=== PATIENT | male | born 1940 | race Caucasian/White ===

== ENCOUNTER → 2016-12-19 | Outpatient (CLI) | payer MEDICARE ==
--- NOTE | 2016-12-19 14:04 | REP ---
MRI LUMBAR SPINE WITHOUT CONTRAST: 12/19/2016 CLINICAL HISTORY: Low back pain radiating to both legs with weakness. TECHNIQUE: Sagittal T1, T2, and STIR images with axial T1- and T2-sequences provided. No comparison study. FINDINGS: Sagittal images show the vertebral body heights and marrow signal normal except for some minor discogenic endplate changes the superior aspect of L2. There is narrowing of the L5-S1 disc space without disc desiccation. The L4-5 levels and above all show loss of disc water signal. Disc height narrowed at all these levels except for L2-3. Conus terminates at L1-2. T10-11, T11-12, and T12-L1 disc levels show no bulge or herniation and no spinal or foraminal stenosis. At L1-2, there is a broad-based disc bulge without disc herniation. The ligamentum flavum hypertrophy is noted combining to cause some central canal stenosis with the AP canal diameter 8.3 mm. There is foraminal encroachment with loss of perineural fat on the right greater than left. At L2-3, minimal broad-based disc bulge without spinal stenosis. There is ligamentum flavum hypertrophy and minimal facet hypertrophy. Foramina are stenotic on the right more than left due to combined factors. At L3-L4, broad-based disc bulge with a central disc protrusion, ligamentum flavum, and facet hypertrophy attributing to central canal stenosis. The AP canal diameter is about 7 mm. Appears to be some lateral recess stenosis and foraminal encroachment bilaterally due to these combined factors with disc bulge extending into the foramina. At L4-L5, there is a broad-based disc bulge with disc protrusion centrally, right paracentral with a bulge extending into both foramina. There is some ligamentum flavum and facet hypertrophy noted with some lateral recess stenosis, right greater than left. Foramina are stenotic bilaterally due to the broad-based disc bulge and facet arthritis. At L5-S1, there is no evidence of a disc bulge or herniation and no central canal stenosis. The foramina show adequate perineural fat. The lower two levels demonstrate some epidural lipomatosis which is distorting the shape of the thecal sac. IMPRESSION: 1. Diffuse degenerative disc changes with loss of disc water signal and disc space narrowing, as described. No compression deformities. 2. Spondylosis with disc bulges and protrusions at multiple levels with spinal stenosis at L3-4, L2-3, and L1-2. There is also a broad-based bulge disc and protrusion at L4-5 with lateral recess stenosis on the right and multiple foraminal stenoses, as described above. Signed by Jose L Saldana MD 12/19/2016 02:33 P
== END ==
LOC: M RAD 10:03
PROVIDERS: ATTEND Family Medicine
DX: M47.896 Other spondylosis, lumbar region (principal); M51.36 Other intervertebral disc degeneration, lumbar region; M48.06 Spinal stenosis, lumbar region

== ENCOUNTER → 2016-12-29 | Outpatient (REF) | payer MEDICARE ==
[2016-12-29 16:50] LABS: ALBUMIN 4.1 GM/DL (3.2-5.2); CALCIUM LEVEL 9.1 MG/DL (8.8-10.2); CREATININE FOR GFR 1.31 MG/DL (0.70-1.30); GLOMERULAR FILTRATION RATE 56.6 (>42); PHOSPHORUS LEVEL 3.2 MG/DL (2.5-4.9); POTASSIUM SERUM 4.1 MEQ/L (3.5-5.1)
== END ==
LOC: M LABDRAWC 16:10
PROVIDERS: ATTEND Physician Assistant
DX: I50.32 Chronic diastolic (congestive) heart failure (principal)

== ENCOUNTER → 2017-02-27 | Outpatient (REF) | payer MEDICARE ==
[2017-02-27 12:04] LABS: ALBUMIN 3.8 GM/DL (3.2-5.2); ALBUMIN/GLOBULIN RATIO 1.27 (1.00-1.93); BILIRUBIN,TOTAL 0.6 MG/DL (0.2-1.0); CALCIUM LEVEL 9.1 MG/DL (8.8-10.2); CREATININE FOR GFR 1.6 MG/DL (0.70-1.30); MAGNESIUM LEVEL 1.6 MG/DL (1.8-2.4); POTASSIUM SERUM 4.3 MEQ/L (3.5-5.1); TOTAL PROTEIN 6.8 GM/DL (6.4-8.2)
== END ==
LOC: M LABDRAWC 11:23
PROVIDERS: ATTEND Physician Assistant
DX: I50.32 Chronic diastolic (congestive) heart failure (principal); E78.2 Mixed hyperlipidemia; E83.42 Hypomagnesemia

== ENCOUNTER → 2017-03-13 | Outpatient (REF) | payer MEDICARE ==
[2017-03-13 13:06] LABS: ALBUMIN 3.9 GM/DL (3.2-5.2); CALCIUM LEVEL 9.2 MG/DL (8.8-10.2); CREATININE FOR GFR 1.53 MG/DL (0.70-1.30); GLOMERULAR FILTRATION RATE 47.3 (>42); PHOSPHORUS LEVEL 3.5 MG/DL (2.5-4.9); POTASSIUM SERUM 4.1 MEQ/L (3.5-5.1)
== END ==
LOC: M LABDRAWC 12:13
PROVIDERS: ATTEND Physician Assistant
DX: I50.32 Chronic diastolic (congestive) heart failure (principal)

== ENCOUNTER → 2017-06-12 | Outpatient (REF) | payer MEDICARE | LOC: M SFHCCLAY 10:08 | PROVIDERS: ATTEND Family Medicine | DX: E11.9 Type 2 diabetes mellitus without complications (principal) ==

== ENCOUNTER → 2017-06-12 | Outpatient (REF) | payer MEDICARE ==
[2017-06-12 18:20] LABS: ALBUMIN 3.8 GM/DL (3.2-5.2); ALBUMIN/GLOBULIN RATIO 1.27 (1.00-1.93); BILIRUBIN,TOTAL 0.4 MG/DL (0.2-1.0); CALCIUM LEVEL 9.6 MG/DL (8.8-10.2); CREATININE FOR GFR 1.3 MG/DL (0.70-1.30); MAGNESIUM LEVEL 2.1 MG/DL (1.8-2.4); POTASSIUM SERUM 4.4 MEQ/L (3.5-5.1); TOTAL PROTEIN 6.8 GM/DL (6.4-8.2)
== END ==
LOC: M LABDRAWC 17:23
PROVIDERS: ATTEND Physician Assistant
DX: I25.10 Atherosclerotic heart disease of native coronary artery without angina pectoris (principal); I50.32 Chronic diastolic (congestive) heart failure; E78.2 Mixed hyperlipidemia; E11.9 Type 2 diabetes mellitus without complications

== ENCOUNTER → 2017-09-20 | Outpatient (REF) | payer MEDICARE ==
[2017-09-20 13:07] LABS: ALBUMIN 3.7 GM/DL (3.2-5.2); ANION GAP 7 MEQ/L (8-16); BLOOD UREA NITROGEN 18 MG/DL (7-18); CALCIUM LEVEL 9.1 MG/DL (8.8-10.2); CARBON DIOXIDE LEVEL 28 MEQ/L (21-32); CHLORIDE LEVEL 104 MEQ/L (98-107); CHOLESTEROL LEVEL 152 MG/DL (<200); CREATININE FOR GFR 1.07 MG/DL (0.70-1.30); GLOMERULAR FILTRATION RATE > 60.0 (>42); GLUCOSE, FASTING 157 MG/DL (83-110); MAGNESIUM LEVEL 1.8 MG/DL (1.8-2.4); PHOSPHORUS LEVEL 2.9 MG/DL (2.5-4.9); POTASSIUM SERUM 4.4 MEQ/L (3.5-5.1); SODIUM LEVEL 139 MEQ/L (136-145); TRIGLYCERIDES LEVEL 367 MG/DL (<150)
== END ==
LOC: M LAB REF 11:36
PROVIDERS: ATTEND Physician Assistant
DX: I50.32 Chronic diastolic (congestive) heart failure (principal); I25.10 Atherosclerotic heart disease of native coronary artery without angina pectoris; E83.42 Hypomagnesemia; E11.9 Type 2 diabetes mellitus without complications

== ENCOUNTER → 2017-09-20 | Outpatient (REF) | payer MEDICARE | LOC: M SFHCCLAY 09:55 | PROVIDERS: ATTEND Family Medicine | DX: E11.9 Type 2 diabetes mellitus without complications (principal) ==

== ENCOUNTER → 2017-10-23 | Outpatient (CLI) | payer MEDICARE ==
--- NOTE | 2017-10-24 07:22 | REP ---
Bilateral carotid duplex ultrasound: Bilateral carotid artery duplex ultrasound: Peak flow velocity analysis: RIGHT LEFT ICA Peak flow velocity cm/sec upper 73 110 ICA Diastolic flow velocity cm/sec 26 30 ICA/CCA Ratio 0.57 0.81 ECA Peak flow velocity cm/sec 185 141 CCA Peak flow velocity cm/sec 126 136 There is diffuse atheromatous plaque extending from the distal common carotid artery into the carotid bulb into the proximal internal carotid arteries and external carotid arteries bilaterally. The peak flow velocities in the right and left internal carotid arteries are now normal and have decreased from the prior study. The finding is compatible with less than 50% stenosis. The peak flow velocity in the right external carotid artery is mildly elevated from the prior study and compatible with 50 - 69% stenosis as previously. The peak flow velocity in the left external carotid artery has decreased from the prior study and is now compatible with 50 - 69% stenosis. The peak flow velocities in the right and left common carotid arteries are normal. Impression: The peak flow velocities in the right and left carotid arteries are now normal and the findings are compatible with less than 50% stenosis. There is persisting 50 - 69% stenosis in the right and left external carotid arteries, not significantly changed. There is antegrade flow in the vertebral arteries bilaterally. Signed by Silvio Pelaez MD 10/24/2017 07:14 A
== END ==
LOC: M RAD 17:34
PROVIDERS: ATTEND Family Medicine
DX: I65.23 Occlusion and stenosis of bilateral carotid arteries (principal); H53.40 Unspecified visual field defects

== ENCOUNTER → 2017-12-11 | Outpatient (REF) | payer MEDICARE ==
[2017-12-11 19:43] LABS: ALBUMIN 3.8 GM/DL (3.2-5.2); ANION GAP 7 MEQ/L (8-16); BLOOD UREA NITROGEN 24 MG/DL (7-18); CALCIUM LEVEL 8.6 MG/DL (8.8-10.2); CARBON DIOXIDE LEVEL 28 MEQ/L (21-32); CHLORIDE LEVEL 105 MEQ/L (98-107); CREATININE FOR GFR 1.34 MG/DL (0.70-1.30); GLUCOSE, FASTING 245 MG/DL (70-100); MAGNESIUM LEVEL 1.2 MG/DL (1.8-2.4); PHOSPHORUS LEVEL 2.6 MG/DL (2.5-4.9); POTASSIUM SERUM 4.1 MEQ/L (3.5-5.1); SODIUM LEVEL 140 MEQ/L (136-145)
== END ==
LOC: M LABDRWCV 16:44
DX: I50.32 Chronic diastolic (congestive) heart failure (principal); E83.42 Hypomagnesemia
CPT/HCPCS: 83735

== ENCOUNTER → 2017-12-19 | Outpatient (REF) | payer MEDICARE | LOC: M SFHCCLAY 08:57 | DX: E11.9 Type 2 diabetes mellitus without complications (principal) ==

== ENCOUNTER → 2018-01-01 | Outpatient (REF) | payer MEDICARE ==
[2018-01-01 13:48] LABS: MAGNESIUM LEVEL 1.7 MG/DL (1.8-2.4)
[2018-01-01 13:58] LABS: ESTIMATED AVERAGE GLUCOSE 194 MG/DL (60-110); HEMOGLOBIN A1c 8.4 %
== END ==
LOC: M SFHCCLAY 09:12
DX: E11.9 Type 2 diabetes mellitus without complications (principal); E83.42 Hypomagnesemia
CPT/HCPCS: 83735

== ENCOUNTER → 2018-04-02 | Outpatient (REF) | payer MEDICARE ==
[2018-04-02 17:56] LABS: ALBUMIN 3.9 GM/DL (3.2-5.2); ALBUMIN/GLOBULIN RATIO 1.15 (1.00-1.93); ALKALINE PHOSPHATASE 79 U/L (45-117); ALT/SGPT 22 U/L (12-78); ANION GAP 8 MEQ/L (8-16); AST/SGOT 12 U/L (7-37); BILIRUBIN,TOTAL 0.4 MG/DL (0.2-1.0); BLOOD UREA NITROGEN 24 MG/DL (7-18); CALCIUM LEVEL 9.1 MG/DL (8.8-10.2); CARBON DIOXIDE LEVEL 25 MEQ/L (21-32); CHLORIDE LEVEL 108 MEQ/L (98-107); CREATININE FOR GFR 1.37 MG/DL (0.70-1.30); GLOMERULAR FILTRATION RATE 53.5 (>42); GLUCOSE, FASTING 217 MG/DL (70-100); POTASSIUM SERUM 4.4 MEQ/L (3.5-5.1); SODIUM LEVEL 141 MEQ/L (136-145); TOTAL PROTEIN 7.3 GM/DL (6.4-8.2)
== END ==
LOC: M LABDRAWC 16:10
DX: I50.32 Chronic diastolic (congestive) heart failure (principal); E78.2 Mixed hyperlipidemia
CPT/HCPCS: 80053

== ENCOUNTER 2018-07-03 21:09 | Inpatient (IN) | payer MEDICARE ==
[2018-07-03] MEDS: LATANOPROST 0.005% OPHTH SOLN 2.5 ML OU (21:00)
[2018-07-03] MEDS: NS 1,000 ML IV (21:50)
[2018-07-03 22:06] LABS: ANION GAP 12 MEQ/L (8-16); BLOOD UREA NITROGEN 62 MG/DL (7-18); CALCIUM LEVEL 8.2 MG/DL (8.8-10.2); CARBON DIOXIDE LEVEL 16 MEQ/L (21-32); CHLORIDE LEVEL 113 MEQ/L (98-107); CREATININE FOR GFR 1.56 MG/DL (0.70-1.30); GLOMERULAR FILTRATION RATE 46.1 (>42); GLUCOSE, FASTING 225 MG/DL (70-100); POTASSIUM SERUM 4.8 MEQ/L (3.5-5.1); SODIUM LEVEL 141 MEQ/L (136-145)
[2018-07-03 22:09] LABS: ALBUMIN/GLOBULIN RATIO 1.11 (1.00-1.93); ALKALINE PHOSPHATASE 47 U/L (45-117); ALT/SGPT 22 U/L (12-78); AST/SGOT 10 U/L (7-37); BILIRUBIN,DIRECT < 0.1 MG/DL (0.0-0.2); BILIRUBIN,TOTAL 0.2 MG/DL (0.2-1.0); TOTAL PROTEIN 5.7 GM/DL (6.4-8.2)
[2018-07-03 22:35] LABS: INR 1.17; PROTHROMBIN TIME 15.1 SECONDS (12.1-14.4)
[2018-07-03 22:47] LABS: BASO # 0.1 10^3/uL (0.0-0.2); BASO % 0.3 % (0.0-1.0); EOS # 0.1 10^3/uL (0.0-0.50); EOS % 0.8 % (0.0-3.0); IMMATURE GRANULOCYTE % 3.7 % (0-3.0); LYMPH # 1.7 10^3/uL (1.5-4.5); LYMPH % 11.9 % (24.0-44.0); MEAN CORPUSCULAR HEMOGLOBIN 30.9 pg (27.0-33.0); MEAN CORPUSCULAR HGB CONC 31.3 g/dl (32.0-36.5); MEAN CORPUSCULAR VOLUME 98.8 fl (80.0-96.0); MONO # 1.1 10^3/uL (0.0-0.8); MONO % 7.7 % (0.0-5.0); NEUTROPHILS # 11.1 10^3/uL (1.8-7.7); NEUTROPHILS % 75.6 % (36.0-66.0); RED BLOOD COUNT 1.62 10^6/uL (4.30-6.10); RED CELL DISTRIBUTION WIDTH 15.8 % (11.5-14.5); WHITE BLOOD COUNT 14.7 10^3/uL (4.0-10.0)
[2018-07-03 22:50] LABS: PLATELET COUNT, AUTOMATED 4 10^3/uL (150-450); POS COUNT POS FLAG
[2018-07-03 22:51] LABS: IMMATURE PLATELET FRACTION % 30.2 % (0.0-10.9)
[2018-07-03 23:20] LABS: IMMEDIATE SPIN CROSSMATCH 1
[2018-07-04 00:05] LABS: IMMEDIATE SPIN CROSSMATCH 1 2
[2018-07-04] MEDS ORDERED: ACETAMINOPHEN TAB 650MG DOSE (2X325MG) PO (00:15)
[2018-07-04 00:53] LABS: FERRITIN 26 NG/ML (26-388); IRON (FE) 79 UG/DL (65-175); LDH LACTATE DEHYDROGENASE 128 U/L (87-241); PERCENT SATURATION 22.3 % (19.7-50.0); TOTAL IRON BINDING CAPACITY 355 UG/DL (250-450)
[2018-07-04] MEDS ORDERED: GLUCOSE 4 GM CHEW TABLET PO (01:00)
[2018-07-04] MEDS ORDERED: DEXTROSE 50% 50 ML SYRINGE IV (01:00)
[2018-07-04] MEDS ORDERED: IMMUNE GLOBULIN 10% 10GM 100ML 10 GM in APPROPRIATE DILUENT 1 EA IV (01:00)
[2018-07-04] MEDS: IMMUNE GLOBULIN 10% 10GM 100ML 10 GM in APPROPRIATE DILUENT 1 EA IV (01:00)
[2018-07-04] MEDS ORDERED: GLUCAGON FOR INJ 1 MG VIAL (J1610) SC (01:00)
[2018-07-04] MEDS: PANTOPRAZOLE 40MG INJ (PROTONIX) (C9113) IV ×2 (01:36→12:55)
[2018-07-04] MEDS: FUROSEMIDE 20 MG/2 ML VIAL (J1940) IV (01:36)
[2018-07-04] MEDS: methylPREDNISolone INJ 125 MG/2 ML VIAL (J2930) IV (01:36)
[2018-07-04 01:51] LABS: TROPONIN I < 0.02 NG/ML (< 0.10)
[2018-07-04 05:17] LABS: BASO # 0.1 10^3/uL (0.0-0.2); BASO % 0.3 % (0.0-1.0); EOS % 0.3 % (0.0-3.0); HEMATOCRIT 21.4 % (42.0-52.0); IMMATURE GRANULOCYTE % 3.8 % (0-3.0); MEAN CORPUSCULAR HEMOGLOBIN 31.4 pg (27.0-33.0); MEAN CORPUSCULAR HGB CONC 33.2 g/dl (32.0-36.5); MEAN CORPUSCULAR VOLUME 94.7 fl (80.0-96.0); MONO # 0.5 10^3/uL (0.0-0.8); MONO % 3.2 % (0.0-5.0); NEUTROPHILS # 12.4 10^3/uL (1.8-7.7); NEUTROPHILS % 85.4 % (36.0-66.0); RED BLOOD COUNT 2.26 10^6/uL (4.30-6.10); RED CELL DISTRIBUTION WIDTH 15.7 % (11.5-14.5); WHITE BLOOD COUNT 14.5 10^3/uL (4.0-10.0)
[2018-07-04 05:20] LABS: HEMOGLOBIN 7.1 g/dl (13.5-17.5); PLATELET COUNT, AUTOMATED 10 10^3/uL (150-450); POS COUNT POS FLAG
[2018-07-04 05:35] LABS: ALBUMIN 3.4 GM/DL (3.2-5.2); ALBUMIN/GLOBULIN RATIO 1.13 (1.00-1.93); ALKALINE PHOSPHATASE 52 U/L (45-117); ALT/SGPT 23 U/L (12-78); ANION GAP 11 MEQ/L (8-16); AST/SGOT 13 U/L (7-37); BILIRUBIN,TOTAL 0.6 MG/DL (0.2-1.0); BLOOD UREA NITROGEN 69 MG/DL (7-18); CALCIUM LEVEL 8.4 MG/DL (8.8-10.2); CARBON DIOXIDE LEVEL 17 MEQ/L (21-32); CHLORIDE LEVEL 111 MEQ/L (98-107); GLOMERULAR FILTRATION RATE 44.7 (>42); GLUCOSE, FASTING 252 MG/DL (70-100); SODIUM LEVEL 139 MEQ/L (136-145); TOTAL PROTEIN 6.4 GM/DL (6.4-8.2)
[2018-07-04] MEDS: IMMUNE GLOBULIN 10% 20GM 200ML 20 GM in APPROPRIATE DILUENT 1 EA IV ×2 (05:48→08:24)
[2018-07-04 07:37] LABS: REASON FOR REVIEW WBC/LEUKEMIA/BLAST; SOURCE PERIPHERAL SMEAR
[2018-07-04] MEDS: HumaLOG INSULIN (NovoLOG) PER UNIT SC ×4 (08:31→20:14)
[2018-07-04] MEDS: predniSONE 20 MG TAB PO (08:31)
[2018-07-04] MEDS: BISOPROLOL FUMARATE 10 MG TAB PO (08:32)
[2018-07-04 08:46] LABS: DIFF SLIDE NUMBER YES
[2018-07-04 09:33] LABS: VITAMIN B12 LEVEL 238 PG/ML (247-911)
[2018-07-04 09:34] LABS: FOLATE 15.1 NG/ML (>5.4)
[2018-07-04 12:51] LABS: BEDSIDE GLUCOSE 322 MG/DL (83-110)
[2018-07-04 13:16] LABS: IMMEDIATE SPIN CROSSMATCH 1 2
[2018-07-04 15:28] LABS: HEMATOCRIT 24.3 % (42.0-52.0); HEMOGLOBIN 8.2 g/dl (13.5-17.5); MEAN CORPUSCULAR HEMOGLOBIN 30.5 pg (27.0-33.0); MEAN CORPUSCULAR HGB CONC 33.7 g/dl (32.0-36.5); MEAN CORPUSCULAR VOLUME 90.3 fl (80.0-96.0); RED BLOOD COUNT 2.69 10^6/uL (4.30-6.10); RED CELL DISTRIBUTION WIDTH 16.7 % (11.5-14.5); WHITE BLOOD COUNT 15.4 10^3/uL (4.0-10.0)
[2018-07-04 15:35] LABS: ADD MANUAL DIFFER YES; DIFF SLIDE NUMBER 81; PLATELET COUNT, AUTOMATED 35 10^3/uL (150-450)
[2018-07-04 16:06] LABS: IMMEDIATE SPIN CROSSMATCH 1
[2018-07-04 16:11] LABS: BANDS 1 % (< 11); LYMPHOCYTES 11 % (16-52); METAMYELOCYTES 2 % (0-0); MYELOCYTES 1 % (0-0); NEUTROPHILS 83 % (35-75)
[2018-07-04 16:12] LABS: PLATELET ESTIMATE DECREASED (NORMAL); POLYCHROMASIA 1+
[2018-07-04 16:13] LABS: BURR CELLS 2+
[2018-07-04 16:14] LABS: MONOCYTES 2 % (0-8)
[2018-07-04 16:25] LABS: RETIC HEMOGLOBIN EQUIVALENT 33.9 pg (24-36); RETICULOCYTE # 189.8 10^9/L (17-77)
[2018-07-04 17:35] LABS: BEDSIDE GLUCOSE 304 MG/DL (83-110)
[2018-07-04] MEDS: FAMOTIDINE 20 MG TAB PO (17:41)
[2018-07-04] MEDS: LATANOPROST 0.005% OPHTH SOLN 2.5 ML OU (20:12)
[2018-07-04 20:17] LABS: BEDSIDE GLUCOSE 212 MG/DL (83-110)
[2018-07-04 20:23] LABS: SLIDE REVIEW Report
[2018-07-04] MEDS ORDERED: LISINOPRIL 20 MG TAB PO (21:00)
[2018-07-04 22:45] LABS: BASO % 0.3 % (0.0-1.0); EOS % 0.1 % (0.0-3.0); HEMATOCRIT 22.8 % (42.0-52.0); HEMOGLOBIN 7.6 g/dl (13.5-17.5); IMMATURE GRANULOCYTE % 4.4 % (0-3.0); LYMPH % 6.6 % (24.0-44.0); MEAN CORPUSCULAR HEMOGLOBIN 30.9 pg (27.0-33.0); MEAN CORPUSCULAR HGB CONC 33.3 g/dl (32.0-36.5); MEAN CORPUSCULAR VOLUME 92.7 fl (80.0-96.0); MONO # 1.3 10^3/uL (0.0-0.8); MONO % 8.3 % (0.0-5.0); NEUTROPHILS # 12.4 10^3/uL (1.8-7.7); NEUTROPHILS % 80.3 % (36.0-66.0); RED BLOOD COUNT 2.46 10^6/uL (4.30-6.10); RED CELL DISTRIBUTION WIDTH 17.3 % (11.5-14.5); WHITE BLOOD COUNT 15.4 10^3/uL (4.0-10.0)
[2018-07-04 22:51] LABS: PLATELET COUNT, AUTOMATED 53 10^3/uL (150-450); POS COUNT POS FLAG
[2018-07-04 22:52] LABS: IMMATURE PLATELET FRACTION % 18.2 % (0.0-10.9)
[2018-07-05] MEDS: PANTOPRAZOLE 40MG INJ (PROTONIX) (C9113) IV ×3 (00:32→21:21)
[2018-07-05 06:53] LABS: BASO % 0.1 % (0.0-1.0); HEMATOCRIT 21.3 % (42.0-52.0); HEMOGLOBIN 7.3 g/dl (13.5-17.5); IMMATURE GRANULOCYTE % 3.2 % (0-3.0); LYMPH # 0.9 10^3/uL (1.5-4.5); MEAN CORPUSCULAR HGB CONC 34.3 g/dl (32.0-36.5); MEAN CORPUSCULAR VOLUME 93.4 fl (80.0-96.0); MONO % 8.6 % (0.0-5.0); NEUTROPHILS # 9.1 10^3/uL (1.8-7.7); NEUTROPHILS % 80.1 % (36.0-66.0); RED BLOOD COUNT 2.28 10^6/uL (4.30-6.10); RED CELL DISTRIBUTION WIDTH 17.8 % (11.5-14.5); WHITE BLOOD COUNT 11.4 10^3/uL (4.0-10.0)
[2018-07-05 07:01] LABS: PLATELET COUNT, AUTOMATED 54 10^3/uL (150-450)
[2018-07-05 07:10] LABS: ALBUMIN 2.8 GM/DL (3.2-5.2); ALKALINE PHOSPHATASE 40 U/L (45-117); ALT/SGPT 23 U/L (12-78); ANION GAP 9 MEQ/L (8-16); AST/SGOT 15 U/L (7-37); BILIRUBIN,TOTAL 0.4 MG/DL (0.2-1.0); BLOOD UREA NITROGEN 62 MG/DL (7-18); CALCIUM LEVEL 8.1 MG/DL (8.8-10.2); CARBON DIOXIDE LEVEL 19 MEQ/L (21-32); CHLORIDE LEVEL 113 MEQ/L (98-107); CREATININE FOR GFR 1.62 MG/DL (0.70-1.30); GLOMERULAR FILTRATION RATE 44.1 (>42); GLUCOSE, FASTING 167 MG/DL (70-100); POTASSIUM SERUM 4.2 MEQ/L (3.5-5.1); SODIUM LEVEL 141 MEQ/L (136-145); TOTAL PROTEIN 6.3 GM/DL (6.4-8.2)
[2018-07-05] MEDS: HumaLOG INSULIN (NovoLOG) PER UNIT SC ×4 (07:46→21:37)
[2018-07-05] MEDS ORDERED: PREVNAR 13 VACCINE SYRINGE (CPT CODE:90670) IM (09:00)
[2018-07-05] MEDS: BISOPROLOL FUMARATE 10 MG TAB PO (09:07)
[2018-07-05] MEDS: predniSONE 20 MG TAB PO (09:08)
[2018-07-05 12:16] LABS: BEDSIDE GLUCOSE 211 MG/DL (83-110)
[2018-07-05] MEDS ORDERED: LORazepam 2 MG/ML VIAL (J2060) As Ordered (12:42)
[2018-07-05] MEDS: LIDOCAINE 1% MDV 20ML VIAL IM (12:45)
[2018-07-05] MEDS: LORazepam 2 MG/ML VIAL (J2060) IV (12:56)
[2018-07-05] MEDS ORDERED: LIDOCAINE 2% INJ 100 MG/5 ML SDV (FOR ANES.) As Ordered (16:06)
[2018-07-05] MEDS ORDERED: PROPOFOL 200 MG/20 ML VIAL As Ordered ×2 (16:06→16:33)
[2018-07-05] MEDS ORDERED: fentaNYL 100 MCG/2 ML INJECTION (J3010) As Ordered (16:07)
[2018-07-05] MEDS ORDERED: ePHEDrine SULFATE 25 MG/5 ML(5MG/ML) SYRINGE As Ordered (16:38)
[2018-07-05 16:51] LABS: BEDSIDE GLUCOSE 230 MG/DL (83-110)
[2018-07-05] MEDS ORDERED: ONDANSETRON 4MG/2ML VIAL (J2405) IV (17:00)
[2018-07-05] MEDS: CYANOCOBALAMIN 500 MCG TAB PO (18:17)
[2018-07-05] MEDS: KCL 20MEQ IN 0.45NS 1000ML 1,000 ML IV (18:17)
[2018-07-05] MEDS: FAMOTIDINE 20 MG TAB PO (18:17)
[2018-07-05] MEDS: LR 1,000 ML IV (18:20)
[2018-07-05 20:00] LABS: BASO % 0.1 % (0.0-1.0); HEMATOCRIT 23.3 % (42.0-52.0); HEMOGLOBIN 7.7 g/dl (13.5-17.5); IMMATURE GRANULOCYTE % 2.6 % (0-3.0); LYMPH # 0.8 10^3/uL (1.5-4.5); LYMPH % 6.9 % (24.0-44.0); MEAN CORPUSCULAR HEMOGLOBIN 30.7 pg (27.0-33.0); MEAN CORPUSCULAR VOLUME 92.8 fl (80.0-96.0); MONO # 0.7 10^3/uL (0.0-0.8); MONO % 5.8 % (0.0-5.0); NEUTROPHILS # 9.6 10^3/uL (1.8-7.7); NEUTROPHILS % 84.6 % (36.0-66.0); RED BLOOD COUNT 2.51 10^6/uL (4.30-6.10); RED CELL DISTRIBUTION WIDTH 17.7 % (11.5-14.5); WHITE BLOOD COUNT 11.4 10^3/uL (4.0-10.0)
[2018-07-05 20:05] LABS: PLATELET COUNT, AUTOMATED 26 10^3/uL (150-450); POS COUNT POS FLAG; POSITIVE MORPH POS FLAG
[2018-07-05] MEDS: LATANOPROST 0.005% OPHTH SOLN 2.5 ML OU (21:22)
[2018-07-05 21:34] LABS: BEDSIDE GLUCOSE 252 MG/DL (83-110)
[2018-07-05] MEDS: LEVEMIR (INSULIN DETEMIR) 1 UNITS/0.01ML SC (21:38)
[2018-07-05 22:09] LABS: BASO % 0.2 % (0.0-1.0); HEMATOCRIT 28.7 % (42.0-52.0); HEMOGLOBIN 8.5 g/dl (13.5-17.5); IMMATURE GRANULOCYTE % 2.2 % (0-3.0); LYMPH # 0.7 10^3/uL (1.5-4.5); LYMPH % 6.7 % (24.0-44.0); MEAN CORPUSCULAR HGB CONC 29.6 g/dl (32.0-36.5); MEAN CORPUSCULAR VOLUME 104.7 fl (80.0-96.0); MONO # 0.8 10^3/uL (0.0-0.8); NEUTROPHILS # 9.1 10^3/uL (1.8-7.7); NEUTROPHILS % 83.9 % (36.0-66.0); RED BLOOD COUNT 2.74 10^6/uL (4.30-6.10); RED CELL DISTRIBUTION WIDTH 18.5 % (11.5-14.5); WHITE BLOOD COUNT 10.8 10^3/uL (4.0-10.0)
[2018-07-05 22:10] LABS: PLATELET COUNT, AUTOMATED 35 10^3/uL (150-450)
[2018-07-06 06:36] LABS: HEMATOCRIT 22.5 % (42.0-52.0); HEMOGLOBIN 7.3 g/dl (13.5-17.5); IMMATURE GRANULOCYTE % 1.8 % (0-3.0); LYMPH # 1.2 10^3/uL (1.5-4.5); LYMPH % 15.9 % (24.0-44.0); MEAN CORPUSCULAR HEMOGLOBIN 30.9 pg (27.0-33.0); MEAN CORPUSCULAR HGB CONC 32.4 g/dl (32.0-36.5); MEAN CORPUSCULAR VOLUME 95.3 fl (80.0-96.0); MONO # 0.7 10^3/uL (0.0-0.8); MONO % 8.7 % (0.0-5.0); NEUTROPHILS # 5.7 10^3/uL (1.8-7.7); NEUTROPHILS % 73.6 % (36.0-66.0); RED BLOOD COUNT 2.36 10^6/uL (4.30-6.10); RED CELL DISTRIBUTION WIDTH 18.3 % (11.5-14.5); WHITE BLOOD COUNT 7.7 10^3/uL (4.0-10.0)
[2018-07-06 06:38] LABS: IMMATURE PLATELET FRACTION % 21.6 % (0.0-10.9); PLATELET COUNT, AUTOMATED 40 10^3/uL (150-450); POS COUNT POS FLAG
[2018-07-06 07:00] LABS: ALBUMIN 2.9 GM/DL (3.2-5.2); ALBUMIN/GLOBULIN RATIO 0.83 (1.00-1.93); ALKALINE PHOSPHATASE 54 U/L (45-117); ALT/SGPT 30 U/L (12-78); ANION GAP 7 MEQ/L (8-16); AST/SGOT 18 U/L (7-37); BILIRUBIN,TOTAL 0.4 MG/DL (0.2-1.0); BLOOD UREA NITROGEN 54 MG/DL (7-18); CARBON DIOXIDE LEVEL 22 MEQ/L (21-32); CHLORIDE LEVEL 113 MEQ/L (98-107); CREATININE FOR GFR 1.54 MG/DL (0.70-1.30); GLOMERULAR FILTRATION RATE 46.7 (>42); GLUCOSE, FASTING 155 MG/DL (70-100); POTASSIUM SERUM 4.3 MEQ/L (3.5-5.1); SODIUM LEVEL 142 MEQ/L (136-145); TOTAL PROTEIN 6.4 GM/DL (6.4-8.2)
[2018-07-06] MEDS: PANTOPRAZOLE 40MG INJ (PROTONIX) (C9113) IV ×2 (08:12→20:43)
[2018-07-06] MEDS: CYANOCOBALAMIN 500 MCG TAB PO (08:12)
[2018-07-06] MEDS: BISOPROLOL FUMARATE 10 MG TAB PO (08:12)
[2018-07-06] MEDS: predniSONE 20 MG TAB PO (08:12)
[2018-07-06] MEDS: HumaLOG INSULIN (NovoLOG) PER UNIT SC ×4 (08:13→21:29)
[2018-07-06 08:24] LABS: HAPTOGLOBIN 143 mg/dL (34-200)
[2018-07-06] MEDS ORDERED: PANTOPRAZOLE 20 MG TAB PO (09:00)
[2018-07-06 12:34] LABS: BEDSIDE GLUCOSE 300 MG/DL (83-110)
[2018-07-06 14:52] LABS: IMMEDIATE SPIN CROSSMATCH 1 2
[2018-07-06 17:01] LABS: BEDSIDE GLUCOSE 252 MG/DL (83-110)
[2018-07-06] MEDS: FAMOTIDINE 20 MG TAB PO (17:30)
[2018-07-06] MEDS: LATANOPROST 0.005% OPHTH SOLN 2.5 ML OU (20:43)
[2018-07-06 21:15] LABS: BEDSIDE GLUCOSE 268 MG/DL (83-110)
[2018-07-06] MEDS: LEVEMIR (INSULIN DETEMIR) 1 UNITS/0.01ML SC (21:29)
[2018-07-07 07:56] LABS: BEDSIDE GLUCOSE 129 MG/DL (83-110)
[2018-07-07] MEDS: HumaLOG INSULIN (NovoLOG) PER UNIT SC ×4 (08:15→21:20)
[2018-07-07] MEDS: predniSONE 20 MG TAB PO (08:16)
[2018-07-07] MEDS: BISOPROLOL FUMARATE 10 MG TAB PO (08:16)
[2018-07-07] MEDS: PANTOPRAZOLE 40MG INJ (PROTONIX) (C9113) IV ×2 (08:16→21:19)
[2018-07-07] MEDS: CYANOCOBALAMIN 500 MCG TAB PO (08:16)
[2018-07-07 11:56] LABS: BEDSIDE GLUCOSE 210 MG/DL (83-110)
[2018-07-07 15:17] LABS: BASO % 0.2 % (0.0-1.0); HEMATOCRIT 29.4 % (42.0-52.0); HEMOGLOBIN 9.6 g/dl (13.5-17.5); IMMATURE GRANULOCYTE % 0.8 % (0-3.0); LYMPH # 0.4 10^3/uL (1.5-4.5); LYMPH % 6.7 % (24.0-44.0); MEAN CORPUSCULAR HEMOGLOBIN 30.7 pg (27.0-33.0); MEAN CORPUSCULAR HGB CONC 32.7 g/dl (32.0-36.5); MEAN CORPUSCULAR VOLUME 93.9 fl (80.0-96.0); MONO # 0.2 10^3/uL (0.0-0.8); MONO % 2.7 % (0.0-5.0); NEUTROPHILS # 5.4 10^3/uL (1.8-7.7); NEUTROPHILS % 89.6 % (36.0-66.0); RED BLOOD COUNT 3.13 10^6/uL (4.30-6.10); RED CELL DISTRIBUTION WIDTH 17.2 % (11.5-14.5)
[2018-07-07 15:21] LABS: PLATELET COUNT, AUTOMATED 51 10^3/uL (150-450)
[2018-07-07 15:35] LABS: ANION GAP 13 MEQ/L (8-16); BLOOD UREA NITROGEN 32 MG/DL (7-18); CALCIUM LEVEL 7.9 MG/DL (8.8-10.2); CARBON DIOXIDE LEVEL 17 MEQ/L (21-32); CHLORIDE LEVEL 112 MEQ/L (98-107); CREATININE FOR GFR 1.64 MG/DL (0.70-1.30); GLOMERULAR FILTRATION RATE 43.5 (>42); GLUCOSE, FASTING 374 MG/DL (70-100); POTASSIUM SERUM 4.4 MEQ/L (3.5-5.1); SODIUM LEVEL 142 MEQ/L (136-145)
[2018-07-07] MEDS: FAMOTIDINE 20 MG TAB PO (16:43)
[2018-07-07 16:44] LABS: BEDSIDE GLUCOSE 378 MG/DL (83-110)
[2018-07-07 19:56] LABS: BEDSIDE GLUCOSE 270 MG/DL (83-110)
[2018-07-07] MEDS: LEVEMIR (INSULIN DETEMIR) 1 UNITS/0.01ML SC (21:20)
[2018-07-07] MEDS: LATANOPROST 0.005% OPHTH SOLN 2.5 ML OU (21:27)
[2018-07-08 06:33] LABS: ANION GAP 8 MEQ/L (8-16); BLOOD UREA NITROGEN 29 MG/DL (7-18); CALCIUM LEVEL 8.5 MG/DL (8.8-10.2); CARBON DIOXIDE LEVEL 21 MEQ/L (21-32); CHLORIDE LEVEL 114 MEQ/L (98-107); CREATININE FOR GFR 1.29 MG/DL (0.70-1.30); GLOMERULAR FILTRATION RATE 57.3 (>42); GLUCOSE, FASTING 125 MG/DL (70-100); POTASSIUM SERUM 4.2 MEQ/L (3.5-5.1); SODIUM LEVEL 143 MEQ/L (136-145)
[2018-07-08 06:49] LABS: BASO % 0.1 % (0.0-1.0); HEMOGLOBIN 10.2 g/dl (13.5-17.5); IMMATURE GRANULOCYTE % 0.6 % (0-3.0); LYMPH # 1.3 10^3/uL (1.5-4.5); LYMPH % 19.1 % (24.0-44.0); MEAN CORPUSCULAR HEMOGLOBIN 30.2 pg (27.0-33.0); MEAN CORPUSCULAR HGB CONC 32.9 g/dl (32.0-36.5); MEAN CORPUSCULAR VOLUME 91.7 fl (80.0-96.0); MONO # 0.6 10^3/uL (0.0-0.8); NEUTROPHILS # 4.9 10^3/uL (1.8-7.7); NEUTROPHILS % 71.2 % (36.0-66.0); RED BLOOD COUNT 3.38 10^6/uL (4.30-6.10); RED CELL DISTRIBUTION WIDTH 16.4 % (11.5-14.5); WHITE BLOOD COUNT 6.9 10^3/uL (4.0-10.0)
[2018-07-08 06:51] LABS: PLATELET COUNT, AUTOMATED 55 10^3/uL (150-450)
[2018-07-08] MEDS: PANTOPRAZOLE 40MG INJ (PROTONIX) (C9113) IV ×2 (08:16→20:21)
[2018-07-08] MEDS: CYANOCOBALAMIN 500 MCG TAB PO (08:17)
[2018-07-08] MEDS: predniSONE 20 MG TAB PO (08:17)
[2018-07-08] MEDS: HumaLOG INSULIN (NovoLOG) PER UNIT SC ×4 (08:17→20:22)
[2018-07-08] MEDS: BISOPROLOL FUMARATE 10 MG TAB PO (08:18)
[2018-07-08 12:02] LABS: BEDSIDE GLUCOSE 253 MG/DL (83-110)
[2018-07-08 16:45] LABS: BEDSIDE GLUCOSE 264 MG/DL (83-110)
[2018-07-08] MEDS: FAMOTIDINE 20 MG TAB PO (17:37)
[2018-07-08 20:14] LABS: BEDSIDE GLUCOSE 322 MG/DL (83-110)
[2018-07-08] MEDS: LATANOPROST 0.005% OPHTH SOLN 2.5 ML OU (20:21)
[2018-07-08] MEDS: LEVEMIR (INSULIN DETEMIR) 1 UNITS/0.01ML SC (20:22)
[2018-07-09 00:06] LABS: ADAMTS13 Activity 53.9 % (>66.8)
[2018-07-09] MEDS: MOM 30ML SUSPENSION UDC PO (06:08)
[2018-07-09 07:41] LABS: ANION GAP 9 MEQ/L (8-16); BLOOD UREA NITROGEN 24 MG/DL (7-18); CALCIUM LEVEL 8.2 MG/DL (8.8-10.2); CARBON DIOXIDE LEVEL 21 MEQ/L (21-32); CHLORIDE LEVEL 114 MEQ/L (98-107); CREATININE FOR GFR 1.24 MG/DL (0.70-1.30); GLUCOSE, FASTING 107 MG/DL (70-100); POTASSIUM SERUM 3.9 MEQ/L (3.5-5.1); SODIUM LEVEL 144 MEQ/L (136-145)
[2018-07-09] MEDS: HumaLOG INSULIN (NovoLOG) PER UNIT SC ×4 (08:10→21:55)
[2018-07-09] MEDS: PANTOPRAZOLE 40MG INJ (PROTONIX) (C9113) IV ×2 (08:11→21:54)
[2018-07-09] MEDS: BISOPROLOL FUMARATE 10 MG TAB PO (08:13)
[2018-07-09] MEDS: CYANOCOBALAMIN 500 MCG TAB PO (08:13)
[2018-07-09] MEDS: predniSONE 20 MG TAB PO (08:14)
[2018-07-09 08:17] LABS: EOS % 0.4 % (0.0-3.0); HEMATOCRIT 29.1 % (42.0-52.0); HEMOGLOBIN 9.8 g/dl (13.5-17.5); IMMATURE GRANULOCYTE % 0.5 % (0-3.0); LYMPH # 1.4 10^3/uL (1.5-4.5); LYMPH % 24.2 % (24.0-44.0); MEAN CORPUSCULAR HEMOGLOBIN 30.2 pg (27.0-33.0); MEAN CORPUSCULAR HGB CONC 33.7 g/dl (32.0-36.5); MEAN CORPUSCULAR VOLUME 89.8 fl (80.0-96.0); MONO # 0.5 10^3/uL (0.0-0.8); MONO % 9.6 % (0.0-5.0); NEUTROPHILS # 3.7 10^3/uL (1.8-7.7); NEUTROPHILS % 65.3 % (36.0-66.0); RED BLOOD COUNT 3.24 10^6/uL (4.30-6.10); RED CELL DISTRIBUTION WIDTH 15.8 % (11.5-14.5); WHITE BLOOD COUNT 5.6 10^3/uL (4.0-10.0)
[2018-07-09 08:18] LABS: PLATELET COUNT, AUTOMATED 51 10^3/uL (150-450)
[2018-07-09 08:22] LABS: IMMATURE PLATELET FRACTION % 7.6 % (0.0-10.9); PLATELET F 3.6
[2018-07-09 11:48] LABS: BEDSIDE GLUCOSE 172 MG/DL (83-110)
[2018-07-09] MEDS: GOLYTELY SOLN 4000 ML BTL PO (16:00)
[2018-07-09] MEDS: FAMOTIDINE 20 MG TAB PO (17:59)
[2018-07-09 21:05] LABS: BEDSIDE GLUCOSE 155 MG/DL (83-110)
[2018-07-09] MEDS: LATANOPROST 0.005% OPHTH SOLN 2.5 ML OU (21:54)
[2018-07-09] MEDS: LEVEMIR (INSULIN DETEMIR) 1 UNITS/0.01ML SC (21:54)
[2018-07-10] MEDS: GOLYTELY SOLN 4000 ML BTL PO (04:54)
[2018-07-10 07:03] LABS: BASO % 0.2 % (0.0-1.0); EOS % 0.3 % (0.0-3.0); HEMATOCRIT 31.3 % (42.0-52.0); HEMOGLOBIN 10.3 g/dl (13.5-17.5); IMMATURE GRANULOCYTE % 0.5 % (0-3.0); LYMPH # 1.6 10^3/uL (1.5-4.5); LYMPH % 23.6 % (24.0-44.0); MEAN CORPUSCULAR HEMOGLOBIN 29.9 pg (27.0-33.0); MEAN CORPUSCULAR HGB CONC 32.9 g/dl (32.0-36.5); MONO # 0.6 10^3/uL (0.0-0.8); MONO % 9.5 % (0.0-5.0); NEUTROPHILS # 4.4 10^3/uL (1.8-7.7); NEUTROPHILS % 65.9 % (36.0-66.0); RED BLOOD COUNT 3.44 10^6/uL (4.30-6.10); RED CELL DISTRIBUTION WIDTH 15.4 % (11.5-14.5); WHITE BLOOD COUNT 6.6 10^3/uL (4.0-10.0)
[2018-07-10 07:12] LABS: PLATELET COUNT, AUTOMATED 50 10^3/uL (150-450)
[2018-07-10 07:14] LABS: ANION GAP 8 MEQ/L (8-16); BLOOD UREA NITROGEN 20 MG/DL (7-18); CALCIUM LEVEL 8.5 MG/DL (8.8-10.2); CARBON DIOXIDE LEVEL 24 MEQ/L (21-32); CHLORIDE LEVEL 109 MEQ/L (98-107); CREATININE FOR GFR 1.19 MG/DL (0.70-1.30); GLOMERULAR FILTRATION RATE > 60.0 (>42); GLUCOSE, FASTING 91 MG/DL (70-100); POTASSIUM SERUM 3.9 MEQ/L (3.5-5.1); SODIUM LEVEL 141 MEQ/L (136-145)
[2018-07-10] MEDS: HumaLOG INSULIN (NovoLOG) PER UNIT SC ×4 (07:30→21:30)
[2018-07-10] MEDS: predniSONE 20 MG TAB PO (10:03)
[2018-07-10] MEDS: CYANOCOBALAMIN 500 MCG TAB PO (10:03)
[2018-07-10] MEDS: BISOPROLOL FUMARATE 10 MG TAB PO (10:04)
[2018-07-10] MEDS: PANTOPRAZOLE 40MG INJ (PROTONIX) (C9113) IV ×2 (10:04→21:29)
[2018-07-10 12:24] LABS: FLOW CYTOMETRY FOR SEND OUT See Pathology Report
[2018-07-10] MEDS ORDERED: PROPOFOL 200 MG/20 ML VIAL As Ordered (14:30)
[2018-07-10] MEDS ORDERED: LIDOCAINE 2% INJ 100 MG/5 ML SDV (FOR ANES.) As Ordered (14:30)
[2018-07-10] MEDS ORDERED: GLUCAGON FOR INJ 1 MG VIAL (J1610) As Ordered ×2 (15:47→16:15)
[2018-07-10] MEDS: FAMOTIDINE 20 MG TAB PO (18:05)
[2018-07-10 20:21] LABS: BEDSIDE GLUCOSE 147 MG/DL (83-110)
[2018-07-10 20:21] LABS: BEDSIDE GLUCOSE 167 MG/DL (83-110)
[2018-07-10 20:21] LABS: BEDSIDE GLUCOSE 260 MG/DL (83-110)
[2018-07-10 20:21] LABS: BEDSIDE GLUCOSE 260 MG/DL (83-110)
[2018-07-10] MEDS: LEVEMIR (INSULIN DETEMIR) 1 UNITS/0.01ML SC (21:29)
[2018-07-10] MEDS: LATANOPROST 0.005% OPHTH SOLN 2.5 ML OU (21:30)
[2018-07-11 08:08] LABS: BEDSIDE GLUCOSE 118 MG/DL (83-110)
[2018-07-11 08:22] LABS: EOS % 0.2 % (0.0-3.0); HEMATOCRIT 30.2 % (42.0-52.0); IMMATURE GRANULOCYTE % 0.5 % (0-3.0); LYMPH # 1.4 10^3/uL (1.5-4.5); LYMPH % 16.3 % (24.0-44.0); MEAN CORPUSCULAR HGB CONC 33.1 g/dl (32.0-36.5); MEAN CORPUSCULAR VOLUME 90.7 fl (80.0-96.0); MONO # 0.7 10^3/uL (0.0-0.8); MONO % 7.8 % (0.0-5.0); NEUTROPHILS # 6.7 10^3/uL (1.8-7.7); NEUTROPHILS % 75.2 % (36.0-66.0); RED BLOOD COUNT 3.33 10^6/uL (4.30-6.10); RED CELL DISTRIBUTION WIDTH 15.4 % (11.5-14.5); WHITE BLOOD COUNT 8.8 10^3/uL (4.0-10.0)
[2018-07-11 08:25] LABS: POS COUNT POS FLAG
[2018-07-11 08:26] LABS: PLATELET COUNT, AUTOMATED 16 10^3/uL (150-450)
[2018-07-11 08:27] LABS: IMMATURE PLATELET FRACTION % 26.4 % (0.0-10.9)
[2018-07-11 08:39] LABS: ANION GAP 11 MEQ/L (8-16); BLOOD UREA NITROGEN 20 MG/DL (7-18); CALCIUM LEVEL 8.3 MG/DL (8.8-10.2); CARBON DIOXIDE LEVEL 23 MEQ/L (21-32); CHLORIDE LEVEL 112 MEQ/L (98-107); CREATININE FOR GFR 1.16 MG/DL (0.70-1.30); GLOMERULAR FILTRATION RATE > 60.0 (>42); GLUCOSE, FASTING 94 MG/DL (70-100); POTASSIUM SERUM 3.5 MEQ/L (3.5-5.1); SODIUM LEVEL 146 MEQ/L (136-145)
[2018-07-11] MEDS: BISOPROLOL FUMARATE 10 MG TAB PO (08:49)
[2018-07-11] MEDS: HumaLOG INSULIN (NovoLOG) PER UNIT SC ×2 (08:49→12:30)
[2018-07-11] MEDS: CYANOCOBALAMIN 500 MCG TAB PO (08:49)
[2018-07-11] MEDS: PANTOPRAZOLE 40MG INJ (PROTONIX) (C9113) IV (08:50)
[2018-07-11] MEDS: predniSONE 20 MG TAB PO (08:50)
[2018-07-11 09:50] LABS: HIV 1&2 SCREEN CENTAUR NEGATIVE (NEGATIVE)
[2018-07-11 10:37] LABS: EOS % 0.2 % (0.0-3.0); HEMATOCRIT 33.3 % (42.0-52.0); HEMOGLOBIN 10.7 g/dl (13.5-17.5); IMMATURE GRANULOCYTE % 0.3 % (0-3.0); LYMPH # 1.2 10^3/uL (1.5-4.5); LYMPH % 12.4 % (24.0-44.0); MEAN CORPUSCULAR HEMOGLOBIN 29.8 pg (27.0-33.0); MEAN CORPUSCULAR HGB CONC 32.1 g/dl (32.0-36.5); MEAN CORPUSCULAR VOLUME 92.8 fl (80.0-96.0); MONO # 0.9 10^3/uL (0.0-0.8); MONO % 9.5 % (0.0-5.0); NEUTROPHILS # 7.3 10^3/uL (1.8-7.7); NEUTROPHILS % 77.6 % (36.0-66.0); RED BLOOD COUNT 3.59 10^6/uL (4.30-6.10); RED CELL DISTRIBUTION WIDTH 15.6 % (11.5-14.5); WHITE BLOOD COUNT 9.5 10^3/uL (4.0-10.0)
[2018-07-11 10:40] LABS: PLATELET COUNT, AUTOMATED 44 10^3/uL (150-450)
== END 2018-07-11 12:50 | disposition home or self-care (01) | DRG 813 ==
LOC: M ED INP 07-04 00:13 → M ICU 07-04 01:09 → M MS5PR 07-05 22:00 → M ED 21:09 → M MS5PR 07-04 21:30
PROC: 0DJ08ZZ Inspection of Upper Intestinal Tract, Via Natural or Artificial Opening Endoscopic (ICD-10-PCS; principal; 2018-07-05 16:00)
PROC: 30233N1 Transfusion of Nonautologous Red Blood Cells into Peripheral Vein, Percutaneous Approach (ICD-10-PCS; 2018-07-05 16:21)
PROC: 30233R1 Transfusion of Nonautologous Platelets into Peripheral Vein, Percutaneous Approach (ICD-10-PCS; 2018-07-05 16:21)
PROC: 0DBK8ZX Excision of Ascending Colon, Via Natural or Artificial Opening Endoscopic, Diagnostic (ICD-10-PCS; 2018-07-05 16:21)
PROC: 0DBN8ZX Excision of Sigmoid Colon, Via Natural or Artificial Opening Endoscopic, Diagnostic (ICD-10-PCS; 2018-07-05 16:21)
PROC: 0W3P8ZZ Control Bleeding in Gastrointestinal Tract, Via Natural or Artificial Opening Endoscopic (ICD-10-PCS; 2018-07-05 16:21)
PROC: 07DR3ZX Extraction of Iliac Bone Marrow, Percutaneous Approach, Diagnostic (ICD-10-PCS; 2018-07-05 16:21)
DX: D69.6 Thrombocytopenia, unspecified (principal); N17.9 Acute kidney failure, unspecified; D62 Acute posthemorrhagic anemia; K92.2 Gastrointestinal hemorrhage, unspecified; I25.10 Atherosclerotic heart disease of native coronary artery without angina pectoris; E11.51 Type 2 diabetes mellitus with diabetic peripheral angiopathy without gangrene; E78.5 Hyperlipidemia, unspecified; Z79.899 Other long term (current) drug therapy; Z95.2 Presence of prosthetic heart valve; K21.9 Gastro-esophageal reflux disease without esophagitis; E53.8 Deficiency of other specified B group vitamins; Z88.0 Allergy status to penicillin; Z88.8 Allergy status to other drugs, medicaments and biological substances; F17.200 Nicotine dependence, unspecified, uncomplicated; N18.3 Chronic kidney disease, stage 3 (moderate); I12.9 Hypertensive chronic kidney disease with stage 1 through stage 4 chronic kidney disease, or unspecified chronic kidney disease; D12.2 Benign neoplasm of ascending colon; D12.5 Benign neoplasm of sigmoid colon; K57.30 Diverticulosis of large intestine without perforation or abscess without bleeding; K64.8 Other hemorrhoids

== ENCOUNTER 2018-08-15 09:34 | Inpatient (IN) | payer MEDICARE ==
[2018-08-15 10:55] LABS: BEDSIDE GLUCOSE 206 MG/DL (83-110)
[2018-08-15] MEDS ORDERED: ACETAMINOPHEN TAB 650MG DOSE (2X325MG) PO (11:15)
[2018-08-15] MEDS ORDERED: KETOROLAC 30 MG/ML VIAL (J1885) IV (11:15)
[2018-08-15] MEDS ORDERED: ETOMIDATE INJ 20MG/10ML VIAL As Ordered (11:45)
[2018-08-15] MEDS ORDERED: fentaNYL 250 MCG/5 ML INJECTION (J3010) As Ordered (11:58)
[2018-08-15] MEDS ORDERED: ONDANSETRON 4MG/2ML VIAL (J2405) As Ordered (11:58)
[2018-08-15] MEDS ORDERED: METOCLOPRAMIDE INJ 10MG/2ML VIAL (J2765) As Ordered (11:58)
[2018-08-15] MEDS ORDERED: PROPOFOL 200 MG/20 ML VIAL As Ordered (11:58)
[2018-08-15] MEDS ORDERED: NEOSTIGMINE 10 MG/10 ML VIAL (J2710) As Ordered (11:58)
[2018-08-15] MEDS ORDERED: SEVOFLURANE INHAL SOLN 250 ML BTL As Ordered (11:58)
[2018-08-15] MEDS ORDERED: GLYCOPYRROLATE INJ 0.2 MG/ML 2 ML VIAL As Ordered (11:58)
[2018-08-15] MEDS ORDERED: MIDAZOLAM INJ 2 MG/2 ML VIAL (J2250) As Ordered ×2 (11:58→18:54)
[2018-08-15] MEDS ORDERED: ROCURONIUM BROMIDE 50 MG/5 ML VIAL As Ordered ×3 (11:58→15:47)
[2018-08-15] MEDS ORDERED: dexameTHASONE 4 MG/ML 1ML VIAL (J1100) As Ordered (11:58)
[2018-08-15] MEDS: cefoTEtan INJ 2GM VIAL (S0074 PER 500MG) As Ordered ×3 (12:04→17:42)
[2018-08-15] MEDS ORDERED: HYDROmorphone HCL 2 MG/ML 1ML VIAL (J1170) As Ordered (12:06)
[2018-08-15] MEDS ORDERED: ePHEDrine SULFATE 25 MG/5 ML(5MG/ML) SYRINGE As Ordered (12:08)
[2018-08-15] MEDS ORDERED: VASOPRESSIN INJ 20 UNITS/ML VIAL As Ordered (12:09)
[2018-08-15] MEDS ORDERED: fentaNYL 100 MCG/2 ML INJECTION (J3010) As Ordered ×2 (17:32→18:51)
[2018-08-15] MEDS: BUPIVACAINE/EPIN 0.25% 30 ML VIAL As Ordered (18:00)
[2018-08-15] MEDS: fentaNYL 100 MCG/2 ML INJECTION (J3010) IV ×4 (18:55→19:20)
[2018-08-15] MEDS: MIDAZOLAM INJ 2 MG/2 ML VIAL (J2250) IV (18:57)
[2018-08-15] MEDS ORDERED: PERCOCET 5MG/325MG TAB PO (19:00)
[2018-08-15] MEDS ORDERED: MORPHINE 10 MG/ML 1ML VIAL (J2270) IV (19:00)
[2018-08-15] MEDS: LR 1,000 ML IV ×2 (19:00→20:32)
[2018-08-15] MEDS ORDERED: ONDANSETRON 4MG/2ML VIAL (J2405) IV (19:00)
[2018-08-15] MEDS: LATANOPROST 0.005% OPHTH SOLN 2.5 ML OU (21:00)
[2018-08-15] MEDS: PANTOPRAZOLE 40MG INJ (PROTONIX) (C9113) IV (22:14)
[2018-08-15] MEDS: HEPARIN SOD (PORCINE) 5000 UNITS/ML VIAL SC (22:15)
[2018-08-15] MEDS: PRAVASTATIN 20 MG TAB PO (22:16)
[2018-08-15] MEDS: LISINOPRIL 20 MG TAB PO (22:16)
[2018-08-15] MEDS: SENOKOT S TAB PO (22:17)
[2018-08-15] MEDS: FAMOTIDINE 20 MG TAB PO (22:17)
[2018-08-15 22:41] LABS: BEDSIDE GLUCOSE 271 MG/DL (83-110)
[2018-08-16] MEDS: MORPHINE 4 MG/ML 1ML VIAL/SYRINGE (J2270) IV ×3 (00:44→14:42)
[2018-08-16] MEDS: LR 1,000 ML IV ×2 (04:22→08:27)
[2018-08-16] MEDS: HEPARIN SOD (PORCINE) 5000 UNITS/ML VIAL SC ×3 (05:14→21:22)
[2018-08-16 06:04] LABS: HEMATOCRIT 34.6 % (42.0-52.0); HEMOGLOBIN 11.6 g/dl (13.5-17.5); MEAN CORPUSCULAR HEMOGLOBIN 28.8 pg (27.0-33.0); MEAN CORPUSCULAR HGB CONC 33.5 g/dl (32.0-36.5); MEAN CORPUSCULAR VOLUME 85.9 fl (80.0-96.0); RED BLOOD COUNT 4.03 10^6/uL (4.30-6.10); RED CELL DISTRIBUTION WIDTH 13.9 % (11.5-14.5); WHITE BLOOD COUNT 13.3 10^3/uL (4.0-10.0)
[2018-08-16 06:05] LABS: PLATELET COUNT, AUTOMATED 74 10^3/uL (150-450)
[2018-08-16 06:06] LABS: IMMATURE PLATELET FRACTION % 5.1 % (0.0-10.9)
[2018-08-16 06:26] LABS: ALKALINE PHOSPHATASE 48 U/L (45-117); ALT/SGPT 27 U/L (12-78); ANION GAP 9 MEQ/L (8-16); AST/SGOT 113 U/L (7-37); BILIRUBIN,TOTAL 0.3 MG/DL (0.2-1.0); BLOOD UREA NITROGEN 33 MG/DL (7-18); CALCIUM LEVEL 8.4 MG/DL (8.8-10.2); CARBON DIOXIDE LEVEL 23 MEQ/L (21-32); CHLORIDE LEVEL 108 MEQ/L (98-107); CREATININE FOR GFR 2.13 MG/DL (0.70-1.30); GLOMERULAR FILTRATION RATE 32.1 (>42); GLUCOSE, FASTING 211 MG/DL (70-100); MAGNESIUM LEVEL 1.4 MG/DL (1.8-2.4); POTASSIUM SERUM 4.5 MEQ/L (3.5-5.1); SODIUM LEVEL 140 MEQ/L (136-145)
[2018-08-16] MEDS: SENOKOT S TAB PO ×2 (08:26→20:49)
[2018-08-16] MEDS: PANTOPRAZOLE 40MG INJ (PROTONIX) (C9113) IV ×2 (08:26→20:48)
[2018-08-16] MEDS: FUROSEMIDE 20 MG TAB PO (08:26)
[2018-08-16] MEDS: NORCO, ANEXSIA 5/325MG TABLET (HYDROcodone/ACETAMINOPHEN) PO ×2 (08:27→16:34)
[2018-08-16] MEDS: BISOPROLOL FUMARATE 10 MG TAB PO (08:30)
[2018-08-16] MEDS: NS 1,000 ML IV (09:59)
[2018-08-16] MEDS: MAG SULF 1GM/100ML (MAG RUN) 1 GM in APPROPRIATE DILUENT 1 EA IV ×3 (11:12→14:42)
[2018-08-16] MEDS: KCL 10MEQ IN D5/0.45NS 1000ML 1,000 ML IV ×3 (11:13→21:23)
[2018-08-16] MEDS: FAMOTIDINE 20 MG TAB PO (20:49)
[2018-08-16] MEDS: LISINOPRIL 20 MG TAB PO (20:49)
[2018-08-16] MEDS: PRAVASTATIN 20 MG TAB PO (20:50)
[2018-08-16] MEDS: LATANOPROST 0.005% OPHTH SOLN 2.5 ML OU (21:22)
[2018-08-17] MEDS: KCL 10MEQ IN D5/0.45NS 1000ML 1,000 ML IV ×3 (05:14→21:50)
[2018-08-17] MEDS: HEPARIN SOD (PORCINE) 5000 UNITS/ML VIAL SC ×3 (05:15→20:48)
[2018-08-17] MEDS: ONDANSETRON 4MG/2ML VIAL (J2405) IV (05:20)
[2018-08-17] MEDS: NORCO, ANEXSIA 5/325MG TABLET (HYDROcodone/ACETAMINOPHEN) PO (06:33)
[2018-08-17 06:46] LABS: HEMATOCRIT 34.3 % (42.0-52.0); HEMOGLOBIN 11.1 g/dl (13.5-17.5); MEAN CORPUSCULAR HEMOGLOBIN 28.8 pg (27.0-33.0); MEAN CORPUSCULAR HGB CONC 32.4 g/dl (32.0-36.5); MEAN CORPUSCULAR VOLUME 89.1 fl (80.0-96.0); RED BLOOD COUNT 3.85 10^6/uL (4.30-6.10); RED CELL DISTRIBUTION WIDTH 14.1 % (11.5-14.5); WHITE BLOOD COUNT 11.1 10^3/uL (4.0-10.0)
[2018-08-17 06:51] LABS: PLATELET COUNT, AUTOMATED 76 10^3/uL (150-450)
[2018-08-17 06:52] LABS: IMMATURE PLATELET FRACTION % 9.6 % (0.0-10.9)
[2018-08-17 07:14] LABS: ALBUMIN 2.9 GM/DL (3.2-5.2); ALBUMIN/GLOBULIN RATIO 0.78 (1.00-1.93); ALKALINE PHOSPHATASE 54 U/L (45-117); ALT/SGPT 29 U/L (12-78); ANION GAP 8 MEQ/L (8-16); AST/SGOT 73 U/L (7-37); BILIRUBIN,TOTAL 0.5 MG/DL (0.2-1.0); BLOOD UREA NITROGEN 20 MG/DL (7-18); CALCIUM LEVEL 8.1 MG/DL (8.8-10.2); CARBON DIOXIDE LEVEL 23 MEQ/L (21-32); CHLORIDE LEVEL 105 MEQ/L (98-107); CREATININE FOR GFR 1.51 MG/DL (0.70-1.30); GLOMERULAR FILTRATION RATE 47.8 (>42); GLUCOSE, FASTING 258 MG/DL (70-100); SODIUM LEVEL 136 MEQ/L (136-145); TOTAL PROTEIN 6.6 GM/DL (6.4-8.2)
[2018-08-17] MEDS: BISOPROLOL FUMARATE 10 MG TAB PO (08:59)
[2018-08-17] MEDS: SENOKOT S TAB PO ×2 (09:02→20:47)
[2018-08-17] MEDS: PANTOPRAZOLE 40MG INJ (PROTONIX) (C9113) IV ×2 (09:02→20:48)
[2018-08-17] MEDS: FUROSEMIDE 20 MG TAB PO (09:02)
[2018-08-17] MEDS: MORPHINE 4 MG/ML 1ML VIAL/SYRINGE (J2270) IV (11:40)
[2018-08-17 13:52] LABS: BEDSIDE GLUCOSE 235 MG/DL (83-110)
[2018-08-17] MEDS: KETOROLAC 30 MG/ML VIAL (J1885) IV (14:02)
[2018-08-17] MEDS: DICYCLOMINE 10 MG CAP PO ×2 (15:12→20:46)
[2018-08-17] MEDS: PRAVASTATIN 20 MG TAB PO (20:47)
[2018-08-17] MEDS: LISINOPRIL 20 MG TAB PO (20:47)
[2018-08-17] MEDS: FAMOTIDINE 20 MG TAB PO (20:47)
[2018-08-17] MEDS: LATANOPROST 0.005% OPHTH SOLN 2.5 ML OU (20:48)
[2018-08-18] MEDS: KETOROLAC 30 MG/ML VIAL (J1885) IV ×2 (02:27→15:15)
[2018-08-18] MEDS: HEPARIN SOD (PORCINE) 5000 UNITS/ML VIAL SC ×3 (05:39→21:29)
[2018-08-18] MEDS: KCL 10MEQ IN D5/0.45NS 1000ML 1,000 ML IV ×3 (05:40→23:24)
[2018-08-18 06:12] LABS: HEMATOCRIT 29.6 % (42.0-52.0); HEMOGLOBIN 9.5 g/dl (13.5-17.5); MEAN CORPUSCULAR HEMOGLOBIN 28.8 pg (27.0-33.0); MEAN CORPUSCULAR HGB CONC 32.1 g/dl (32.0-36.5); MEAN CORPUSCULAR VOLUME 89.7 fl (80.0-96.0); WHITE BLOOD COUNT 8.2 10^3/uL (4.0-10.0)
[2018-08-18 06:15] LABS: PLATELET COUNT, AUTOMATED 66 10^3/uL (150-450); POS COUNT POS FLAG
[2018-08-18 06:35] LABS: ALBUMIN 2.5 GM/DL (3.2-5.2); ALBUMIN/GLOBULIN RATIO 0.78 (1.00-1.93); ALKALINE PHOSPHATASE 48 U/L (45-117); ALT/SGPT 21 U/L (12-78); ANION GAP 8 MEQ/L (8-16); AST/SGOT 43 U/L (7-37); BILIRUBIN,TOTAL 0.4 MG/DL (0.2-1.0); BLOOD UREA NITROGEN 15 MG/DL (7-18); CALCIUM LEVEL 8.4 MG/DL (8.8-10.2); CARBON DIOXIDE LEVEL 23 MEQ/L (21-32); CHLORIDE LEVEL 106 MEQ/L (98-107); CREATININE FOR GFR 1.37 MG/DL (0.70-1.30); GLOMERULAR FILTRATION RATE 53.5 (>42); GLUCOSE, FASTING 219 MG/DL (70-100); MAGNESIUM LEVEL 2.1 MG/DL (1.8-2.4); SODIUM LEVEL 137 MEQ/L (136-145); TOTAL PROTEIN 5.7 GM/DL (6.4-8.2)
[2018-08-18] MEDS: BISOPROLOL FUMARATE 10 MG TAB PO (09:00)
[2018-08-18] MEDS: PANTOPRAZOLE 40MG INJ (PROTONIX) (C9113) IV ×2 (09:44→21:24)
[2018-08-18] MEDS: SENOKOT S TAB PO ×2 (09:44→21:28)
[2018-08-18] MEDS: DICYCLOMINE 10 MG CAP PO ×3 (09:44→21:28)
[2018-08-18] MEDS: FUROSEMIDE 20 MG TAB PO (09:45)
[2018-08-18] MEDS: ALVIMOPAN 12 MG CAPSULE (ENTEREG) PO ×2 (12:09→21:28)
[2018-08-18] MEDS: FAMOTIDINE 20 MG TAB PO (21:28)
[2018-08-18] MEDS: PRAVASTATIN 20 MG TAB PO (21:28)
[2018-08-18] MEDS: LISINOPRIL 20 MG TAB PO (21:29)
[2018-08-18] MEDS: LATANOPROST 0.005% OPHTH SOLN 2.5 ML OU (21:31)
[2018-08-19] MEDS: KETOROLAC 30 MG/ML VIAL (J1885) IV ×2 (03:50→11:53)
[2018-08-19] MEDS: HEPARIN SOD (PORCINE) 5000 UNITS/ML VIAL SC ×3 (05:45→21:40)
[2018-08-19] MEDS: KCL 10MEQ IN D5/0.45NS 1000ML 1,000 ML IV ×2 (05:45→16:34)
[2018-08-19 05:55] LABS: HEMATOCRIT 29.7 % (42.0-52.0); HEMOGLOBIN 9.5 g/dl (13.5-17.5); MEAN CORPUSCULAR HEMOGLOBIN 28.6 pg (27.0-33.0); MEAN CORPUSCULAR VOLUME 89.5 fl (80.0-96.0); PLATELET COUNT, AUTOMATED 124 10^3/uL (150-450); RED BLOOD COUNT 3.32 10^6/uL (4.30-6.10); RED CELL DISTRIBUTION WIDTH 13.9 % (11.5-14.5)
[2018-08-19 06:24] LABS: ALBUMIN 2.5 GM/DL (3.2-5.2); ALBUMIN/GLOBULIN RATIO 0.76 (1.00-1.93); ALKALINE PHOSPHATASE 49 U/L (45-117); ALT/SGPT 21 U/L (12-78); ANION GAP 9 MEQ/L (8-16); AST/SGOT 38 U/L (7-37); BILIRUBIN,TOTAL 0.4 MG/DL (0.2-1.0); BLOOD UREA NITROGEN 10 MG/DL (7-18); CALCIUM LEVEL 8.3 MG/DL (8.8-10.2); CARBON DIOXIDE LEVEL 23 MEQ/L (21-32); CHLORIDE LEVEL 111 MEQ/L (98-107); GLOMERULAR FILTRATION RATE > 60.0 (>42); GLUCOSE, FASTING 204 MG/DL (70-100); POTASSIUM SERUM 3.6 MEQ/L (3.5-5.1); SODIUM LEVEL 143 MEQ/L (136-145); TOTAL PROTEIN 5.8 GM/DL (6.4-8.2)
[2018-08-19] MEDS: PANTOPRAZOLE 40MG INJ (PROTONIX) (C9113) IV ×2 (09:30→21:39)
[2018-08-19] MEDS: SENOKOT S TAB PO ×2 (09:30→21:39)
[2018-08-19] MEDS: ALVIMOPAN 12 MG CAPSULE (ENTEREG) PO ×2 (09:31→21:40)
[2018-08-19] MEDS: BISOPROLOL FUMARATE 10 MG TAB PO (09:31)
[2018-08-19] MEDS: DICYCLOMINE 10 MG CAP PO ×3 (09:31→21:39)
[2018-08-19] MEDS: FUROSEMIDE 20 MG TAB PO (09:33)
[2018-08-19] MEDS: LATANOPROST 0.005% OPHTH SOLN 2.5 ML OU (21:40)
[2018-08-19] MEDS: LISINOPRIL 20 MG TAB PO (21:40)
[2018-08-19] MEDS: FAMOTIDINE 20 MG TAB PO (21:40)
[2018-08-19] MEDS: PRAVASTATIN 20 MG TAB PO (21:40)
[2018-08-20] MEDS: KETOROLAC 30 MG/ML VIAL (J1885) IV ×2 (00:04→06:10)
[2018-08-20] MEDS: KCL 10MEQ IN D5/0.45NS 1000ML 1,000 ML IV ×2 (01:12→05:34)
[2018-08-20] MEDS: HEPARIN SOD (PORCINE) 5000 UNITS/ML VIAL SC ×3 (05:34→21:22)
[2018-08-20 06:58] LABS: HEMATOCRIT 29.1 % (42.0-52.0); HEMOGLOBIN 9.5 g/dl (13.5-17.5); MEAN CORPUSCULAR HEMOGLOBIN 29.1 pg (27.0-33.0); MEAN CORPUSCULAR HGB CONC 32.6 g/dl (32.0-36.5); RED BLOOD COUNT 3.27 10^6/uL (4.30-6.10); RED CELL DISTRIBUTION WIDTH 13.9 % (11.5-14.5); WHITE BLOOD COUNT 6.7 10^3/uL (4.0-10.0)
[2018-08-20 07:23] LABS: ALBUMIN 2.4 GM/DL (3.2-5.2); ALBUMIN/GLOBULIN RATIO 0.75 (1.00-1.93); ALKALINE PHOSPHATASE 54 U/L (45-117); ALT/SGPT 19 U/L (12-78); ANION GAP 7 MEQ/L (8-16); AST/SGOT 25 U/L (7-37); BILIRUBIN,TOTAL 0.4 MG/DL (0.2-1.0); BLOOD UREA NITROGEN 9 MG/DL (7-18); CALCIUM LEVEL 8.6 MG/DL (8.8-10.2); CARBON DIOXIDE LEVEL 25 MEQ/L (21-32); CHLORIDE LEVEL 110 MEQ/L (98-107); GLOMERULAR FILTRATION RATE > 60.0 (>42); GLUCOSE, FASTING 181 MG/DL (70-100); MAGNESIUM LEVEL 1.9 MG/DL (1.8-2.4); POTASSIUM SERUM 3.6 MEQ/L (3.5-5.1); SODIUM LEVEL 142 MEQ/L (136-145); TOTAL PROTEIN 5.6 GM/DL (6.4-8.2)
[2018-08-20 07:40] LABS: PLATELET COUNT, AUTOMATED 133 10^3/uL (150-450); POS COUNT POS FLAG
[2018-08-20] MEDS: SENOKOT S TAB PO ×2 (08:48→21:22)
[2018-08-20] MEDS: BISOPROLOL FUMARATE 10 MG TAB PO (08:48)
[2018-08-20] MEDS: PANTOPRAZOLE 40MG INJ (PROTONIX) (C9113) IV ×2 (08:48→21:22)
[2018-08-20] MEDS: ALVIMOPAN 12 MG CAPSULE (ENTEREG) PO ×2 (08:49→21:23)
[2018-08-20] MEDS: FUROSEMIDE 20 MG TAB PO (08:49)
[2018-08-20] MEDS: DICYCLOMINE 10 MG CAP PO ×3 (08:49→21:22)
[2018-08-20] MEDS: LATANOPROST 0.005% OPHTH SOLN 2.5 ML OU (21:22)
[2018-08-20] MEDS: FAMOTIDINE 20 MG TAB PO (21:22)
[2018-08-20] MEDS: PRAVASTATIN 20 MG TAB PO (21:22)
[2018-08-20] MEDS: LISINOPRIL 20 MG TAB PO (21:23)
[2018-08-21] MEDS: KETOROLAC 30 MG/ML VIAL (J1885) IV (00:21)
[2018-08-21] MEDS: HEPARIN SOD (PORCINE) 5000 UNITS/ML VIAL SC (06:04)
[2018-08-21 06:10] LABS: HEMATOCRIT 31.4 % (42.0-52.0); HEMOGLOBIN 10.4 g/dl (13.5-17.5); MEAN CORPUSCULAR HEMOGLOBIN 28.7 pg (27.0-33.0); MEAN CORPUSCULAR HGB CONC 33.1 g/dl (32.0-36.5); MEAN CORPUSCULAR VOLUME 86.7 fl (80.0-96.0); PLATELET COUNT, AUTOMATED 115 10^3/uL (150-450); RED BLOOD COUNT 3.62 10^6/uL (4.30-6.10); RED CELL DISTRIBUTION WIDTH 13.9 % (11.5-14.5); WHITE BLOOD COUNT 8.6 10^3/uL (4.0-10.0)
[2018-08-21 06:23] LABS: ALBUMIN 2.5 GM/DL (3.2-5.2); ALBUMIN/GLOBULIN RATIO 0.64 (1.00-1.93); ALKALINE PHOSPHATASE 81 U/L (45-117); ALT/SGPT 27 U/L (12-78); ANION GAP 10 MEQ/L (8-16); AST/SGOT 28 U/L (7-37); BILIRUBIN,TOTAL 0.5 MG/DL (0.2-1.0); BLOOD UREA NITROGEN 13 MG/DL (7-18); CALCIUM LEVEL 8.5 MG/DL (8.8-10.2); CARBON DIOXIDE LEVEL 22 MEQ/L (21-32); CHLORIDE LEVEL 108 MEQ/L (98-107); CREATININE FOR GFR 1.39 MG/DL (0.70-1.30); GLOMERULAR FILTRATION RATE 52.6 (>42); GLUCOSE, FASTING 162 MG/DL (70-100); MAGNESIUM LEVEL 1.8 MG/DL (1.8-2.4); POTASSIUM SERUM 3.7 MEQ/L (3.5-5.1); SODIUM LEVEL 140 MEQ/L (136-145); TOTAL PROTEIN 6.4 GM/DL (6.4-8.2)
[2018-08-21] MEDS: DICYCLOMINE 10 MG CAP PO (08:44)
[2018-08-21] MEDS: PANTOPRAZOLE 40MG INJ (PROTONIX) (C9113) IV (08:44)
[2018-08-21] MEDS: BISOPROLOL FUMARATE 10 MG TAB PO (08:45)
[2018-08-21] MEDS: ALVIMOPAN 12 MG CAPSULE (ENTEREG) PO (08:45)
[2018-08-21] MEDS: SENOKOT S TAB PO (08:45)
[2018-08-21] MEDS: FUROSEMIDE 20 MG TAB PO (08:45)
== END 2018-08-21 11:05 | disposition home or self-care (01) | DRG 330 ==
LOC: M OR 09:34 → M MSPAV 19:55
PROVIDERS: Surgery
PROC: 0DTF0ZZ Resection of Right Large Intestine, Open Approach (ICD-10-PCS; principal; 2018-08-15 11:15)
PROC: 0DN80ZZ Release Small Intestine, Open Approach (ICD-10-PCS; 2018-08-15 11:15)
DX: C18.3 Malignant neoplasm of hepatic flexure (principal); K56.7 Ileus, unspecified; D12.4 Benign neoplasm of descending colon; E78.00 Pure hypercholesterolemia, unspecified; F17.210 Nicotine dependence, cigarettes, uncomplicated; E11.9 Type 2 diabetes mellitus without complications; I10 Essential (primary) hypertension; Z79.82 Long term (current) use of aspirin; Z79.02 Long term (current) use of antithrombotics/antiplatelets; Z79.84 Long term (current) use of oral hypoglycemic drugs; Z79.899 Other long term (current) drug therapy; Z88.0 Allergy status to penicillin; Z88.5 Allergy status to narcotic agent

== ENCOUNTER 2018-09-17 16:48 | Outpatient (CLI) | payer MEDICARE ==
[2018-09-17] MEDS: diphenhydrAMINE 50 MG CAP PO (18:27)
[2018-09-17] MEDS: predniSONE 10 MG TAB PO (18:27)
[2018-09-17] MEDS: PANTOPRAZOLE 40MG TAB (PROTONIX) PO (18:27)
[2018-09-17] MEDS: ACETAMINOPHEN TAB 650MG DOSE (2X325MG) PO (18:27)
== END 2018-09-17 20:55 | disposition home or self-care (01) ==
LOC: M INFU 16:48 → M MS5PR 17:30 → M INFU 20:55
DX: D69.6 Thrombocytopenia, unspecified (principal); Z79.899 Other long term (current) drug therapy; Z88.0 Allergy status to penicillin; Z88.8 Allergy status to other drugs, medicaments and biological substances
CPT/HCPCS: 36430

== ENCOUNTER → 2018-09-17 | Outpatient (REF) | payer MEDICARE ==
[2018-09-17 13:26] LABS: HEMATOCRIT 33.9 % (42.0-52.0); HEMOGLOBIN 10.6 g/dl (13.5-17.5); MEAN CORPUSCULAR HEMOGLOBIN 27.1 pg (27.0-33.0); MEAN CORPUSCULAR HGB CONC 31.3 g/dl (32.0-36.5); MEAN CORPUSCULAR VOLUME 86.7 fl (80.0-96.0); PLTBLUE- EDTA FREE CALC 2 K/mm3 (172-450); RED BLOOD COUNT 3.91 10^6/uL (4.30-6.10); RED CELL DISTRIBUTION WIDTH 13.8 % (11.5-14.5); WHITE BLOOD COUNT 8.5 10^3/uL (4.0-10.0)
[2018-09-17 14:03] LABS: POS COUNT POS FLAG
[2018-09-17 14:08] LABS: PLTBLUE- EDTA FREE MACHINE 2 10^3/uL (172-450)
== END ==
LOC: M LAB REF 11:47
DX: D69.6 Thrombocytopenia, unspecified (principal)

== ENCOUNTER → 2018-09-19 | Outpatient (CLI) | payer MEDICARE | LOC: M RAD 06:42 | DX: M79.89 Other specified soft tissue disorders (principal) | CPT/HCPCS: 93971 ==

== ENCOUNTER 2018-10-03 10:45 | Outpatient (CLI) | payer MEDICARE ==
[2018-10-03] MEDS: ACETAMINOPHEN TAB 650MG DOSE (2X325MG) PO (11:06)
[2018-10-03] MEDS: DILUENT IV (11:15)
[2018-10-03] MEDS: IMMUNE GLOBULIN IV (11:15)
== END 2018-10-03 18:30 | disposition home or self-care (01) ==
LOC: M INFU 10:45
DX: D69.3 Immune thrombocytopenic purpura (principal); Z88.0 Allergy status to penicillin
CPT/HCPCS: J1569

== ENCOUNTER → 2018-11-16 | Outpatient (REF) | payer MEDICARE ==
[~2018-11-16] MED LIST: ASPI81TAEC PO; BISO10TA6 PO; Docusate Sod/Senna PO; FAMO40TA3 PO; FURO20TA2 PO; GABA-843 PO; GLIM1TAB PO; HYDR-3719 PO; KLOR10TA76 PO; LANTINJ4 SC; LATA1POW XX; LATA5OPD OU; LISI40TA PO; MAGN64TASA PO; METF500T13 PO; NITR4TASL SL; NORCOTAB PO; PANT40TA3 PO; PLAV1TAB2 PO; PRAV40TA2 PO; PRED10TA2 PO; VITA100T20 PO; [UNRECOGNIZED DRUG - CODE] PO
== END ==
LOC: M LAB REF 11:09
PROVIDERS: ATTEND Internal Medicine Medical Oncology
DX: D69.6 Thrombocytopenia, unspecified (principal)
CPT/HCPCS: 87338; G0463

== ENCOUNTER → 2018-12-05 | Outpatient (CLI) | payer MEDICARE ==
[~2018-12-05] MED LIST changes: +GASTROGRAFIN SOLUTION 30ML (Q9963) As Ordered ONE; +ISOVUE-370 76% 100ML VIAL (Q9967) As Ordered ONE
--- NOTE | 2018-12-05 10:03 | REP ---
CT CHEST WITH IV CONTRAST: HISTORY: Rising CEA level. Colon cancer. 100 mL of intravenous Isovue [address] study. 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 There is no evidence of hilar or mediastinal mass or adenopathy. The thoracic aorta is calcific. Coronary artery calcification/stent graft material is seen. There is no pleural or pericardial effusion. No adrenal abnormality is observed. There is a granulomatous calcification in the left lower lobe just above the left diaphragm. There is a suspicious 10 mm peribronchovascular nodule in the left lower lobe on page 58 of 113 in series 204 of today's study. There is another suspicious and somewhat spiculated 11 mm nodule in the right upper lobe just above the minor fissure on page 47 of 143 in series 204 of today's study. There is an equivocal 0.4 cm nodule in the right middle lobe on page 57 of 113. No other significant pulmonary nodule is appreciated. On page 62, there is a pleural-based 7 mm nodule. No bony destructive lesion is seen. IMPRESSION: There are multiple noncalcified pulmonary nodules, at least two of which are suspicious for primary versus metastatic malignancy. These are located in the right middle lobe and left lower lobe as above. No adenopathy or bony destructive lesion seen. Electronically Signed by Saul Delacruz MD 12/05/2018 07:36 P
--- NOTE | 2018-12-05 10:22 | REP ---
CT ABDOMEN PELVIS WITH IV AND ORAL CONTRAST: HISTORY: Colon carcinoma. Rising CEA. Right colon adenocarcinoma status post extended right hemicolectomy, stage I . Date of resection August 16, 2018. Comparison CT study July 03, 2018. CT CONTRAST DOSE: 100 mL of intravenous Isovue [address] FINDINGS: There is no evidence of focal liver mass lesion. No adrenal lesion is observed. The pancreas is unremarkable. The gallbladder is slightly contracted, appears intact. No splenic abnormality is seen. The kidneys enhance symmetrically. There is a 1 cm cyst in the upper pole of the right kidney. Vascular calcification is noted bilaterally. There is cortical scarring in the lower pole left kidney. These findings are unchanged from the comparison CT study. No retroperitoneal adenopathy or mass lesion is observed. Aortic vascular calcification is seen. Previously noted small bowel anastomoses is seen and appears unchanged. Right hemicolectomy has been performed in the interval since the prior exam. The ileocolic anastomosis is unremarkable. No regional adenopathy or recurrent or residual mass is seen. Urinary bladder, seminal vesicles and prostate are unremarkable. There are surgical clips in the right inguinal soft tissues. Postoperative changes are seen in the anterior abdominal wall. IMPRESSION: No evidence of intra-abdominal metastasis or recurrence. Electronically Signed by Saul Delacruz MD 12/05/2018 07:36 P
== END ==
LOC: M RAD 07:44
PROVIDERS: ATTEND Internal Medicine Medical Oncology
DX: C18.9 Malignant neoplasm of colon, unspecified (principal); R91.8 Other nonspecific abnormal finding of lung field; N28.1 Cyst of kidney, acquired; Z90.49 Acquired absence of other specified parts of digestive tract
CPT/HCPCS: 71260; 74177; Q9963; Q9967

== ENCOUNTER → 2018-12-21 | Outpatient (REF) | payer MEDICARE ==
[~2018-12-21] MED LIST changes: -GASTROGRAFIN SOLUTION 30ML (Q9963) As Ordered ONE; -ISOVUE-370 76% 100ML VIAL (Q9967) As Ordered ONE
[2018-12-21 08:41] LABS: HEMOGLOBIN A1c 11.8 %
[2018-12-21 08:52] LABS: CALCIUM LEVEL 8.3 MG/DL (8.8-10.2); CREATININE FOR GFR 1.33 MG/DL (0.70-1.30); GLOMERULAR FILTRATION RATE 55.4 (>42); POTASSIUM SERUM 3.8 MEQ/L (3.5-5.1)
== END ==
LOC: M LAB REF 08:06
PROVIDERS: ATTEND Family Medicine
DX: E11.40 Type 2 diabetes mellitus with diabetic neuropathy, unspecified (principal)

== ENCOUNTER → 2019-01-15 | Outpatient (CLI) | payer MEDICARE ==
[~2019-01-15] MED LIST changes: +ACYC400T PO; +AZIT-12 PO; +BACT800T5 PO; +PRED10PA PO; +ZOLO50TA PO; +[UNRECOGNIZED DRUG - CODE] PO
--- NOTE | 2019-01-15 15:48 | REP ---
PET/CT: History: Restaging colon carcinoma. New pulmonary nodules on CT. Comparisons: Comparison CT study of the chest and abdomen and pelvis is from December 05, 2018. TECHNIQUE: 45 minutes following the intravenous injection of a 8.6 mCi dose of F-18 FDG, three-dimensional PET scintigraphy is acquired from the skull base to the proximal thighs. Triplanar noncontrast CT scanning is acquired through the same anatomic range for attenuation correction, and image registration with scan parameters optimized to minimize radiation exposure to the patient. PET scintigraphy and CT datasets were fused and displayed on a workstation with multiplanar and projection display capability. PET/CT Findings: The right middle lobe nodule is mildly hypermetabolic with maximum standard uptake value of 3.88. The left lower lobe peribronchovascular nodule is hypermetabolic. Maximum standard uptake value is 4.74. No other abnormal hypermetabolic uptake is seen in the chest. No abnormal hypermetabolic uptake is seen in the liver. No abnormal retroperitoneal or other abdominal or pelvic justus hypermetabolic uptake is seen. Postoperative changes are seen in the right groin and in the right abdomen. PET/CT imaging is otherwise unremarkable. Impression: The right middle lobe and left lower lobe pulmonary nodules show mildly hypermetabolic uptake as above. Electronically Signed by Saul Delacruz MD 01/15/2019 07:30 P
== END ==
LOC: M PLARAD 07:07
PROVIDERS: ATTEND Internal Medicine Medical Oncology
DX: C18.2 Malignant neoplasm of ascending colon (principal); C18.3 Malignant neoplasm of hepatic flexure; R91.8 Other nonspecific abnormal finding of lung field
CPT/HCPCS: 78815; A9552

== ENCOUNTER 2019-02-11 09:51 | Outpatient (RCR) | payer MEDICARE, OTHER ==
[~2019-02-11 09:51] MED LIST changes: +HYDR-3715 PO; +LASI20TA3 PO; +LATA0.0013 OU; -LATA5OPD OU; -NORCOTAB PO; -VITA100T20 PO; +VITA100T51 PO
[2019-02-12] MEDS ORDERED: FURO20TA2 PO (14:43)
[2019-02-12] MEDS ORDERED: FLUC100T PO (14:55)
[2019-02-19] MEDS ORDERED: PRED10TA2 PO (13:53)
[2019-04-11] MEDS ORDERED: PRED10TA2 PO (10:03)
== END 2019-02-17 ==
LOC: M OT 09:51
PROVIDERS: ATTEND Internal Medicine Medical Oncology
DX: G72.0 Drug-induced myopathy (principal); D69.3 Immune thrombocytopenic purpura

== ENCOUNTER 2019-02-25 09:07 | Outpatient (RCR) | payer MEDICARE ==
[~2019-02-25 09:07] MED LIST changes: +FLUC100T PO
== END 2019-03-19 ==
LOC: M PT 09:07
PROVIDERS: ATTEND Internal Medicine Medical Oncology
DX: G72.9 Myopathy, unspecified (principal)

== ENCOUNTER → 2019-03-15 | Outpatient (REF) | payer MEDICARE ==
[2019-03-15 17:18] LABS: ALBUMIN 2.8 GM/DL (3.2-5.2); BILIRUBIN,TOTAL 0.6 MG/DL (0.2-1.0); CALCIUM LEVEL 8.5 MG/DL (8.8-10.2); CREATININE FOR GFR 1.69 MG/DL (0.70-1.30); POTASSIUM SERUM 4.6 MEQ/L (3.5-5.1); TOTAL PROTEIN 5.5 GM/DL (6.4-8.2)
[2019-03-15 17:33] LABS: BASO % 0.2 % (0.0-1.0); EOS % 0.3 % (0.0-3.0); HEMATOCRIT 32.4 % (42.0-52.0); HEMOGLOBIN 10.4 g/dl (13.5-17.5); LYMPH % 15.3 % (24.0-44.0); MEAN CORPUSCULAR HGB CONC 32.1 g/dl (32.0-36.5); MEAN CORPUSCULAR VOLUME 99.7 fl (80.0-96.0); MONO # 0.2 10^3/uL (0.0-0.8); MONO % 2.4 % (0.0-5.0); NEUTROPHILS # 5.3 10^3/uL (1.8-7.7); RED BLOOD COUNT 3.25 10^6/uL (4.30-6.10); WHITE BLOOD COUNT 6.6 10^3/uL (4.0-10.0)
[2019-03-15 17:38] LABS: PLATELET COUNT, AUTOMATED 78 10^3/uL (150-450)
[2019-03-15 17:44] LABS: PLTBLUE- EDTA FREE CALC 50 K/mm3 (172-450)
[2019-03-15 18:49] LABS: PLTBLUE- EDTA FREE MACHINE 45 10^3/uL (172-450)
== END ==
LOC: M LABDRAWC 16:20
PROVIDERS: ATTEND Internal Medicine Hematology & Oncology
DX: Z79.899 Other long term (current) drug therapy (principal)

== ENCOUNTER → 2019-03-22 | Outpatient (REF) | payer MEDICARE ==
[2019-03-22 18:27] LABS: BILIRUBIN,TOTAL 0.5 MG/DL (0.2-1.0); CALCIUM LEVEL 8.4 MG/DL (8.8-10.2); CREATININE FOR GFR 1.35 MG/DL (0.70-1.30); GLOMERULAR FILTRATION RATE 54.4 (>42); POTASSIUM SERUM 3.8 MEQ/L (3.5-5.1); TOTAL PROTEIN 5.7 GM/DL (6.4-8.2)
[2019-03-22 19:33] LABS: PLTBLUE- EDTA FREE CALC 40 K/mm3 (172-450)
[2019-03-22 19:34] LABS: PLTBLUE- EDTA FREE MACHINE 36 10^3/uL (172-450)
[2019-03-22 20:25] LABS: BASO % 0.2 % (0.0-1.0); EOS % 0.2 % (0.0-3.0); HEMATOCRIT 35.1 % (42.0-52.0); HEMOGLOBIN 11.7 g/dl (13.5-17.5); LYMPH # 0.6 10^3/uL (1.5-4.5); LYMPH % 10.2 % (24.0-44.0); MEAN CORPUSCULAR HEMOGLOBIN 33.1 pg (27.0-33.0); MEAN CORPUSCULAR HGB CONC 33.3 g/dl (32.0-36.5); MEAN CORPUSCULAR VOLUME 99.2 fl (80.0-96.0); MONO # 0.1 10^3/uL (0.0-0.8); MONO % 2.3 % (0.0-5.0); NEUTROPHILS # 4.9 10^3/uL (1.8-7.7); RED BLOOD COUNT 3.54 10^6/uL (4.30-6.10); WHITE BLOOD COUNT 5.7 10^3/uL (4.0-10.0)
[2019-03-22 20:28] LABS: PLATELET COUNT, AUTOMATED 56 10^3/uL (150-450)
== END ==
LOC: M LABDRAWC 16:22
PROVIDERS: ATTEND Internal Medicine Hematology & Oncology
DX: Z51.81 Encounter for therapeutic drug level monitoring (principal); K08.89 Other specified disorders of teeth and supporting structures; J34.89 Other specified disorders of nose and nasal sinuses

== ENCOUNTER → 2019-03-22 | Outpatient (CLI) | payer MEDICARE ==
--- NOTE | 2019-03-22 12:37 | REP ---
Chest two views HISTORY: Chronic heart failure Comparison: 10/06/2015 The lungs are clear. The heart is upper limits of normal in size. The pulmonary vasculature is normal in appearance. The bony structure is intact. IMPRESSION: No acute disease.
== END ==
LOC: M CLY 11:59
PROVIDERS: ATTEND Physician Assistant
DX: Z51.81 Encounter for therapeutic drug level monitoring (principal); K08.89 Other specified disorders of teeth and supporting structures; J34.89 Other specified disorders of nose and nasal sinuses; I50.32 Chronic diastolic (congestive) heart failure

== ENCOUNTER → 2019-03-29 | Outpatient (REF) | payer MEDICARE ==
[2019-03-29 17:09] LABS: BASO % 0.2 % (0.0-1.0); EOS % 0.5 % (0.0-3.0); HEMATOCRIT 34.5 % (42.0-52.0); HEMOGLOBIN 11.2 g/dl (13.5-17.5); LYMPH # 0.8 10^3/uL (1.5-4.5); MEAN CORPUSCULAR HEMOGLOBIN 31.8 pg (27.0-33.0); MEAN CORPUSCULAR HGB CONC 32.5 g/dl (32.0-36.5); MONO # 0.1 10^3/uL (0.0-0.8); MONO % 2.7 % (0.0-5.0); NEUTROPHILS # 3.4 10^3/uL (1.8-7.7); NEUTROPHILS % 77.5 % (36.0-66.0); RED BLOOD COUNT 3.52 10^6/uL (4.30-6.10); WHITE BLOOD COUNT 4.4 10^3/uL (4.0-10.0)
[2019-03-29 17:17] LABS: BILIRUBIN,TOTAL 0.6 MG/DL (0.2-1.0); CALCIUM LEVEL 8.7 MG/DL (8.8-10.2); CREATININE FOR GFR 1.3 MG/DL (0.70-1.30); GLOMERULAR FILTRATION RATE 56.7 (>42); POTASSIUM SERUM 3.7 MEQ/L (3.5-5.1); TOTAL PROTEIN 6.1 GM/DL (6.4-8.2)
[2019-03-29 17:53] LABS: PLATELET COUNT, AUTOMATED 51 10^3/uL (150-450)
[2019-03-29 19:39] LABS: PLTBLUE- EDTA FREE CALC 33 K/mm3 (172-450); PLTBLUE- EDTA FREE MACHINE 30 10^3/uL (172-450)
== END ==
LOC: M LABDRAWC 16:28
PROVIDERS: ATTEND Internal Medicine Hematology & Oncology
DX: Z79.899 Other long term (current) drug therapy (principal)

== ENCOUNTER → 2019-05-09 | Outpatient (REF) | payer MEDICARE ==
[~2019-05-09] MED LIST changes: +BIMA01SOL OP; +BISO10TA13 PO; -BISO10TA6 PO; +BISO10TA7 PO; +HYDR-3781 PO
== END ==
LOC: M SFHCCAPE 14:53
PROVIDERS: ATTEND Physician Assistant
DX: L08.9 Local infection of the skin and subcutaneous tissue, unspecified (principal)
CPT/HCPCS: 87070; 87077; 87186; G0463

== ENCOUNTER 2019-05-20 18:45 | Emergency (ER) | payer MEDICARE ==
[~2019-05-20] VITALS: Ht 180.3 cm; Wt 105.6 kg
[~2019-05-20 18:45] MED LIST changes: -BIMA01SOL OP; +BIMA01SOL OU; -BISO10TA13 PO
--- NOTE | 2019-05-20 19:39 | REP ---
Clinical: Chest pain. Acute cerebrovascular accident . Comparison: 03/22/2019 . Findings: The mediastinum and cardiac silhouette are stable and within normal limits for portable technique. Evidence of prior sternotomy. The lung herrera are clear without acute consolidation, effusion, or pneumothorax. Skeletal structures are intact. Impression: No acute cardiopulmonary process appreciated. Electronically Signed by Sergio Olmedo MD 05/20/2019 07:31 P
[2019-05-20 19:42] LABS: BASO % 0.2 % (0.0-1.0); EOS % 0.4 % (0.0-3.0); HEMATOCRIT 40.7 % (42.0-52.0); HEMOGLOBIN 13.2 g/dl (13.5-17.5); LYMPH # 2.1 10^3/uL (1.5-4.5); LYMPH % 37.3 % (24.0-44.0); MEAN CORPUSCULAR HEMOGLOBIN 31.7 pg (27.0-33.0); MEAN CORPUSCULAR HGB CONC 32.4 g/dl (32.0-36.5); MEAN CORPUSCULAR VOLUME 97.6 fl (80.0-96.0); MONO # 0.3 10^3/uL (0.0-0.8); MONO % 5.2 % (0.0-5.0); NEUTROPHILS # 3.2 10^3/uL (1.8-7.7); NEUTROPHILS % 56.7 % (36.0-66.0); PLATELET COUNT, AUTOMATED 79 10^3/uL (150-450); RED BLOOD COUNT 4.17 10^6/uL (4.30-6.10); WHITE BLOOD COUNT 5.6 10^3/uL (4.0-10.0)
[2019-05-20 19:55] LABS: INR 1.02; PROTHROMBIN TIME 13.1 SECONDS (11.8-14.0)
[2019-05-20 19:56] LABS: PARTIAL THROMBOPLASTIN TIME 25.9 SECONDS (25.0-38.4)
--- NOTE | 2019-05-20 20:00 | REPVR ---
EXAM: CT Head Without Contrast EXAM DATE/TIME: 05/20/2019 7:17 PM CLINICAL HISTORY: 79 years old, male; Injury or trauma; Fall; Initial encounter; Blunt trauma (contusions or hematomas); Consciousness not specified; Other: Weakness; Additional info: Weakness, frequent falls TECHNIQUE: Imaging protocol: Axial computed tomography images of the head without contrast. Radiation optimization: All CT scans at this facility use at least one of these dose optimization techniques: automated exposure control; mA and/or kV adjustment per patient size (includes targeted exams where dose is matched to clinical indication); or iterative reconstruction. COMPARISON: CT Head without contrast 11/15/2018 11:11 AM FINDINGS: Brain: The brain demonstrates diffuse volume loss. There is white matter hypodensity most consistent with chronic small vessel ischemic change. No visible evolving territorial infarct. No hemorrhage. Ventricles: The ventricles appear mildly enlarged in keeping with volume loss, stable since prior. Bones/joints: No acute calvarial fracture seen. There is a chronic appearing nasal bone fracture. Sinuses: Mild left maxillary sinus mucosal thickening. Mastoid air cells: Visualized mastoid air cells are well aerated. No mastoid effusion. Soft tissues: Unremarkable. IMPRESSION: No acute intracranial abnormality seen. Electronically signed by: Ange Davis On 05/20/2019 20:00:11 PM
--- NOTE | 2019-05-20 20:07 | REPVR ---
EXAM: CT Cervical Spine Without Contrast EXAM DATE/TIME: 05/20/2019 7:17 PM CLINICAL HISTORY: 79 years old, male; Injury or trauma; Fall; Initial encounter; Blunt trauma TECHNIQUE: Imaging protocol: Axial computed tomography images of the cervical spine without contrast. Coronal and sagittal reformatted images were created and reviewed. Radiation optimization: All CT scans at this facility use at least one of these dose optimization techniques: automated exposure control; mA and/or kV adjustment per patient size (includes targeted exams where dose is matched to clinical indication); or iterative reconstruction. COMPARISON: PT PET/CT Skull/mid thigh 01/15/2019 8:48 AM FINDINGS: Vertebrae: Straightening of the normal cervical lordosis may be positional or due to muscle spasm. No acute fracture seen. Discs/Spinal canal/Neural foramina: No high-grade disc height loss. Mild cervical prevertebral spondylosis. Uncovertebral arthropathy is mild at C5-6. There is moderate cervical facet arthropathy, in particular on the left at C2-3. Ligamentum flavum buckling with calcifications at several levels. No severe stenoses. Soft tissues: Unremarkable. Lungs: Lung apices are normal. Vasculature: Moderate calcified plaque at the right carotid bifurcation causing right carotid bulb stenosis. IMPRESSION: No cervical spine fracture seen. Electronically signed by: Ange Davis On 05/20/2019 20:07:10 PM
[2019-05-20 20:21] LABS: CALCIUM LEVEL 8.7 MG/DL (8.8-10.2); CK-MB VALUE MASS 2.5 NG/ML (<3.6); CREATININE FOR GFR 1.27 MG/DL (0.70-1.30); GLOMERULAR FILTRATION RATE 58.2 (>42); MB/CK RELATIVE INDEX 1.21 (< OR =4); POTASSIUM SERUM 3.6 MEQ/L (3.5-5.1); TROPONIN I 0.02 NG/ML (< 0.10)
[2019-05-20] MEDS ORDERED: PERCOCET 5MG/325MG TAB PO ONE (20:45)
[2019-05-20] MEDS ORDERED: NS 1,000 ML IV ONE (21:00)
--- NOTE | 2019-05-20 22:22 | ECGEPIP ---
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
[2019-05-20] MEDS ORDERED: BISO10TA13 PO (22:37)
[2019-05-20 22:45] VITALS: BP 164/84
[2019-05-20] MEDS ORDERED: NORCO, ANEXSIA 5/325MG TABLET (HYDROcodone/ACETAMINOPHEN) PO ONE (22:45)
--- NOTE | 2019-05-20 22:48 | REPVR ---
EXAM: US Duplex Bilateral Lower Extremity Veins EXAM DATE/TIME: 05/20/2019 9:49 PM CLINICAL HISTORY: 79 years old, male; Edema, localized; Lower extremity, bilateral; Additional info: B/l leg swelling TECHNIQUE: Imaging protocol: Real-time duplex ultrasound of the Bilateral Lower Extremities with 2-D menjivar scale, color Doppler flow and spectral waveform analysis. Complete exam focused on the bilateral lower extremity veins. COMPARISON: No relevant prior studies available. FINDINGS: Right deep veins: Unremarkable. The common femoral, femoral, proximal profunda femoral and popliteal veins are patent without thrombus. Normal Doppler waveforms. Normal compressibility and/or augmentation response. Right superficial veins: Saphenofemoral junction is patent without thrombus. Left deep veins: Unremarkable. The common femoral, femoral, proximal profunda femoral and popliteal veins are patent without thrombus. Normal Doppler waveforms. Normal compressibility and/or augmentation response. Left superficial veins: Saphenofemoral junction is patent without thrombus. Soft tissues: Unremarkable. IMPRESSION: No acute findings. No evidence of deep vein thrombosis. Electronically signed by: Minh Barreto On 05/20/2019 22:48:27 PM
[2019-05-29] MEDS ORDERED: KLOR10TA76 PO (11:20)
== END 2019-05-20 23:17 | disposition home or self-care (01) ==
LOC: EDBD 18:45 → M ED 18:45
DX: R19.7 Diarrhea, unspecified (principal); S61.419A Laceration without foreign body of unspecified hand, initial encounter; Y92.9 Unspecified place or not applicable; Y93.9 Activity, unspecified; R94.31 Abnormal electrocardiogram [ECG] [EKG]; I45.19 Other right bundle-branch block; I49.3 Ventricular premature depolarization; C18.9 Malignant neoplasm of colon, unspecified; F17.210 Nicotine dependence, cigarettes, uncomplicated; Z79.4 Long term (current) use of insulin; Z79.891 Long term (current) use of opiate analgesic; Z88.0 Allergy status to penicillin; Z88.8 Allergy status to other drugs, medicaments and biological substances; Z91.81 History of falling

== ENCOUNTER 2019-06-08 20:11 | Inpatient (IN) | payer MEDICARE, OTHER ==
[~2019-06-08] VITALS: Ht 180.3 cm; Wt 113.5 kg
[~2019-06-08 20:11] MED LIST changes: +BISO10TA10 PO; +BISO10TA13 PO; -BISO10TA7 PO; -GLIM1TAB PO; +GLIM1TAB2 PO
[2019-06-08] MEDS ORDERED: LEVEMIR (INSULIN DETEMIR) 1 UNITS/0.01ML SC SCH (21:00)
[2019-06-08] MEDS: HumaLOG INSULIN (NovoLOG) PER UNIT SC SCH (21:00)
[2019-06-08] MEDS ORDERED: NS 1,000 ML IV ONE ×2 (21:15→23:30)
[2019-06-08 21:21] LABS: HEMATOCRIT 38.5 % (42.0-52.0); HEMOGLOBIN 12.3 g/dl (13.5-17.5); MEAN CORPUSCULAR HEMOGLOBIN 30.1 pg (27.0-33.0); MEAN CORPUSCULAR HGB CONC 31.9 g/dl (32.0-36.5); MEAN CORPUSCULAR VOLUME 94.1 fl (80.0-96.0); PLATELET COUNT, AUTOMATED 116 10^3/uL (150-450); RED BLOOD COUNT 4.09 10^6/uL (4.30-6.10)
[2019-06-08 21:23] LABS: INR 1.01
[2019-06-08 21:24] LABS: PARTIAL THROMBOPLASTIN TIME 30.9 SECONDS (25.0-38.4)
[2019-06-08 21:44] LABS: BLOOD UREA NITROGEN 14 MG/DL (7-18); CALCIUM LEVEL 8.3 MG/DL (8.8-10.2); CARBON DIOXIDE LEVEL 32 MEQ/L (21-32); CHLORIDE LEVEL 98 MEQ/L (98-107); CK-MB VALUE MASS 1.2 NG/ML (<3.6); CPK CREATINE PHOSPHOKINASE 89 U/L (39-308); CREATININE FOR GFR 1.56 MG/DL (0.70-1.30); ETHYL ALCOHOL (ETHANOL) < 0.003 % (0.000-0.010); GLOMERULAR FILTRATION RATE 45.9 (>42); GLUCOSE, FASTING 302 MG/DL (70-100); MB/CK RELATIVE INDEX 1.35 (< OR =4); POTASSIUM SERUM 3.6 MEQ/L (3.5-5.1); SODIUM LEVEL 139 MEQ/L (136-145); TROPONIN I < 0.02 NG/ML (< 0.10)
[2019-06-08 21:57] LABS: EOSINOPHILS 1 % (0-5); LYMPHOCYTES 30 % (16-52); MONOCYTES 7 % (0-8); NEUTROPHILS 62 % (35-75)
[2019-06-08 21:58] LABS: PLATELET ESTIMATE DECREASED (NORMAL)
--- NOTE | 2019-06-08 22:39 | REPVR ---
EXAM: CT Head Without Contrast EXAM DATE/TIME: 06/08/2019 9:18 PM CLINICAL HISTORY: 79 years old, male; Syncope and collapse TECHNIQUE: Imaging protocol: Computed tomography images of the head without contrast. Radiation optimization: All CT scans at this facility use at least one of these dose optimization techniques: automated exposure control; mA and/or kV adjustment per patient size (includes targeted exams where dose is matched to clinical indication); or iterative reconstruction. COMPARISON: CT Head without contrast 05/20/2019 7:01 PM FINDINGS: Brain: Patchy areas of hypoattenuation in the periventricular and subcortical white matter, consistent with chronic small vessel ischemic disease. No CT evidence of acute intracranial hemorrhage or acute territorial infarction. No significant mass effect or midline shift. Basal cisterns patent. Ventricles: Prominence of the cortical sulci, cisterns and ventricular system, consistent with cerebral and cerebellar volume loss. Bones/joints: No acute osseous abnormality. Sinuses: Mild ethmoid mucosal thickening. Mastoid air cells: Grossly unremarkable. Soft tissues: Grossly unremarkable. Vasculature: Calcific atherosclerotic disease in the cavernous internal carotid arteries, as well as the vertebro-basilar system. IMPRESSION: 1. No CT evidence of acute intracranial pathology. 2. Additional findings, as above. Electronically signed by: Pascual Lee On 06/08/2019 22:38:43 PM
--- NOTE | 2019-06-08 22:40 | REPVR ---
EXAM: CT Cervical Spine Without Contrast EXAM DATE/TIME: 06/08/2019 9:18 PM CLINICAL HISTORY: 79 years old, male; Injury or trauma; Fall; Initial encounter; Blunt trauma; Injury date: Today; Additional info: Syncope TECHNIQUE: Imaging protocol: Computed tomography images of the cervical spine without contrast. Coronal and sagittal reformatted images were created and reviewed. Radiation optimization: All CT scans at this facility use at least one of these dose optimization techniques: automated exposure control; mA and/or kV adjustment per patient size (includes targeted exams where dose is matched to clinical indication); or iterative reconstruction. COMPARISON: CT Spine,cervical w/o contrast 05/20/2019 7:01 PM FINDINGS: Vertebrae: Normal cervical lordosis. Alignment anatomic. No CT evidence of acute fracture, dislocation or subluxation. Vertebral body heights maintained. Discs/Spinal canal/Neural foramina: Mild multilevel degenerative changes, characterized by disc space narrowing, osteophytosis and uncovertebral and facet joint hypertrophy. Mild multilevel spinal canal and neural foraminal narrowing. Soft tissues: Grossly unremarkable. Lungs: Grossly unremarkable. IMPRESSION: 1. No CT evidence of acute cervical spine traumatic injury. 2. Additional findings, as above. Electronically signed by: Pascual Lee On 06/08/2019 22:40:18 PM
[2019-06-08] MEDS ORDERED: NORCO, ANEXSIA 5/325MG TABLET (HYDROcodone/ACETAMINOPHEN) PO ONE (23:00)
--- NOTE | 2019-06-08 23:16 | HPEPDOC ---
General Date of Admission 06/08/2019 Date of Service: Jun 08, 2019 Attending Physician: MYAH HAMMOND MD Chief Complaint The patient is a 79-year-old male admitted with a reason for visit of Syncope. History of Present Illness Player is a 79 year old male, past medical history significant for hypertension, CAD, S/P PTCA, valvular heart disease, status post bovine valve replacement, type 2 diabetes mellitus, morbid obesity, presenting to the emergency room status post fall. Patient states he was walking his dog when he suddenly fell and passed out. He is unsure all for how long he was unconscious, episode was unwitnessed. Patient has had significant for history, but this is the first time he had syncope with fall. Family at bedside reports patient has been dizzy. Also for about 2 months now. Patient denied any chest pain, shortness of breath, weakness, worse than his baseline with episode. He denied chills or fever. In the emergency room her pressure was positive for orthostasis with supine systolic blood pressure of 153 and standing systolic blood pressure of 124. He was treated with 1 L IV bolus, but still was significantly weak at time of assessment. Patient also did sustain a huge left elbow laceration, which was repaired in the emergency room. Home Medications Scheduled Bimatoprost (Lumigan) 0.01% 2.5ML Drops, 1 DROP OU QHS, (Reported) Bisoprolol Fumarate (Bisoprolol Fumarate) 10 Mg Tablet, 10 MG PO DAILY, (Reported) Chlorhexidine Gluconate (Chlorhexidine Gluconate) 473 Ml Mouthwash, 15 ML SSP QID, (Reported) Famotidine (Famotidine) 40 Mg Tab, 40 MG PO DAILY, (Reported) Fostamatinib Disodium (Tavalisse) 150 Mg Tab, 150 MG PO BID Furosemide (Furosemide) 20 Mg Tablet, 20 MG PO TID, (Reported) Insulin Glargine,Hum.rec.anlog (Lantus Solostar) 100 Unit/1 Ml Insuln.pen, 40 UNITS SC QHS, (Reported) Lisinopril (Lisinopril) 40 Mg Tablet, 20 MG PO DAILY, (Reported) Magnesium Chloride (Mag64) 64 Mg Tablet.dr, 64 MG PO DAILY, (Reported) Pantoprazole Sodium (Pantoprazole Sodium) 40 Mg Tab, 40 MG PO Q2D, (Reported) TAKES AT DINNERTIME Potassium Chloride (Potassium Chloride) 10 Meq Tablet.er, 10 MEQ PO DAILY, (Reported) Pravastatin Sodium (Pravastatin Sodium) 40 Mg Tab, 20 MG PO DAILY, (Reported) Scheduled PRN Hydrocodone/Acetaminophen (Perkins 5-325 Tablet) 1 Each Tablet, 1 TAB PO BID PRN for PAIN, (Reported) Allergies Coded Allergies: procaine (Verified Allergy, Severe, difficulty breathing, 05/20/19) Penicillins (Verified Allergy, Intermediate, swelling, 02/13/19) Past Medical History Medical History Hypertension Hyperlipidemia Thrombocytopenia Diabetes mellitus type 2. Colon cancer. CAD S/P PCI PAD(CAROTIS STENOSIS) Aortic stenosis. Chronic bronchitis Congestive heart failure Chronic kidney disease stage III Morbid obesity Nicotine dependence Surgical History Carpal tunnel release Left shoulder surgery Rotator cuff repair Appendectomy. Bovine valve replacement. Left carotid endarterectomy. Coronary angiogram with stenting Family History Father: Gastric cancer, hypertension Mother: Cardiovascular disease, hypertension, glaucoma Siblings: Gastric cancer Social History Patient smokes one pack per day, denies alcohol or polysubstance abuse A-FIB/CHADSVASC A-FIB History Current/History of A-Fib/PAF?: No Current PO Anticoag Therapy: No Review of Systems Other systems A 10 point pertinent review of systems was completed, negative except as stated in the history of presenting illness. Physical Examination Other physical findings GENERAL: Obese male, weak, in no acute distress SKIN : Warm, bilateral lower extremity rubor, left knee abrasion, left elbow dressing HEENT: Atraumatic, normocephalic, PERRL, moist mucous membrane CARDIOVASCULAR: Regular rate and rhythm, S1S2, no JVD, bilateral lower extremity 2+ pitting edema, distal pulses + palpable RESP: expiratory. Wheezing and cough, no accessory muscle use noted ABDOMEN: BS+ non distended non tender MS: no joint deformities NEURO: Alert and oriented x 3, CN2-12 grossly intact PSYCH: no anxiety or agitation, appropriate mood and affect. Vital Signs Vital Signs Date Time Temp Pulse Resp B/P (MAP) Pulse Ox O2 Delivery O2 Flow Rate FiO2 06/08/19 23:08 18 06/08/19 22:14 84 155/74 (101) 06/08/19 20:21 98.6 97 Room Air Laboratory Data Labs 24H Laboratory Tests 2 06/08/19 20:21: Nucleated Red Blood Cells % (auto) 0.0, Neutrophils 62, Lymphocytes (Manual) 30, Monocytes (Manual) 7, Eosinophils (Manual) 1, Platelet Estimate DECREASED, Red Blood Cell Morphology NORMAL, Prothrombin Time 13.0, Prothromb Time International Ratio 1.01, Activated Partial Thromboplast Time 30.9, Anion Gap 9, Glomerular Filtration Rate 45.9, Blood Urea Nitrogen 14, Creatinine 1.56H, Sodium Level 139, Potassium Level 3.6, Chloride Level 98, Carbon Dioxide Level 32, Calcium Level 8.3L, Total Creatine Kinase 89, Creatine Kinase MB 1.2, Creatine Kinase MB Relative Index 1.35, Troponin I < 0.02, Thyroid Stimulating Hormone (TSH) 1.150, Ethyl Alcohol Level < 0.003 06/08/19 20:31: POC Glucose (Misc Panel) 308H, POC Sodium (Misc Panel) 137, POC Potassium (Misc Panel) 3.0L, POC Chloride (Misc Panel) 92L, POC Total CO2 (Misc Panel) 30.0H, POC Blood Urea Nitrogen (Misc Panel 13, POC Ionized Calcium (Misc Panel) 4.3L, POC Creatinine (Misc Panel) 1.4H, POC Hematocrit (Misc Panel) 37.0L CBC/BMP Laboratory Tests 06/08/19 20:21 Red Blood Count 4.09 L, Mean Corpuscular Volume 94.1, Mean Corpuscular Hemoglob in 30.1, Mean Corpuscular Hemoglobin Concent 31.9 L, Red Cell Distribution Width 13.8, Calcium Level 8.3 L, Total Creatine Kinase 89 Assessment/Plan Syncope and collapse -Cardiac biomarker troponin negative for acute myonecrosis -CT brain negative for acute intracranial process. -Chest x-ray ordered, pending completion, follow findings -Orthostatic blood pressure, positive in the emergency room -Place on fall precautions -Hold Lasix, fluid resuscitation for now till orthostasis. blood pressure resolved -Check carotid Dopplers, 2-D echocardiogram -Bedside telemetry to exclude malignant arrhythmias -Hold blood pressure medications with parameters for administration -Consult cardiology given his cardiac history for input and recommendations Type 2 diabetes mellitus -Caloric controlled diet -Finger stick checks prior to meals and at bedtime -Continue home dosage basal insulin, -Add sliding scale with coverage per protocol Frequent falls -PT, OT evaluation for rehabilitation recommendations -Fall precautions Left Elbow Laceration -treated in the ED -wound dressing per wound nurse recommendations Chronic COPD -scheduled bronchodilator therapy Renal insufficiency -Increased creatinine levels with decreased GFR -Hold lisinopril and Lasix -Fluid resuscitation for now ITP -continue Fostamatinib -watch for signs and symptoms of bleeding -monitor platelets DVT prophylaxis -Lovenox daily Advanced care directive -CODE STATUS is DNR/DNI Plan / VTE VTE Prophylaxis Ordered?: Yes VTE Exclusion Pharmacological: Thrombocytopenia JULIAN HINDSP Jun 08, 2019 23:16
[2019-06-08] MEDS ORDERED: NORC1TAB7 PO (23:31)
[2019-06-08] MEDS ORDERED: PERI12LIQ SSP (23:36)
[2019-06-08] MEDS ORDERED: MAGN64TASA PO (23:36)
[2019-06-08] MEDS ORDERED: FURO20TA2 PO (23:36)
[2019-06-08] MEDS ORDERED: POTA1TAB23 PO (23:36)
[2019-06-08] MEDS ORDERED: LANTINJ4 SC (23:36)
[2019-06-08] MEDS ORDERED: LISI40TA PO (23:38)
[2019-06-09] MEDS ORDERED: DEXTROSE 50% 50 ML SYRINGE IV PRN (00:45)
[2019-06-09] MEDS ORDERED: GLUCAGON FOR INJ 1 MG VIAL (J1610) SC PRN (00:45)
[2019-06-09] MEDS ORDERED: GLUCOSE 4 GM CHEW TABLET PO PRN (00:45)
--- NOTE | 2019-06-09 00:52 | REPVR ---
EXAM: XR Chest, 1 View EXAM DATE/TIME: 06/09/2019 12:20 AM CLINICAL HISTORY: 79 years old, male; Shortness of breath; Additional info: Syncope TECHNIQUE: Imaging protocol: XR of the chest, 1 view. COMPARISON: CR PORTABLE CHEST X-RAY 05/20/2019 7:13 PM FINDINGS: Lungs: Unremarkable. No consolidation. Pleural space: Unremarkable. No pleural effusion. No pneumothorax. Heart/Mediastinum: No cardiomegaly. Evidence of open heart surgery. Bones/joints: No acute osseous abnormality. Mild degenerative changes of the spine and shoulders. IMPRESSION: No acute radiographic findings. Electronically signed by: Pascual Lee On 06/09/2019 00:52:02 AM
[2019-06-09] MEDS: NORCO, ANEXSIA 5/325MG TABLET (HYDROcodone/ACETAMINOPHEN) PO PRN ×2 (01:51→12:10)
--- NOTE | 2019-06-09 02:01 | REPVR ---
EXAM: US Duplex Bilateral Extracranial Arteries EXAM DATE/TIME: 06/09/2019 1:23 AM CLINICAL HISTORY: 79 years old, male; Syncope and collapse; Prior surgery; Surgery date: 6+ months; Surgery type: Lt endartectomy TECHNIQUE: Imaging protocol: Real-time Duplex ultrasound scan of the Bilateral carotid and vertebral arteries combining menjivar scale, color Doppler and spectral waveform analysis. COMPARISON: CT Head without contrast 06/08/2019 9:17 PM FINDINGS: Right common carotid artery: Unremarkable. No occlusion or stenosis. Waveforms are normal. Right internal carotid artery: Moderate amount of plaque in the carotid bulb with elevated peak systolic velocity, suggesting greater than 70% stenosis. No occlusion. Right ICA/CCA ratio: Within normal limits. Right external carotid artery: No stenosis in the origin. Right vertebral artery: Unremarkable. Antegrade flow Left common carotid artery: Not interrogated due to patient discomfort. Left internal carotid artery: Not interrogated due to patient discomfort. Left external carotid artery: Not interrogated due to patient discomfort. Left vertebral artery: Not interrogated due to patient discomfort. . IMPRESSION: 1. Incomplete examination due to patient discomfort. The left extracranial arterial system was not interrogated. 2. Moderate amount of plaque in the right carotid bulb with elevated peak systolic velocity, suggesting greater than 70% stenosis. COMMENT: Carotid Stenosis Reference using SRU criteria: Mild: less than 50% stenosis. ICA PSV is less than 125 cm/second and plaque or intimal thickening is visible. Moderate: 50-69% stenosis. ICA PSV is 125 to 230 cm/second and plaque is visible. Severe: 70-94% stenosis. ICA PSV is more than 230 cm/second and visible plaque and lumen narrowing are seen. Near occlusion: 95-99% stenosis. ICA PSV is variable and significant plaque and luminal narrowing are seen. Occluded: 100% stenosis. No flow identified. Electronically signed by: Pascual Lee On 06/09/2019 02:01:03 AM
[2019-06-09] MEDS: ACETAMINOPHEN TAB 650MG DOSE (2X325MG) PO PRN (06:05)
[2019-06-09] MEDS: IPRATROPIUM 0.5MG/ALBUTEROL 2.5MG INH SOL UD 3ML (DUONEB)(J7620) NEB SCH ×3 (07:21→20:00)
[2019-06-09] MEDS ORDERED: ENOXAPARIN 40 MG/0.4 ML SYRINGE (J1650) SC SCH (09:00)
[2019-06-09] MEDS: PRAVASTATIN 20 MG TAB PO SCH (09:12)
[2019-06-09] MEDS: FAMOTIDINE 20 MG TAB PO SCH (09:12)
[2019-06-09] MEDS: POTASSIUM CHLORIDE 10 MEQ SR TABLET PO SCH (09:12)
[2019-06-09] MEDS: HumaLOG INSULIN (NovoLOG) PER UNIT SC SCH ×4 (09:12→21:00)
[2019-06-09] MEDS: BISOPROLOL FUMARATE 10 MG TAB PO SCH (11:32)
[2019-06-09] MEDS: MAGNESIUM CHLORIDE 64 MG TABCR (SLO MAG) PO SCH (12:11)
[2019-06-09 13:10] VITALS: BP 130/58
[2019-06-09] MEDS: TAVALISSE PO SCH ×2 (14:30→21:00)
[2019-06-09] MEDS: MIDODRINE 5 MG TAB PO SCH ×2 (14:30→16:28)
[2019-06-09] MEDS: GABAPENTIN 100 MG CAP PO SCH ×2 (14:30→21:00)
[2019-06-09 16:00] VITALS: BP 132/70
[2019-06-09 18:00] VITALS: BP 140/60
--- NOTE | 2019-06-09 19:13 | ECGEPIP ---
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
[2019-06-09 20:00] VITALS: BP 140/70
[2019-06-09] MEDS ORDERED: LEVEMIR (INSULIN DETEMIR) 1 UNITS/0.01ML SC SCH (21:00)
[2019-06-09] MEDS: DULoxetine 30 MG CAP (CYMBALTA) PO SCH (21:00)
--- NOTE | 2019-06-09 21:32 | IPN ---
DATE: 06/09/2019 Augie was seen in the emergency room (ER). He has very a complicated medical history. He was admitted for generalized weakness. He says his legs can't hold him up, when he tries to stand; he finds himself on the floor. He has not actually had ying syncope. He just feels like he is very weak. He has documented orthostatic hypotension in the emergency room. He has extensive past records. These were review as part of his evaluation. He is a patient of [facility]. He was last seen there 03/20/2019. At that time, he was describing his profound weakness and exhaustion, could only walk 15 to 20 feet because of leg weakness this May; this was contributed to prednisone he was taking for idiopathic thrombocytopenia purpura (ITP), was on high dose steroids that were weaned down, he had edema that was being treated with furosemide, but then led to prerenal problems. He was having a documented fall of blood pressure. Those records showed a nuclear stress test 08/08, ejection fraction of 76%, normal imaging. Holter monitor on 12/05, dramatic increase of low grade ventricular ectopic activity noted. Echocardiogram 09/04, ejection fraction 65%, well seated normally functioning aortic bioprosthesis, grade 1 diastolic dysfunction. He has a history of coronary artery disease, has had stenting of the right coronary arteries with two stents 06/23, cardiac catheter 11/27 showed patent stents, aortic valve replacement 11/27 with bioprosthetic #25 freestyle aortic bioprosthesis. He is followed by Dr. Carmen Lamb at [facility] oncology. He was diagnosed with a T1N0M0 colon carcinoma 2018 after one resection with right hemicolectomy. CT scan of the chest showed multiple small pulmonary nodules. Showed weekly increased uptake on PET scan 01/08 and these were being followed by Dr. Lamb. She was treating his idiopathic thrombocytopenia purpura (ITP) with steroids. He has had a number of steroid side-effects including myopathies, skin atrophy with skin tears, uncontrolled diabetes, the last hemoglobin was 11.8% (before diabetes, his diabetes was under reasonable control, hemoglobin was between 7 and 8%). 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 This had developed about 6 months ago as his vision became worse. He apparently has cataract extraction planned. In any case, he has been weaned off his steroids with the final wean over seven months having been completed at the end of April. He is now on Tavalisse at 150 mg twice a day. These visual hallucinations have no associated cognitive distortion - he sees things with horses in the exam room that he knows are not there. 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 He was being referred to neurology for these, has appointment with Dr. Santamaria next week. The patient is also being seen by Dr. Yared Sanchez for wound care. He has lower extremity skin tears that are being treated through the wound center. When he fell in this admission, he developed a large skin tear of his left elbow. PAST MEDICAL HISTORY INCLUDES: 1. Hypertensive heart disease. 2. Diastolic congestive heart failure (CHF). 3. Gastroesophageal reflux disease (GERD). 4. Type 2 diabetes under good control prior to steroids, but most recent hemoglobin C 11.3% in December 2018. He has an elevated carcinoembryonic antigen (CEA) at 3.9, 11/06, it was 1.3, 09/06 5. He has a history of lumbar spinal stenosis. 6. Hyperlipidemia. PAST SURGICAL HISTORY INCLUDES: PTCA/stenting of the right coronary artery (RCA) times two 06/23. He had a valve replacement 11/27, appendectomy, carpal tunnel release, left shoulder surgery, carotid endarterectomy 2007, right hemicolectomy 10/08. He was hospitalized with a gastrointestinal (GI) bleed in 07/07. FAMILY HISTORY: Father of cardiac disease, as did the mother. One brother of lung cancer, one of colon cancer. SOCIAL HISTORY: He still smokes a pack per day. No alcohol. He is . is Charline, has an attentive daughter. PHYSICAL EXAMINATION: He looks cushingoid. Vision is poor. He is alert and conversant. I have known him since childhood. He recognized me immediately and had appropriate conversation. Expressed his frustration over his medical problems. HEENT: Unremarkable, except for the cataracts. NECK: Supple. LUNGS: Decreased breath sounds with regular heart rhythm, no murmur. ABDOMEN: Obese, soft, nontender, no masses. He has 1+ peripheral edema. He has dressings over the pretibial areas where he has venous ulcers in the lower legs. His left elbow is dressed, tender to palpate. His left rib cage is tender to palpate. LABORATORY: He had no labs over the first day. He was admitted yesterday, but there were no morning labs ordered. Yesterday, his platelet count was 116. His creatinine was 1.5 (baseline 1.2), potassium is 3.6. IMPRESSION: 1. Syncope. He actually had a syncope. I think he has been having progressive problems with weakness. He does have orthostasis, which contributes to the event. I am concerned about adrenaline insufficiency. He had a slow taper of the steroids, while the patient and his adamantly opposes resuming any steroid therapy, still needs to be considered. Have ordered a baseline cortisol for tomorrow. He was started on midodrine three times a day and we can increase the dose if it helps and will keep an eye on his blood pressure with this. Current diuretics are furosemide 20 mg three times a day, which is currently on hold. I have ordered telemetry. Cardiology consultation at family's request. Will get an echocardiogram while he is here. Last note from [facility]. Indicates that they were anticipating doing another echocardiogram, but the patient was overwhelm by all the doctor visits, etc. So we will get there while he is here in the hospital. 2. Adrenal insufficiency. I have ordered a baseline cortisol. He may need a cortisol stimulation test. 3. Idiopathic thrombocytopenia purpura (ITP). Consulted Dr. Carmen Lamb to see him. We will continue Tavalisse, but I would like her input concerning the best way to manage this, particularly if it looks like he is still adrenally insufficient. 4. Skin tears to the lower legs, left elbow. Dr. Sanchez sees him in the wound care office, I put in a consultation in. 5. Visual hallucinations as noted above. These seem to be manifestation of Vishal Bonnet syndrome reflecting his decrease visual acuity and not a psychiatric problem. Fully aware that what he is seeing does not exist and they have their onset when his vision took a dramatic deterioration this year due to his cataracts. I have consulted neurology and this was going to be done as an outpatient and the patient was supposed to see Dr. Santamaria next week. 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 I think he would be a good candidate for rehabilitation. An ARU consult has been ordered. 7. Diabetes. He has lost control on the steroids. These have been weaned. I have reduced the dose of the detemir insulin. His blood sugar is borderline hypoglycemic this morning. His home dose of detemir and on enforced diabetic diet, I am concerned about hypoglycemia. Detemir dose was reduced to 20 units daily with a sliding scale. 8. Hypertensive heart disease. Monitor his blood pressure on the midodrine. Continue his bisoprolol 10 mg daily. 9. Hyperlipidemia. Continue Pravastatin 40 mg daily. 10. History of gastroesophageal reflux disease (GERD). He is on Protonix and Pepcid, which he will continue. 11. Hypokalemia. He did not have any labs ordered today. I will put in med profile he is prone to hypoglycemia. His hypokalemia is secondary to steroid therapy. 12. Chronic opiate therapies. He is on chronic opiates related to his spinal stenosis. He says they "don't work". They were off after less than hour. I have put a consultation in for palliative care to address his pain issues.
[2019-06-10] VITALS (7 sets, daily range): BP systolic 132–156; BP diastolic 67–85
[2019-06-10] MEDS: NORCO, ANEXSIA 5/325MG TABLET (HYDROcodone/ACETAMINOPHEN) PO PRN ×3 (02:37→19:10)
[2019-06-10 05:14] LABS: HEMATOCRIT 40.5 % (42.0-52.0); HEMOGLOBIN 12.5 g/dl (13.5-17.5); MEAN CORPUSCULAR HEMOGLOBIN 30.9 pg (27.0-33.0); MEAN CORPUSCULAR HGB CONC 30.9 g/dl (32.0-36.5); RED BLOOD COUNT 4.05 10^6/uL (4.30-6.10); WHITE BLOOD COUNT 4.5 10^3/uL (4.0-10.0)
[2019-06-10 05:21] LABS: PLATELET COUNT, AUTOMATED 80 10^3/uL (150-450)
[2019-06-10 05:28] LABS: BLOOD UREA NITROGEN 10 MG/DL (7-18); CALCIUM LEVEL 8.2 MG/DL (8.8-10.2); CARBON DIOXIDE LEVEL 24 MEQ/L (21-32); CHLORIDE LEVEL 106 MEQ/L (98-107); CREATININE FOR GFR 0.95 MG/DL (0.70-1.30); GLOMERULAR FILTRATION RATE > 60.0 (>42); GLUCOSE, FASTING 95 MG/DL (70-100); POTASSIUM SERUM 3.1 MEQ/L (3.5-5.1); SODIUM LEVEL 136 MEQ/L (136-145)
[2019-06-10] MEDS: HumaLOG INSULIN (NovoLOG) PER UNIT SC SCH ×4 (07:30→20:14)
[2019-06-10] MEDS: IPRATROPIUM 0.5MG/ALBUTEROL 2.5MG INH SOL UD 3ML (DUONEB)(J7620) NEB SCH ×3 (08:00→20:00)
[2019-06-10] MEDS ORDERED: SLF 3 ML SYR IV PRN (08:45)
[2019-06-10] MEDS: MAGNESIUM CHLORIDE 64 MG TABCR (SLO MAG) PO SCH (09:59)
[2019-06-10] MEDS: PRAVASTATIN 20 MG TAB PO SCH (10:00)
[2019-06-10] MEDS: FAMOTIDINE 20 MG TAB PO SCH (10:00)
[2019-06-10] MEDS: GABAPENTIN 100 MG CAP PO SCH ×2 (10:00→20:13)
--- NOTE | 2019-06-10 10:00 | IPNPDOC ---
Subjective Date Seen The patient was seen on 06/10/19. Subjective Chief Complaint/HPI weakness Events since last encounter continues with weakness and pain. Started on Cymbalta and Duloxetine for pain management. ARU and palliative care consults pending. Constitutional: Reports: Weakness, Fatigue Pulmonary: Denies: Dyspnea, Cough Cardiovascular: Denies: Chest Pain, Palpitations, Orthopnea, Paroxysmal Noc. Dyspnea, Lt Headedness Gastrointestinal: Denies: Nausea, Vomiting, Abdominal Pain, Diarrhea, Constipation Psych: Reports: Mood Normal; Denies: Depression, Memory Issues Objective Physical Examination General Exam: Positive: Alert, Cooperative, No Acute Distress Chest Exam: Positive: Clear to auscultation, Normal air movement Heart Exam: Positive: Rate Normal, Regular Rhythm, Normal S1, Normal S2; Negative: Murmurs, Rubs Abdomen Exam: Positive: Normal bowel sounds, Soft; Negative: Tenderness, Hepatospenomegaly Extremity Exam: Positive: Normal pulses; Negative: Clubbing, Cyanosis, Edema Skin Exam: Positive: Other skin issue (left elbow dressing taken down. new vaseline dressing applied with telfa to skin tear. Left forearm small abrasion dressed with vaseline gauze and telfa) Assessment /Plan Problems (1) Syncope Status: Acute Problem Specific Plan: Consult Specialist Problem Text: He was started on midodrine three times a day and we can increase the dose if it helps and will keep an eye on his blood pressure with this. Current diuretics are furosemide 20 mg three times a day, which is currently on hold. Continue telemetry. Cardiology consultation at family's request. Will get an echocardiogram while he is here (2) Skin tear of elbow without complication Status: Acute (3) Diabetes mellitus Status: Chronic Problem Text: Continue RISS and Levemir. monitor glucose closely. (4) Thrombocytopenia Status: Acute Problem Text: Consulted Dr. Carmen Lamb to see him. We will continue Tavalisse, but I would like her input concerning the best way to manage this, particularly if it looks like he is still adrenally insufficient. no DVT px given 80K (5) PVD (peripheral vascular disease) Status: Chronic (6) HTN (hypertension) Status: Chronic Plan/VTE VTE Prophylaxis Ordered?: No VTE Exclusion Pharmacological: Thrombocytopenia VS, I&O, 24H, Fishbone Vital Signs/I&O Vital Signs Date Time Temp Pulse Resp B/P (MAP) Pulse Ox O2 Delivery O2 Flow Rate FiO2 06/10/19 08:00 97.1 95 20 142/82 (102) 98 06/09/19 12:34 Room Air I&O- Last 24 Hours up to 6 AM 06/10/19 06:00 Intake Total 0 ml Output Total 0 ml Balance 0 ml Laboratory Data 24H LABS Laboratory Tests 2 06/09/19 13:21: Bedside Glucose (Misc Panel) 82L 06/09/19 18:10: Bedside Glucose (Misc Panel) 62L 06/09/19 18:31: Bedside Glucose (Misc Panel) 67L 06/09/19 19:11: Bedside Glucose (Misc Panel) 145H 06/10/19 05:04: Nucleated Red Blood Cells % (auto) 0.0, Immature Platelet Fraction , Anion Gap 6L, Glomerular Filtration Rate > 60.0, Blood Urea Nitrogen 10, Creatinine 0.95, Sodium Level 136, Potassium Level 3.1L, Chloride Level 106, Carbon Dioxide Level 24, Calcium Level 8.2L 06/10/19 05:38: CBC/BMP Laboratory Tests 06/10/19 05:04 Red Blood Count 4.05 L, Mean Corpuscular Volume 100.0 H, Mean Corpuscular Hemoglobin 30.9, Mean Corpuscular Hemoglobin Concent 30.9 L, Red Cell Distribution Width 13.8, Calcium Level 8.2 L Xenia Alvarado Jun 10, 2019 10:00 Cristi Carroll M.D. Jun 10, 2019 17:18
[2019-06-10] MEDS: POTASSIUM CHLORIDE 10 MEQ SR TABLET PO SCH ×3 (10:01→20:13)
[2019-06-10] MEDS: BISOPROLOL FUMARATE 10 MG TAB PO SCH (10:01)
[2019-06-10] MEDS: MIDODRINE 5 MG TAB PO SCH ×3 (10:02→16:27)
[2019-06-10] MEDS: TAVALISSE PO SCH ×2 (10:02→20:13)
[2019-06-10] MEDS: SLF 3 ML SYR IV SCH ×2 (14:00→20:14)
--- NOTE | 2019-06-10 15:53 | REP ---
Right lower extremity arterial Doppler ultrasound: Right brachial peak systole: 180 mmHg. Right dorsalis pedis peak systole 140 mmHg TAPE EDITOR peak systole: 100 mmHg WING: not performed. 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 TAPE EDITOR peak systole: 160 mmHg. WING: Not performed. 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 monophasic TAPE EDITOR pr 117 monophasic TAPE EDITOR dst 74.3 monophasic QUENTIN dst 34.9 monophasic The there is diffuse atheromatous plaque bilaterally. On the right there is stenosis from the mid to distal SFA and stenosis in the distal TAPE EDITOR. On the left there is stenosis in the distal SFA and stenosis in the proximal TAPE EDITOR. Electronically Signed by Silvio Pelaez MD 06/10/2019 03:44 P
[2019-06-10] MEDS: PANTOPRAZOLE 40MG TAB (PROTONIX) PO SCH (16:27)
[2019-06-10] MEDS: DULoxetine 30 MG CAP (CYMBALTA) PO SCH (20:13)
[2019-06-11 04:00] VITALS: BP 176/77
[2019-06-11] MEDS: SLF 3 ML SYR IV SCH ×3 (04:54→20:35)
[2019-06-11 08:00] VITALS: BP 142/67
[2019-06-11] MEDS: IPRATROPIUM 0.5MG/ALBUTEROL 2.5MG INH SOL UD 3ML (DUONEB)(J7620) NEB SCH ×3 (08:00→19:58)
--- NOTE | 2019-06-11 09:28 | IPNPDOC ---
Subjective Date Seen The patient was seen on 06/11/19. Subjective Chief Complaint/HPI syncope Events since last encounter Patient had aggressive behaviors last evening. notes this has been going for 2-3 months. admits to several months of underlying confusion as well. notes patients falls are at night when she is not home. She works as a linux server administrator/care program resident in evening hours and has no help in the home while she is away. She is concerned for his safety. General: Reports: ROS Unobtainable Objective Physical Examination General Exam: Positive: Alert, Cooperative, No Acute Distress Chest Exam: Positive: Clear to auscultation, Normal air movement Heart Exam: Positive: Rate Normal, Regular Rhythm, Normal S1, Normal S2; Negative: Murmurs, Rubs Abdomen Exam: Positive: Normal bowel sounds, Soft; Negative: Tenderness, Hepatospenomegaly Extremity Exam: Positive: Normal pulses; Negative: Clubbing, Cyanosis, Edema Skin Exam: Positive: Other skin issue (dressing intact) Assessment /Plan Problems (1) Ataxia Status: Chronic Problem Text: 06/11 PT feels NOT safe to dc home, NOT ARU candidate 2 ; patient is adamant to dc home in AM (2) Syncope Status: Acute Problem Specific Plan: Consult Specialist Problem Text: 06/11/19: back down on dosing of midodrine to 2.5 mg po bid He was started on midodrine three times a day and we can increase the dose if it helps and will keep an eye on his blood pressure with this. Current diuretics are furosemide 20 mg three times a day, which is currently on hold. Continue telemetry. Cardiology consultation at family's request. Will get an echocardiogram while he is here (3) Confusion Status: Chronic Response to Treatment: Worse Problem Text: favor 06/11 + risper 0.25 at 1900 aggressive behaviors noted by nursing staff and -worse here, than home will review options for home safety with PFS. 06/11/19 CT head NAD (4) Diabetes mellitus Status: Chronic Problem Text: Continue RISS and Levemir. monitor glucose closely. (5) Thrombocytopenia Status: Acute Problem Text: Consulted Dr. Carmen Lamb to see him. We will continue Tavalisse, but I would like her input concerning the best way to manage this, particularly if it looks like he is still adrenally insufficient. no DVT px given 80K (6) PVD (peripheral vascular disease) Status: Chronic Problem Text: 06/10/19 BLE art US The there is diffuse atheromatous plaque bilaterally. On the right there is stenosis from the mid to distal SFA and stenosis in the distal HEALTHCARE MANAGEMENT CONSULTANT. On the left there is stenosis in the distal SFA and stenosis in the proximal HEALTHCARE MANAGEMENT CONSULTANT. (7) HTN (hypertension) Status: Chronic Plan/VTE VTE Prophylaxis Ordered?: No VTE Exclusion Pharmacological: Thrombocytopenia VS, I&O, 24H, Fishbone Vital Signs/I&O Vital Signs Date Time Temp Pulse Resp B/P (MAP) Pulse Ox O2 Delivery O2 Flow Rate FiO2 06/11/19 08:00 97.3 66 18 142/67 (92) 98 06/09/19 12:34 Room Air I&O- Last 24 Hours up to 6 AM 06/11/19 06:00 Intake Total 480 ml Output Total 200 ml Balance 280 ml Laboratory Data 24H LABS Laboratory Tests 2 06/10/19 11:30: Bedside Glucose (Misc Panel) 143H 06/10/19 19:56: Bedside Glucose (Misc Panel) 278H Xenia Alvarado Jun 11, 2019 09:28 Cristi Carroll M.D. Jun 11, 2019 17:00
[2019-06-11 10:07] LABS: BASO % 0.8 % (0.0-1.0); EOS % 0.8 % (0.0-3.0); HEMATOCRIT 35.8 % (42.0-52.0); HEMOGLOBIN 11.9 g/dl (13.5-17.5); LYMPH # 1.6 10^3/uL (1.5-4.5); LYMPH % 41.5 % (24.0-44.0); MEAN CORPUSCULAR HEMOGLOBIN 31.5 pg (27.0-33.0); MEAN CORPUSCULAR HGB CONC 33.2 g/dl (32.0-36.5); MEAN CORPUSCULAR VOLUME 94.7 fl (80.0-96.0); MONO # 0.4 10^3/uL (0.0-0.8); MONO % 10.7 % (0.0-5.0); NEUTROPHILS # 1.8 10^3/uL (1.8-7.7); NEUTROPHILS % 45.9 % (36.0-66.0); PLATELET COUNT, AUTOMATED 136 10^3/uL (150-450); RED BLOOD COUNT 3.78 10^6/uL (4.30-6.10); WHITE BLOOD COUNT 3.8 10^3/uL (4.0-10.0)
[2019-06-11] MEDS: HumaLOG INSULIN (NovoLOG) PER UNIT SC SCH ×4 (10:16→20:34)
[2019-06-11] MEDS: PRAVASTATIN 20 MG TAB PO SCH (10:16)
[2019-06-11] MEDS: POTASSIUM CHLORIDE 10 MEQ SR TABLET PO SCH (10:17)
[2019-06-11] MEDS: BISOPROLOL FUMARATE 10 MG TAB PO SCH (10:17)
[2019-06-11] MEDS: FAMOTIDINE 20 MG TAB PO SCH (10:18)
[2019-06-11] MEDS: GABAPENTIN 100 MG CAP PO SCH ×2 (10:18→20:35)
[2019-06-11] MEDS: TAVALISSE PO SCH ×2 (10:18→20:35)
[2019-06-11] MEDS: MAGNESIUM CHLORIDE 64 MG TABCR (SLO MAG) PO SCH (10:18)
[2019-06-11 10:36] LABS: ALBUMIN 2.4 GM/DL (3.2-5.2); ALT/SGPT 14 U/L (12-78); BILIRUBIN,TOTAL 0.3 MG/DL (0.2-1.0); BLOOD UREA NITROGEN 13 MG/DL (7-18); CALCIUM LEVEL 8.2 MG/DL (8.8-10.2); CARBON DIOXIDE LEVEL 29 MEQ/L (21-32); CHLORIDE LEVEL 107 MEQ/L (98-107); CREATININE FOR GFR 1.09 MG/DL (0.70-1.30); GLOMERULAR FILTRATION RATE > 60.0 (>42); GLUCOSE, FASTING 218 MG/DL (70-100); POTASSIUM SERUM 3.6 MEQ/L (3.5-5.1); SODIUM LEVEL 140 MEQ/L (136-145); TOTAL PROTEIN 5.8 GM/DL (6.4-8.2)
[2019-06-11] MEDS: NORCO, ANEXSIA 5/325MG TABLET (HYDROcodone/ACETAMINOPHEN) PO PRN (10:43)
--- NOTE | 2019-06-11 11:37 | REPVR ---
EXAM: CT Head Without Contrast EXAM DATE/TIME: 06/11/2019 9:55 AM CLINICAL HISTORY: 79 years old, male; Altered mental status/memory loss; Confusion or disorientation; Additional info: Confusion, change in mental status TECHNIQUE: Imaging protocol: Computed tomography images of the head without contrast. Radiation optimization: All CT scans at this facility use at least one of these dose optimization techniques: automated exposure control; mA and/or kV adjustment per patient size (includes targeted exams where dose is matched to clinical indication); or iterative reconstruction. COMPARISON: CT Head without contrast 06/08/2019 9:17 PM FINDINGS: Brain: Lucencies in the white matter, most suggestive of chronic microvascular ischemic disease, do not appear significantly changed. There is no evidence for large acute cortical infarct. No intracranial hemorrhage or extraaxial collection is identified. There is no significant intracranial mass effect. Ventricles: The ventricles and sulci are stable in configuration, with similar atrophy. Bones/joints: Unremarkable. No acute fracture. Sinuses: Minor chronic mucosal disease involves some ethmoid air cells and the frontal sinuses. Mastoid air cells: Visualized mastoid air cells are well aerated. No mastoid effusion. Soft tissues: Unremarkable. Vasculature: Intracranial atherosclerotic vascular calcifications are again present. IMPRESSION: No CT evidence for acute intracranial abnormality or significant change since 06/08/19. Electronically signed by: Pascual Silva On 06/11/2019 11:37:02 AM
[2019-06-11 12:00] VITALS: BP 140/72
[2019-06-11] MEDS: MIDODRINE 2.5 MG TAB PO SCH ×2 (12:15→15:02)
[2019-06-11 16:00] VITALS: BP 133/65
[2019-06-11] MEDS ORDERED: risperiDONE 0.25 MG TAB PO SCH (19:00)
[2019-06-11 20:00] VITALS: BP 160/74
[2019-06-11] MEDS: DULoxetine 30 MG CAP (CYMBALTA) PO SCH (20:35)
[2019-06-11 23:59] VITALS: BP 172/86
[2019-06-12] VITALS (7 sets, daily range): BP systolic 135–183; BP diastolic 62–90
[2019-06-12] MEDS: NORCO, ANEXSIA 5/325MG TABLET (HYDROcodone/ACETAMINOPHEN) PO PRN ×2 (02:28→16:39)
[2019-06-12] MEDS: SLF 3 ML SYR IV SCH ×3 (05:53→20:35)
[2019-06-12 06:11] LABS: HEMATOCRIT 32.3 % (42.0-52.0); HEMOGLOBIN 10.5 g/dl (13.5-17.5); MEAN CORPUSCULAR HEMOGLOBIN 29.8 pg (27.0-33.0); MEAN CORPUSCULAR HGB CONC 32.5 g/dl (32.0-36.5); MEAN CORPUSCULAR VOLUME 91.8 fl (80.0-96.0); PLATELET COUNT, AUTOMATED 133 10^3/uL (150-450); RED BLOOD COUNT 3.52 10^6/uL (4.30-6.10); WHITE BLOOD COUNT 4.6 10^3/uL (4.0-10.0)
[2019-06-12 06:31] LABS: BLOOD UREA NITROGEN 11 MG/DL (7-18); CALCIUM LEVEL 8.5 MG/DL (8.8-10.2); CARBON DIOXIDE LEVEL 28 MEQ/L (21-32); CHLORIDE LEVEL 107 MEQ/L (98-107); GLOMERULAR FILTRATION RATE > 60.0 (>42); GLUCOSE, FASTING 213 MG/DL (70-100); POTASSIUM SERUM 3.6 MEQ/L (3.5-5.1); SODIUM LEVEL 141 MEQ/L (136-145)
[2019-06-12] MEDS: IPRATROPIUM 0.5MG/ALBUTEROL 2.5MG INH SOL UD 3ML (DUONEB)(J7620) NEB SCH ×3 (07:15→20:00)
[2019-06-12] MEDS: HumaLOG INSULIN (NovoLOG) PER UNIT SC SCH ×4 (07:30→20:36)
[2019-06-12] MEDS: MIDODRINE 2.5 MG TAB PO SCH ×3 (08:00→16:00)
[2019-06-12] MEDS: FAMOTIDINE 20 MG TAB PO SCH (08:54)
[2019-06-12] MEDS: POTASSIUM CHLORIDE 10 MEQ SR TABLET PO SCH (08:54)
[2019-06-12] MEDS: PRAVASTATIN 20 MG TAB PO SCH (08:54)
[2019-06-12] MEDS: MAGNESIUM CHLORIDE 64 MG TABCR (SLO MAG) PO SCH (08:54)
[2019-06-12] MEDS: GABAPENTIN 100 MG CAP PO SCH ×2 (08:54→20:33)
--- NOTE | 2019-06-12 08:54 | IPNPDOC ---
Subjective Date Seen The patient was seen on 06/12/19. Subjective Chief Complaint/HPI syncope Events since last encounter Improved sleep last nigh with addition of risperidone. Family at bedside. Concerns expressed over patient requesting to go home and being alone with recent behaviors. Family agreeable to providing caregivers, and home health. Will discuss with PFS. Family requesting neurology eval for myalgias, neuropathic pain and mental status changes. Dr. Robertson to see patient today. planned wound care eval today with Dr. Sanchez. Patient willing to remain in hospital for specialty eval and treatment. Constitutional: Denies: Chills, Fever, Night Sweats Cardiovascular: Denies: Chest Pain, Palpitations, Orthopnea, Paroxysmal Noc. Dyspnea, Lt Headedness Gastrointestinal: Denies: Nausea, Vomiting, Abdominal Pain, Diarrhea, Constipat ion Genitourinary: Denies: Dysuria, Frequency, Incontinence, Retention Neurological: Reports: Weakness, Incoordination, Confusion Objective Physical Examination General Exam: Positive: Alert, Cooperative, No Acute Distress Chest Exam: Positive: Clear to auscultation, Normal air movement Heart Exam: Positive: Rate Normal, Regular Rhythm, Normal S1, Normal S2; Negative: Murmurs, Rubs Abdomen Exam: Positive: Normal bowel sounds, Soft; Negative: Tenderness, Hepatospenomegaly Extremity Exam: Positive: Normal pulses; Negative: Clubbing, Cyanosis, Edema Skin Exam: Positive: Other skin issue (dressing intact) Assessment /Plan Problems (1) Ataxia Status: Chronic Problem Text: 06/12/19: patient and family discussion held. Willing to stay for rehab needs and specialty eval for now. PFS to see patient 06/11 PT feels NOT safe to dc home, NOT ARU candidate 2 ; patient is adamant to dc home in AM (2) Syncope Status: Acute Problem Specific Plan: Consult Specialist Problem Text: 06/11/19: back down on dosing of midodrine to 2.5 mg po bid He was started on midodrine three times a day and we can increase the dose if it helps and will keep an eye on his blood pressure with this. Current diuretics are furosemide 20 mg three times a day, which is currently on hold. Continue telemetry. Cardiology consultation at family's request. Will get an echocardiogram while he is here (3) Confusion Status: Chronic Response to Treatment: Worse Problem Text: favor 06/11 + risper 0.25 at 1900 aggressive behaviors noted by nursing staff and -worse here, than home will review options for home safety with PFS. 06/11/19 CT head NAD (4) Diabetes mellitus Status: Chronic Problem Text: Continue RISS and Levemir. monitor glucose closely. (5) Thrombocytopenia Status: Acute Problem Text: Consulted Dr. Carmen Lamb to see him. We will continue Tavalisse, but I would like her input concerning the best way to manage this, particularly if it looks like he is still adrenally insufficient. no DVT px given 80K (6) PVD (peripheral vascular disease) Status: Chronic Problem Text: 06/10/19 BLE art US The there is diffuse atheromatous plaque bilaterally. On the right there is stenosis from the mid to distal SFA and stenosis in the distal ANIMAL PHYSIOLOGY TEACHER. On the left there is stenosis in the distal SFA and stenosis in the proximal ANIMAL PHYSIOLOGY TEACHER. (7) HTN (hypertension) Status: Chronic Plan/VTE VTE Prophylaxis Ordered?: No VTE Exclusion Pharmacological: Thrombocytopenia VS, I&O, 24H, Fishbone Vital Signs/I&O Vital Signs Date Time Temp Pulse Resp B/P (MAP) Pulse Ox O2 Delivery O2 Flow Rate FiO2 06/12/19 07:40 96.7 65 20 135/62 (86) 97 06/09/19 12:34 Room Air I&O- Last 24 Hours up to 6 AM 06/12/19 06:00 Intake Total 840 ml Output Total 0 ml Balance 840 ml Laboratory Data 24H LABS Laboratory Tests 2 06/11/19 09:39: Immature Granulocyte % (Auto) 0.3, White Blood Count 3.8L, Red Blood Count 3.78L, Hemoglobin 11.9L, Hematocrit 35.8L, Mean Corpuscular Volume 94.7, Mean Corpuscular Hemoglobin 31.5, Mean Corpuscular Hemoglobin Concent 33.2, Red Cell Distribution Width 13.7, Platelet Count 136L, Neutrophils (%) (Auto) 45.9, Lymphocytes (%) (Auto) 41.5, Monocytes (%) (Auto) 10.7H, Eosinophils (%) (Auto) 0.8, Basophils (%) (Auto) 0.8, Neutrophils # (Auto) 1.8, Lymphocytes # (Auto) 1.6, Monocytes # (Auto) 0.4, Eosinophils # (Auto) 0.0, Basophils # (Auto) 0.0, Nucleated Red Blood Cells % (auto) 0.0, Anion Gap 4L, Glomerular Filtration Rate > 60.0, Blood Urea Nitrogen 13, Creatinine 1.09, Sodium Level 140, Potassium Level 3.6, Chloride Level 107, Carbon Dioxide Level 29, Calcium Level 8.2L, Aspartate Amino Transf (AST/SGOT) 19, Alanine Aminotransferase (ALT/SGPT) 14, Alkaline Phosphatase 116, Total Bilirubin 0.3, Total Protein 5.8L, Albumin 2.4L, Albumin/Globulin Ratio 0.71L 06/11/19 11:33: Bedside Glucose (Misc Panel) 229H 06/11/19 16:19: Bedside Glucose (Misc Panel) 145H 06/11/19 20:32: Bedside Glucose (Misc Panel) 277H 06/12/19 05:44: Nucleated Red Blood Cells % (auto) 0.0, Anion Gap 6L, Glomerular Filtration Rate > 60.0, Blood Urea Nitrogen 11, Creatinine 1.00, Sodium Level 141, Potassium Level 3.6, Chloride Level 107, Carbon Dioxide Level 28, Calcium Level 8.5L CBC/BMP Laboratory Tests 06/11/19 09:39 Red Blood Count 3.78 L, Mean Corpuscular Volume 94.7, Mean Corpuscular Hemoglobin 31.5, Mean Corpuscular Hemoglobin Concent 33.2, Red Cell Distribution Width 13.7, Neutrophils (%) (Auto) 45.9, Lymphocytes (%) (Auto) 41.5, Monocytes (%) (Auto) 10.7 H, Eosinophils (%) (Auto) 0.8, Basophils (%) (Auto) 0.8, Neutrophils # (Auto) 1.8, Lymphocytes # (Auto) 1.6, Monocytes # (Auto) 0.4, Eosinophils # (Auto) 0.0, Basophils # (Auto) 0.0, Calcium Level 8.2 L, Aspartate Amino Transf (AST/SGOT) 19, Alanine Aminotransferase (ALT/SGPT) 14, Alkaline Phosphatase 116, Total Bilirubin 0.3, Total Protein 5.8 L, Albumin 2.4 L 06/12/19 05:44 Red Blood Count 3.52 L, Mean Corpuscular Volume 91.8, Mean Corpuscular Hemoglo bin 29.8, Mean Corpuscular Hemoglobin Concent 32.5, Red Cell Distribution Width 13.6, Calcium Level 8.5 L Xenia Alvarado [facility] Jun 12, 2019 08:54
[2019-06-12] MEDS: TAVALISSE PO SCH ×2 (08:55→20:33)
[2019-06-12] MEDS: BISOPROLOL FUMARATE 10 MG TAB PO SCH (12:15)
[2019-06-12 14:17] LABS: HEMOGLOBIN A1c 9.4 %
[2019-06-12] MEDS: SANTYL OINT 30GM TOP SCH (16:38)
[2019-06-12] MEDS: PANTOPRAZOLE 40MG TAB (PROTONIX) PO SCH (17:39)
[2019-06-12] MEDS: risperiDONE 0.25 MG TAB PO SCH (18:27)
[2019-06-12] MEDS: DULoxetine 30 MG CAP (CYMBALTA) PO SCH (20:32)
[2019-06-13] VITALS (9 sets, daily range): BP systolic 135–213; BP diastolic 80–105
[2019-06-13] MEDS: NORCO, ANEXSIA 5/325MG TABLET (HYDROcodone/ACETAMINOPHEN) PO PRN ×3 (00:14→23:07)
[2019-06-13] MEDS: SLF 3 ML SYR IV SCH ×3 (05:35→21:52)
[2019-06-13 05:49] LABS: HEMATOCRIT 37.6 % (42.0-52.0); HEMOGLOBIN 12.2 g/dl (13.5-17.5); MEAN CORPUSCULAR HEMOGLOBIN 30.5 pg (27.0-33.0); MEAN CORPUSCULAR HGB CONC 32.4 g/dl (32.0-36.5); PLATELET COUNT, AUTOMATED 150 10^3/uL (150-450)
[2019-06-13 06:14] LABS: BLOOD UREA NITROGEN 10 MG/DL (7-18); CALCIUM LEVEL 8.6 MG/DL (8.8-10.2); CARBON DIOXIDE LEVEL 28 MEQ/L (21-32); CHLORIDE LEVEL 107 MEQ/L (98-107); CREATININE FOR GFR 1.08 MG/DL (0.70-1.30); GLOMERULAR FILTRATION RATE > 60.0 (>42); GLUCOSE, FASTING 181 MG/DL (70-100); SODIUM LEVEL 141 MEQ/L (136-145)
--- NOTE | 2019-06-13 07:43 | CR ---
DATE OF PROCEDURE: 06/13/2019 REFERRING PHYSICIAN: Dr. Gu. REASON FOR CONSULTATION: Altered mental status. HISTORY OF PRESENT ILLNESS: Augie Samano is a 79-year-old man with history of coronary artery disease and valvular heart disease, type 2 diabetes, obesity who was admitted at [facility] when he suddenly fell and passed out while walking his dog. It is unclear for how long he was unconscious. Episode was unwitnessed. This is his first time passing out. This information was obtained from electronic medical records. The patient himself is confused and thinks that he is at [facility] in [place], [place]. He states that he has had visual hallucinations. He sees people and animals out in the field while he is in his room. He has trouble falling and staying asleep at night. He has noted mild tremor. He denies any trouble with his memory. He states that he has off-and-on headaches. He denies any neck or back pain, dysphagia, dysarthria, diplopia, urinary incontinence. He states that he is at the high school for evaluation for sports. He denies dysphagia, dysarthria, diplopia or urinary incontinence. According to nurses he becomes more confused in the evening and becomes aggressive at times. 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 Stage III kidney disease, congestive heart failure. HOME MEDICATIONS: Bisoprolol 10 mg by mouth daily, Pepcid 40 mg by mouth daily, tavalisse 150 mg by mouth twice a day, Lasix 20 mg by mouth three times a day, Insulin lentis 40 units subcutaneous daily, lisinopril 20 mg by mouth daily, magnesium chloride 74 mg by mouth daily, Protonix 40 mg by mouth twice a day, potassium chloride 10 mEq by mouth, pravastatin 20 mg by mouth daily ALLERGIES: Penicillin, procaine. SOCIAL HISTORY: He smokes less than one pack per day. He denies alcohol or illicit drugs. FAMILY HISTORY: Father had gastric carcinoma. Mother with history of hypertension and cardiovascular disease. REVIEW OF SYSTEMS: All systems were reviewed with the patient and found to be noncontributory except as mentioned history present illness. PHYSICAL EXAMINATION: Temperature 98.6, pulse 84, respiratory 18, blood pressure 155/74, heart regular rate and rhythm. Lungs: Clear to auscultation. Abdomen: Soft, nontender, nondistended. No pedal edema. Musculoskeletal no abnormalities. No rash. No signs of meningeal irritation. He has mild postural tremor of both hands. Gait is unsteady. The patient is awake, alert, oriented to self only. He thinks that he is at high school in [place], [place]. He thinks is 2020. He thinks is . He is unable to do serial sevens. He cannot recall any objects after 5 minutes. Strength is 05/05 in all four extremities. Deep tendon flexes are 1+ in arms and knees and absent at ankles. He has decreased cold pinprick vibration sensation in his feet. Extraocular muscles are intact. No facial weakness. Tongue and uvula are midline. Visual herrera are full to confrontation. His speech is intact in expression and comprehension. ASSESSMENT: 1. Delirium with likely underlying cognitive impairment. 2. Lewy body dementia is a differential diagnosis. PLAN: 1. MRI brain. If he can not do an MRI scan of brain we should do a CT scan of head. 2. Risperdal 0.25 mg by mouth twice a day. 3. Check vitamin B12, vitamin B1, TSH. Consider Aricept and Namenda on outpatient basis. MTDD
[2019-06-13] MEDS: MAGNESIUM CHLORIDE 64 MG TABCR (SLO MAG) PO SCH (07:52)
[2019-06-13] MEDS: TAVALISSE PO SCH ×2 (07:52→21:15)
[2019-06-13] MEDS: FAMOTIDINE 20 MG TAB PO SCH (07:53)
[2019-06-13] MEDS: PRAVASTATIN 20 MG TAB PO SCH (07:53)
[2019-06-13] MEDS: POTASSIUM CHLORIDE 10 MEQ SR TABLET PO SCH (07:53)
[2019-06-13] MEDS: risperiDONE 0.25 MG TAB PO SCH ×2 (07:53→21:15)
[2019-06-13] MEDS: GABAPENTIN 100 MG CAP PO SCH ×2 (07:53→21:15)
[2019-06-13] MEDS: HumaLOG INSULIN (NovoLOG) PER UNIT SC SCH ×4 (07:55→21:00)
[2019-06-13] MEDS: SANTYL OINT 30GM TOP SCH (07:55)
[2019-06-13] MEDS: IPRATROPIUM 0.5MG/ALBUTEROL 2.5MG INH SOL UD 3ML (DUONEB)(J7620) NEB SCH ×3 (08:00→20:00)
[2019-06-13] MEDS: BISOPROLOL FUMARATE 10 MG TAB PO SCH (09:39)
[2019-06-13] MEDS ORDERED: PILL CUTTER 1 EACH XX PRN (10:30)
[2019-06-13] MEDS ORDERED: diazePAM 5 MG TAB PO ONE ×2 (11:00→20:00)
--- NOTE | 2019-06-13 12:36 | CR ---
DATE OF CONSULTATION: 06/12/[address] Darell Mensah regarding care of wounds. 79-year-old male recently seen at our wound care service for upper extremity skin tears was noted to have bilateral lower extremity superficial wounds. Patient is a diabetic, poorly controlled with fasting glucoses over 200. The upper extremity skin tears were treated with superficial debridement, foams and the lower extremity wounds were also debrided and treated in a similar manner. ABIs were not obtainable due to a history of diabetes and probable calcification of his distal vessels, and therefore, an arterial ultrasound was ordered. The patient fell as he has done in the past and was recently hospitalized. He is in the hospital now for wounds involving both right and left lower extremities. And a workup for syncopal episodes. The patient is afebrile with a normal white count. These lower extremity wounds are superficial with no deep structures seen. The patient has neuropathy and this may be part of the etiology of his falling. A recent CT scan of the brain did not show any gross abnormalities. Further workup is indicated regarding his abnormal gait and stability. Cardiac workup to rule out any cardiac etiology for his syncopal episodes is also indicated. In terms of the wounds, these should be cleaned with Vashe wound cleanser, wounds covered then with Santyl nickel thick and a foam dressing. Dressing changes can be on an every other day basis. Tubigrip stockings should be utilized bilaterally for his lower extremities. Specifically, a hemoglobin A1c should be ordered as this has been lacking on the chart over the last year. No indication for antibiotic therapy. When the patient stabilizes and is discharged, please notify the wound clinic prior to discharge so that he can be rescheduled for followup. While in the hospital, an arterial ultrasound involving the right and left lower extremities should be obtained for baseline evaluation. MTDD
[2019-06-13] MEDS: LISINOPRIL 20 MG TAB PO SCH ×3 (12:58→19:59)
--- NOTE | 2019-06-13 16:27 | REPVR ---
EXAM: MR Head Without Contrast EXAM DATE/TIME: 06/13/2019 3:45 PM CLINICAL HISTORY: 79 years old, male; Altered mental status/memory loss; Confusion or disorientation; Patient HX: states the patient fell and passed out and has had altered mental status since. Best images possible; Additional info: Ms changes, colon CA TECHNIQUE: Imaging protocol: MR of the head without contrast. COMPARISON: CT Head without contrast 06/11/2019 9:54 AM FINDINGS: Brain: Numerous small foci of restricted diffusion with associated ADC dropout throughout the bilateral cerebral hemispheres, measuring up to 11 x 8 mm in the right occipital lobe. Patchy and confluent areas of increased T2/FLAIR signal intensity in the periventricular and subcortical white matter, consistent with chronic small vessel ischemic disease. No hemorrhage. Ventricles: Prominence of the cortical sulci, cisterns and ventricular system, consistent with cerebral and cerebellar volume loss. Bones/joints: Unremarkable. Soft tissues: Normal. Sinuses: Mild mucosal thickening of the ethmoid air cells and paranasal sinuses. No acute sinusitis. Mastoid air cells: Normal as visualized. No mastoid effusion. Orbits: Unremarkable. IMPRESSION: 1. Multiple small foci of acute ischemia bilaterally. Distribution favors an embolic etiology. 2. Additional findings, as above. Electronically signed by: Pascula Lee On 06/13/2019 16:27:14 PM
--- NOTE | 2019-06-13 17:09 | IPNPDOC ---
Subjective Date Seen The patient was seen on 06/13/19. Subjective Chief Complaint/HPI MS at baseline Constitutional: Denies: Chills, Fever Eyes: Denies: Pain Skin: Denies: Rash, Lesions Pulmonary: Denies: Dyspnea Cardiovascular: Denies: Chest Pain, Palpitations Gastrointestinal: Denies: Nausea Objective Physical Examination General Exam: Positive: Alert, Cooperative, No Acute Distress Chest Exam: Positive: Clear to auscultation, Normal air movement Heart Exam: Positive: Rate Normal, Regular Rhythm, Normal S1, Normal S2; Negative: Murmurs, Rubs Abdomen Exam: Positive: Normal bowel sounds, Soft; Negative: Tenderness, Hepatospenomegaly Extremity Exam: Positive: Normal pulses; Negative: Clubbing, Cyanosis, Edema Skin Exam: Positive: Other skin issue (dressing intact) Assessment /Plan Problems (1) HTN (hypertension) Status: Chronic Problem Text: off HD fur 20 TID 06/13 SBP 220; therefore, restarted lisin 20 QD (2) Cerebrovascular accident, embolic Status: Acute Problem Text: presumptive AF, but none documented since admission on tele 06/13 given embolic CVA; restart tele, + therapeutic LMWH, check B carotid US 06/13/19 MRI brain: Numerous small foci of restricted diffusion with associated ADC dropout throughout the bilateral cerebral hemispheres, measuring up to 11 x 8 mm in the right occipital lobe. (new cw 06/11 CT head) 06/09 TTE performed (no reading yet) (3) Ataxia Status: Chronic Problem Text: 06/12/19: patient and family discussion held. Willing to stay for rehab needs and specialty eval for now. PFS to see patient 06/11 PT feels NOT safe to dc home, NOT ARU candidate 2 ; patient is adamant to dc home in AM (4) Syncope Status: Acute Problem Specific Plan: Consult Specialist Problem Text: as per CVA (5) Confusion Status: Chronic Response to Treatment: Worse Problem Text: favor 06/11 + risper 0.25 at 1900 aggressive behaviors noted by nursing staff and -worse here, than home will review options for home safety with PFS. 06/11/19 CT head NAD (6) Diabetes mellitus Status: Chronic Problem Text: HD glar 40, 05/2019 A1C 9.4 BG mid 100s c solely SSLI (7) Thrombocytopenia Status: Acute Problem Text: remains on fostamatinib (in place of GC) per Dr. Lamb (8) PVD (peripheral vascular disease) Status: Chronic Problem Text: 06/10/19 BLE art US The there is diffuse atheromatous plaque bilaterally. On the right there is stenosis from the mid to distal SFA and stenosis in the distal PROPAGATION MANAGER. On the left there is stenosis in the distal SFA and stenosis in the proximal PROPAGATION MANAGER. Plan/VTE VTE Prophylaxis Ordered?: No VTE Exclusion Pharmacological: Thrombocytopenia VS, I&O, 24H, Fishbone Vital Signs/I&O Vital Signs Date Time Temp Pulse Resp B/P (MAP) Pulse Ox O2 Delivery O2 Flow Rate FiO2 06/13/19 16:00 180/80 (113) 06/13/19 14:00 96.7 65 18 97 06/09/19 12:34 Room Air I&O- Last 24 Hours up to 6 AM 06/13/19 06:00 Intake Total 340 ml Output Total 250 ml Balance 90 ml Laboratory Data 24H LABS Laboratory Tests 2 06/12/19 20:30: Bedside Glucose (Misc Panel) 249H 06/13/19 05:28: Nucleated Red Blood Cells % (auto) 0.0, Anion Gap 6L, Glomerular Filtration Rate > 60.0, Blood Urea Nitrogen 10, Creatinine 1.08, Sodium Level 141, Potassium Level 4.0, Chloride Level 107, Carbon Dioxide Level 28, Calcium Level 8.6L 06/13/19 12:09: Bedside Glucose (Misc Panel) 171H 06/13/19 16:30: Bedside Glucose (Misc Panel) 102 CBC/BMP Laboratory Tests 06/13/19 05:28 Red Blood Count 4.00 L, Mean Corpuscular Volume 94.0, Mean Corpuscular Hemo globin 30.5, Mean Corpuscular Hemoglobin Concent 32.4, Red Cell Distribution Width 13.5, Calcium Level 8.6 L Cristi Carroll M.D. Jun 13, 2019 17:09
--- NOTE | 2019-06-13 19:18 | ECHO ---
DATE OF PROCEDURE: 06/10/2019 REFERRING PHYSICIAN: Dr. Darell Mensah INDICATION: Status post aortic valve replacement. HEIGHT: 180 cm WEIGHT: 107 kg 2D MEASUREMENTS: Ventricular septum: 1.28 cm Posterior wall: 1.24 cm Left ventricle diastole: 5.2 cm Left atrium: 4.1 cm Left atrial volume index: 25 Inferior vena cava: 2.1 cm (greater than 50% respiratory variation; estimated CVP 5-10 mmHg). DOPPLER MEASUREMENTS: Aortic valve velocity: 183 cm/s LVOT velocity: 82.0 cm/s LVOT VTI: 22.0 cm No aortic regurgitation, no aortic stenosis. Mitral E velocity: 84.5 cm/s Mitral A velocity: 152 cm/s Mitral deceleration time: 208 ms No mitral regurgitation. No mitral stenosis. No tricuspid regurgitation. No pulmonic regurgitation. MITRAL ANNULAR TISSUE DOPPLER: E prime septal: 5.46 cm/s E prime lateral: 6.63 cm/s DESCRIPTION: Rhythm was sinus. This was a moderately technically difficult echocardiogram. Very poor sternal window for viewing the aortic arch. No pericardial effusion. CONCLUSIONS: 1. Normal appearing and well seated aortic valve bioprosthesis. No aortic stenosis or regurgitation. 2. Mild concentric left ventricle hypertrophy. Normal regional left ventricular (LV) wall motion and wall thickening. Normal LV systolic function. Left ventricular ejection fraction (LVEF) 70% by visual estimate. Grade 1 LV diastolic dysfunction. Normal left atrial size and left atrial volume index. 3. Moderate mitral annular calcification. No mitral regurgitation or stenosis. 4. Normal right ventricle size and systolic function.
[2019-06-13] MEDS: ENOXAPARIN 100MG/1ML SYRINGE (J1650) SC SCH (19:45)
--- NOTE | 2019-06-13 21:03 | REPVR ---
EXAM: MR Angiogram Head Without Contrast, Arteries EXAM DATE/TIME: 06/13/2019 8:49 PM CLINICAL HISTORY: 79 years old, male; Syncope and collapse; Patient HX: Just had mri, went back to his patient room and collapsed. Best images possible. ; Additional info: Bilateral CVA TECHNIQUE: Imaging protocol: MR angiogram head without contrast. Exam focused on the arteries. COMPARISON: MRI-Brain without Contrast 06/13/2019 3:11 PM FINDINGS: Right internal carotid artery: Mild to moderate multifocal narrowing of the cavernous segment. No hemodynamically significant stenosis. No aneurysm. Right anterior cerebral artery: Unremarkable. No occlusion or significant stenosis. No aneurysm. Right middle cerebral artery: Unremarkable. No occlusion or significant stenosis. No aneurysm. Right posterior cerebral artery: Unremarkable. No occlusion or significant stenosis. No aneurysm. Right vertebral artery: Unremarkable. No occlusion or significant stenosis. No aneurysm. Left internal carotid artery: Mild to moderate multifocal narrowing of the cavernous segment. No hemodynamically significant stenosis. No aneurysm. Left anterior cerebral artery: Unremarkable. No occlusion or significant stenosis. No aneurysm. Left middle cerebral artery: Unremarkable. No occlusion or significant stenosis. No aneurysm. Left posterior cerebral artery: Unremarkable. No occlusion or significant stenosis. No aneurysm. Left vertebral artery: Unremarkable. No occlusion or significant stenosis. No aneurysm. Basilar artery: Unremarkable. No occlusion or significant stenosis. No aneurysm. IMPRESSION: No acute findings. Electronically signed by: Pascual Lee On 06/13/2019 21:03:46 PM
--- NOTE | 2019-06-13 21:06 | REPVR ---
EXAM: MR Angiography Neck Without Contrast EXAM DATE/TIME: 06/13/2019 8:49 PM CLINICAL HISTORY: 79 years old, male; Syncope and collapse; Prior surgery; Surgery date: 6+ months; Surgery type: Carotid endorectomy on the left w clip; Patient HX: Just had mri, went back to his patient room and collapsed. Best images possible. ; Additional info: Bilateral CVA TECHNIQUE: Imaging protocol: Magnetic resonance angiography images of the neck without intravenous contrast. COMPARISON: CT Spine,cervical w/o contrast 06/08/2019 9:17 PM FINDINGS: Right common carotid artery: Unremarkable. No stenosis. No dissection or occlusion. Right internal carotid artery: Unremarkable extracranial segment. No stenosis. No dissection or occlusion. Right external carotid artery: Unremarkable. No stenosis. No dissection or occlusion of the origin. Right vertebral artery: Unremarkable. No stenosis. No dissection or occlusion. Left common carotid artery: Unremarkable. No stenosis. No dissection or occlusion. Left internal carotid artery: Unremarkable extracranial segment. No stenosis. No dissection or occlusion. Left external carotid artery: Unremarkable. No stenosis. No dissection or occlusion of the origin. Left vertebral artery: Unremarkable. No stenosis. No dissection or occlusion. IMPRESSION: No hemodynamically significant stenosis. COMMENT: Reference per NASCET criteria for degree of stenosis: Mild: less than 50% stenosis. Moderate: 50-69% stenosis. Severe: 70-94% stenosis. Near occlusion: 95-99% stenosis. Electronically signed by: Pascual Lee On 06/13/2019 21:06:36 PM
[2019-06-13] MEDS: DULoxetine 30 MG CAP (CYMBALTA) PO SCH (21:15)
[2019-06-14] MEDS: SLF 3 ML SYR IV SCH ×3 (05:03→21:30)
[2019-06-14 06:00] VITALS: BP 142/66
[2019-06-14] MEDS: IPRATROPIUM 0.5MG/ALBUTEROL 2.5MG INH SOL UD 3ML (DUONEB)(J7620) NEB SCH ×3 (07:57→20:00)
[2019-06-14] MEDS: BISOPROLOL FUMARATE 10 MG TAB PO SCH (08:51)
[2019-06-14] MEDS: risperiDONE 0.25 MG TAB PO SCH (08:51)
[2019-06-14] MEDS: GABAPENTIN 100 MG CAP PO SCH ×2 (08:51→21:18)
[2019-06-14] MEDS: POTASSIUM CHLORIDE 10 MEQ SR TABLET PO SCH (08:51)
[2019-06-14] MEDS: SANTYL OINT 30GM TOP SCH (08:52)
[2019-06-14] MEDS: MAGNESIUM CHLORIDE 64 MG TABCR (SLO MAG) PO SCH (08:52)
[2019-06-14] MEDS: TAVALISSE PO SCH ×2 (08:52→21:16)
[2019-06-14] MEDS: PRAVASTATIN 20 MG TAB PO SCH (08:52)
[2019-06-14] MEDS: FAMOTIDINE 20 MG TAB PO SCH (08:52)
[2019-06-14] MEDS: ENOXAPARIN 100MG/1ML SYRINGE (J1650) SC SCH (08:53)
[2019-06-14] MEDS: HumaLOG INSULIN (NovoLOG) PER UNIT SC SCH ×4 (08:53→21:00)
[2019-06-14 09:12] LABS: HEMOGLOBIN 12.9 g/dl (13.5-17.5); MEAN CORPUSCULAR HEMOGLOBIN 30.8 pg (27.0-33.0); MEAN CORPUSCULAR HGB CONC 32.3 g/dl (32.0-36.5); MEAN CORPUSCULAR VOLUME 95.5 fl (80.0-96.0); PLATELET COUNT, AUTOMATED 156 10^3/uL (150-450); RED BLOOD COUNT 4.19 10^6/uL (4.30-6.10); WHITE BLOOD COUNT 5.7 10^3/uL (4.0-10.0)
[2019-06-14 09:44] LABS: CREATININE FOR GFR 1.25 MG/DL (0.70-1.30); GLOMERULAR FILTRATION RATE 59.3 (>42); POTASSIUM SERUM 4.4 MEQ/L (3.5-5.1)
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
[2019-06-14] MEDS: NORCO, ANEXSIA 5/325MG TABLET (HYDROcodone/ACETAMINOPHEN) PO PRN (12:00)
[2019-06-14 14:00] VITALS: BP 121/53
--- NOTE | 2019-06-14 14:40 | REP ---
?THREE VIEWS OF THE LEFT SHOULDER: REASON: Shoulder pain. No history of trauma whatsoever. PRIORS: None. There are chronic changes present. There has been what is most likely previous distal clavicular excision. The appearance of the distal clavicle is unchanged when an old chest radiograph of 05/12/2015 was reviewed. Chronic changes are seen involving the glenohumeral joint with joint space narrowing and humeral head marginal osteophytosis. There is no evidence of an acute fracture, dislocation or subluxation . IMPRESSION: Chronic changes as described above. Electronically Signed by Shaheed Kline DO 06/14/2019 03:21 P
[2019-06-14 18:00] VITALS: BP 127/83
[2019-06-14] MEDS ORDERED: ARIPiprazole 2 MG TAB PO SCH (18:00)
[2019-06-14] MEDS: PANTOPRAZOLE 40MG TAB (PROTONIX) PO SCH (18:10)
[2019-06-14] MEDS: RIVAROXABAN 20 MG TAB (XARELTO) PO SCH (18:10)
--- NOTE | 2019-06-14 19:29 | REPVR ---
EXAM: CT Head Without Contrast EXAM DATE/TIME: 06/14/2019 6:09 PM CLINICAL HISTORY: 79 years old, male; Altered mental status/memory loss; Additional info: Ms change, RO bleed TECHNIQUE: Imaging protocol: Computed tomography images of the head without contrast. Radiation optimization: All CT scans at this facility use at least one of these dose optimization techniques: automated exposure control; mA and/or kV adjustment per patient size (includes targeted exams where dose is matched to clinical indication); or iterative reconstruction. COMPARISON: CT Head without contrast 06/11/2019 9:54 AM FINDINGS: Brain: No intracranial mass, focal mass effect or midline shift. No acute intracranial hemorrhage. Moderate decreased attenuation in periventricular/centrum semiovale white matter. No focal effacement of cortical sulci to indicate acute cortical infarct. Ventricles: Prominent ventricles and CSF spaces suggest parenchymal volume loss. Bones/joints: No calvarial fracture or destructive process. Sinuses: Visualized paranasal sinuses are unremarkable. Mastoid air cells: Mastoid air cells are normally aerated. Orbits: Visualized globes and orbits are unremarkable. Soft tissues: No focal extracranial soft tissue swelling. IMPRESSION: 1. No acute intracranial hemorrhage or discernible mass effect. 2. Atrophy and chronic microangiopathic change in supratentorial white matter. Electronically signed by: Fabiano George On 06/14/2019 19:29:11 PM
[2019-06-14] MEDS: DULoxetine 30 MG CAP (CYMBALTA) PO SCH (21:18)
[2019-06-14 22:00] VITALS: BP 132/78
[2019-06-15] MEDS: SLF 3 ML SYR IV SCH ×3 (05:46→22:23)
[2019-06-15 05:53] LABS: HEMATOCRIT 36.9 % (42.0-52.0); HEMOGLOBIN 11.8 g/dl (13.5-17.5); MEAN CORPUSCULAR HEMOGLOBIN 30.1 pg (27.0-33.0); MEAN CORPUSCULAR VOLUME 94.1 fl (80.0-96.0); PLATELET COUNT, AUTOMATED 137 10^3/uL (150-450); RED BLOOD COUNT 3.92 10^6/uL (4.30-6.10); WHITE BLOOD COUNT 4.8 10^3/uL (4.0-10.0)
[2019-06-15 06:00] VITALS: BP 124/70
[2019-06-15 06:18] LABS: BLOOD UREA NITROGEN 14 MG/DL (7-18); CALCIUM LEVEL 8.6 MG/DL (8.8-10.2); CARBON DIOXIDE LEVEL 28 MEQ/L (21-32); CHLORIDE LEVEL 110 MEQ/L (98-107); CREATININE FOR GFR 1.08 MG/DL (0.70-1.30); GLOMERULAR FILTRATION RATE > 60.0 (>42); GLUCOSE, FASTING 182 MG/DL (70-100); POTASSIUM SERUM 3.8 MEQ/L (3.5-5.1); SODIUM LEVEL 143 MEQ/L (136-145)
[2019-06-15] MEDS: HumaLOG INSULIN (NovoLOG) PER UNIT SC SCH ×4 (07:30→18:51)
[2019-06-15] MEDS: IPRATROPIUM 0.5MG/ALBUTEROL 2.5MG INH SOL UD 3ML (DUONEB)(J7620) NEB SCH ×3 (08:00→20:00)
[2019-06-15] MEDS: GABAPENTIN 100 MG CAP PO SCH ×2 (08:43→22:21)
[2019-06-15] MEDS: NORCO, ANEXSIA 5/325MG TABLET (HYDROcodone/ACETAMINOPHEN) PO PRN ×4 (08:43→23:25)
[2019-06-15] MEDS: TAVALISSE PO SCH ×2 (09:00→21:00)
[2019-06-15 10:00] VITALS: BP 181/79
[2019-06-15] MEDS: POTASSIUM CHLORIDE 10 MEQ SR TABLET PO SCH (11:00)
[2019-06-15] MEDS: risperiDONE 0.25 MG TAB PO SCH ×2 (11:10→22:22)
[2019-06-15] MEDS: PRAVASTATIN 20 MG TAB PO SCH (11:13)
[2019-06-15] MEDS: LISINOPRIL 20 MG TAB PO SCH (11:13)
[2019-06-15] MEDS: MAGNESIUM CHLORIDE 64 MG TABCR (SLO MAG) PO SCH (11:14)
[2019-06-15] MEDS: FAMOTIDINE 20 MG TAB PO SCH (11:18)
[2019-06-15] MEDS: BISOPROLOL FUMARATE 10 MG TAB PO SCH (11:19)
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
[2019-06-15] MEDS: SANTYL OINT 30GM TOP SCH (16:47)
[2019-06-15 18:00] VITALS: BP 175/90
[2019-06-15] MEDS: RIVAROXABAN 20 MG TAB (XARELTO) PO SCH (18:50)
[2019-06-15 22:00] VITALS: BP 126/68
[2019-06-16 02:00] VITALS: BP 113/58
[2019-06-16 05:51] LABS: HEMATOCRIT 37.4 % (42.0-52.0); MEAN CORPUSCULAR HEMOGLOBIN 30.5 pg (27.0-33.0); MEAN CORPUSCULAR HGB CONC 32.1 g/dl (32.0-36.5); MEAN CORPUSCULAR VOLUME 95.2 fl (80.0-96.0); PLATELET COUNT, AUTOMATED 127 10^3/uL (150-450); RED BLOOD COUNT 3.93 10^6/uL (4.30-6.10); WHITE BLOOD COUNT 4.3 10^3/uL (4.0-10.0)
[2019-06-16 06:00] VITALS: BP 151/67
[2019-06-16] MEDS: SLF 3 ML SYR IV SCH ×3 (06:00→21:51)
[2019-06-16 06:04] LABS: BLOOD UREA NITROGEN 13 MG/DL (7-18); CALCIUM LEVEL 8.6 MG/DL (8.8-10.2); CARBON DIOXIDE LEVEL 28 MEQ/L (21-32); CHLORIDE LEVEL 109 MEQ/L (98-107); CREATININE FOR GFR 1.14 MG/DL (0.70-1.30); GLOMERULAR FILTRATION RATE > 60.0 (>42); GLUCOSE, FASTING 179 MG/DL (70-100); POTASSIUM SERUM 3.7 MEQ/L (3.5-5.1); SODIUM LEVEL 142 MEQ/L (136-145)
[2019-06-16] MEDS: HumaLOG INSULIN (NovoLOG) PER UNIT SC SCH ×4 (07:30→21:00)
[2019-06-16] MEDS: IPRATROPIUM 0.5MG/ALBUTEROL 2.5MG INH SOL UD 3ML (DUONEB)(J7620) NEB SCH ×3 (08:00→20:00)
[2019-06-16] MEDS: POTASSIUM CHLORIDE 10 MEQ SR TABLET PO SCH (09:08)
[2019-06-16] MEDS: FAMOTIDINE 20 MG TAB PO SCH (09:08)
[2019-06-16] MEDS: GABAPENTIN 100 MG CAP PO SCH ×2 (09:08→21:40)
[2019-06-16] MEDS: PRAVASTATIN 20 MG TAB PO SCH (09:08)
[2019-06-16] MEDS: LISINOPRIL 20 MG TAB PO SCH (09:09)
[2019-06-16] MEDS: risperiDONE 0.25 MG TAB PO SCH ×2 (09:09→21:41)
[2019-06-16] MEDS: BISOPROLOL FUMARATE 10 MG TAB PO SCH (09:10)
[2019-06-16] MEDS: MAGNESIUM CHLORIDE 64 MG TABCR (SLO MAG) PO SCH (09:27)
[2019-06-16] MEDS: NORCO, ANEXSIA 5/325MG TABLET (HYDROcodone/ACETAMINOPHEN) PO PRN ×2 (09:31→21:41)
[2019-06-16 10:00] VITALS: BP 142/59
[2019-06-16] MEDS: TAVALISSE PO SCH ×2 (13:31→21:41)
[2019-06-16 14:00] VITALS: BP 120/89
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
[2019-06-16] MEDS: PANTOPRAZOLE 40MG TAB (PROTONIX) PO SCH ×2 (18:00→18:15)
[2019-06-16] MEDS: RIVAROXABAN 20 MG TAB (XARELTO) PO SCH (18:15)
[2019-06-16] MEDS: SANTYL OINT 30GM TOP SCH (18:28)
[2019-06-16] MEDS: HALOPERIDOL 5 MG/ML VIAL (J1630) IM PRN ×2 (18:45→20:31)
[2019-06-17 02:00] VITALS: BP 127/60
[2019-06-17 06:00] VITALS: BP 107/54
[2019-06-17] MEDS: SLF 3 ML SYR IV SCH ×2 (06:00→13:33)
[2019-06-17 06:21] LABS: HEMATOCRIT 36.2 % (42.0-52.0); HEMOGLOBIN 11.6 g/dl (13.5-17.5); MEAN CORPUSCULAR HEMOGLOBIN 30.3 pg (27.0-33.0); MEAN CORPUSCULAR VOLUME 94.5 fl (80.0-96.0); PLATELET COUNT, AUTOMATED 116 10^3/uL (150-450); RED BLOOD COUNT 3.83 10^6/uL (4.30-6.10); WHITE BLOOD COUNT 3.6 10^3/uL (4.0-10.0)
[2019-06-17 06:41] LABS: ALBUMIN 2.3 GM/DL (3.2-5.2); BLOOD UREA NITROGEN 11 MG/DL (7-18); CALCIUM LEVEL 8.7 MG/DL (8.8-10.2); CARBON DIOXIDE LEVEL 28 MEQ/L (21-32); CHLORIDE LEVEL 111 MEQ/L (98-107); CREATININE FOR GFR 1.06 MG/DL (0.70-1.30); GLOMERULAR FILTRATION RATE > 60.0 (>42); GLUCOSE, FASTING 118 MG/DL (70-100); PHOSPHORUS LEVEL 3.4 MG/DL (2.5-4.9); POTASSIUM SERUM 3.7 MEQ/L (3.5-5.1); SODIUM LEVEL 143 MEQ/L (136-145)
[2019-06-17] MEDS: HumaLOG INSULIN (NovoLOG) PER UNIT SC SCH ×4 (07:30→21:00)
[2019-06-17] MEDS: IPRATROPIUM 0.5MG/ALBUTEROL 2.5MG INH SOL UD 3ML (DUONEB)(J7620) NEB SCH ×3 (07:52→20:00)
[2019-06-17] MEDS: HALOPERIDOL 5 MG/ML VIAL (J1630) IM PRN ×2 (08:04→23:18)
[2019-06-17] MEDS: PRAVASTATIN 20 MG TAB PO SCH (09:00)
[2019-06-17] MEDS: SANTYL OINT 30GM TOP SCH (09:00)
[2019-06-17] MEDS: BISOPROLOL FUMARATE 10 MG TAB PO SCH (09:00)
[2019-06-17] MEDS: POTASSIUM CHLORIDE 10 MEQ SR TABLET PO SCH (09:00)
[2019-06-17] MEDS: risperiDONE 0.25 MG TAB PO SCH (09:00)
[2019-06-17] MEDS: GABAPENTIN 100 MG CAP PO SCH ×2 (09:00→21:26)
[2019-06-17] MEDS: TAVALISSE PO SCH ×2 (09:00→21:27)
[2019-06-17] MEDS: FAMOTIDINE 20 MG TAB PO SCH (09:00)
[2019-06-17] MEDS: MAGNESIUM CHLORIDE 64 MG TABCR (SLO MAG) PO SCH (09:00)
[2019-06-17 10:06] VITALS: BP 148/63
[2019-06-17] MEDS: NORCO, ANEXSIA 5/325MG TABLET (HYDROcodone/ACETAMINOPHEN) PO PRN ×2 (10:19→16:04)
[2019-06-17] MEDS: LISINOPRIL 20 MG TAB PO SCH (10:30)
--- NOTE | 2019-06-17 12:15 | IPNPDOC ---
Subjective Date Seen The patient was seen on 06/17/19. Subjective Chief Complaint/HPI Patient sitting at the bedside when I entered the room. His and daughter at bedside. Patient appeared confused but pleasant. expressed her desire to speak with attending Constitutional: Denies: Chills, Fever Skin: Reports: Other (Lacerations/wound bilateral lower extremity and left upper extremity ) Pulmonary: Denies: Dyspnea, Cough Cardiovascular: Denies: Chest Pain, Palpitations Gastrointestinal: Denies: Nausea, Vomiting Neurological: Reports: Confusion (Confused, pleasant ) Objective Physical Examination General Exam: Positive: Alert, Cooperative, No Acute Distress Chest Exam: Positive: Clear to auscultation, Normal air movement Heart Exam: Positive: Rate Normal, Regular Rhythm, Normal S1, Normal S2; Negative: Murmurs, Rubs Abdomen Exam: Positive: Normal bowel sounds, Soft; Negative: Tenderness, Hepatospenomegaly Extremity Exam: Positive: Edema (trace BLE edema), Normal pulses; Negative: Clubbing, Cyanosis Skin Exam: Positive: Other skin issue (dressing intact) Psych Exam: Positive: Mental status NL (Born in 2018, then 2039, then 1939, it takes multiple prompts to get to the correct response, unsure where he is but in a hotel held against his will, year is 2018, president is Simon Ortega); Negative: Mood NL (tells me that he wants to , that he has had a full life and doesn't want to spend the rest of his life taking pills, he wants to go home so no one is telling him what to do and take.) Assessment /Plan Problems (1) Dementia Status: Chronic Problem Text: 06/17/19: Patient appears more cooperative this morning. Per nursing, patient continues to have periods of agitation and aggression. We will increase Risper to 0.5mg po bid chronic c IED (favor FTD)-relatively stable on risper 0.25 BID c halo 1 q1H prn goal in short-term per patient/ to dc home Contingency: parox to reduce disinhibition; risper to quet if EPS se 06/16 long dw again who wants px home (at least for as long as his dementia permits), she will be off 06/17, 06/18 and would like to dc px home on 06/18 06/14 given sedation in late PM (although had been very agitated in AM), Neuro checked CT head NAD and changed risper to aripip 2 BID (given a partial DA agonist, would given low impulse control), but worst-ever agitation 06/15 AM requiring IM halo 1 x 1; therefore, changed back to risper and dced dulox 20 QHS (had been started for chronic pain) 06/11 + risper 0.25 BID PFS addressed options for home safety c /family 06/11/19 CT head NAD (2) Cerebrovascular accident, embolic Status: Acute Problem Text: No recurrent symptoms nor abnormal B/B 06/14 changed LMWH to rivarox 06/13 presumptive AF, but none documented since admission on tele; long dw who will attempt to arrange 12/06 coverage for px to dc home 06/13 given embolic CVA; restart tele, + therapeutic LMWH 06/13/19 MRA brain/carotids s significant stenosis 06/13/19 MRI brain: Numerous small foci of restricted diffusion with associated ADC dropout throughout the bilateral cerebral hemispheres, measuring up to 11 x 8 mm in the right occipital lobe. (not appreciated by 06/11 CT head) 06/10 TTE: 1. Normal appearing and well seated aortic valve bioprosthesis. No aortic stenosis or regurgitation. 2. Mild concentric left ventricle hypertrophy. Normal regional left ventricular (LV) wall motion and wall thickening. Normal LV systolic function. Left ventricular ejection fraction (LVEF) 70% by visual estimate. Grade 1 LV diastolic dysfunction. Normal left atrial size and left atrial volume index. 3. Moderate mitral annular calcification. No mitral regurgitation or stenosis. 4. Normal right ventricle size and systolic function. (3) HTN (hypertension) Status: Chronic Problem Text: stable on HD lisin 20, 06/13 SBP 220; therefore, restarted lisin 20 QD off HD fur 20 TID (4) Ataxia Status: Chronic Problem Text: 06/14 now safe per PT to dc home c services was NOT ARU candidate 2 (5) Syncope Status: Acute Problem Specific Plan: Consult Specialist Problem Text: as per CVA (6) Diabetes mellitus Status: Chronic Problem Text: 06/17/19: Per sliding scale coverage HD glar 40, 05/2019 A1C 9.4 BG mid 100s c solely SSLI (7) Thrombocytopenia Status: Acute Problem Text: 06/17/19: Plt 116 today remains on fostamatinib (in place of GC) per Dr. Lamb caution now on DOAC 06/16 stable at 127K (8) PVD (peripheral vascular disease) Status: Chronic Problem Text: 06/10/19 BLE art US The there is diffuse atheromatous plaque bilaterally. On the right there is stenosis from the mid to distal SFA and stenosis in the distal [employer]ACTICAL NURSE [employer]INICAL COORDINATOR. On the left there is stenosis in the distal SFA and stenosis in the proximal PRACTICAL NURSE CLINICAL COORDINATOR. (9) Chronic wound of extremity Status: Chronic Problem Text: 06/17/19: Dressing changes per Dr. Sanchez's recommendations per Laura: continued Vashe wound cleanser QD covered then with Santyl nickel thick and a foam dressing. Dressing changes can be on an every other day basis. Tubigrip stockings should be utilized BLE Plan/VTE VTE Prophylaxis Ordered?: Yes (Xarelto ) VTE Exclusion Pharmacological: Thrombocytopenia VS, I&O, 24H, Fishbone Vital Signs/I&O Vital Signs Date Time Temp Pulse Resp B/P (MAP) Pulse Ox O2 Delivery O2 Flow Rate FiO2 06/17/19 10:30 142/63 06/17/19 10:19 16 06/17/19 10:06 98.7 67 97 I&O- Last 24 Hours up to 6 AM 06/17/19 06:00 Intake Total 370 ml Output Total 0 ml Balance 370 ml Laboratory Data 24H LABS Laboratory Tests 2 06/17/19 05:24: Nucleated Red Blood Cells % (auto) 0.0, Blood Urea Nitrogen 11, Creatinine 1.06, Sodium Level 143, Potassium Level 3.7, Chloride Level 111H, Carbon Dioxide Level 28, Anion Gap 4L, Glomerular Filtration Rate > 60.0, Calcium Level 8.7L, Phosphorus Level 3.4, Albumin 2.3L CBC/BMP Laboratory Tests 06/17/19 05:24 Red Blood Count 3.83 L, Mean Corpuscular Volume 94.5, Mean Corpuscular Hemoglobin 30.3, Mean Corpuscular Hemoglobin Concent 32.0, Red Cell Distribution Width 13.7, Anion Gap 4 L AMANDA MOYER [facility] Jun 17, 2019 11:31
[2019-06-17 14:00] VITALS: BP 125/68
[2019-06-17] MEDS: RIVAROXABAN 20 MG TAB (XARELTO) PO SCH (17:49)
[2019-06-17] MEDS: risperiDONE 0.5 MG TAB PO SCH (21:26)
[2019-06-17 22:00] VITALS: BP 123/62
[2019-06-18] MEDS: SLF 3 ML SYR IV SCH ×3 (00:28→14:00)
[2019-06-18] MEDS: HALOPERIDOL 5 MG/ML VIAL (J1630) IM PRN ×2 (06:01→10:38)
[2019-06-18] MEDS: HumaLOG INSULIN (NovoLOG) PER UNIT SC SCH ×4 (07:30→21:00)
[2019-06-18] MEDS: IPRATROPIUM 0.5MG/ALBUTEROL 2.5MG INH SOL UD 3ML (DUONEB)(J7620) NEB SCH ×3 (07:37→20:00)
[2019-06-18] MEDS: PRAVASTATIN 20 MG TAB PO SCH ×2 (09:00→10:24)
[2019-06-18] MEDS: FAMOTIDINE 20 MG TAB PO SCH ×2 (09:00→10:23)
[2019-06-18] MEDS: POTASSIUM CHLORIDE 10 MEQ SR TABLET PO SCH ×2 (09:00→10:23)
[2019-06-18] MEDS: TAVALISSE PO SCH ×2 (09:00→21:00)
[2019-06-18] MEDS: MAGNESIUM CHLORIDE 64 MG TABCR (SLO MAG) PO SCH (09:00)
[2019-06-18] MEDS: NORCO, ANEXSIA 5/325MG TABLET (HYDROcodone/ACETAMINOPHEN) PO PRN ×2 (10:21→13:59)
[2019-06-18] MEDS: risperiDONE 0.5 MG TAB PO SCH (10:22)
[2019-06-18] MEDS: GABAPENTIN 100 MG CAP PO SCH ×2 (10:22→21:00)
[2019-06-18] MEDS: SANTYL OINT 30GM TOP SCH (10:25)
[2019-06-18] MEDS: BISOPROLOL FUMARATE 10 MG TAB PO SCH (10:31)
[2019-06-18] MEDS: LISINOPRIL 20 MG TAB PO SCH (10:31)
--- NOTE | 2019-06-18 12:22 | IPNPDOC ---
Subjective Date Seen The patient was seen on 06/18/19. Subjective Chief Complaint/HPI Patient sleeping s/p Haldol injection. Nursing continues to report behavioral outburst General: Reports: ROS Unobtainable Objective Physical Examination General Exam: Positive: No Acute Distress; Negative: Alert Chest Exam: Positive: Clear to auscultation, Normal air movement Heart Exam: Positive: Rate Normal, Regular Rhythm, Normal S1, Normal S2; Negative: Murmurs, Rubs Abdomen Exam: Positive: Normal bowel sounds, Soft; Negative: Tenderness, Hepatospenomegaly Extremity Exam: Positive: Edema (trace BLE edema), Normal pulses; Negative: Clubbing, Cyanosis Skin Exam: Positive: Other skin issue (dressing intact) Psych Exam: Positive: Mental status NL (Born in 2018, then 2039, then 1939, it takes multiple prompts to get to the correct response, unsure where he is but in a hotel held against his will, year is 2018, president is Simon Ortega); Negative: Mood NL (tells me that he wants to , that he has had a full life and doesn't want to spend the rest of his life taking pills, he wants to go home so no one is telling him what to do and take.) Assessment /Plan Problems (1) Dementia Status: Chronic Problem Text: 06/18/19: Risper increased to 1mg po bid. Depakote 250 mg po daily added to current regimen. He continues to have a sitter at bedside 06/17/19: Patient appears more cooperative this morning. Per nursing, patient c ontinues to have periods of agitation and aggression. We will increase Risper to 0.5mg po bid chronic c IED (favor FTD)-relatively stable on risper 0.25 BID c halo 1 q1H prn goal in short-term per patient/ to dc home Contingency: parox to reduce disinhibition; risper to quet if EPS se 06/16 long dw again who wants px home (at least for as long as his dementia permits), she will be off 06/17, 06/18 and would like to dc px home on 06/18 06/14 given sedation in late PM (although had been very agitated in AM), Neuro checked CT head NAD and changed risper to aripip 2 BID (given a partial DA agonist, would given low impulse control), but worst-ever agitation 06/15 AM requiring IM halo 1 x 1; therefore, changed back to risper and dced dulox 20 QHS (had been started for chronic pain) 06/11 + risper 0.25 BID PFS addressed options for home safety c /family 06/11/19 CT head NAD (2) Cerebrovascular accident, embolic Status: Acute Problem Text: No recurrent symptoms nor abnormal B/B 06/14 changed LMWH to rivarox 06/13 presumptive AF, but none documented since admission on tele; long dw who will attempt to arrange 12/06 coverage for px to dc home 06/13 given embolic CVA; restart tele, + therapeutic LMWH 06/13/19 MRA brain/carotids s significant stenosis 06/13/19 MRI brain: Numerous small foci of restricted diffusion with associated ADC dropout throughout the bilateral cerebral hemispheres, measuring up to 11 x 8 mm in the right occipital lobe. (not appreciated by 06/11 CT head) 06/10 TTE: 1. Normal appearing and well seated aortic valve bioprosthesis. No aortic stenosis or regurgitation. 2. Mild concentric left ventricle hypertrophy. Normal regional left ventricular (LV) wall motion and wall thickening. Normal LV systolic function. Left ventricular ejection fraction (LVEF) 70% by visual estimate. Grade 1 LV diastolic dysfunction. Normal left atrial size and left atrial volume index. 3. Moderate mitral annular calcification. No mitral regurgitation or stenosis. 4. Normal right ventricle size and systolic function. (3) HTN (hypertension) Status: Chronic Problem Text: stable on HD lisin 20, 06/13 SBP 220; therefore, restarted lisin 20 QD off HD fur 20 TID (4) Ataxia Status: Chronic Problem Text: 06/14 now safe per PT to dc home c services was NOT ARU candidate 2 (5) Syncope Status: Acute Problem Specific Plan: Consult Specialist Problem Text: as per CVA (6) Diabetes mellitus Status: Chronic Problem Text: 06/17/19: Per sliding scale coverage HD glar 40, 05/2019 A1C 9.4 BG mid 100s c solely SSLI (7) Thrombocytopenia Status: Acute Problem Text: 06/17/19: Plt 116 today remains on fostamatinib (in place of GC) per Dr. Lamb caution now on DOAC 06/16 stable at 127K (8) PVD (peripheral vascular disease) Status: Chronic Problem Text: 06/10/19 BLE art US The there is diffuse atheromatous plaque bilaterally. On the right there is stenosis from the mid to distal SFA and stenosis in the distal SALES REPRESENTATIVE [employer]. On the left there is stenosis in the distal SFA and stenosis in the proximal [employer]ES [employer]PRESENT[employer]IVE [employer]. (9) Chronic wound of extremity Status: Chronic Problem Text: 06/17/19: Dressing changes per Dr. Sanchez's recommendations per Laura: continued Vashe wound cleanser QD covered then with Santyl nickel thick and a foam dressing. Dressing changes can be on an every other day basis. Tubigrip stockings should be utilized BLE Plan/VTE VTE Prophylaxis Ordered?: Yes (Xarelto ) VTE Exclusion Pharmacological: Thrombocytopenia VS, I&O, 24H, Fishbone Vital Signs/I&O Vital Signs Date Time Temp Pulse Resp B/P (MAP) Pulse Ox O2 Delivery O2 Flow Rate FiO2 06/18/19 10:51 16 06/17/19 22:00 96.9 66 123/62 (82) 99 I&O- Last 24 Hours up to 6 AM 06/18/19 06:00 Intake Total 1420 ml Output Total 750 ml Balance 670 ml Laboratory Data 24H LABS Laboratory Tests 2 06/17/19 17:04: Bedside Glucose (Misc Panel) 102 06/17/19 20:31: Bedside Glucose (Misc Panel) 114H 06/18/19 11:42: Bedside Glucose (Misc Panel) 167H AMANDA MOYER [facility] Jun 18, 2019 12:21
[2019-06-18 13:37] VITALS: BP 157/90
[2019-06-18] MEDS: DIVALPROEX 250 MG TAB PO SCH (15:47)
[2019-06-18] MEDS: ACETAMINOPHEN TAB 650MG DOSE (2X325MG) PO PRN (15:48)
[2019-06-18] MEDS: PANTOPRAZOLE 40MG TAB (PROTONIX) PO SCH (18:05)
[2019-06-18] MEDS: RIVAROXABAN 20 MG TAB (XARELTO) PO SCH (18:05)
[2019-06-18] MEDS: risperiDONE 1 MG TAB PO SCH (21:00)
[2019-06-18 22:00] VITALS: BP_SYST 170; BP_SYST 192; BP_DIAS 92; BP_DIAS 95
[2019-06-18 23:19] LABS: BASO % 0.2 % (0.0-1.0); HEMATOCRIT 38.3 % (42.0-52.0); HEMOGLOBIN 12.2 g/dl (13.5-17.5); LYMPH # 0.4 10^3/uL (1.5-4.5); MEAN CORPUSCULAR HEMOGLOBIN 29.8 pg (27.0-33.0); MEAN CORPUSCULAR HGB CONC 31.9 g/dl (32.0-36.5); MEAN CORPUSCULAR VOLUME 93.4 fl (80.0-96.0); MONO # 0.2 10^3/uL (0.0-0.8); MONO % 3.4 % (0.0-5.0); NEUTROPHILS # 4.4 10^3/uL (1.8-7.7); PLATELET COUNT, AUTOMATED 124 10^3/uL (150-450)
[2019-06-18] MEDS: ACETAMINOPHEN 650 MG SUPP PR PRN (23:37)
[2019-06-18 23:42] LABS: ALBUMIN 2.8 GM/DL (3.2-5.2); ALT/SGPT 18 U/L (12-78); BILIRUBIN,TOTAL 0.6 MG/DL (0.2-1.0); BLOOD UREA NITROGEN 12 MG/DL (7-18); CALCIUM LEVEL 9.2 MG/DL (8.8-10.2); CARBON DIOXIDE LEVEL 25 MEQ/L (21-32); CHLORIDE LEVEL 106 MEQ/L (98-107); GLOMERULAR FILTRATION RATE > 60.0 (>42); GLUCOSE, FASTING 156 MG/DL (70-100); MAGNESIUM LEVEL 2.1 MG/DL (1.8-2.4); POTASSIUM SERUM 4.1 MEQ/L (3.5-5.1); SODIUM LEVEL 138 MEQ/L (136-145); TOTAL PROTEIN 6.5 GM/DL (6.4-8.2)
[2019-06-19] VITALS (7 sets, daily range): BP systolic 103–151; BP diastolic 58–73
[2019-06-19] MEDS ORDERED: AZTREONAM 1 GM in D5W MINI-BAG PLUS 50 ML IV SCH (00:15)
[2019-06-19] MEDS ORDERED: VANCOMYCIN HCL 750 MG, VIAL MATE ADAPTER 1 EACH in D5W 250 ML IV SCH (00:15)
[2019-06-19 00:40] LABS: APPEARANCE, URINE CLEAR (CLEAR); BACTERIA, URINE AUTO NEGATIVE (NEGATIVE); BILIRUBIN, URINE AUTO NEGATIVE (NEGATIVE); BLOOD, URINE BLOOD NEGATIVE (NEGATIVE); COLOR, URINE YELLOW (YELLOW); GLUCOSE, URINE (UA) AUTO NEGATIVE (NEGATIVE); KETONE, URINE AUTO TRACE mg/dL (NEGATIVE); LEUKOCYTE ESTERASE, URINE AUTO NEGATIVE (NEGATIVE); NITRITE, URINE AUTO NEGATIVE (NEGATIVE); PROTEIN, URINE AUTO NEGATIVE (NEGATIVE); RBC, URINE AUTO 1 /HPF (0-3); SPECIFIC GRAVITY URINE AUTO 1.011 (1.002-1.035); SQUAMOUS EPITHELIAL CELL UR AU 0 /HPF (0-6); UROBILINOGEN, URINE AUTO 0.2 mg/dL (0.0-2.0); WBC, URINE AUTO 17 /HPF (0-3)
[2019-06-19] MEDS: VANCOMYCIN HCL 1,000 MG, VIAL MATE ADAPTER 1 EACH in D5W 250 ML IV SCH ×3 (01:40→16:51)
[2019-06-19] MEDS ORDERED: VANCOMYCIN HCL 1,000 MG, VIAL MATE ADAPTER 1 EACH in D5W 250 ML IV ONE (02:00)
[2019-06-19] MEDS ORDERED: AZTREONAM 2 GM in D5W MINI-BAG PLUS 50 ML IV SCH (03:00)
[2019-06-19] MEDS: SLF 3 ML SYR IV SCH ×4 (03:42→22:56)
[2019-06-19] MEDS: ACETAMINOPHEN 650 MG SUPP PR PRN (06:10)
[2019-06-19 06:20] LABS: HEMOGLOBIN 11.2 g/dl (13.5-17.5); MEAN CORPUSCULAR VOLUME 93.8 fl (80.0-96.0); RED BLOOD COUNT 3.73 10^6/uL (4.30-6.10); WHITE BLOOD COUNT 7.2 10^3/uL (4.0-10.0)
[2019-06-19 06:23] LABS: PLATELET COUNT, AUTOMATED 96 10^3/uL (150-450)
[2019-06-19 06:51] LABS: ALBUMIN 2.5 GM/DL (3.2-5.2); ALT/SGPT 17 U/L (12-78); BILIRUBIN,TOTAL 0.6 MG/DL (0.2-1.0); BLOOD UREA NITROGEN 11 MG/DL (7-18); CALCIUM LEVEL 8.8 MG/DL (8.8-10.2); CARBON DIOXIDE LEVEL 21 MEQ/L (21-32); CHLORIDE LEVEL 104 MEQ/L (98-107); CREATININE FOR GFR 1.16 MG/DL (0.70-1.30); GLOMERULAR FILTRATION RATE > 60.0 (>42); GLUCOSE, FASTING 243 MG/DL (70-100); POTASSIUM SERUM 3.9 MEQ/L (3.5-5.1); SODIUM LEVEL 136 MEQ/L (136-145); TOTAL PROTEIN 5.8 GM/DL (6.4-8.2)
[2019-06-19] MEDS: IPRATROPIUM 0.5MG/ALBUTEROL 2.5MG INH SOL UD 3ML (DUONEB)(J7620) NEB SCH ×3 (07:36→20:00)
[2019-06-19] MEDS: HumaLOG INSULIN (NovoLOG) PER UNIT SC SCH ×4 (08:34→20:58)
[2019-06-19] MEDS: TAVALISSE PO SCH ×2 (08:35→20:45)
[2019-06-19] MEDS: DIVALPROEX 250 MG TAB PO SCH (08:35)
[2019-06-19] MEDS: risperiDONE 1 MG TAB PO SCH (08:35)
[2019-06-19] MEDS: POTASSIUM CHLORIDE 10 MEQ SR TABLET PO SCH (08:35)
[2019-06-19] MEDS: GABAPENTIN 100 MG CAP PO SCH ×2 (08:35→20:45)
[2019-06-19] MEDS: BISOPROLOL FUMARATE 10 MG TAB PO SCH (08:36)
[2019-06-19] MEDS: MAGNESIUM CHLORIDE 64 MG TABCR (SLO MAG) PO SCH (08:36)
[2019-06-19] MEDS: FAMOTIDINE 20 MG TAB PO SCH (08:36)
[2019-06-19] MEDS: PRAVASTATIN 20 MG TAB PO SCH (08:36)
[2019-06-19] MEDS: LISINOPRIL 20 MG TAB PO SCH (08:37)
[2019-06-19] MEDS: NORCO, ANEXSIA 5/325MG TABLET (HYDROcodone/ACETAMINOPHEN) PO PRN (08:37)
[2019-06-19] MEDS: SANTYL OINT 30GM TOP SCH (09:00)
[2019-06-19] MEDS: NS 1,000 ML IV SCH (11:15)
[2019-06-19] MEDS ORDERED: MEROPENEM INJ 1 GM in D5W MINI-BAG PLUS 100 ML IV SCH (12:00)
--- NOTE | 2019-06-19 12:29 | REP ---
Clinical: Fever . Technique: AP and lateral Comparison: 06/08/2019 . Findings: T stable cardiomegaly is appreciated. Evidence of prior sternotomy. Left lower lobe atelectasis and possible small left pleural effusion cannot definitively be excluded. Impression: Cannot exclude left basilar atelectasis or small pleural effusion. Electronically Signed by Sergio Olmedo MD 06/19/2019 12:20 P
[2019-06-19] MEDS: HALOPERIDOL 5 MG/ML VIAL (J1630) IM PRN ×2 (12:40→20:46)
[2019-06-19] MEDS: DICLOFENAC EPOLAMINE 1.3 % PATCH TOP SCH ×2 (13:55→20:46)
[2019-06-19 15:17] LABS: VENOUS BASE EXCESS -3.6 (-2.0-2.0); VENOUS HCO3 19.8 MEQ/L (23.0-27.0); VENOUS O2 SATURATION 99.1 % (60.0-80.0); VENOUS PARTIAL PRESSURE CO2 30.7 mmHg (38.0-50.0); VENOUS PARTIAL PRESSURE O2 163.3 mmHg (30.0-50.0); VENOUS PH 7.427 UNITS (7.330-7.430); VENOUS STANDARD HCO3 21.6 MEQ/L; VENOUS TOTAL CO2 20.7 MEQ/L (24.0-28.0)
[2019-06-19] MEDS ORDERED: risperiDONE 1 MG TAB PO SCH (16:00)
[2019-06-19 16:34] LABS: BASO % 0.3 % (0.0-1.0); EOS % 0.1 % (0.0-3.0); HEMATOCRIT 36.7 % (42.0-52.0); HEMOGLOBIN 11.6 g/dl (13.5-17.5); LYMPH # 0.9 10^3/uL (1.5-4.5); LYMPH % 10.2 % (24.0-44.0); MEAN CORPUSCULAR HEMOGLOBIN 30.1 pg (27.0-33.0); MEAN CORPUSCULAR HGB CONC 31.6 g/dl (32.0-36.5); MEAN CORPUSCULAR VOLUME 95.1 fl (80.0-96.0); MONO # 0.6 10^3/uL (0.0-0.8); MONO % 6.9 % (0.0-5.0); NEUTROPHILS # 7.4 10^3/uL (1.8-7.7); NEUTROPHILS % 82.1 % (36.0-66.0); PLATELET COUNT, AUTOMATED 122 10^3/uL (150-450); RED BLOOD COUNT 3.86 10^6/uL (4.30-6.10)
[2019-06-19] MEDS: RIVAROXABAN 20 MG TAB (XARELTO) PO SCH (17:28)
[2019-06-19] MEDS: MEROPENEM INJ 1 GM in IV 1 EA IV SCH (22:56)
--- NOTE | 2019-06-20 00:32 | PHACANCOPD ---
PHARMACY VANCOMYCIN DOSING Pt Demographics Demographics Patient Age:79 , Weight:115.000 , Gender: male Adjusted Body Weight Date: 06/20/19, Adjusted Body Weight: Kg Events Past 24 Hours Events Past 24 Hours: NO: Dialysis, Diuretic Therapy, Change in CrCl, Fever, Elevation in WBC, Pending Diagnostics, Pending Procedures, Other Vancomycin Vancomycin Target Ranges: 15-20 mcg/ml Vancomycin Load Y/N: Yes Load Dose Date Time Vancomycin Load Dose: 2000mg Date: 06-19 Time: 0100 Vancomycin Dose Date: 06/20/19. Current Vancomycin Dose: [1000mg q8h] Intermittent Dosing?: No Labs Labs Item Value Date Time White Blood Count 9.0 10^3/uL 06/19/19 1614 Glomerular Filtration Rate > 60.0 06/19/19518 Creatinine 1.16 MG/DL 06/19/19518 Blood Urea Nitrogen 11 MG/DL 06/19/19518 Vancomycin Level Trough 18.7 UG/ML 06/19/19 235 Vital Signs Label Value Date Time Patient Temperature 96.8 degrees F 06/19/19 1800 Temperature Source Temporal 06/19/19 1800 Micro Microbiology 06/19/19 Blood Culture, Received Pending 06/19/19 Blood Culture, Received Pending 06/18/19 Blood Culture - Preliminary, Resulted 06/18/19 Urine Culture, Received Pending 06/18/19 Gram Stain - Final, Resulted 06/18/19 Wound Culture, Resulted Pending Creatinine Clearance Date:06/20/19. Creatinine Clearance: [~55]. Pending Labs Item Value Date Time Vancomycin Level Trough 18.7 UG/ML 06/19/192351 Creatinine 1.16 MG/DL 06/19/19518 Glomerular Filtration Rate > 60.0 06/19/19518 Blood Urea Nitrogen 11 MG/DL 06/19/19518 White Blood Count 9.0 10^3/uL 06/19/19 1614 Assessment and Plan Maintaining Current Dose?: Yes Reason for dose change: No Dose Change Pharmacist Note Pharmacist Note Date: 06/20/19. Pharmacist note:Trough of 18.7 is within target range will continue current dosing. Will continue to monitor and make adjustments as needed. LAURA [facility] Jun 20, 2019 00:32
[2019-06-20] MEDS: VANCOMYCIN HCL 1,000 MG, VIAL MATE ADAPTER 1 EACH in D5W 250 ML IV SCH ×3 (01:25→17:28)
[2019-06-20 02:00] VITALS: BP 129/75
[2019-06-20] MEDS: HALOPERIDOL 5 MG/ML VIAL (J1630) IM PRN ×3 (02:33→21:40)
[2019-06-20] MEDS: NS 1,000 ML IV SCH ×2 (03:55→19:35)
[2019-06-20] MEDS: ACETAMINOPHEN TAB 650MG DOSE (2X325MG) PO PRN ×3 (04:17→18:45)
[2019-06-20 05:41] LABS: HEMATOCRIT 34.8 % (42.0-52.0); MEAN CORPUSCULAR HEMOGLOBIN 29.6 pg (27.0-33.0); MEAN CORPUSCULAR HGB CONC 31.6 g/dl (32.0-36.5); MEAN CORPUSCULAR VOLUME 93.5 fl (80.0-96.0); PLATELET COUNT, AUTOMATED 93 10^3/uL (150-450); RED BLOOD COUNT 3.72 10^6/uL (4.30-6.10); WHITE BLOOD COUNT 7.4 10^3/uL (4.0-10.0)
[2019-06-20 06:00] VITALS: BP 149/69
[2019-06-20] MEDS: SLF 3 ML SYR IV SCH ×3 (06:00→21:57)
[2019-06-20] MEDS: MEROPENEM INJ 1 GM in IV 1 EA IV SCH ×3 (06:00→21:58)
--- NOTE | 2019-06-20 06:57 | REPVR ---
EXAM: US Duplex Right Upper Extremity Veins, Limited EXAM DATE/TIME: 06/20/2019 6:22 AM CLINICAL HISTORY: 79 years old, male; Pain; Arm; Right; Additional info: Checking for dvt in R arm TECHNIQUE: Imaging protocol: Real-time Duplex ultrasound of the Right Upper Extremity with 2-D menjivar scale, color Doppler flow and spectral waveform analysis with image documentation. Limited exam focused on the right upper extremity veins. COMPARISON: US DUPLEX EXT UPPER VEINS UNILATE 09/19/2018 6:57 AM FINDINGS: Limitations: Study is limited with incomplete demonstration of the superficial and deep venous structures. Patient was combative and uncooperative. The technologist was unable to scan the brachial vein and basilic vein. Right deep veins: Study limited as the technologist was unable to scan the brachial vein. Axillary vein is patent throughout without thrombus. Normal Doppler waveforms. Normal compressibility and/or augmentation response. Visualized internal jugular and subclavian veins are patent. Right superficial veins: Study limited as the technologist was unable to scan the basilic vein. Visualized cephalic vein is patent without thrombus. Soft tissues: No suspicious fluid collections. IMPRESSION: Study is limited with incomplete demonstration of the superficial and deep venous structures. Patient was combative and uncooperative. The technologist was unable to scan the brachial vein and basilic vein. The demonstrated right axillary vein, right subclavian vein and right internal jugular vein are patent. No clot demonstrated. The demonstrated cephalic vein is patent. No clot demonstrated. Electronically signed by: Sergio Young On 06/20/2019 06:57:23 AM
[2019-06-20] MEDS: IPRATROPIUM 0.5MG/ALBUTEROL 2.5MG INH SOL UD 3ML (DUONEB)(J7620) NEB SCH ×3 (07:48→20:00)
[2019-06-20] MEDS: DIVALPROEX 250 MG TAB PO SCH ×2 (09:00→09:09)
[2019-06-20] MEDS: MAGNESIUM CHLORIDE 64 MG TABCR (SLO MAG) PO SCH ×2 (09:00→09:03)
[2019-06-20] MEDS: LISINOPRIL 20 MG TAB PO SCH ×2 (09:00→09:09)
[2019-06-20] MEDS: GABAPENTIN 100 MG CAP PO SCH ×3 (09:00→21:39)
[2019-06-20] MEDS: BISOPROLOL FUMARATE 10 MG TAB PO SCH ×2 (09:00→09:07)
[2019-06-20] MEDS: POTASSIUM CHLORIDE 10 MEQ SR TABLET PO SCH ×2 (09:00→09:09)
[2019-06-20] MEDS: FAMOTIDINE 20 MG TAB PO SCH ×2 (09:00→09:08)
[2019-06-20] MEDS: TAVALISSE PO SCH ×3 (09:00→21:00)
[2019-06-20] MEDS: PRAVASTATIN 20 MG TAB PO SCH ×2 (09:00→09:09)
[2019-06-20] MEDS: DICLOFENAC EPOLAMINE 1.3 % PATCH TOP SCH ×2 (09:04→21:39)
[2019-06-20] MEDS: HumaLOG INSULIN (NovoLOG) PER UNIT SC SCH ×5 (09:04→21:00)
[2019-06-20] MEDS: SANTYL OINT 30GM TOP SCH (09:10)
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
[2019-06-20 10:00] VITALS: BP 134/66
[2019-06-20] MEDS ORDERED: HALOPERIDOL 5 MG/ML VIAL (J1630) IM ONE (11:30)
--- NOTE | 2019-06-20 11:47 | IPN ---
DATE: 06/19/2019 Mr. Samano was seen in his room accompanied by his and nurse. He is sleepy but responsive to stimuli. He has been combative. Blood cultures are tentatively positive for gram-positive cocci in clusters. Antibiotics will be modified accordingly. He was started on aztreonam last night because of fever and vancomycin added again because of fever/sepsis. At this point the patient is responsive, but again uncooperative unless directly assisted by his spouse and she has been most kind to be able to be attendant at the bedside for a lot of his stay. OBJECTIVE: Blood pressure 103/60, 123/58, pulse 99-72, temperature 99.1 this morning. He had been 102.8 at midnight. Castro catheter had to be placed because of inability to void and a large-volume was confirmed to be present related to urinary retention. Examination today shows his lungs are clear to auscultation. Heart: Regular rhythm, no murmur noted. Abdomen: Obese. No guarding or tenderness. He has bilateral arm puffiness related to depend positioning and had IV access use and phlebotomies. He does answer yes, no and mutters semi coherent responses to queries but no review of systems is really obtainable. ASSESSMENT: 1. Fever. Suspect sepsis. His p.o. intake is minimal. Therefore, IV fluids will be started. Antibiotic will be changed from aztreonam plus vancomycin to meropenem plus vancomycin. Although he has reported penicillin allergy the probability of cross reaction between penicillin and meropenem is quite low and this hazard was discussed with his who agrees with the change. 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 4. Cushingoid from recent steroid effects. Recent steroids for control of ITP. 5. Status post partial colon resection for treatment of colon cancer. had hoped to take him home but has come to realize that his illnesses to profound and requires to much supportive care for her to take him home at this point, although there is some possibility of rehabilitation improvement. At this point, he needs to be on IV antibiotics for bacteremia. Will continue the current combination pending culture results when hopefully we can know his results. Nurse will review his current wound care and make followup consult with Dr. Sanchez if necessary based on the wound appearance. Discussion with his charge nurse suggests that the wound is currently doing well on his left upper arm. These wounds were occluded in what was cultured yesterday along with urinalysis. Castro catheter will remain in place for the time being for treatment of his urinary retention. Will start Flomax to see if we can improve his urinary flow. Prognosis is guarded considering this complication developing apparent gram-positive bacteremia. Echocardiogram was done, but may need to be repeated now that the bacteremia has been detected.
[2019-06-20 14:00] VITALS: BP 146/59
[2019-06-20] MEDS: risperiDONE 2 MG TAB PO SCH ×2 (16:00→17:28)
[2019-06-20] MEDS: RIVAROXABAN 20 MG TAB (XARELTO) PO SCH ×2 (17:28→18:00)
[2019-06-20] MEDS: PANTOPRAZOLE 40MG TAB (PROTONIX) PO SCH ×2 (17:29→18:00)
[2019-06-20 18:00] VITALS: BP 146/67
[2019-06-20] MEDS: NORCO, ANEXSIA 5/325MG TABLET (HYDROcodone/ACETAMINOPHEN) PO PRN (21:39)
[2019-06-20 22:00] VITALS: BP 133/70
[2019-06-21] VITALS (7 sets, daily range): BP systolic 126–166; BP diastolic 65–82
[2019-06-21] MEDS: VANCOMYCIN HCL 1,000 MG, VIAL MATE ADAPTER 1 EACH in D5W 250 ML IV SCH ×3 (01:11→18:04)
[2019-06-21] MEDS: NORCO, ANEXSIA 5/325MG TABLET (HYDROcodone/ACETAMINOPHEN) PO PRN ×2 (05:24→14:23)
[2019-06-21] MEDS: MEROPENEM INJ 1 GM in IV 1 EA IV SCH (05:24)
[2019-06-21 05:50] LABS: ALBUMIN 2.1 GM/DL (3.2-5.2); ALT/SGPT 13 U/L (12-78); BILIRUBIN,TOTAL 0.5 MG/DL (0.2-1.0); BLOOD UREA NITROGEN 11 MG/DL (7-18); CALCIUM LEVEL 7.9 MG/DL (8.8-10.2); CARBON DIOXIDE LEVEL 24 MEQ/L (21-32); CHLORIDE LEVEL 108 MEQ/L (98-107); CREATININE FOR GFR 0.88 MG/DL (0.70-1.30); GLOMERULAR FILTRATION RATE > 60.0 (>42); GLUCOSE, FASTING 196 MG/DL (70-100); POTASSIUM SERUM 3.6 MEQ/L (3.5-5.1); SODIUM LEVEL 141 MEQ/L (136-145); TOTAL PROTEIN 5.3 GM/DL (6.4-8.2)
[2019-06-21] MEDS: SLF 3 ML SYR IV SCH ×3 (06:00→22:00)
[2019-06-21] MEDS: IPRATROPIUM 0.5MG/ALBUTEROL 2.5MG INH SOL UD 3ML (DUONEB)(J7620) NEB SCH ×3 (07:48→20:00)
[2019-06-21 08:14] LABS: HEMATOCRIT 35.7 % (42.0-52.0); HEMOGLOBIN 11.7 g/dl (13.5-17.5); MEAN CORPUSCULAR HEMOGLOBIN 30.5 pg (27.0-33.0); MEAN CORPUSCULAR HGB CONC 32.8 g/dl (32.0-36.5); MEAN CORPUSCULAR VOLUME 93.2 fl (80.0-96.0); RED BLOOD COUNT 3.83 10^6/uL (4.30-6.10); WHITE BLOOD COUNT 6.8 10^3/uL (4.0-10.0)
[2019-06-21 08:58] LABS: PLATELET COUNT, AUTOMATED 96 10^3/uL (150-450)
[2019-06-21] MEDS: TAVALISSE PO SCH ×2 (09:06→21:00)
[2019-06-21] MEDS: ACETAMINOPHEN TAB 650MG DOSE (2X325MG) PO PRN (09:08)
[2019-06-21] MEDS: LISINOPRIL 20 MG TAB PO SCH (09:08)
[2019-06-21] MEDS: BISOPROLOL FUMARATE 10 MG TAB PO SCH (09:08)
[2019-06-21] MEDS: GABAPENTIN 100 MG CAP PO SCH ×2 (09:09→22:13)
[2019-06-21] MEDS: DIVALPROEX 250 MG TAB PO SCH (09:11)
[2019-06-21] MEDS: TAMSULOSIN 0.4 MG CAP PO SCH (09:11)
[2019-06-21] MEDS: FAMOTIDINE 20 MG TAB PO SCH (09:12)
[2019-06-21] MEDS: PRAVASTATIN 20 MG TAB PO SCH (09:13)
[2019-06-21] MEDS: MAGNESIUM CHLORIDE 64 MG TABCR (SLO MAG) PO SCH (09:13)
[2019-06-21] MEDS: POTASSIUM CHLORIDE 10 MEQ SR TABLET PO SCH (09:13)
[2019-06-21] MEDS: HumaLOG INSULIN (NovoLOG) PER UNIT SC SCH ×4 (09:15→21:00)
[2019-06-21] MEDS: DICLOFENAC EPOLAMINE 1.3 % PATCH TOP SCH ×2 (09:15→21:00)
[2019-06-21] MEDS: cefTRIAXone SOD 2 GM in D5W MINI-BAG PLUS 50 ML IV SCH (09:16)
[2019-06-21] MEDS: SANTYL OINT 30GM TOP SCH (09:18)
[2019-06-21] MEDS ORDERED: HALOPERIDOL 5 MG/ML VIAL (J1630) IM ONE (11:45)
[2019-06-21] MEDS ORDERED: LIDOCAINE 1% MDV 20ML VIAL As Ordered ONE (12:14)
[2019-06-21] MEDS ORDERED: SODIUM CHLORIDE 0.9% INJ 10 ML SYR IV PRN (14:15)
[2019-06-21] MEDS: NS 1,000 ML IV SCH (14:24)
[2019-06-21] MEDS: risperiDONE 2 MG TAB PO SCH (18:04)
[2019-06-21] MEDS: SODIUM CHLORIDE 0.9% INJ 10 ML SYR IV SCH (18:04)
[2019-06-21] MEDS: RIVAROXABAN 20 MG TAB (XARELTO) PO SCH (18:04)
[2019-06-21] MEDS: HALOPERIDOL 5 MG/ML VIAL (J1630) IM PRN (22:18)
[2019-06-22] VITALS (7 sets, daily range): BP systolic 121–170; BP diastolic 75–95
[2019-06-22] MEDS: VANCOMYCIN HCL 1,000 MG, VIAL MATE ADAPTER 1 EACH in D5W 250 ML IV SCH ×2 (01:08→11:51)
[2019-06-22] MEDS: HALOPERIDOL 5 MG/ML VIAL (J1630) IM PRN (03:59)
[2019-06-22] MEDS: SODIUM CHLORIDE 0.9% INJ 10 ML SYR IV SCH ×2 (05:41→18:20)
[2019-06-22] MEDS: SLF 3 ML SYR IV SCH ×2 (05:42→14:00)
[2019-06-22 06:28] LABS: ALBUMIN 2.1 GM/DL (3.2-5.2); ALT/SGPT 15 U/L (12-78); BILIRUBIN,TOTAL 0.3 MG/DL (0.2-1.0); BLOOD UREA NITROGEN 8 MG/DL (7-18); CALCIUM LEVEL 8.7 MG/DL (8.8-10.2); CARBON DIOXIDE LEVEL 25 MEQ/L (21-32); CHLORIDE LEVEL 107 MEQ/L (98-107); CREATININE FOR GFR 0.83 MG/DL (0.70-1.30); GLOMERULAR FILTRATION RATE > 60.0 (>42); GLUCOSE, FASTING 185 MG/DL (70-100); POTASSIUM SERUM 3.5 MEQ/L (3.5-5.1); SODIUM LEVEL 139 MEQ/L (136-145); TOTAL PROTEIN 5.7 GM/DL (6.4-8.2); TROPONIN I < 0.02 NG/ML (< 0.10)
[2019-06-22] MEDS: HumaLOG INSULIN (NovoLOG) PER UNIT SC SCH ×4 (07:30→20:34)
[2019-06-22] MEDS: IPRATROPIUM 0.5MG/ALBUTEROL 2.5MG INH SOL UD 3ML (DUONEB)(J7620) NEB SCH ×3 (07:50→19:25)
[2019-06-22] MEDS: cefTRIAXone SOD 2 GM in D5W MINI-BAG PLUS 50 ML IV SCH (09:39)
[2019-06-22] MEDS: DIVALPROEX 250 MG TAB PO SCH (09:41)
[2019-06-22] MEDS: GABAPENTIN 100 MG CAP PO SCH (09:41)
[2019-06-22] MEDS: TAMSULOSIN 0.4 MG CAP PO SCH (09:41)
[2019-06-22] MEDS: FAMOTIDINE 20 MG TAB PO SCH (09:42)
[2019-06-22] MEDS: PRAVASTATIN 20 MG TAB PO SCH (09:43)
[2019-06-22] MEDS: TAVALISSE PO SCH ×2 (09:43→21:00)
[2019-06-22] MEDS: BISOPROLOL FUMARATE 10 MG TAB PO SCH (09:48)
[2019-06-22] MEDS: LISINOPRIL 20 MG TAB PO SCH (09:48)
[2019-06-22] MEDS: DICLOFENAC EPOLAMINE 1.3 % PATCH TOP SCH ×2 (09:49→21:09)
[2019-06-22] MEDS: SANTYL OINT 30GM TOP SCH (09:49)
[2019-06-22] MEDS: NS 1,000 ML IV SCH (09:50)
--- NOTE | 2019-06-22 09:50 | IPNPDOC ---
Subjective Date Seen The patient was seen on 06/22/19. Subjective Chief Complaint/HPI confused. reported CP early this am. Constitutional: Denies: Chills ENT: Denies: Head Aches Pulmonary: Denies: Dyspnea, Cough Cardiovascular: Denies: Chest Pain (no pain at this time.), Palpitations, Orthopnea Gastrointestinal: Reports: Nausea Hematologic: Denies: Bruising Musculoskeletal: Reports: Shoulder Pain (right, chronic) Neurological: Reports: Incoordination, Confusion (varied but has been more or less confused continuously since admission.); Denies: Weakness Objective Physical Examination General Exam: Positive: No Acute Distress; Negative: Alert (communicating, speech clear) Eye Exam: Positive: PERRLA, Conjunctiva & lids normal Neck Exam: Positive: Supple; Negative: thyromegaly Chest Exam: Positive: Clear to auscultation, Normal air movement Heart Exam: Positive: Rate Normal, Regular Rhythm, Normal S1, Normal S2; Negative: Murmurs, Rubs Abdomen Exam: Positive: Normal bowel sounds, Soft; Negative: Tenderness, Hepatospenomegaly Extremity Exam: Positive: Edema (trace BLE edema), Normal pulses; Negative: Clubbing, Cyanosis Skin Exam: Positive: Other skin issue (wounds are improving.) Psych Exam: Negative: Mental status NL (confused about location and recent events. recognizes me and his who is present in his room at this time.), Mood NL (tells me that he wants to , that he has had a full life and doesn't want to spend the rest of his life taking pills, he wants to go home so no one is telling him what to do and take.) Assessment /Plan Problems (1) Dementia Status: Chronic Problem Text: 06/22: overall not better since change of risperdol dose to 2m. still requires intermittent Haloperidol due to combativeness. Looks restless. Will titrate dose of gabapentin. 06/20/19: Increase Risper to 2 mg q 1600. Continue with Depakote 250mg q day. Haldol prn agitation. Sitter remains at bedside 06/18/19: Risper increased to 1mg po bid. Depakote 250 mg po daily added to current regimen. He continues to have a sitter at bedside 06/17/19: Patient appears more cooperative this morning. Per nursing, patient continues to have periods of agitation and aggression. We will increase Risper to 0.5mg po bid chronic c IED (favor FTD)-relatively stable on risper 0.25 BID c halo 1 q1H prn goal in short-term per patient/ to dc home Contingency: parox to reduce disinhibition; risper to quet if EPS se 06/16 long dw again who wants px home (at least for as long as his dementia permits), she will be off 06/17, 06/18 and would like to dc px home on 06/18 06/14 given sedation in late PM (although had been very agitated in AM), Neuro checked CT head NAD and changed risper to aripip 2 BID (given a partial DA agonist, would given low impulse control), but worst-ever agitation 06/15 AM requiring IM halo 1 x 1; therefore, changed back to risper and dced dulox 20 QHS (had been started for chronic pain) 06/11 + risper 0.25 BID PFS addressed options for home safety c /family 06/11/19 CT head NAD (2) Fever Status: Acute Response to Treatment: Stable, Improving Problem Text: 06/22/ MSSA bacteremia in presence of aortic bioprothetic valve. Will require long antibiotic course. Changed to Rocephin yesterday when culture confirmed MSSA. 06/20/19: Afebrile. BC, urine, and wound cultures pending. Prelim BC on 06/18/19 with gram positive cocci in clusters. Patient is on Day #2 of Vancomycin and Meropenem, WBC 7.4 (3) Cerebrovascular accident, embolic Status: Acute Problem Text: 06/22: continue to show dementia features c/w multi-infarct pauly ia. 06/14 changed LMWH to rivarox 06/13 presumptive AF, but none documented since admission on tele; long dw who will attempt to arrange 12/06 coverage for px to dc home 06/13 given embolic CVA; restart tele, + therapeutic LMWH 06/13/19 MRA brain/carotids s significant stenosis 06/13/19 MRI brain: Numerous small foci of restricted diffusion with associated ADC dropout throughout the bilateral cerebral hemispheres, measuring up to 11 x 8 mm in the right occipital lobe. (not appreciated by 06/11 CT head) 06/10 TTE: 1. Normal appearing and well seated aortic valve bioprosthesis. No aortic stenosis or regurgitation. 2. Mild concentric left ventricle hypertrophy. Normal regional left ventricular (LV) wall motion and wall thickening. Normal LV systolic function. Left ventricular ejection fraction (LVEF) 70% by visual estimate. Grade 1 LV diastolic dysfunction. Normal left atrial size and left atrial volume index. 3. Moderate mitral annular calcification. No mitral regurgitation or stenosis. 4. Normal right ventricle size and systolic function. (4) HTN (hypertension) Status: Chronic Problem Text: 06/20/19: Remains stable stable on HD lisin 20, 06/13 SBP 220; therefore, restarted lisin 20 QD off HD fur 20 TID (5) Ataxia Status: Chronic Problem Text: 06/14 now safe per PT to dc home c services was NOT ARU candidate 2 (6) Syncope Status: Acute Problem Specific Plan: Consult Specialist Problem Text: as per CVA (7) Diabetes mellitus Status: Chronic Problem Text: 06/20/19: Sliding scale coverage. BG 152 this morning 06/17/19: Per sliding scale coverage HD glar 40, 05/2019 A1C 9.4 BG mid 100s c solely SSLI (8) Thrombocytopenia Status: Acute Problem Text: 06/22/ still adequate platelet count but difficult to sustain dosing of his Tavalisse due to dementia. 06/20/19: Plts fluctuate, 96 this morning 06/17/19: Plt 116 today remains on fostamatinib (in place of GC) per Dr. Lamb caution now on DOAC 06/16 stable at 127K (9) PVD (peripheral vascular disease) Status: Chronic Problem Text: 06/10/19 BLE art US The there is diffuse atheromatous plaque bilaterally. On the right there is stenosis from the mid to distal SFA and stenosis in the distal GRINDER SET UP OPERATOR SURFACE. On the left there is stenosis in the distal SFA and stenosis in the proximal GRINDER SET UP OPERATOR SURFACE. (10) Chronic wound of extremity Status: Chronic Problem Text: 06/22: improving. 06/17/19: Dressing changes per Dr. Sanchez's recommendations per Laura: continued Vashe wound cleanser QD covered then with Santyl nickel thick and a foam dressing. Dressing changes can be on an every other day basis. Tubigrip stockings should be utilized BLE (11) Hx of aortic valve replacement Status: Chronic Problem Text: 06/20/19: Last ECHO 06/13/19 CONCLUSIONS: 1. Normal appearing and well seated aortic valve bioprosthesis. No aortic stenosis or regurgitation. 2. Mild concentric left ventricle hypertrophy. Normal regional left ventricular (LV) wall motion and wall thickening. Normal LV systolic function. Left ventricular ejection fraction (LVEF) 70% by visual estimate. Grade 1 LV diastolic dysfunction. Normal left atrial size and left atrial volume index. 3. Moderate mitral annular calcification. No mitral regurgitation or stenosis. 4. Normal right ventricle size and systolic function. Plan/VTE VTE Prophylaxis Ordered?: Yes (Xarelto ) VTE Exclusion Pharmacological: Thrombocytopenia Plan Anticipated Discharge: Half-Way VS, I&O, 24H, Fishbone Vital Signs/I&O Vital Signs Date Time Temp Pulse Resp B/P (MAP) Pulse Ox O2 Delivery O2 Flow Rate FiO2 06/22/19 06:00 97.6 94 18 140/75 (96) 95 I&O- Last 24 Hours up to 6 AM 06/22/19 06:00 Intake Total 2310 ml Output Total 1250 ml Balance 1060 ml Laboratory Data 24H LABS Laboratory Tests 2 06/21/19 11:55: Bedside Glucose (Misc Panel) 251H 06/21/19 16:33: Bedside Glucose (Misc Panel) 286H 06/21/19 16:52: Vancomycin Level Trough 17.8 06/21/19 20:22: Bedside Glucose (Misc Panel) 206H 06/22/19 05:39: Anion Gap 7L, Glomerular Filtration Rate > 60.0, Blood Urea Nitrogen 8, Creatinine 0.83, Sodium Level 139, Potassium Level 3.5, Chloride Level 107, Carbon Dioxide Level 25, Calcium Level 8.7L, Aspartate Amino Transf (AST/SGOT) 19, Alanine Aminotransferase (ALT/SGPT) 15, Alkaline Phosphatase 117, Total Bilirubin 0.3, Total Protein 5.7L, Albumin 2.1L, Troponin I < 0.02, Albumin/Globulin Ratio 0.58L CBC/BMP Laboratory Tests 06/22/19 05:39 Calcium Level 8.7 L, Aspartate Amino Transf (AST/SGOT) 19, Alanine Aminotransfe rase (ALT/SGPT) 15, Alkaline Phosphatase 117, Total Bilirubin 0.3, Total Protein 5.7 L, Albumin 2.1 L Microbiology Microbiology 06/19/19 Blood Culture - Preliminary, Resulted No Growth after 48 hours. All Specime... 06/19/19 Blood Culture - Final, Complete Staphylococcus Aureus 06/18/19 Blood Culture - Final, Complete Staphylococcus Aureus 06/18/19 Urine Culture - Final, Complete 06/18/19 Gram Stain - Final, Complete 06/18/19 Wound Culture - Final, Complete Blaine Byrd MD Jun 22, 2019 09:50
--- NOTE | 2019-06-22 10:10 | IPN ---
DATE: 06/22/2019 SUBJECTIVE: Patient is more alert. He is conversant, although clearly not oriented. He has been somewhat more cooperative today, did not require medication with Haldol this morning. Vital signs show a pulse of 87-91. No fever, 98.1. Blood pressure 144/77. Pulse ox 97% room air. Lungs clear. No murmurs noted. Abdomen soft. No tenderness, guarding or rebound. Skin wounds are healing. Discussion today with spouse regarding advantages of the PICC line considering he does have staph aureus bacteremia and a bioprosthetic valve in the aortic position and in this combination only prolonged antibiotic therapy and she agrees to proceed with PICC. He will be premedicated with haloperidol before this to enable cooperation because of his confused and intermittently combative state. ASSESSMENT: Multi-infarct dementia. Staphylococcus Aureus Methicillin-sensitive bacteremia. Aortic valve replacement many years ago. Hypertension. PLAN: PICC line today. Cultures are back. Therefore we can change his antibiotic to Rocephin 2 grams daily. Plan prolonged antibiotic course. Will consult ID once the specialist is available next week. Reviewed his case with Dr. Chester of the cardiology service who agrees that LEVON would not materially add to his care at this point, so will not be done at that this time.
[2019-06-22] MEDS: POTASSIUM CHLORIDE 10 MEQ SR TABLET PO SCH (10:23)
[2019-06-22] MEDS: MAGNESIUM CHLORIDE 64 MG TABCR (SLO MAG) PO SCH (10:23)
[2019-06-22] MEDS: risperiDONE 2 MG TAB PO SCH (16:32)
[2019-06-22] MEDS: PANTOPRAZOLE 40MG TAB (PROTONIX) PO SCH (18:20)
[2019-06-22] MEDS: RIVAROXABAN 20 MG TAB (XARELTO) PO SCH (18:20)
--- NOTE | 2019-06-22 19:54 | ECGEPIP ---
[facility] Test Date: 2019-06-22 Pat Name: OMID JACKSON Department: Room: [place] [address] Gender: Male Electronic Court Recorder: : [id number] Requested By: Cristi RUTH Order Number: [id number] Reading MD: Shankar Hinton Measurements Intervals [place] Rate: 87 P: 45 DC: 177 QRS: -36 QRSD: 86 T: 47 QT: 356 QTc: 431 Interpretive Statements SINUS RHYTHM WITH SINUS ARRHYTHMIA MARKED LEFT AXIS DEVIATION POSSIBLE RIGHT VENTRICULAR CONDUCTION DELAY POSSIBLE ANTERIOR MYOCARDIAL INFARCTION, OF INDETERMINATE AGE Similar to tracing done 06-08-19 but with more artifact Electronically Signed on 06-22-2019 19:53:40 EDT by Shankar Hinton
[2019-06-22] MEDS: GABAPENTIN 300 MG CAP PO SCH (21:00)
[2019-06-23 02:00] VITALS: BP 123/67
[2019-06-23] MEDS: NS 1,000 ML IV SCH ×2 (03:47→20:28)
[2019-06-23] MEDS: SODIUM CHLORIDE 0.9% INJ 10 ML SYR IV SCH ×2 (05:24→20:16)
[2019-06-23 06:00] VITALS: BP 115/76
[2019-06-23 06:05] LABS: HEMATOCRIT 33.5 % (42.0-52.0); HEMOGLOBIN 10.7 g/dl (13.5-17.5); MEAN CORPUSCULAR HEMOGLOBIN 29.7 pg (27.0-33.0); MEAN CORPUSCULAR HGB CONC 31.9 g/dl (32.0-36.5); MEAN CORPUSCULAR VOLUME 93.1 fl (80.0-96.0); PLATELET COUNT, AUTOMATED 136 10^3/uL (150-450); WHITE BLOOD COUNT 5.2 10^3/uL (4.0-10.0)
[2019-06-23 06:16] LABS: BLOOD UREA NITROGEN 7 MG/DL (7-18); CALCIUM LEVEL 8.5 MG/DL (8.8-10.2); CARBON DIOXIDE LEVEL 24 MEQ/L (21-32); CHLORIDE LEVEL 110 MEQ/L (98-107); GLOMERULAR FILTRATION RATE > 60.0 (>42); GLUCOSE, FASTING 143 MG/DL (70-100); MAGNESIUM LEVEL 1.8 MG/DL (1.8-2.4); POTASSIUM SERUM 3.5 MEQ/L (3.5-5.1); SODIUM LEVEL 143 MEQ/L (136-145)
[2019-06-23] MEDS: IPRATROPIUM 0.5MG/ALBUTEROL 2.5MG INH SOL UD 3ML (DUONEB)(J7620) NEB SCH ×3 (07:14→20:00)
[2019-06-23] MEDS: HumaLOG INSULIN (NovoLOG) PER UNIT SC SCH ×4 (07:30→21:00)
--- NOTE | 2019-06-23 10:25 | REP ---
Clinical: Altered mental status. Comparison: 06/11/2019 Findings: Age-related atrophy and microvascular ischemic changes are appreciated. The ventricles and sulci are symmetric. Etienne-white differentiation is maintained. There is no evidence for acute intracranial hemorrhage, mass/mass effect, pathology or infarction. No extra-axial fluid collection. Calvarium is intact. Impression: Age related atrophy and microvascular ischemic changes. No acute intracranial hemorrhage, infarction, or mass/mass effect. Electronically Signed by Sergio Olmedo MD 06/23/2019 10:16 A
[2019-06-23] MEDS: cefTRIAXone SOD 2 GM in D5W MINI-BAG PLUS 50 ML IV SCH (10:37)
[2019-06-23] MEDS: PRAVASTATIN 20 MG TAB PO SCH (10:37)
[2019-06-23] MEDS: FAMOTIDINE 20 MG TAB PO SCH (10:38)
[2019-06-23] MEDS: LISINOPRIL 20 MG TAB PO SCH (10:41)
[2019-06-23] MEDS: TAVALISSE PO SCH ×2 (10:42→20:14)
[2019-06-23] MEDS: GABAPENTIN 300 MG CAP PO SCH ×2 (10:42→20:15)
[2019-06-23] MEDS: DICLOFENAC EPOLAMINE 1.3 % PATCH TOP SCH ×2 (10:43→20:16)
[2019-06-23] MEDS: BISOPROLOL FUMARATE 10 MG TAB PO SCH (10:43)
[2019-06-23] MEDS: MAGNESIUM CHLORIDE 64 MG TABCR (SLO MAG) PO SCH (10:58)
[2019-06-23] MEDS: POTASSIUM CHLORIDE 10 MEQ SR TABLET PO SCH (10:58)
[2019-06-23] MEDS: DIVALPROEX 250 MG TAB PO SCH (11:01)
[2019-06-23] MEDS: TAMSULOSIN 0.4 MG CAP PO SCH (11:01)
--- NOTE | 2019-06-23 12:18 | IPNPDOC ---
Subjective Date Seen The patient was seen on 06/23/19. Subjective Chief Complaint/HPI unresponsive initially, now answering simple questions responsive smile with . General: Reports: ROS Unobtainable Objective Physical Examination General Exam: Positive: No Acute Distress; Negative: Alert (communicating, speech clear) Eye Exam: Positive: PERRLA, Conjunctiva & lids normal Neck Exam: Positive: Supple; Negative: thyromegaly Chest Exam: Positive: Clear to auscultation, Normal air movement Heart Exam: Positive: Rate Normal, Regular Rhythm, Normal S1, Normal S2; Negative: Murmurs, Rubs Abdomen Exam: Positive: Normal bowel sounds, Soft; Negative: Tenderness, Hepatospenomegaly Extremity Exam: Positive: Edema (trace BLE edema), Normal pulses; Negative: Clubbing, Cyanosis Skin Exam: Positive: Other skin issue (wounds are improving.) Neuro Exam: Positive: Other (marked rigidity of leg muscles this am. couldn't passively flex hips or knees. shallow grunting respirations noted. now resolved, normal muscle tone relaxed.) Psych Exam: Negative: Mental status NL (confused about location and recent events. recognizes me and his who is present in his room at this time.), Mood NL (tells me that he wants to , that he has had a full life and doesn't want to spend the rest of his life taking pills, he wants to go home so no one is telling him what to do and take.) Assessment /Plan Problems (1) Dementia Status: Chronic Problem Text: 06/23: rigid this am, now relatively at ease, spontaneous movements of head and eyes. responsive smile. question tonic seizure vs side effects from anti-psychotic. CT brain shows no change, will request f/u Neuro consult. Dr. Santamaria recommends starting levetiracetam 500mg bid and repeat MRI 06/22: overall not better since change of risperdol dose to 2m. still requires intermittent Haloperidol due to combativeness. Looks restless. Will titrate dose of gabapentin. 06/20/19: Increase Risper to 2 mg q 1600. Continue with Depakote 250mg q day. Haldol prn agitation. Sitter remains at bedside 06/18/19: Risper increased to 1mg po bid. Depakote 250 mg po daily added to current regimen. He continues to have a sitter at bedside 06/17/19: Patient appears more cooperative this morning. Per nursing, patient continues to have periods of agitation and aggression. We will increase Risper to 0.5mg po bid chronic c IED (favor FTD)-relatively stable on risper 0.25 BID c halo 1 q1H prn goal in short-term per patient/ to dc home Contingency: parox to reduce disinhibition; risper to quet if EPS se 06/16 long dw again who wants px home (at least for as long as his dementia permits), she will be off 06/17, 06/18 and would like to dc px home on 06/18 06/14 given sedation in late PM (although had been very agitated in AM), Neuro checked CT head NAD and changed risper to aripip 2 BID (given a partial DA agonist, would given low impulse control), but worst-ever agitation 06/15 AM requiring IM halo 1 x 1; therefore, changed back to risper and dced dulox 20 QHS (had been started for chronic pain) 06/11 + risper 0.25 BID PFS addressed options for home safety c /family 06/11/19 CT head NAD (2) Fever Status: Acute Response to Treatment: Stable, Improving Problem Text: 06/22/ MSSA bacteremia in presence of aortic bioprothetic valve. Will require long antibiotic course. Changed to Rocephin yesterday when culture confirmed MSSA. 06/20/19: Afebrile. BC, urine, and wound cultures pending. Prelim BC on 06/18/19 with gram positive cocci in clusters. Patient is on Day #2 of Vancomycin and Meropenem, WBC 7.4 (3) Cerebrovascular accident, embolic Status: Acute Problem Text: 06/23: due to strong suspicion for septic emboli (mri findings and positive blood culture for S aureus) and absent confirmation of Afib, and concern expressed by Dr. Santamaria for prudence of anticoagulation in the setting of septic emboli, will stop Eliquis. 06/22: continue to show dementia features c/w multi-infarct dementia. 06/14 changed LMWH to rivarox 06/13 presumptive AF, but none documented since admission on tele; long dw who will attempt to arrange 24/7 coverage for px to dc home 06/13 given embolic CVA; restart tele, + therapeutic LMWH 06/13/19 MRA brain/carotids s significant stenosis 06/13/19 MRI brain: Numerous small foci of restricted diffusion with associated ADC dropout throughout the bilateral cerebral hemispheres, measuring up to 11 x 8 mm in the right occipital lobe. (not appreciated by 06/11 CT head) 06/10 TTE: 1. Normal appearing and well seated aortic valve bioprosthesis. No aortic stenosis or regurgitation. 2. Mild concentric left ventricle hypertrophy. Normal regional left ventricular (LV) wall motion and wall thickening. Normal LV systolic function. Left ventricular ejection fraction (LVEF) 70% by visual estimate. Grade 1 LV diastolic dysfunction. Normal left atrial size and left atrial volume index. 3. Moderate mitral annular calcification. No mitral regurgitation or stenosis. 4. Normal right ventricle size and systolic function. (4) HTN (hypertension) Status: Chronic Problem Text: 06/20/19: Remains stable stable on HD lisin 20, 06/13 SBP 220; therefore, restarted lisin 20 QD off HD fur 20 TID (5) Ataxia Status: Chronic Problem Text: 06/14 now safe per PT to dc home c services was NOT ARU candidate 2 (6) Syncope Status: Acute Problem Specific Plan: Consult Specialist Problem Text: as per CVA (7) Diabetes mellitus Status: Chronic Problem Text: 06/20/19: Sliding scale coverage. BG 152 this morning 06/17/19: Per sliding scale coverage HD glar 40, 05/2019 A1C 9.4 BG mid 100s c solely SSLI (8) Thrombocytopenia Status: Acute Problem Text: 06/22/ still adequate platelet count but difficult to sustain dosing of his Tavalisse due to dementia. 06/20/19: Plts fluctuate, 96 this morning 06/17/19: Plt 116 today remains on fostamatinib (in place of GC) per Dr. Lamb caution now on DOAC 06/16 stable at 127K (9) PVD (peripheral vascular disease) Status: Chronic Problem Text: 06/10/19 BLE art US The there is diffuse atheromatous plaque bilaterally. On the right there is stenosis from the mid to distal SFA and stenosis in the distal STOCK PREPARER. On the left there is stenosis in the distal SFA and stenosis in the proximal STOCK PREPARER. (10) Chronic wound of extremity Status: Chronic Problem Text: 06/22: improving. 06/17/19: Dressing changes per Dr. Sanchez's recommendations per Laura: continued Vashe wound cleanser QD covered then with Santyl nickel thick and a foam dressing. Dressing changes can be on an every other day basis. Tubigrip stockings should be utilized BLE (11) Hx of aortic valve replacement Status: Chronic Problem Text: 06/20/19: Last ECHO 06/13/19 CONCLUSIONS: 1. Normal appearing and well seated aortic valve bioprosthesis. No aortic stenosis or regurgitation. 2. Mild concentric left ventricle hypertrophy. Normal regional left ventricular (LV) wall motion and wall thickening. Normal LV systolic function. Left ventricular ejection fraction (LVEF) 70% by visual estimate. Grade 1 LV diastolic dysfunction. Normal left atrial size and left atrial volume index. 3. Moderate mitral annular calcification. No mitral regurgitation or stenosis. 4. Normal right ventricle size and systolic function. Plan/VTE VTE Prophylaxis Ordered?: Yes (Xarelto ) VTE Exclusion Pharmacological: Thrombocytopenia Plan Anticipated Discharge: Intermediate VS, I&O, 24H, [facility] Vital Signs/I&O Vital Signs Date Time Temp Pulse Resp B/P (MAP) Pulse Ox O2 Delivery O2 Flow Rate FiO2 06/23/19 10:43 77 135/65 06/23/19 06:00 97.0 18 97 I&O- Last 24 Hours up to 6 AM 06/23/19 06:00 Intake Total 720 ml Output Total 1900 ml Balance -1180 ml Laboratory Data 24H LABS Laboratory Tests 2 06/22/19 16:38: Bedside Glucose (Misc Panel) 153H 06/22/19 20:17: Bedside Glucose (Misc Panel) 168H 06/23/19 05:28: Nucleated Red Blood Cells % (auto) 0.0, Anion Gap 9, Glomerular Filtration Rate > 60.0, Blood Urea Nitrogen 7, Creatinine 0.70, Sodium Level 143, Potassium Level 3.5, Chloride Level 110H, Carbon Dioxide Level 24, Calcium Level 8.5L, Magnesium Level 1.8 06/23/19 11:37: Bedside Glucose (Misc Panel) 180H CBC/BMP Laboratory Tests 06/23/19 05:28 Red Blood Count 3.60 L, Mean Corpuscular Volume 93.1, Mean Corpuscular Hemoglobin 29.7, Mean Corpuscular Hemoglobin Concent 31.9 L, Red Cell Distribution Width 13.6, Calcium Level 8.5 L Microbiology Microbiology 06/19/19 Blood Culture - Preliminary, Resulted No Growth after 72 hours. All specime... 06/19/19 Blood Culture - Final, Complete Staphylococcus Aureus 06/18/19 Blood Culture - Final, Complete Staphylococcus Aureus 06/18/19 Urine Culture - Final, Complete 06/18/19 Gram Stain - Final, Complete 06/18/19 Wound Culture - Final, Complete Blaine Byrd MD Jun 23, 2019 12:17
[2019-06-23 14:00] VITALS: BP 115/64
--- NOTE | 2019-06-23 14:51 | REPVR ---
EXAM: MR Head Without Contrast EXAM DATE/TIME: 06/23/2019 1:38 PM CLINICAL HISTORY: 79 years old, male; Alteration of consciousness and altered mental status/memory loss and syncope and collapse; Transient alteration of awareness; Confusion or disorientation; Patient HX: Patient has been going down hill in the last three days today he is even worse to the point he not even moving his legs; Additional info: Change in mental status TECHNIQUE: Imaging protocol: MR of the head without contrast. COMPARISON: MRI-Brain without Contrast 06/13/2019 3:11 PM FINDINGS: Brain: Foci true diffusion restriction in the right anterior cerebellum as well as left temporal periventricular white matter consistent with focal, acute infarcts. Scattered foci of increased signal intensity on the DWI sequence in the deep white matter of both cerebral hemispheres most likely representing additional recent acute or subacute infarcts which are difficult to evaluate on the ADC map given confounding T2 shine-through related to confluent regional chronic small vessel ischemic disease. There is a small, subacute right occipital cortical infarct; increased signal intensity on the DWI sequence, essentially isointense signal on ADC map and T2 hyperintensity. The brain demonstrates generalized volume loss. Patchy increased signal intensity in the deep and subcortical white matter as well as rachel on T2-weighted imaging most likely representing chronic small vessel ischemic change. A focal, chronic lateral right occipital infarct. A few focal, chronic right cerebellar infarcts. A small, chronic right parietooccipital infarct demonstrates T2 shine through on the DWI sequence. The infarcts do not demonstrate hemorrhagic conversion. Ventricles: The ventricles appear enlarged in keeping with volume loss. Bones/joints: Unremarkable. Soft tissues: Normal. Sinuses: Mild, chronic pansinusitis. No acute sinusitis. Mastoid air cells: Trace mastoid fluid. Orbits: Unremarkable. IMPRESSION: Focal and small recent acute to subacute infarcts in more than one vascular territory, presumably embolic: right cerebellum, left temporal deep white matter, bilateral periventricular deep white matter. Electronically signed by: Ange Davis On 06/23/2019 14:51:32 PM
[2019-06-23] MEDS: levETIRAcetam 250MG TABLET (KEPPRA) PO SCH ×2 (15:40→20:15)
[2019-06-23 18:00] VITALS: BP 145/70
[2019-06-23] MEDS: RIVAROXABAN 20 MG TAB (XARELTO) PO SCH (20:28)
[2019-06-23 22:00] VITALS: BP 125/64
[2019-06-24 02:00] VITALS: BP 137/82
[2019-06-24] MEDS: SODIUM CHLORIDE 0.9% INJ 10 ML SYR IV SCH ×2 (05:08→18:40)
[2019-06-24 06:00] VITALS: BP 121/66
[2019-06-24] MEDS: HumaLOG INSULIN (NovoLOG) PER UNIT SC SCH ×4 (07:30→21:00)
[2019-06-24] MEDS: IPRATROPIUM 0.5MG/ALBUTEROL 2.5MG INH SOL UD 3ML (DUONEB)(J7620) NEB SCH ×3 (08:00→20:00)
[2019-06-24] MEDS: GABAPENTIN 300 MG CAP PO SCH ×2 (08:53→21:19)
[2019-06-24] MEDS: FAMOTIDINE 20 MG TAB PO SCH (08:53)
[2019-06-24] MEDS: cefTRIAXone SOD 2 GM in D5W MINI-BAG PLUS 50 ML IV SCH (08:53)
[2019-06-24] MEDS: levETIRAcetam 250MG TABLET (KEPPRA) PO SCH ×2 (08:53→21:19)
[2019-06-24] MEDS: DIVALPROEX 250 MG TAB PO SCH (08:53)
[2019-06-24] MEDS: PRAVASTATIN 20 MG TAB PO SCH (08:54)
[2019-06-24] MEDS: LISINOPRIL 20 MG TAB PO SCH (08:54)
[2019-06-24] MEDS: MAGNESIUM CHLORIDE 64 MG TABCR (SLO MAG) PO SCH (08:54)
[2019-06-24] MEDS: TAMSULOSIN 0.4 MG CAP PO SCH (08:54)
[2019-06-24] MEDS: TAVALISSE PO SCH ×2 (08:54→21:19)
[2019-06-24] MEDS: POTASSIUM CHLORIDE 10 MEQ SR TABLET PO SCH (08:54)
[2019-06-24] MEDS: DICLOFENAC EPOLAMINE 1.3 % PATCH TOP SCH ×2 (08:55→21:18)
[2019-06-24] MEDS: BISOPROLOL FUMARATE 10 MG TAB PO SCH (08:55)
--- NOTE | 2019-06-24 09:39 | IPNPDOC ---
Subjective Date Seen The patient was seen on 06/24/19. Subjective Chief Complaint/HPI MS changes Events since last encounter Started on Anti-epileptic yesterday due to seizure like activity. weaning down on sedatives due to inability to arouse patient. Has improved behavior today. MRI with new acute emboli. Skin: Denies: Rash, Lesions, Breakdown Pulmonary: Denies: Dyspnea, Cough Cardiovascular: Denies: Chest Pain, Palpitations, Orthopnea, Paroxysmal Noc. Dyspnea, Lt Headedness Objective Physical Examination General Exam: Positive: Alert (communicating, speech clear: pleasantly confused), No Acute Distress Eye Exam: Positive: PERRLA, Conjunctiva & lids normal Neck Exam: Positive: Supple; Negative: thyromegaly Chest Exam: Positive: Clear to auscultation, Normal air movement Heart Exam: Positive: Rate Normal, Regular Rhythm, Normal S1, Normal S2; Negative: Murmurs, Rubs Abdomen Exam: Positive: Normal bowel sounds, Soft; Negative: Tenderness, Hepatospenomegaly Extremity Exam: Positive: Normal pulses; Negative: Clubbing, Cyanosis, Edema Skin Exam: Positive: Other skin issue (wounds are improving.) Neuro Exam: Positive: Other (alert to self and family. ) Psych Exam: Negative: Mental status NL (confused about location and recent events. recognizes me and his who is present in his room at this time.), Mood NL (tells me that he wants to , that he has had a full life and doesn't want to spend the rest of his life taking pills, he wants to go home so no one is telling him what to do and take.) Assessment /Plan Problems (1) MSSA (methicillin susceptible Staphylococcus aureus) Status: Acute Problem Text: D1/42 cefazolin (given ho AVR) 06/21 sp R PICC tc LEVON if condition stabilizes 06/24 repeat TTE 06/25 BCX P 06/24 BCX P 06/18 BCX / MSSA-06/21 + ceftriaxone 2 gm QD (2) Seizure-like activity Status: Acute Problem Text: no further rigidity 06/24 generalized rigidity cw TC sz activity; therefore, + leve 500 BID-favor 2 new emboli (3) Dementia Status: Chronic Problem Text: 06/24/19: MRI reviewed with patient, and daughter. they are agreeable to repeat blood cultures, echo and labs. ID consult placed. No significant intervention unless reviewed with . Other daughter coming to soon and disposition will be reviewed at that time. patient remains DNR/DNI 06/23: rigid this am, now relatively at ease, spontaneous movements of head and eyes. responsive smile. question tonic seizure vs side effects from anti-psyc hotic. CT brain shows no change, will request f/u Neuro consult. Dr. Santamaria recommends starting levetiracetam 500mg bid and repeat MRI 06/22: overall not better since change of risperdol dose to 2m. still requires intermittent Haloperidol due to combativeness. Looks restless. Will titrate dose of gabapentin. 06/20/19: Increase Risper to 2 mg q 1600. Continue with Depakote 250mg q day. Haldol prn agitation. Sitter remains at bedside 06/18/19: Risper increased to 1mg po bid. Depakote 250 mg po daily added to current regimen. He continues to have a sitter at bedside 06/17/19: Patient appears more cooperative this morning. Per nursing, patient continues to have periods of agitation and aggression. We will increase Risper to 0.5mg po bid chronic sundowning c IED (favor FTD)-relatively stable on risper 0.25 BID c halo 1 q1H prn goal in short-term per patient/ to dc home Contingency: parox to reduce disinhibition; risper to quet if EPS se 06/16 long dw again who wants px home (at least for as long as his dementia permits), she will be off 06/17, 06/18 and would like to dc px home on 06/18 06/14 given sedation in late PM (although had been very agitated in AM), Neuro checked CT head NAD and changed risper to aripip 2 BID (given a partial DA agonist, would given low impulse control), but worst-ever agitation 06/15 AM requiring IM halo 1 x 1; therefore, changed back to risper and dced dulox 20 QHS (had been started for chronic pain) 06/11 + risper 0.25 BID PFS addressed options for home safety c /family 06/11/19 CT head NAD (4) Fever Status: Acute Response to Treatment: Stable, Improving (5) Cerebrovascular accident, embolic Status: Acute Problem Text: 06/23: due to strong suspicion for septic emboli (mri findings and positive blood culture for S aureus) and absent confirmation of Afib, and concern expressed by Dr. 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 06/14 changed LMWH to rivarox 06/13 presumptive AF, but none documented since admission on tele; long dw who will attempt to arrange 12/06 coverage for px to dc home 06/13 given embolic CVA; restart tele, + therapeutic LMWH 06/13/19 MRA brain/carotids s significant stenosis 06/13/19 MRI brain: Numerous small foci of restricted diffusion with associated ADC dropout throughout the bilateral cerebral hemispheres, measuring up to 11 x 8 mm in the right occipital lobe. (not appreciated by 06/11 CT head) 06/10 TTE: 1. Normal appearing and well seated aortic valve bioprosthesis. No aortic stenosis or regurgitation. 2. Mild concentric left ventricle hypertrophy. Normal regional left ventricular (LV) wall motion and wall thickening. Normal LV systolic function. Left ventricular ejection fraction (LVEF) 70% by visual estimate. Grade 1 LV diastolic dysfunction. Normal left atrial size and left atrial volume index. 3. Moderate mitral annular calcification. No mitral regurgitation or stenosis. 4. Normal right ventricle size and systolic function. (6) HTN (hypertension) Status: Chronic Problem Text: 06/20/19: Remains stable stable on HD lisin 20, 06/13 SBP 220; therefore, restarted lisin 20 QD off HD fur 20 TID (7) Ataxia Status: Chronic Problem Text: 06/14 now safe per PT to dc home c services was NOT ARU candidate 2 (8) Syncope Status: Acute Problem Specific Plan: Consult Specialist Problem Text: as per CVA (9) Diabetes mellitus Status: Chronic Problem Text: 06/20/19: Sliding scale coverage. 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 Lamb caution now on DOAC 07/14 226K 06/16 stable at 127K (11) PVD (peripheral vascular disease) Status: Chronic Problem Text: 06/10/19 BLE art US The there is diffuse atheromatous plaque bilaterally. On the right there is stenosis from the mid to distal SFA and stenosis in the distal ENTERPRISE SECURITY ARCHITECT. On the left there is stenosis in the distal SFA and stenosis in the proximal ENTERPRISE SECURITY ARCHITECT. (12) Chronic wound of extremity Status: Chronic Problem Text: 06/22: improving. 06/17/19: Dressing changes per Dr. Sanchez's recommendations per Laura: continued Vashe wound cleanser QD covered then with Santyl nickel thick and a foam dressing. Dressing changes can be on an every other day basis. Tubigrip stockings should be utilized BLE (13) Hx of aortic valve replacement Status: Chronic Problem Text: 06/20/19: Last ECHO 06/13/19 CONCLUSIONS: 1. Normal appearing and well seated aortic valve bioprosthesis. No aortic stenosis or regurgitation. 2. Mild concentric left ventricle hypertrophy. Normal regional left ventricular (LV) wall motion and wall thickening. Normal LV systolic function. Left ventricular ejection fraction (LVEF) 70% by visual estimate. Grade 1 LV diastolic dysfunction. Normal left atrial size and left atrial volume index. 3. Moderate mitral annular calcification. No mitral regurgitation or stenosis. 4. Normal right ventricle size and systolic function. (14) Colon cancer Status: Chronic Response to Treatment: Stable Problem Text: sp R colectomy PARESH Plan/VTE VTE Prophylaxis Ordered?: Yes (Xarelto ) VTE Exclusion Pharmacological: Thrombocytopenia Plan Anticipated Discharge: [facility], [facility] Vital Signs/I&O Vital Signs Date Time Temp Pulse Resp B/P (MAP) Pulse Ox O2 Delivery O2 Flow Rate FiO2 06/24/19 08:55 72 121/66 06/24/19 06:00 97.0 18 98 I&O- Last 24 Hours up to 6 AM 06/24/19 06:00 Intake Total 720 ml Output Total 325 ml Balance 395 ml Laboratory Data 24H LABS Laboratory Tests 2 06/23/19 11:37: Bedside Glucose (Misc Panel) 180H 06/23/19 16:35: Bedside Glucose (Misc Panel) 173H 06/23/19 20:13: Ammonia 16 06/23/19 21:52: Bedside Glucose (Misc Panel) 164H Microbiology Microbiology 06/19/19 Blood Culture - Preliminary, Resulted No Growth after 72 hours. All specime... 06/19/19 Blood Culture - Final, Complete Staphylococcus Aureus 06/18/19 Blood Culture - Final, Complete Staphylococcus Aureus 06/18/19 Urine Culture - Final, Complete 06/18/19 Gram Stain - Final, Resulted 06/18/19 Wound Culture - Final, Resulted Xenia Alvarado Jun 24, 2019 09:39 Cristi Carroll M.D. Jun 24, 2019 17:25
[2019-06-24 10:00] VITALS: BP 122/90
[2019-06-24 11:12] LABS: BASO % 0.3 % (0.0-1.0); EOS # 0.1 10^3/uL (0.0-0.50); HEMATOCRIT 34.1 % (42.0-52.0); LYMPH # 1.1 10^3/uL (1.5-4.5); MEAN CORPUSCULAR HEMOGLOBIN 29.3 pg (27.0-33.0); MEAN CORPUSCULAR HGB CONC 32.3 g/dl (32.0-36.5); MEAN CORPUSCULAR VOLUME 90.9 fl (80.0-96.0); MONO # 0.5 10^3/uL (0.0-0.8); MONO % 8.8 % (0.0-5.0); NEUTROPHILS # 4.2 10^3/uL (1.8-7.7); NEUTROPHILS % 70.4 % (36.0-66.0); PLATELET COUNT, AUTOMATED 185 10^3/uL (150-450); RED BLOOD COUNT 3.75 10^6/uL (4.30-6.10)
[2019-06-24 11:44] LABS: ALT/SGPT 17 U/L (12-78); BILIRUBIN,TOTAL 0.3 MG/DL (0.2-1.0); BLOOD UREA NITROGEN 11 MG/DL (7-18); CALCIUM LEVEL 8.5 MG/DL (8.8-10.2); CARBON DIOXIDE LEVEL 24 MEQ/L (21-32); CHLORIDE LEVEL 110 MEQ/L (98-107); CREATININE FOR GFR 0.75 MG/DL (0.70-1.30); GLOMERULAR FILTRATION RATE > 60.0 (>42); GLUCOSE, FASTING 226 MG/DL (70-100); POTASSIUM SERUM 3.7 MEQ/L (3.5-5.1); SODIUM LEVEL 143 MEQ/L (136-145); TOTAL PROTEIN 5.3 GM/DL (6.4-8.2)
[2019-06-24] MEDS: NORCO, ANEXSIA 5/325MG TABLET (HYDROcodone/ACETAMINOPHEN) PO PRN ×2 (14:44→21:19)
[2019-06-24] MEDS: NS 1,000 ML IV SCH (14:44)
[2019-06-24] MEDS: PANTOPRAZOLE 40MG TAB (PROTONIX) PO SCH (17:30)
[2019-06-24] MEDS: ceFAZolin SOD 2 GM in IV 1 EA IV SCH (18:40)
[2019-06-24 22:00] VITALS: BP 141/71
--- NOTE | 2019-06-24 23:20 | REPVR ---
EXAM: US Duplex Right Upper Extremity Veins, Limited EXAM DATE/TIME: 06/24/2019 10:39 PM CLINICAL HISTORY: 79 years old, male; Pain; Arn, upper; Right; Patient HX: Picc line insert arterial; Additional info: Swelling of right extremity TECHNIQUE: Imaging protocol: Real-time Duplex ultrasound of the Right Upper Extremity with 2-D menjivar scale, color Doppler flow and spectral waveform analysis with image documentation. Limited exam focused on the right upper extremity veins. COMPARISON: US DUPLEX EXT UPPER VEINS UNILATE RIGHT 06/20/2019 5:58 AM FINDINGS: Right deep veins: Unremarkable. Axillary and brachial veins are patent throughout without thrombus. Visualized internal jugular and subclavian veins are patent. Right superficial veins: Mildly heterogeneous, and nonocclusive thrombus in the distal cephalic vein. Visualized basilic vein patent without thrombus. Soft tissues: Unremarkable. IMPRESSION: 1. No sonographic evidence of deep vein thrombosis. 2. Mildly heterogeneous, and nonocclusive thrombus in the distal cephalic vein. Electronically signed by: Pascual Lee On 06/24/2019 23:20:10 PM
[2019-06-25] MEDS: ceFAZolin SOD 2 GM in IV 1 EA IV SCH ×3 (02:33→17:19)
[2019-06-25] MEDS: SODIUM CHLORIDE 0.9% INJ 10 ML SYR IV SCH ×2 (05:23→17:19)
[2019-06-25 06:00] VITALS: BP 158/74
--- NOTE | 2019-06-25 07:30 | CR ---
DATE OF CONSULTATION: 06/24/2019 REASON FOR CONSULTATION: I asked to consult by Dr. Carroll for evaluation of staph aureus bacteremia. HISTORY OF PRESENT ILLNESS: Mr. Samano is a 79-year-old gentleman with multiple medical problems who was admitted initially on June 08 with syncopal episode that was being worked up for possible atrial fibrillation and stroke, but the patient developed a fever on June 18 and blood cultures were done that were positive for methicillin- sensitive Staphylococcus aureus (MSSA) on 06/18 and 06/19. The patient was started on IV antibiotics. Eventually cultures grew MSSA and the patient was switched to IV Rocephin. Repeat blood culture was ordered on 06/24, which is still pending. He had worsening mental status changes and there was concern for embolic phenomena and therefore he had an MRI which showed multiple emboli to the brain. The patient is not able to give me a history as he is quite confused. He actually has a sitter as he has had multiple bursts of agitation and difficulty with treatment. ALLERGIES: 1. PENICILLIN. 2. PROCAINE. PAST MEDICAL HISTORY: Significant for: Colon carcinoma diagnosed in 2016, T1N0M0, status post right hemicolectomy in July of 2018. Multiple subcentimeter lung nodules. A history of idiopathic thrombocytopenic purpura (ITP) for which he has been on prednisone for many years, 40 mg, that now has been discontinued and the patient takes TAVALISSE 150 mg twice a day. He has a history of steroid induced myopathy. He uses a wheelchair, but he also has dementia and there was concern about his safety at home. Hypertension. Hyperlipidemia. Thrombocytopenia. Diabetes type 2. Colon cancer status post right hemicolectomy. Coronary artery disease status post percutaneous coronary intervention (PCI). Peripheral vascular disease with carotid stenosis and carotid endarterectomy. Aortic stenosis status post bovine aortic valve replacement. Congestive heart failure. Chronic kidney disease stage III. Morbid obesity. Nicotine dependence. SURGICAL HISTORY: Carpal tunnel release. Left shoulder surgery. Rotator cuff repair. Appendectomy at the age of 12. Bovine aortic valve replacement and left carotid endarterectomy. Right hemicolectomy. MEDICATIONS: - ceftriaxone 06/21 until 06/24 he has received 2 grams every 24 hours - Keppra 500 mg p.o. b.i.d. - gabapentin 300 mg p.o. b.i.d. - tamsulosin 0.4 mg p.o. daily - Flector patch to right shoulder q.12 h - Vicodin 2 tablets every 6 hours as needed - Depakote 250 mg by mouth daily - lisinopril 20 mg by mouth daily - Protonix 40 mg by mouth every 48 hours - Pepcid 40 mg by mouth daily - Slow-Mag 65 mg by mouth daily - Pravachol 20 mg by mouth daily - potassium chloride 10 mEq daily - bisoprolol 10 mg by mouth daily - TAVALISSE 150 mg by mouth twice a day - nebs as needed FAMILY HISTORY: Gastric cancer in the father, hypertension. Mother with cardiovascular disease. SOCIAL HISTORY: He smokes a pack a day. Denies alcohol or polysubstance abuse. He lives with his who wants to take care of him at home. REVIEW OF SYSTEMS: His major complaint is his right shoulder and arm pain. Otherwise, he has no other pains. He denies any cough or shortness of breath. No fever or chills. According to nursing staff and caregiver at the bedside, he is very agitated and does not recall any of the instructions given to him. PHYSICAL EXAMINATION: HEART: Normal S1 and S2, no murmurs, rubs or gallops appreciated. Midline scar, well-healed. LUNGS: Decreased breath sounds at the bases, but I could not sit him up or roll him over. ABDOMEN: Very large midline scar, well-healed, nontender to touch. EXTREMITIES: Pitting edema lower extremities and upper extremities. Upper extremities have multiple ecchymosis and skin tears. Lower extremities are shiny with +1 pitting edema. MUSCULOSKELETAL EXAM: Right shoulder cannot move without discomfort, significant pain with abduction. Left shoulder full range of motion. LABORATORY DATA: White count 6, hemoglobin 11, hematocrit 34.1, platelets 185, 70% neutrophils, 90% lymphocytes, 8% monocytes. His white count has been normal throughout this admission. Sodium 143, potassium 3.7, chloride 110, bicarb 24, BUN 11, creatinine 0.75, glucose 226, calcium 8.5, AST 30, ALT 17, alk phos 120, albumin 2, total protein 5.3. Blood culture on 06/18 was positive for MSSA, only one set was drawn on 06/19 at 1505 hours, which is 15 hours after he had another culture with MSSA, a decubitus ulcer with no growth. Blood culture repeated on 06/19 at 1614 hours was negative and blood culture done on 06/24 is pending. Urinalysis had 17 white cells, 1 red cell. Brain MRI focal and small recent acute to subacute infarcts in more than one vascular territory, presumably embolic involving the right cerebellum, left temporal deep white matter, bilateral periventricular deep white matter. Head CT showed age-related atrophy and microvascular ischemic changes. Vascular ultrasound duplex right upper extremities limited due to the patient being combative but no clot demonstrated. Carotid artery MRI no hemodynamically significant stenosis. Cervical CT spine without contrast no evidence of spinal traumatic injury. IMPRESSION: This is a 79-year-old gentleman who was admitted initially for syncope workup. Workup was unrevealing until June 18 when he developed a fever of 102.8, blood cultures two sets were drawn over 24 hours and they were both positive for MSSA. The origin of staph aureus bacteremia is unclear to me. The patient has multiple open ulcerations most of which are superficial from skin tears and steroid induced skin breakdown. I am not sure he had any peripheral IVs that looked infected. Currently the patient has a PICC line in the right biceps area. He has been on IV antibiotics with defervescence, but the patient has developed what looks like septic emboli to multiple territories. IMPRESSION This is a 79-year-old gentleman with multiple medical problems including colon cancer T1N0M0, PVD,CAD Aortic stenosi with bovine AVR, ITP was on chronic steroids, admitted for syncope workup and developed 10 days later staphylococcus aureus bacteremia. Source could be from skin breakdown versus an infected IV but the concern is that the patient has a porcine aortic valve that could have been also seeded and infected. Now the patient has developed multiple emboli to his brain which could also be septic emboli from staph aureus. He has decompensated over the past week. According to Dr. Carroll the patient is DO NOT RESUSCITATE. PLAN: Discontinue IV ceftriaxone. Use more narrow spectrum better Staphylococcus Aureus coverage with cefazolin 2 grams IV every 12 hours. Monitor for any allergic reaction as he is allergic to penicillin. Obtain repeat blood cultures, need two sets to document resolution of bacteremia. Add ESR, CRP. Discuss with family whether they want to be aggressive and obtain a transesophageal echocardiogram to rule out of vegetation and further workup from there. In any case, the patient will need 6 weeks of IV antibiotics since he has a complicated bacteremia with septic emboli and a prosthetic aortic valve. Picc line has been placed , may need NH or acute rehab placement MTDD
[2019-06-25] MEDS: IPRATROPIUM 0.5MG/ALBUTEROL 2.5MG INH SOL UD 3ML (DUONEB)(J7620) NEB SCH ×3 (08:00→20:00)
[2019-06-25] MEDS: TAVALISSE PO SCH ×2 (08:12→21:16)
[2019-06-25] MEDS: MAGNESIUM CHLORIDE 64 MG TABCR (SLO MAG) PO SCH (08:12)
[2019-06-25] MEDS: HumaLOG INSULIN (NovoLOG) PER UNIT SC SCH ×4 (08:13→21:00)
[2019-06-25] MEDS: GABAPENTIN 300 MG CAP PO SCH ×2 (08:13→21:16)
[2019-06-25] MEDS: DICLOFENAC EPOLAMINE 1.3 % PATCH TOP SCH ×2 (08:13→21:17)
[2019-06-25] MEDS: TAMSULOSIN 0.4 MG CAP PO SCH (08:13)
[2019-06-25] MEDS: FAMOTIDINE 20 MG TAB PO SCH (08:14)
[2019-06-25] MEDS: PRAVASTATIN 20 MG TAB PO SCH (08:14)
[2019-06-25] MEDS: DIVALPROEX 250 MG TAB PO SCH (08:14)
[2019-06-25] MEDS: LISINOPRIL 20 MG TAB PO SCH (08:14)
[2019-06-25] MEDS: levETIRAcetam 250MG TABLET (KEPPRA) PO SCH ×2 (08:14→21:17)
[2019-06-25] MEDS: POTASSIUM CHLORIDE 10 MEQ SR TABLET PO SCH (08:14)
[2019-06-25] MEDS: NORCO, ANEXSIA 5/325MG TABLET (HYDROcodone/ACETAMINOPHEN) PO PRN (08:15)
[2019-06-25] MEDS: BISOPROLOL FUMARATE 10 MG TAB PO SCH (08:22)
--- NOTE | 2019-06-25 09:49 | IPNPDOC ---
Subjective Date Seen The patient was seen on 06/25/19. Subjective Chief Complaint/HPI AMS Events since last encounter now with superficial DVT to RIGHT PICC Line. + swelling and pain in area. Xarelto held due to hemorrhage risk associated with septic emboli. continues with agitation and confusion. Constitutional: Denies: Chills, Fever, Night Sweats Pulmonary: Denies: Dyspnea, Cough Gastrointestinal: Denies: Nausea, Vomiting, Abdominal Pain, Diarrhea, Constipation Genitourinary: Denies: Dysuria, Frequency, Incontinence, Retention Objective Physical Examination General Exam: Positive: Alert (communicating, speech clear: pleasantly confused), No Acute Distress Eye Exam: Positive: PERRLA, Conjunctiva & lids normal Neck Exam: Positive: Supple; Negative: thyromegaly Chest Exam: Positive: Clear to auscultation, Normal air movement Heart Exam: Positive: Rate Normal, Regular Rhythm, Normal S1, Normal S2; Negative: Murmurs, Rubs Abdomen Exam: Positive: Normal bowel sounds, Soft; Negative: Tenderness, Hepatospenomegaly Extremity Exam: Positive: Normal pulses, Swelling (RUE); Negative: Clubbing, Cyanosis, Edema Skin Exam: Positive: Other skin issue (wounds are improving.) Neuro Exam: Positive: Other (alert to self and family. ) Psych Exam: Negative: Mental status NL (confused about location and recent events. recognizes me and his who is present in his room at this time.), Mood NL (tells me that he wants to , that he has had a full life and doesn't want to spend the rest of his life taking pills, he wants to go home so no one is telling him what to do and take.) Assessment /Plan Problems (1) Paroxysmal atrial fibrillation Status: Chronic Response to Treatment: Stable Problem Text: per Dr. Small office notes-only known occurence was [id number] on AC for it (2) Dementia Status: Chronic Problem Text: stable: last dose: halo 2 IM 06/21, risper 2 po 06/22 chronic c IED (favor FTD) Contingency: parox to reduce disinhibition; restart ris/halo prn 06/14 given sedation in late PM (although had been very agitated in AM), Neuro checked CT head NAD and changed risper to aripip 2 BID (given a partial DA agonist, would given low impulse control), but worst-ever agitation 06/15 AM requiring IM halo 1 x 1; therefore, changed back to risper and dced dulox 20 QHS (had been started for chronic pain) (3) Thrombosis of right cephalic vein Status: Acute Problem Text: no AC as per septic emboli 06/25/19 R PICC dc 06/24/19 RUE US: No sonographic evidence of deep vein thrombosis. 2. Mildly heterogeneous, and nonocclusive thrombus in the distal cephalic vein (done 2 increased R UE tumor/rubor/dolor) (4) Septic embolism Status: Acute Problem Text: possible IE c septic emboli DOAC held given no evidence of benefit prevent emboli in IE AND increased risk of hemorrhagic conversion (5) MSSA (methicillin susceptible Staphylococcus aureus) Status: Acute Problem Text: D2 cefazolin (given ho AVR) 06/21 sp R PICC, 06/25/19 removed as per cephalic v thrombus tc LEVON if condition stabilizes 06/25 TTE read P 06/24 CRP/ESR 13.7/74 06/24 BCX2 NG 06/18 BCX 12/23 MSSA-06/21 + ceftriaxone 2 gm QD (6) Seizure-like activity Status: Acute Problem Text: no further rigidity 06/24 generalized rigidity cw TC sz activity; therefore, + leve 500 BID-favor 2 new emboli (7) Cerebrovascular accident, embolic Status: Acute Problem Text: 06/23: due to strong suspicion for septic emboli (mri findings and positive blood culture for S aureus) and absent confirmation of Afib, and concern expressed by Dr. 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 06/14 changed LMWH to rivarox 06/13 presumptive AF, but none documented since admission on tele; long dw who will attempt to arrange 12/06 coverage for px to dc home 06/13 given embolic CVA; restart tele, + therapeutic LMWH 06/13/19 MRA brain/carotids s significant stenosis 06/13/19 MRI brain: Numerous small foci of restricted diffusion with associated ADC dropout throughout the bilateral cerebral hemispheres, measuring up to 11 x 8 mm in the right occipital lobe. (not appreciated by 06/11 CT head) 06/10 TTE: 1. Normal appearing and well seated aortic valve bioprosthesis. No aortic stenosis or regurgitation. 2. Mild concentric left ventricle hypertrophy. Normal regional left ventricular (LV) wall motion and wall thickening. Normal LV systolic function. Left ventricular ejection fraction (LVEF) 70% by visual estimate. Grade 1 LV diastolic dysfunction. Normal left atrial size and left atrial volume index. 3. Moderate mitral annular calcification. No mitral regurgitation or stenosis. 4. Normal right ventricle size and systolic function. (8) HTN (hypertension) Status: Chronic Problem Text: stable on HD lisin 20, (9) Ataxia Status: Chronic Problem Text: 06/25/19 restarted PT 06/14 now safe per PT to dc home c services was NOT ARU candidate 2 (10) Syncope Status: Acute Problem Specific Plan: Consult Specialist Problem Text: as per CVA (11) Diabetes mellitus Status: Chronic Problem Text: HD glar 40, 05/2019 A1C 9.4 BG mid 100s c solely SSLI (12) Thrombocytopenia Status: Acute Problem Text: 2 ITP- remains stable on fostamatinib (in place of GC, risk of HTN crisis, but not VTE) per Dr. Lamb caution now on DOAC 07/14 226K 06/16 stable at 127K (13) PVD (peripheral vascular disease) Status: Chronic Problem Text: 06/10/19 BLE art US The there is diffuse atheromatous plaque bilaterally. On the right there is stenosis from the mid to distal SFA and stenosis in the distal [employer]CH[employer]. On the left there is stenosis in the distal SFA and stenosis in the proximal [employer]OM[employer]CH[employer]. (14) Chronic wound of extremity Status: Chronic Problem Text: 06/22: improving. 06/17/19: Dressing changes per Dr. Sanchez's recommendations per Laura: continued Vashe wound cleanser QD covered then with Santyl nickel thick and a foam dressing. Dressing changes can be on an every other day basis. Tubigrip stockings should be utilized BLE (15) Hx of aortic valve replacement Status: Chronic Problem Text: 06/20/19: Last ECHO 06/13/19 CONCLUSIONS: 1. Normal appearing and well seated aortic valve bioprosthesis. No aortic stenosis or regurgitation. 2. Mild concentric left ventricle hypertrophy. Normal regional left ventricular (LV) wall motion and wall thickening. Normal LV systolic function. Left ventricular ejection fraction (LVEF) 70% by visual estimate. Grade 1 LV diastolic dysfunction. Normal left atrial size and left atrial volume index. 3. Moderate mitral annular calcification. No mitral regurgitation or stenosis. 4. Normal right ventricle size and systolic function. (16) Colon cancer Status: Chronic Response to Treatment: Stable Problem Text: sp R colectomy PARESH Plan/VTE VTE Prophylaxis Ordered?: Yes (Xarelto ) VTE Exclusion Pharmacological: Thrombocytopenia Plan Anticipated Discharge: Long-Term VS, I&O, 24H, [facility] Vital Signs/I&O Vital Signs Date Time Temp Pulse Resp B/P (MAP) Pulse Ox O2 Delivery O2 Flow Rate FiO2 06/25/19 08:22 96 158/74 06/25/19 08:15 18 06/25/19 06:00 97.6 94 I&O- Last 24 Hours up to 6 AM 06/25/19 06:00 Intake Total 665 ml Output Total 620 ml Balance 45 ml Laboratory Data 24H LABS Laboratory Tests 2 06/24/19 10:47: Immature Granulocyte % (Auto) 0.5, White Blood Count 6.0, Red Blood Count 3.75L, Hemoglobin 11.0L, Hematocrit 34.1L, Mean Corpuscular Volume 90.9, Mean Corpuscular Hemoglobin 29.3, Mean Corpuscular Hemoglobin Concent 32.3, Red Cell Distribution Width 13.8, Platelet Count 185, Neutrophils (%) (Auto) 70.4H, Lymph ocytes (%) (Auto) 19.0L, Monocytes (%) (Auto) 8.8H, Eosinophils (%) (Auto) 1.0, Basophils (%) (Auto) 0.3, Neutrophils # (Auto) 4.2, Lymphocytes # (Auto) 1.1L, Monocytes # (Auto) 0.5, Eosinophils # (Auto) 0.1, Basophils # (Auto) 0.0, Nucleated Red Blood Cells % (auto) 0.0, Anion Gap 9, Glomerular Filtration Rate > 60.0, Blood Urea Nitrogen 11#, Creatinine 0.75, Sodium Level 143, Potassium Level 3.7, Chloride Level 110H, Carbon Dioxide Level 24, Calcium Level 8.5L, Aspartate Amino Transf (AST/SGOT) 30, Alanine Aminotransferase (ALT/SGPT) 17, Alkaline Phosphatase 120H, Total Bilirubin 0.3, Total Protein 5.3L, Albumin 2.0L, Albumin/Globulin Ratio 0.61L 06/24/19 11:42: Bedside Glucose (Misc Panel) 237H 06/24/19 18:14: Erythrocyte Sedimentation Rate 74H, C-Reactive Protein, Quantitative 13.70H CBC/BMP Laboratory Tests 06/24/19 10:47 Red Blood Count 3.75 L, Mean Corpuscular Volume 90.9, Mean Corpuscular Hemoglobin 29.3, Mean Corpuscular Hemoglobin Concent 32.3, Red Cell Distribution Width 13.8, Neutrophils (%) (Auto) 70.4 H, Lymphocytes (%) (Auto) 19.0 L, Monocytes (%) (Auto) 8.8 H, Eosinophils (%) (Auto) 1.0, Basophils (%) (Auto) 0.3, Neutrophils # (Auto) 4.2, Lymphocytes # (Auto) 1.1 L, Monocytes # (Auto) 0.5, Eosinophils # (Auto) 0.1, Basophils # (Auto) 0.0, Calcium Level 8.5 L, Aspartate Amino Transf (AST/SGOT) 30, Alanine Aminotransferase (ALT/SGPT) 17, Alkaline Phosphatase 120 H, Total Bilirubin 0.3, Total Protein 5.3 L, Albumin 2.0 L Microbiology Microbiology 06/24/19 Blood Culture, Received Pending 06/24/19 Blood Culture, Received Pending 06/19/19 Blood Culture - Final, Complete NO GROWTH AFTER 5 DAYS 06/19/19 Blood Culture - Final, Complete Staphylococcus Aureus 06/18/19 Blood Culture - Final, Complete Staphylococcus Aureus 06/18/19 Urine Culture - Final, Complete 06/18/19 Gram Stain - Final, Resulted 06/18/19 Wound Culture - Final, Resulted Xenia Alvarado Jun 25, 2019 09:49 Cristi Carroll M.D. Jun 25, 2019 17:00
[2019-06-25 10:00] VITALS: BP 157/72
[2019-06-25 10:21] LABS: BASO % 0.6 % (0.0-1.0); EOS # 0.1 10^3/uL (0.0-0.50); EOS % 1.4 % (0.0-3.0); HEMATOCRIT 30.9 % (42.0-52.0); HEMOGLOBIN 10.1 g/dl (13.5-17.5); LYMPH # 1.5 10^3/uL (1.5-4.5); LYMPH % 29.4 % (24.0-44.0); MEAN CORPUSCULAR HEMOGLOBIN 29.4 pg (27.0-33.0); MEAN CORPUSCULAR HGB CONC 32.7 g/dl (32.0-36.5); MEAN CORPUSCULAR VOLUME 89.8 fl (80.0-96.0); MONO # 0.6 10^3/uL (0.0-0.8); MONO % 10.8 % (0.0-5.0); NEUTROPHILS # 2.9 10^3/uL (1.8-7.7); NEUTROPHILS % 57.2 % (36.0-66.0); PLATELET COUNT, AUTOMATED 162 10^3/uL (150-450); RED BLOOD COUNT 3.44 10^6/uL (4.30-6.10); WHITE BLOOD COUNT 5.1 10^3/uL (4.0-10.0)
[2019-06-25] MEDS: NS 1,000 ML IV SCH ×2 (10:46→17:19)
[2019-06-25 10:47] LABS: ALT/SGPT 20 U/L (12-78); BILIRUBIN,TOTAL 0.4 MG/DL (0.2-1.0); BLOOD UREA NITROGEN 9 MG/DL (7-18); CALCIUM LEVEL 8.8 MG/DL (8.8-10.2); CARBON DIOXIDE LEVEL 27 MEQ/L (21-32); CHLORIDE LEVEL 110 MEQ/L (98-107); CREATININE FOR GFR 0.77 MG/DL (0.70-1.30); GLOMERULAR FILTRATION RATE > 60.0 (>42); GLUCOSE, FASTING 204 MG/DL (70-100); POTASSIUM SERUM 3.3 MEQ/L (3.5-5.1); SODIUM LEVEL 142 MEQ/L (136-145); TOTAL PROTEIN 4.9 GM/DL (6.4-8.2)
[2019-06-25] MEDS ORDERED: POTASSIUM CHLORIDE 10 MEQ SR TABLET PO ONE (17:00)
--- NOTE | 2019-06-25 17:56 | IPN ---
DATE: 06/25/2019 Mr. Samano complains of right shoulder pain. He had an ultrasound of his right arm, which showed a nonocclusive thrombus in the distal cephalic vein. Has had no fever or chills. No nausea, vomiting, or diarrhea. Temperature is 98, pulse 97, respirations 19, blood pressure 157/72, oxygen saturation 98% on room air. Heart: Normal S1, S2, distant. Lungs: Diminished breath sounds at the bases but clear. Abdomen: Obese, soft, nontender with a healed midline scar. Extremities: Pitting edema 1+. Right shoulder significantly tender with limited range of motion, especially with abduction. Upper extremity swelling with bilateral ecchymosis. IMPRESSION: 1. Staphylococcus aureus with Staphylococcus aureus bacteremia in the setting of aortic valve replacement, concerning for endocarditis with septic emboli to the brain. The patient is currently on intravenous (IV) cefazolin 2 grams every 8 hours. 2. Right shoulder pain with limited range of motion concerning for possibility of a septic arthritis. I would consider imaging his right shoulder. I do not think that deep vein thrombosis (DVT) is the cause of this pain. 3. Nonocclusive thrombus of the distal cephalic vein. This is not a DVT. This is a superficial vein. PLAN: Continue with IV cefazolin. The patient will need at the 6 weeks of IV antibiotic due to the fact that he has complicated bacteremia with a prosthetic valve. Consider obtaining MRI of the right shoulder.
[2019-06-25 18:00] VITALS: BP 155/70
[2019-06-25 22:00] VITALS: BP 126/68
[2019-06-26] MEDS: ceFAZolin SOD 2 GM in IV 1 EA IV SCH ×3 (01:42→17:33)
[2019-06-26] MEDS: SODIUM CHLORIDE 0.9% INJ 10 ML SYR IV SCH (05:27)
[2019-06-26 06:00] VITALS: BP 116/65
--- NOTE | 2019-06-26 06:24 | EEG ---
DATE OF PROCEDURE: 06/24/2019 REFERRING PHYSICIAN: Dr. Darell Mensah DIAGNOSIS: Strokes, altered mental status and rigidity. HISTORY: The patient is a 79-year-old man who was admitted at [facility] due to passing out spell, developed altered mental status, aggressive behavior, found to have multiple strokes. He has waxing and waning mental status. He is currently taking Xarelto, Depakote, risperidone, Flomax, gabapentin, Keppra, pravastatin, etc. TECHNICAL DESCRIPTION: This digital EEG was recorded by 21 scalp, ear and two EKG electrodes and was reviewed in bipolar and referential montages following reformatting in 10-20 international electrode placement system. INTERPRETATION: The patient was noted to be in awake and drowsy states during this EEG. Excessive muscle artifact was seen in bilateral frontal and temporal head regions. In readable portions of this EEG, background rhythm consisted of 7 Hz theta activity measuring 15-30 microvolts in amplitude which was symmetric bilaterally. Hyperventilation could not be performed. Photic stimulation remained unremarkable. No sleep was achieved. No focal, lateralizing or epileptiform abnormalities were seen. EKG revealed normal sinus rhythm. CONCLUSION: This EEG in awake and drowsy states is mildly abnormal due to presence of mild generalized slowing and disorganization of background consistent with mild nonspecific diffuse cerebral dysfunction such as seen in encephalopathy due to multiple potential causes. No epileptiform abnormalities were seen. Excessive muscle artifact was noted. Clinical correlation is recommended.
[2019-06-26] MEDS: HumaLOG INSULIN (NovoLOG) PER UNIT SC SCH ×4 (07:30→21:00)
--- NOTE | 2019-06-26 07:37 | ECHO ---
DATE OF STUDY: 06/25/2019 REFERRING PHYSICIAN: Dr. Cristi Carroll INDICATION: Septic emboli, status post aortic valve replacement. HEIGHT: 180 cm. WEIGHT: 110 kg. 2-D MEASUREMENTS: Ventricular septum: 1.22 cm Posterior wall: 0.99 cm Left ventricle diastole: 4.9 cm Aortic root: 2.4 cm Left atrium: 3.4 cm Aortic annulus: 2.0 cm Inferior vena cava: 1.4 cm DOPPLER MEASUREMENTS: Aortic valve velocity: 196 cm/sec LVOT velocity: 85.0 cm/sec LVOT VTI: 23.4 cm Very mild mitral regurgitation Mitral E velocity: 93.8 cm/sec Mitral A velocity: 141 cm/sec Mitral deceleration time: 380 ms No aortic regurgitation detected No pulmonic regurgitation detected Very mild pulmonic regurgitation Pulmonary artery systolic pressure: 25 mmHg MITRAL ANNULAR TISSUE DOPPLER: E prime lateral: 4.7 cm/sec E prime septal: 4.8 cm/sec DESCRIPTION: The rhythm was sinus. This was a moderately technically difficult echocardiogram. This was a 2-D, M-mode, color flow Doppler and pulse wave Doppler examination and included mitral annular tissue Doppler. CONCLUSIONS: 1. Borderline concentric left ventricle hypertrophy. Normal regional LV wall motion and wall thickening. Normal LV systolic function. LVEF 70% by visual estimate. Grade 1 LV diastolic dysfunction (impaired relaxation filling pattern). 2. Cardiac valves were only moderately well visualized. This was a technically difficult study for assessment of vegetations. The image quality of the study was not adequate to rule out very small vegetations. 3. Moderate mitral annular calcification. Very mild mitral regurgitation. No mitral stenosis. 4. Status post aortic valve replacement with bioprosthesis which appears to be functionally normal. 5. Small pericardial effusion measuring 1.0 cm of the posterior wall of the left ventricle. No diastolic chamber collapse.
[2019-06-26] MEDS: IPRATROPIUM 0.5MG/ALBUTEROL 2.5MG INH SOL UD 3ML (DUONEB)(J7620) NEB SCH ×3 (08:00→20:00)
[2019-06-26 08:05] LABS: BASO % 0.7 % (0.0-1.0); EOS # 0.1 10^3/uL (0.0-0.50); EOS % 2.3 % (0.0-3.0); HEMATOCRIT 32.6 % (42.0-52.0); HEMOGLOBIN 10.5 g/dl (13.5-17.5); LYMPH # 1.4 10^3/uL (1.5-4.5); LYMPH % 32.1 % (24.0-44.0); MEAN CORPUSCULAR HGB CONC 32.2 g/dl (32.0-36.5); MEAN CORPUSCULAR VOLUME 93.1 fl (80.0-96.0); MONO # 0.4 10^3/uL (0.0-0.8); NEUTROPHILS # 2.3 10^3/uL (1.8-7.7); NEUTROPHILS % 54.4 % (36.0-66.0); PLATELET COUNT, AUTOMATED 187 10^3/uL (150-450); WHITE BLOOD COUNT 4.3 10^3/uL (4.0-10.0)
[2019-06-26 08:27] LABS: ALBUMIN 1.8 GM/DL (3.2-5.2); ALT/SGPT 12 U/L (12-78); BILIRUBIN,TOTAL 0.3 MG/DL (0.2-1.0); BLOOD UREA NITROGEN 9 MG/DL (7-18); C REACTIVE PROTEIN QUANTITATIV 9.42 MG/DL (0.00-0.30); CALCIUM LEVEL 8.5 MG/DL (8.8-10.2); CARBON DIOXIDE LEVEL 24 MEQ/L (21-32); CHLORIDE LEVEL 112 MEQ/L (98-107); CREATININE FOR GFR 0.74 MG/DL (0.70-1.30); GLOMERULAR FILTRATION RATE > 60.0 (>42); GLUCOSE, FASTING 120 MG/DL (70-100); POTASSIUM SERUM 3.3 MEQ/L (3.5-5.1); SODIUM LEVEL 143 MEQ/L (136-145); TOTAL PROTEIN 5.4 GM/DL (6.4-8.2)
[2019-06-26] MEDS: POTASSIUM CHLORIDE 10 MEQ SR TABLET PO SCH ×2 (08:44→21:30)
[2019-06-26] MEDS: PRAVASTATIN 20 MG TAB PO SCH (08:44)
[2019-06-26] MEDS: levETIRAcetam 250MG TABLET (KEPPRA) PO SCH ×2 (08:44→21:30)
[2019-06-26] MEDS ORDERED: POTASSIUM CHLORIDE 10 MEQ SR TABLET PO ONE (08:45)
[2019-06-26] MEDS: LISINOPRIL 20 MG TAB PO SCH (08:45)
[2019-06-26] MEDS: BISOPROLOL FUMARATE 10 MG TAB PO SCH (08:46)
[2019-06-26] MEDS: FAMOTIDINE 20 MG TAB PO SCH (08:46)
[2019-06-26] MEDS: GABAPENTIN 300 MG CAP PO SCH ×2 (08:46→21:30)
[2019-06-26] MEDS: TAMSULOSIN 0.4 MG CAP PO SCH (08:47)
[2019-06-26] MEDS: MAGNESIUM CHLORIDE 64 MG TABCR (SLO MAG) PO SCH (08:47)
[2019-06-26] MEDS: TAVALISSE PO SCH ×2 (08:47→21:31)
[2019-06-26] MEDS: DIVALPROEX 250 MG TAB PO SCH (08:48)
[2019-06-26] MEDS: DICLOFENAC EPOLAMINE 1.3 % PATCH TOP SCH ×2 (08:48→21:30)
--- NOTE | 2019-06-26 09:08 | IPNPDOC ---
Subjective Date Seen The patient was seen on 06/26/19. Subjective Chief Complaint/HPI syncope Events since last encounter and daughter at bedside. Condition unchanged. Patient does c/o right shoulder pain, MRI recommended by ID. agreeable. Constitutional: Denies: Chills, Fever, Night Sweats Pulmonary: Denies: Dyspnea, Cough Cardiovascular: Denies: Chest Pain, Palpitations, Orthopnea, Paroxysmal Noc. Dyspnea, Edema, Lt Headedness, Other Symptoms Objective Physical Examination General Exam: Positive: Alert (communicating, speech clear: pleasantly confused), No Acute Distress Eye Exam: Positive: PERRLA, Conjunctiva & lids normal Neck Exam: Positive: Supple; Negative: thyromegaly Chest Exam: Positive: Clear to auscultation, Normal air movement Heart Exam: Positive: Rate Normal, Regular Rhythm, Normal S1, Normal S2; Negative: Murmurs, Rubs Abdomen Exam: Positive: Normal bowel sounds, Soft; Negative: Tenderness, Hepatospenomegaly Extremity Exam: Positive: Normal pulses, Swelling (RUE); Negative: Clubbing, Cyanosis, Edema Skin Exam: Positive: Other skin issue (wounds are improving.) Neuro Exam: Positive: Other (alert to self and family. ) Psych Exam: Negative: Mental status NL (confused about location and recent events. recognizes me and his who is present in his room at this time.), Mood NL (tells me that he wants to , that he has had a full life and doesn't want to spend the rest of his life taking pills, he wants to go home so no one is telling him what to do and take.) Assessment /Plan Problems (1) Paroxysmal atrial fibrillation Status: Chronic Response to Treatment: Stable Problem Text: per Dr. Small office notes-only known occurence was [id number] on AC for it. 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, however (2) Dementia Status: Chronic Problem Text: stable: last dose: halo 2 IM 06/21, risper 2 po 06/22 chronic c IED (favor FTD) Contingency: parox to reduce disinhibition; restart ris/halo prn 06/14 given sedation in late PM (although had been very agitated in AM), Neuro checked CT head NAD and changed risper to aripip 2 BID (given a partial DA agonist, would given low impulse control), but worst-ever agitation 06/15 AM requiring IM halo 1 x 1; therefore, changed back to risper and dced dulox 20 QHS (had been started for chronic pain) (3) Thrombosis of right cephalic vein Status: Acute Problem Text: 06/26: discussed option of midline catheter if needed for IV access for meds. no AC as per septic emboli 06/25/19 R PICC dc 06/24/19 RUE US: No sonographic evidence of deep vein thrombosis. 2. Mildly heterogeneous, and nonocclusive thrombus in the distal cephalic vein (done 2 increased R UE tumor/rubor/dolor) (4) Right shoulder pain Problem Text: MRI ordered. R/o septic arthritis (5) Septic embolism Status: Acute Problem Text: not reuming anticoag at this time for below stated reasons. possible IE c septic emboli DOAC held given no evidence of benefit prevent emboli in IE AND increased risk of hemorrhagic conversion (6) MSSA (methicillin susceptible Staphylococcus aureus) Status: Acute Problem Text: cefazolin (given ho AVR) Started vancomycin 06/19, so this is day 8 of IV antibiotics covering Staph. 06/21 sp R PICC, 06/25/19 removed as per cephalic v thrombus tc LEVON if condition stabilizes 06/25 TTE read P 06/24 CRP/ESR 13.7/74 06/24 BCX2 NG 06/18 BCX 12/23 MSSA-06/21 + ceftriaxone 2 gm QD (7) Seizure-like activity Status: Acute Problem Text: 06/26: EEG does not show seizure activity. no further rigidity 06/24 generalized rigidity cw TC sz activity; therefore, + leve 500 BID-favor 2 new emboli (8) Cerebrovascular accident, embolic Status: Acute Problem Text: 06/23: due to strong suspicion for septic emboli (mri findings and positive blood culture for S aureus) and absent confirmation of Afib, and concern expressed by Dr. Santamaria for prudence of anticoagulation in the setting of septic emboli; therefore, dced rivarox-last dose 06/23/19 8: continue to show dementia features c/w multi-infarct dementia. 06/14 changed LMWH to rivarox 06/13 presumptive AF, but none documented since admission on tele; long dw who will attempt to arrange 12/06 coverage for px to dc home 06/13 given embolic CVA; restart tele, + therapeutic LMWH 06/13/19 MRA brain/carotids s significant stenosis 06/13/19 MRI brain: Numerous small foci of restricted diffusion with associated ADC dropout throughout the bilateral cerebral hemispheres, measuring up to 11 x 8 mm in the right occipital lobe. (not appreciated by 06/11 CT head) 06/10 TTE: 1. Normal appearing and well seated aortic valve bioprosthesis. No aortic stenosis or regurgitation. 2. Mild concentric left ventricle hypertrophy. Normal regional left ventricular (LV) wall motion and wall thickening. Normal LV systolic function. Left ventricular ejection fraction (LVEF) 70% by visual estimate. Grade 1 LV diastolic dysfunction. Normal left atrial size and left atrial volume index. 3. Moderate mitral annular calcification. No mitral regurgitation or stenosis. 4. Normal right ventricle size and systolic function. 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 Lamb caution now on DOAC 07/14 226K 06/16 stable at 127K (14) PVD (peripheral vascular disease) Status: Chronic Problem Text: 06/10/19 BLE art US The there is diffuse atheromatous plaque bilaterally. On the right there is stenosis from the mid to distal SFA and stenosis in the distal [employer]. On the left there is stenosis in the distal SFA and stenosis in the proximal [employer]. (15) Chronic wound of extremity Status: Chronic Problem Text: 06/22: improving. 06/17/19: Dressing changes per Dr. Sanchez's recommendations per Laura: continued Vashe wound cleanser QD covered then with Santyl nickel thick and a foam dressing. Dressing changes can be on an every other day basis. Tubigrip stockings should be utilized BLE (16) Hx of aortic valve replacement Status: Chronic Problem Text: 06/20/19: Last ECHO 06/13/19 CONCLUSIONS: 1. Normal appearing and well seated aortic valve bioprosthesis. No aortic stenosis or regurgitation. 2. Mild concentric left ventricle hypertrophy. Normal regional left ventricular (LV) wall motion and wall thickening. Normal LV systolic function. Left ventricular ejection fraction (LVEF) 70% by visual estimate. Grade 1 LV diastolic dysfunction. Normal left atrial size and left atrial volume index. 3. Moderate mitral annular calcification. No mitral regurgitation or stenosis. 4. Normal right ventricle size and systolic function. (17) Colon cancer Status: Chronic Response to Treatment: Stable Problem Text: sp R colectomy PARESH (18) Glaucoma Status: Chronic Response to Treatment: Stable Problem Text: Lumigan not avail in house, substitute Xalatan. Plan/VTE VTE Prophylaxis Ordered?: Yes (Xarelto ) VTE Exclusion Pharmacological: Thrombocytopenia Plan Anticipated Discharge: Fdc VS, I&O, 24H, [facility] Vital Signs/I&O Vital Signs Date Time Temp Pulse Resp B/P (MAP) Pulse Ox O2 Delivery O2 Flow Rate FiO2 06/26/19 06:00 98.6 73 20 116/65 (82) 96 I&O- Last 24 Hours up to 6 AM 06/26/19 06:00 Intake Total 1730 ml Output Total 1050 ml Balance 680 ml Laboratory Data 24H LABS Laboratory Tests 2 06/25/19 09:47: Immature Granulocyte % (Auto) 0.6, White Blood Count 5.1, Red Blood Count 3.44L, Hemoglobin 10.1L, Hematocrit 30.9L, Mean Corpuscular Volume 89.8, Mean Corpuscular Hemoglobin 29.4, Mean Corpuscular Hemoglobin Concent 32.7, Red Cell Distribution Width 13.9, Platelet Count 162, Neutrophils (%) (Auto) 57.2, Lymphocytes (%) (Auto) 29.4, Monocytes (%) (Auto) 10.8H, Eosinophils (%) (Auto) 1.4, Basophils (%) (Auto) 0.6, Neutrophils # (Auto) 2.9, Lymphocytes # (Auto) 1.5, Monocytes # (Auto) 0.6, Eosinophils # (Auto) 0.1, Basophils # (Auto) 0.0, Nucleated Red Blood Cells % (auto) 0.0, Anion Gap 5L, Glomerular Filtration Rate > 60.0, Blood Urea Nitrogen 9, Creatinine 0.77, Sodium Level 142, Potassium Level 3.3L, Chloride Level 110H, Carbon Dioxide Level 27, Calcium Level 8.8, Aspartate Amino Transf (AST/SGOT) 30, Alanine Aminotransferase (ALT/SGPT) 20, Alkaline Phosphatase 120H, Total Bilirubin 0.4, Total Protein 4.9L, Albumin 2.0L, C-Reactive Protein, Quantitative 12.70H, Albumin/Globulin Ratio 0.69L 06/25/19 17:15: Bedside Glucose (Misc Panel) 202H 06/26/19 07:14: Immature Granulocyte % (Auto) 0.5, White Blood Count 4.3, Red Blood Count 3.50L, Hemoglobin 10.5L, Hematocrit 32.6L, Mean Corpuscular Volume 93.1, Mean Corpuscular Hemoglobin 30.0, Mean Corpuscular Hemoglobin Concent 32.2, Red Cell Distribution Width 13.8, Platelet Count 187, Neutrophils (%) (Auto) 54.4, Lymphocytes (%) (Auto) 32.1, Monocytes (%) (Auto) 10.0H, Eosinophils (%) (Auto) 2.3, Basophils (%) (Auto) 0.7, Neutrophils # (Auto) 2.3, Lymphocytes # (Auto) 1.4L, Monocytes # (Auto) 0.4, Eosinophils # (Auto) 0.1, Basophils # (Auto) 0.0, Nucleated Red Blood Cells % (auto) 0.0, Anion Gap 7L, Glomerular Filtration Rate > 60.0, Blood Urea Nitrogen 9, Creatinine 0.74, Sodium Level 143, Potassium Level 3.3L, Chloride Level 112H, Carbon Dioxide Level 24, Calcium Level 8.5L, Aspartate Amino Transf (AST/SGOT) 22, Alanine Aminotransferase (ALT/SGPT) 12, Alkaline Phosphatase 99, Total Bilirubin 0.3, Total Protein 5.4L, Albumin 1.8L, C-Reactive Protein, Quantitative 9.42H, Albumin/Globulin Ratio 0.50L CBC/BMP Laboratory Tests 06/25/19 09:47 Red Blood Count 3.44 L, Mean Corpuscular Volume 89.8, Mean Corpuscular Hemoglobin 29.4, Mean Corpuscular Hemoglobin Concent 32.7, Red Cell Distribution Width 13.9, Neutrophils (%) (Auto) 57.2, Lymphocytes (%) (Auto) 29.4, Monocytes (%) (Auto) 10.8 H, Eosinophils (%) (Auto) 1.4, Basophils (%) (Auto) 0.6, Neutro phils # (Auto) 2.9, Lymphocytes # (Auto) 1.5, Monocytes # (Auto) 0.6, Eosinophils # (Auto) 0.1, Basophils # (Auto) 0.0, Calcium Level 8.8, Aspartate Amino Transf (AST/SGOT) 30, Alanine Aminotransferase (ALT/SGPT) 20, Alkaline Phosphatase 120 H, Total Bilirubin 0.4, Total Protein 4.9 L, Albumin 2.0 L 06/26/19 07:14 Red Blood Count 3.50 L, Mean Corpuscular Volume 93.1, Mean Corpuscular Hemoglobin 30.0, Mean Corpuscular Hemoglobin Concent 32.2, Red Cell Distribution Width 13.8, Neutrophils (%) (Auto) 54.4, Lymphocytes (%) (Auto) 32.1, Monocytes (%) (Auto) 10.0 H, Eosinophils (%) (Auto) 2.3, Basophils (%) (Auto) 0.7, Neutrophils # (Auto) 2.3, Lymphocytes # (Auto) 1.4 L, Monocytes # (Auto) 0.4, Eosinophils # (Auto) 0.1, Basophils # (Auto) 0.0, Calcium Level 8.5 L, Aspartate Amino Transf (AST/SGOT) 22, Alanine Aminotransferase (ALT/SGPT) 12, Alkaline Phosphatase 99, Total Bilirubin 0.3, Total Protein 5.4 L, Albumin 1.8 L Microbiology Microbiology 06/24/19 Blood Culture - Preliminary, Resulted No growth after 24 hours . All specim... 06/24/19 Blood Culture - Preliminary, Resulted No growth after 24 hours . All specim... 06/19/19 Blood Culture - Final, Complete NO GROWTH AFTER 5 DAYS 06/19/19 Blood Culture - Final, Complete Staphylococcus Aureus 06/18/19 Blood Culture - Final, Complete Staphylococcus Aureus 06/18/19 Urine Culture - Final, Complete 06/18/19 Gram Stain - Final, Complete 06/18/19 Wound Culture - Final, Complete Bacillus Sp., Not Anthracis Xenia Alvarado Jun 26, 2019 09:08 Blaine Byrd MD Jun 26, 2019 12:16
[2019-06-26 10:00] VITALS: BP 184/81
--- NOTE | 2019-06-26 10:19 | REP ---
PICC line insertion under ultrasound guidance. The procedure was performed by DANGELO Stapels, under the direct supervision of Dr. Delacruz. The risks and benefits of the procedure were explained to the patient and informed consent was obtained the verbally and written. Directly prior to the start of the procedure, a formal timeout was completed in the procedure room. The right brachial vein was localized using ultrasound guidance. The skin was prepped and draped in the sterile fashion. 4 ml 1% lidocaine was used as a local anesthetic. Using ultrasound guidance the right brachial vein was cannulated and a 0.018 guidewire was inserted and advanced to the proximal subclavian vein using fluoroscopic guidance. The needle was removed and a 5.5 [place] dilator and peel-away sheath was inserted over the guidewire. A 5.5 [place] double lumen catheter was cut to the length of 35 cm. The dilator was removed and the catheter was inserted over the guide wire with the tip ending in the proximal subclavian vein. The peel-away sheath was removed and the catheter was flushed with heparinized saline as per hospital protocol. The catheter was affixed to the skin and a sterile dressing was applied. The patient tolerated the procedure well and there were no immediate complications. 0.8 minutes of fluoroscopy time was utilized for this procedure. Some fluoroscopic images are performed with last image hold technology. These images require no additional radiation. Reviewed by DANGELO Bajwa 06/24/2019 03:06 P Electronically Signed by Saul Delacruz MD 06/26/2019 10:10 A
[2019-06-26 14:00] VITALS: BP 131/72
[2019-06-26] MEDS: NS 1,000 ML IV SCH (15:06)
[2019-06-26] MEDS: PANTOPRAZOLE 40MG TAB (PROTONIX) PO SCH (17:32)
[2019-06-26 18:00] VITALS: BP 174/75
[2019-06-26] MEDS ORDERED: PROHANCE 279.3MG/ML 5ML VIAL (A9576) As Ordered ONE (19:29)
[2019-06-26] MEDS ORDERED: PROHANCE 279.3MG/ML 15ML VIAL (A9576) As Ordered ONE (19:29)
--- NOTE | 2019-06-26 20:29 | REPVR ---
EXAM: MR Right Upper Extremity Joint Without and With Contrast, Shoulder EXAM DATE/TIME: 06/26/2019 8:45 AM CLINICAL HISTORY: 79 years old, male; Swelling and weakness; Shoulder; Right; Upper limb; Additional info: Right shoulder pain. R/O septic arthritis TECHNIQUE: Imaging protocol: MR of the Right upper extremity without and with contrast. Exam focused on the shoulder. Contrast material: PROHANCE;Contrast volume: 20 ml;Contrast route: IV; COMPARISON: CR Shoulder, complete 06/14/2019 1:02 PM FINDINGS: Limitations: This examination is suboptimal secondary to motion artifact. TENDONS: Supraspinatus: Supraspinatus tendinosis. Infraspinatus: Tendinosis of the infraspinatus. Subscapularis: Thickening and increased signal within the distal subscapularis is consistent with tendinosis and/or partial tear. Teres minor: Unremarkable. No evidence of tear. Biceps brachii, long head: Tendinosis/partial tear of the intra-articular portion of the biceps tendon. Glenoid labrum: Suboptimally visualized secondary to motion artifact, but likely degenerated. Cartilage: Grade 4 chondral change within the glenohumeral joint. Bones/joints: Mild hypertrophic arthritis of the acromioclavicular joint. Severe degenerative arthrosis of the glenohumeral joint. Cystic changes within the greater tuberosity adjacent to the rotator cuff attachment is likely secondary to chronic rotator cuff tendinopathy. Edema signal within the bony glenoid is likely secondary to osteoarthritis. Osteomyelitis is not excluded. Fluid: Glenohumeral joint effusion and synovitis. Subscapularis bursitis with synovitis. Fluid and synovitis within the subcoracoid recess of the subscapularis bursa. Muscles: Mild atrophy of the supraspinatus muscle. Fluid tracking within the posterior deltoid and adjacent subcutaneous tissues as well as tracking along the supraspinatus, infraspinatus, and subscapularis muscles is present and nonspecific. Mild edema within the subacromial subdeltoid bursa. IMPRESSION: 1. Severe osteoarthritis of the glenohumeral joint. Bone marrow edema signal in the bony glenoid is likely secondary to osteoarthritis. Osteomyelitis is not excluded. 2. Rotator cuff tendinopathy, as described above. 3. Fluid tracking along the posterior deltoid, subscapularis, supraspinatus and infraspinatus muscles is nonspecific. This may be seen in the setting of trauma, as well as infectious myopathy. Clinical correlation is needed. 4. Glenohumeral joint effusion with synovitis. Septic arthritis is not excluded. Consider joint aspiration. 5. Subscapularis bursitis with synovitis, nonspecific. Septic bursitis is not excluded. Electronically signed by: Vishal Gee On 06/26/2019 20:28:50 PM
[2019-06-26] MEDS: LATANOPROST 0.005% OPHTH SOLN 2.5 ML OU SCH (21:00)
[2019-06-26 22:00] VITALS: BP 149/72
[2019-06-26 22:15] VITALS: BP 170/68
[2019-06-27] MEDS: NS 1,000 ML IV SCH ×2 (01:35→21:44)
[2019-06-27] MEDS: ceFAZolin SOD 2 GM in IV 1 EA IV SCH ×3 (01:35→16:58)
[2019-06-27 02:00] VITALS: BP 142/77
[2019-06-27 06:00] VITALS: BP 150/72
[2019-06-27 06:21] LABS: BASO % 0.7 % (0.0-1.0); EOS # 0.1 10^3/uL (0.0-0.50); EOS % 2.4 % (0.0-3.0); HEMATOCRIT 31.8 % (42.0-52.0); HEMOGLOBIN 10.3 g/dl (13.5-17.5); LYMPH # 1.5 10^3/uL (1.5-4.5); LYMPH % 32.8 % (24.0-44.0); MEAN CORPUSCULAR HEMOGLOBIN 29.7 pg (27.0-33.0); MEAN CORPUSCULAR HGB CONC 32.4 g/dl (32.0-36.5); MEAN CORPUSCULAR VOLUME 91.6 fl (80.0-96.0); MONO # 0.4 10^3/uL (0.0-0.8); MONO % 7.8 % (0.0-5.0); NEUTROPHILS # 2.5 10^3/uL (1.8-7.7); NEUTROPHILS % 56.1 % (36.0-66.0); PLATELET COUNT, AUTOMATED 189 10^3/uL (150-450); RED BLOOD COUNT 3.47 10^6/uL (4.30-6.10); WHITE BLOOD COUNT 4.5 10^3/uL (4.0-10.0)
[2019-06-27 06:49] LABS: ALBUMIN 1.8 GM/DL (3.2-5.2); ALT/SGPT 10 U/L (12-78); BILIRUBIN,TOTAL 0.3 MG/DL (0.2-1.0); BLOOD UREA NITROGEN 7 MG/DL (7-18); C REACTIVE PROTEIN QUANTITATIV 8.07 MG/DL (0.00-0.30); CALCIUM LEVEL 8.5 MG/DL (8.8-10.2); CARBON DIOXIDE LEVEL 26 MEQ/L (21-32); CHLORIDE LEVEL 111 MEQ/L (98-107); CREATININE FOR GFR 0.86 MG/DL (0.70-1.30); GLOMERULAR FILTRATION RATE > 60.0 (>42); GLUCOSE, FASTING 163 MG/DL (70-100); POTASSIUM SERUM 3.6 MEQ/L (3.5-5.1); SODIUM LEVEL 143 MEQ/L (136-145); TOTAL PROTEIN 5.5 GM/DL (6.4-8.2)
[2019-06-27] MEDS: HumaLOG INSULIN (NovoLOG) PER UNIT SC SCH ×4 (07:53→21:00)
[2019-06-27] MEDS: MAGNESIUM CHLORIDE 64 MG TABCR (SLO MAG) PO SCH (07:54)
[2019-06-27] MEDS: TAVALISSE PO SCH ×2 (07:54→21:44)
[2019-06-27] MEDS: levETIRAcetam 250MG TABLET (KEPPRA) PO SCH ×2 (07:55→21:45)
[2019-06-27] MEDS: POTASSIUM CHLORIDE 10 MEQ SR TABLET PO SCH ×2 (07:55→21:45)
[2019-06-27] MEDS: DICLOFENAC EPOLAMINE 1.3 % PATCH TOP SCH ×2 (07:55→21:44)
[2019-06-27] MEDS: PRAVASTATIN 20 MG TAB PO SCH (07:56)
[2019-06-27] MEDS: LISINOPRIL 20 MG TAB PO SCH (07:56)
[2019-06-27] MEDS: TAMSULOSIN 0.4 MG CAP PO SCH (07:56)
[2019-06-27] MEDS: FAMOTIDINE 20 MG TAB PO SCH (07:57)
[2019-06-27] MEDS: GABAPENTIN 300 MG CAP PO SCH ×2 (07:57→21:45)
[2019-06-27] MEDS: DIVALPROEX 250 MG TAB PO SCH (07:57)
[2019-06-27] MEDS: IPRATROPIUM 0.5MG/ALBUTEROL 2.5MG INH SOL UD 3ML (DUONEB)(J7620) NEB SCH ×3 (08:00→20:00)
[2019-06-27] MEDS: BISOPROLOL FUMARATE 10 MG TAB PO SCH (08:02)
--- NOTE | 2019-06-27 08:38 | IPNPDOC ---
Subjective Date Seen The patient was seen on 06/27/19. Subjective Chief Complaint/HPI syncope Events since last encounter Had an episode of LOC x 5 minutes 06/26/2019 at approximately 2230. Patient today is confused, yet cooperative. MRI right shoulder states OA vs infectious process. Constitutional: Denies: Chills, Fever, Night Sweats Pulmonary: Denies: Dyspnea, Cough Cardiovascular: Denies: Chest Pain, Palpitations, Orthopnea, Paroxysmal Noc. Dyspnea, Edema, Lt Headedness, Other Symptoms Gastrointestinal: Denies: Nausea, Vomiting, Abdominal Pain, Diarrhea, Constipation Genitourinary: Denies: Dysuria, Frequency, Incontinence, Retention Objective Physical Examination General Exam: Positive: Alert (communicating, speech clear: pleasantly confused), No Acute Distress Eye Exam: Positive: PERRLA, Conjunctiva & lids normal Neck Exam: Positive: Supple; Negative: thyromegaly Chest Exam: Positive: Clear to auscultation, Normal air movement Heart Exam: Positive: Rate Normal, Regular Rhythm, Normal S1, Normal S2; Negative: Murmurs, Rubs Abdomen Exam: Positive: Normal bowel sounds, Soft; Negative: Tenderness, Hepatospenomegaly Extremity Exam: Positive: Normal pulses, Swelling (RUE); Negative: Clubbing, Cyanosis, Edema Skin Exam: Positive: Other skin issue (wounds are improving.) Neuro Exam: Positive: Other (alert to self and family. ) Psych Exam: Negative: Mental status NL (confused about location and recent events. recognizes me and his who is present in his room at this time.), Mood NL (tells me that he wants to , that he has had a full life and doesn't want to spend the rest of his life taking pills, he wants to go home so no one is telling him what to do and take.) Assessment /Plan Problems (1) Urinary retention Status: Acute Problem Text: tc TOV remains on tamsul 0.4 QHS 06/18 FC placed 2 retention 06/18 UCX NG (2) MSSA (methicillin susceptible Staphylococcus aureus) Status: Acute Problem Text: cefazolin 2 q8H (given ho AVR) (prior 4D vanco)-emperic rx for MSSA IE/ R septic shoulder 06/27 AF, WBC 4.5, CRP 8 (9, 8/ 14) 8/ sp R PICC, 06/25/19 removed as per cephalic v thrombus tc LEVON if condition stabilizes 06/24 BCX2 NG 06/18 BCX 12/23 MSSA-06/21 + ceftriaxone 2 gm QD 06/24/19 TTE: 1. Borderline concentric left ventricle hypertrophy. Normal regional LV wall motion and wall thickening. Normal LV systolic function. LVEF 70% by visual estimate. Grade 1 LV diastolic dysfunction (impaired relaxation filling pattern). 2. Cardiac valves were only moderately well visualized. This was a technically difficult study for assessment of vegetations. The image quality of the study was not adequate to rule out very small vegetations. 3. Moderate mitral annular calcification. Very mild mitral regurgitation. No mitral stenosis. 4. Status post aortic valve replacement with bioprosthesis which appears to be functionally normal. 5. Small pericardial effusion measuring 1.0 cm of the posterior wall of the left (3) Septic embolism Status: Acute Problem Text: 06/27/19: Had another episode of MS change last evening. Family declines repeat MRI. Would like to see how he does with abx over the next few days. possible IE c septic emboli DOAC held given no evidence of benefit prevent emboli in IE AND increased risk of hemorrhagic conversion (4) Paroxysmal atrial fibrillation Status: Chronic Response to Treatment: Stable Problem Text: per Dr. Small office notes-only known occurence was [id number] on AC for it. 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, however (5) Dementia Status: Chronic Problem Text: stable: last dose: halo 2 IM 06/21, risper 2 po 06/22 06/24 EEG mild diffuse slowing, no EA chronic sundowning c IED (favor FTD) Contingency: parox to reduce disinhibition; restart ris/halo prn 06/14 given sedation in late PM (although had been very agitated in AM), Neuro checked CT head NAD and changed risper to aripip 2 BID (given a partial DA agonist, would given low impulse control), but worst-ever agitation 06/15 AM requiring IM halo 1 x 1; therefore, changed back to risper and dced dulox 20 QHS (had been started for chronic pain) (6) Thrombosis of right cephalic vein Status: Acute Problem Text: 06/26: discussed option of midline catheter if needed for IV access for meds. no AC as per septic emboli 06/25/19 R PICC dc 06/24/19 RUE US: No sonographic evidence of deep vein thrombosis. 2. Mildly heterogeneous, and nonocclusive thrombus in the distal cephalic vein (done 2 increased R UE tumor/rubor/dolor) (7) Right shoulder pain Status: Acute Problem Text: Family/px refusing aspiration for confirmation 06/26/19 MRI R shoulder, highly suspicious for septic arthritis: 1. Severe osteoarthritis of the glenohumeral joint. Bone marrow edema signal in the bony glenoid is likely secondary to osteoarthritis. Osteomyelitis is not excluded. 2. Rotator cuff tendinopathy, as described above. 3. Fluid tracking along the posterior deltoid, subscapularis, supraspinatus and infraspinatus muscles is nonspecific. This may be seen in the setting of trauma, as well as infectious myopathy. Clinical correlation is needed. 4. Glenohumeral joint effusion with synovitis. Septic arthritis is not excluded. Consider joint aspiration. 5. Subscapularis bursitis with synovitis, nonspecific. Septic bursitis is not excluded. (8) Seizure-like activity Status: Acute Problem Text: 06/26: EEG does not show seizure activity. no further rigidity 06/24 generalized rigidity cw TC sz activity; therefore, + leve 500 BID-favor 2 new emboli (9) Cerebrovascular accident, embolic Status: Acute Problem Text: 06/23: due to strong suspicion for septic emboli (mri findings and positive blood culture for S aureus) and absent confirmation of Afib, and concern expressed by Dr. Santamaria for prudence of anticoagulation in the setting of septic emboli; therefore, dced rivarox-last dose 06/23/19 8: continue to show dementia features c/w multi-infarct dementia. 06/14 changed LMWH to rivarox 06/13 presumptive AF, but none documented since admission on tele; long dw who will attempt to arrange 12/06 coverage for px to dc home 06/13 given embolic CVA; restart tele, + therapeutic LMWH 06/13/19 MRA brain/carotids s significant stenosis 06/13/19 MRI brain: Numerous small foci of restricted diffusion with associated ADC dropout throughout the bilateral cerebral hemispheres, measuring up to 11 x 8 mm in the right occipital lobe. (not appreciated by 06/11 CT head) 06/10 TTE: 1. Normal appearing and well seated aortic valve bioprosthesis. No aortic stenosis or regurgitation. 2. Mild concentric left ventricle hypertrophy. Normal regional left ventricular (LV) wall motion and wall thickening. Normal LV systolic function. Left ventricular ejection fraction (LVEF) 70% by visual estimate. Grade 1 LV diastolic dysfunction. Normal left atrial size and left atrial volume index. 3. Moderate mitral annular calcification. No mitral regurgitation or stenosis. 4. Normal right ventricle size and systolic function. 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 Lamb caution now on DOAC 07/14 226K 06/16 stable at 127K (15) PVD (peripheral vascular disease) Status: Chronic Problem Text: 06/10/19 BLE art US The there is diffuse atheromatous plaque bilaterally. On the right there is stenosis from the mid to distal SFA and stenosis in the distal NURSE EXECUTIVE. On the left there is stenosis in the distal SFA and stenosis in the proximal NURSE EXECUTIVE. (16) Chronic wound of extremity Status: Chronic Problem Text: 06/22: improving. 06/17/19: Dressing changes per Dr. Sanchez's recommendations per Laura: continued Vashe wound cleanser QD covered then with Santyl nickel thick and a foam dressing. Dressing changes can be on an every other day basis. Tubigrip stockings should be utilized BLE (17) Hx of aortic valve replacement Status: Chronic Problem Text: TTE as per MSSA sepsis (18) Colon cancer Status: Chronic Response to Treatment: Stable Problem Text: sp R colectomy PARESH Plan/VTE VTE Prophylaxis Ordered?: Yes (Xarelto ) VTE Exclusion Pharmacological: Thrombocytopenia Plan Anticipated Discharge: [facility]it[facility]iary VS, I&O, 24H, Fishbone Vital Signs/I&O Vital Signs Date Time Temp Pulse Resp B/P (MAP) Pulse Ox O2 Delivery O2 Flow Rate FiO2 06/27/19 06:00 98.4 77 17 150/72 (98) 97 I&O- Last 24 Hours up to 6 AM 06/27/19 05:59 Intake Total 1600 ml Output Total 1150 ml Balance 450 ml Laboratory Data 24H LABS Laboratory Tests 2 06/26/19 11:37: Bedside Glucose (Misc Panel) 183H 06/26/19 16:22: Bedside Glucose (Misc Panel) 210H 06/26/19 20:57: Bedside Glucose (Misc Panel) 147H 06/27/19 05:42: Immature Granulocyte % (Auto) 0.2, White Blood Count 4.5, Red Blood Count 3.47L, Hemoglobin 10.3L, Hematocrit 31.8L, Mean Corpuscular Volume 91.6, Mean Corpuscular Hemoglobin 29.7, Mean Corpuscular Hemoglobin Concent 32.4, Red Cell Distribution Width 13.9, Platelet Count 189, Neutrophils (%) (Auto) 56.1, Lymphocytes (%) (Auto) 32.8, Monocytes (%) (Auto) 7.8H, Eosinophils (%) (Auto) 2.4, Basophils (%) (Auto) 0.7, Neutrophils # (Auto) 2.5, Lymphocytes # (Auto) 1.5, Monocytes # (Auto) 0.4, Eosinophils # (Auto) 0.1, Basophils # (Auto) 0.0, Nucleated Red Blood Cells % (auto) 0.0, Anion Gap 6L, Glomerular Filtration Rate > 60.0, Blood Urea Nitrogen 7, Creatinine 0.86, Sodium Level 143, Potassium Level 3.6, Chloride Level 111H, Carbon Dioxide Level 26, Calcium Level 8.5L, Aspartate Amino Transf (AST/SGOT) 20, Alanine Aminotransferase (ALT/SGPT) 10L, Alkaline Phosphatase 114, Total Bilirubin 0.3, Total Protein 5.5L, Albumin 1.8L, C-Reactive Protein, Quantitative 8.07H, Albumin/Globulin Ratio 0.49L CBC/BMP Laboratory Tests 06/27/19 05:42 Red Blood Count 3.47 L, Mean Corpuscular Volume 91.6, Mean Corpuscular Hemoglobin 29.7, Mean Corpuscular Hemoglobin Concent 32.4, Red Cell Distribution Width 13.9, Neutrophils (%) (Auto) 56.1, Lymphocytes (%) (Auto) 32.8, Monocytes (%) (Auto) 7.8 H, Eosinophils (%) (Auto) 2.4, Basophils (%) (Auto) 0.7, Neutrophils # (Auto) 2.5, Lymphocytes # (Auto) 1.5, Monocytes # (Auto) 0.4, Eosinophils # (Auto) 0.1, Basophils # (Auto) 0.0, Calcium Level 8.5 L, Aspartate Amino Transf (AST/SGOT) 20, Alanine Aminotransferase (ALT/SGPT) 10 L, Alkaline Phosphatase 114, Total Bilirubin 0.3, Total Protein 5.5 L, Albumin 1.8 L Microbiology Microbiology 06/24/19 Blood Culture - Preliminary, Resulted No Growth after 48 hours. All Specime... 06/24/19 Blood Culture - Preliminary, Resulted No Growth after 48 hours. All Specime... 06/19/19 Blood Culture - Final, Complete NO GROWTH AFTER 5 DAYS 06/19/19 Blood Culture - Final, Complete Staphylococcus Aureus 06/18/19 Blood Culture - Final, Complete Staphylococcus Aureus 06/18/19 Urine Culture - Final, Complete 06/18/19 Gram Stain - Final, Complete 06/18/19 Wound Culture - Final, Complete Bacillus Sp., Not Anthracis Xenia Alvarado Jun 27, 2019 08:38 Cristi Carroll M.D. Jun 27, 2019 17:30
--- NOTE | 2019-06-27 08:45 | ECGEPIP ---
[facility] Test Date: 2019-06-27 Pat Name: OMID JACKSON Department: Room: [place] [address] Gender: Male Strategic Planning Manager: : 1940 Requested By: Blaine Drew Order Number: [id number] Reading MD: Zeus Freed Measurements Intervals [place] Rate: 71 P: -14 HI: 138 QRS: -30 QRSD: 94 T: 30 QT: 417 QTc: 456 Interpretive Statements Normal sinus rhythm with PACs Left axis deviation Incomplete right bundle branch block Delayed anterior R wave progression Nonspecific ST-T wave abnormalities No significant change when compared to prior tracing of 06/22/2019 Electronically Signed on 06-27-2019 8:45:14 EDT by Zeus Freed
[2019-06-27 14:00] VITALS: BP 141/67
[2019-06-27 18:00] VITALS: BP 140/77
[2019-06-27] MEDS: LATANOPROST 0.005% OPHTH SOLN 2.5 ML OU SCH (21:00)
[2019-06-27 22:00] VITALS: BP 175/73
[2019-06-28] MEDS: ceFAZolin SOD 2 GM in IV 1 EA IV SCH ×3 (01:06→18:09)
[2019-06-28 02:00] VITALS: BP 168/55
[2019-06-28 06:00] VITALS: BP 152/69
[2019-06-28 07:28] LABS: BASO % 0.6 % (0.0-1.0); EOS # 0.1 10^3/uL (0.0-0.50); EOS % 1.2 % (0.0-3.0); HEMATOCRIT 32.5 % (42.0-52.0); HEMOGLOBIN 10.6 g/dl (13.5-17.5); LYMPH # 1.5 10^3/uL (1.5-4.5); LYMPH % 30.4 % (24.0-44.0); MEAN CORPUSCULAR HGB CONC 32.6 g/dl (32.0-36.5); MEAN CORPUSCULAR VOLUME 92.1 fl (80.0-96.0); MONO # 0.3 10^3/uL (0.0-0.8); MONO % 6.2 % (0.0-5.0); NEUTROPHILS % 61.2 % (36.0-66.0); PLATELET COUNT, AUTOMATED 197 10^3/uL (150-450); RED BLOOD COUNT 3.53 10^6/uL (4.30-6.10)
[2019-06-28 07:57] LABS: ALBUMIN 1.9 GM/DL (3.2-5.2); ALT/SGPT 9 U/L (12-78); BILIRUBIN,TOTAL 0.3 MG/DL (0.2-1.0); BLOOD UREA NITROGEN 5 MG/DL (7-18); C REACTIVE PROTEIN QUANTITATIV 5.93 MG/DL (0.00-0.30); CALCIUM LEVEL 8.9 MG/DL (8.8-10.2); CARBON DIOXIDE LEVEL 26 MEQ/L (21-32); CHLORIDE LEVEL 110 MEQ/L (98-107); CREATININE FOR GFR 0.88 MG/DL (0.70-1.30); GLOMERULAR FILTRATION RATE > 60.0 (>42); GLUCOSE, FASTING 143 MG/DL (70-100); POTASSIUM SERUM 3.8 MEQ/L (3.5-5.1); SODIUM LEVEL 142 MEQ/L (136-145); TOTAL PROTEIN 5.6 GM/DL (6.4-8.2)
[2019-06-28] MEDS: IPRATROPIUM 0.5MG/ALBUTEROL 2.5MG INH SOL UD 3ML (DUONEB)(J7620) NEB SCH ×3 (08:00→20:00)
[2019-06-28] MEDS: HumaLOG INSULIN (NovoLOG) PER UNIT SC SCH ×4 (08:46→21:00)
[2019-06-28] MEDS: FAMOTIDINE 20 MG TAB PO SCH (08:47)
[2019-06-28] MEDS: POTASSIUM CHLORIDE 10 MEQ SR TABLET PO SCH ×2 (08:47→21:00)
[2019-06-28] MEDS: TAMSULOSIN 0.4 MG CAP PO SCH (08:47)
[2019-06-28] MEDS: LISINOPRIL 20 MG TAB PO SCH (08:47)
[2019-06-28] MEDS: levETIRAcetam 250MG TABLET (KEPPRA) PO SCH ×2 (08:47→21:00)
[2019-06-28] MEDS: GABAPENTIN 300 MG CAP PO SCH ×2 (08:47→21:00)
[2019-06-28] MEDS: BISOPROLOL FUMARATE 10 MG TAB PO SCH (08:47)
[2019-06-28] MEDS: PRAVASTATIN 20 MG TAB PO SCH (08:47)
[2019-06-28] MEDS: MAGNESIUM CHLORIDE 64 MG TABCR (SLO MAG) PO SCH (08:48)
[2019-06-28] MEDS: TAVALISSE PO SCH ×2 (08:48→21:00)
[2019-06-28] MEDS: DICLOFENAC EPOLAMINE 1.3 % PATCH TOP SCH ×2 (08:49→21:00)
[2019-06-28] MEDS: DIVALPROEX 250 MG TAB PO SCH (08:51)
--- NOTE | 2019-06-28 09:34 | IPNPDOC ---
Subjective Date Seen The patient was seen on 06/28/19. Subjective Chief Complaint/HPI Pt this morning c/o being poked all the time, he really wants that to stop. His and dgt are at bedside and without new concerns today. They are in agreement with PICC placement later today. General: Reports: Fatigue Constitutional: Denies: Chills, Fever ENT: Denies: Head Aches Pulmonary: Denies: Dyspnea, Cough Cardiovascular: Denies: Chest Pain, Palpitations Gastrointestinal: Denies: Nausea, Vomiting, Diarrhea Neurological: Reports: Weakness Psych: Reports: Memory Issues Objective Physical Examination General Exam: Positive: Alert (communicating, speech clear: pleasantly confused), No Acute Distress Neck Exam: Positive: Supple; Negative: thyromegaly Chest Exam: Positive: Clear to auscultation, Normal air movement Heart Exam: Positive: Rate Normal, Regular Rhythm, Normal S1, Normal S2; Negative: Murmurs, Rubs Abdomen Exam: Positive: Normal bowel sounds, Soft; Negative: Tenderness, Hepatospenomegaly Extremity Exam: Positive: Normal pulses, Swelling (RUE); Negative: Clubbing, Cyanosis, Edema Skin Exam: Positive: Other skin issue (wounds are improving.) Neuro Exam: Positive: Other (alert to self and family. ) Psych Exam: Negative: Mental status NL (confused about location and recent events. recognizes me and his who is present in his room at this time.), Mood NL (tells me that he wants to , that he has had a full life and doesn't want to spend the rest of his life taking pills, he wants to go home so no one is telling him what to do and take.) Assessment /Plan Problems (1) MSSA (methicillin susceptible Staphylococcus aureus) Status: Acute Problem Text: D5/38 cefazolin 2 q8H (given ho AVR) (prior 4D vanco)-emperic rx for MSSA IE/ R septic shoulder 06/29 L PICC placed per 's request-obvious HIGH risk of patient pulling out and/or recurrent DVT 06/28 AF, WBC 4.5, CRP 6 (8) (06/24/19 14) 8 sp R PICC, 06/25/19 removed as per cephalic v thrombus tc LEVON if condition stabilizes 06/24 BCX2 NG 7/30 BCX / MSSA-06/21 + ceftriaxone 2 gm QD 06/24/19 TTE: 1. Borderline concentric left ventricle hypertrophy. Normal regional LV wall motion and wall thickening. Normal LV systolic function. LVEF 70% by visual estimate. Grade 1 LV diastolic dysfunction (impaired relaxation filling pattern). 2. Cardiac valves were only moderately well visualized. This was a technically difficult study for assessment of vegetations. The image quality of the study was not adequate to rule out very small vegetations. 3. Moderate mitral annular calcification. Very mild mitral regurgitation. No mitral stenosis. 4. Status post aortic valve replacement with bioprosthesis which appears to be functionally normal. 5. Small pericardial effusion measuring 1.0 cm of the posterior wall of the left (2) Urinary retention Status: Acute Problem Text: tc TOV remains on tamsul 0.4 QHS 06/18 FC placed 2 retention 06/18 UCX NG (3) Septic embolism Status: Acute Problem Text: 06/27/19: Had another episode of MS change last evening. Family declines repeat MRI. Would like to see how he does with abx over the next few days. possible IE c septic emboli DOAC held given no evidence of benefit prevent emboli in IE AND increased risk of hemorrhagic conversion (4) Paroxysmal atrial fibrillation Status: Chronic Response to Treatment: Stable Problem Text: per Dr. Small office notes-only known occurence was [id number] on AC for it. 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, however (5) Dementia Status: Chronic Problem Text: stable: last dose: halo 2 IM 06/21, risper 2 po 06/22 06/24 EEG mild diffuse slowing, no EA chronic sundowning c IED (favor FTD) Contingency: parox to reduce disinhibition; restart ris/halo prn 06/14 given sedation in late PM (although had been very agitated in AM), Neuro checked CT head NAD and changed risper to aripip 2 BID (given a partial DA agonist, would given low impulse control), but worst-ever agitation 06/15 AM requiring IM halo 1 x 1; therefore, changed back to risper and dced dulox 20 QHS (had been started for chronic pain) (6) Thrombosis of right cephalic vein Status: Acute Problem Text: no AC as per septic emboli 06/25/19 R PICC dc 06/24/19 RUE US: No sonographic evidence of deep vein thrombosis. 2. Mildly heterogeneous, and nonocclusive thrombus in the distal cephalic vein (done 2 increased R UE tumor/rubor/dolor) (7) Right shoulder pain Status: Acute Problem Text: Family/px refusing aspiration for confirmation 06/26/19 MRI R shoulder, highly suspicious for septic arthritis: 1. Severe osteoarthritis of the glenohumeral joint. Bone marrow edema signal in the bony glenoid is likely secondary to osteoarthritis. Osteomyelitis is not excluded. 2. Rotator cuff tendinopathy, as described above. 3. Fluid tracking along the posterior deltoid, subscapularis, supraspinatus and infraspinatus muscles is nonspecific. This may be seen in the setting of trauma, as well as infectious myopathy. Clinical correlation is needed. 4. Glenohumeral joint effusion with synovitis. Septic arthritis is not excluded. Consider joint aspiration. 5. Subscapularis bursitis with synovitis, nonspecific. Septic bursitis is not excluded. (8) Seizure-like activity Status: Acute Problem Text: No recurrent rigidity on leve 500 BID 06/26 EEG generalized slowing s EA no further rigidity 06/24 generalized rigidity cw TC sz activity; therefore, + leve 500 BID-favor 2 new emboli (9) Cerebrovascular accident, embolic Status: Acute Problem Text: 06/23: due to strong suspicion for septic emboli (mri findings and positive blood culture for S aureus) and absent confirmation of Afib, and co ncern expressed by Dr. 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 06/14 changed LMWH to rivarox 06/13 presumptive AF, but none documented since admission on tele; long dw who will attempt to arrange 12/06 coverage for px to dc home 06/13 given embolic CVA; restart tele, + therapeutic LMWH 06/13/19 MRA brain/carotids s significant stenosis 06/13/19 MRI brain: Numerous small foci of restricted diffusion with associated ADC dropout throughout the bilateral cerebral hemispheres, measuring up to 11 x 8 mm in the right occipital lobe. (not appreciated by 06/11 CT head) 06/10 TTE: 1. Normal appearing and well seated aortic valve bioprosthesis. No aortic stenosis or regurgitation. 2. Mild concentric left ventricle hypertrophy. Normal regional left ventricular (LV) wall motion and wall thickening. Normal LV systolic function. Left ventricular ejection fraction (LVEF) 70% by visual estimate. Grade 1 LV diastolic dysfunction. Normal left atrial size and left atrial volume index. 3. Moderate mitral annular calcification. No mitral regurgitation or stenosis. 4. Normal right ventricle size and systolic function. 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 Lamb caution now on DOAC 07/14 226K 06/16 stable at 127K (14) PVD (peripheral vascular disease) Status: Chronic Problem Text: 06/10/19 BLE art US The there is diffuse atheromatous plaque bilaterally. On the right there is stenosis from the mid to distal SFA and stenosis in the distal CABLE SPOOLER. On the left there is stenosis in the distal SFA and stenosis in the proximal CABLE SPOOLER. (15) Chronic wound of extremity Status: Chronic Problem Text: 06/22: improving. 06/17/19: Dressing changes per Dr. Sanchez's recommendations per Laura: continued Vashe wound cleanser QD covered then with Santyl nickel thick and a foam dressing. Dressing changes can be on an every other day basis. Tubigrip stockings should be utilized BLE (16) Hx of aortic valve replacement Status: Chronic Problem Text: TTE as per MSSA sepsis (17) Colon cancer Status: Chronic Response to Treatment: Stable Problem Text: sp R colectomy PARESH Plan/VTE VTE Prophylaxis Ordered?: Yes (Xarelto ) VTE Exclusion Pharmacological: Thrombocytopenia Plan Anticipated Discharge: Snf VS, I&O, 24H, Fishbone Vital Signs/I&O Vital Signs Date Time Temp Pulse Resp B/P (MAP) Pulse Ox O2 Delivery O2 Flow Rate FiO2 8/9/19 08:47 162/72 06/28/19 08:47 77 06/28/19 06:00 97.0 18 98 I&O- Last 24 Hours up to 6 AM 06/28/19 05:59 Intake Total 770 ml Output Total 1000 ml Balance -230 ml Laboratory Data 24H LABS Laboratory Tests 2 06/27/19 12:09: Bedside Glucose (Misc Panel) 189H 06/27/19 17:17: Bedside Glucose (Misc Panel) 162H 06/27/19 21:44: Bedside Glucose (Misc Panel) 175H 06/28/19 07:16: Immature Granulocyte % (Auto) 0.4, White Blood Count 5.0, Red Blood Count 3.53L, Hemoglobin 10.6L, Hematocrit 32.5L, Mean Corpuscular Volume 92.1, Mean Corpuscular Hemoglobin 30.0, Mean Corpuscular Hemoglobin Concent 32.6, Red Cell Distribution Width 13.6, Platelet Count 197, Neutrophils (%) (Auto) 61.2, Lymphocytes (%) (Auto) 30.4, Monocytes (%) (Auto) 6.2H, Eosinophils (%) (Auto) 1.2, Basophils (%) (Auto) 0.6, Neutrophils # (Auto) 3.0, Lymphocytes # (Auto) 1.5, Monocytes # (Auto) 0.3, Eosinophils # (Auto) 0.1, Basophils # (Auto) 0.0, Nucleated Red Blood Cells % (auto) 0.0, Anion Gap 6L, Glomerular Filtration Rate > 60.0, Blood Urea Nitrogen 5L, Creatinine 0.88, Sodium Level 142, Potassium Level 3.8, Chloride Level 110H, Carbon Dioxide Level 26, Calcium Level 8.9, A spartate Amino Transf (AST/SGOT) 21, Alanine Aminotransferase (ALT/SGPT) 9L, Alkaline Phosphatase 109, Total Bilirubin 0.3, Total Protein 5.6L, Albumin 1.9L, C-Reactive Protein, Quantitative 5.93H, Albumin/Globulin Ratio 0.51L CBC/BMP Laboratory Tests 06/28/19 07:16 Red Blood Count 3.53 L, Mean Corpuscular Volume 92.1, Mean Corpuscular Hemoglobin 30.0, Mean Corpuscular Hemoglobin Concent 32.6, Red Cell Distribution Width 13.6, Neutrophils (%) (Auto) 61.2, Lymphocytes (%) (Auto) 30.4, Monocytes (%) (Auto) 6.2 H, Eosinophils (%) (Auto) 1.2, Basophils (%) (Auto) 0.6, Neutroph ils # (Auto) 3.0, Lymphocytes # (Auto) 1.5, Monocytes # (Auto) 0.3, Eosinophils # (Auto) 0.1, Basophils # (Auto) 0.0, Calcium Level 8.9, Aspartate Amino Transf (AST/SGOT) 21, Alanine Aminotransferase (ALT/SGPT) 9 L, Alkaline Phosphatase 109, Total Bilirubin 0.3, Total Protein 5.6 L, Albumin 1.9 L Microbiology Microbiology 06/24/19 Blood Culture - Preliminary, Resulted No Growth after 72 hours. All specime... 06/24/19 Blood Culture - Preliminary, Resulted No Growth after 72 hours. All specime... 06/19/19 Blood Culture - Final, Complete NO GROWTH AFTER 5 DAYS 06/19/19 Blood Culture - Final, Complete Staphylococcus Aureus 06/18/19 Blood Culture - Final, Complete Staphylococcus Aureus 06/18/19 Urine Culture - Final, Complete 06/18/19 Gram Stain - Final, Complete 06/18/19 Wound Culture - Final, Complete Bacillus Sp., Not Anthracis FRANCIS RAMACHANDRAN PA-C Jun 28, 2019 09:34 Cristi Carroll M.D. Jun 28, 2019 16:45
[2019-06-28] MEDS ORDERED: LIDOCAINE 1% MDV 20ML VIAL As Ordered ONE (16:45)
[2019-06-28] MEDS: PANTOPRAZOLE 40MG TAB (PROTONIX) PO SCH (18:00)
--- NOTE | 2019-06-28 18:57 | IPN ---
DATE: 06/27/2019 Mr. Samano continues to have episodes of confusion and t shoulder pain. He had an MRI of his right shoulder, which was concerning for a joint effusion at the glenohumeral joint and soft tissue edema. did not want to pursue any surgical or aspiration intervention. The patient has not had any fever or chills. He denies any cough, shortness of breath, or chest pain. His only complaint is whenever his arm is moved he has significant pain. PHYSICAL EXAMINATION: Temperature is 98.3, pulse 94, respirations 12, blood pressure 140/77, oxygen saturation 96% on room air. HEART: Normal S1, S2 distant. LUNGS: Diminished breath sounds at the bases but clear. ABDOMEN: Obese, soft, nontender with a healed midline scar. EXTREMITIES: Trace edema bilaterally. Arm: Right arm is swollen. Very limited abduction. The patient refuses to move it. Left arm normal range of motion. MENTAL STATUS: The patient intermittently confused but answers questions appropriately. Very forgetful though. LABORATORY DATA: White count is 4.5, hemoglobin 10.3, hematocrit 31.8, platelets 189, ESR 74. Sodium 143, potassium 3.6, chloride 111, bicarbonate 26, BUN 7, creatinine 0.86, glucose 163, calcium 8.6. AST 20, ALT 10, alkaline phosphatase 114, CRP 13.7, down to 8.07. Blood cultures: Methicillin-sensitive Staphylococcus aureus (MSSA) on June 19 and June 18, negative of June 24. IMAGING STUDY: MRI of shoulder shows a glenohumeral effusion and soft tissue edema of the supraspinatus, deltoid, scapularis with fluid tracking along those muscles. IMPRESSION: 1. Rotator cuff tendinopathy. 2. Staphylococcus aureus sepsis and bacteremia with septic emboli. Source remains unclear, but at this point I suspect he might have a septic arthritis of the right shoulder with surrounding possible myositis. The patient has very limited range of motion. Family did not agree on intervention. I did call his and left a message on the answering machine and stated that this needed to be pursued, otherwise the patient may have worsening infection, destruction of the joint, and possibly more septic emboli. 3. Superficial deep vein thrombosis (DVT) of right arm. 4. Status post porcine aortic valve replacement The patient will automatically have 6 weeks of intravenous (IV) cefazolin. He will need a followup echocardiogram in 6 weeks after antibiotics are finished. PLAN: Suggest obtaining consultation with orthopedic surgery for input. As previously mentioned, case discussed with Dr. Carroll, and his was called and left a message on the machine. BERTA
[2019-06-28] MEDS: NORCO, ANEXSIA 5/325MG TABLET (HYDROcodone/ACETAMINOPHEN) PO PRN (19:31)
[2019-06-28] MEDS: NS 1,000 ML IV SCH (19:41)
[2019-06-28] MEDS: LATANOPROST 0.005% OPHTH SOLN 2.5 ML OU SCH (21:00)
[2019-06-28 22:00] VITALS: BP 144/95
[2019-06-29 02:00] VITALS: BP 140/80
[2019-06-29] MEDS: ceFAZolin SOD 2 GM in IV 1 EA IV SCH ×3 (02:01→18:29)
[2019-06-29] MEDS: NORCO, ANEXSIA 5/325MG TABLET (HYDROcodone/ACETAMINOPHEN) PO PRN (05:29)
[2019-06-29 06:00] VITALS: BP 135/81
[2019-06-29 06:55] LABS: BASO % 0.4 % (0.0-1.0); EOS # 0.1 10^3/uL (0.0-0.50); EOS % 1.6 % (0.0-3.0); HEMATOCRIT 32.1 % (42.0-52.0); HEMOGLOBIN 10.4 g/dl (13.5-17.5); LYMPH # 1.2 10^3/uL (1.5-4.5); LYMPH % 27.2 % (24.0-44.0); MEAN CORPUSCULAR HGB CONC 32.4 g/dl (32.0-36.5); MEAN CORPUSCULAR VOLUME 92.5 fl (80.0-96.0); MONO # 0.3 10^3/uL (0.0-0.8); MONO % 5.6 % (0.0-5.0); NEUTROPHILS # 2.9 10^3/uL (1.8-7.7); NEUTROPHILS % 64.8 % (36.0-66.0); PLATELET COUNT, AUTOMATED 178 10^3/uL (150-450); RED BLOOD COUNT 3.47 10^6/uL (4.30-6.10); WHITE BLOOD COUNT 4.5 10^3/uL (4.0-10.0)
[2019-06-29 07:21] LABS: ALBUMIN 2.1 GM/DL (3.2-5.2); ALT/SGPT 7 U/L (12-78); BILIRUBIN,TOTAL 0.4 MG/DL (0.2-1.0); BLOOD UREA NITROGEN 6 MG/DL (7-18); C REACTIVE PROTEIN QUANTITATIV 5.16 MG/DL (0.00-0.30); CALCIUM LEVEL 8.8 MG/DL (8.8-10.2); CARBON DIOXIDE LEVEL 27 MEQ/L (21-32); CHLORIDE LEVEL 110 MEQ/L (98-107); CREATININE FOR GFR 0.84 MG/DL (0.70-1.30); GLOMERULAR FILTRATION RATE > 60.0 (>42); GLUCOSE, FASTING 134 MG/DL (70-100); POTASSIUM SERUM 3.8 MEQ/L (3.5-5.1); SODIUM LEVEL 143 MEQ/L (136-145); TOTAL PROTEIN 5.1 GM/DL (6.4-8.2)
[2019-06-29] MEDS: IPRATROPIUM 0.5MG/ALBUTEROL 2.5MG INH SOL UD 3ML (DUONEB)(J7620) NEB SCH ×3 (07:43→21:50)
[2019-06-29] MEDS: HumaLOG INSULIN (NovoLOG) PER UNIT SC SCH ×4 (08:54→21:00)
[2019-06-29 10:38] VITALS: BP 146/65
[2019-06-29] MEDS: MAGNESIUM CHLORIDE 64 MG TABCR (SLO MAG) PO SCH (11:36)
[2019-06-29] MEDS: POTASSIUM CHLORIDE 10 MEQ SR TABLET PO SCH ×3 (11:38→22:54)
[2019-06-29] MEDS: BISOPROLOL FUMARATE 10 MG TAB PO SCH (11:38)
[2019-06-29] MEDS: TAMSULOSIN 0.4 MG CAP PO SCH (11:39)
[2019-06-29] MEDS: PRAVASTATIN 20 MG TAB PO SCH (11:39)
[2019-06-29] MEDS: LISINOPRIL 20 MG TAB PO SCH (11:39)
[2019-06-29] MEDS: GABAPENTIN 300 MG CAP PO SCH ×3 (11:39→22:55)
[2019-06-29] MEDS: PANTOPRAZOLE 40MG TAB (PROTONIX) PO SCH ×3 (11:40→22:54)
[2019-06-29] MEDS: DIVALPROEX 250 MG TAB PO SCH (11:40)
[2019-06-29] MEDS: FAMOTIDINE 20 MG TAB PO SCH (11:41)
[2019-06-29] MEDS: levETIRAcetam 250MG TABLET (KEPPRA) PO SCH ×3 (11:41→22:54)
[2019-06-29] MEDS: TAVALISSE PO SCH ×3 (11:42→22:54)
[2019-06-29] MEDS: DICLOFENAC EPOLAMINE 1.3 % PATCH TOP SCH ×3 (11:42→22:55)
[2019-06-29] MEDS: NS 1,000 ML IV SCH ×2 (12:45→21:37)
--- NOTE | 2019-06-29 14:30 | IPNPDOC ---
Subjective Date Seen The patient was seen on 06/29/19. Subjective Chief Complaint/HPI at baseline MS Constitutional: Denies: Chills Eyes: Denies: Pain ENT: Denies: Head Aches Skin: Denies: Rash Pulmonary: Denies: Dyspnea, Cough Cardiovascular: Denies: Chest Pain, Palpitations Gastrointestinal: Denies: Nausea, Vomiting Genitourinary: Denies: Dysuria Objective Physical Examination General Exam: Positive: Alert (communicating, speech clear: pleasantly confused), No Acute Distress Neck Exam: Positive: Supple; Negative: thyromegaly Chest Exam: Positive: Clear to auscultation, Normal air movement Heart Exam: Positive: Rate Normal, Regular Rhythm, Normal S1, Normal S2; Negative: Murmurs, Rubs Abdomen Exam: Positive: Normal bowel sounds, Soft; Negative: Tenderness, Hepatospenomegaly Extremity Exam: Positive: Normal pulses, Swelling (RUE); Negative: Clubbing, Cyanosis, Edema Skin Exam: Positive: Other skin issue (wounds are improving.) Neuro Exam: Positive: Other (alert to self and family. ) Psych Exam: Negative: Mental status NL (confused about location and recent events. recognizes me and his who is present in his room at this time.), Mood NL (tells me that he wants to , that he has had a full life and doesn't want to spend the rest of his life taking pills, he wants to go home so no one is telling him what to do and take.) Assessment /Plan Problems (1) Dyspepsia Status: Acute Problem Text: 06/29 + panto 40 BID, + Mylanta 30 q6H prn, ondan 4 qHprn (2) MSSA (methicillin susceptible Staphylococcus aureus) Status: Acute Problem Text: cefazolin 2 q8H (given ho AVR) (prior 4D vanco)-emperic rx for MSSA IE/ R septic shoulder 06/29 L PICC placed per 's request-obvious HIGH risk of patient pulling out and/or recurrent DVT 06/29 AF, WBC 4.5, CRP 5.2 (5.9) (06/24/19 14) 8/ sp R PICC, 06/25/19 removed as per cephalic v thrombus tc LEVON if condition stabilizes 06/24 BCX2 NG 06/18 BCX /3 MSSA-06/21 + ceftriaxone 2 gm QD 06/24/19 TTE: 1. Borderline concentric left ventricle hypertrophy. Normal regional LV wall motion and wall thickening. Normal LV systolic function. LVEF 70% by visual estimate. Grade 1 LV diastolic dysfunction (impaired relaxation filling pattern). 2. Cardiac valves were only moderately well visualized. This was a technically difficult study for assessment of vegetations. The image quality of the study was not adequate to rule out very small vegetations. 3. Moderate mitral annular calcification. Very mild mitral regurgitation. No mitral stenosis. 4. Status post aortic valve replacement with bioprosthesis which appears to be functionally normal. 5. Small pericardial effusion measuring 1.0 cm of the posterior wall of the left (3) Urinary retention Status: Acute Problem Text: tc TOV remains on tamsul 0.4 QHS 06/18 FC placed 2 retention 06/18 UCX NG (4) Septic embolism Status: Acute Problem Text: suspicious of IE c septic emboli 06/27 similar MS change, but deferred repeat MRI 06/23 MS change c new B septic emboli by MRI DOAC held given no evidence of benefit prevent emboli in IE AND increased risk of hemorrhagic conversion (5) Paroxysmal atrial fibrillation Status: Chronic Response to Treatment: Stable Problem Text: per Dr. Small office notes-only known occurence was [id number] on AC for it. 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, however (6) Dementia Status: Chronic Problem Text: stable: last dose: halo 2 IM 06/21, risper 2 po 06/22 06/24 EEG mild diffuse slowing, no EA chronic sundowning c IED (favor FTD) Contingency: parox to reduce disinhibition; restart ris/halo prn 06/14 given sedation in late PM (although had been very agitated in AM), Neuro ch ecked CT head NAD and changed risper to aripip 2 BID (given a partial DA agonist, would given low impulse control), but worst-ever agitation 06/15 AM requiring IM halo 1 x 1; therefore, changed back to risper and dced dulox 20 QHS (had been started for chronic pain) (7) Thrombosis of right cephalic vein Status: Acute Problem Text: no AC as per septic emboli 06/25/19 R PICC dc 06/24/19 RUE US: No sonographic evidence of deep vein thrombosis. 2. Mildly heterogeneous, and nonocclusive thrombus in the distal cephalic vein (done 2 increased R UE tumor/rubor/dolor) (8) Right shoulder pain Status: Acute Problem Text: Family/px refusing aspiration for confirmation 06/26/19 MRI R shoulder, highly suspicious for septic arthritis: 1. Severe osteoarthritis of the glenohumeral joint. Bone marrow edema signal in the bony glenoid is likely secondary to osteoarthritis. Osteomyelitis is not excluded. 2. Rotator cuff tendinopathy, as described above. 3. Fluid tracking along the posterior deltoid, subscapularis, supraspinatus and infraspinatus muscles is nonspecific. This may be seen in the setting of trauma, as well as infectious myopathy. Clinical correlation is needed. 4. Glenohumeral joint effusion with synovitis. Septic arthritis is not excluded. Consider joint aspiration. 5. Subscapularis bursitis with synovitis, nonspecific. Septic bursitis is not excluded. (9) Seizure-like activity Status: Acute Problem Text: No recurrent rigidity on leve 500 BID 06/26 EEG generalized slowing s EA no further rigidity 06/24 generalized rigidity cw TC sz activity; therefore, + leve 500 BID-favor 2 new emboli (10) Cerebrovascular accident, embolic Status: Acute Problem Text: 06/23: due to strong suspicion for septic emboli (mri findings and positive blood culture for S aureus) and absent confirmation of Afib, and concern expressed by Dr. 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 06/14 changed LMWH to rivarox 06/13 presumptive AF, but none documented since admission on tele; long dw who will attempt to arrange 12/06 coverage for px to dc home 06/13 given embolic CVA; restart tele, + therapeutic LMWH 06/13/19 MRA brain/carotids s significant stenosis 06/13/19 MRI brain: Numerous small foci of restricted diffusion with associated ADC dropout throughout the bilateral cerebral hemispheres, measuring up to 11 x 8 mm in the right occipital lobe. (not appreciated by 06/11 CT head) 06/10 TTE: 1. Normal appearing and well seated aortic valve bioprosthesis. No aortic stenosis or regurgitation. 2. Mild concentric left ventricle hypertrophy. Normal regional left ventricular (LV) wall motion and wall thickening. Normal LV systolic function. Left ventricular ejection fraction (LVEF) 70% by visual estimate. Grade 1 LV diastolic dysfunction. Normal left atrial size and left atrial volume index. 3. Moderate mitral annular calcification. No mitral regurgitation or stenosis. 4. Normal right ventricle size and systolic function. 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 Lamb 06/29 178K 06/16 stable at 127K (15) PVD (peripheral vascular disease) Status: Chronic Problem Text: 06/10/19 BLE art US The there is diffuse atheromatous plaque bilaterally. On the right there is stenosis from the mid to distal SFA and stenosis in the distal PORT CAP[place]. On the left there is stenosis in the distal SFA and stenosis in the proximal [place]. (16) Chronic wound of extremity Status: Chronic Problem Text: 06/22: improving. 06/17/19: Dressing changes per Dr. Sanchez's recommendations per Laura: continued Vashe wound cleanser QD covered then with Santyl nickel thick and a foam dressing. Dressing changes can be on an every other day basis. Tubigrip stockings should be utilized BLE (17) Hx of aortic valve replacement Status: Chronic Problem Text: TTE as per MSSA sepsis (18) Colon cancer Status: Chronic Response to Treatment: Stable Problem Text: sp R colectomy PARESH Plan/VTE VTE Prophylaxis Ordered?: Yes (Xarelto ) VTE Exclusion Pharmacological: Thrombocytopenia Plan Anticipated Discharge: Residential VS, I&O, 24H, Fishbone Vital Signs/I&O Vital Signs Date Time Temp Pulse Resp B/P (MAP) Pulse Ox O2 Delivery O2 Flow Rate FiO2 06/29/19 11:38 71 146/65 06/29/19 10:38 96.1 18 95 2.0 I&O- Last 24 Hours up to 6 AM 06/29/19 05:59 Intake Total 660 ml Output Total 1325 ml Balance -665 ml Laboratory Data 24H LABS Laboratory Tests 2 06/28/19 21:28: Bedside Glucose (Misc Panel) 166H 06/29/19 05:25: Immature Granulocyte % (Auto) 0.4, White Blood Count 4.5, Red Blood Count 3.47L, Hemoglobin 10.4L, Hematocrit 32.1L, Mean Corpuscular Volume 92.5, Mean Corpuscular Hemoglobin 30.0, Mean Corpuscular Hemoglobin Concent 32.4, Red Cell Distribution Width 13.6, Platelet Count 178, Neutrophils (%) (Auto) 64.8, Lymphocytes (%) (Auto) 27.2, Monocytes (%) (Auto) 5.6H, Eosinophils (%) (Auto) 1.6, Basophils (%) (Auto) 0.4, Neutrophils # (Auto) 2.9, Lymphocytes # (Auto) 1.2L, Monocytes # (Auto) 0.3, Eosinophils # (Auto) 0.1, Basophils # (Auto) 0.0, Nucleated Red Blood Cells % (auto) 0.0, Anion Gap 6L, Glomerular Filtration Rate > 60.0, Blood Urea Nitrogen 6L, Creatinine 0.84, Sodium Level 143, Potassium Level 3.8, Chloride Level 110H, Carbon Dioxide Level 27, Calcium Level 8.8, Aspartate Amino Transf (AST/SGOT) 20, Alanine Aminotransferase (ALT/SGPT) 7L, Alkaline Phosphatase 111, Total Bilirubin 0.4, Total Protein 5.1L, Albumin 2.1L, C-Reactive Protein, Quantitative 5.16H, Albumin/Globulin Ratio 0.70L 06/29/19 11:41: Bedside Glucose (Misc Panel) 135H CBC/BMP Laboratory Tests 06/29/19 05:25 Red Blood Count 3.47 L, Mean Corpuscular Volume 92.5, Mean Corpuscular Hemoglobin 30.0, Mean Corpuscular Hemoglobin Concent 32.4, Red Cell Distribution Width 13.6, Neutrophils (%) (Auto) 64.8, Lymphocytes (%) (Auto) 27.2, Monocytes (%) (Auto) 5.6 H, Eosinophils (%) (Auto) 1.6, Basophils (%) (Auto) 0.4, Neutr ophils # (Auto) 2.9, Lymphocytes # (Auto) 1.2 L, Monocytes # (Auto) 0.3, Eosinophils # (Auto) 0.1, Basophils # (Auto) 0.0, Calcium Level 8.8, Aspartate Amino Transf (AST/SGOT) 20, Alanine Aminotransferase (ALT/SGPT) 7 L, Alkaline Phosphatase 111, Total Bilirubin 0.4, Total Protein 5.1 L, Albumin 2.1 L Microbiology Microbiology 06/24/19 Blood Culture - Preliminary, Resulted No Growth after 72 hours. All specime... 06/24/19 Blood Culture - Final, Complete NO GROWTH AFTER 5 DAYS 06/19/19 Blood Culture - Final, Complete NO GROWTH AFTER 5 DAYS 06/19/19 Blood Culture - Final, Complete Staphylococcus Aureus Cristi Carroll M.D. Jun 29, 2019 14:30
[2019-06-29] MEDS ORDERED: ONDANSETRON 4MG/2ML VIAL (J2405) IV PRN (15:00)
[2019-06-29] MEDS: MAALOX 30 ML SUSP *UDC PO PRN (15:32)
[2019-06-29] MEDS: LATANOPROST 0.005% OPHTH SOLN 2.5 ML OU SCH ×2 (21:00→22:54)
[2019-06-29 22:00] VITALS: BP 141/72
[2019-06-30] MEDS: NORCO, ANEXSIA 5/325MG TABLET (HYDROcodone/ACETAMINOPHEN) PO PRN ×2 (00:30→13:13)
[2019-06-30] MEDS: ceFAZolin SOD 2 GM in IV 1 EA IV SCH ×3 (02:31→17:47)
[2019-06-30 05:55] LABS: BASO % 0.7 % (0.0-1.0); EOS # 0.1 10^3/uL (0.0-0.50); EOS % 1.4 % (0.0-3.0); HEMATOCRIT 30.2 % (42.0-52.0); HEMOGLOBIN 9.5 g/dl (13.5-17.5); LYMPH # 1.6 10^3/uL (1.5-4.5); LYMPH % 36.2 % (24.0-44.0); MEAN CORPUSCULAR HEMOGLOBIN 29.2 pg (27.0-33.0); MEAN CORPUSCULAR HGB CONC 31.5 g/dl (32.0-36.5); MEAN CORPUSCULAR VOLUME 92.9 fl (80.0-96.0); MONO # 0.3 10^3/uL (0.0-0.8); MONO % 6.8 % (0.0-5.0); NEUTROPHILS # 2.4 10^3/uL (1.8-7.7); NEUTROPHILS % 54.4 % (36.0-66.0); PLATELET COUNT, AUTOMATED 182 10^3/uL (150-450); RED BLOOD COUNT 3.25 10^6/uL (4.30-6.10); WHITE BLOOD COUNT 4.4 10^3/uL (4.0-10.0)
[2019-06-30 06:00] VITALS: BP 96/62
[2019-06-30 06:18] LABS: ALBUMIN 1.9 GM/DL (3.2-5.2); ALT/SGPT < 6 U/L (12-78); BILIRUBIN,TOTAL 0.2 MG/DL (0.2-1.0); BLOOD UREA NITROGEN 4 MG/DL (7-18); C REACTIVE PROTEIN QUANTITATIV 4.65 MG/DL (0.00-0.30); CALCIUM LEVEL 8.3 MG/DL (8.8-10.2); CARBON DIOXIDE LEVEL 29 MEQ/L (21-32); CHLORIDE LEVEL 111 MEQ/L (98-107); CREATININE FOR GFR 0.91 MG/DL (0.70-1.30); GLOMERULAR FILTRATION RATE > 60.0 (>42); GLUCOSE, FASTING 117 MG/DL (70-100); POTASSIUM SERUM 3.9 MEQ/L (3.5-5.1); SODIUM LEVEL 145 MEQ/L (136-145); TOTAL PROTEIN 4.7 GM/DL (6.4-8.2)
[2019-06-30] MEDS: HumaLOG INSULIN (NovoLOG) PER UNIT SC SCH ×3 (07:30→17:47)
[2019-06-30] MEDS: IPRATROPIUM 0.5MG/ALBUTEROL 2.5MG INH SOL UD 3ML (DUONEB)(J7620) NEB SCH ×3 (08:00→19:48)
[2019-06-30] MEDS: BISOPROLOL FUMARATE 10 MG TAB PO SCH (09:00)
[2019-06-30] MEDS: MAGNESIUM CHLORIDE 64 MG TABCR (SLO MAG) PO SCH (09:00)
[2019-06-30 10:00] VITALS: BP 103/60
[2019-06-30] MEDS: NS 1,000 ML IV SCH (10:35)
[2019-06-30] MEDS: DICLOFENAC EPOLAMINE 1.3 % PATCH TOP SCH ×2 (10:35→21:52)
[2019-06-30] MEDS: FAMOTIDINE 20 MG TAB PO SCH (10:37)
[2019-06-30] MEDS: TAVALISSE PO SCH ×2 (10:37→21:50)
[2019-06-30] MEDS: PANTOPRAZOLE 40MG TAB (PROTONIX) PO SCH ×2 (10:38→21:52)
[2019-06-30] MEDS: POTASSIUM CHLORIDE 10 MEQ SR TABLET PO SCH ×2 (10:38→21:51)
[2019-06-30] MEDS: GABAPENTIN 300 MG CAP PO SCH ×2 (10:38→21:51)
[2019-06-30] MEDS: PRAVASTATIN 20 MG TAB PO SCH (10:38)
[2019-06-30] MEDS: levETIRAcetam 250MG TABLET (KEPPRA) PO SCH ×2 (10:39→21:51)
[2019-06-30] MEDS: LISINOPRIL 20 MG TAB PO SCH (10:39)
[2019-06-30] MEDS: DIVALPROEX 250 MG TAB PO SCH (10:40)
[2019-06-30] MEDS: TAMSULOSIN 0.4 MG CAP PO SCH (10:40)
--- NOTE | 2019-06-30 11:26 | IPNPDOC ---
Subjective Date Seen The patient was seen on 06/30/19. Subjective Chief Complaint/HPI stable Assessment /Plan Problems (1) Dementia Status: Chronic Problem Text: case dw extensively who agrees c POA Plan/VTE VTE Prophylaxis Ordered?: Yes VS, I&O, 24H, Fishbone Vital Signs/I&O Vital Signs Date Time Temp Pulse Resp B/P (MAP) Pulse Ox O2 Delivery O2 Flow Rate FiO2 06/30/19 10:39 141/72 06/30/19 10:00 97.3 74 18 96 06/29/19 10:38 2.0 I&O- Last 24 Hours up to 6 AM 06/30/19 06:00 Intake Total 1550 ml Output Total 1525 ml Balance 25 ml Laboratory Data 24H LABS Laboratory Tests 2 06/29/19 11:41: Bedside Glucose (Misc Panel) 135H 06/29/19 16:28: Bedside Glucose (Misc Panel) 161H 06/29/19 21:03: Bedside Glucose (Misc Panel) 139H 06/30/19 05:15: Immature Granulocyte % (Auto) 0.5, White Blood Count 4.4, Red Blood Count 3.25L, Hemoglobin 9.5L, Hematocrit 30.2L, Mean Corpuscular Volume 92.9, Mean Corpuscular Hemoglobin 29.2, Mean Corpuscular Hemoglobin Concent 31.5L, Red Cell Distribution Width 13.6, Platelet Count 182, Neutrophils (%) (Auto) 54.4, Ly mphocytes (%) (Auto) 36.2, Monocytes (%) (Auto) 6.8H, Eosinophils (%) (Auto) 1.4, Basophils (%) (Auto) 0.7, Neutrophils # (Auto) 2.4, Lymphocytes # (Auto) 1.6, Monocytes # (Auto) 0.3, Eosinophils # (Auto) 0.1, Basophils # (Auto) 0.0, Nucleated Red Blood Cells % (auto) 0.0, Anion Gap 5L, Glomerular Filtration Rate > 60.0, Blood Urea Nitrogen 4L, Creatinine 0.91, Sodium Level 145, Potassium Level 3.9, Chloride Level 111H, Carbon Dioxide Level 29, Calcium Level 8.3L, Aspartate Amino Transf (AST/SGOT) 17, Alanine Aminotransferase (ALT/SGPT) < 6L, Alkaline Phosphatase 101, Total Bilirubin 0.2, Total Protein 4.7L, Albumin 1.9L, C-Reactive Protein, Quantitative 4.65H, Albumin/Globulin Ratio 0.68L CBC/BMP Laboratory Tests 06/30/19 05:15 Red Blood Count 3.25 L, Mean Corpuscular Volume 92.9, Mean Corpuscular Hemoglobin 29.2, Mean Corpuscular Hemoglobin Concent 31.5 L, Red Cell Distribution Width 13.6, Neutrophils (%) (Auto) 54.4, Lymphocytes (%) (Auto) 36.2, Monocytes (%) (Auto) 6.8 H, Eosinophils (%) (Auto) 1.4, Basophils (%) (Auto) 0.7, Neutrophils # (Auto) 2.4, Lymphocytes # (Auto) 1.6, Monocytes # (Auto) 0.3, Eosinophils # (Auto) 0.1, Basophils # (Auto) 0.0, Calcium Level 8.3 L, Aspartate Amino Transf (AST/SGOT) 17, Alanine Aminotransferase (ALT/SGPT) < 6 L, Alkaline Phosphatase 101, Total Bilirubin 0.2, Total Protein 4.7 L, Albumin 1.9 L Microbiology Microbiology 06/24/19 Blood Culture - Final, Complete NO GROWTH AFTER 5 DAYS 06/24/19 Blood Culture - Final, Complete NO GROWTH AFTER 5 DAYS Cristi Carroll M.D. Jun 30, 2019 11:26
--- NOTE | 2019-06-30 11:30 | IPNPDOC ---
Subjective Date Seen The patient was seen on 06/30/19. Subjective Chief Complaint/HPI at baseline MS Constitutional: Denies: Chills Eyes: Denies: Pain ENT: Denies: Head Aches, Ear Pain Skin: Denies: Rash, Lesions Pulmonary: Denies: Dyspnea Cardiovascular: Denies: Chest Pain Gastrointestinal: Denies: Nausea, Vomiting Genitourinary: Denies: Dysuria Objective Physical Examination General Exam: Positive: Alert (communicating, speech clear: pleasantly confused), No Acute Distress Neck Exam: Positive: Supple; Negative: thyromegaly Chest Exam: Positive: Clear to auscultation, Normal air movement Heart Exam: Positive: Rate Normal, Regular Rhythm, Normal S1, Normal S2; Negative: Murmurs, Rubs Abdomen Exam: Positive: Normal bowel sounds, Soft; Negative: Tenderness, Hepatospenomegaly Extremity Exam: Positive: Normal pulses, Swelling (RUE); Negative: Clubbing, Cyanosis, Edema Skin Exam: Positive: Other skin issue (wounds are improving.) Neuro Exam: Positive: Other (alert to self and family. ) Psych Exam: Negative: Mental status NL (confused about location and recent events. recognizes me and his who is present in his room at this time.), Mood NL (tells me that he wants to , that he has had a full life and doesn't want to spend the rest of his life taking pills, he wants to go home so no one is telling him what to do and take.) Assessment /Plan Problems (1) Dyspepsia Status: Acute Problem Text: 06/29 + panto 40 BID, + Mylanta 30 q6H prn, ondan 4 qHprn (2) MSSA (methicillin susceptible Staphylococcus aureus) Status: Acute Problem Text: cefazolin 2 q8H (given ho AVR) (prior 4D vanco)-emperic rx for MSSA IE/ R septic shoulder 06/29 L PICC placed per 's request-obvious HIGH risk of patient pulling out and/or recurrent DVT 06/30 AF, WBC 4.4, CRP 4.4, (5.2) (06/24/19 14) 8 sp R PICC, 06/25/19 removed as per cephalic v thrombus tc LEVON if condition stabilizes 06/24 BCX2 NG 06/18 BCX 2/3 MSSA-06/21 + ceftriaxone 2 gm QD 06/24/19 TTE: 1. Borderline concentric left ventricle hypertrophy. Normal regional LV wall motion and wall thickening. Normal LV systolic function. LVEF 70% by visual estimate. Grade 1 LV diastolic dysfunction (impaired relaxation filling pattern). 2. Cardiac valves were only moderately well visualized. This was a technically difficult study for assessment of vegetations. The image quality of the study was not adequate to rule out very small vegetations. 3. Moderate mitral annular calcification. Very mild mitral regurgitation. No mitral stenosis. 4. Status post aortic valve replacement with bioprosthesis which appears to be functionally normal. 5. Small pericardial effusion measuring 1.0 cm of the posterior wall of the left (3) Urinary retention Status: Acute Problem Text: tc TOV remains on tamsul 0.4 QHS 06/18 FC placed 2 retention 06/18 UCX NG (4) Septic embolism Status: Acute Problem Text: suspicious of IE c septic emboli 06/27 similar MS change, but deferred repeat MRI 06/23 MS change c new B septic emboli by MRI DOAC held given no evidence of benefit prevent emboli in IE AND increased risk of hemorrhagic conversion (5) Paroxysmal atrial fibrillation Status: Chronic Response to Treatment: Stable Problem Text: per Dr. Small office notes-only known occurence was [id number] on AC for it. 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, however (6) Dementia Status: Chronic Problem Text: Stable last dose: halo 2 IM 06/21, risper 2 po 06/22 06/24 EEG mild diffuse slowing, no EA chronic sundowning c IED (favor FTD) Contingency: parox to reduce disinhibition; restart ris/halo prn 06/14 given sedation in late PM (although had been very agitated in AM), Neuro checked CT head NAD and changed risper to aripip 2 BID (given a partial DA agonist, would given low impulse control), but worst-ever agitation 06/15 AM requiring IM halo 1 x 1; therefore, changed back to risper and dced dulox 20 QHS (had been started for chronic pain) (7) Thrombosis of right cephalic vein Status: Acute Problem Text: no AC as per septic emboli 06/25/19 R PICC dc 06/24/19 RUE US: No sonographic evidence of deep vein thrombosis. 2. Mildly heterogeneous, and nonocclusive thrombus in the distal cephalic vein (done 2 increased R UE tumor/rubor/dolor) (8) Right shoulder pain Status: Acute Problem Text: Family/px refusing aspiration for confirmation 06/26/19 MRI R shoulder, highly suspicious for septic arthritis: 1. Severe osteoarthritis of the glenohumeral joint. Bone marrow edema signal in the bony glenoid is likely secondary to osteoarthritis. Osteomyelitis is not excluded. 2. Rotator cuff tendinopathy, as described above. 3. Fluid tracking along the posterior deltoid, subscapularis, supraspinatus and infraspinatus muscles is nonspecific. This may be seen in the setting of trauma, as well as infectious myopathy. Clinical correlation is needed. 4. Glenohumeral joint effusion with synovitis. Septic arthritis is not excluded. Consider joint aspiration. 5. Subscapularis bursitis with synovitis, nonspecific. Septic bursitis is not excluded. (9) Seizure-like activity Status: Acute Problem Text: No recurrent rigidity on leve 500 BID and margareth 300 BID 06/30 held DVP 250 QHS 06/26 EEG generalized slowing s EA no further rigidity 06/24 generalized rigidity cw TC sz activity; therefore, + leve 500 BID-favor 2 new emboli (10) Cerebrovascular accident, embolic Status: Acute Problem Text: 06/23: due to strong suspicion for septic emboli (mri findings and positive blood culture for S aureus) and absent confirmation of Afib, and concern expressed by Dr. 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 06/14 changed LMWH to rivarox 06/13 presumptive AF, but none documented since admission on tele; long dw who will attempt to arrange 12/06 coverage for px to dc home 06/13 given embolic CVA; restart tele, + therapeutic LMWH 06/13/19 MRA brain/carotids s significant stenosis 06/13/19 MRI brain: Numerous small foci of restricted diffusion with associated ADC dropout throughout the bilateral cerebral hemispheres, measuring up to 11 x 8 mm in the right occipital lobe. (not appreciated by 06/11 CT head) 06/10 TTE: 1. Normal appearing and well seated aortic valve bioprosthesis. No aortic stenosis or regurgitation. 2. Mild concentric left ventricle hypertrophy. Normal regional left ventricular (LV) wall motion and wall thickening. Normal LV systolic function. Left ventricular ejection fraction (LVEF) 70% by visual estimate. Grade 1 LV diastolic dysfunction. Normal left atrial size and left atrial volume index. 3. Moderate mitral annular calcification. No mitral regurgitation or stenosis. 4. Normal right ventricle size and systolic function. 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 Lamb 06/29 178K 06/16 stable at 127K (15) PVD (peripheral vascular disease) Status: Chronic Problem Text: 06/10/19 BLE art US The there is diffuse atheromatous plaque bilaterally. On the right there is stenosis from the mid to distal SFA and stenosis in the distal [employer]. On the left there is stenosis in the distal SFA and stenosis in the proximal [employer]ER. (16) Chronic wound of extremity Status: Chronic Problem Text: 06/22: improving. 06/17/19: Dressing changes per Dr. Sanchez's recommendations per Laura: continued Vashe wound cleanser QD covered then with Santyl nickel thick and a foam dressing. Dressing changes can be on an every other day basis. Tubigrip stockings should be utilized BLE (17) Hx of aortic valve replacement Status: Chronic Problem Text: TTE as per MSSA sepsis (18) Colon cancer Status: Chronic Response to Treatment: Stable Problem Text: sp R colectomy PARESH Plan/VTE VTE Prophylaxis Ordered?: Yes (Xarelto ) VTE Exclusion Pharmacological: Thrombocytopenia Plan Anticipated Discharge: Long-Term VS, I&O, 24H, Fishbone Vital Signs/I&O Vital Signs Date Time Temp Pulse Resp B/P (MAP) Pulse Ox O2 Delivery O2 Flow Rate FiO2 8/11/19 10:39 141/72 06/30/19 10:00 97.3 74 18 96 06/29/19 10:38 2.0 I&O- Last 24 Hours up to 6 AM 06/30/19 06:00 Intake Total 1550 ml Output Total 1525 ml Balance 25 ml Laboratory Data 24H LABS Laboratory Tests 2 06/29/19 11:41: Bedside Glucose (Misc Panel) 135H 06/29/19 16:28: Bedside Glucose (Misc Panel) 161H 06/29/19 21:03: Bedside Glucose (Misc Panel) 139H 06/30/19 05:15: Immature Granulocyte % (Auto) 0.5, White Blood Count 4.4, Red Blood Count 3.25L, Hemoglobin 9.5L, Hematocrit 30.2L, Mean Corpuscular Volume 92.9, Mean Corpuscular Hemoglobin 29.2, Mean Corpuscular Hemoglobin Concent 31.5L, Red Cell Distribution Width 13.6, Platelet Count 182, Neutrophils (%) (Auto) 54.4, Lymphocytes (%) (Auto) 36.2, Monocytes (%) (Auto) 6.8H, Eosinophils (%) (Auto) 1.4, Basophils (%) (Auto) 0.7, Neutrophils # (Auto) 2.4, Lymphocytes # (Auto) 1.6, Monocytes # (Auto) 0.3, Eosinophils # (Auto) 0.1, Basophils # (Auto) 0.0, Nucleated Red Blood Cells % (auto) 0.0, Anion Gap 5L, Glomerular Filtration Rate > 60.0, Blood Urea Nitrogen 4L, Creatinine 0.91, Sodium Level 145, Potassium Level 3.9, Chloride Level 111H, Carbon Dioxide Level 29, Calcium Level 8.3L, Aspartate Amino Transf (AST/SGOT) 17, Alanine Aminotransferase (ALT/SGPT) < 6L, Alkaline Phosphatase 101, Total Bilirubin 0.2, Total Protein 4.7L, Albumin 1.9L, C-Reactive Protein, Quantitative 4.65H, Albumin/Globulin Ratio 0.68L CBC/BMP Laboratory Tests 06/30/19 05:15 Red Blood Count 3.25 L, Mean Corpuscular Volume 92.9, Mean Corpuscular Hemoglobin 29.2, Mean Corpuscular Hemoglobin Concent 31.5 L, Red Cell Distribution Width 13.6, Neutrophils (%) (Auto) 54.4, Lymphocytes (%) (Auto) 36.2, Monocytes (%) (Auto) 6.8 H, Eosinophils (%) (Auto) 1.4, Basophils (%) (Auto) 0.7, Neutrophils # (Auto) 2.4, Lymphocytes # (Auto) 1.6, Monocytes # (Auto) 0.3, Eosinophils # (Auto) 0.1, Basophils # (Auto) 0.0, Calcium Level 8.3 L, Aspartate Amino Transf (AST/SGOT) 17, Alanine Aminotransferase (ALT/SGPT) < 6 L, Alkaline Phosphatase 101, Total Bilirubin 0.2, Total Protein 4.7 L, Albumin 1.9 L Microbiology Microbiology 06/24/19 Blood Culture - Final, Complete NO GROWTH AFTER 5 DAYS 06/24/19 Blood Culture - Final, Complete NO GROWTH AFTER 5 DAYS Cristi Carroll M.D. Jun 30, 2019 11:30
[2019-06-30 14:00] VITALS: BP 103/60
[2019-06-30] MEDS: HALOPERIDOL 5 MG/ML VIAL (J1630) IM PRN (14:43)
[2019-06-30] MEDS: ACETAMINOPHEN TAB 650MG DOSE (2X325MG) PO PRN (17:48)
[2019-06-30 18:00] VITALS: BP 130/71
[2019-06-30] MEDS: LATANOPROST 0.005% OPHTH SOLN 2.5 ML OU SCH (21:52)
[2019-06-30 22:00] VITALS: BP 139/71
[2019-07-01] MEDS: ceFAZolin SOD 2 GM in IV 1 EA IV SCH ×3 (01:47→17:40)
[2019-07-01] MEDS: NS 1,000 ML IV SCH ×2 (01:48→07:47)
[2019-07-01 02:00] VITALS: BP 133/57
[2019-07-01 06:00] VITALS: BP 176/82
[2019-07-01 07:34] LABS: BASO % 0.4 % (0.0-1.0); EOS # 0.1 10^3/uL (0.0-0.50); EOS % 1.4 % (0.0-3.0); HEMATOCRIT 31.2 % (42.0-52.0); HEMOGLOBIN 10.1 g/dl (13.5-17.5); LYMPH # 1.5 10^3/uL (1.5-4.5); LYMPH % 26.7 % (24.0-44.0); MEAN CORPUSCULAR HEMOGLOBIN 30.2 pg (27.0-33.0); MEAN CORPUSCULAR HGB CONC 32.4 g/dl (32.0-36.5); MEAN CORPUSCULAR VOLUME 93.4 fl (80.0-96.0); MONO # 0.4 10^3/uL (0.0-0.8); MONO % 6.6 % (0.0-5.0); NEUTROPHILS # 3.6 10^3/uL (1.8-7.7); NEUTROPHILS % 64.5 % (36.0-66.0); PLATELET COUNT, AUTOMATED 197 10^3/uL (150-450); RED BLOOD COUNT 3.34 10^6/uL (4.30-6.10); WHITE BLOOD COUNT 5.6 10^3/uL (4.0-10.0)
[2019-07-01 08:12] LABS: ALBUMIN 2.1 GM/DL (3.2-5.2); ALT/SGPT < 6 U/L (12-78); BILIRUBIN,TOTAL 0.2 MG/DL (0.2-1.0); BLOOD UREA NITROGEN 6 MG/DL (7-18); C REACTIVE PROTEIN QUANTITATIV 4.34 MG/DL (0.00-0.30); CALCIUM LEVEL 8.6 MG/DL (8.8-10.2); CARBON DIOXIDE LEVEL 26 MEQ/L (21-32); CHLORIDE LEVEL 112 MEQ/L (98-107); CREATININE FOR GFR 1.01 MG/DL (0.70-1.30); GLOMERULAR FILTRATION RATE > 60.0 (>42); GLUCOSE, FASTING 145 MG/DL (70-100); POTASSIUM SERUM 3.8 MEQ/L (3.5-5.1); SODIUM LEVEL 143 MEQ/L (136-145); TOTAL PROTEIN 5.6 GM/DL (6.4-8.2)
[2019-07-01] MEDS: DICLOFENAC EPOLAMINE 1.3 % PATCH TOP SCH ×2 (08:26→21:23)
[2019-07-01] MEDS: HumaLOG INSULIN (NovoLOG) PER UNIT SC SCH ×4 (08:26→21:00)
[2019-07-01] MEDS: POTASSIUM CHLORIDE 10 MEQ SR TABLET PO SCH ×2 (08:27→21:22)
[2019-07-01] MEDS: TAMSULOSIN 0.4 MG CAP PO SCH (08:27)
[2019-07-01] MEDS: FAMOTIDINE 20 MG TAB PO SCH (08:27)
[2019-07-01] MEDS: levETIRAcetam 250MG TABLET (KEPPRA) PO SCH ×2 (08:27→21:22)
[2019-07-01] MEDS: PRAVASTATIN 20 MG TAB PO SCH (08:27)
[2019-07-01] MEDS: PANTOPRAZOLE 40MG TAB (PROTONIX) PO SCH ×2 (08:27→21:22)
[2019-07-01] MEDS: TAVALISSE PO SCH ×2 (08:28→21:22)
[2019-07-01] MEDS: GABAPENTIN 300 MG CAP PO SCH ×2 (08:28→21:22)
[2019-07-01] MEDS: MAGNESIUM CHLORIDE 64 MG TABCR (SLO MAG) PO SCH (08:28)
[2019-07-01] MEDS: LISINOPRIL 20 MG TAB PO SCH (08:29)
[2019-07-01] MEDS: BISOPROLOL FUMARATE 10 MG TAB PO SCH (09:35)
[2019-07-01] MEDS: NORCO, ANEXSIA 5/325MG TABLET (HYDROcodone/ACETAMINOPHEN) PO PRN ×2 (09:39→21:24)
[2019-07-01 10:00] VITALS: BP 138/71
[2019-07-01 14:00] VITALS: BP 136/66
[2019-07-01] MEDS: IPRATROPIUM 0.5MG/ALBUTEROL 2.5MG INH SOL UD 3ML (DUONEB)(J7620) NEB SCH (20:00)
[2019-07-01] MEDS: LATANOPROST 0.005% OPHTH SOLN 2.5 ML OU SCH (21:23)
[2019-07-01 22:00] VITALS: BP 117/73
--- NOTE | 2019-07-01 22:35 | IPN ---
DATE: 07/01/2019 SUBJECTIVE: Patient is alert and conversant. Denies discomfort at this time. His only complaint is he does not like needle sticks. REVIEW OF SYSTEMS: Denies cough, dyspnea, chest pain, abdominal pain, nausea, vomiting, new skin problems, fevers or chills. EXAMINATION: Vital signs: Blood pressure 138/71, pulse 71, respiratory rate 15 and temperature 98.2. Maximum temperature (T max) over the past 24 hours was 99.2, documented at 2200 hours yesterday. He has had no fever above 100 degrees since June 18, 2019. Blood cultures remain negative; his last positive blood culture was at 1505 hours on June 19, 2019. Subsequent cultures on June 24, 2019 were negative. Three blood cultures: June 19, 2019, June 24, 2019 and June 24, 2019 were negative. Laboratory data today also showed BUN 6, creatinine 1.01, sodium 143, potassium 3.8, C-reactive protein continues to slowly drop, 4.34 today. It was 5.1 on Monday, 8.07 on June 27, 2019. Albumin is improving at 2.1 today. Platelet count is satisfactory at 197,000. Lungs: Clear to auscultation. Heart: Regular rhythm without murmurs. Abdomen: Obese, nontender. No mass, guarding or rebound. Right arm formally quite swollen from superficial thrombophlebitis has improved. ASSESSMENT: Methicillin-sensitive Staphylococcus Aureus. Today is day #9 of cefazolin, although he started vancomycin 4 days before that along with meropenem. Urinary retention. On tamsulosin and Castro catheter trial of voiding was discussed with the patient, and he wants no part of it at this point. Stroke with likely septic embolism. On antibiotics. Mental status has gradually improved, although he still is intermittently combative. Dementia, chronic transient and acute worsening associated with a stroke. He does seem to be improving at this point. Thrombosis right cephalic vein. No deep vein thrombosis documented. Right shoulder pain is chronic. MRI was inconclusive with respect to infection, and family wants no part of joint aspiration for diagnostic confirmation. He is on antibiotic at this point. There is no heat and overall pain with shoulder movement seems to be improving. Chronic hypertension. Diabetes mellitus, which she is now being treated with insulin. Thrombocytopenia, which is well controlled with current medication of Tavalisse, and his chronic wounds are healing nicely. PLAN: The patient will continue IV antibiotics twice a day with cefazolin to complete a 3-week course of total antibiotic suppression. Will have to ask Dr. Jarrett precisely when she believes he can safely stop because he was on an effective regimen. Will need to ask Dr. Jarrett precisely the stop date considering she has recommended 6 weeks of cefazolin, but he was on IV antibiotics a few days before cefazolin was started, that should suppress Staphylococcus adequately. At this point, there is no realistic way that we can transfer him to a lower level of care because of the twice daily IV antibiotic, the absence of a peripherally inserted central catheter (PICC) that is stable and his ongoing disruptive combativeness requiring periodic use of medications to prevent injury to the patient and staff.
[2019-07-02] MEDS: ceFAZolin SOD 2 GM in IV 1 EA IV SCH ×3 (01:07→16:51)
[2019-07-02] MEDS: NS 1,000 ML IV SCH (03:25)
[2019-07-02 06:00] VITALS: BP 173/73
[2019-07-02 06:14] LABS: BASO % 0.6 % (0.0-1.0); EOS # 0.1 10^3/uL (0.0-0.50); EOS % 1.4 % (0.0-3.0); HEMATOCRIT 31.8 % (42.0-52.0); HEMOGLOBIN 10.2 g/dl (13.5-17.5); LYMPH # 1.6 10^3/uL (1.5-4.5); LYMPH % 31.6 % (24.0-44.0); MEAN CORPUSCULAR HEMOGLOBIN 29.7 pg (27.0-33.0); MEAN CORPUSCULAR HGB CONC 32.1 g/dl (32.0-36.5); MEAN CORPUSCULAR VOLUME 92.7 fl (80.0-96.0); MONO # 0.4 10^3/uL (0.0-0.8); MONO % 7.8 % (0.0-5.0); NEUTROPHILS # 2.9 10^3/uL (1.8-7.7); NEUTROPHILS % 58.2 % (36.0-66.0); PLATELET COUNT, AUTOMATED 190 10^3/uL (150-450); RED BLOOD COUNT 3.43 10^6/uL (4.30-6.10)
[2019-07-02 06:40] LABS: ALBUMIN 2.1 GM/DL (3.2-5.2); ALT/SGPT < 6 U/L (12-78); BILIRUBIN,TOTAL 0.2 MG/DL (0.2-1.0); BLOOD UREA NITROGEN 5 MG/DL (7-18); C REACTIVE PROTEIN QUANTITATIV 3.75 MG/DL (0.00-0.30); CALCIUM LEVEL 8.6 MG/DL (8.8-10.2); CARBON DIOXIDE LEVEL 26 MEQ/L (21-32); CHLORIDE LEVEL 111 MEQ/L (98-107); CREATININE FOR GFR 0.96 MG/DL (0.70-1.30); GLOMERULAR FILTRATION RATE > 60.0 (>42); GLUCOSE, FASTING 126 MG/DL (70-100); POTASSIUM SERUM 3.9 MEQ/L (3.5-5.1); SODIUM LEVEL 145 MEQ/L (136-145); TOTAL PROTEIN 5.8 GM/DL (6.4-8.2)
[2019-07-02] MEDS: IPRATROPIUM 0.5MG/ALBUTEROL 2.5MG INH SOL UD 3ML (DUONEB)(J7620) NEB SCH ×3 (08:00→20:00)
[2019-07-02] MEDS: POTASSIUM CHLORIDE 10 MEQ SR TABLET PO SCH ×2 (08:14→20:41)
[2019-07-02] MEDS: MAGNESIUM CHLORIDE 64 MG TABCR (SLO MAG) PO SCH (08:14)
[2019-07-02] MEDS: BISOPROLOL FUMARATE 10 MG TAB PO SCH (08:14)
[2019-07-02] MEDS: levETIRAcetam 250MG TABLET (KEPPRA) PO SCH ×2 (08:15→20:40)
[2019-07-02] MEDS: LISINOPRIL 20 MG TAB PO SCH (08:15)
[2019-07-02] MEDS: FAMOTIDINE 20 MG TAB PO SCH (08:15)
[2019-07-02] MEDS: NORCO, ANEXSIA 5/325MG TABLET (HYDROcodone/ACETAMINOPHEN) PO PRN ×2 (08:15→20:43)
[2019-07-02] MEDS: GABAPENTIN 300 MG CAP PO SCH ×2 (08:16→20:41)
[2019-07-02] MEDS: TAMSULOSIN 0.4 MG CAP PO SCH (08:16)
[2019-07-02] MEDS: PRAVASTATIN 20 MG TAB PO SCH (08:16)
[2019-07-02] MEDS: DICLOFENAC EPOLAMINE 1.3 % PATCH TOP SCH ×2 (08:16→20:42)
[2019-07-02] MEDS: PANTOPRAZOLE 40MG TAB (PROTONIX) PO SCH ×2 (08:16→20:41)
[2019-07-02] MEDS: HumaLOG INSULIN (NovoLOG) PER UNIT SC SCH ×4 (08:17→20:41)
[2019-07-02] MEDS: TAVALISSE PO SCH ×2 (09:00→20:41)
--- NOTE | 2019-07-02 10:21 | IPNPDOC ---
Subjective Date Seen The patient was seen on 07/02/19. Subjective Chief Complaint/HPI Pt this morning states that his catheter is bothersome. He is otherwise doing fine. His is at bedside. She is upset that she had to stay last night with him because he was without a sitter and she has refused to consent to having the camera in the room turned out. She states that if it is turned out without her consent she will file a lawsuit against the hospital. General: Denies: Fatigue Constitutional: Denies: Chills, Fever Pulmonary: Denies: Dyspnea, Cough Cardiovascular: Denies: Chest Pain, Palpitations Gastrointestinal: Denies: Nausea, Vomiting, Diarrhea Neurological: Denies: Weakness Psych: Reports: Mood Normal Objective Physical Examination General Exam: Positive: Alert, No Acute Distress ENT Exam: Positive: Mucous membr. moist/pink Neck Exam: Negative: Supple, JVD Chest Exam: Positive: Clear to auscultation; Negative: Normal air movement Heart Exam: Positive: Rate Normal, Normal S1, Normal S2 Abdomen Exam: Positive: Soft; Negative: Normal bowel sounds, Tenderness Male Exam: Negative: Lesions, Edema, Erythema Extremity Exam: Positive: Edema Neuro Exam: Negative: Normal Speech Assessment /Plan Problems (1) MSSA (methicillin susceptible Staphylococcus aureus) Status: Acute Problem Text: D1 cefazolin 2 q8H (given ho AVR) (prior 4D vanco)-emperic rx for MSSA IE/ R septic shoulder 06/29 L PICC placed per 's request-obvious HIGH risk of patient pulling out and/or recurrent DVT 06/30 AF, WBC 4.4, CRP 4.4, (5.2) (06/24/19 14) 06/21 sp R PICC, 06/25/19 removed as per cephalic v thrombus tc LEVON if condition stabilizes 06/24 BCX2 NG 06/18 BCX / MSSA-06/21 + ceftriaxone 2 gm QD 06/24/19 TTE: 1. Borderline concentric left ventricle hypertrophy. Normal regional LV wall motion and wall thickening. Normal LV systolic function. LVEF 70% by visual estimate. Grade 1 LV diastolic dysfunction (impaired relaxation filling pattern). 2. Cardiac valves were only moderately well visualized. This was a technically difficult study for assessment of vegetations. The image quality of the study was not adequate to rule out very small vegetations. 3. Moderate mitral annular calcification. Very mild mitral regurgitation. No mitral stenosis. 4. Status post aortic valve replacement with bioprosthesis which appears to be functionally normal. 5. Small pericardial effusion measuring 1.0 cm of the posterior wall of the left (2) Urinary retention Status: Acute Problem Text: 07/02 Pt this morning c/o discomfort assoc with cath, will attempt to remove and see how he does. tc TOV remains on tamsul 0.4 QHS 06/18 FC placed 2 retention 06/18 UCX NG (3) Right shoulder pain Status: Acute Problem Text: Family/px refusing aspiration for confirmation 06/26/19 MRI R shoulder, highly suspicious for septic arthritis: 1. Severe osteoarthritis of the glenohumeral joint. Bone marrow edema signal in the bony glenoid is likely secondary to osteoarthritis. Osteomyelitis is not excluded. 2. Rotator cuff tendinopathy, as described above. 3. Fluid tracking along the posterior deltoid, subscapularis, supraspinatus and infraspinatus muscles is nonspecific. This may be seen in the setting of trauma, as well as infectious myopathy. Clinical correlation is needed. 4. Glenohumeral joint effusion with synovitis. Septic arthritis is not excluded. Consider joint aspiration. 5. Subscapularis bursitis with synovitis, nonspecific. Septic bursitis is not excluded. (4) Dementia Status: Chronic Problem Text: case dw extensively who agrees c POA (5) Dyspepsia Status: Acute Problem Text: 07/02 symptoms improved. 06/29 + panto 40 BID, + Mylanta 30 q6H prn, ondan 4 qHprn (6) Thrombosis of right cephalic vein Status: Acute Problem Text: no AC as per septic emboli 06/25/19 R PICC dc 06/24/19 RUE US: No sonographic evidence of deep vein thrombosis. 2. Mildly heterogeneous, and nonocclusive thrombus in the distal cephalic vein (done 2 increased R UE tumor/rubor/dolor) (7) Septic embolism Status: Acute Problem Text: suspicious of IE c septic emboli 06/27 similar MS change, but deferred repeat MRI 06/23 MS change c new B septic emboli by MRI DOAC held given no evidence of benefit prevent emboli in IE AND increased risk of hemorrhagic conversion (8) Paroxysmal atrial fibrillation Status: Chronic Response to Treatment: Stable Problem Text: per Dr. Small office notes-only known occurence was [id number] on AC for it. 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 06/14 changed LMWH to rivarox 06/13 presumptive AF, but none documented since admission on tele; long dw who will attempt to arrange 12/06 coverage for px to dc home 06/13 given embolic CVA; restart tele, + therapeutic LMWH 06/13/19 MRA brain/carotids s significant stenosis 06/13/19 MRI brain: Numerous small foci of restricted diffusion with associated ADC dropout throughout the bilateral cerebral hemispheres, measuring up to 11 x 8 mm in the right occipital lobe. (not appreciated by 06/11 CT head) 06/10 TTE: 1. Normal appearing and well seated aortic valve bioprosthesis. No aortic stenosis or regurgitation. 2. Mild concentric left ventricle hypertrophy. Normal regional left ventricular (LV) wall motion and wall thickening. Normal LV systolic function. Left ventricular ejection fraction (LVEF) 70% by visual estimate. Grade 1 LV diastolic dysfunction. Normal left atrial size and left atrial volume index. 3. Moderate mitral annular calcification. No mitral regurgitation or stenosis. 4. Normal right ventricle size and systolic function. 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 Lamb 06/29 178K 06/16 stable at 127K (14) Hx of aortic valve replacement Status: Chronic Problem Text: TTE as per [facility] sepsis Plan/VTE VTE Prophylaxis Ordered?: Yes VS, I&O, 24H, Fishbone Vital Signs/I&O Vital Signs Date Time Temp Pulse Resp B/P (MAP) Pulse Ox O2 Delivery O2 Flow Rate FiO2 07/02/19 08:45 18 07/02/19 08:15 160/75 07/02/19 08:14 83 07/02/19 06:00 98.2 96 07/01/19 10:09 2.0 I&O- Last 24 Hours up to 6 AM 07/02/19 06:00 Intake Total 1370 ml Output Total 1550 ml Balance -180 ml Laboratory Data 24H LABS Laboratory Tests 2 07/01/19 11:28: Bedside Glucose (Misc Panel) 157H 07/01/19 16:24: Bedside Glucose (Misc Panel) 220H 07/02/19 05:28: Immature Granulocyte % (Auto) 0.4, White Blood Count 5.0, Red Blood Count 3.43L, Hemoglobin 10.2L, Hematocrit 31.8L, Mean Corpuscular Volume 92.7, Mean Corpuscular Hemoglobin 29.7, Mean Corpuscular Hemoglobin Concent 32.1, Red Cell Distribution Width 13.8, Platelet Count 190, Neutrophils (%) (Auto) 58.2, Lymphocytes (%) (Auto) 31.6, Monocytes (%) (Auto) 7.8H, Eosinophils (%) (Auto) 1.4, Basophils (%) (Auto) 0.6, Neutrophils # (Auto) 2.9, Lymphocytes # (Auto) 1.6, Monocytes # (Auto) 0.4, Eosinophils # (Auto) 0.1, Basophils # (Auto) 0.0, Nucleated Red Blood Cells % (auto) 0.0, Anion Gap 8, Glomerular Filtration Rate > 60.0, Blood Urea Nitrogen 5L, Creatinine 0.96, Sodium Level 145, Potassium Level 3.9, Chloride Level 111H, Carbon Dioxide Level 26, Calcium Level 8.6L, Aspartate Amino Transf (AST/SGOT) 16, Alanine Aminotransferase (ALT/SGPT) < 6L, Alkaline Phosphatase 111, Total Bilirubin 0.2, Total Protein 5.8L, Albumin 2.1L, C-Reactive Protein, Quantitative 3.75H, Albumin/Globulin Ratio 0.57L CBC/BMP Laboratory Tests 07/02/19 05:28 Red Blood Count 3.43 L, Mean Corpuscular Volume 92.7, Mean Corpuscular Hemoglobin 29.7, Mean Corpuscular Hemoglobin Concent 32.1, Red Cell Distribution Width 13.8, Neutrophils (%) (Auto) 58.2, Lymphocytes (%) (Auto) 31.6, Monocytes (%) (Auto) 7.8 H, Eosinophils (%) (Auto) 1.4, Basophils (%) (Auto) 0.6, Neutrophils # (Auto) 2.9, Lymphocytes # (Auto) 1.6, Monocytes # (Auto) 0.4, Eosinophils # (Auto) 0.1, Basophils # (Auto) 0.0, Calcium Level 8.6 L, Aspartate Amino Transf (AST/SGOT) 16, Alanine Aminotransferase (ALT/SGPT) < 6 L, Alkaline Phosphatase 111, Total Bilirubin 0.2, Total Protein 5.8 L, Albumin 2.1 L Microbiology Microbiology 06/24/19 Blood Culture - Final, Complete NO GROWTH AFTER 5 DAYS 06/24/19 Blood Culture - Final, Complete NO GROWTH AFTER 5 DAYS FRANCIS RAMACHANDRAN PA-C Jul 02, 2019 10:21
[2019-07-02 14:00] VITALS: BP 131/59
--- NOTE | 2019-07-02 19:07 | IPN ---
DATE: 07/02/2019 Mr. Saamno continues to have episodes of confusion and agitation. Initially, he was happy to see me but when I woke him up to eat his dinner, he swore at me. He still has pain in his right shoulder. Otherwise, he does not complain of much. He has no nausea, vomiting, or diarrhea. He complains of fatigue. PHYSICAL EXAMINATION: HEART: Normal S1, S2. No murmurs appreciated. LUNGS: Diminished breath sounds at the bases but clear. ABDOMEN: Morbidly obese, soft, nontender. EXTREMITIES: +1 pitting edema. SKIN: Multiple ecchymosis and skin tears. MUSCULOSKELETAL: Right shoulder limited range of motion with pain at 20 degrees. IMPRESSION: 1. Methicillin-sensitive Staphylococcus aureus (MSSA) bacteremia with probable septic arthritis of the right shoulder. The patient is on IV cefazolin day number 10. Transthoracic echocardiogram showed no vegetation but the patient is status post aortic valve replacement with bioprosthesis. The patient will receive six weeks of therapy. 2. Right shoulder pain with effusion at the glenohumeral joint. The patient has refused surgical intervention. 3. Confusion. A combination of dementia and metabolic encephalopathy. LABORATORY DATA: White count 5, hemoglobin 10.2, hematocrit 31.8, platelets 190, 58% neutrophils, 32% lymphocyte, 8% monocytes. Sodium 145, potassium 3.9, chloride 111, bicarbonate 26, BUN 5, creatinine 0.96, glucose 126, calcium 8.6, AST 16, ALT 6, alkaline phosphatase 111, CRP 3.75 down from 13.7. PLAN: Continue IV cefazolin, total of six weeks from negative culture. End of therapy would be 08/01/2019.
[2019-07-02] MEDS: LATANOPROST 0.005% OPHTH SOLN 2.5 ML OU SCH (20:41)
[2019-07-02 22:00] VITALS: BP 128/97
[2019-07-03] MEDS: ceFAZolin SOD 2 GM in IV 1 EA IV SCH ×3 (01:04→17:44)
[2019-07-03] MEDS: NS 1,000 ML IV SCH (01:05)
[2019-07-03 06:00] VITALS: BP 151/79
[2019-07-03] MEDS: IPRATROPIUM 0.5MG/ALBUTEROL 2.5MG INH SOL UD 3ML (DUONEB)(J7620) NEB SCH ×3 (08:00→20:00)
[2019-07-03] MEDS: HumaLOG INSULIN (NovoLOG) PER UNIT SC SCH ×4 (08:12→21:00)
[2019-07-03] MEDS: levETIRAcetam 250MG TABLET (KEPPRA) PO SCH ×2 (08:12→21:50)
[2019-07-03] MEDS: NORCO, ANEXSIA 5/325MG TABLET (HYDROcodone/ACETAMINOPHEN) PO PRN ×2 (08:12→17:44)
[2019-07-03] MEDS: FAMOTIDINE 20 MG TAB PO SCH (08:13)
[2019-07-03] MEDS: BISOPROLOL FUMARATE 10 MG TAB PO SCH (08:13)
[2019-07-03] MEDS: TAMSULOSIN 0.4 MG CAP PO SCH (08:14)
[2019-07-03] MEDS: PRAVASTATIN 20 MG TAB PO SCH (08:14)
[2019-07-03] MEDS: DICLOFENAC EPOLAMINE 1.3 % PATCH TOP SCH ×2 (08:14→21:51)
[2019-07-03] MEDS: GABAPENTIN 300 MG CAP PO SCH ×2 (08:14→21:50)
[2019-07-03] MEDS: POTASSIUM CHLORIDE 10 MEQ SR TABLET PO SCH ×2 (08:14→21:50)
[2019-07-03] MEDS: MAGNESIUM CHLORIDE 64 MG TABCR (SLO MAG) PO SCH (08:14)
[2019-07-03] MEDS: TAVALISSE PO SCH ×2 (08:14→21:52)
[2019-07-03] MEDS: LISINOPRIL 20 MG TAB PO SCH (08:14)
[2019-07-03] MEDS: PANTOPRAZOLE 40MG TAB (PROTONIX) PO SCH ×2 (08:14→21:50)
[2019-07-03] MEDS: FINASTERIDE 5 MG TAB PO SCH (12:32)
[2019-07-03] MEDS ORDERED: TAMSULOSIN 0.4 MG CAP PO ONE (13:00)
--- NOTE | 2019-07-03 14:14 | IPNPDOC ---
Subjective Date Seen The patient was seen on 07/03/19. Subjective Chief Complaint/HPI denies discomfort. verbal and responsive. Constitutional: Denies: Chills ENT: Denies: Head Aches Pulmonary: Denies: Dyspnea, Cough Cardiovascular: Denies: Chest Pain, Palpitations Gastrointestinal: Denies: Nausea, Vomiting Endocrine: Denies: Polydipsia Neurological: Reports: Other Symptoms (confused, not always oriented. moves all extremities w/o obvious deficit, facies symmetrical.) Objective Physical Examination General Exam: Positive: Alert, No Acute Distress ENT Exam: Positive: Mucous membr. moist/pink Neck Exam: Negative: Supple, JVD Chest Exam: Positive: Clear to auscultation; Negative: Normal air movement Heart Exam: Positive: Rate Normal, Normal S1, Normal S2 Abdomen Exam: Positive: Soft; Negative: Normal bowel sounds, Tenderness Male Exam: Negative: Lesions, Edema, Erythema Extremity Exam: Positive: Edema Neuro Exam: Positive: Normal Speech (speech clear, content diminished compared to normal but markedly improved c/w 1 week ago.) Assessment /Plan Problems (1) MSSA (methicillin susceptible Staphylococcus aureus) Status: Acute Problem Text: 07/03: continuing cefazolin 2 gm q8rs, per Dr. Jarrett, 08/01 will be completion date. D1 cefazolin 2 q8H (given ho AVR) (prior 4D vanco)-emperic rx for MSSA IE/ R septic shoulder 06/29 L PICC placed per 's request-obvious HIGH risk of patient pulling out and/or recurrent DVT 06/30 AF, WBC 4.4, CRP 4.4, (5.2) (06/24/19 14) 06/21 sp R PICC, 06/25/19 removed as per cephalic v thrombus tc LEVON if condition stabilizes 06/24 BCX2 NG 06/18 BCX / MSSA-06/21 + ceftriaxone 2 gm QD 06/24/19 TTE: 1. Borderline concentric left ventricle hypertrophy. Normal regional LV wall motion and wall thickening. Normal LV systolic function. LVEF 70% by visual estimate. Grade 1 LV diastolic dysfunction (impaired relaxation filling pattern). 2. Cardiac valves were only moderately well visualized. This was a technically difficult study for assessment of vegetations. The image quality of the study was not adequate to rule out very small vegetations. 3. Moderate mitral annular calcification. Very mild mitral regurgitation. No mitral stenosis. 4. Status post aortic valve replacement with bioprosthesis which appears to be functionally normal. 5. Small pericardial effusion measuring 1.0 cm of the posterior wall of the left (2) Urinary retention Status: Acute Problem Text: 07/03: required straight cath early am. would prefer not to have solis in place, will st cath prn. 07/02 Pt this morning c/o discomfort assoc with cath, will attempt to remove and see how he does. tc TOV remains on tamsul 0.4 QHS 06/18 FC placed 2 retention 06/18 UCX NG (3) Right shoulder pain Status: Acute Problem Text: Family/px refusing aspiration for confirmation 06/26/19 MRI R shoulder, highly suspicious for septic arthritis: 1. Severe osteoarthritis of the glenohumeral joint. Bone marrow edema signal in the bony glenoid is likely secondary to osteoarthritis. Osteomyelitis is not excluded. 2. Rotator cuff tendinopathy, as described above. 3. Fluid tracking along the posterior deltoid, subscapularis, supraspinatus and infraspinatus muscles is nonspecific. This may be seen in the setting of trauma, as well as infectious myopathy. Clinical correlation is needed. 4. Glenohumeral joint effusion with synovitis. Septic arthritis is not excluded. Consider joint aspiration. 5. Subscapularis bursitis with synovitis, nonspecific. Septic bursitis is not excluded. (4) Dementia Status: Chronic Problem Text: 07/03: ultimately will likely need NH placement but suspect spouse will want to try to take him home first. case dw extensively who agrees c SHMUEL (5) Dyspepsia Status: Acute Problem Text: 07/02 symptoms improved. 06/29 + panto 40 BID, + Mylanta 30 q6H prn, ondan 4 qHprn (6) Thrombosis of right cephalic vein Status: Acute Response to Treatment: Improving Problem Text: no AC as per septic emboli 06/25/19 R PICC dc 06/24/19 RUE US: No sonographic evidence of deep vein thrombosis. 2. Mildly heterogeneous, and nonocclusive thrombus in the distal cephalic vein (done 2 increased R UE tumor/rubor/dolor) (7) Septic embolism Status: Acute Response to Treatment: Stable Problem Text: suspicious of IE c septic emboli 06/27 similar MS change, but deferred repeat MRI 06/23 MS change c new B septic emboli by MRI DOAC held given no evidence of benefit prevent emboli in IE AND increased risk of hemorrhagic conversion (8) Paroxysmal atrial fibrillation Status: Chronic Response to Treatment: Stable Problem Text: 07/03 only post op episode with his heart surgery, no confirmed recurrent episodes otherwise. so deemed not in need of anticoag except for anti- platelet therapy for drug eluting cardiac stents. per Dr. Small office notes-only known occurence was [id number] on AC for it. 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 stable, neuro status gradually improving. continuing to avoid anticoagulation due to unclear risk/benefit associated with treatment in setting of emboli associated with IE. even resumption of his previous clopidogrel therapy is complicated by his ITP which could relapse or escape control at any point. 06/23: due to strong suspicion for septic emboli (mri findings and positive blood culture for S aureus) and absent confirmation of Afib, and concern expressed by Dr. 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 06/14 changed LMWH to rivarox 06/13 presumptive AF, but none documented since admission on tele; long dw who will attempt to arrange 12/06 coverage for px to dc home 06/13 given embolic CVA; restart tele, + therapeutic LMWH 06/13/19 MRA brain/carotids s significant stenosis 06/13/19 MRI brain: Numerous small foci of restricted diffusion with associated ADC dropout throughout the bilateral cerebral hemispheres, measuring up to 11 x 8 mm in the right occipital lobe. (not appreciated by 06/11 CT head) 06/10 TTE: 1. Normal appearing and well seated aortic valve bioprosthesis. No aortic stenosis or regurgitation. 2. Mild concentric left ventricle hypertrophy. Normal regional left ventricular (LV) wall motion and wall thickening. Normal LV systolic function. Left ventricular ejection fraction (LVEF) 70% by visual estimate. Grade 1 LV diastolic dysfunction. Normal left atrial size and left atrial volume index. 3. Moderate mitral annular calcification. No mitral regurgitation or stenosis. 4. Normal right ventricle size and systolic function. 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 Lamb 06/29 178K 06/16 stable at 127K (14) Hx of aortic valve replacement Status: Chronic Problem Text: TTE as per MSSA sepsis Plan/VTE VTE Prophylaxis Ordered?: Yes VS, I&O, 24H, Fishbone Vital Signs/I&O Vital Signs Date Time Temp Pulse Resp B/P (MAP) Pulse Ox O2 Delivery O2 Flow Rate FiO2 07/03/19 08:42 18 07/03/19 08:14 135/94 07/03/19 08:13 78 07/03/19 06:00 98.1 97 07/01/19 10:09 2.0 I&O- Last 24 Hours up to 6 AM 07/03/19 05:59 Intake Total 1090 ml Output Total 2545 ml Balance -1455 ml Laboratory Data 24H LABS Laboratory Tests 2 07/02/19 16:48: Bedside Glucose (Misc Panel) 139H 07/02/19 20:38: Bedside Glucose (Misc Panel) 119H 07/03/19 06:07: Bedside Glucose (Misc Panel) 121H 07/03/19 11:46: Bedside Glucose (Misc Panel) 230H Microbiology Microbiology 06/24/19 Blood Culture - Final, Complete NO GROWTH AFTER 5 DAYS 06/24/19 Blood Culture - Final, Complete NO GROWTH AFTER 5 DAYS Blaine Byrd MD Jul 03, 2019 14:14
[2019-07-03] MEDS: HALOPERIDOL 5 MG/ML VIAL (J1630) IM PRN (18:30)
[2019-07-03] MEDS: ACETAMINOPHEN TAB 650MG DOSE (2X325MG) PO PRN (21:51)
[2019-07-03] MEDS: LATANOPROST 0.005% OPHTH SOLN 2.5 ML OU SCH (23:56)
[2019-07-04] MEDS: NORCO, ANEXSIA 5/325MG TABLET (HYDROcodone/ACETAMINOPHEN) PO PRN ×4 (00:03→22:08)
[2019-07-04] MEDS: NS 1,000 ML IV SCH (01:20)
[2019-07-04] MEDS: ceFAZolin SOD 2 GM in IV 1 EA IV SCH ×3 (01:20→17:52)
[2019-07-04] MEDS: HALOPERIDOL 5 MG/ML VIAL (J1630) IM PRN ×2 (03:43→21:40)
[2019-07-04 06:00] VITALS: BP 167/74
[2019-07-04 07:58] LABS: ALBUMIN 2.1 GM/DL (3.2-5.2); ALT/SGPT < 6 U/L (12-78); BILIRUBIN,TOTAL 0.2 MG/DL (0.2-1.0); BLOOD UREA NITROGEN 7 MG/DL (7-18); CALCIUM LEVEL 8.5 MG/DL (8.8-10.2); CARBON DIOXIDE LEVEL 26 MEQ/L (21-32); CHLORIDE LEVEL 110 MEQ/L (98-107); CREATININE FOR GFR 0.96 MG/DL (0.70-1.30); GLOMERULAR FILTRATION RATE > 60.0 (>42); GLUCOSE, FASTING 154 MG/DL (70-100); SODIUM LEVEL 142 MEQ/L (136-145); TOTAL PROTEIN 5.6 GM/DL (6.4-8.2)
[2019-07-04] MEDS: IPRATROPIUM 0.5MG/ALBUTEROL 2.5MG INH SOL UD 3ML (DUONEB)(J7620) NEB SCH ×4 (08:00→21:01)
[2019-07-04 08:12] LABS: BASO % 0.9 % (0.0-1.0); EOS # 0.1 10^3/uL (0.0-0.50); EOS % 1.3 % (0.0-3.0); HEMATOCRIT 31.5 % (42.0-52.0); LYMPH # 1.8 10^3/uL (1.5-4.5); LYMPH % 38.7 % (24.0-44.0); MEAN CORPUSCULAR HEMOGLOBIN 29.9 pg (27.0-33.0); MEAN CORPUSCULAR HGB CONC 31.7 g/dl (32.0-36.5); MONO # 0.4 10^3/uL (0.0-0.8); MONO % 7.9 % (0.0-5.0); NEUTROPHILS # 2.4 10^3/uL (1.8-7.7); PLATELET COUNT, AUTOMATED 154 10^3/uL (150-450); RED BLOOD COUNT 3.35 10^6/uL (4.30-6.10); WHITE BLOOD COUNT 4.7 10^3/uL (4.0-10.0)
[2019-07-04] MEDS: GABAPENTIN 300 MG CAP PO SCH ×3 (08:36→21:26)
[2019-07-04] MEDS: PANTOPRAZOLE 40MG TAB (PROTONIX) PO SCH ×2 (08:36→21:27)
[2019-07-04] MEDS: FAMOTIDINE 20 MG TAB PO SCH (08:36)
[2019-07-04] MEDS: levETIRAcetam 250MG TABLET (KEPPRA) PO SCH ×3 (08:36→21:26)
[2019-07-04] MEDS: FINASTERIDE 5 MG TAB PO SCH (08:36)
[2019-07-04] MEDS: POTASSIUM CHLORIDE 10 MEQ SR TABLET PO SCH ×3 (08:37→21:27)
[2019-07-04] MEDS: TAMSULOSIN 0.4 MG CAP PO SCH (08:37)
[2019-07-04] MEDS: LISINOPRIL 20 MG TAB PO SCH (08:37)
[2019-07-04] MEDS: MAGNESIUM CHLORIDE 64 MG TABCR (SLO MAG) PO SCH (08:38)
[2019-07-04] MEDS: TAVALISSE PO SCH ×3 (08:38→21:26)
[2019-07-04] MEDS: PRAVASTATIN 20 MG TAB PO SCH (08:38)
[2019-07-04] MEDS: HumaLOG INSULIN (NovoLOG) PER UNIT SC SCH ×4 (08:38→21:00)
[2019-07-04] MEDS: DICLOFENAC EPOLAMINE 1.3 % PATCH TOP SCH ×2 (08:39→21:27)
[2019-07-04] MEDS: BISOPROLOL FUMARATE 10 MG TAB PO SCH (08:40)
[2019-07-04] MEDS: NICOTINE 21MG/24HR 1 EA TRANSDERMAL TD SCH (10:41)
--- NOTE | 2019-07-04 10:48 | IPNPDOC ---
Subjective Date Seen The patient was seen on 07/04/19. Subjective Chief Complaint/HPI no pain. solis was replaced last night Constitutional: Denies: Chills ENT: Denies: Head Aches Pulmonary: Denies: Dyspnea, Cough Cardiovascular: Denies: Chest Pain, Orthopnea Gastrointestinal: Denies: Nausea, Abdominal Pain Musculoskeletal: Reports: Shoulder Pain (right, unchanged) Neurological: Reports: Confusion (ongoing problem with intermittent combativeness still requiring prn IM haldol); Denies: Weakness Psych: Reports: Mood Normal (at this time) Objective Physical Examination General Exam: Positive: Alert, No Acute Distress ENT Exam: Positive: Mucous membr. moist/pink Neck Exam: Negative: Supple, JVD Chest Exam: Positive: Clear to auscultation; Negative: Normal air movement Heart Exam: Positive: Rate Normal, Normal S1, Normal S2 Abdomen Exam: Positive: Soft; Negative: Normal bowel sounds, Tenderness Male Exam: Negative: Lesions, Edema, Erythema Extremity Exam: Positive: Edema (minimal) Neuro Exam: Positive: Normal Speech (speech clear, patient sleepy this am) Assessment /Plan Problems (1) MSSA (methicillin susceptible Staphylococcus aureus) Status: Acute Problem Text: 07/03: continuing cefazolin 2 gm q8rs, per Dr. Jarrett, 08/01 will be completion date. D1 cefazolin 2 q8H (given ho AVR) (prior 4D vanco)-emperic rx for MSSA IE/ R septic shoulder 06/29 L PICC placed per 's request-obvious HIGH risk of patient pulling out and/or recurrent DVT 06/30 AF, WBC 4.4, CRP 4.4, (5.2) (06/24/19) 06/21 sp R PICC, 06/25/19 removed as per cephalic v thrombus tc LEVON if condition stabilizes 06/24 BCX2 NG 06/18 BCX / MSSA-06/21 + ceftriaxone 2 gm QD 06/24/19 TTE: 1. Borderline concentric left ventricle hypertrophy. Normal regional LV wall motion and wall thickening. Normal LV systolic function. LVEF 70% by visual estimate. Grade 1 LV diastolic dysfunction (impaired relaxation filling pattern). 2. Cardiac valves were only moderately well visualized. This was a technically difficult study for assessment of vegetations. The image quality of the study was not adequate to rule out very small vegetations. 3. Moderate mitral annular calcification. Very mild mitral regurgitation. No mitral stenosis. 4. Status post aortic valve replacement with bioprosthesis which appears to be functionally normal. 5. Small pericardial effusion measuring 1.0 cm of the posterior wall of the left (2) Urinary retention Status: Acute Problem Text: 07/04: solis replaced will try again with trial of voiding in a couple of days. 07/03: required straight cath early am. would prefer not to have solis in place, will st cath prn. 07/02 Pt this morning c/o discomfort assoc with cath, will attempt to remove and see how he does. tc TOV remains on tamsul 0.4 QHS 06/18 FC placed 2 retention 06/18 UCX NG (3) Right shoulder pain Status: Acute Problem Text: Family/px refusing aspiration for confirmation 06/26/19 MRI R shoulder, highly suspicious for septic arthritis: 1. Severe osteoarthritis of the glenohumeral joint. Bone marrow edema signal in the bony glenoid is likely secondary to osteoarthritis. Osteomyelitis is not excluded. 2. Rotator cuff tendinopathy, as described above. 3. Fluid tracking along the posterior deltoid, subscapularis, supraspinatus and infraspinatus muscles is nonspecific. This may be seen in the setting of trauma, as well as infectious myopathy. Clinical correlation is needed. 4. Glenohumeral joint effusion with synovitis. Septic arthritis is not excluded. Consider joint aspiration. 5. Subscapularis bursitis with synovitis, nonspecific. Septic bursitis is not excluded. (4) Dementia Status: Chronic Problem Text: 07/03: ultimately will likely need NH placement but suspect spouse will want to try to take him home first. case dw extensively who agrees c POA (5) Dyspepsia Status: Acute Problem Text: 07/02 symptoms improved. 06/29 + panto 40 BID, + Mylanta 30 q6H prn, ondan 4 qHprn (6) Thrombosis of right cephalic vein Status: Acute Response to Treatment: Improving Problem Text: no AC as per septic emboli 06/25/19 R PICC dc 06/24/19 RUE US: No sonographic evidence of deep vein thrombosis. 2. Mildly heterogeneous, and nonocclusive thrombus in the distal cephalic vein (done 2 increased R UE tumor/rubor/dolor) (7) Septic embolism Status: Acute Response to Treatment: Stable Problem Text: suspicious of IE c septic emboli 06/27 similar MS change, but deferred repeat MRI 06/23 MS change c new B septic emboli by MRI DOAC held given no evidence of benefit prevent emboli in IE AND increased risk of hemorrhagic conversion (8) Paroxysmal atrial fibrillation Status: Chronic Response to Treatment: Stable Problem Text: 07/03 only post op episode with his heart surgery, no confirmed recurrent episodes otherwise. so deemed not in need of anticoag except for anti- platelet therapy for drug eluting cardiac stents. per Dr. Small office notes-only known occurence was [id number] on AC for it. 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 stable, neuro status gradually improving. continuing to avoid anticoagulation due to unclear risk/benefit associated with treatment in setting of emboli associated with IE. even resumption of his previous clopidogrel therapy is complicated by his ITP which could relapse or escape control at any point. 06/23: due to strong suspicion for septic emboli (mri findings and positive blood culture for S aureus) and absent confirmation of Afib, and concern expressed by Dr. 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 06/14 changed LMWH to rivarox 06/13 presumptive AF, but none documented since admission on tele; long dw who will attempt to arrange 12/06 coverage for px to dc home 06/13 given embolic CVA; restart tele, + therapeutic LMWH 06/13/19 MRA brain/carotids s significant stenosis 06/13/19 MRI brain: Numerous small foci of restricted diffusion with associated ADC dropout throughout the bilateral cerebral hemispheres, measuring up to 11 x 8 mm in the right occipital lobe. (not appreciated by 06/11 CT head) 06/10 TTE: 1. Normal appearing and well seated aortic valve bioprosthesis. No aortic stenosis or regurgitation. 2. Mild concentric left ventricle hypertrophy. Normal regional left ventricular (LV) wall motion and wall thickening. Normal LV systolic function. Left ventricular ejection fraction (LVEF) 70% by visual estimate. Grade 1 LV diastolic dysfunction. Normal left atrial size and left atrial volume index. 3. Moderate mitral annular calcification. No mitral regurgitation or stenosis. 4. Normal right ventricle size and systolic function. (11) Diabetes mellitus Status: Chronic Problem Text: HD glar 40, 05/2019 A1C 9.4 BG mid 100s c solely SSLI (12) Ataxia Status: Chronic Problem Text: 06/26 refusing PT 06/14 now safe per PT to dc home c services was NOT ARU candidate 2 (13) Thrombocytopenia Status: Acute Response to Treatment: Stable, Improving Problem Text: 07/04 platelet count remains controlled with Tavalisse. 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 Lamb 06/29 178K 06/16 stable at 127K (14) Hx of aortic valve replacement Status: Chronic Problem Text: TTE as per MSSA sepsis (15) CAD S/P percutaneous coronary angioplasty Status: Chronic Response to Treatment: Stable Problem Text: had been of his plavix due to ITP, now that his platelet count has resolved, he should resume plavix with monitoring of plavix. Plan/VTE VTE Prophylaxis Ordered?: Yes VS, I&O, 24H, Fishbone Vital Signs/I&O Vital Signs Date Time Temp Pulse Resp B/P (MAP) Pulse Ox O2 Delivery O2 Flow Rate FiO2 07/04/19 08:40 69 167/74 07/04/19 06:00 97.9 20 97 07/03/19 17:44 2.0 I&O- Last 24 Hours up to 6 AM 07/04/19 06:00 Intake Total 1310 ml Output Total 1250 ml Balance 60 ml Laboratory Data 24H LABS Laboratory Tests 2 07/03/19 11:46: Bedside Glucose (Misc Panel) 230H 07/03/19 16:57: Bedside Glucose (Misc Panel) 165H 07/03/19 21:01: Bedside Glucose (Misc Panel) 165H 07/04/19 05:37: Immature Granulocyte % (Auto) 0.2, White Blood Count 4.7, Red Blood Count 3.35L, Hemoglobin 10.0L, Hematocrit 31.5L, Mean Corpuscular Volume 94.0, Mean Corpuscular Hemoglobin 29.9, Mean Corpuscular Hemoglobin Concent 31.7L, Red Cell Distribution Width 13.8, Platelet Count 154, Neutrophils (%) (Auto) 51.0, Lymphocytes (%) (Auto) 38.7, Monocytes (%) (Auto) 7.9H, Eosinophils (%) (Auto) 1.3, Basophils (%) (Auto) 0.9, Neutrophils # (Auto) 2.4, Lymphocytes # (Auto) 1.8, Monocytes # (Auto) 0.4, Eosinophils # (Auto) 0.1, Basophils # (Auto) 0.0, Nucleated Red Blood Cells % (auto) 0.0, Anion Gap 6L, Glomerular Filtration Rate > 60.0, Blood Urea Nitrogen 7, Creatinine 0.96, Sodium Level 142, Potassium Level 4.0, Chloride Level 110H, Carbon Dioxide Level 26, Calcium Level 8.5L, Aspartate Amino Transf (AST/SGOT) 15, Alanine Aminotransferase (ALT/SGPT) < 6L, Alkaline Phosphatase 112, Total Bilirubin 0.2, Total Protein 5.6L, Albumin 2.1L, Albumin/Globulin Ratio 0.60L CBC/BMP Laboratory Tests 07/04/19 05:37 Red Blood Count 3.35 L, Mean Corpuscular Volume 94.0, Mean Corpuscular Hemog lobin 29.9, Mean Corpuscular Hemoglobin Concent 31.7 L, Red Cell Distribution Width 13.8, Neutrophils (%) (Auto) 51.0, Lymphocytes (%) (Auto) 38.7, Monocytes (%) (Auto) 7.9 H, Eosinophils (%) (Auto) 1.3, Basophils (%) (Auto) 0.9, Neutrophils # (Auto) 2.4, Lymphocytes # (Auto) 1.8, Monocytes # (Auto) 0.4, Eosinophils # (Auto) 0.1, Basophils # (Auto) 0.0, Calcium Level 8.5 L, Aspartate Amino Transf (AST/SGOT) 15, Alanine Aminotransferase (ALT/SGPT) < 6 L, Alkaline Phosphatase 112, Total Bilirubin 0.2, Total Protein 5.6 L, Albumin 2.1 L Microbiology Microbiology 06/24/19 Blood Culture - Final, Complete NO GROWTH AFTER 5 DAYS 06/24/19 Blood Culture - Final, Complete NO GROWTH AFTER 5 DAYS Blaine Byrd MD Jul 04, 2019 10:48
[2019-07-04] MEDS: CLOPIDOGREL 75 MG TAB PO SCH (13:36)
[2019-07-04 14:00] VITALS: BP 138/86
[2019-07-04] MEDS: LATANOPROST 0.005% OPHTH SOLN 2.5 ML OU SCH (21:27)
[2019-07-04 22:00] VITALS: BP 121/76
[2019-07-04] MEDS: MAALOX 30 ML SUSP *UDC PO PRN (23:42)
[2019-07-05] MEDS: HALOPERIDOL 5 MG/ML VIAL (J1630) IM PRN ×2 (01:54→06:48)
[2019-07-05] MEDS: ceFAZolin SOD 2 GM in IV 1 EA IV SCH ×3 (02:31→18:08)
[2019-07-05 06:00] VITALS: BP 117/78
[2019-07-05] MEDS: IPRATROPIUM 0.5MG/ALBUTEROL 2.5MG INH SOL UD 3ML (DUONEB)(J7620) NEB SCH ×3 (07:43→20:00)
[2019-07-05] MEDS: MAGNESIUM CHLORIDE 64 MG TABCR (SLO MAG) PO SCH (07:52)
[2019-07-05] MEDS: POTASSIUM CHLORIDE 10 MEQ SR TABLET PO SCH ×2 (07:53→23:40)
[2019-07-05] MEDS: CLOPIDOGREL 75 MG TAB PO SCH (07:53)
[2019-07-05] MEDS: TAVALISSE PO SCH ×2 (07:53→21:00)
[2019-07-05] MEDS: NORCO, ANEXSIA 5/325MG TABLET (HYDROcodone/ACETAMINOPHEN) PO PRN ×2 (07:54→23:38)
[2019-07-05] MEDS: FAMOTIDINE 20 MG TAB PO SCH (07:55)
[2019-07-05] MEDS: LISINOPRIL 20 MG TAB PO SCH (07:55)
[2019-07-05] MEDS: levETIRAcetam 250MG TABLET (KEPPRA) PO SCH ×2 (07:56→23:39)
[2019-07-05] MEDS: BISOPROLOL FUMARATE 10 MG TAB PO SCH (07:57)
[2019-07-05] MEDS: TAMSULOSIN 0.4 MG CAP PO SCH (07:57)
[2019-07-05] MEDS: GABAPENTIN 300 MG CAP PO SCH ×2 (07:57→23:39)
[2019-07-05] MEDS: PANTOPRAZOLE 40MG TAB (PROTONIX) PO SCH ×2 (07:58→23:40)
[2019-07-05] MEDS: PRAVASTATIN 20 MG TAB PO SCH (07:58)
[2019-07-05] MEDS: FINASTERIDE 5 MG TAB PO SCH (07:59)
[2019-07-05] MEDS: NICOTINE 21MG/24HR 1 EA TRANSDERMAL TD SCH (07:59)
[2019-07-05] MEDS: HumaLOG INSULIN (NovoLOG) PER UNIT SC SCH ×4 (08:18→21:00)
[2019-07-05] MEDS: NS 1,000 ML IV SCH (08:18)
[2019-07-05] MEDS: DICLOFENAC EPOLAMINE 1.3 % PATCH TOP SCH ×2 (08:19→21:00)
[2019-07-05] MEDS ORDERED: LORazepam 0.5 MG TAB PO SCH (09:00)
--- NOTE | 2019-07-05 12:08 | IPNPDOC ---
Subjective Date Seen The patient was seen on 07/05/19. Subjective Chief Complaint/HPI is unhappy with his continuing to receive haldol when he becomes belligerent and would like to try alternative solution to help with behavior. would like to try anxiolytic. discussed that these meds sometimes can cause dysinhibition resulting in worse behavior, but that we can try to see if this will work. also agrees to be called if nurses need help in controlling his behavior at any hour. General: Reports: ROS Unobtainable Objective Physical Examination General Exam: Positive: No Acute Distress, Other (sleeping after receiving haldol this am and po pain med.) ENT Exam: Positive: Mucous membr. moist/pink Neck Exam: Negative: Supple, JVD Chest Exam: Positive: Clear to auscultation; Negative: Normal air movement Heart Exam: Positive: Rate Normal, Normal S1, Normal S2 Abdomen Exam: Positive: Soft; Negative: Normal bowel sounds, Tenderness Male Exam: Negative: Lesions, Edema, Erythema Extremity Exam: Positive: Edema (minimal) Skin Exam: Positive: Nl turgor and temperature; Negative: Rash Assessment /Plan Problems (1) MSSA (methicillin susceptible Staphylococcus aureus) Status: Acute Problem Text: 07/04: continuing Cefazolin per ID recommendation 07/03: continuing cefazolin 2 gm q8rs, per Dr. Jarrett, 08/01 will be completion date. D1 cefazolin 2 q8H (given ho AVR) (prior 4D vanco)-emperic rx for MSSA IE/ R septic shoulder 06/29 L PICC placed per 's request-obvious HIGH risk of patient pulling out and/or recurrent DVT 06/30 AF, WBC 4.4, CRP 4.4, (5.2) (06/24/19 14) 06/21 sp R PICC, 06/25/19 removed as per cephalic v thrombus tc LEVON if condition stabilizes 06/24 BCX2 NG 06/18 BCX / MSSA-06/21 + ceftriaxone 2 gm QD 06/24/19 TTE: 1. Borderline concentric left ventricle hypertrophy. Normal regional LV wall motion and wall thickening. Normal LV systolic function. LVEF 70% by visual estimate. Grade 1 LV diastolic dysfunction (impaired relaxation filling pattern). 2. Cardiac valves were only moderately well visualized. This was a technically difficult study for assessment of vegetations. The image quality of the study was not adequate to rule out very small vegetations. 3. Moderate mitral annular calcification. Very mild mitral regurgitation. No mitral stenosis. 4. Status post aortic valve replacement with bioprosthesis which appears to be functionally normal. 5. Small pericardial effusion measuring 1.0 cm of the posterior wall of the left (2) Urinary retention Status: Acute Problem Text: 07/05: d/c solis, trial of voiding to ensue with preference for straight cath prn. 07/04: solis replaced will try again with trial of voiding in a couple of days. 07/03: required straight cath early am. would prefer not to have solis in place, will st cath prn. 07/02 Pt this morning c/o discomfort assoc with cath, will attempt to remove and see how he does. tc TOV remains on tamsul 0.4 QHS 06/18 FC placed 2 retention 06/18 UCX NG (3) Right shoulder pain Status: Acute Problem Text: 07/05 analgesic seems to be effective but still with pain with shoulder movement. Family/px refusing aspiration for confirmation 06/26/19 MRI R shoulder, highly suspicious for septic arthritis: 1. Severe osteoarthritis of the glenohumeral joint. Bone marrow edema signal in the bony glenoid is likely secondary to osteoarthritis. Osteomyelitis is not excluded. 2. Rotator cuff tendinopathy, as described above. 3. Fluid tracking along the posterior deltoid, subscapularis, supraspinatus and infraspinatus muscles is nonspecific. This may be seen in the setting of trauma, as well as infectious myopathy. Clinical correlation is needed. 4. Glenohumeral joint effusion with synovitis. Septic arthritis is not excluded. Consider joint aspiration. 5. Subscapularis bursitis with synovitis, nonspecific. Septic bursitis is not excluded. (4) Dementia Status: Chronic Problem Text: 07/05 still not taking in enough po to sustain. intermittent requirement for sedation to quell aggressive behavior is contributing to difficulty with achieving sufficient oral hydration. 07/03: ultimately will likely need NH placement but suspect spouse will want to try to take him home first. case dw extensively who agrees c POA (5) Dyspepsia Status: Acute Problem Text: 07/02 symptoms improved. 06/29 + panto 40 BID, + Mylanta 30 q6H prn, ondan 4 qHprn (6) Thrombosis of right cephalic vein Status: Acute Response to Treatment: Improving Problem Text: no AC as per septic emboli 06/25/19 R PICC dc 06/24/19 RUE US: No sonographic evidence of deep vein thrombosis. 2. Mildly heterogeneous, and nonocclusive thrombus in the distal cephalic vein (done 2 increased R UE tumor/rubor/dolor) (7) Septic embolism Status: Acute Response to Treatment: Stable Problem Text: suspicious of IE c septic emboli 06/27 similar MS change, but deferred repeat MRI 06/23 MS change c new B septic emboli by MRI DOAC held given no evidence of benefit prevent emboli in IE AND increased risk of hemorrhagic conversion (8) Paroxysmal atrial fibrillation Status: Chronic Response to Treatment: Stable Problem Text: 07/03 only post op episode with his heart surgery, no confirmed recurrent episodes otherwise. so deemed not in need of anticoag except for anti- platelet therapy for drug eluting cardiac stents. per Dr. Small office notes-only known occurence was [id number] on AC for it. 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 stable, neuro status gradually improving. continuing to avoid anticoagulation due to unclear risk/benefit associated with treatment in setting of emboli associated with IE. even resumption of his previous clopidogrel ther apy is complicated by his ITP which could relapse or escape control at any point. 06/23: due to strong suspicion for septic emboli (mri findings and positive blood culture for S aureus) and absent confirmation of Afib, and concern expressed by Dr. Santamaria for prudence of anticoagulation in the setting of septic emboli; therefore, dced rivarox-last dose 8/03/08 06/22: continue to show dementia features c/w multi-infarct dementia. 06/14 changed LMWH to rivarox 06/13 presumptive AF, but none documented since admission on tele; long dw who will attempt to arrange 12/06 coverage for px to dc home 06/13 given embolic CVA; restart tele, + therapeutic LMWH 06/13/19 MRA brain/carotids s significant stenosis 06/13/19 MRI brain: Numerous small foci of restricted diffusion with associated ADC dropout throughout the bilateral cerebral hemispheres, measuring up to 11 x 8 mm in the right occipital lobe. (not appreciated by 06/11 CT head) 06/10 TTE: 1. Normal appearing and well seated aortic valve bioprosthesis. No aortic stenosis or regurgitation. 2. Mild concentric left ventricle hypertrophy. Normal regional left ventricular (LV) wall motion and wall thickening. Normal LV systolic function. Left ventricular ejection fraction (LVEF) 70% by visual estimate. Grade 1 LV diastolic dysfunction. Normal left atrial size and left atrial volume index. 3. Moderate mitral annular calcification. No mitral regurgitation or stenosis. 4. Normal right ventricle size and systolic function. (11) Diabetes mellitus Status: Chronic Problem Text: HD glar 40, 05/2019 A1C 9.4 BG mid 100s c solely SSLI (12) Ataxia Status: Chronic Problem Text: 06/26 refusing PT 06/14 now safe per PT to dc home c services was NOT ARU candidate 2 (13) Thrombocytopenia Status: Acute Response to Treatment: Stable, Improving Problem Text: 07/04 platelet count remains controlled with Tavalisse. 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 Lamb 06/29 178K 06/16 stable at 127K (14) Hx of aortic valve replacement Status: Chronic Problem Text: [facility] (15) CAD S/P percutaneous coronary angioplasty Status: Chronic Response to Treatment: Stable Problem Text: had been of his plavix due to ITP, now that his platelet count has resolved, he should resume plavix with monitoring of plavix. Plan/VTE VTE Prophylaxis Ordered?: Yes Plan IVF: Continue Medications: Other Med: (d/c haldol. call prn. start trial with low dose benzo to see if behavior can be helped.) Advance Directives: DNR VS, I&O, 24H, Fishbone Vital Signs/I&O Vital Signs Date Time Temp Pulse Resp B/P (MAP) Pulse Ox O2 Delivery O2 Flow Rate FiO2 07/05/19 08:24 19 07/05/19 07:57 69 117/68 07/05/19 06:00 98.1 97 07/03/19 17:44 2.0 I&O- Last 24 Hours up to 6 AM 07/05/19 05:59 Intake Total 1410 ml Output Total 2000 ml Balance -590 ml Laboratory Data 24H LABS Laboratory Tests 2 07/04/19 16:40: Bedside Glucose (Misc Panel) 188H 07/05/19 08:13: Bedside Glucose (Misc Panel) 141H 07/05/19 11:46: Bedside Glucose (Misc Panel) 147H Blaine Byrd MD Jul 05, 2019 12:07
[2019-07-05 14:00] VITALS: BP 109/56
[2019-07-05] MEDS: LORazepam 0.5 MG TAB PO SCH (14:40)
[2019-07-05] MEDS: LATANOPROST 0.005% OPHTH SOLN 2.5 ML OU SCH (21:00)
[2019-07-05 22:00] VITALS: BP 114/77
[2019-07-06] MEDS: ceFAZolin SOD 2 GM in IV 1 EA IV SCH ×3 (03:14→17:18)
[2019-07-06 05:55] LABS: HEMATOCRIT 30.1 % (42.0-52.0); HEMOGLOBIN 9.5 g/dl (13.5-17.5); MEAN CORPUSCULAR HEMOGLOBIN 30.1 pg (27.0-33.0); MEAN CORPUSCULAR HGB CONC 31.6 g/dl (32.0-36.5); MEAN CORPUSCULAR VOLUME 95.3 fl (80.0-96.0); PLATELET COUNT, AUTOMATED 156 10^3/uL (150-450); RED BLOOD COUNT 3.16 10^6/uL (4.30-6.10); WHITE BLOOD COUNT 3.2 10^3/uL (4.0-10.0)
[2019-07-06 06:00] VITALS: BP 120/76
[2019-07-06 06:20] LABS: BLOOD UREA NITROGEN 6 MG/DL (7-18); CALCIUM LEVEL 8.6 MG/DL (8.8-10.2); CARBON DIOXIDE LEVEL 27 MEQ/L (21-32); CHLORIDE LEVEL 111 MEQ/L (98-107); CREATININE FOR GFR 0.96 MG/DL (0.70-1.30); GLOMERULAR FILTRATION RATE > 60.0 (>42); GLUCOSE, FASTING 98 MG/DL (70-100); POTASSIUM SERUM 3.9 MEQ/L (3.5-5.1); SODIUM LEVEL 145 MEQ/L (136-145)
[2019-07-06] MEDS: HumaLOG INSULIN (NovoLOG) PER UNIT SC SCH ×4 (07:12→21:00)
[2019-07-06] MEDS: DICLOFENAC EPOLAMINE 1.3 % PATCH TOP SCH ×2 (07:58→20:24)
[2019-07-06] MEDS: NS 1,000 ML IV SCH ×2 (07:58→23:57)
[2019-07-06] MEDS: NICOTINE 21MG/24HR 1 EA TRANSDERMAL TD SCH (07:59)
[2019-07-06] MEDS: TAVALISSE PO SCH ×2 (08:00→20:24)
[2019-07-06] MEDS: IPRATROPIUM 0.5MG/ALBUTEROL 2.5MG INH SOL UD 3ML (DUONEB)(J7620) NEB SCH ×3 (08:00→20:00)
[2019-07-06] MEDS: FINASTERIDE 5 MG TAB PO SCH (08:01)
[2019-07-06] MEDS: TAMSULOSIN 0.4 MG CAP PO SCH (08:01)
[2019-07-06] MEDS: POTASSIUM CHLORIDE 10 MEQ SR TABLET PO SCH ×2 (08:01→20:23)
[2019-07-06] MEDS: FAMOTIDINE 20 MG TAB PO SCH (08:01)
[2019-07-06] MEDS: CLOPIDOGREL 75 MG TAB PO SCH (08:01)
[2019-07-06] MEDS: MAGNESIUM CHLORIDE 64 MG TABCR (SLO MAG) PO SCH (08:01)
[2019-07-06] MEDS: LISINOPRIL 20 MG TAB PO SCH (08:02)
[2019-07-06] MEDS: PANTOPRAZOLE 40MG TAB (PROTONIX) PO SCH ×2 (08:02→20:24)
[2019-07-06] MEDS: levETIRAcetam 250MG TABLET (KEPPRA) PO SCH ×2 (08:02→20:23)
[2019-07-06] MEDS: PRAVASTATIN 20 MG TAB PO SCH (08:02)
[2019-07-06] MEDS: GABAPENTIN 300 MG CAP PO SCH ×2 (08:02→20:23)
[2019-07-06] MEDS: BISOPROLOL FUMARATE 10 MG TAB PO SCH (08:03)
[2019-07-06] MEDS: NORCO, ANEXSIA 5/325MG TABLET (HYDROcodone/ACETAMINOPHEN) PO PRN ×3 (08:03→23:56)
[2019-07-06] MEDS: LORazepam 0.5 MG TAB PO SCH (13:13)
--- NOTE | 2019-07-06 13:42 | IPN ---
DATE: 07/06/2019 Augie is seen on progressive care unit (PCU). He was sleeping. He had agitation previously and I did not want to awaken him at his family's request. As noted yesterday, she would prefer he receive Ativan which seems to control him better (or at least sedate him more). PHYSICAL EXAMINATION: Vital signs stable. Afebrile. Lungs clear. Heart regular rhythm. 1/6 systolic ejection murmur. Abdomen soft and nontender. LABS: Electrolytes unremarkable. White count 3.2. Hemoglobin 9.5. IMPRESSION: 1. Methicillin-susceptible staphylococcus aureus bacteremia. 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 2. Dementia with delirium. Behavior control has been problematic. Continue his Ativan as needed. Haldol has been discontinued. 3. Diabetes. Blood sugars have been under good control. Oral intake is erratic and limits ability to tightly manage his blood sugars.
[2019-07-06 14:00] VITALS: BP 117/51
[2019-07-06] MEDS: LATANOPROST 0.005% OPHTH SOLN 2.5 ML OU SCH (20:24)
[2019-07-06 22:00] VITALS: BP 131/82
[2019-07-07] MEDS: ceFAZolin SOD 2 GM in IV 1 EA IV SCH ×3 (02:21→18:26)
[2019-07-07 05:43] LABS: HEMOGLOBIN 10.1 g/dl (13.5-17.5); MEAN CORPUSCULAR HGB CONC 30.6 g/dl (32.0-36.5); MEAN CORPUSCULAR VOLUME 94.8 fl (80.0-96.0); PLATELET COUNT, AUTOMATED 241 10^3/uL (150-450); RED BLOOD COUNT 3.48 10^6/uL (4.30-6.10); WHITE BLOOD COUNT 3.9 10^3/uL (4.0-10.0)
[2019-07-07 06:00] VITALS: BP 131/87
[2019-07-07 06:10] LABS: BLOOD UREA NITROGEN 8 MG/DL (7-18); CALCIUM LEVEL 8.9 MG/DL (8.8-10.2); CARBON DIOXIDE LEVEL 29 MEQ/L (21-32); CHLORIDE LEVEL 112 MEQ/L (98-107); GLOMERULAR FILTRATION RATE > 60.0 (>42); GLUCOSE, FASTING 125 MG/DL (70-100); POTASSIUM SERUM 3.9 MEQ/L (3.5-5.1); SODIUM LEVEL 146 MEQ/L (136-145)
[2019-07-07] MEDS: IPRATROPIUM 0.5MG/ALBUTEROL 2.5MG INH SOL UD 3ML (DUONEB)(J7620) NEB SCH ×3 (08:00→20:00)
[2019-07-07] MEDS: PANTOPRAZOLE 40MG TAB (PROTONIX) PO SCH ×2 (08:29→21:48)
[2019-07-07] MEDS: POTASSIUM CHLORIDE 10 MEQ SR TABLET PO SCH ×2 (08:29→21:48)
[2019-07-07] MEDS: GABAPENTIN 300 MG CAP PO SCH ×2 (08:29→21:49)
[2019-07-07] MEDS: DICLOFENAC EPOLAMINE 1.3 % PATCH TOP SCH ×2 (08:29→21:53)
[2019-07-07] MEDS: TAMSULOSIN 0.4 MG CAP PO SCH (08:29)
[2019-07-07] MEDS: NICOTINE 21MG/24HR 1 EA TRANSDERMAL TD SCH (08:29)
[2019-07-07] MEDS: CLOPIDOGREL 75 MG TAB PO SCH (08:29)
[2019-07-07] MEDS: NORCO, ANEXSIA 5/325MG TABLET (HYDROcodone/ACETAMINOPHEN) PO PRN ×3 (08:30→21:53)
[2019-07-07] MEDS: PRAVASTATIN 20 MG TAB PO SCH (08:30)
[2019-07-07] MEDS: levETIRAcetam 250MG TABLET (KEPPRA) PO SCH ×2 (08:30→21:49)
[2019-07-07] MEDS: FINASTERIDE 5 MG TAB PO SCH (08:30)
[2019-07-07] MEDS: LISINOPRIL 20 MG TAB PO SCH (08:30)
[2019-07-07] MEDS: FAMOTIDINE 20 MG TAB PO SCH (08:30)
[2019-07-07] MEDS: TAVALISSE PO SCH ×2 (08:31→21:47)
[2019-07-07] MEDS: MAGNESIUM CHLORIDE 64 MG TABCR (SLO MAG) PO SCH (08:31)
[2019-07-07] MEDS: BISOPROLOL FUMARATE 10 MG TAB PO SCH (08:35)
[2019-07-07] MEDS: HumaLOG INSULIN (NovoLOG) PER UNIT SC SCH ×4 (08:37→21:00)
[2019-07-07] MEDS: LORazepam 0.5 MG TAB PO SCH (13:37)
[2019-07-07 14:00] VITALS: BP 158/80
--- NOTE | 2019-07-07 14:17 | IPN ---
DATE: 07/07/2019 Augie is seen [facility]. He was fully alert and interactive today. He recognized me from the doorway. We had a long discussion. He is getting discouraged about his prolonged hospitalization. He has dementia with some delirium so I tried to reorient him to the reasons of him being in the hospital. Physical Exam: Vital signs stable. 131/87. Lungs clear. Heart regular rhythm. 11/25 systolic ejection murmur. Abdomen soft, nontender. No masses. No peripheral edema. Labs: Sodium 147, white count 3.9. Impression: 1. Methicillin-sensitive Staphylococcus aureus bacteremia. Plan is to continue his Ancef 2 grams IV every 8 hours. Completion date 08/01/2019. Reinforced this to patient and family. 2. Dementia with delirium. Asked nursing staff to allow him to go off the floor with the family. I think if he went down to the atrium and spent some time off the floor would help his mental status. The rest of the medical problems are stable.
[2019-07-07] MEDS: KCL 20MEQ IN 0.45NS 1000ML 1,000 ML IV SCH (16:41)
[2019-07-07] MEDS: LATANOPROST 0.005% OPHTH SOLN 2.5 ML OU SCH (21:53)
[2019-07-07 22:00] VITALS: BP 151/83
[2019-07-08 06:00] VITALS: BP 160/89
[2019-07-08 07:06] LABS: HEMATOCRIT 31.8 % (42.0-52.0); HEMOGLOBIN 10.1 g/dl (13.5-17.5); MEAN CORPUSCULAR HEMOGLOBIN 29.8 pg (27.0-33.0); MEAN CORPUSCULAR HGB CONC 31.8 g/dl (32.0-36.5); MEAN CORPUSCULAR VOLUME 93.8 fl (80.0-96.0); PLATELET COUNT, AUTOMATED 238 10^3/uL (150-450); RED BLOOD COUNT 3.39 10^6/uL (4.30-6.10); WHITE BLOOD COUNT 3.8 10^3/uL (4.0-10.0)
[2019-07-08 07:34] LABS: BLOOD UREA NITROGEN 9 MG/DL (7-18); CALCIUM LEVEL 8.9 MG/DL (8.8-10.2); CARBON DIOXIDE LEVEL 25 MEQ/L (21-32); CHLORIDE LEVEL 111 MEQ/L (98-107); CREATININE FOR GFR 1.08 MG/DL (0.70-1.30); GLOMERULAR FILTRATION RATE > 60.0 (>42); GLUCOSE, FASTING 170 MG/DL (70-100); POTASSIUM SERUM 3.8 MEQ/L (3.5-5.1); SODIUM LEVEL 145 MEQ/L (136-145)
[2019-07-08] MEDS: IPRATROPIUM 0.5MG/ALBUTEROL 2.5MG INH SOL UD 3ML (DUONEB)(J7620) NEB SCH ×3 (08:00→20:00)
[2019-07-08] MEDS: HumaLOG INSULIN (NovoLOG) PER UNIT SC SCH ×4 (08:54→21:00)
[2019-07-08] MEDS: DICLOFENAC EPOLAMINE 1.3 % PATCH TOP SCH ×2 (08:54→22:45)
[2019-07-08] MEDS: TAMSULOSIN 0.4 MG CAP PO SCH (08:56)
[2019-07-08] MEDS: CLOPIDOGREL 75 MG TAB PO SCH (08:56)
[2019-07-08] MEDS: TAVALISSE PO SCH ×2 (08:56→22:44)
[2019-07-08] MEDS: NICOTINE 21MG/24HR 1 EA TRANSDERMAL TD SCH (08:56)
[2019-07-08] MEDS: FAMOTIDINE 20 MG TAB PO SCH (08:56)
[2019-07-08] MEDS: PRAVASTATIN 20 MG TAB PO SCH (08:57)
[2019-07-08] MEDS: POTASSIUM CHLORIDE 10 MEQ SR TABLET PO SCH ×2 (08:57→22:45)
[2019-07-08] MEDS: PANTOPRAZOLE 40MG TAB (PROTONIX) PO SCH ×2 (08:57→22:44)
[2019-07-08] MEDS: LISINOPRIL 20 MG TAB PO SCH (08:57)
[2019-07-08] MEDS: GABAPENTIN 300 MG CAP PO SCH ×2 (08:57→22:44)
[2019-07-08] MEDS: FINASTERIDE 5 MG TAB PO SCH (08:57)
[2019-07-08] MEDS: levETIRAcetam 250MG TABLET (KEPPRA) PO SCH ×2 (08:57→22:45)
--- NOTE | 2019-07-08 10:27 | IPNPDOC ---
Subjective Date Seen The patient was seen on 07/08/19. Subjective Chief Complaint/HPI syncope, encephalopathy Events since last encounter Continues to pull out IV sites including replaced PICC line. This occurs during moments of agitation. Constitutional: Denies: Chills, Fever, Night Sweats Pulmonary: Denies: Dyspnea, Cough Cardiovascular: Denies: Chest Pain, Palpitations, Orthopnea, Paroxysmal Noc. Dyspnea, Lt Headedness Gastrointestinal: Denies: Nausea, Vomiting, Abdominal Pain, Diarrhea, Constipation Objective Physical Examination General Exam: Positive: No Acute Distress ENT Exam: Positive: Mucous membr. moist/pink Neck Exam: Negative: Supple, JVD Chest Exam: Positive: Clear to auscultation; Negative: Normal air movement Heart Exam: Positive: Rate Normal, Normal S1, Normal S2 Abdomen Exam: Positive: Soft; Negative: Normal bowel sounds, Tenderness Male Exam: Negative: Lesions, Edema, Erythema Extremity Exam: Positive: Edema (minimal) Skin Exam: Positive: Nl turgor and temperature; Negative: Rash Assessment /Plan Problems (1) Unresponsive episode Status: Acute Problem Text: 07/08/19 1530 recurrent episode of unresponsive lasting ~5 minutes, normal tonicity s focality c stable VS ("felt like everything went dark")-similar to previous episodes 2 septic embolic encephalopathy caution for hemorrhagic conversion given since 07/04 on clopid (2) Septic embolism Status: Acute Response to Treatment: Stable Problem Text: suspicious of IE c septic emboli/ caution for hemorrhagic conversion given since 07/04 on clopid 06/27 similar MS change, but deferred repeat MRI 06/23 MS change c new B septic emboli by MRI DOAC held given no evidence of benefit prevent emboli in IE AND increased risk of hemorrhagic conversion (3) MSSA (methicillin susceptible Staphylococcus aureus) Status: Acute Problem Text: 07/08 changed to cetriaxone 2 IV QD given unable to obtain peripheral line/px has removed previous PICC within 10 minutes of placement and cannot reliably take po 07/04: continuing Cefazolin per ID recommendation 07/03: continuing cefazolin 2 gm q8rs, per Dr. Jarrett, 08/01 will be completion date. D10 cefazolin 2 q8H (given ho AVR) (prior 4D vanco)-emperic rx for MSSA IE/ R septic shoulder 06/29 L PICC placed per 's request-obvious HIGH risk of patient pulling out and/or recurrent DVT 06/30 AF, WBC 4.4, CRP 4.4, (5.2) (06/24/19 14) 06/21 sp R PICC, 06/25/19 removed as per cephalic v thrombus tc LEVON if condition stabilizes 06/24 BCX2 NG 06/18 BCX 2/3 MSSA-06/21 + ceftriaxone 2 gm QD 06/24/19 TTE: 1. Borderline concentric left ventricle hypertrophy. Normal regional LV wall motion and wall thickening. Normal LV systolic function. LVEF 70% by visual estimate. Grade 1 LV diastolic dysfunction (impaired relaxation filling pattern). 2. Cardiac valves were only moderately well visualized. This was a technically difficult study for assessment of vegetations. The image quality of the study was not adequate to rule out very small vegetations. 3. Moderate mitral annular calcification. Very mild mitral regurgitation. No mitral stenosis. 4. Status post aortic valve replacement with bioprosthesis which appears to be functionally normal. 5. Small pericardial effusion measuring 1.0 cm of the posterior wall of the left (4) Urinary retention Status: Acute Problem Text: 07/05: d/c [facility], trial of voiding to ensue with preference for straight cath prn. 07/04: solis replaced will try again with trial of voiding in a couple of days. 07/03: required straight cath early am. would prefer not to have solis in place, will st cath prn. 07/02 Pt this morning c/o discomfort assoc with cath, will attempt to remove and see how he does. tc TOV remains on tamsul 0.4 QHS 06/18 FC placed 2 retention 06/18 UCX NG (5) Right shoulder pain Status: Acute Problem Text: 07/05 analgesic seems to be effective but still with pain with shoulder movement. Family/px refusing aspiration for confirmation 06/26/19 MRI R shoulder, highly suspicious for septic arthritis: 1. Severe osteoarthritis of the glenohumeral joint. Bone marrow edema signal in the bony glenoid is likely secondary to osteoarthritis. Osteomyelitis is not excluded. 2. Rotator cuff tendinopathy, as described above. 3. Fluid tracking along the posterior deltoid, subscapularis, supraspinatus and infraspinatus muscles is nonspecific. This may be seen in the setting of trauma, as well as infectious myopathy. Clinical correlation is needed. 4. Glenohumeral joint effusion with synovitis. Septic arthritis is not excluded. Consider joint aspiration. 5. Subscapularis bursitis with synovitis, nonspecific. Septic bursitis is not excluded. (6) Dementia Status: Chronic Problem Text: 07/05 still not taking in enough po to sustain. intermittent requirement for sedation to quell aggressive behavior is contributing to difficulty with achieving sufficient oral hydration. 07/03: ultimately will likely need NH placement but suspect spouse will want to try to take him home first. case dw extensively who agrees c POA (7) Dyspepsia Status: Acute Problem Text: 07/02 symptoms improved. 06/29 + panto 40 BID, + Mylanta 30 q6H prn, ondan 4 qHprn (8) Thrombosis of right cephalic vein Status: Acute Response to Treatment: Improving Problem Text: no AC as per septic emboli 06/25/19 R PICC dc 06/24/19 RUE US: No sonographic evidence of deep vein thrombosis. 2. Mildly heterogeneous, and nonocclusive thrombus in the distal cephalic vein (done 2 increased R UE tumor/rubor/dolor) (9) Paroxysmal atrial fibrillation Status: Chronic Response to Treatment: Stable Problem Text: 07/03 only post op episode with his heart surgery, no confirmed recurrent episodes otherwise. so deemed not in need of anticoag except for anti- platelet therapy for drug eluting cardiac stents. per Dr. Small office notes-only known occurence was [id number] on AC for it. 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 stable, neuro status gradually improving. continuing to avoid anticoagulation due to unclear risk/benefit associated with treatment in setting of emboli associated with IE. even resumption of his previous clopidogrel therapy is complicated by his ITP which could relapse or escape control at any point. 06/23: due to strong suspicion for septic emboli (mri findings and positive blood culture for S aureus) and absent confirmation of Afib, and concern expressed by Dr. 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 06/14 changed LMWH to rivarox 06/13 presumptive AF, but none documented since admission on tele; long dw who will attempt to arrange 12/06 coverage for px to dc home 06/13 given embolic CVA; restart tele, + therapeutic LMWH 06/13/19 MRA brain/carotids s significant stenosis 06/13/19 MRI brain: Numerous small foci of restricted diffusion with associated ADC dropout throughout the bilateral cerebral hemispheres, measuring up to 11 x 8 mm in the right occipital lobe. (not appreciated by 06/11 CT head) 06/10 TTE: 1. Normal appearing and well seated aortic valve bioprosthesis. No aortic stenosis or regurgitation. 2. Mild concentric left ventricle hypertrophy. Normal regional left ventricular (LV) wall motion and wall thickening. Normal LV systolic function. Left ventricular ejection fraction (LVEF) 70% by visual estimate. Grade 1 LV diastolic dysfunction. Normal left atrial size and left atrial volume index. 3. Moderate mitral annular calcification. No mitral regurgitation or stenosis. 4. Normal right ventricle size and systolic function. (12) Diabetes mellitus Status: Chronic Problem Text: HD glar 40, 05/2019 A1C 9.4 BG mid 100s c solely SSLI (13) Ataxia Status: Chronic Problem Text: 06/26 refusing PT 06/14 now safe per PT to dc home c services was NOT ARU candidate 2 (14) Thrombocytopenia Status: Acute Response to Treatment: Stable, Improving Problem Text: 07/04 platelet count remains controlled with Tavalisse. 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 Lamb 06/29 178K 06/16 stable at 127K (15) Hx of aortic valve replacement Status: Chronic Problem Text: TTE as per MSSA sepsis (16) CAD S/P percutaneous coronary angioplasty Status: Chronic Response to Treatment: Stable Problem Text: had been of his plavix due to ITP, now that his platelet count has resolved, he should resume plavix with monitoring of plavix. Plan/VTE VTE Prophylaxis Ordered?: Yes Plan IVF: Continue Medications: Other Med: (d/c haldol. call prn. start trial with low dose benzo to see if behavior can be helped.) Advance Directives: DNR VS, I&O, 24H, Fishbone Vital Signs/I&O Vital Signs Date Time Temp Pulse Resp B/P (MAP) Pulse Ox O2 Delivery O2 Flow Rate FiO2 07/08/19 08:57 147/80 07/08/19 06:00 96.7 95 16 99 07/03/19 17:44 2.0 I&O- Last 24 Hours up to 6 AM 07/08/19 06:00 Intake Total 1440 ml Output Total 900 ml Balance 540 ml Laboratory Data 24H LABS Laboratory Tests 2 07/07/19 11:49: Bedside Glucose (Misc Panel) 192H 07/07/19 16:35: Bedside Glucose (Misc Panel) 194H 07/08/19 06:44: Nucleated Red Blood Cells % (auto) 0.0, Anion Gap 9, Glomerular Filtration Rate > 60.0, Blood Urea Nitrogen 9, Creatinine 1.08, Sodium Level 145, Potassium Level 3.8, Chloride Level 111H, Carbon Dioxide Level 25, Calcium Level 8.9 CBC/BMP Laboratory Tests 07/08/19 06:44 Red Blood Count 3.39 L, Mean Corpuscular Volume 93.8, Mean Corpuscular Hemoglobin 29.8, Mean Corpuscular Hemoglobin Concent 31.8 L, Red Cell Distribution Width 14.2, Calcium Level 8.9 Xenia Alvarado Jul 08, 2019 10:27 Cristi Carroll M.D. Jul 08, 2019 16:07
[2019-07-08] MEDS: MAGNESIUM CHLORIDE 64 MG TABCR (SLO MAG) PO SCH (13:27)
[2019-07-08] MEDS: BISOPROLOL FUMARATE 10 MG TAB PO SCH (13:27)
[2019-07-08] MEDS: LORazepam 0.5 MG TAB PO SCH (13:27)
[2019-07-08 14:00] VITALS: BP 155/66
[2019-07-08] MEDS: NORCO, ANEXSIA 5/325MG TABLET (HYDROcodone/ACETAMINOPHEN) PO PRN (17:40)
[2019-07-08 22:00] VITALS: BP 147/69
[2019-07-08] MEDS: LATANOPROST 0.005% OPHTH SOLN 2.5 ML OU SCH (22:45)
[2019-07-09] MEDS: ceFAZolin SOD 2 GM in IV 1 EA IV SCH ×3 (01:08→17:43)
[2019-07-09] MEDS: NORCO, ANEXSIA 5/325MG TABLET (HYDROcodone/ACETAMINOPHEN) PO PRN (02:06)
[2019-07-09] MEDS: KCL 20MEQ IN 0.45NS 1000ML 1,000 ML IV SCH (04:00)
[2019-07-09 06:00] VITALS: BP 142/69
[2019-07-09 06:00] LABS: HEMATOCRIT 31.1 % (42.0-52.0); MEAN CORPUSCULAR HEMOGLOBIN 29.9 pg (27.0-33.0); MEAN CORPUSCULAR HGB CONC 32.2 g/dl (32.0-36.5); MEAN CORPUSCULAR VOLUME 93.1 fl (80.0-96.0); PLATELET COUNT, AUTOMATED 213 10^3/uL (150-450); RED BLOOD COUNT 3.34 10^6/uL (4.30-6.10); WHITE BLOOD COUNT 4.2 10^3/uL (4.0-10.0)
[2019-07-09 06:15] LABS: BLOOD UREA NITROGEN 8 MG/DL (7-18); C REACTIVE PROTEIN QUANTITATIV 1.17 MG/DL (0.00-0.30); CALCIUM LEVEL 8.7 MG/DL (8.8-10.2); CARBON DIOXIDE LEVEL 26 MEQ/L (21-32); CHLORIDE LEVEL 109 MEQ/L (98-107); CREATININE FOR GFR 0.92 MG/DL (0.70-1.30); GLOMERULAR FILTRATION RATE > 60.0 (>42); GLUCOSE, FASTING 162 MG/DL (70-100); SODIUM LEVEL 143 MEQ/L (136-145)
[2019-07-09 07:17] LABS: ERYTHROCYTE SEDIMENTATION RATE 53 mm/hr (0-20)
[2019-07-09] MEDS: IPRATROPIUM 0.5MG/ALBUTEROL 2.5MG INH SOL UD 3ML (DUONEB)(J7620) NEB SCH ×3 (08:00→19:55)
[2019-07-09] MEDS: HumaLOG INSULIN (NovoLOG) PER UNIT SC SCH ×4 (08:20→21:00)
[2019-07-09] MEDS: TAMSULOSIN 0.4 MG CAP PO SCH (08:20)
[2019-07-09] MEDS: FAMOTIDINE 20 MG TAB PO SCH (08:21)
[2019-07-09] MEDS: PRAVASTATIN 20 MG TAB PO SCH (08:21)
[2019-07-09] MEDS: TAVALISSE PO SCH ×2 (08:21→22:13)
[2019-07-09] MEDS: FINASTERIDE 5 MG TAB PO SCH (08:21)
[2019-07-09] MEDS: PANTOPRAZOLE 40MG TAB (PROTONIX) PO SCH ×2 (08:21→22:12)
[2019-07-09] MEDS: MAGNESIUM CHLORIDE 64 MG TABCR (SLO MAG) PO SCH (08:21)
[2019-07-09] MEDS: LISINOPRIL 20 MG TAB PO SCH (08:21)
[2019-07-09] MEDS: levETIRAcetam 250MG TABLET (KEPPRA) PO SCH ×2 (08:21→22:13)
[2019-07-09] MEDS: BISOPROLOL FUMARATE 10 MG TAB PO SCH (08:21)
[2019-07-09] MEDS: CLOPIDOGREL 75 MG TAB PO SCH (08:22)
[2019-07-09] MEDS: DICLOFENAC EPOLAMINE 1.3 % PATCH TOP SCH ×2 (08:22→22:14)
[2019-07-09] MEDS: NICOTINE 21MG/24HR 1 EA TRANSDERMAL TD SCH (08:22)
[2019-07-09] MEDS: POTASSIUM CHLORIDE 10 MEQ SR TABLET PO SCH ×2 (08:22→22:13)
[2019-07-09] MEDS: GABAPENTIN 300 MG CAP PO SCH ×2 (08:22→22:13)
[2019-07-09] MEDS: LORazepam 0.5 MG TAB PO SCH (13:08)
[2019-07-09 14:00] VITALS: BP 146/67
--- NOTE | 2019-07-09 14:30 | IPN ---
DATE: 07/09/2019 Augie is seen [facility]. He keeps pulling his IVs out, not allowing us to gain IV access to intravenous antibiotics treated for Methicillin-resistant Staphylococcus aureus (MRSA) bacteremia with a presumed septic emboli. PHYSICAL EXAMINATION: Afebrile, 144/62. He is alert and conversant, recognized me. Answered cooperative. HEENT unremarkable. Lungs clear. Heart regular rhythm, 1/6 systolic ejection murmur. Abdomen soft, nontender. No masses. No peripheral edema. CBC, BNP unremarkable. PLAN: I have been in communication with Dr. Jarrett, appreciate her input. The patient will not allow us to continue IV access. 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 The patient is allergic to penicillins, therefore we will use linezolid 600 mg twice a day with rifampin 600 mg twice a day.
--- NOTE | 2019-07-09 14:42 | REP ---
REDICTATION OF CT OF THE BRAIN DONE 06/28/2019 AT 4 P.M.: This is a redictation of CT of the brain done 06/28/2019 at 4 p.m. and recorded as completed that day at 4:30 p.m. with a note in the patient's [employer] indicating the findings. It has been resubmitted for interpretation since the original dictation has been lost. The exam is compared to all priors, the latest of which is dated 06/23/2019. There is no change from the prior exam. There is no acute intracranial pathology. There is cerebral and cerebellar atrophy with deep white matter ischemic change. This is all stable. There is no change in appearance of the skull. There is no change in the paranasal sinuses or mastoid air cells. There is no evidence of acute disease. IMPRESSION: Stable appearing chronic changes, as described above. Electronically Signed by Shaheed Kline DO 07/09/2019 03:36 P
--- NOTE | 2019-07-09 16:07 | IPN ---
DATE: 07/09/2019 Mr. Samano is getting worse. He is more confused and encephalopathic. He had a followup head CT today. He pulled out all his IV including his peripherally inserted central catheter (PICC) line. He has no more IV access. LABS: White count is 3.8, hemoglobin 10.1, hematocrit 31.8, platelets 238. Sodium 145, potassium 3.8, chloride 111, bicarbonate 25, BUN 9, creatinine 1.08, glucose 170, calcium 8.9. Last CRP was done on 07/02/2019 and was 3.75. Blood cultures were last done on 06/24/2019 and were no growth. They have not been repeated since then. IMPRESSION: 1. Staphylococcus aureus MSSA sepsis with right shoulder septic arthritis on IV cefazolin. 2. No IV access. Will need to switch to intramuscular (IM) Rocephin for the time being. End of therapy was scheduled to be 08/01/2019. 3. Mental status changes with multiple emboli to the brain probably from staphylococcus aureus. Worsening mental status. The patient is DO NOT RESUSCITATE but not DO NOT INTUBATE. Continue with IM Rocephin if that is the only option since no IV access. Repeat blood cultures and C-reactive protein (CRP) and sedimentation rate to see if patient has recurrent bacteremia. Very poor prognosis. Infectious disease signing off as I do not have any further input. MTDD
[2019-07-09] MEDS: cefTRIAXone SOD 1 GM VIAL (J0696) IM SCH (20:00)
[2019-07-09] MEDS: LINEZOLID 600MG TABLET (ZYVOX) PO SCH (22:12)
[2019-07-09] MEDS: LATANOPROST 0.005% OPHTH SOLN 2.5 ML OU SCH (22:15)
[2019-07-09 22:30] VITALS: BP 154/77
[2019-07-10 06:00] VITALS: BP 154/74
[2019-07-10 06:23] LABS: HEMATOCRIT 29.5 % (42.0-52.0); HEMOGLOBIN 9.4 g/dl (13.5-17.5); MEAN CORPUSCULAR HEMOGLOBIN 29.1 pg (27.0-33.0); MEAN CORPUSCULAR HGB CONC 31.9 g/dl (32.0-36.5); MEAN CORPUSCULAR VOLUME 91.3 fl (80.0-96.0); PLATELET COUNT, AUTOMATED 173 10^3/uL (150-450); RED BLOOD COUNT 3.23 10^6/uL (4.30-6.10); WHITE BLOOD COUNT 3.5 10^3/uL (4.0-10.0)
[2019-07-10 06:56] LABS: BLOOD UREA NITROGEN 10 MG/DL (7-18); CALCIUM LEVEL 8.6 MG/DL (8.8-10.2); CARBON DIOXIDE LEVEL 26 MEQ/L (21-32); CHLORIDE LEVEL 109 MEQ/L (98-107); CREATININE FOR GFR 1.02 MG/DL (0.70-1.30); GLOMERULAR FILTRATION RATE > 60.0 (>42); GLUCOSE, FASTING 213 MG/DL (70-100); SODIUM LEVEL 142 MEQ/L (136-145)
[2019-07-10] MEDS: IPRATROPIUM 0.5MG/ALBUTEROL 2.5MG INH SOL UD 3ML (DUONEB)(J7620) NEB SCH ×3 (07:26→20:00)
[2019-07-10] MEDS: HumaLOG INSULIN (NovoLOG) PER UNIT SC SCH ×4 (08:07→21:00)
[2019-07-10] MEDS: NICOTINE 21MG/24HR 1 EA TRANSDERMAL TD SCH (08:08)
[2019-07-10] MEDS: MAGNESIUM CHLORIDE 64 MG TABCR (SLO MAG) PO SCH (08:08)
[2019-07-10] MEDS: PANTOPRAZOLE 40MG TAB (PROTONIX) PO SCH ×2 (08:09→22:29)
[2019-07-10] MEDS: TAMSULOSIN 0.4 MG CAP PO SCH (08:09)
[2019-07-10] MEDS: levETIRAcetam 250MG TABLET (KEPPRA) PO SCH ×2 (08:09→22:28)
[2019-07-10] MEDS: FAMOTIDINE 20 MG TAB PO SCH (08:09)
[2019-07-10] MEDS: LINEZOLID 600MG TABLET (ZYVOX) PO SCH ×2 (08:10→22:29)
[2019-07-10] MEDS: CLOPIDOGREL 75 MG TAB PO SCH (08:10)
[2019-07-10] MEDS: PRAVASTATIN 20 MG TAB PO SCH (08:10)
[2019-07-10] MEDS: GABAPENTIN 300 MG CAP PO SCH ×2 (08:10→22:29)
[2019-07-10] MEDS: LISINOPRIL 20 MG TAB PO SCH (08:10)
[2019-07-10] MEDS: POTASSIUM CHLORIDE 10 MEQ SR TABLET PO SCH ×2 (08:10→22:28)
[2019-07-10] MEDS: FINASTERIDE 5 MG TAB PO SCH (08:11)
[2019-07-10] MEDS: TAVALISSE PO SCH ×2 (08:11→22:32)
[2019-07-10] MEDS: DICLOFENAC EPOLAMINE 1.3 % PATCH TOP SCH ×2 (08:16→22:27)
[2019-07-10] MEDS: BISOPROLOL FUMARATE 10 MG TAB PO SCH (08:21)
--- NOTE | 2019-07-10 11:16 | IPNPDOC ---
Subjective Date Seen The patient was seen on 07/10/19. Subjective Chief Complaint/HPI reports that he continues to have "unresponsive episodes" - last one she witnessed over weekend. Seem to occur while eating or after eating. Slumps in chair and is unresponsive for about 10 minutes then spontaneously wakes. VS & BS checked during episode by staff normal. Constitutional: Denies: Chills, Fever Pulmonary: Denies: Dyspnea, Cough Cardiovascular: Denies: Chest Pain Gastrointestinal: Denies: Nausea, Vomiting, Abdominal Pain, Diarrhea, Constipation Musculoskeletal: Reports: Other Symptoms (chronic LBP and proximal leg weakness per - secondary to spinal stenosis) Objective Physical Examination General Exam: Positive: Alert, No Acute Distress, Other (Clear and coherent today - able to give history. Cooperative without agitation) ENT Exam: Positive: Mucous membr. moist/pink Neck Exam: Negative: Supple, JVD Chest Exam: Positive: Clear to auscultation; Negative: Normal air movement Heart Exam: Positive: Rate Normal, Normal S1, Normal S2 Abdomen Exam: Positive: Soft; Negative: Normal bowel sounds, Tenderness Male Exam: Negative: Lesions, Edema, Erythema Extremity Exam: Positive: Edema (minimal) Skin Exam: Positive: Nl turgor and temperature; Negative: Rash Psych Exam: Positive: Mental status NL Assessment /Plan Problems (1) Unresponsive episode Status: Acute Problem Text: 07/10 - Wkup overall suggests episodes are related to septic embolic encephalopathy (No epileptiform activity on EEG, but abnormalities consistent with encephalopathy) There is some thought this may be behavioral 07/08/19 1530 recurrent episode of unresponsive lasting ~5 minutes, normal tonicity s focality c stable VS ("felt like everything went dark")-similar to previous episodes 2 septic embolic encephalopathy caution for hemorrhagic conversion given since 07/04 on clopid (2) Septic embolism Status: Acute Response to Treatment: Stable Problem Text: 07/10 - suspicious of IE c septic emboli/ caution for hemorrhagic conversion given since 07/[address] brain 07/08 - Stable appearing chronic changes, as described above. 06/27 similar MS change, but deferred repeat MRI 06/23 MS change c new B septic emboli by MRI DOAC held given no evidence of benefit prevent emboli in IE AND increased risk of hemorrhagic conversion (3) MSSA (methicillin susceptible Staphylococcus aureus) Status: Acute Problem Text: - Lost IV access (Patient continues to pull out IVs) - Case discussed with Dr. Jarrett yesterday - switched to Zyvox and Rifampin with Rocephin IV prn if refuses po abx or is too agitated 07/08 changed to cetriaxone 2 IV QD given unable to obtain peripheral line/px has removed previous PICC within 10 minutes of placement and cannot reliably take po 07/04: continuing Cefazolin per ID recommendation 07/03: continuing cefazolin 2 gm q8rs, per Dr. Jarrett, 08/01 will be completion date. D1 cefazolin 2 q8H (given ho AVR) (prior 4D vanco)-emperic rx for MSSA IE/ R septic shoulder 06/29 L PICC placed per 's request-obvious HIGH risk of patient pulling out and/or recurrent DVT 06/30 AF, WBC 4.4, CRP 4.4, (5.2) (06/24/19 14) 06/21 sp R PICC, 06/25/19 removed as per cephalic v thrombus tc LEVON if condition stabilizes 06/24 BCX2 NG 06/18 BCX 12/23 MSSA-06/21 + ceftriaxone 2 gm QD 06/24/19 TTE: 1. Borderline concentric left ventricle hypertrophy. Normal regional LV wall motion and wall thickening. Normal LV systolic function. LVEF 70% by visual estimate. Grade 1 LV diastolic dysfunction (impaired relaxation filling pattern). 2. Cardiac valves were only moderately well visualized. This was a technically difficult study for assessment of vegetations. The image quality of the study was not adequate to rule out very small vegetations. 3. Moderate mitral annular calcification. Very mild mitral regurgitation. No mitral stenosis. 4. Status post aortic valve replacement with bioprosthesis which appears to be functionally normal. 5. Small pericardial effusion measuring 1.0 cm of the posterior wall of the left (4) Right shoulder pain Status: Acute Problem Text: 07/10 - Flector patch 07/05 analgesic seems to be effective but still with pain with shoulder movement. Family/px refusing aspiration for confirmation 06/26/19 MRI R shoulder, highly suspicious for septic arthritis: 1. Severe osteoarthritis of the glenohumeral joint. Bone marrow edema signal in the bony glenoid is likely secondary to osteoarthritis. Osteomyelitis is not excluded. 2. Rotator cuff tendinopathy, as described above. 3. Fluid tracking along the posterior deltoid, subscapularis, supraspinatus and infraspinatus muscles is nonspecific. This may be seen in the setting of trauma, as well as infectious myopathy. Clinical correlation is needed. 4. Glenohumeral joint effusion with synovitis. Septic arthritis is not excluded. Consider joint aspiration. 5. Subscapularis bursitis with synovitis, nonspecific. Septic bursitis is not excluded. (5) Urinary retention Status: Acute Problem Text: 07/10 - Cont Flomax/Proscar - Voiding normally with d/c of solis 07/05: d/c solis, trial of voiding to ensue with preference for straight cath prn. 07/04: solis replaced will try again with trial of voiding in a couple of days. 07/03: required straight cath early am. would prefer not to have solis in place, will st cath prn. 07/02 Pt this morning c/o discomfort assoc with cath, will attempt to remove and see how he does. tc TOV remains on tamsul 0.4 QHS 06/18 FC placed 2 retention 06/18 UCX NG (6) Dementia Status: Chronic Problem Text: 07/08 - Continues to have sudden episodes of irritability and angry outbursts requiring sitter. thinks Risperdal made him worse and dose not like his to get Haldol. Getting Ativan 0.5 mg at 2 pm daily, but per staff this is not completely controlling his behavioral issues/mood swings. Would consider Zyprexa but wants to increase Ativan to BID 07/05 still not taking in enough po to sustain. intermittent requirement for sedation to quell aggressive behavior is contributing to difficulty with ach ieving sufficient oral hydration. 07/03: ultimately will likely need NH placement but suspect spouse will want to try to take him home first. case dw extensively who agrees c POA (7) Dyspepsia Status: Acute Problem Text: 07/02 symptoms improved. 06/29 + panto 40 BID, + Mylanta 30 q6H prn, ondan 4 qHprn (8) Thrombosis of right cephalic vein Status: Acute Response to Treatment: Improving Problem Text: no AC as per septic emboli 06/25/19 R PICC dc 06/24/19 RUE US: No sonographic evidence of deep vein thrombosis. 2. Mildly heterogeneous, and nonocclusive thrombus in the distal cephalic vein (done 2 increased R UE tumor/rubor/dolor) (9) Paroxysmal atrial fibrillation Status: Chronic Response to Treatment: Stable Problem Text: 07/03 only post op episode with his heart surgery, no confirmed recurrent episodes otherwise. so deemed not in need of anticoag except for anti- platelet therapy for drug eluting cardiac stents. per Dr. Small office notes-only known occurence was [id number] on AC for it. 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 stable, neuro status gradually improving. continuing to avoid anticoagulation due to unclear risk/benefit associated with treatment in setting of emboli associated with IE. even resumption of his previous clopidogrel therapy is complicated by his ITP which could relapse or escape control at any point. 06/23: due to strong suspicion for septic emboli (mri findings and positive blood culture for S aureus) and absent confirmation of Afib, and concern expressed by Dr. 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 06/14 changed LMWH to rivarox 06/13 presumptive AF, but none documented since admission on tele; long dw who will attempt to arrange 12/06 coverage for px to dc home 06/13 given embolic CVA; restart tele, + therapeutic LMWH 06/13/19 MRA brain/carotids s significant stenosis 06/13/19 MRI brain: Numerous small foci of restricted diffusion with associated ADC dropout throughout the bilateral cerebral hemispheres, measuring up to 11 x 8 mm in the right occipital lobe. (not appreciated by 06/11 CT head) 06/10 TTE: 1. Normal appearing and well seated aortic valve bioprosthesis. No aortic stenosis or regurgitation. 2. Mild concentric left ventricle hypertrophy. Normal regional left ventricular (LV) wall motion and wall thickening. Normal LV systolic function. Left ventricular ejection fraction (LVEF) 70% by visual estimate. Grade 1 LV diastolic dysfunction. Normal left atrial size and left atrial volume index. 3. Moderate mitral annular calcification. No mitral regurgitation or stenosis. 4. Normal right ventricle size and systolic function. (12) Diabetes mellitus Status: Chronic Problem Text: HD glar 40, 05/2019 A1C 9.4 BG mid 100s c solely SSLI (13) Ataxia Status: Chronic Problem Text: 06/26 refusing PT 06/14 now safe per PT to dc home c services was NOT ARU candidate (14) Thrombocytopenia Status: Acute Response to Treatment: Stable, Improving Problem Text: 07/04 platelet count remains controlled with Tavalisse. 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 Lamb 06/29 178K 06/16 stable at 127K (15) Hx of aortic valve replacement Status: Chronic Problem Text: TTE as per MSSA sepsis (16) CAD S/P percutaneous coronary angioplasty Status: Chronic Response to Treatment: Stable Problem Text: had been of his plavix due to ITP, now that his platelet count has resolved, he should resume plavix with monitoring of plavix. Plan/VTE VTE Prophylaxis Ordered?: Yes Plan IVF: Continue Medications: Other Med: (d/c haldol. call prn. start trial with low dose benzo to see if behavior can be helped.) Advance Directives: DNR VS, I&O, 24H, Fishbone Vital Signs/I&O Vital Signs Date Time Temp Pulse Resp B/P (MAP) Pulse Ox O2 Delivery O2 Flow Rate FiO2 07/10/19 06:00 98.1 76 16 154/74 (100) 97 I&O- Last 24 Hours up to 6 AM 07/10/19 06:00 Intake Total 916 ml Output Total 1000 ml Balance -84 ml Laboratory Data 24H LABS Laboratory Tests 2 07/09/19 13:04: Bedside Glucose (Misc Panel) 154H 07/09/19 17:35: Bedside Glucose (Misc Panel) 153H 07/09/19 22:06: Bedside Glucose (Misc Panel) 238H 07/10/19 05:49: Nucleated Red Blood Cells % (auto) 0.0, Anion Gap 7L, Glomerular Filtration Rate > 60.0, Blood Urea Nitrogen 10, Creatinine 1.02, Sodium Level 142, Potassium Level 4.0, Chloride Level 109H, Carbon Dioxide Level 26, Calcium Level 8.6L CBC/BMP Laboratory Tests 07/10/19 05:49 Red Blood Count 3.23 L, Mean Corpuscular Volume 91.3, Mean Corpuscular Hemoglobin 29.1, Mean Corpuscular Hemoglobin Concent 31.9 L, Red Cell Distribution Width 14.4, Calcium Level 8.6 L Microbiology Microbiology 07/09/19 Blood Culture - Preliminary, Resulted No growth after 24 hours . All specim... SARABJIT PATEL PA-C Jul 10, 2019 11:16
[2019-07-10 14:00] VITALS: BP 155/76
[2019-07-10] MEDS: LORazepam 0.5 MG TAB PO SCH (14:05)
[2019-07-10] MEDS: NORCO, ANEXSIA 5/325MG TABLET (HYDROcodone/ACETAMINOPHEN) PO PRN ×3 (14:06→22:30)
[2019-07-10] MEDS: KCL 20MEQ IN 0.45NS 1000ML 1,000 ML IV SCH ×2 (19:43)
[2019-07-10] MEDS: cefTRIAXone SOD 1 GM VIAL (J0696) IM SCH (20:00)
[2019-07-10 22:00] VITALS: BP 157/72
[2019-07-10] MEDS: LATANOPROST 0.005% OPHTH SOLN 2.5 ML OU SCH (22:31)
[2019-07-11 06:00] VITALS: BP 143/62
[2019-07-11] MEDS: MAGNESIUM CHLORIDE 64 MG TABCR (SLO MAG) PO SCH (07:39)
[2019-07-11] MEDS: HumaLOG INSULIN (NovoLOG) PER UNIT SC SCH ×4 (07:40→21:00)
[2019-07-11] MEDS: levETIRAcetam 250MG TABLET (KEPPRA) PO SCH ×2 (07:41→21:37)
[2019-07-11] MEDS: GABAPENTIN 300 MG CAP PO SCH ×2 (07:41→21:37)
[2019-07-11] MEDS: FINASTERIDE 5 MG TAB PO SCH (07:41)
[2019-07-11] MEDS: BISOPROLOL FUMARATE 10 MG TAB PO SCH (07:41)
[2019-07-11] MEDS: TAVALISSE PO SCH ×2 (07:42→21:38)
[2019-07-11] MEDS: POTASSIUM CHLORIDE 10 MEQ SR TABLET PO SCH ×2 (07:42→21:38)
[2019-07-11] MEDS: TAMSULOSIN 0.4 MG CAP PO SCH (07:42)
[2019-07-11] MEDS: LISINOPRIL 20 MG TAB PO SCH (07:43)
[2019-07-11] MEDS: FAMOTIDINE 20 MG TAB PO SCH (07:43)
[2019-07-11] MEDS: PANTOPRAZOLE 40MG TAB (PROTONIX) PO SCH ×2 (07:43→21:38)
[2019-07-11] MEDS: LINEZOLID 600MG TABLET (ZYVOX) PO SCH ×2 (07:43→21:42)
[2019-07-11] MEDS: CLOPIDOGREL 75 MG TAB PO SCH (07:43)
[2019-07-11] MEDS: PRAVASTATIN 20 MG TAB PO SCH (07:43)
[2019-07-11] MEDS: DICLOFENAC EPOLAMINE 1.3 % PATCH TOP SCH ×2 (07:44→21:42)
[2019-07-11] MEDS: NICOTINE 21MG/24HR 1 EA TRANSDERMAL TD SCH (07:44)
[2019-07-11] MEDS: IPRATROPIUM 0.5MG/ALBUTEROL 2.5MG INH SOL UD 3ML (DUONEB)(J7620) NEB SCH ×3 (07:46→20:00)
[2019-07-11] MEDS: NORCO, ANEXSIA 5/325MG TABLET (HYDROcodone/ACETAMINOPHEN) PO PRN (10:44)
[2019-07-11] MEDS: LORazepam 0.5 MG TAB PO SCH (13:06)
[2019-07-11 14:00] VITALS: BP 137/58
[2019-07-11] MEDS: cefTRIAXone SOD 1 GM VIAL (J0696) IM SCH (20:00)
[2019-07-11] MEDS: LATANOPROST 0.005% OPHTH SOLN 2.5 ML OU SCH (21:38)
[2019-07-12] MEDS: NORCO, ANEXSIA 5/325MG TABLET (HYDROcodone/ACETAMINOPHEN) PO PRN ×2 (01:15→12:53)
[2019-07-12] MEDS: ACETAMINOPHEN TAB 650MG DOSE (2X325MG) PO PRN ×2 (04:27→14:37)
[2019-07-12 06:00] VITALS: BP 144/83
[2019-07-12] MEDS: IPRATROPIUM 0.5MG/ALBUTEROL 2.5MG INH SOL UD 3ML (DUONEB)(J7620) NEB SCH ×3 (08:00→20:18)
[2019-07-12] MEDS: HumaLOG INSULIN (NovoLOG) PER UNIT SC SCH ×4 (08:43→21:00)
[2019-07-12] MEDS: MAGNESIUM CHLORIDE 64 MG TABCR (SLO MAG) PO SCH (08:43)
[2019-07-12] MEDS: LINEZOLID 600MG TABLET (ZYVOX) PO SCH ×2 (08:44→21:32)
[2019-07-12] MEDS: NICOTINE 21MG/24HR 1 EA TRANSDERMAL TD SCH (08:44)
[2019-07-12] MEDS: BISOPROLOL FUMARATE 10 MG TAB PO SCH (08:45)
[2019-07-12] MEDS: LISINOPRIL 20 MG TAB PO SCH (08:47)
[2019-07-12] MEDS: TAMSULOSIN 0.4 MG CAP PO SCH (08:47)
[2019-07-12] MEDS: CLOPIDOGREL 75 MG TAB PO SCH (08:47)
[2019-07-12] MEDS: POTASSIUM CHLORIDE 10 MEQ SR TABLET PO SCH ×2 (08:47→21:32)
[2019-07-12] MEDS: FINASTERIDE 5 MG TAB PO SCH (08:47)
[2019-07-12] MEDS: PRAVASTATIN 20 MG TAB PO SCH (08:48)
[2019-07-12] MEDS: GABAPENTIN 300 MG CAP PO SCH ×2 (08:48→21:32)
[2019-07-12] MEDS: levETIRAcetam 250MG TABLET (KEPPRA) PO SCH ×2 (08:48→21:32)
[2019-07-12] MEDS: FAMOTIDINE 20 MG TAB PO SCH (08:48)
[2019-07-12] MEDS: PANTOPRAZOLE 40MG TAB (PROTONIX) PO SCH ×2 (08:48→21:32)
[2019-07-12] MEDS: DICLOFENAC EPOLAMINE 1.3 % PATCH TOP SCH ×2 (08:49→21:31)
[2019-07-12] MEDS: TAVALISSE PO SCH ×2 (12:54→21:31)
[2019-07-12] MEDS: FUROSEMIDE 20 MG TAB PO SCH (13:00)
--- NOTE | 2019-07-12 14:10 | IPN ---
DATE: 07/12/2019 Sukhi [facility]. I actually spent time speaking with his , who is frustrated over his lack of progress, and spent a lot of time trying to reorient Charline to Augie's dementia problems. He is developing edema of his hands, of his arms and legs. He used to be on furosemide 20 mg three times a day. We have been able to hold off on that during the hospitalization, but it has reached the point now where we need to restart this. His albumin is low, which I think is contributing to the edema. PHYSICAL EXAM: Vital signs stable. Intake and output (I's and O's) about a liter positive over the last 5 days. IMPRESSION: Edema of the extremities. PLAN: 1. Start furosemide 20 mg daily. Check CBC, BMP tomorrow. 2. Methicillin Staphylococcus aureus bacteremia from his septic arthritis, right shoulder. He is on Zyvox and rifampin after discussion with infectious disease. At this point, we should be pursuing short-term rehabilitation.
[2019-07-12] MEDS: LORazepam 0.5 MG TAB PO SCH (14:36)
[2019-07-12] MEDS: LATANOPROST 0.005% OPHTH SOLN 2.5 ML OU SCH (21:33)
[2019-07-13] MEDS: NORCO, ANEXSIA 5/325MG TABLET (HYDROcodone/ACETAMINOPHEN) PO PRN ×3 (00:11→21:40)
[2019-07-13 06:00] VITALS: BP 104/61
[2019-07-13 06:04] LABS: HEMATOCRIT 30.7 % (42.0-52.0); HEMOGLOBIN 9.9 g/dl (13.5-17.5); MEAN CORPUSCULAR HEMOGLOBIN 29.9 pg (27.0-33.0); MEAN CORPUSCULAR HGB CONC 32.2 g/dl (32.0-36.5); MEAN CORPUSCULAR VOLUME 92.7 fl (80.0-96.0); PLATELET COUNT, AUTOMATED 169 10^3/uL (150-450); RED BLOOD COUNT 3.31 10^6/uL (4.30-6.10); WHITE BLOOD COUNT 3.3 10^3/uL (4.0-10.0)
[2019-07-13 06:31] LABS: BLOOD UREA NITROGEN 8 MG/DL (7-18); CARBON DIOXIDE LEVEL 28 MEQ/L (21-32); CHLORIDE LEVEL 107 MEQ/L (98-107); CREATININE FOR GFR 1.15 MG/DL (0.70-1.30); GLOMERULAR FILTRATION RATE > 60.0 (>42); GLUCOSE, FASTING 165 MG/DL (70-100); POTASSIUM SERUM 3.7 MEQ/L (3.5-5.1); SODIUM LEVEL 143 MEQ/L (136-145)
[2019-07-13] MEDS: IPRATROPIUM 0.5MG/ALBUTEROL 2.5MG INH SOL UD 3ML (DUONEB)(J7620) NEB SCH ×3 (07:51→20:00)
[2019-07-13] MEDS: HumaLOG INSULIN (NovoLOG) PER UNIT SC SCH ×4 (08:46→21:00)
[2019-07-13] MEDS: DICLOFENAC EPOLAMINE 1.3 % PATCH TOP SCH ×2 (08:47→21:38)
[2019-07-13] MEDS: NICOTINE 21MG/24HR 1 EA TRANSDERMAL TD SCH (08:47)
[2019-07-13] MEDS: PANTOPRAZOLE 40MG TAB (PROTONIX) PO SCH ×2 (08:48→21:40)
[2019-07-13] MEDS: TAMSULOSIN 0.4 MG CAP PO SCH (08:48)
[2019-07-13] MEDS: FINASTERIDE 5 MG TAB PO SCH (08:48)
[2019-07-13] MEDS: GABAPENTIN 300 MG CAP PO SCH ×2 (08:48→21:39)
[2019-07-13] MEDS: levETIRAcetam 250MG TABLET (KEPPRA) PO SCH ×2 (08:49→21:40)
[2019-07-13] MEDS: FAMOTIDINE 20 MG TAB PO SCH (08:49)
[2019-07-13] MEDS: PRAVASTATIN 20 MG TAB PO SCH (08:49)
[2019-07-13] MEDS: BISOPROLOL FUMARATE 10 MG TAB PO SCH (08:49)
[2019-07-13] MEDS: LINEZOLID 600MG TABLET (ZYVOX) PO SCH ×2 (08:49→21:38)
[2019-07-13] MEDS: POTASSIUM CHLORIDE 10 MEQ SR TABLET PO SCH ×2 (08:49→21:39)
[2019-07-13] MEDS: MAGNESIUM CHLORIDE 64 MG TABCR (SLO MAG) PO SCH (08:49)
[2019-07-13] MEDS: CLOPIDOGREL 75 MG TAB PO SCH (08:49)
[2019-07-13] MEDS: LISINOPRIL 20 MG TAB PO SCH (08:50)
[2019-07-13] MEDS: FUROSEMIDE 20 MG TAB PO SCH (08:50)
[2019-07-13] MEDS: TAVALISSE PO SCH ×2 (08:50→21:41)
[2019-07-13 13:50] VITALS: BP 166/94
[2019-07-13] MEDS: LORazepam 0.5 MG TAB PO SCH (14:00)
[2019-07-13] MEDS ORDERED: HALOPERIDOL 5 MG/ML VIAL (J1630) IM PRN (16:45)
[2019-07-13] MEDS: LATANOPROST 0.005% OPHTH SOLN 2.5 ML OU SCH (21:40)
[2019-07-14] MEDS: ACETAMINOPHEN TAB 650MG DOSE (2X325MG) PO PRN (00:37)
[2019-07-14 06:00] VITALS: BP 112/60
[2019-07-14] MEDS: IPRATROPIUM 0.5MG/ALBUTEROL 2.5MG INH SOL UD 3ML (DUONEB)(J7620) NEB SCH ×3 (07:27→20:00)
[2019-07-14] MEDS: BISOPROLOL FUMARATE 10 MG TAB PO SCH (09:00)
[2019-07-14] MEDS: FINASTERIDE 5 MG TAB PO SCH (09:14)
[2019-07-14] MEDS: POTASSIUM CHLORIDE 10 MEQ SR TABLET PO SCH ×2 (09:15→20:11)
[2019-07-14] MEDS: PANTOPRAZOLE 40MG TAB (PROTONIX) PO SCH ×2 (09:15→20:10)
[2019-07-14] MEDS: levETIRAcetam 250MG TABLET (KEPPRA) PO SCH ×2 (09:16→20:14)
[2019-07-14] MEDS: FAMOTIDINE 20 MG TAB PO SCH (09:16)
[2019-07-14] MEDS: CLOPIDOGREL 75 MG TAB PO SCH (09:16)
[2019-07-14] MEDS: FUROSEMIDE 20 MG TAB PO SCH (09:16)
[2019-07-14] MEDS: LISINOPRIL 20 MG TAB PO SCH (09:16)
[2019-07-14] MEDS: LINEZOLID 600MG TABLET (ZYVOX) PO SCH ×2 (09:16→20:10)
[2019-07-14] MEDS: PRAVASTATIN 20 MG TAB PO SCH (09:16)
[2019-07-14] MEDS: GABAPENTIN 300 MG CAP PO SCH ×2 (09:17→20:10)
[2019-07-14] MEDS: MAGNESIUM CHLORIDE 64 MG TABCR (SLO MAG) PO SCH (09:17)
[2019-07-14] MEDS: TAMSULOSIN 0.4 MG CAP PO SCH (09:17)
[2019-07-14] MEDS: TAVALISSE PO SCH ×2 (09:17→21:00)
[2019-07-14] MEDS: HumaLOG INSULIN (NovoLOG) PER UNIT SC SCH ×4 (09:18→21:00)
[2019-07-14] MEDS: NICOTINE 21MG/24HR 1 EA TRANSDERMAL TD SCH (09:21)
[2019-07-14] MEDS: DICLOFENAC EPOLAMINE 1.3 % PATCH TOP SCH ×2 (09:21→20:14)
[2019-07-14] MEDS ORDERED: levETIRAcetam 250MG TABLET (KEPPRA) PO ONE (10:15)
--- NOTE | 2019-07-14 10:52 | IPN ---
DATE: 07/14/2019 Augie had another episode yesterday, I think were seizures. He was walking when he suddenly "froze" per staff, was staring into space, unresponsive. He then fell on the ground. Afterwards when he became more alert, he was combative and disoriented. Sounds like he was postictal. PHYSICAL EXAMINATION: Vital signs stable. He is alert, conversant. He answers questions today. He has plus edema in the hands and feet. Lungs are clear. Heart: Regular rhythm. IMPRESSION: 1. Suspected seizures. I spoke Dr. Santamaria from neurology. He will see the patient in consultation. Will increase the dose of Keppra. Continue the gabapentin. 2. Edema of the arms and legs. He is responding slowly, but steadily, to furosemide 20 mg daily (takes 20 mg three times a day at home, so at this point will need about 20 mg daily here with good response). 3. Diabetes under good control on current regimen. 4. Methicillin Staphylococcus aureus bacteremia with septic shoulder. Continue rifampin and Zyvox. At this point, he could go to short term rehabilitation if they find a bed for him
[2019-07-14] MEDS: LORazepam 0.5 MG TAB PO SCH (14:16)
[2019-07-14] MEDS: NORCO, ANEXSIA 5/325MG TABLET (HYDROcodone/ACETAMINOPHEN) PO PRN ×2 (14:52→21:12)
[2019-07-14] MEDS: LATANOPROST 0.005% OPHTH SOLN 2.5 ML OU SCH (20:11)
[2019-07-15 06:00] VITALS: BP 139/75
[2019-07-15 06:09] LABS: HEMATOCRIT 31.8 % (42.0-52.0); MEAN CORPUSCULAR HEMOGLOBIN 29.6 pg (27.0-33.0); MEAN CORPUSCULAR HGB CONC 31.4 g/dl (32.0-36.5); MEAN CORPUSCULAR VOLUME 94.1 fl (80.0-96.0); PLATELET COUNT, AUTOMATED 145 10^3/uL (150-450); RED BLOOD COUNT 3.38 10^6/uL (4.30-6.10); WHITE BLOOD COUNT 3.6 10^3/uL (4.0-10.0)
[2019-07-15 06:29] LABS: CALCIUM LEVEL 8.9 MG/DL (8.8-10.2); CREATININE FOR GFR 1.68 MG/DL (0.70-1.30); GLOMERULAR FILTRATION RATE 42.2 (>42); POTASSIUM SERUM 3.9 MEQ/L (3.5-5.1)
[2019-07-15] MEDS: NORCO, ANEXSIA 5/325MG TABLET (HYDROcodone/ACETAMINOPHEN) PO PRN (06:50)
[2019-07-15] MEDS: POTASSIUM CHLORIDE 10 MEQ SR TABLET PO SCH ×3 (09:00→21:20)
[2019-07-15] MEDS: GABAPENTIN 300 MG CAP PO SCH ×3 (09:00→21:20)
[2019-07-15] MEDS: levETIRAcetam 250MG TABLET (KEPPRA) PO SCH ×3 (09:00→21:20)
[2019-07-15] MEDS: TAVALISSE PO SCH ×3 (09:00→21:20)
[2019-07-15] MEDS: PANTOPRAZOLE 40MG TAB (PROTONIX) PO SCH ×3 (09:00→21:20)
[2019-07-15] MEDS: NICOTINE 21MG/24HR 1 EA TRANSDERMAL TD SCH (09:17)
[2019-07-15] MEDS: DICLOFENAC EPOLAMINE 1.3 % PATCH TOP SCH ×2 (09:19→21:21)
[2019-07-15] MEDS: FINASTERIDE 5 MG TAB PO SCH (09:21)
[2019-07-15] MEDS: TAMSULOSIN 0.4 MG CAP PO SCH (09:21)
[2019-07-15] MEDS: LISINOPRIL 20 MG TAB PO SCH (09:22)
[2019-07-15] MEDS: BISOPROLOL FUMARATE 10 MG TAB PO SCH (09:23)
[2019-07-15] MEDS: FAMOTIDINE 20 MG TAB PO SCH (09:23)
[2019-07-15] MEDS: FUROSEMIDE 20 MG TAB PO SCH (09:23)
[2019-07-15] MEDS: PRAVASTATIN 20 MG TAB PO SCH (09:24)
[2019-07-15] MEDS: CLOPIDOGREL 75 MG TAB PO SCH (09:24)
[2019-07-15] MEDS: LINEZOLID 600MG TABLET (ZYVOX) PO SCH ×2 (09:24→21:20)
[2019-07-15] MEDS: HumaLOG INSULIN (NovoLOG) PER UNIT SC SCH ×5 (09:25→22:56)
[2019-07-15] MEDS: MAGNESIUM CHLORIDE 64 MG TABCR (SLO MAG) PO SCH (09:26)
[2019-07-15] MEDS: IPRATROPIUM 0.5MG/ALBUTEROL 2.5MG INH SOL UD 3ML (DUONEB)(J7620) NEB SCH ×3 (09:39→20:00)
--- NOTE | 2019-07-15 12:55 | IPNPDOC ---
Subjective Date Seen The patient was seen on 07/15/19. Subjective Chief Complaint/HPI irritable arguing with his , says he is going home. General: Reports: ROS Unobtainable (ROS not meaningful due to patient's angry irritable responses) Objective Physical Examination General Exam: Positive: Alert, No Acute Distress, Other (Clear and coherent today - able to give history. Cooperative without agitation) Neck Exam: Negative: Supple, JVD Chest Exam: Positive: Clear to auscultation; Negative: Normal air movement Heart Exam: Positive: Rate Normal, Normal S1, Normal S2 Abdomen Exam: Positive: Soft; Negative: Normal bowel sounds, Tenderness Male Exam: Negative: Lesions, Edema, Erythema Extremity Exam: Positive: Edema (minimal) Skin Exam: Positive: Nl turgor and temperature; Negative: Rash Psych Exam: Positive: Other (irritable memory impairment. denies yesterday's fall event.); Negative: Mental status NL Assessment /Plan Problems (1) Unresponsive episode Status: Acute Problem Text: 07/15: had episode of staring followed by fall yesterday. patient denies any event. 07/10 - Wkup overall suggests episodes are related to septic embolic encephalopathy (No epileptiform activity on EEG, but abnormalities consistent with encephalopathy) There is some thought this may be behavioral 07/08/19 1530 recurrent episode of unresponsive lasting ~5 minutes, normal tonicity s focality c stable VS ("felt like everything went dark")-similar to previous episodes 2 septic embolic encephalopathy caution for hemorrhagic conversion given since 07/04 on clopid (2) Septic embolism Status: Acute Response to Treatment: Stable Problem Text: 07/10 - suspicious of IE c septic emboli/ caution for hemorrhagic conversion given since 07/[address] brain 07/08 - Stable appearing chronic changes, as described above. 06/27 similar MS change, but deferred repeat MRI 06/23 MS change c new B septic emboli by MRI DOAC held given no evidence of benefit prevent emboli in IE AND increased risk of hemorrhagic conversion (3) MSSA (methicillin susceptible Staphylococcus aureus) Status: Acute Problem Text: 07/15 continues oral zyvox/rifampin combination. - Lost IV access (Patient continues to pull out IVs) - Case discussed with Dr. Jarrett yesterday - switched to Zyvox and Rifampin with Rocephin IV prn if refuses po abx or is too agitated 07/08 changed to cetriaxone 2 IV QD given unable to obtain peripheral line/px has removed previous PICC within 10 minutes of placement and cannot reliably take po 07/04: continuing Cefazolin per ID recommendation 07/03: continuing cefazolin 2 gm q8rs, per Dr. Jarrett, 08/01 will be completion date. D1 cefazolin 2 q8H (given ho AVR) (prior 4D vanco)-emperic rx for MSSA IE/ R septic shoulder 06/29 L PICC placed per 's request-obvious HIGH risk of patient pulling out and/or recurrent DVT 06/30 AF, WBC 4.4, CRP 4.4, (5.2) (06/24/19 14) 06/21 sp R PICC, 06/25/19 removed as per cephalic v thrombus tc LEVON if condition stabilizes 06/24 BCX2 NG 06/18 BCX 12/23 MSSA-06/21 + ceftriaxone 2 gm QD 06/24/19 TTE: 1. Borderline concentric left ventricle hypertrophy. Normal regional LV wall motion and wall thickening. Normal LV systolic function. LVEF 70% by visual estimate. Grade 1 LV diastolic dysfunction (impaired relaxation filling pattern). 2. Cardiac valves were only moderately well visualized. This was a technically difficult study for assessment of vegetations. The image quality of the study was not adequate to rule out very small vegetations. 3. Moderate mitral annular calcification. Very mild mitral regurgitation. No mitral stenosis. 4. Status post aortic valve replacement with bioprosthesis which appears to be functionally normal. 5. Small pericardial effusion measuring 1.0 cm of the posterior wall of the left (4) Right shoulder pain Status: Acute Problem Text: 07/15: septic joint vs OA. MRI was not confirmatory of septic joint and patient declined aspirate 07/10 - Flector patch 07/05 analgesic seems to be effective but still with pain with shoulder movement. Family/px refusing aspiration for confirmation 06/26/19 MRI R shoulder, highly suspicious for septic arthritis: 1. Severe osteoarthritis of the glenohumeral joint. Bone marrow edema signal in the bony glenoid is likely secondary to osteoarthritis. Osteomyelitis is not excluded. 2. Rotator cuff tendinopathy, as described above. 3. Fluid tracking along the posterior deltoid, subscapularis, supraspinatus and infraspinatus muscles is nonspecific. This may be seen in the setting of trauma, as well as infectious myopathy. Clinical correlation is needed. 4. Glenohumeral joint effusion with synovitis. Septic arthritis is not excluded. Consider joint aspiration. 5. Subscapularis bursitis with synovitis, nonspecific. Septic bursitis is not excluded. (5) Urinary retention Status: Resolved Response to Treatment: Improving Problem Text: 07/15 solis out 07/10 - Cont Flomax/Proscar - Voiding normally with d/c of solis 07/05: d/c solis, trial of voiding to ensue with preference for straight cath prn. 07/04: solis replaced will try again with trial of voiding in a couple of days. 07/03: required straight cath early am. would prefer not to have solis in place, will st cath prn. 07/02 Pt this morning c/o discomfort assoc with cath, will attempt to remove and see how he does. tc TOV remains on tamsul 0.4 QHS 06/18 FC placed 2 retention 06/18 UCX NG (6) Dementia Status: Chronic Problem Text: 07/15 exhibiting this problem today. making it unsafe for his to consider d/c home w/o sitter for him when she is at work. 07/08 - Continues to have sudden episodes of irritability and angry outbursts requiring sitter. thinks Risperdal made him worse and dose not like his to get Haldol. Getting Ativan 0.5 mg at 2 pm daily, but per staff this is not completely controlling his behavioral issues/mood swings. Would consider Zyprexa but wants to increase Ativan to BID 07/05 still not taking in enough po to sustain. intermittent requirement for sedation to quell aggressive behavior is contributing to difficulty with achieving sufficient oral hydration. 07/03: ultimately will likely need NH placement but suspect spouse will want to try to take him home first. case dw extensively who agrees c POA (7) Dyspepsia Status: Acute Problem Text: 07/02 symptoms improved. 06/29 + panto 40 BID, + Mylanta 30 q6H prn, ondan 4 qHprn (8) Thrombosis of right cephalic vein Status: Acute Response to Treatment: Improving Problem Text: no AC as per septic emboli 06/25/19 R PICC dc 06/24/19 RUE US: No sonographic evidence of deep vein thrombosis. 2. Mildly heterogeneous, and nonocclusive thrombus in the distal cephalic vein (done 2 increased R UE tumor/rubor/dolor) (9) Paroxysmal atrial fibrillation Status: Resolved Response to Treatment: Stable Problem Text: 07/03 only post op episode with his heart surgery, no confirmed recurrent episodes otherwise. so deemed not in need of anticoag except for anti- platelet therapy for drug eluting cardiac stents. per Dr. Small office notes-only known occurence was [id number] on AC for it. 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 stable, neuro status gradually improving. continuing to avoid anticoagulation due to unclear risk/benefit associated with treatment in setting of emboli associated with IE. even resumption of his previous clopidogrel therapy is complicated by his ITP which could relapse or escape control at any point. 06/23: due to strong suspicion for septic emboli (mri findings and positive blood culture for S aureus) and absent confirmation of Afib, and concern expressed by Dr. Santamaria for prudence of anticoagulation in the setting of septic emboli; therefore, dced rivarox-last dose 06/23/19 8: continue to show dementia features c/w multi-infarct dementia. 06/14 changed LMWH to rivarox 06/13 presumptive AF, but none documented since admission on tele; long dw who will attempt to arrange 12/06 coverage for px to dc home 06/13 given embolic CVA; restart tele, + therapeutic LMWH 06/13/19 MRA brain/carotids s significant stenosis 06/13/19 MRI brain: Numerous small foci of restricted diffusion with associated ADC dropout throughout the bilateral cerebral hemispheres, measuring up to 11 x 8 mm in the right occipital lobe. (not appreciated by 06/11 CT head) 06/10 TTE: 1. Normal appearing and well seated aortic valve bioprosthesis. No aortic stenosis or regurgitation. 2. Mild concentric left ventricle hypertrophy. Normal regional left ventricular (LV) wall motion and wall thickening. Normal LV systolic function. Left ventricular ejection fraction (LVEF) 70% by visual estimate. Grade 1 LV diastolic dysfunction. Normal left atrial size and left atrial volume index. 3. Moderate mitral annular calcification. No mitral regurgitation or stenosis. 4. Normal right ventricle size and systolic function. (12) Diabetes mellitus Status: Chronic Problem Text: HD glar 40, 05/2019 A1C 9.4 BG mid 100s c solely SSLI (13) Ataxia Status: Chronic Problem Text: 06/26 refusing PT 06/14 now safe per PT to dc home c services was NOT ARU candidate 2 (14) Thrombocytopenia Status: Acute Response to Treatment: Stable, Improving Problem Text: 07/04 platelet count remains controlled with Tavalisse. 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 Lamb 06/29 178K 06/16 stable at 127K (15) Hx of aortic valve replacement Status: Chronic Problem Text: TTE as per MSSA sepsis (16) CAD S/P percutaneous coronary angioplasty Status: Chronic Response to Treatment: Stable Problem Text: had been of his plavix due to ITP, now that his platelet count has resolved, he should resume plavix with monitoring of plavix. Plan/VTE VTE Prophylaxis Ordered?: Yes Plan IVF: Continue Medications: Other Med: (d/c haldol. call prn. start trial with low dose benzo to see if behavior can be helped.) Advance Directives: DNR VS, I&O, 24H, Fishbone Vital Signs/I&O Vital Signs Date Time Temp Pulse Resp B/P (MAP) Pulse Ox O2 Delivery O2 Flow Rate FiO2 07/15/19 09:23 94 139/75 07/15/19 07:20 16 07/15/19 06:00 97.8 97 I&O- Last 24 Hours up to 6 AM 07/15/19 06:00 Intake Total 710 ml Output Total 300 ml Balance 410 ml Laboratory Data 24H LABS Laboratory Tests 2 07/14/19 16:47: Bedside Glucose (Misc Panel) 234H 07/15/19 05:25: Nucleated Red Blood Cells % (auto) 0.0, Anion Gap 7L, Glomerular Filtration Rate 42.2, Blood Urea Nitrogen 11, Creatinine 1.68H, Sodium Level 142, Potassium Level 3.9, Chloride Level 107, Carbon Dioxide Level 28, Calcium Level 8.9 07/15/19 11:51: Bedside Glucose (Misc Panel) 166H CBC/BMP Laboratory Tests 07/15/19 05:25 Red Blood Count 3.38 L, Mean Corpuscular Volume 94.1, Mean Corpuscular Hemoglobin 29.6, Mean Corpuscular Hemoglobin Concent 31.4 L, Red Cell Distribution Width 15.1 H, Calcium Level 8.9 Microbiology Microbiology 07/09/19 Blood Culture - Final, Complete NO GROWTH AFTER 5 DAYS Blaine Byrd MD Jul 15, 2019 12:55
[2019-07-15] MEDS: LORazepam 0.5 MG TAB PO SCH ×2 (13:32→13:35)
[2019-07-15 14:00] VITALS: BP 132/74
--- NOTE | 2019-07-15 16:41 | ECGEPIP ---
[facility] Test Date: 2019-07-15 Pat Name: OMID JACKSON Department: Room: [place] [address] Gender: Male Back Tufter: PEPPER : 1940 Requested By: Blaine Drew Order Number: [id number] Reading MD: Ronit Tracy Measurements Intervals [place] Rate: 83 P: 34 NV: 172 QRS: -19 QRSD: 93 T: 51 QT: 387 QTc: 457 Interpretive Statements SINUS RHYTHM WITH OCCASIONAL VENTRICULAR PREMATURE COMPLEXES PVCS NEW, PAC ABSENT PRWP RIGHT VENTRIC CONDUCTION DELAY Left atrial enlargement PREVIOUSLY SEEN C/W06/27/19 Electronically Signed on 07-15-2019 16:41:19 EDT by Ronit Tracy
[2019-07-15] MEDS: ACETAMINOPHEN TAB 650MG DOSE (2X325MG) PO PRN (16:46)
[2019-07-15] MEDS: LATANOPROST 0.005% OPHTH SOLN 2.5 ML OU SCH (21:21)
[2019-07-16] MEDS: NORCO, ANEXSIA 5/325MG TABLET (HYDROcodone/ACETAMINOPHEN) PO PRN ×2 (04:33→20:38)
[2019-07-16 06:00] VITALS: BP 130/71
[2019-07-16] MEDS: IPRATROPIUM 0.5MG/ALBUTEROL 2.5MG INH SOL UD 3ML (DUONEB)(J7620) NEB SCH ×3 (08:00→20:00)
[2019-07-16] MEDS: HumaLOG INSULIN (NovoLOG) PER UNIT SC SCH ×4 (08:41→20:26)
[2019-07-16] MEDS: DICLOFENAC EPOLAMINE 1.3 % PATCH TOP SCH ×2 (08:41→20:24)
[2019-07-16] MEDS: MAGNESIUM CHLORIDE 64 MG TABCR (SLO MAG) PO SCH (08:42)
[2019-07-16] MEDS: TAVALISSE PO SCH ×2 (08:42→20:25)
[2019-07-16] MEDS: NICOTINE 21MG/24HR 1 EA TRANSDERMAL TD SCH (08:42)
[2019-07-16] MEDS: TAMSULOSIN 0.4 MG CAP PO SCH (08:43)
[2019-07-16] MEDS: FINASTERIDE 5 MG TAB PO SCH (08:43)
[2019-07-16] MEDS: levETIRAcetam 250MG TABLET (KEPPRA) PO SCH ×2 (08:43→20:26)
[2019-07-16] MEDS: FUROSEMIDE 20 MG TAB PO SCH (08:44)
[2019-07-16] MEDS: LISINOPRIL 20 MG TAB PO SCH (08:44)
[2019-07-16] MEDS: PANTOPRAZOLE 40MG TAB (PROTONIX) PO SCH ×2 (08:44→20:25)
[2019-07-16] MEDS: LINEZOLID 600MG TABLET (ZYVOX) PO SCH ×2 (08:44→20:25)
[2019-07-16] MEDS: CLOPIDOGREL 75 MG TAB PO SCH (08:44)
[2019-07-16] MEDS: GABAPENTIN 300 MG CAP PO SCH ×2 (08:44→20:26)
[2019-07-16] MEDS: FAMOTIDINE 20 MG TAB PO SCH (08:44)
[2019-07-16] MEDS: PRAVASTATIN 20 MG TAB PO SCH (08:44)
[2019-07-16] MEDS: POTASSIUM CHLORIDE 10 MEQ SR TABLET PO SCH ×2 (08:45→20:25)
[2019-07-16] MEDS: BISOPROLOL FUMARATE 10 MG TAB PO SCH (08:46)
[2019-07-16 14:00] VITALS: BP 120/68
--- NOTE | 2019-07-16 14:41 | IPN ---
DATE: 07/16/2019 I met with Augie, and daughter twice today. They would like to try Rozerem to help him sleep at night. They understand this medication could potentially cause increased agitation and behavioral disturbance and they are willing to accept that risk.
[2019-07-16] MEDS: LORazepam 0.5 MG TAB PO SCH (15:29)
[2019-07-16] MEDS: RAMELTEON 8 MG TAB (ROZEREM) PO SCH (20:25)
[2019-07-16] MEDS: LATANOPROST 0.005% OPHTH SOLN 2.5 ML OU SCH (20:26)
[2019-07-17] MEDS ORDERED: ACETAMINOPHEN TAB 650MG DOSE (2X325MG) PO ONE (01:45)
[2019-07-17] MEDS: NORCO, ANEXSIA 5/325MG TABLET (HYDROcodone/ACETAMINOPHEN) PO PRN (02:48)
[2019-07-17 06:00] VITALS: BP 116/56
[2019-07-17] MEDS: IPRATROPIUM 0.5MG/ALBUTEROL 2.5MG INH SOL UD 3ML (DUONEB)(J7620) NEB SCH ×3 (07:36→20:00)
[2019-07-17] MEDS: BISOPROLOL FUMARATE 10 MG TAB PO SCH (09:00)
[2019-07-17] MEDS: NICOTINE 21MG/24HR 1 EA TRANSDERMAL TD SCH (09:06)
[2019-07-17] MEDS: CLOPIDOGREL 75 MG TAB PO SCH (09:07)
[2019-07-17] MEDS: ACETAMINOPHEN TAB 650MG DOSE (2X325MG) PO PRN (09:08)
[2019-07-17] MEDS: FINASTERIDE 5 MG TAB PO SCH (09:08)
[2019-07-17] MEDS: PANTOPRAZOLE 40MG TAB (PROTONIX) PO SCH ×2 (09:08→21:58)
[2019-07-17] MEDS: PRAVASTATIN 20 MG TAB PO SCH (09:08)
[2019-07-17] MEDS: levETIRAcetam 250MG TABLET (KEPPRA) PO SCH ×2 (09:08→21:59)
[2019-07-17] MEDS: LISINOPRIL 20 MG TAB PO SCH (09:09)
[2019-07-17] MEDS: POTASSIUM CHLORIDE 10 MEQ SR TABLET PO SCH ×2 (09:09→21:58)
[2019-07-17] MEDS: FAMOTIDINE 20 MG TAB PO SCH (09:09)
[2019-07-17] MEDS: FUROSEMIDE 20 MG TAB PO SCH (09:09)
[2019-07-17] MEDS: GABAPENTIN 300 MG CAP PO SCH ×2 (09:09→21:58)
[2019-07-17] MEDS: TAMSULOSIN 0.4 MG CAP PO SCH (09:09)
[2019-07-17] MEDS: HumaLOG INSULIN (NovoLOG) PER UNIT SC SCH ×4 (09:11→21:00)
[2019-07-17] MEDS: LINEZOLID 600MG TABLET (ZYVOX) PO SCH ×2 (09:16→21:57)
[2019-07-17] MEDS: MAGNESIUM CHLORIDE 64 MG TABCR (SLO MAG) PO SCH (09:17)
[2019-07-17] MEDS: DICLOFENAC EPOLAMINE 1.3 % PATCH TOP SCH ×2 (09:17→21:59)
[2019-07-17] MEDS: TAVALISSE PO SCH ×2 (09:20→21:59)
[2019-07-17] MEDS: LORazepam 0.5 MG TAB PO SCH (15:14)
[2019-07-17] MEDS: LATANOPROST 0.005% OPHTH SOLN 2.5 ML OU SCH (21:00)
[2019-07-17] MEDS: RAMELTEON 8 MG TAB (ROZEREM) PO SCH (21:59)
[2019-07-18] MEDS: NORCO, ANEXSIA 5/325MG TABLET (HYDROcodone/ACETAMINOPHEN) PO PRN ×2 (02:05→21:41)
[2019-07-18 06:00] VITALS: BP 148/66
[2019-07-18] MEDS: HumaLOG INSULIN (NovoLOG) PER UNIT SC SCH ×5 (07:30→20:36)
[2019-07-18] MEDS: IPRATROPIUM 0.5MG/ALBUTEROL 2.5MG INH SOL UD 3ML (DUONEB)(J7620) NEB SCH ×3 (07:43→20:00)
[2019-07-18] MEDS: LINEZOLID 600MG TABLET (ZYVOX) PO SCH ×2 (07:46→21:09)
[2019-07-18] MEDS: MAGNESIUM CHLORIDE 64 MG TABCR (SLO MAG) PO SCH (07:46)
[2019-07-18] MEDS: FAMOTIDINE 20 MG TAB PO SCH (07:47)
[2019-07-18] MEDS: LISINOPRIL 20 MG TAB PO SCH (07:47)
[2019-07-18] MEDS: PRAVASTATIN 20 MG TAB PO SCH (07:47)
[2019-07-18] MEDS: PANTOPRAZOLE 40MG TAB (PROTONIX) PO SCH ×2 (07:47→21:10)
[2019-07-18] MEDS: TAVALISSE PO SCH ×2 (07:47→21:32)
[2019-07-18] MEDS: levETIRAcetam 250MG TABLET (KEPPRA) PO SCH ×2 (07:47→21:10)
[2019-07-18] MEDS: GABAPENTIN 300 MG CAP PO SCH ×2 (07:47→21:09)
[2019-07-18] MEDS: BISOPROLOL FUMARATE 10 MG TAB PO SCH (07:47)
[2019-07-18] MEDS: FINASTERIDE 5 MG TAB PO SCH (07:48)
[2019-07-18] MEDS: FUROSEMIDE 20 MG TAB PO SCH (07:48)
[2019-07-18] MEDS: TAMSULOSIN 0.4 MG CAP PO SCH (07:48)
[2019-07-18] MEDS: POTASSIUM CHLORIDE 10 MEQ SR TABLET PO SCH ×2 (07:48→21:10)
[2019-07-18] MEDS: CLOPIDOGREL 75 MG TAB PO SCH (07:48)
[2019-07-18] MEDS: NICOTINE 21MG/24HR 1 EA TRANSDERMAL TD SCH ×2 (07:49→08:00)
[2019-07-18] MEDS: DICLOFENAC EPOLAMINE 1.3 % PATCH TOP SCH ×3 (07:50→21:11)
--- NOTE | 2019-07-18 12:49 | IPN ---
DATE: 07/18/2019 A family meeting occurred today. I was not able to attend this as I was still seeing patient's in the office. Apparently the plan is that Sukhi will go home on , July 22. He has had improvement in his behavior and cooperation since we increased the dose of Keppra and he has not had any further episodes of unresponsiveness that I think was breakthrough seizure activity. I am skeptical that his is going to be able to manage him at home, but that is the plan they have put together and we hope that he is able to be managed there. I sent prescriptions today for Zyvox 600 mg twice a day for 14 days and rifampin 300 mg two capsules twice a day (600 mg twice a day) for 14 days to complete a course of oral antibiotic therapy through 08/01/2019 per recommendation from infectious disease. These prescriptions went to [facility] in [place] and then tomorrow patient and family services (PFS) can check and see whether he has coverage for these ([phone]).
[2019-07-18] MEDS: LORazepam 0.5 MG TAB PO SCH (14:09)
[2019-07-18] MEDS: RAMELTEON 8 MG TAB (ROZEREM) PO SCH (21:10)
[2019-07-18] MEDS: LATANOPROST 0.005% OPHTH SOLN 2.5 ML OU SCH (21:14)
[2019-07-19] MEDS: NORCO, ANEXSIA 5/325MG TABLET (HYDROcodone/ACETAMINOPHEN) PO PRN ×2 (03:43→17:58)
[2019-07-19 06:00] VITALS: BP 138/54
[2019-07-19] MEDS: IPRATROPIUM 0.5MG/ALBUTEROL 2.5MG INH SOL UD 3ML (DUONEB)(J7620) NEB SCH ×3 (08:00→20:00)
[2019-07-19] MEDS: DICLOFENAC EPOLAMINE 1.3 % PATCH TOP SCH ×2 (08:10→21:35)
[2019-07-19] MEDS: MAGNESIUM CHLORIDE 64 MG TABCR (SLO MAG) PO SCH (08:11)
[2019-07-19] MEDS: TAVALISSE PO SCH ×2 (08:11→21:35)
[2019-07-19] MEDS: GABAPENTIN 300 MG CAP PO SCH ×2 (08:11→21:36)
[2019-07-19] MEDS: levETIRAcetam 250MG TABLET (KEPPRA) PO SCH ×2 (08:12→21:36)
[2019-07-19] MEDS: TAMSULOSIN 0.4 MG CAP PO SCH (08:12)
[2019-07-19] MEDS: PANTOPRAZOLE 40MG TAB (PROTONIX) PO SCH ×2 (08:13→21:36)
[2019-07-19] MEDS: CLOPIDOGREL 75 MG TAB PO SCH (08:13)
[2019-07-19] MEDS: LINEZOLID 600MG TABLET (ZYVOX) PO SCH ×2 (08:13→21:36)
[2019-07-19] MEDS: PRAVASTATIN 20 MG TAB PO SCH (08:13)
[2019-07-19] MEDS: FINASTERIDE 5 MG TAB PO SCH (08:13)
[2019-07-19] MEDS: FUROSEMIDE 20 MG TAB PO SCH (08:14)
[2019-07-19] MEDS: FAMOTIDINE 20 MG TAB PO SCH (08:14)
[2019-07-19] MEDS: ACETAMINOPHEN TAB 650MG DOSE (2X325MG) PO PRN (08:15)
[2019-07-19] MEDS: NICOTINE 21MG/24HR 1 EA TRANSDERMAL TD SCH (08:15)
[2019-07-19] MEDS: POTASSIUM CHLORIDE 10 MEQ SR TABLET PO SCH ×2 (08:15→21:36)
[2019-07-19] MEDS: LISINOPRIL 20 MG TAB PO SCH (08:16)
[2019-07-19] MEDS: HumaLOG INSULIN (NovoLOG) PER UNIT SC SCH ×4 (08:16→20:59)
[2019-07-19] MEDS: BISOPROLOL FUMARATE 10 MG TAB PO SCH (08:20)
[2019-07-19] MEDS: LORazepam 0.5 MG TAB PO SCH (13:51)
[2019-07-19] MEDS: LATANOPROST 0.005% OPHTH SOLN 2.5 ML OU SCH (21:35)
[2019-07-19] MEDS: RAMELTEON 8 MG TAB (ROZEREM) PO SCH (21:36)
[2019-07-20 06:00] VITALS: BP 122/73
[2019-07-20] MEDS: IPRATROPIUM 0.5MG/ALBUTEROL 2.5MG INH SOL UD 3ML (DUONEB)(J7620) NEB SCH ×3 (08:00→19:59)
[2019-07-20] MEDS: LINEZOLID 600MG TABLET (ZYVOX) PO SCH ×2 (08:12→21:06)
[2019-07-20] MEDS: PANTOPRAZOLE 40MG TAB (PROTONIX) PO SCH ×2 (08:12→21:06)
[2019-07-20] MEDS: POTASSIUM CHLORIDE 10 MEQ SR TABLET PO SCH ×2 (08:13→21:06)
[2019-07-20] MEDS: CLOPIDOGREL 75 MG TAB PO SCH (08:13)
[2019-07-20] MEDS: PRAVASTATIN 20 MG TAB PO SCH (08:13)
[2019-07-20] MEDS: TAMSULOSIN 0.4 MG CAP PO SCH (08:13)
[2019-07-20] MEDS: FUROSEMIDE 20 MG TAB PO SCH (08:13)
[2019-07-20] MEDS: FAMOTIDINE 20 MG TAB PO SCH (08:14)
[2019-07-20] MEDS: GABAPENTIN 300 MG CAP PO SCH ×2 (08:14→21:06)
[2019-07-20] MEDS: LISINOPRIL 20 MG TAB PO SCH (08:14)
[2019-07-20] MEDS: FINASTERIDE 5 MG TAB PO SCH (08:14)
[2019-07-20] MEDS: TAVALISSE PO SCH ×2 (08:15→21:07)
[2019-07-20] MEDS: NORCO, ANEXSIA 5/325MG TABLET (HYDROcodone/ACETAMINOPHEN) PO PRN ×2 (08:15→17:38)
[2019-07-20] MEDS: levETIRAcetam 250MG TABLET (KEPPRA) PO SCH ×2 (08:15→21:06)
[2019-07-20] MEDS: MAGNESIUM CHLORIDE 64 MG TABCR (SLO MAG) PO SCH (08:16)
[2019-07-20] MEDS: DICLOFENAC EPOLAMINE 1.3 % PATCH TOP SCH ×2 (08:16→21:07)
[2019-07-20] MEDS: NICOTINE 21MG/24HR 1 EA TRANSDERMAL TD SCH (08:17)
[2019-07-20] MEDS: BISOPROLOL FUMARATE 10 MG TAB PO SCH (08:17)
[2019-07-20] MEDS: HumaLOG INSULIN (NovoLOG) PER UNIT SC SCH ×4 (08:17→20:56)
[2019-07-20] MEDS: ACETAMINOPHEN TAB 650MG DOSE (2X325MG) PO PRN (11:49)
[2019-07-20] MEDS: LORazepam 0.5 MG TAB PO SCH (13:04)
[2019-07-20] MEDS: RAMELTEON 8 MG TAB (ROZEREM) PO SCH (21:06)
[2019-07-20] MEDS: LATANOPROST 0.005% OPHTH SOLN 2.5 ML OU SCH (21:11)
[2019-07-21 06:00] VITALS: BP 130/75
[2019-07-21] MEDS: BISOPROLOL FUMARATE 10 MG TAB PO SCH (07:49)
[2019-07-21] MEDS: IPRATROPIUM 0.5MG/ALBUTEROL 2.5MG INH SOL UD 3ML (DUONEB)(J7620) NEB SCH ×3 (08:00→20:00)
[2019-07-21] MEDS: MAGNESIUM CHLORIDE 64 MG TABCR (SLO MAG) PO SCH (08:36)
[2019-07-21] MEDS: TAVALISSE PO SCH ×2 (08:36→21:57)
[2019-07-21] MEDS: PANTOPRAZOLE 40MG TAB (PROTONIX) PO SCH ×2 (08:36→20:32)
[2019-07-21] MEDS: GABAPENTIN 300 MG CAP PO SCH ×2 (08:37→20:31)
[2019-07-21] MEDS: CLOPIDOGREL 75 MG TAB PO SCH (08:37)
[2019-07-21] MEDS: LINEZOLID 600MG TABLET (ZYVOX) PO SCH ×2 (08:37→20:32)
[2019-07-21] MEDS: TAMSULOSIN 0.4 MG CAP PO SCH (08:37)
[2019-07-21] MEDS: FINASTERIDE 5 MG TAB PO SCH (08:38)
[2019-07-21] MEDS: LISINOPRIL 20 MG TAB PO SCH (08:38)
[2019-07-21] MEDS: NORCO, ANEXSIA 5/325MG TABLET (HYDROcodone/ACETAMINOPHEN) PO PRN ×2 (08:38→19:02)
[2019-07-21] MEDS: PRAVASTATIN 20 MG TAB PO SCH (08:38)
[2019-07-21] MEDS: FUROSEMIDE 20 MG TAB PO SCH (08:39)
[2019-07-21] MEDS: FAMOTIDINE 20 MG TAB PO SCH (08:39)
[2019-07-21] MEDS: POTASSIUM CHLORIDE 10 MEQ SR TABLET PO SCH ×2 (08:39→20:32)
[2019-07-21] MEDS: levETIRAcetam 250MG TABLET (KEPPRA) PO SCH ×2 (08:40→20:32)
[2019-07-21] MEDS: NICOTINE 21MG/24HR 1 EA TRANSDERMAL TD SCH (08:41)
[2019-07-21] MEDS: DICLOFENAC EPOLAMINE 1.3 % PATCH TOP SCH ×2 (08:41→20:33)
[2019-07-21] MEDS: HumaLOG INSULIN (NovoLOG) PER UNIT SC SCH ×5 (08:41→21:00)
[2019-07-21] MEDS: LORazepam 0.5 MG TAB PO SCH (13:48)
[2019-07-21] MEDS: RAMELTEON 8 MG TAB (ROZEREM) PO SCH (20:31)
[2019-07-21] MEDS: LATANOPROST 0.005% OPHTH SOLN 2.5 ML OU SCH (20:33)
[2019-07-22] MEDS: IPRATROPIUM 0.5MG/ALBUTEROL 2.5MG INH SOL UD 3ML (DUONEB)(J7620) NEB SCH (08:00)
[2019-07-22] MEDS: HumaLOG INSULIN (NovoLOG) PER UNIT SC SCH (08:22)
[2019-07-22] MEDS: LINEZOLID 600MG TABLET (ZYVOX) PO SCH (08:23)
[2019-07-22] MEDS: CLOPIDOGREL 75 MG TAB PO SCH (08:23)
[2019-07-22] MEDS: GABAPENTIN 300 MG CAP PO SCH (08:23)
[2019-07-22] MEDS: levETIRAcetam 250MG TABLET (KEPPRA) PO SCH (08:23)
[2019-07-22] MEDS: FINASTERIDE 5 MG TAB PO SCH (08:23)
[2019-07-22] MEDS: PANTOPRAZOLE 40MG TAB (PROTONIX) PO SCH (08:24)
[2019-07-22] MEDS: FAMOTIDINE 20 MG TAB PO SCH (08:24)
[2019-07-22] MEDS: POTASSIUM CHLORIDE 10 MEQ SR TABLET PO SCH (08:24)
[2019-07-22] MEDS: FUROSEMIDE 20 MG TAB PO SCH (08:24)
[2019-07-22] MEDS: LISINOPRIL 20 MG TAB PO SCH (08:24)
[2019-07-22] MEDS: TAMSULOSIN 0.4 MG CAP PO SCH (08:24)
[2019-07-22 08:25] VITALS: BP 132/75
[2019-07-22] MEDS: PRAVASTATIN 20 MG TAB PO SCH (08:25)
[2019-07-22] MEDS: TAVALISSE PO SCH (08:25)
[2019-07-22] MEDS: MAGNESIUM CHLORIDE 64 MG TABCR (SLO MAG) PO SCH (08:25)
[2019-07-22] MEDS: BISOPROLOL FUMARATE 10 MG TAB PO SCH (08:25)
[2019-07-22] MEDS: DICLOFENAC EPOLAMINE 1.3 % PATCH TOP SCH (08:26)
[2019-07-22] MEDS: NICOTINE 21MG/24HR 1 EA TRANSDERMAL TD SCH (08:26)
[2019-07-22] MEDS ORDERED: CLOP75TA2 PO (09:22)
[2019-07-22] MEDS ORDERED: HYDR-4571 PO (09:22)
[2019-07-22] MEDS ORDERED: BISO10TA13 PO (09:22)
[2019-07-22] MEDS ORDERED: MAGN64TASA PO (09:22)
[2019-07-22] MEDS ORDERED: FAMO20TA PO (09:22)
[2019-07-22] MEDS ORDERED: PRAV1TAB39 PO (09:22)
[2019-07-22] MEDS ORDERED: FLOM0.4C39 PO (09:22)
[2019-07-22] MEDS ORDERED: LINE1TAB6 PO (09:22)
[2019-07-22] MEDS ORDERED: ATIV1TAB10 PO (09:22)
[2019-07-22] MEDS ORDERED: FURO20TA2 PO (09:22)
[2019-07-22] MEDS ORDERED: KEPP250T5 PO (09:22)
[2019-07-22] MEDS ORDERED: RIFA150C PO (09:22)
[2019-07-22] MEDS ORDERED: PANT40TA3 PO (09:22)
[2019-07-22] MEDS ORDERED: KLOR10TA76 PO (09:22)
[2019-07-22] MEDS ORDERED: GABA-843 PO (09:22)
[2019-07-22] MEDS ORDERED: DICL13PA TOP (09:22)
[2019-07-22] MEDS ORDERED: NICO14DI31 TOP (09:22)
[2019-07-22] MEDS ORDERED: FINA5TAB2 PO (09:22)
[2019-07-22] MEDS ORDERED: RAME8TAB2 PO (09:22)
[2019-07-22] MEDS ORDERED: LISI-538 PO (09:22)
--- NOTE | 2019-07-23 11:33 | DSES ---
DATE OF ADMISSION: 06/08/2019 DATE OF DISCHARGE: 07/22/2019 PRIMARY CARE PROVIDER: Blaine Byrd MD ATTENDING PHYSICIAN: Cristi Carroll MD CONSULTANTS: Corinna Robertson MD, neurology Yared Sanchez MD, wound care Swapna Jarrett MD, infectious disease HISTORY OF PRESENT ILLNESS: This is a 79-year-old gentleman who follows with Dr. Blaine Byrd at [facility], who presented to the emergency department (ED) after he had fallen. The patient states he was walking his dog and suddenly fell and passed out. Loss of consciousness indeterminate, as episode was unwitnessed. The patient noted to have orthostasis on presentation to the ED with a supine systolic blood pressure of 153, standing of 124. He was given intravenous (IV) fluids and subsequently admitted to the family medicine service. HOSPITAL COURSE: It was initially thought that the patient was having some difficulty with altered mental status secondary to coming off some steroids, for which he was given due to significant side effect of treatment for his colon cancer with Dr. Ange Lamb. 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 Lamb had recommended to continue his Tavalisse which had contributed to these symptoms. The patient was noted to have significant skin tears, as well as a significant laceration to the elbow. Dr. Sanchez did consult the patient while he was here in the facility. The patient had some significant myopathy, as well as electrolyte disturbance, of which replacement was maintained. On 06/13/2019, the patient is status post neurology evaluation due to altered mental status. MRI of the brain was obtained. The patient was noted to have multiple small foci of acute ischemia bilaterally, distribution favored embolic etiology. Subsequently, a carotid artery MRI was obtained, which showed no significant stenosis. An etiology of the embolic brain injury was unclear at that time. Blood culture did return for the patient, and he was noted to have methicillin-susceptible Staphylococcus aureus (MSSA) on blood cultures. Infectious disease was subsequently consulted. It was recommended that the patient would need a full 6 weeks of cefazolin 2 grams intravenous (IV) every 12 hours. This is secondary to the fact that he had an artificial heart valve. Regarding the MSSA, the patient pulled his IV out significant times, and IV access became incredibly difficult. The patient was given Rocephin intramuscularly until recently when it was changed to rifampin and Zyvox orally, and the patient has been tolerating them well. Please see Dr. Jarrett's consult and subsequent notes for further information. The patient's behaviors continued to wax and wane between aggressive and then seizure-like activities. He was placed on Keppra initially 500 mg by mouth twice a day. This was tapered up and dosing to a full 1000 mg twice a day, and patient's behavior has continued to slowly improve over the last 2 weeks. Regarding the patient's orthostatic blood pressures, the patient's antihypertensives have been changed in order to obtain stabilized blood pressure. He has stabilized that on bisoprolol fumarate 10 mg by mouth daily, along with lisinopril 20 mg by mouth daily. Multiple conversations were held with both the patient and his regarding his behaviors and difficulty with caring for him at home. The continues to want to take him home and is agreeable to home health services, which we have arranged for her. CONSULTATIONS: 1. Dr. Sanchez, wound care. 2. Dr. Jarrett, infectious disease. 3. Dr. Robertson, neurology. IMAGING: The patient has had multiple head CTs secondary to seizure-like activity, as well as mental status changes. Cervical spine CT was obtained on admission due to a fall, which showed no acute traumatic injury. Vascular ultrasound completed of the patient's carotid arteries. Brain MRI/MRA, as well as carotid artery MRI, were completed. Shoulder x-ray was completed secondary to chronic pain. Multiple chest x-rays completed. Shoulder MRI was completed. Impression stated severe osteoarthritis versus rule out osteomyelitis, subscapularis bursitis synovitis, septic bursitis not excluded. The patient and were offered joint aspiration to rule out infectious process, and they declined. The patient did have a peripherally inserted central catheter (PICC) line placed and subsequently developed some edema and swelling. He was noted to have a nonocclusive thrombus in the distal cephalic vein, and that PICC line was removed. Echocardiogram: The patient had multiple echocardiograms completed. No vegetation appreciated. On physical examination today, vital signs are stable. The patient is afebrile. General: The patient's family is at bedside. All of the family are incredibly angry that his discharge was not completed by 9 a.m. the day of discharge. The patient continued to swear and express significant amounts of anger regarding his hospitalization. At no time was he dyspneic or develop any difficulty with his breathing during his outbursts. The patient was noncooperative with examination at time of discharge. ASSESSMENT: 1. Methicillin-susceptible Staphylococcus aureus septicemia. 2. Septic emboli. 3. Right shoulder pain. 4. Dementia. 5. Thrombosis of the right cephalic vein. 6. Paroxysmal atrial fibrillation. 7. Seizure-like activity. 8. Cerebrovascular accident, embolic. 9. Diabetes. 10. Thrombocytopenia. 11. Aortic valve replacement. 12. Coronary artery disease (CAD). PLAN: The patient will be discharged to home. Diet is consistent-carbohydrate. Activity is as tolerated with walker. The patient was recommended to have a bedside commode. The patient and his both refused a prescription for the medical equipment and stated that they would obtain that on their own. The patient is to followup with his primary care provider within the next 5-7 days. He will see Dr. Blaine Byrd. MEDICATIONS: Are as follows: - bisoprolol fumarate 10 mg one by mouth daily - Plavix 75 mg by mouth daily - Flector patch 1.3% every 12 - famotidine 40 mg daily - finasteride 5 mg daily - furosemide 20 mg by mouth daily - gabapentin 300 mg by mouth twice a day - hydrocodone with acetaminophen two tablets by mouth every hours as needed for mild to moderate pain - Keppra 1000 mg by mouth twice a day - linezolid 600 mg by mouth twice a day for 14 days - lisinopril 20 mg by mouth daily - lorazepam 0.5 mg daily at 2 p.m. - magnesium chloride 64 mg by mouth daily - nicotine patch 14 mg topically daily - pantoprazole sodium 40 mg by mouth twice a day - potassium chloride 20 mEq by mouth twice a day - pravastatin 20 mg by mouth daily - ramelteon 8 mg by mouth nightly - rifampin 600 mg by mouth twice a day - tamsulosin 0.8 mg by mouth daily The patient was discharged in stable and satisfactory condition with no further questions at time of discharge. The patient's discharge was also reviewed with his , as well as his children.
[2019-09-03] MEDS ORDERED: [UNRECOGNIZED DRUG - CODE] PO (13:53)
--- NOTE | 2019-09-14 17:49 | REP ---
PICC line insertion under ultrasound guidance. The procedure was performed by DANGELO Staples, under the direct supervision of Dr. Etienne. The risks and benefits of the procedure were explained to the patient and informed consent was obtained both verbally and written. Directly prior to the start of the procedure, a formal timeout was completed in the procedure room. The left basilic vein was localized using ultrasound guidance. The skin was prepped and draped in the sterile fashion. 2 ml 1% lidocaine was used as a local anesthetic. Using ultrasound guidance the left basilic vein was cannulated, upon being cannulated the vein infiltrated. Using ultrasound guidance. The left basilic vein was localized again more proximally and again infiltrated. Due to the blood clot in the patient's right arm the right arm was not evaluated and the procedure was aborted. The patient tolerated the procedure well and there were no immediate complications. Impression: 1. Unsuccessful PICC line insertion. 0.1 minutes of fluoroscopy time was utilized for this procedure. Some fluoroscopic images are performed with last image hold technology. These images require no additional radiation. Reviewed by DANGELO Bajwa 09/12/2019 04:23 P Electronically Signed by Silvio Etienne MD 09/14/2019 05:40 P
== END 2019-07-22 10:21 | disposition home health service (06) | DRG 64 ==
LOC: M ED 20:11 → M ED INP 23:33 → OBSVTOIN 06-09 11:04 → M PCU 06-09 12:41 → M MSPAV 06-13 13:47
PROVIDERS: ADMIT Internal Medicine; ATTEND Family Medicine
PROC: 02HV33Z Insertion of Infusion Device into Superior Vena Cava, Percutaneous Approach (ICD-10-PCS; principal; 2019-06-21 12:30)
PROC: 02HV33Z Insertion of Infusion Device into Superior Vena Cava, Percutaneous Approach (ICD-10-PCS; 2019-06-29)
DX: I63.443 Cerebral infarction due to embolism of bilateral cerebellar arteries (principal); A41.01 Sepsis due to Methicillin susceptible Staphylococcus aureus; I33.0 Acute and subacute infective endocarditis; G93.41 Metabolic encephalopathy; I76 Septic arterial embolism; D69.3 Immune thrombocytopenic purpura; M00.9 Pyogenic arthritis, unspecified; G72.0 Drug-induced myopathy; E27.40 Unspecified adrenocortical insufficiency; F03.91 Unspecified dementia, unspecified severity, with behavioral disturbance; I13.0 Hypertensive heart and chronic kidney disease with heart failure and stage 1 through stage 4 chronic kidney disease, or unspecified chronic kidney disease; I50.32 Chronic diastolic (congestive) heart failure; I82.611 Acute embolism and thrombosis of superficial veins of right upper extremity; E24.2 Drug-induced Cushing's syndrome; N18.3 Chronic kidney disease, stage 3 (moderate); E11.51 Type 2 diabetes mellitus with diabetic peripheral angiopathy without gangrene; I48.0 Paroxysmal atrial fibrillation; R56.9 Unspecified convulsions; E66.01 Morbid (severe) obesity due to excess calories; I95.1 Orthostatic hypotension; I25.10 Atherosclerotic heart disease of native coronary artery without angina pectoris; Z95.1 Presence of aortocoronary bypass graft; Z95.2 Presence of prosthetic heart valve; Z79.899 Other long term (current) drug therapy; R91.8 Other nonspecific abnormal finding of lung field; K21.9 Gastro-esophageal reflux disease without esophagitis; E78.5 Hyperlipidemia, unspecified; Z85.038 Personal history of other malignant neoplasm of large intestine; F17.200 Nicotine dependence, unspecified, uncomplicated; E87.6 Hypokalemia; R27.0 Ataxia, unspecified; Z88.0 Allergy status to penicillin; Z88.8 Allergy status to other drugs, medicaments and biological substances; Z66 Do not resuscitate; H40.9 Unspecified glaucoma; R33.9 Retention of urine, unspecified

== ENCOUNTER → 2019-09-03 | Outpatient (REF) | payer MEDICARE ==
[~2019-09-03] MED LIST changes: +ATIV1TAB10 PO; +CLOP75TA2 PO; +DICL13PA TOP; +FAMO20TA PO; +FINA5TAB2 PO; +FLOM0.4C39 PO; +GLIM1TAB PO; -GLIM1TAB2 PO; +HYDR-4571 PO; +KEPP250T5 PO; +LINE1TAB6 PO; +LISI-538 PO; +NICO14DI31 TOP; +NORC1TAB7 PO; +PERI12LIQ SSP; +POTA1TAB23 PO; +PRAV1TAB39 PO; +RAME8TAB2 PO; +RIFA150C PO
[2019-09-03 15:19] LABS: BLOOD UREA NITROGEN 20 MG/DL (7-18); CALCIUM LEVEL 9.1 MG/DL (8.8-10.2); CARBON DIOXIDE LEVEL 30 MEQ/L (21-32); CHLORIDE LEVEL 104 MEQ/L (98-107); CREATININE FOR GFR 1.18 MG/DL (0.70-1.30); GLOMERULAR FILTRATION RATE > 60.0 (>42); GLUCOSE, FASTING 281 MG/DL (70-100); SODIUM LEVEL 141 MEQ/L (136-145)
== END ==
LOC: M LAB REF 14:15
PROVIDERS: ATTEND Family Medicine
DX: E11.22 Type 2 diabetes mellitus with diabetic chronic kidney disease (principal)

== ENCOUNTER 2019-10-15 19:35 | Inpatient (IN) | payer MEDICARE ==
[~2019-10-15] VITALS: Ht 172.7 cm; Wt 98.8 kg
[~2019-10-15 19:35] MED LIST changes: -GLIM1TAB PO; +GLIM1TAB2 PO
[2019-10-15 20:23] LABS: BASO % 0.3 % (0.0-1.0); EOS % 0.4 % (0.0-3.0); HEMATOCRIT 36.9 % (42.0-52.0); HEMOGLOBIN 11.2 g/dl (13.5-17.5); LYMPH # 1.4 10^3/uL (1.5-5.0); LYMPH % 19.5 % (24.0-44.0); MEAN CORPUSCULAR HEMOGLOBIN 27.4 pg (27.0-33.0); MEAN CORPUSCULAR HGB CONC 30.4 g/dl (32.0-36.5); MEAN CORPUSCULAR VOLUME 90.2 fl (80.0-96.0); MONO # 0.6 10^3/uL (0.0-0.8); MONO % 8.6 % (0.0-5.0); NEUTROPHILS # 5.1 10^3/uL (1.5-8.5); NEUTROPHILS % 70.9 % (36.0-66.0); PLATELET COUNT, AUTOMATED 188 10^3/uL (150-450); RED BLOOD COUNT 4.09 10^6/uL (4.30-6.10); WHITE BLOOD COUNT 7.2 10^3/uL (4.0-10.0)
[2019-10-15 21:01] LABS: ALBUMIN 3.1 GM/DL (3.2-5.2); ALT/SGPT 12 U/L (12-78); BILIRUBIN,DIRECT 0.1 MG/DL (0.0-0.2); BILIRUBIN,TOTAL 0.5 MG/DL (0.2-1.0); BLOOD UREA NITROGEN 24 MG/DL (7-18); CALCIUM LEVEL 9.3 MG/DL (8.8-10.2); CARBON DIOXIDE LEVEL 29 MEQ/L (21-32); CHLORIDE LEVEL 108 MEQ/L (98-107); CK-MB VALUE MASS 8.9 NG/ML (<3.6); CPK CREATINE PHOSPHOKINASE 1074 U/L (39-308); CREATININE FOR GFR 1.24 MG/DL (0.70-1.30); GLOMERULAR FILTRATION RATE 59.9 (>42); GLUCOSE, FASTING 158 MG/DL (70-100); MB/CK RELATIVE INDEX 0.83 (< OR =4); POTASSIUM SERUM 3.8 MEQ/L (3.5-5.1); SODIUM LEVEL 143 MEQ/L (136-145); TOTAL PROTEIN 6.7 GM/DL (6.4-8.2); TROPONIN I < 0.02 NG/ML (< 0.10)
[2019-10-16] MEDS ORDERED: CIPROFLOXACIN 400 MG in IV 1 EA IV ONE ×2
[2019-10-16 00:23] LABS: MAGNESIUM LEVEL 1.7 MG/DL (1.8-2.4)
[2019-10-16] MEDS ORDERED: FLOM0.4C39 PO (00:27)
[2019-10-16] MEDS ORDERED: POTA20EL PO (00:27)
[2019-10-16] MEDS ORDERED: [UNRECOGNIZED DRUG - CODE] PO (00:27)
[2019-10-16] MEDS ORDERED: MAGN64TASA PO (00:27)
[2019-10-16] MEDS ORDERED: LEVE250T5 PO (00:27)
[2019-10-16] MEDS ORDERED: FAMO40TA3 PO (00:27)
[2019-10-16] MEDS ORDERED: ROZE8TAB16 PO (00:27)
[2019-10-16] MEDS ORDERED: PLAV1TAB2 PO (00:27)
[2019-10-16] MEDS ORDERED: HYDR-3713 PO (00:27)
[2019-10-16] MEDS ORDERED: BISO10TA10 PO (00:27)
[2019-10-16] MEDS ORDERED: FURO20TA2 PO (00:27)
[2019-10-16] MEDS ORDERED: LANTINJ4 SC (00:27)
[2019-10-16] MEDS ORDERED: GABA-843 PO (00:27)
[2019-10-16] MEDS ORDERED: PRAV20TA2 PO (00:27)
[2019-10-16] MEDS ORDERED: PANT40TA3 PO (00:27)
[2019-10-16 00:40] VITALS: BP 125/65
[2019-10-16] MEDS: NS 1,000 ML IV SCH ×2 (01:11→13:43)
[2019-10-16] MEDS: HumaLOG INSULIN (NovoLOG) PER UNIT SC SCH ×5 (02:16→21:00)
[2019-10-16] MEDS: ACETAMINOPHEN TAB 650MG DOSE (2X325MG) PO PRN ×2 (02:17→15:28)
[2019-10-16] MEDS: levETIRAcetam 250MG TABLET (KEPPRA) PO SCH ×3 (02:17→21:25)
--- NOTE | 2019-10-16 03:09 | HPEPDOC ---
General Date of Admission Oct 15, 2019 at 19:36 Date of Service: Oct 15, 2019 Primary Care Physician: Blaine Byrd MD Attending Physician: VICTORINO BERNAL DO Chief Complaint The patient is a 79-year-old male admitted with a reason for visit of Manisha, Uti. History of Present Illness 79-year-old male with extensive PMH as mentioned below is brought in by his for increased lethargy since yesterday after taking his first dose of Xanax. 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 Per patient's , they've been attempting to find a regimen to control this agitation, but unsuccessful on 3 weeks of Donepezil & Memantins, thus was recently switched over to Xanax instead. She gave him his first dose of Xanax 1mg last night. says "it knocked him out, but he's just so sleepy ever since." At baseline, he is able to ambulate with minimal assistance, and now requires 2-person full assist ever since last night. She denies the patient having any symptoms prior to this episode. No recent fever, chills, other changes in meds, recent illnesses, recent travel, any chest pain or shortness of breath. In the ER, he was noted to have a positive UA with urinary retention. Castro was placed at that time, with 900cc clear output. On exam, he continues to be somnolent, but awakens to sternal rub and name with appropriate interaction. He will be admitted for further workup and monitoring. Home Medications Scheduled Bisoprolol Fumarate (Bisoprolol Fumarate) 10 Mg Tablet, 10 MG PO DAILY, (Reported) Clopidogrel Bisulfate (Plavix) 75 Mg Tablet, 75 MG PO DAILY, (Reported) Famotidine (Famotidine) 40 Mg Tablet, 40 MG PO DAILY, (Reported) Fostamatinib Disodium (Tavalisse) 150 Mg Tablet, 150 MG PO BID, (Reported) Furosemide (Furosemide) 20 Mg Tablet, 20 MG PO DAILY, (Reported) Gabapentin (Gabapentin) 300 Mg Capsule, 300 MG PO TID, (Reported) Insulin Glargine,Hum.rec.anlog (Lantus Solostar) 100 Unit/1 Ml Insuln.pen, 22 UNITS SC DAILY, (Reported) Levetiracetam (Levetiracetam) 250 Mg Tablet, 500 MG PO BID, (Reported) Magnesium Chloride (Mag64) 64 Mg Tablet.dr, 64 MG PO DAILY, (Reported) Pantoprazole Sodium (Pantoprazole Sodium) 40 Mg Tablet.dr, 40 MG PO DAILY, (Reported) Potassium Chloride (Potassium Chloride) 20 Meq/15 Ml Liquid, 15 ML PO DAILY, (Reported) PT DID NOT OPERATOR COMMAND SUPPORT SYSTEMS THEIR PRESCRIPTION Pravastatin Sodium (Pravastatin Sodium) 20 Mg Tablet, 20 MG PO DAILY, (Reported) Tamsulosin HCl (Flomax) 0.4 Mg Capsule, 0.4 MG PO DAILY, (Reported) once daily 1/2 hour following the same meal each day Scheduled PRN Hydrocodone/Acetaminophen (Hydrocodone-Acetamin 5-325 mg) 1 Each Tablet, 2 TAB PO Q6H PRN for PAIN, (Reported) Ramelteon (Rozerem) 8 Mg Tablet, 8 MG PO QHS PRN for SLEEP, (Reported) Allergies Coded Allergies: procaine (Verified Allergy, Severe, difficulty breathing, 05/20/19) Penicillins (Verified Allergy, Intermediate, swelling, 02/13/19) Past Medical History Medical History IDDM 2 BPH Idiopathic Thrombocytopenic Purpura History of GI bleed Insomnia/anxiety Hypertension with hypertensive heart disease CHF Aortic stenosis CAD with stent, HLD 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 One brother lung cancer, other Brother colon cancer Social History Active smoker: 1.5 PPD for 60+ years No alcohol or illicit substances Lives at home with A-FIB/CHADSVASC A-FIB History Current/History of A-Fib/PAF?: No Current PO Anticoag Therapy: No Review of Systems Other systems Limited due to pt somnolence. Per , all ROS negative: Constitutional: Denies fever, chills, night sweats HEENT: Denies headache, dysphagia Skin: Denies any rashes or lesions Pulmonary: Denies dyspnea, cough, wheezing Cardiac: Denies chest pain, palpitations, orthopnea, PND, lightheadedness GI: Denies nausea, vomiting, abdominal pain, diarrhea, constipation, melena, hematochezia : Denies dysuria, hematuria, retention, frequency, urgency MSK: Denies new pains or weakness Neurologic: Denies new numbness/tingling Psych: increased agitation Physical Examination Other physical findings General exam: A&O 2, correct name & location & year, wrong month, NAD, somnolent, open eyes to sternal rub HEENT: NCAT, EOMI, PERRL, normal pupil size b/l, anicteric sclera, dry mucous membranes Cardiac: RRR, normal S1 & S2, 2/6 systolic murmur heard best right sternal border Respiratory: CTAB, good air exchange, no w/r/r Abdomen: soft, NT, ND, hypoactive bowel sounds Extremity: 2+ radial pulses, 2+ LE edema up to knee, no calf tenderness Skin: [place], warm, dry, no visible rash Msk: able to move extremities with equal abrasive grader strength b/l when awoken, normal tone Neuro: lethargic, awakes to sternal rub and repeating his name, cooperative with exam and follows commands, answers simple questions, but easily falls back asle ep. No slurred speech or facial droop or tongue deviation or laterality deficits. Neg Babinski Vital Signs Vital Signs Date Time Temp Pulse Resp B/P (MAP) Pulse Ox O2 Delivery O2 Flow Rate FiO2 10/16/19 00:05 98.4 76 18 123/69 (87) 96 Room Air Laboratory Data Labs 24H Laboratory Tests 2 10/15/19 20:09: Immature Granulocyte % (Auto) 0.3, Neutrophils (%) (Auto) 70.9H, Lymphocytes (%) (Auto) 19.5L, Monocytes (%) (Auto) 8.6H, Eosinophils (%) (Auto) 0.4, Basophils (%) (Auto) 0.3, Neutrophils # (Auto) 5.1, Lymphocytes # (Auto) 1.4L, Monocytes # (Auto) 0.6, Eosinophils # (Auto) 0.0, Basophils # (Auto) 0.0, Nucleated Red Blood Cells % (auto) 0.0, Anion Gap 6L, Glomerular Filtration Rate 59.9, Calcium Level 9.3, Magnesium Level 1.7L, Total Bilirubin 0.5, Direct Bilirubin 0.1, Aspartate Amino Transf (AST/SGOT) 27, Alanine Aminotransferase (ALT/SGPT) 12, Alkaline Phosphatase 99, Total Creatine Kinase 1074H, Creatine Kinase MB 8.9H, Creatine Kinase MB Relative Index 0.83, Troponin I < 0.02, Total Protein 6.7, Albumin 3.1L, Albumin/Globulin Ratio 0.86L 10/15/19 20:33: Urine Color YELLOW, Urine Appearance TURBIDH, Urine pH 6.0, Urine Specific [place] 1.011, Urine Protein 1+H, Urine Glucose (UA) NEGATIVE, Urine Ketones NEGATIVE, Urine Blood 1+H, Urine Nitrite NEGATIVE, Urine Bilirubin NEGATIVE, Urine Urobilinogen 0.2, Urine Leukocyte Esterase 3+H, Urine WBC (Auto) TNTCH, Urine RBC (Auto) 36H, Urine Hyaline Casts (Auto) 0, Urine Bacteria (Auto) 1+H, Urine Squamous Epithelial Cells 0, Urine Yeast-Like Cells (Auto) SMALLH, Urine Sperm (Auto) CBC/BMP Laboratory Tests 10/15/19 20:09 Microbiology Microbiology 10/15/19 Urine Culture, Received Pending Assessment/Plan 79 yo M with PMH notable for CVA with vascular dementia, CHF, CAD with stent, colon CA s/p surgery, ITP, brought in by for increased lethargy after taking first dose of 1mg Xanax last night. Recently stopped 3-week trial of Memantine & Donepizil and was switched to Xanax to attempt controlling his agitation. 1. Lethargy likely drug-induced from new start of Xanax. Pt had no symptoms prior to lethargic episode, which started after 1st dose of benzo no neuro deficits, non-focal exam. Pt is arousable and fully follows commands, but somnolent and falls back asleep no acute EKG ST or KS changes. Cardiac markers neg hold sedating meds and continue neurochecks. Keppra level pending unlikely infectious given afebrile, no leukocytosis. E-lytes acceptable NPO with IVF, aspiration & fall risk. Speech/swallow eval in place. Monitor on tele obtain PT & OT when able 2. Urinary Retention pt has baseline BPH, but noted to release 900cc clear urine once Castro inserted in ER likely also drug-induced from recent Xanax has positive UA, but pt did not complain of urinary sx prior to lethargy. No fever or leukocytosis withhold abx and monitor. Remove Castro as early as possible. Continue Flomax 3. Hypomagnesemia continue home mag supplement 4. IDDM 2: on 22U/day Lantus at home-hold and give short-acting while NPO 5. BPH: continue Flomax. Castro inserted in ER for retention and lethargic state. Remove when improved 6. 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 H&H stable at his baseline 10-11. No signs of bleed 7. Insomnia/anxiety: hold home psychotropics given somnolent state, Gabapentin, pain meds, Rozerem 8. Hypertension with hypertensive heart disease: bp controlled, monitor. Furosemide on hold with IVF on 9. CHF: hold diuretic while gently hydrating. Chronic LE edema, otherwise no signs of vol overload 10. Aortic stenosis: s/p repair 11. CAD with stent, HLD: continue ASA, statin, plavix 12. Colon cancer: S/P right hemicolectomy 13. Spinal stenosis: hold gabapentin 14. 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 Immune Thrombocytopenia Purpura: platelets nml. May continue Tavalisse 16. Tobacco use: active long-term smoker. Nicotine patch ordered DVT ppx: mechanical, avoid AC given hx ITP & GI bleed DISPO: will admit for further w/u and monitoring mentation. Plan / VTE VTE Prophylaxis Ordered?: Yes GME ATTESTATION GME ATTESTATION My faculty preceptor for this patient encounter was physically present during the encounter and was fully available. All aspects of the patient interview, examination, medical decision making process, and medical care plan development were reviewed and approved by the faculty preceptor. The faculty preceptor is aware and concurs with the plan as stated in the body of this note and will attest to such by his/her cosignature. NUZHAT BENTLEY DO Oct 16, 2019 00:54
[2019-10-16 06:00] VITALS: BP 120/59
[2019-10-16 06:13] LABS: HEMATOCRIT 32.7 % (42.0-52.0); HEMOGLOBIN 10.1 g/dl (13.5-17.5); MEAN CORPUSCULAR HEMOGLOBIN 27.5 pg (27.0-33.0); MEAN CORPUSCULAR HGB CONC 30.9 g/dl (32.0-36.5); MEAN CORPUSCULAR VOLUME 89.1 fl (80.0-96.0); PLATELET COUNT, AUTOMATED 171 10^3/uL (150-450); RED BLOOD COUNT 3.67 10^6/uL (4.30-6.10); WHITE BLOOD COUNT 5.5 10^3/uL (4.0-10.0)
[2019-10-16 06:37] LABS: BLOOD UREA NITROGEN 21 MG/DL (7-18); CARBON DIOXIDE LEVEL 30 MEQ/L (21-32); CHLORIDE LEVEL 108 MEQ/L (98-107); CREATININE FOR GFR 1.13 MG/DL (0.70-1.30); GLOMERULAR FILTRATION RATE > 60.0 (>42); GLUCOSE, FASTING 130 MG/DL (70-100); POTASSIUM SERUM 3.1 MEQ/L (3.5-5.1); SODIUM LEVEL 143 MEQ/L (136-145)
--- NOTE | 2019-10-16 08:56 | ECGEPIP ---
[facility] - ED Test Date: 2019-10-15 Pat Name: OMID JACKSON Department: Room: [place] [address] Gender: Male Glass Checker: giovanna : 1940 Requested By: GALINDO Drew Order Number: [id number] Reading MD: Russel Crum Measurements Intervals Slater Rate: 85 P: -20 NM: 133 QRS: -35 QRSD: 90 T: 67 QT: 372 QTc: 443 Interpretive Statements SINUS RHYTHM WITH OCCASIONAL VENTRICULAR PREMATURE COMPLEXES LEFT AXIS DEVIATION INCOMPLETE RIGHT BUNDLE BRANCH BLOCK BASELINE ARTIFACT AFFECTS INTERPRETATION SIMILAR TO 07/15/19 Electronically Signed on 10-16-2019 8:55:56 EST by Russel Crum
[2019-10-16] MEDS ORDERED: CIPROFLOXACIN 400 MG in IV 1 EA IV SCH (09:00)
[2019-10-16] MEDS: POTASSIUM CHLORIDE 10% LIQ 20 MEQ/15 ML UDC PO SCH (09:07)
[2019-10-16] MEDS: MAGNESIUM CHLORIDE 64 MG TABCR (SLO MAG) PO SCH (09:07)
[2019-10-16] MEDS: PANTOPRAZOLE 40MG TAB (PROTONIX) PO SCH (09:08)
[2019-10-16] MEDS: TAMSULOSIN 0.4 MG CAP PO SCH (09:08)
[2019-10-16] MEDS: PRAVASTATIN 20 MG TAB PO SCH (09:08)
[2019-10-16] MEDS: NICOTINE 21MG/24HR 1 EA TRANSDERMAL TD SCH (09:08)
[2019-10-16] MEDS: CLOPIDOGREL 75 MG TAB PO SCH (09:08)
[2019-10-16] MEDS: BISOPROLOL FUMARATE 10 MG TAB PO SCH (09:32)
--- NOTE | 2019-10-16 10:55 | IPNPDOC ---
Subjective Date Seen The patient was seen on 10/16/19. Subjective Chief Complaint/HPI LETHARGY, UTI Events since last encounter Admitted overnight for severe lethargy after taking Alprazolam 1 mg. Noted to have abnormal urine in ED. Given Cipro x 1 IV. Cultures are pending./ today, wakes easily to verbal stimuli, remains lethargic. S/p speech eval and recommended pureed foods with thin liquids. + urinary retention overnight. Castro catheter placed. s/p 4 runs of Vtach overnight. Occurred while resting, patient was asymptomatic. Constitutional: Reports: Weakness, Lethargy; Denies: Chills, Fever, Night Sweats Pulmonary: Denies: Dyspnea, Cough Cardiovascular: Denies: Chest Pain, Palpitations, Orthopnea, Paroxysmal Noc. Dyspnea, Lt Headedness Gastrointestinal: Denies: Nausea, Vomiting, Abdominal Pain, Diarrhea, C onstipation Genitourinary: Reports: Retention Objective Physical Examination General Exam: Positive: Alert (letheragic) Chest Exam: Positive: Clear to auscultation, Normal air movement Heart Exam: Positive: Rate Normal, Regular Rhythm, Normal S1, Normal S2; Negative: Murmurs, Rubs Extremity Exam: Positive: Normal pulses; Negative: Clubbing, Cyanosis, Edema Skin Exam: Positive: Nl turgor and temperature; Negative: Rash, Breakdown Psych Exam: Negative: Oriented x 3, Other (lethargic, falling asleep) Assessment /Plan Problems (1) UTI (urinary tract infection) Status: Acute Problem Text: started on Bactrim. Culture pending. (2) Lethargy Status: Acute Problem Text: most likely secondary to Alprazolam use. UTI is a contributing factor. remain on bedrest until mentaiton improves. consider PT and OOB tomorrow if mentation is improved. (3) Acute urinary retention Status: Acute Problem Text: Hx of BPH with retention. Castro catheter in place. (4) Difficulty walking Status: Acute Problem Text: PT once mentation improved. (5) CAD S/P percutaneous coronary angioplasty Status: Chronic (6) HTN (hypertension) Status: Chronic (7) PVD (peripheral vascular disease) Status: Chronic (8) Vascular dementia Status: Chronic (9) Diabetes mellitus Status: Chronic (10) Paroxysmal atrial fibrillation Status: Resolved Plan/VTE VTE Prophylaxis Ordered?: Yes Plan Pt and Family Services: Other PFS (may need placement based on recent behaviors: aggression, having difficulty caring for patient. ) VS, I&O, 24H, Fishbone Vital Signs/I&O Vital Signs Date Time Temp Pulse Resp B/P (MAP) Pulse Ox O2 Delivery O2 Flow Rate FiO2 10/16/19 09:32 63 10/16/19 06:00 97.9 19 120/59 (79) 98 Room Air I&O- Last 24 Hours up to 6 AM 10/16/19 06:00 Intake Total 361 ml Output Total 1500 ml Balance -1139 ml Laboratory Data 24H LABS Laboratory Tests 2 10/15/19 20:09: Immature Granulocyte % (Auto) 0.3, Neutrophils (%) (Auto) 70.9H, Lymphocytes (%) (Auto) 19.5L, Monocytes (%) (Auto) 8.6H, Eosinophils (%) (Auto) 0.4, Basophils (%) (Auto) 0.3, Neutrophils # (Auto) 5.1, Lymphocytes # (Auto) 1.4L, Monocytes # (Auto) 0.6, Eosinophils # (Auto) 0.0, Basophils # (Auto) 0.0, Nucleated Red Blood Cells % (auto) 0.0, Anion Gap 6L, Glomerular Filtration Rate 59.9, Calcium Level 9.3, Magnesium Level 1.7L, Total Bilirubin 0.5, Direct Bilirubin 0.1, Aspartate Amino Transf (AST/SGOT) 27, Alanine Aminotransferase (ALT/SGPT) 12, Alkaline Phosphatase 99, Total Creatine Kinase 1074H, Creatine Kinase MB 8.9H, Creatine Kinase MB Relative Index 0.83, Troponin I < 0.02, Total Protein 6.7, Albumin 3.1L, Albumin/Globulin Ratio 0.86L 10/15/19 20:33: Urine Color YELLOW, Urine Appearance TURBIDH, Urine pH 6.0, Urine Specific [place] 1.011, Urine Protein 1+H, Urine Glucose (UA) NEGATIVE, Urine Ketones NEGATIVE, Urine Blood 1+H, Urine Nitrite NEGATIVE, Urine Bilirubin NEGATIVE, Urine Urobilinogen 0.2, Urine Leukocyte Esterase 3+H, Urine WBC (Auto) TNTCH, Urine RBC (Auto) 36H, Urine Hyaline Casts (Auto) 0, Urine Bacteria (Auto) 1+H, Urine Squamous Epithelial Cells 0, Urine Yeast-Like Cells (Auto) SMALLH, Urine Sperm (Auto) 10/16/19 02:01: Bedside Glucose (Misc Panel) 131H 10/16/19 02:14: Ammonia 21 10/16/19 05:55: Bedside Glucose (Misc Panel) 123H 10/16/19 06:00: Nucleated Red Blood Cells % (auto) 0.0, Anion Gap 5L, Glomerular Filtration Rate > 60.0, Calcium Level 9.0 CBC/BMP Laboratory Tests 10/15/19 20:09 10/16/19 06:00 Microbiology Microbiology 10/15/19 Urine Culture, Received Pending Xenia Alvarado [facility] Oct 16, 2019 10:55
[2019-10-16] MEDS: LEVEMIR (INSULIN DETEMIR) 1 UNITS/0.01ML SC SCH ×2 (11:58→21:44)
[2019-10-16 14:00] VITALS: BP 129/60
[2019-10-16] MEDS ORDERED: HumaLOG INSULIN (NovoLOG) PER UNIT SC SCH ×2 (20:30→22:00)
[2019-10-16] MEDS: TAVALISSE PO SCH (21:00)
[2019-10-16] MEDS: BACTRIM 160MG/800MG DS TAB PO SCH (21:24)
[2019-10-16 22:00] VITALS: BP 138/54
[2019-10-16] MEDS ORDERED: GLUCAGON FOR INJ 1 MG VIAL (J1610) SC PRN ×2 (22:45)
[2019-10-16] MEDS ORDERED: DEXTROSE 50% 50 ML SYRINGE IV PRN ×2 (22:45)
[2019-10-16] MEDS ORDERED: GLUCOSE 4 GM CHEW TABLET PO PRN ×2 (22:45)
[2019-10-17] MEDS: ACETAMINOPHEN TAB 650MG DOSE (2X325MG) PO PRN (02:02)
[2019-10-17 06:00] VITALS: BP 134/55
[2019-10-17] MEDS: NS 1,000 ML IV SCH (06:20)
[2019-10-17 06:21] LABS: HEMATOCRIT 31.8 % (42.0-52.0); HEMOGLOBIN 9.9 g/dl (13.5-17.5); MEAN CORPUSCULAR HEMOGLOBIN 27.5 pg (27.0-33.0); MEAN CORPUSCULAR HGB CONC 31.1 g/dl (32.0-36.5); MEAN CORPUSCULAR VOLUME 88.3 fl (80.0-96.0); PLATELET COUNT, AUTOMATED 171 10^3/uL (150-450); WHITE BLOOD COUNT 5.2 10^3/uL (4.0-10.0)
[2019-10-17 06:46] LABS: BLOOD UREA NITROGEN 16 MG/DL (7-18); CALCIUM LEVEL 9.1 MG/DL (8.8-10.2); CARBON DIOXIDE LEVEL 27 MEQ/L (21-32); CHLORIDE LEVEL 110 MEQ/L (98-107); CREATININE FOR GFR 1.12 MG/DL (0.70-1.30); GLOMERULAR FILTRATION RATE > 60.0 (>42); GLUCOSE, FASTING 109 MG/DL (70-100); POTASSIUM SERUM 3.3 MEQ/L (3.5-5.1); SODIUM LEVEL 142 MEQ/L (136-145)
[2019-10-17] MEDS: HumaLOG INSULIN (NovoLOG) PER UNIT SC SCH ×4 (07:14→21:00)
[2019-10-17] MEDS ORDERED: HumaLOG INSULIN (NovoLOG) PER UNIT SC SCH (07:30)
[2019-10-17] MEDS: LEVEMIR (INSULIN DETEMIR) 1 UNITS/0.01ML SC SCH ×2 (09:00→22:06)
[2019-10-17] MEDS: PRAVASTATIN 20 MG TAB PO SCH (10:58)
[2019-10-17] MEDS: CLOPIDOGREL 75 MG TAB PO SCH (10:58)
[2019-10-17] MEDS: TAMSULOSIN 0.4 MG CAP PO SCH (10:58)
[2019-10-17] MEDS: PANTOPRAZOLE 40MG TAB (PROTONIX) PO SCH (10:58)
[2019-10-17] MEDS: BACTRIM 160MG/800MG DS TAB PO SCH (10:58)
[2019-10-17] MEDS: levETIRAcetam 250MG TABLET (KEPPRA) PO SCH ×2 (10:59→21:56)
[2019-10-17] MEDS: MAGNESIUM CHLORIDE 64 MG TABCR (SLO MAG) PO SCH (11:00)
[2019-10-17] MEDS: TAVALISSE PO SCH ×2 (11:00→21:56)
[2019-10-17] MEDS: POTASSIUM CHLORIDE 10% LIQ 20 MEQ/15 ML UDC PO SCH (11:01)
[2019-10-17] MEDS: NICOTINE 21MG/24HR 1 EA TRANSDERMAL TD SCH (11:01)
--- NOTE | 2019-10-17 11:26 | IPNPDOC ---
Subjective Date Seen The patient was seen on 10/17/19. Subjective Chief Complaint/HPI Nursing reports pt is uncooperative this morning. He has been refusing to take his meds. When I arrived to see him his is present. He is verbally abusive repeatedly towards her. Attempts at redirecting him fail and he remains verbally abusive towards her. She reports that most days he is like this all the time. She states that she work 2-3 nights a week and is with him at all other times. He has a sitter who stays with him when she is not. He was given Xanax x1 dose the day prior to his admission and she states that this put him out for the day and the next prompting her to bring him here. General: Reports: ROS Unobtainable Objective Physical Examination General Exam: Positive: Alert, Mild Distress Chest Exam: Positive: Clear to auscultation, Normal air movement Heart Exam: Positive: Rate Normal, Regular Rhythm, Normal S1, Normal S2; Negative: Murmurs, Rubs Extremity Exam: Negative: Edema Skin Exam: Negative: Rash Psych Exam: Positive: Other (verbally abusive, aggressive); Negative: Oriented x 3 Assessment /Plan Problems (1) Lethargy Status: Resolved Problem Text: 10/17 Per pts , received Xanax 1 mg before admission, pt became lethargic, brought to ED as a result. He is very aggressive again this morning. Refusing meds, verbally abusive to staff and his . Will add Ativan 0.5 mg IV q4h as needed. This may need to be adjusted. 10/16 most likely secondary to Alprazolam use. UTI is a contributing factor. remain on bedrest until mentation improves. consider PT and OOB tomorrow if mentation is improved. (2) UTI (urinary tract infection) Status: Acute Problem Text: On Bactrim DS, Urine culture was without growth, will DC and monitor. (3) Acute urinary retention Status: Acute Problem Text: Hx of BPH with retention. Castro catheter in place. (4) Difficulty walking Status: Acute Problem Text: PT once mentation improved. (5) CAD S/P percutaneous coronary angioplasty Status: Chronic (6) HTN (hypertension) Status: Chronic (7) PVD (peripheral vascular disease) Status: Chronic (8) Vascular dementia Status: Chronic (9) Diabetes mellitus Status: Chronic (10) Paroxysmal atrial fibrillation Status: Resolved Plan/VTE VTE Prophylaxis Ordered?: Yes (TEDS and SCDs plus encourage ambulation) VTE Exclusion Pharmacological: Other (he is on fostamatinib for chronic refractory ITP) Plan Pt and Family Services: Other PFS (may need placement based on recent behaviors: aggression, having difficulty caring for patient. ) Family Medicine Attending Note: I saw and examined Mr. Samano, discussed with THERESA Thomas. Agree with her note as documented. He was calmer when I saw him today. This was after he had received the IV lorazepam. His explained that he had been started on 2 mg of risperidone recently through Dr. Byrd's office as well as alprazolam as needed; I verified this in the medical record. I explained reusing the low dose of benzodiazepine to help with his extreme agitation. I will resume the 2 mg of Risperdal while he's calmer to see if we can identify regimen that he could potentially use a home. His sadly admits that if we are not able to control him on a regimen that she can easily administer at home she may not be able to take him back. Her desire is to have him back in the home, but she recognizes his agitation and aggression may be more than she can handle. Especially because she still needs to work 2-3 nights per week and is reliant on others to stay with him during that time. (hourly sales staff) VS, I&O, 24H, Fishbone Vital Signs/I&O Vital Signs Date Time Temp Pulse Resp B/P (MAP) Pulse Ox O2 Delivery O2 Flow Rate FiO2 10/17/19 06:00 97.8 66 21 134/55 (81) 95 10/16/19 22:00 Room Air I&O- Last 24 Hours up to 6 AM 10/17/19 06:00 Intake Total 1755 ml Output Total 750 ml Balance 1005 ml Laboratory Data 24H LABS Laboratory Tests 2 10/16/19 11:30: Bedside Glucose (Misc Panel) 160H 10/16/19 16:39: Bedside Glucose (Misc Panel) 147H 10/16/19 20:54: Bedside Glucose (Misc Panel) 150H 10/17/19 05:51: Nucleated Red Blood Cells % (auto) 0.0, Anion Gap 5L, Glomerular Filtration Rate > 60.0, Calcium Level 9.1 CBC/BMP Laboratory Tests 10/17/19 05:51 Microbiology Microbiology 10/15/19 Urine Culture - Final, Complete FRANCIS RAMACHANDRAN PA-C Oct 17, 2019 11:26 am Geronimo Ferrari MD Oct 17, 2019 7:59 pm
[2019-10-17] MEDS ORDERED: LORazepam 2 MG/ML VIAL (J2060) As Ordered ONE ×2 (11:31→11:38)
[2019-10-17] MEDS: LORazepam 2 MG/ML VIAL (J2060) IV PRN ×2 (11:43→20:06)
[2019-10-17] MEDS: BISOPROLOL FUMARATE 10 MG TAB PO SCH (11:46)
[2019-10-17 14:00] VITALS: BP 122/60
[2019-10-17] MEDS: risperiDONE 2 MG TAB PO SCH (15:52)
[2019-10-17] MEDS ORDERED: LORazepam 2 MG/ML VIAL (J2060) IV STA (21:34)
[2019-10-17 22:00] VITALS: BP 133/70
[2019-10-18 06:00] VITALS: BP 131/66
[2019-10-18 06:29] LABS: HEMATOCRIT 30.4 % (42.0-52.0); HEMOGLOBIN 9.3 g/dl (13.5-17.5); MEAN CORPUSCULAR HEMOGLOBIN 27.1 pg (27.0-33.0); MEAN CORPUSCULAR HGB CONC 30.6 g/dl (32.0-36.5); MEAN CORPUSCULAR VOLUME 88.6 fl (80.0-96.0); PLATELET COUNT, AUTOMATED 172 10^3/uL (150-450); RED BLOOD COUNT 3.43 10^6/uL (4.30-6.10); WHITE BLOOD COUNT 4.6 10^3/uL (4.0-10.0)
[2019-10-18 06:47] LABS: BLOOD UREA NITROGEN 11 MG/DL (7-18); CALCIUM LEVEL 8.7 MG/DL (8.8-10.2); CARBON DIOXIDE LEVEL 26 MEQ/L (21-32); CHLORIDE LEVEL 114 MEQ/L (98-107); GLOMERULAR FILTRATION RATE > 60.0 (>42); GLUCOSE, FASTING 103 MG/DL (70-100); POTASSIUM SERUM 3.4 MEQ/L (3.5-5.1); SODIUM LEVEL 145 MEQ/L (136-145)
[2019-10-18] MEDS: HumaLOG INSULIN (NovoLOG) PER UNIT SC SCH ×4 (07:30→21:00)
--- NOTE | 2019-10-18 12:01 | IPNPDOC ---
Subjective Date Seen The patient was seen on 10/18/19. Subjective Chief Complaint/HPI Mr. Samano was agitated again last night. Nursing called me while on-call and reported that the 0.5 mg of Ativan that is ordered was not having any effect on him. I prescribed an additional 1 mg of Ativan IV to calm him down. This sedated him and he has remained sleeping most of the morning. General: Reports: ROS Unobtainable (patient somnolent) Objective Physical Examination General Exam: Positive: No Acute Distress (sleeping comfortably in his bed when I entered his room, a [facility] staff member is present for safety); Negative: Alert Eye Exam: Negative: Sclera icteric ENT Exam: Positive: Mucous membr. moist/pink Chest Exam: Positive: Clear to auscultation, Normal air movement Heart Exam: Positive: Rate Normal, Regular Rhythm, Normal S1, Normal S2; Negative: Murmurs, Rubs Abdomen Exam: Positive: Normal bowel sounds, Soft; Negative: Tenderness Extremity Exam: Negative: Edema Assessment /Plan Problems (1) Lethargy Status: Resolved Problem Text: 10/18: Last night he became agitated and received an additional 1mg of Ativan. Today he is somnolent, but clinically stable. Unfortunately, it is becoming hard to find the correct dose of medication for his behaviors. He has only had one dose of his usual Risperdal at this time. Maybe once he gets more of this in he will mellow a little. If we have another episode like this, I will likely consult psychiatry to see if they have suggestions for modification of his pharmacotherapy. 10/17 Per pts , received Xanax 1 mg before admission, pt became lethargic, brought to ED as a result. He is very aggressive again this morning. Refusing meds, verbally abusive to staff and his . Will add Ativan 0.5 mg IV q4h as needed. This may need to be adjusted. 10/16 most likely secondary to Alprazolam use. UTI is a contributing factor. remain on bedrest until mentation improves. consider PT and OOB tomorrow if mentation is improved. (2) Acute urinary retention Status: Acute Problem Text: Hx of BPH with retention. Castro catheter in place. (3) Vascular dementia Status: Chronic (4) Difficulty walking Status: Acute Problem Text: PT once mentation improved. (5) CAD S/P percutaneous coronary angioplasty Status: Chronic (6) HTN (hypertension) Status: Chronic Problem Text: His BP has been reasonably controlled. Continue current regimen, monitor. (7) PVD (peripheral vascular disease) Status: Chronic (8) Diabetes mellitus Status: Chronic (9) Paroxysmal atrial fibrillation Status: Resolved (10) UTI (urinary tract infection) Status: Resolved Problem Text: On Bactrim DS, Urine culture was without growth, will DC and monitor. Plan/VTE VTE Prophylaxis Ordered?: Yes (TEDS and SCDs plus encourage ambulation) VTE Exclusion Pharmacological: Other (he is on fostamatinib for chronic refractory ITP) Plan Pt and Family Services: Other PFS (may need placement based on recent behaviors: aggression, having difficulty caring for patient. ) VS, I&O, 24H, Fishbone Vital Signs/I&O Vital Signs Date Time Temp Pulse Resp B/P (MAP) Pulse Ox O2 Delivery O2 Flow Rate FiO2 10/18/19 06:00 97.2 67 17 131/66 (87) 94 Room Air I&O- Last 24 Hours up to 6 AM 10/18/19 06:00 Intake Total 675 ml Output Total 950 ml Balance -275 ml Laboratory Data 24H LABS Laboratory Tests 2 10/17/19 17:14: Bedside Glucose (Misc Panel) 137H 10/17/19 21:16: Bedside Glucose (Misc Panel) 164H 10/18/19 05:34: Nucleated Red Blood Cells % (auto) 0.0, Anion Gap 5L, Glomerular Filtration Rate > 60.0, Calcium Level 8.7L CBC/BMP Laboratory Tests 10/18/19 05:34 Microbiology Microbiology 10/15/19 Urine Culture - Final, Complete Geronimo Ferrari MD Oct 18, 2019 12:01 pm
[2019-10-18] MEDS: MAGNESIUM CHLORIDE 64 MG TABCR (SLO MAG) PO SCH (13:18)
[2019-10-18] MEDS: POTASSIUM CHLORIDE 10% LIQ 20 MEQ/15 ML UDC PO SCH (13:19)
[2019-10-18] MEDS: TAVALISSE PO SCH ×2 (13:19→21:00)
[2019-10-18] MEDS: risperiDONE 2 MG TAB PO SCH (13:20)
[2019-10-18] MEDS: NICOTINE 21MG/24HR 1 EA TRANSDERMAL TD SCH (13:21)
[2019-10-18] MEDS: levETIRAcetam 250MG TABLET (KEPPRA) PO SCH ×2 (13:23→21:26)
[2019-10-18] MEDS: CLOPIDOGREL 75 MG TAB PO SCH (13:23)
[2019-10-18] MEDS: PRAVASTATIN 20 MG TAB PO SCH (13:23)
[2019-10-18] MEDS: PANTOPRAZOLE 40MG TAB (PROTONIX) PO SCH (13:24)
[2019-10-18] MEDS: ACETAMINOPHEN TAB 650MG DOSE (2X325MG) PO PRN (13:24)
[2019-10-18] MEDS: TAMSULOSIN 0.4 MG CAP PO SCH (13:25)
[2019-10-18 14:00] VITALS: BP 133/60
[2019-10-18] MEDS: BISOPROLOL FUMARATE 10 MG TAB PO SCH (14:28)
[2019-10-18] MEDS: LEVEMIR (INSULIN DETEMIR) 1 UNITS/0.01ML SC SCH ×2 (14:29→21:27)
[2019-10-18 22:00] VITALS: BP 126/59
[2019-10-19] MEDS: ACETAMINOPHEN TAB 650MG DOSE (2X325MG) PO PRN ×2 (01:47→11:54)
[2019-10-19 05:45] LABS: HEMATOCRIT 30.9 % (42.0-52.0); HEMOGLOBIN 9.6 g/dl (13.5-17.5); MEAN CORPUSCULAR HEMOGLOBIN 27.4 pg (27.0-33.0); MEAN CORPUSCULAR HGB CONC 31.1 g/dl (32.0-36.5); MEAN CORPUSCULAR VOLUME 88.3 fl (80.0-96.0); PLATELET COUNT, AUTOMATED 179 10^3/uL (150-450); WHITE BLOOD COUNT 4.6 10^3/uL (4.0-10.0)
[2019-10-19 06:00] VITALS: BP 145/62
[2019-10-19 06:07] LABS: ALBUMIN 2.5 GM/DL (3.2-5.2); ALT/SGPT 9 U/L (12-78); BILIRUBIN,TOTAL 0.3 MG/DL (0.2-1.0); BLOOD UREA NITROGEN 15 MG/DL (7-18); CALCIUM LEVEL 8.6 MG/DL (8.8-10.2); CARBON DIOXIDE LEVEL 25 MEQ/L (21-32); CHLORIDE LEVEL 113 MEQ/L (98-107); CREATININE FOR GFR 1.14 MG/DL (0.70-1.30); GLOMERULAR FILTRATION RATE > 60.0 (>42); GLUCOSE, FASTING 139 MG/DL (70-100); POTASSIUM SERUM 3.7 MEQ/L (3.5-5.1); SODIUM LEVEL 142 MEQ/L (136-145); TOTAL PROTEIN 6.3 GM/DL (6.4-8.2)
[2019-10-19] MEDS: CLOPIDOGREL 75 MG TAB PO SCH (08:04)
[2019-10-19] MEDS: MAGNESIUM CHLORIDE 64 MG TABCR (SLO MAG) PO SCH (08:04)
[2019-10-19] MEDS: PRAVASTATIN 20 MG TAB PO SCH (08:04)
[2019-10-19] MEDS: PANTOPRAZOLE 40MG TAB (PROTONIX) PO SCH (08:04)
[2019-10-19] MEDS: levETIRAcetam 250MG TABLET (KEPPRA) PO SCH ×2 (08:04→21:14)
[2019-10-19] MEDS: POTASSIUM CHLORIDE 10% LIQ 20 MEQ/15 ML UDC PO SCH (08:04)
[2019-10-19] MEDS: risperiDONE 2 MG TAB PO SCH (08:05)
[2019-10-19] MEDS: TAMSULOSIN 0.4 MG CAP PO SCH (08:05)
[2019-10-19] MEDS: NICOTINE 21MG/24HR 1 EA TRANSDERMAL TD SCH (08:05)
[2019-10-19] MEDS: HumaLOG INSULIN (NovoLOG) PER UNIT SC SCH ×4 (08:05→21:00)
[2019-10-19] MEDS: LEVEMIR (INSULIN DETEMIR) 1 UNITS/0.01ML SC SCH ×2 (08:06→21:13)
[2019-10-19] MEDS: TAVALISSE PO SCH ×2 (08:06→21:15)
[2019-10-19] MEDS: BISOPROLOL FUMARATE 10 MG TAB PO SCH (08:09)
[2019-10-19] MEDS ORDERED: LORazepam 2 MG/ML VIAL (J2060) As Ordered ONE (11:26)
[2019-10-19] MEDS: LORazepam 2 MG/ML VIAL (J2060) IV PRN (11:29)
[2019-10-19 14:00] VITALS: BP 142/65
--- NOTE | 2019-10-19 14:12 | IPNPDOC ---
Subjective Date Seen The patient was seen on 10/19/19. Subjective Chief Complaint/HPI Augie had some difficulty overnight. He insisted that his Castro catheter was discontinued yesterday evening. Both his nurse and I tried to explain that it was necessary because he wasn't able to urinate effectively when he was admitted. He still insisted that we remove the catheter and this eventually was done. He had not voided in 8h, so I was called and requested he be straight cathed x 1 to see if maybe his bladder muscles would strengthen before the next void. Unfortunately he was not able to void in the next 8h either. When his arrived, he tried to urinate, but was only able to get a little out. I requested that the Castro catheter be replaced, but he initially refused. Eventually he agreed to this and it is in place again. His is becoming frustrated because she feels that the lorazepam only helps temporarily and she feels it makes him meaner after he wakes up from it. She reiterated that she would like to bring him home, but needs to have an oral regimen that will keep him even keeled. If that isn't possible, then he may need to be placed. Genitourinary: Reports: Retention Psych: Reports: Memory Issues, Anger (directed at his who he feels is medling), Other Psych (visual hallucinations (papers on the floor, worms crawling out of people's heads, etc) that he defends as "the way I see things"); Denies: Mood Normal Objective Physical Examination General Exam: Positive: Alert, Cooperative (with me, but simultaneously short with his who is in the room), No Acute Distress (sitting comfortably at the side of his bed talking with his when I enter the room) Eye Exam: Negative: Sclera icteric ENT Exam: Positive: Mucous membr. moist/pink Chest Exam: Positive: Clear to auscultation, Normal air movement Heart Exam: Positive: Rate Normal, Regular Rhythm, Normal S1, Normal S2; Negative: Murmurs, Rubs Abdomen Exam: Positive: Normal bowel sounds, Soft; Negative: Tenderness Male Exam: Negative: Discharge (Castro catheter is in place and draining medium yellow urine) Extremity Exam: Negative: Edema Assessment /Plan Problems (1) Vascular dementia Status: Chronic Problem Specific Plan: Consult Specialist, Monitor Clinically Problem Text: He has had an episode of delirium each of the recent days, though they are not always at the same time. His is looking for an oral regimen that will stabilize him so she can take him home. She is reliant on friends to watch him overnight for ~3 nights per week while she works, so she needs a regimen that won't burn her bridges with them. I have asked Psychiatry to assist with finding the right regimen for him. Review of his out patient record reveals that these episodes have been more frequent since his last hospitalization in July during which he had episodes of altered mental status (that record included the details of a fairly complete workup for altered mental status by neurology). They were initially controlled with 0.5mg oral lorazepam, which the patient and his felt were helping. On September 20 Dr. Byrd stopped this medication and started donepezil and a taper up dose of memantine. On October 08 they called the office to report that he was acting odd and more angry. He was leaving the house to drive around to cool off, but he won't tell his where he is going. This concerns many people. They requested permission to stop the donepezil as his wondered if this was a part of the problem. At the same time his was saying that he can't have nothing for the agitation until he is seen again so she requested Xanax. Dr. Byrd prescribed 1mg of alprazolam along with 2mg of risperidone. On 10/15 there was a message saying that he was having hallucinations (before taking any medication), so his gave him some alprazolam to help control the symptoms. This made him very lethargic. She reported being overwhelmed with trying to provide for his care and also work to support them. He presented to the ER that same evening and was admitted. (2) Acute urinary retention Status: Acute Discussed With: Nurse, Patient, Family with Pt Consent Problem Specific Plan: Monitor Clinically Problem Text: Hx of BPH with retention. Castro catheter in place. He insisted it was removed last night, but was not able to void on his own after that, so it had to be replaced this morning; he was not pleased about this. I have increased his tamsulosin to 0.8mg, we will need to watch for orthostatic hypotension. I will add finasteride on too, but that will take months to really help. (3) Difficulty walking Status: Acute Problem Text: PT once mentation improved. (4) CAD S/P percutaneous coronary angioplasty Status: Chronic (5) HTN (hypertension) Status: Chronic Problem Text: His BP has been reasonably controlled. Continue current regimen, monitor. (6) PVD (peripheral vascular disease) Status: Chronic (7) Diabetes mellitus Status: Chronic (8) Paroxysmal atrial fibrillation Status: Chronic (9) UTI (urinary tract infection) Status: Resolved Problem Text: On Bactrim DS, Urine culture was without growth, will DC and monitor. (10) Lethargy Status: Resolved Problem Text: 10/19: As long as he stays with small dose of benzodiazapine he doesn't seem to get lethargic, but these do seem to disinhibit him. 10/18: Last night he became agitated and received an additional 1mg of Ativan. Today he is somnolent, but clinically stable. Unfortunately, it is becoming hard to find the correct dose of medication for his behaviors. He has only had one dose of his usual Risperdal at this time. Maybe once he gets more of this in he will mellow a little. If we have another episode like this, I will likely consult psychiatry to see if they have suggestions for modification of his pharmacotherapy. 10/17 Per pts , received Xanax 1 mg before admission, pt became lethargic, brought to ED as a result. He is very aggressive again this morning. Refusing meds, verbally abusive to staff and his . Will add Ativan 0.5 mg IV q4h as needed. This may need to be adjusted. 10/16 most likely secondary to Alprazolam use. UTI is a contributing factor. remain on bedrest until mentation improves. consider PT and OOB tomorrow if mentation is improved. Plan/VTE VTE Prophylaxis Ordered?: Yes (TEDS and SCDs plus encourage ambulation) VTE Exclusion Pharmacological: Other (he is on fostamatinib for chronic refractory ITP) Plan Pt and Family Services: Other PFS (may need placement based on recent behaviors: aggression, having difficulty caring for patient. ) VS, I&O, 24H, Fishbone Vital Signs/I&O Vital Signs Date Time Temp Pulse Resp B/P (MAP) Pulse Ox O2 Delivery O2 Flow Rate FiO2 11/30/19 08:09 64 164/62 10/19/19 06:00 99.2 18 97 Room Air I&O- Last 24 Hours up to 6 AM 10/19/19 06:00 Intake Total 1480 ml Output Total 1250 ml Balance 230 ml Laboratory Data 24H LABS Laboratory Tests 2 10/18/19 17:16: Bedside Glucose (Misc Panel) 141H 10/18/19 21:24: Bedside Glucose (Misc Panel) 173H 10/19/19 05:21: Nucleated Red Blood Cells % (auto) 0.0, Anion Gap 4L, Glomerular Filtration Rate > 60.0, Calcium Level 8.6L, Total Bilirubin 0.3, Aspartate Amino Transf (AST/SGOT) 12, Alanine Aminotransferase (ALT/SGPT) 9L, Alkaline Phosphatase 83, Ammonia 22, Total Protein 6.3L, Albumin 2.5L, Albumin/Globulin Ratio 0.66L 10/19/19 11:39: Bedside Glucose (Misc Panel) 183H CBC/BMP Laboratory Tests 10/19/19 05:21 Microbiology Microbiology 10/15/19 Urine Culture - Final, Complete Geronimo Ferrari MD Oct 19, 2019 14:12
[2019-10-19] MEDS ORDERED: HALOPERIDOL 5 MG/ML VIAL (J1630) IM PRN (14:15)
[2019-10-19] MEDS ORDERED: QUEtiapine FUMARATE 12.5 MG HALF-TAB PO PRN (14:45)
[2019-10-19] MEDS ORDERED: TAMSULOSIN 0.4 MG CAP PO ONE (15:00)
--- NOTE | 2019-10-19 15:30 | MHCRPDOC ---
[facility] Consultation Consultation Augie Samano MRN: N/A Date of : N/A Date of Service: 10/19/2019 Chief Complaint Consultation from Dr. Ferrari for agitation medications in the setting of dementia. History of Present Illness The patient, a 79-year-old man, has a history of dementia. He's seen in consultation. He has a history of dementia reportedly vascular in origin and has been admitted to the inpatient medical unit due to AMS secondary to likely delirium/encephalopathy. The patient has gotten verbally aggressive with his and has been noncompliant at times with medical treatments banging his head against a wall, last nurse stated, when he becomes confused. He has a history of increasing problems and has been tried by his primary care Dr. Byrd on various benzodiazepines including Xanax, Ativan and risperidone with little success. He additionally has been tried on amantadine and donepezil with poor results. When I met the patient, he was relatively nice and amenable. His longtime friend was present and he consented to have him present. His was not present for the interview, however, he was amenable, although mildly disorientated. He did not get the day right, but was orientated to place and person. The patient stated that he does get upset and irritable and feels that he can be "mean to his ." The patient states that he does have trouble with his memory, but it's not clear as to why he's on so many medications and feels that they make him too sleepy. His reportedly had stated that she felt the Ativan made him worse and that other benzodiazepines only made him sedated for a short time before making him far more angry afterwards. The patient stated he had no history of psychiatric involvement and that he was unsure whether his diagnosis of dementia was correct. Review Of Systems Depression: The patient denies any episodes of unprovoked depressed mood associated with neurovegetative symptoms lasting longer than 2 weeks with symptoms present nearly everyday. Anxiety: The patient denies any excessive worry associated with physical symptoms. They deny any experience of discreet panic in the past. Mariaa: The patient denies any episodes of euphoria/dysphoria associated with decreased need for sleep, hedonism, talkatively or impulsivity lasting longer than 5 days. Psychotic: The patient denies any experiences of auditory or visual imtiaz lucinations. They deny any episodes of paranoia or delusional thinking in the past Trauma: The patient denies any traumatic events associated with nightmares or intrusive thoughts. Borderline: The patient screens negative for borderline personality at this junction. Past Psychiatric History Denies any history of suicide attempts. Allergies Please see below. Family Psychiatric History The patient denies/is unaware any history of mental health history including addictions and suicide. Social History The patient lives in the local area with his . He's retired. He denies having any significant early relational problems, is well supported by his and multiple friends. Has several adult children. Substance Abuse History Reports a history of tobacco use roughly a pack-a-day. Denies excessive alcohol use or other illicit substances. Medical History Reportedly has a history of vascular dementia with vascular comorbidities. Mental Status Examination General: Well dressed with good hygiene Speech: Spontaneous and fluid Thought processes: Linear and logical MSK: Smooth and coordinated gait, no signs of tremors or involuntary orofacial movements Thought content: Pleasant and amenable Abstract reasoning, and computation: Intact Description of associations: Intact Description of abnormal or psychotic thoughts: Denies any suicidal or homicidal ideation. Denies any auditory or visual hallucinations. Does not appear to be responding to internal stimuli. Does not appear to be endorsing any bizarre or paranoid ideation. Judgment: fair Insight: fair Orientation: Alert and orientated to place and person, but not date Cognition: Mildly impaired Recent and remote memory: Mild impairment Attention span and concentration: Intact Fund of knowledge: Adequate Mood: "okay" Affect: Euthymic with a full range Diagnoses Encephalopathy, resolving. Dementia/major neurocognitive disorder, unspecified. Assessment and Plan The patient, a 79-year-old man, who when he's not confused appears quite nice and amenable. Has had significant trouble with agitation. Given his history of dementia and lack of psychiatric history, it appears quite clear that he's suffering from behavioral disturbances secondary to a major neurocognitive disorder that is not quite parsed out. He has no history of neuropsychiatric testing, which would be needed in order to parse out the type of dementia in order to understand prognosis treatment and other options. Benzodiazepines are generally avoided in those that are older than 65 and generally en cephalopathy/dementia do poorly on it as it creates more disinhibition. I recommend discontinuing risperidone, Haldol and benzodiazepines as they have poor evidence. Seroquel 12.5 PRN TID would likely be a suitable alternative as oversedation and confusion are only made worse by higher end antipsychotics. Additionally, lower exposure to antipsychotics is recommended in individuals who are demented as antipsychotics do carry a black box warning for stroke. Discussed with Dr. Ferrari the informed consent to relate to , however, it's standard of care in individuals who are agitated with dementia to use low-dose neuroleptics. Low exposure due to PRN nature will likely minimize the risk of stroke especially given the history of potential vascular dementia. Neuro psychiatric testing/neuropsychological testing is recommended as an outpatient likely at [facility] in order to ascertain better his treatment and needs. Additionally, Rozerem 8 mg nightly can be started as it will help reduce the encephalopathy and has good evidence for prevention of delirium in individuals with dementia. As an outpatient, it's recommended that melatonin 3 mg up to 10 mg can be used [id number] as Rozerem is a melatonergic agent and we do not have simple melatonin on her formulary. It's a suitable alternative in the short term. Disposition Does not meet involuntary criteria, is not suicidal or homicidal. Primary diagnosis of dementia is ineligible for inpatient psychiatric treatment. He has no interest in being admitted to an inpatient psychiatric unit and does not meet involuntary criteria due to the aforementioned factors elaborated above with no previous psychiatric history, primarily experiencing symptoms of potential dementia/encephalopathy. Time Spent 60 minutes. Monday Vital Signs Vital Signs Date Time Temp Pulse Resp B/P (MAP) Pulse Ox O2 Delivery O2 Flow Rate FiO2 10/19/19 14:00 98.9 67 18 142/65 (90) 100 Room Air Laboratory Data 24H Labs Laboratory Tests 2 10/18/19 17:16: Bedside Glucose (Misc Panel) 141H 10/18/19 21:24: Bedside Glucose (Misc Panel) 173H 10/19/19 05:21: Nucleated Red Blood Cells % (auto) 0.0, Anion Gap 4L, Glomerular Filtration Rate > 60.0, Calcium Level 8.6L, Total Bilirubin 0.3, Aspartate Amino Transf (AST/SGOT) 12, Alanine Aminotransferase (ALT/SGPT) 9L, Alkaline Phosphatase 83, Ammonia 22, Total Protein 6.3L, Albumin 2.5L, Albumin/Globulin Ratio 0.66L 10/19/19 11:39: Bedside Glucose (Misc Panel) 183H Home Medications Current Medications Current Medications Medications (Trade) Dose Ordered Sig/Bradford Route PRN Reason Start Time Stop Time Status Last Admin Dose Admin Acetaminophen (Tylenol Tab) 650 mg Q4H PRN PO PAIN OR FEVER 10/16/19 00:15 10/19/19 11:54 Bisoprolol Fumarate (Zebeta) 10 mg DAILY PO 10/16/19 09:00 10/19/19 08:09 Ciprofloxacin 400 mg/IV Miscellaneous Supplies 200 ml @ 200 mls/hr DAILY IV 10/16/19 09:00 10/16/19 00:07 DC Clopidogrel Bisulfate (PLAVix) 75 mg DAILY PO 10/16/19 09:00 10/19/19 08:04 Dextrose (Dextrose 50%) 25 ml ASDIRECTED PRN IV SEE LABEL COMMENTS 10/16/19 00:00 Dextrose (Dextrose 50%) 25 ml ASDIRECTED PRN IV SEE LABEL COMMENTS 10/16/19 22:45 UNV Glucagon (Glucagon) 1 mg ASDIRECTED PRN SC SEE LABEL COMMENTS 10/16/19 00:00 Glucagon (Glucagon) 1 mg ASDIRECTED PRN SC SEE LABEL COMMENTS 10/16/19 22:45 UNV Glucose (Glucose) 16 GM ASDIRECTED PRN PO SEE LABEL COMMENTS 10/16/19 00:00 Glucose (Glucose) 16 GM ASDIRECTED PRN PO SEE LABEL COMMENTS 10/16/19 22:45 UNV Haloperidol (Haldol) 5 mg Q6HP PRN IM AGITATION 10/19/19 14:15 10/19/19 14:35 DC Home Med (Med Rec Complete!) ASDIRECTED XX 10/16/19 00:45 10/16/19 00:36 DC Insulin Detemir (Levemir Insulin) 10 units BID SC 10/16/19 09:00 10/19/19 08:06 Insulin Human Lispro (HumaLOG INSULIN) AC SC 10/17/19 07:30 10/16/19 22:36 DC Insulin Human Lispro (HumaLOG INSULIN) SEE PROTOCOL TABLE AC SC 10/17/19 07:30 10/19/19 08:05 Insulin Human Lispro (HumaLOG INSULIN) SEE PROTOCOL TABLE ACHS SC 10/16/19 20:30 10/16/19 21:50 DC Insulin Human Lispro (HumaLOG INSULIN) SEE PROTOCOL TABLE Q6H UT 10/16/19 00:00 10/16/19 20:21 DC 10/16/19 18:47 Insulin Human Lispro (HumaLOG INSULIN) SEE PROTOCOL TABLE QHS UT 10/16/19 21:00 Insulin Human Lispro (HumaLOG INSULIN) [facility] 22:00 10/16/19 22:36 DC Levetiracetam (Keppra) 500 mg BID PO 10/15/19 21:00 10/19/19 08:04 Lorazepam (Ativan) 0.5 mg Q4HP PRN IV AGITATION 10/17/19 11:30 10/19/19 14:17 DC 10/19/19 11:29 Lorazepam (Ativan) 1 mg STAT STAT IV 10/17/19 21:34 10/17/19 21:37 DC 10/17/19 21:48 Magnesium Chloride (Slow-Mag) 64 mg DAILY PO 10/16/19 09:00 10/19/19 08:04 Miscellaneous (Unresolved Patient Own Med Order) SEE LABEL COMMENTS DAILY XX 10/16/19 09:00 10/16/19 18:47 DC Nicotine (Nicoderm Cq 21mg) 1 patch DAILY TD 10/16/19 09:00 10/19/19 08:05 Pantoprazole Sodium (Protonix) 40 mg DAILY PO 10/16/19 09:00 10/19/19 08:04 Patient Own Medication (Patient'S Own Med) Tavalisse 150mg bid-h... BID PO 10/16/19 21:00 10/19/19 08:06 Potassium Chloride (Potassium Chloride Liquid) 20 meq DAILY PO 10/16/19 09:00 10/19/19 08:04 Pravastatin Sodium (Pravachol) 20 mg DAILY PO 10/16/19 09:00 10/19/19 08:04 Quetiapine Fumarate (SEROquel) 12.5 mg BIDP PRN PO ANXIETY/AGITATION 10/19/19 14:45 Risperidone (RisperDAL) 2 mg DAILY PO 10/17/19 09:00 10/19/19 08:05 Sodium Chloride 1,000 ml @ 75 mls/hr [id number] IV 10/16/19 00:00 10/17/19 11:19 DC 10/17/19 06:20 Tamsulosin HCl (Flomax) 0.4 mg DAILY PO 10/16/19 09:00 10/19/19 14:17 DC 10/19/19 08:05 Tamsulosin HCl (Flomax) 0.8 mg DAILY PO 10/20/19 09:00 Trimethoprim/ Sulfamethoxazole (Bactrim Ds, Septra Ds 160mg/ 800mg) 1 tab BID PO 10/16/19 21:00 10/17/19 11:27 DC 10/17/19 10:58 Scheduled Bisoprolol Fumarate (Bisoprolol Fumarate) 10 Mg Tablet, 10 MG PO DAILY, (Reported) Clopidogrel Bisulfate (Plavix) 75 Mg Tablet, 75 MG PO DAILY, (Reported) Famotidine (Famotidine) 40 Mg Tablet, 40 MG PO DAILY, (Reported) Fostamatinib Disodium (Tavalisse) 150 Mg Tablet, 150 MG PO BID, (Reported) Furosemide (Furosemide) 20 Mg Tablet, 20 MG PO DAILY, (Reported) Gabapentin (Gabapentin) 300 Mg Capsule, 300 MG PO TID, (Reported) Insulin Glargine,Hum.rec.anlog (Lantus Solostar) 100 Unit/1 Ml Insuln.pen, 22 UNITS SC DAILY, (Reported) Levetiracetam (Levetiracetam) 250 Mg Tablet, 500 MG PO BID, (Reported) Magnesium Chloride (Mag64) 64 Mg Tablet.dr, 64 MG PO DAILY, (Reported) Pantoprazole Sodium (Pantoprazole Sodium) 40 Mg Tablet.dr, 40 MG PO DAILY, (Reported) Potassium Chloride (Potassium Chloride) 20 Meq/15 Ml Liquid, 15 ML PO DAILY, (Reported) PT DID NOT GARMENT MENDER THEIR PRESCRIPTION Pravastatin Sodium (Pravastatin Sodium) 20 Mg Tablet, 20 MG PO DAILY, (Reported) Tamsulosin HCl (Flomax) 0.4 Mg Capsule, 0.4 MG PO DAILY, (Reported) once daily 1/2 hour following the same meal each day Scheduled PRN Hydrocodone/Acetaminophen (Hydrocodone-Acetamin 5-325 mg) 1 Each Tablet, 2 TAB PO Q6H PRN for PAIN, (Reported) Ramelteon (Rozerem) 8 Mg Tablet, 8 MG PO QHS PRN for SLEEP, (Reported) Allergies Coded Allergies: procaine (Verified Allergy, Severe, difficulty breathing, 05/20/19) Penicillins (Verified Allergy, Intermediate, swelling, 02/13/19) JJ HAN DO Oct 19, 2019 15:30
[2019-10-19] MEDS: RAMELTEON 8 MG TAB (ROZEREM) PO SCH (21:14)
[2019-10-19 22:00] VITALS: BP 157/73
[2019-10-20] MEDS: QUEtiapine FUMARATE 12.5 MG HALF-TAB PO PRN ×3 (00:04→18:59)
[2019-10-20] MEDS: ACETAMINOPHEN TAB 650MG DOSE (2X325MG) PO PRN ×2 (00:18→10:37)
[2019-10-20 05:47] LABS: HEMATOCRIT 33.7 % (42.0-52.0); HEMOGLOBIN 10.5 g/dl (13.5-17.5); MEAN CORPUSCULAR HEMOGLOBIN 27.1 pg (27.0-33.0); MEAN CORPUSCULAR HGB CONC 31.2 g/dl (32.0-36.5); MEAN CORPUSCULAR VOLUME 87.1 fl (80.0-96.0); PLATELET COUNT, AUTOMATED 206 10^3/uL (150-450); RED BLOOD COUNT 3.87 10^6/uL (4.30-6.10)
[2019-10-20 06:00] VITALS: BP 132/55
[2019-10-20 06:13] LABS: BLOOD UREA NITROGEN 11 MG/DL (7-18); CALCIUM LEVEL 9.1 MG/DL (8.8-10.2); CARBON DIOXIDE LEVEL 25 MEQ/L (21-32); CHLORIDE LEVEL 110 MEQ/L (98-107); CREATININE FOR GFR 1.11 MG/DL (0.70-1.30); GLOMERULAR FILTRATION RATE > 60.0 (>42); GLUCOSE, FASTING 124 MG/DL (70-100); POTASSIUM SERUM 3.7 MEQ/L (3.5-5.1); SODIUM LEVEL 142 MEQ/L (136-145)
[2019-10-20] MEDS: PANTOPRAZOLE 40MG TAB (PROTONIX) PO SCH (09:39)
[2019-10-20] MEDS: BISOPROLOL FUMARATE 10 MG TAB PO SCH (09:39)
[2019-10-20] MEDS: TAMSULOSIN 0.4 MG CAP PO SCH (09:40)
[2019-10-20] MEDS: CLOPIDOGREL 75 MG TAB PO SCH (09:40)
[2019-10-20] MEDS: POTASSIUM CHLORIDE 10% LIQ 20 MEQ/15 ML UDC PO SCH (09:40)
[2019-10-20] MEDS: levETIRAcetam 250MG TABLET (KEPPRA) PO SCH ×2 (09:40→20:48)
[2019-10-20] MEDS: PRAVASTATIN 20 MG TAB PO SCH (09:40)
[2019-10-20] MEDS: NICOTINE 21MG/24HR 1 EA TRANSDERMAL TD SCH (09:41)
[2019-10-20] MEDS: MAGNESIUM CHLORIDE 64 MG TABCR (SLO MAG) PO SCH (09:41)
[2019-10-20] MEDS: TAVALISSE PO SCH ×2 (09:41→20:48)
[2019-10-20] MEDS: HumaLOG INSULIN (NovoLOG) PER UNIT SC SCH ×4 (09:42→20:43)
[2019-10-20] MEDS: LEVEMIR (INSULIN DETEMIR) 1 UNITS/0.01ML SC SCH ×2 (09:42→20:49)
[2019-10-20 14:00] VITALS: BP 137/65
[2019-10-20] MEDS: ALPRAZolam 0.5 MG TAB PO PRN (14:52)
--- NOTE | 2019-10-20 16:11 | IPNPDOC ---
Subjective Date Seen The patient was seen on 10/20/19. Subjective Chief Complaint/HPI Augie was quite agitated around noontime today and I was called urgently to his room to assess him. Nursing staff it just changed to the sitter from young female, whom he was threatening, to male sitter with whom he was more calm. I spoke to his on the phone. She was opposed to having Ativan as she felt this disinhibited him too much. She wanted him to have Haldol. I explained I could use Haldol, but then would have to stop the Seroquel that was recommended by Dr. Fish and this would probably functionally end her changes of bring him home. She expressed frustration over the last 3 months while she is been dealing with this alone. She does really want to bring him home, but she is not sure she has the resources to do so. In the end she requested we try a lower dose of Xanax and he was prescribed initially. Since he had 1 mg before, will try 0.5 mg now and see if this helps take the edge off without making him too sleepy. All in all she expressed frustration, but seems to be understanding that "the magic pill" that she is looking for may not exist. General: Reports: ROS Unobtainable (the patient was preoccupied during my visit) Objective Physical Examination General Exam: Positive: Alert, Cooperative (with me, but simultaneously expressing suspicions about Isaac, the [facility] staff, who was sitting with him), Mild Distress (he was sitting on his bed but had very recently been agitated and charging at staff members per nursing report) Eye Exam: Negative: Sclera icteric ENT Exam: Positive: Mucous membr. moist/pink, Tongue Midline Chest Exam: Positive: Clear to auscultation, Normal air movement Heart Exam: Positive: Rate Normal, Regular Rhythm, Normal S1, Normal S2; Negative: Murmurs, Rubs Abdomen Exam: Positive: Normal bowel sounds, Soft; Negative: Tenderness Male Exam: Negative: Discharge (Castro catheter is in place and draining medium yellow urine) Extremity Exam: Negative: Edema Assessment /Plan Problems (1) Vascular dementia Status: Chronic Problem Specific Plan: Consult Specialist, Monitor Clinically Problem Text: He has had an episode of delirium each of the recent days, though they are not always at the same time. His is looking for an oral regimen that will stabilize him so she can take him home. We agreed to try 0.5 mg of alprazolam along with continuing the oral Seroquel 3 times a day per Dr. Fish's recommendation. Review of his out patient record reveals that these episodes have been more frequent since his last hospitalization in July during which he had episodes of altered mental status (that record included the details of a fairly complete workup for altered mental status by neurology). They were initially controlled with 0.5mg oral lorazepam, which the patient and his felt were helping. On September [address] Byrd stopped this medication and started donepezil and a taper up dose of memantine. On October 08 they called the office to report that he was acting odd and more angry. He was leaving the house to drive around to cool off, but he won't tell his where he is going. This concerns many people. They requested permission to stop the donepezil as his wondered if this was a part of the problem. At the same time his was saying that he can't have nothing for the agitation until he is seen again so she requested Xanax. Dr. Byrd prescribed 1mg of alprazolam along with 2mg of risperidone. On 10/15 there was a message saying that he was having hallucinations (before taking any medication), so his gave him 1 mg of alprazolam to help control the symptoms. This made him very lethargic. She rep orted being overwhelmed with trying to provide for his care and also work to support them. He presented to the ER that same evening and was admitted. (2) Acute urinary retention Status: Acute Discussed With: Nurse, Patient, Family with Pt Consent Problem Specific Plan: Monitor Clinically Problem Text: Hx of BPH with retention. Castro catheter in place. One of his fixations when he was agitated and just prior to my coming to the floor was having his Castro removed. He was calmer when I spoke to him, and I reminded him that he needed to have this in because just yesterday he wasn't unable to urinate without. He acknowledges this. I reminded him that if he can't urinate the urine will back up in damage his kidneys which will eventually kill him. He does not want this to happen and so he agrees to have the Castro remained in place for now. (3) Difficulty walking Status: Acute Problem Text: PT once mentation improved. (4) CAD S/P percutaneous coronary angioplasty Status: Chronic (5) HTN (hypertension) Status: Chronic Problem Text: His BP has been reasonably controlled. Continue current regimen, monitor. (6) PVD (peripheral vascular disease) Status: Chronic (7) Diabetes mellitus Status: Chronic Problem Text: His blood sugars remained reasonably well controlled. Continue current regimen. (8) Paroxysmal atrial fibrillation Status: Chronic Problem Text: Rate controlled and sounds regular recently. (9) UTI (urinary tract infection) Status: Resolved Problem Text: On Bactrim DS, Urine culture was without growth, will DC and monitor. (10) Lethargy Status: Resolved Problem Text: 10/19: As long as he stays with small dose of benzodiazapine he doesn't seem to get lethargic, but these do seem to disinhibit him. 10/18: Last night he became agitated and received an additional 1mg of Ativan. Today he is somnolent, but clinically stable. Unfortunately, it is becoming hard to find the correct dose of medication for his behaviors. He has only had one dose of his usual Risperdal at this time. Maybe once he gets more of this in he will mellow a little. If we have another episode like this, I will likely co nsult psychiatry to see if they have suggestions for modification of his pharmacotherapy. 10/17 Per pts , received Xanax 1 mg before admission, pt became lethargic, brought to ED as a result. He is very aggressive again this morning. Refusing meds, verbally abusive to staff and his . Will add Ativan 0.5 mg IV q4h as needed. This may need to be adjusted. 10/16 most likely secondary to Alprazolam use. UTI is a contributing factor. remain on bedrest until mentation improves. consider PT and OOB tomorrow if mentation is improved. Plan/VTE VTE Prophylaxis Ordered?: Yes (TEDS and SCDs plus encourage ambulation) VTE Exclusion Pharmacological: Other (he is on fostamatinib for chronic refractory ITP) Plan Pt and Family Services: Other PFS (may need placement based on recent beh aviors: aggression, having difficulty caring for patient. ) VS, I&O, 24H, Fishbone Vital Signs/I&O Vital Signs Date Time Temp Pulse Resp B/P (MAP) Pulse Ox O2 Delivery O2 Flow Rate FiO2 10/20/19 14:00 99.0 66 17 137/65 (89) 98 10/19/19 14:00 Room Air I&O- Last 24 Hours up to 6 AM 10/20/19 06:00 Intake Total 1410 ml Output Total 1900 ml Balance -490 ml Laboratory Data 24H LABS Laboratory Tests 2 10/19/19 16:38: Bedside Glucose (Misc Panel) 164H 10/19/19 20:45: Bedside Glucose (Misc Panel) 156H 10/20/19 05:24: Nucleated Red Blood Cells % (auto) 0.0, Anion Gap 7L, Glomerular Filtration Rate > 60.0, Calcium Level 9.1 10/20/19 11:56: Bedside Glucose (Misc Panel) 128H CBC/BMP Laboratory Tests 10/20/19 05:24 Microbiology Microbiology 10/15/19 Urine Culture - Final, Complete Geronimo Ferrari MD Oct 20, 2019 4:11 pm
[2019-10-20] MEDS: RAMELTEON 8 MG TAB (ROZEREM) PO SCH (20:49)
[2019-10-20 22:00] VITALS: BP 117/58
[2019-10-21 06:00] VITALS: BP 143/80
[2019-10-21] MEDS: LEVEMIR (INSULIN DETEMIR) 1 UNITS/0.01ML SC SCH ×2 (09:20→21:30)
[2019-10-21] MEDS: ALPRAZolam 0.5 MG TAB PO PRN (09:21)
[2019-10-21] MEDS: BISOPROLOL FUMARATE 10 MG TAB PO SCH (09:21)
[2019-10-21] MEDS: HumaLOG INSULIN (NovoLOG) PER UNIT SC SCH ×4 (09:21→20:25)
[2019-10-21] MEDS: PRAVASTATIN 20 MG TAB PO SCH (09:22)
[2019-10-21] MEDS: PANTOPRAZOLE 40MG TAB (PROTONIX) PO SCH (09:22)
[2019-10-21] MEDS: FINASTERIDE 5 MG TAB PO SCH (09:22)
[2019-10-21] MEDS: POTASSIUM CHLORIDE 10% LIQ 20 MEQ/15 ML UDC PO SCH (09:22)
[2019-10-21] MEDS: CLOPIDOGREL 75 MG TAB PO SCH (09:22)
[2019-10-21] MEDS: levETIRAcetam 250MG TABLET (KEPPRA) PO SCH ×2 (09:23→21:31)
[2019-10-21] MEDS: TAMSULOSIN 0.4 MG CAP PO SCH (09:23)
[2019-10-21] MEDS: MAGNESIUM CHLORIDE 64 MG TABCR (SLO MAG) PO SCH (09:23)
[2019-10-21] MEDS: NICOTINE 21MG/24HR 1 EA TRANSDERMAL TD SCH (09:29)
[2019-10-21] MEDS: TAVALISSE PO SCH ×2 (09:29→21:31)
[2019-10-21] MEDS: NORCO, ANEXSIA 5/325MG TABLET (HYDROcodone/ACETAMINOPHEN) PO PRN (12:06)
[2019-10-21 14:00] VITALS: BP 135/65
--- NOTE | 2019-10-21 18:12 | IPNPDOC ---
Subjective Date Seen The patient was seen on 10/21/19. Subjective Chief Complaint/HPI at baseline MS Constitutional: Denies: Chills Eyes: Reports: Pain; Denies: Vision change ENT: Denies: Head Aches Skin: Denies: Rash Pulmonary: Denies: Dyspnea, Cough Cardiovascular: Denies: Chest Pain, Palpitations Gastrointestinal: Denies: Nausea, Vomiting Genitourinary: Denies: Dysuria Objective Physical Examination General Exam: Positive: Alert, Cooperative (with me, but simultaneously expressing suspicions about Isaac, the [facility] staff, who was sitting with him), Mild Distress (he was sitting on his bed but had very recently been agitated and charging at staff members per nursing report) Eye Exam: Negative: Sclera icteric ENT Exam: Positive: Mucous membr. moist/pink, Tongue Midline Chest Exam: Positive: Clear to auscultation, Normal air movement Heart Exam: Positive: Rate Normal, Regular Rhythm, Normal S1, Normal S2; Negative: Murmurs, Rubs Abdomen Exam: Positive: Normal bowel sounds, Soft; Negative: Tenderness Male Exam: Negative: Discharge (Castro catheter is in place and draining medium yellow urine) Extremity Exam: Negative: Edema Assessment /Plan Problems (1) Acute urinary retention Status: Acute Discussed With: Nurse, Patient, Family with Pt Consent Problem Specific Plan: Monitor Clinically Problem Text: Hx of BPH with retention. Castro catheter in place. 10/15/19 ANA [place] One of his fixations when he was agitated and just prior to my coming to the floor was having his Castro removed. He was calmer when I spoke to him, and I reminded him that he needed to have this in because just yesterday he wasn't unable to urinate without. He acknowledges this. I reminded him that if he can't urinate the urine will back up in damage his kidneys which will eventually kill him. He does not want this to happen and so he agrees to have the Castro remained in place for now. (2) Vascular dementia Status: Chronic Problem Specific Plan: Consult Specialist, Monitor Clinically Problem Text: Stable s oversedation on alpraz 0.5 TID prn He has had an episode of delirium each of the recent days, though they are not always at the same time. His is looking for an oral regimen that will stabilize him so she can take him home. We agreed to try 0.5 mg of alprazolam along with continuing the oral Seroquel 3 times [address] day per [address]. Fish's recommendation. Review of his out patient record reveals that these episodes have been more frequent since his last hospitalization in July during which he had episodes of altered mental status (that record included the details of a fairly complete workup for altered mental status by neurology). They were initially controlled with 0.5mg oral lorazepam, which the patient and his felt were helping. On September 20 Dr. Byrd stopped this medication and started donepezil and a taper up dose of memantine. On October 08 they called the office to report that he was acting odd and more angry. He was leaving the house to drive around to cool off, but he won't tell his where he is going. This concerns many people. They requested permission to stop the donepezil as his wondered if this was a part of the problem. At the same time his was saying that he can't have nothing for the agitation until he is seen again so she re quested Xanax. Dr. Byrd prescribed 1mg of alprazolam along with 2mg of risperidone. On 10/15 there was a message saying that he was having hallucinations (before taking any medication), so his gave him 1 mg of alprazolam to help control the symptoms. This made him very lethargic. She reported being overwhelmed with trying to provide for his care and also work to support them. He presented to the ER that same evening and was admitted. (3) Difficulty walking Status: Acute Problem Text: 10/18 PT safe to dc home (4) CAD S/P percutaneous coronary angioplasty Status: Chronic (5) HTN (hypertension) Status: Chronic Problem Text: His BP has been reasonably controlled. Continue current regimen, monitor. (6) PVD (peripheral vascular disease) Status: Chronic (7) Diabetes mellitus Status: Chronic Problem Text: His blood sugars remained reasonably well controlled. Continue current regimen. (8) Paroxysmal atrial fibrillation Status: Chronic Problem Text: RC biso 10 AP clopid 75 (9) Lethargy Status: Resolved Problem Text: 10/19: As long as he stays with small dose of benzodiazapine he doesn't seem to get lethargic, but these do seem to disinhibit him. 10/18: Last night he became agitated and received an additional 1mg of Ativan. Today he is somnolent, but clinically stable. Unfortunately, it is becoming hard to find the correct dose of medication for his behaviors. He has only had one dose of his usual Risperdal at this time. Maybe once he gets more of this in he will mellow a little. If we have another episode like this, I will likely consult psychiatry to see if they have suggestions for modification of his pharmacotherapy. 10/17 Per pts , received Xanax 1 mg before admission, pt became lethargic, brought to ED as a result. He is very aggressive again this morning. Refusing meds, verbally abusive to staff and his . Will add Ativan 0.5 mg IV q4h as needed. This may need to be adjusted. 10/16 most likely secondary to Alprazolam use. UTI is a contributing factor. remain on bedrest until mentation improves. consider PT and OOB tomorrow if mentation is improved. Plan/VTE VTE Prophylaxis Ordered?: Yes (TEDS and SCDs plus encourage ambulation) VTE Exclusion Pharmacological: Other (he is on fostamatinib for chronic refractory ITP) Plan Pt and Family Services: Other PFS (may need placement based on recent behaviors: aggression, having difficulty caring for patient. ) VS, I&O, 24H, Fishbone Vital Signs/I&O Vital Signs Date Time Temp Pulse Resp B/P (MAP) Pulse Ox O2 Delivery O2 Flow Rate FiO2 10/21/19 14:00 97.8 75 16 135/65 (88) 98 10/19/19 14:00 Room Air I&O- Last 24 Hours up to 6 AM 10/21/19 06:00 Intake Total 770 ml Output Total 1150 ml Balance -380 ml Laboratory Data 24H LABS Laboratory Tests 2 10/20/19 20:24: Bedside Glucose (Misc Panel) 101 10/21/19 06:26: Bedside Glucose (Misc Panel) 175H 10/21/19 11:35: Bedside Glucose (Misc Panel) 144H 10/21/19 16:39: Bedside Glucose (Misc Panel) 196H Microbiology Microbiology 10/15/19 Urine Culture - Final, Complete Cristi Carroll M.D. Oct 21, 2019 18:12
[2019-10-21] MEDS: RAMELTEON 8 MG TAB (ROZEREM) PO SCH (21:30)
[2019-10-21 22:00] VITALS: BP 140/60
[2019-10-22] MEDS: NORCO, ANEXSIA 5/325MG TABLET (HYDROcodone/ACETAMINOPHEN) PO PRN (01:16)
[2019-10-22 06:00] VITALS: BP 140/60
[2019-10-22 06:10] LABS: HEMATOCRIT 31.9 % (42.0-52.0); HEMOGLOBIN 9.6 g/dl (13.5-17.5); MEAN CORPUSCULAR HGB CONC 30.1 g/dl (32.0-36.5); MEAN CORPUSCULAR VOLUME 89.6 fl (80.0-96.0); PLATELET COUNT, AUTOMATED 198 10^3/uL (150-450); RED BLOOD COUNT 3.56 10^6/uL (4.30-6.10); WHITE BLOOD COUNT 4.2 10^3/uL (4.0-10.0)
[2019-10-22 06:29] LABS: ALBUMIN 2.4 GM/DL (3.2-5.2); ALT/SGPT 13 U/L (12-78); BILIRUBIN,TOTAL 0.2 MG/DL (0.2-1.0); BLOOD UREA NITROGEN 14 MG/DL (7-18); CALCIUM LEVEL 8.3 MG/DL (8.8-10.2); CARBON DIOXIDE LEVEL 25 MEQ/L (21-32); CHLORIDE LEVEL 112 MEQ/L (98-107); CREATININE FOR GFR 1.08 MG/DL (0.70-1.30); GLOMERULAR FILTRATION RATE > 60.0 (>42); GLUCOSE, FASTING 138 MG/DL (70-100); POTASSIUM SERUM 3.8 MEQ/L (3.5-5.1); SODIUM LEVEL 143 MEQ/L (136-145); TOTAL PROTEIN 6.3 GM/DL (6.4-8.2)
[2019-10-22] MEDS: TAVALISSE PO SCH ×2 (09:00→09:13)
[2019-10-22] MEDS ORDERED: ACET1TAB55 PO (09:07)
[2019-10-22] MEDS ORDERED: QUET1TAB7 PO (09:07)
[2019-10-22] MEDS ORDERED: ALPR0.5T3 PO (09:07)
[2019-10-22] MEDS ORDERED: FINA5TAB2 PO (09:07)
[2019-10-22] MEDS ORDERED: FLOM0.4C39 PO (09:07)
[2019-10-22 09:13] VITALS: BP 140/60
[2019-10-22] MEDS: TAMSULOSIN 0.4 MG CAP PO SCH (09:13)
[2019-10-22] MEDS: levETIRAcetam 250MG TABLET (KEPPRA) PO SCH (09:13)
[2019-10-22] MEDS: PANTOPRAZOLE 40MG TAB (PROTONIX) PO SCH (09:13)
[2019-10-22] MEDS: PRAVASTATIN 20 MG TAB PO SCH (09:13)
[2019-10-22] MEDS: FINASTERIDE 5 MG TAB PO SCH (09:13)
[2019-10-22] MEDS: MAGNESIUM CHLORIDE 64 MG TABCR (SLO MAG) PO SCH (09:13)
[2019-10-22] MEDS: BISOPROLOL FUMARATE 10 MG TAB PO SCH (09:13)
[2019-10-22] MEDS: CLOPIDOGREL 75 MG TAB PO SCH (09:13)
[2019-10-22] MEDS: HumaLOG INSULIN (NovoLOG) PER UNIT SC SCH (09:14)
[2019-10-22] MEDS: LEVEMIR (INSULIN DETEMIR) 1 UNITS/0.01ML SC SCH (09:14)
[2019-10-22] MEDS: NICOTINE 21MG/24HR 1 EA TRANSDERMAL TD SCH (09:15)
[2019-10-22] MEDS: POTASSIUM CHLORIDE 10% LIQ 20 MEQ/15 ML UDC PO SCH (09:15)
--- NOTE | 2019-10-22 09:39 | DSES ---
DATE OF ADMISSION: 10/17/2019 DATE OF DISCHARGE: 10/22/2019 PRIMARY CARE PROVIDER: Dr. Blaine Byrd. ATTENDING TODAY: Dr. Darell Mensah. HISTORY: This is a 79-year-old male patient who follows with Dr. Byrd in the outpatient setting who presented to [facility] emergency room with lethargy. The patient has a history of vascular dementia after suffering a cerebrovascular accident (CVA) in May, has been agitated every since. Dr. Byrd has been making medication changes to help control the agitation with donepezil, Memantine was subsequently switched over to Xanax. His states that the Xanax you gave him last night knocked him out and he has been sleepy every since. At his baseline, he is able to ambulate with minimal assistance, although since the medication, he has been requiring two-person full assist. Patient, on exam, was somnolent. He was admitted to the hospital for further management and monitoring. EKG and cardiac markers were without abnormalities. He had no focal neurologic deficits. He was noted to have urinary retention and therefore, a Castro catheter was inserted. This has been tried multiple times to remove in the hospital, although the patient again had retention and therefore the Castro was replaced. His Flomax 0.4 mg has been increased to 0.8 and Proscar 5 mg has been added. He will need to followup with urology in the outpatient setting. The patient was thought secondary to the urinary retention to possibly have a urinary tract infection contributing to his lethargy, although urine culture was returned with no growth and therefore, antibiotics were discontinued. Patient was seen by Dr. Fish who made recommendations about medications secondary to the patient's aggressive behaviors and outbursts. At this point, the patient is on Rozerem for sleep, Seroquel twice daily and Xanax 0.5 mg. He seems to be tolerating this well and has been quite pleasant and with controlled behaviors for at least the last 36 hours. I spoke with his this morning, who is eager to get him home. She is with him 24 hours a day unless she is at work 2-3 nights a week for 4-6 hours at which time she has a sitter who comes and stays with him. She has no additional concerns the day prior to his discharge. DISCHARGE DIAGNOSES: Lethargy. Vascular dementia with agitation. Urinary retention. Coronary artery disease. Hypertension. Peripheral vascular disease. Diabetes mellitus type 2. Paroxysmal atrial fibrillation. DISCHARGE MEDICATIONS: - acetaminophen 650 mg every 4 hours as needed for pain or fever. - alprazolam 0.5 mg every 4 hours as needed for anxiety. Maximum daily dose (MDD) of 2 mg. - finasteride 5 mg by mouth daily - Seroquel 12.5 mg by mouth three times a day as needed for agitation. - Flomax 0.8 mg by mouth daily - bisoprolol 10 mg daily - Plavix 75 mg daily - famotidine 40 mg daily - TAVALISSE 150 mg twice a day - hydrocodone/acetaminophen two tablets every 6 hours as needed for pain - Lantus 22 units subcu daily - Keppra 500 mg twice a day - magnesium chloride 64 mg daily - Protonix 40 mg daily - potassium chloride 20 mEq/15 mL, 15 mL by mouth daily - pravastatin 20 mg daily - Rozerem 8 mg by mouth nightly. Gabapentin and furosemide have been discontinued. DISCHARGE PLAN: Followup with Dr. Byrd in 1 week. His activities should be as tolerated. His diet is consistent carbohydrate. He should seen urology within 1-2 weeks.
== END 2019-10-22 12:25 | disposition home or self-care (01) | DRG 884 ==
LOC: EDUNIT# 19:35 → EDBD 19:35 → M ED 19:35 → M ED INP 19:36 → M MSPAV 10-16 00:40 → OBSVTOIN 10-17 11:54
PROVIDERS: ADMIT Internal Medicine; ATTEND Family Medicine
DX: F01.51 Vascular dementia, unspecified severity, with behavioral disturbance (principal); N39.0 Urinary tract infection, site not specified; Z86.73 Personal history of transient ischemic attack (TIA), and cerebral infarction without residual deficits; I11.0 Hypertensive heart disease with heart failure; Z79.899 Other long term (current) drug therapy; E11.51 Type 2 diabetes mellitus with diabetic peripheral angiopathy without gangrene; I48.0 Paroxysmal atrial fibrillation; I25.10 Atherosclerotic heart disease of native coronary artery without angina pectoris; N40.0 Benign prostatic hyperplasia without lower urinary tract symptoms; I35.0 Nonrheumatic aortic (valve) stenosis; I50.9 Heart failure, unspecified; Z95.2 Presence of prosthetic heart valve; R33.9 Retention of urine, unspecified

== ENCOUNTER → 2019-11-01 | Outpatient (CLI) | payer MEDICARE ==
[~2019-11-01] MED LIST changes: +ACET1TAB55 PO; +ALPR0.5T3 PO; -BISO10TA10 PO; +BISO10TA14 PO; -GLIM1TAB2 PO; +GLIM1TAB4 PO; +HYDR-3713 PO; +LEVE250T5 PO; +POTA20EL PO; +PRAV20TA2 PO; +QUET1TAB7 PO; +RISP0.5T3 PO; +ROZE8TAB16 PO
--- NOTE | 2019-11-01 14:20 | REP ---
REASON FOR EXAM: Right rib pain. No priors. The accompanying frontal view of the chest has been compared to the prior chest x-ray of 06/19/2019. The frontal view of the chest is within normal limits and essentially unchanged from the prior exam. There is media sternotomy and there is mild basilar fibrotic change. Four views of the right ribs show no evidence of acute fracture. There are marked chronic changes seen involving the imaged portion of the right shoulder with evidence of soft tissue calcifications and right humeral head lucencies. Abnormalities such as pigmented villonodular synovitis cannot be accurately assessed on this plain film exam. If that is of clinical concern, then I would recommend shoulder MRI. IMPRESSION: No acute right rib changes and no acute findings in the chest as described above. Right shoulder abnormalities and recommendations as described above. Electronically Signed by Shaheed Kline DO 11/01/2019 02:44 P
== END ==
LOC: M CLY 10:15
PROVIDERS: ATTEND Family Medicine
DX: I69.30 Unspecified sequelae of cerebral infarction (principal); R07.81 Pleurodynia
CPT/HCPCS: 71101; G0463

== ENCOUNTER → 2019-12-10 | Outpatient (REF) | payer MEDICARE | LOC: M SFHCCLAY 15:16 | PROVIDERS: ATTEND Family Medicine | DX: N30.01 Acute cystitis with hematuria (principal); L03.115 Cellulitis of right lower limb | CPT/HCPCS: 81002; 87070; 87077; 87088; 87186; 87205; G0463 ==

== ENCOUNTER → 2019-12-18 | Outpatient (REF) | payer MEDICARE ==
[2019-12-18 14:39] LABS: CALCIUM LEVEL 9.4 MG/DL (8.8-10.2); CREATININE FOR GFR 1.44 MG/DL (0.70-1.30); GLOMERULAR FILTRATION RATE 50.4 (>42); POTASSIUM SERUM 3.6 MEQ/L (3.5-5.1)
== END ==
LOC: M SFHCCLAY 13:45
PROVIDERS: ATTEND Family Medicine
DX: E87.6 Hypokalemia (principal)

== ENCOUNTER → 2019-12-27 | Outpatient (REF) | payer MEDICARE ==
[2019-12-27 16:54] LABS: APPEARANCE, URINE TURBID (CLEAR); BACTERIA, URINE AUTO NEGATIVE (NEGATIVE); BILIRUBIN, URINE AUTO NEGATIVE (NEGATIVE); BLOOD, URINE BLOOD NEGATIVE (NEGATIVE); COLOR, URINE YELLOW (YELLOW); GLUCOSE, URINE (UA) AUTO 1+ mg/dL (NEGATIVE); KETONE, URINE AUTO NEGATIVE (NEGATIVE); LEUKOCYTE ESTERASE, URINE AUTO 3+ (NEGATIVE); NITRITE, URINE AUTO NEGATIVE (NEGATIVE); PROTEIN, URINE AUTO NEGATIVE (NEGATIVE); RBC, URINE AUTO 32 /HPF (0-3); SPECIFIC GRAVITY URINE AUTO 1.013 (1.002-1.035); SQUAMOUS EPITHELIAL CELL UR AU 0 /HPF (0-6); UROBILINOGEN, URINE AUTO 0.2 mg/dL (0.0-2.0); WBC, URINE AUTO TNTC /HPF (0-3)
== END ==
LOC: M SHH 16:27
PROVIDERS: ATTEND Family Medicine
DX: N40.1 Benign prostatic hyperplasia with lower urinary tract symptoms (principal)

== ENCOUNTER → 2020-01-13 | Outpatient (REF) | payer MEDICARE ==
[~2020-01-13] MED LIST changes: +CVS10CAP8 PO; +K-TA10TA2 PO
[2020-01-13 15:15] LABS: CALCIUM LEVEL 8.9 MG/DL (8.8-10.2); CREATININE FOR GFR 1.31 MG/DL (0.70-1.30); GLOMERULAR FILTRATION RATE 56.2 (>42); MAGNESIUM LEVEL 1.5 MG/DL (1.8-2.4); POTASSIUM SERUM 3.4 MEQ/L (3.5-5.1)
== END ==
LOC: M LAB REF 14:45
PROVIDERS: ATTEND Family Medicine
DX: E83.42 Hypomagnesemia (principal); E11.40 Type 2 diabetes mellitus with diabetic neuropathy, unspecified

== ENCOUNTER → 2020-01-24 | Outpatient (REF) | payer MEDICARE | LOC: M SFHCCLAY 10:12 | PROVIDERS: ATTEND Family Medicine | DX: N39.0 Urinary tract infection, site not specified (principal); Z53.8 Procedure and treatment not carried out for other reasons ==

== ENCOUNTER → 2020-01-28 | Outpatient (REF) | payer MEDICARE ==
[2020-01-28 17:07] LABS: APPEARANCE, URINE TURBID (CLEAR); BACTERIA, URINE AUTO 2+ (NEGATIVE); BILIRUBIN, URINE AUTO NEGATIVE (NEGATIVE); BLOOD, URINE BLOOD NEGATIVE (NEGATIVE); COLOR, URINE YELLOW (YELLOW); GLUCOSE, URINE (UA) AUTO NEGATIVE (NEGATIVE); KETONE, URINE AUTO NEGATIVE (NEGATIVE); LEUKOCYTE ESTERASE, URINE AUTO 3+ (NEGATIVE); MUCUS, URINE SMALL (NEGATIVE); NITRITE, URINE AUTO NEGATIVE (NEGATIVE); PROTEIN, URINE AUTO 1+ mg/dL (NEGATIVE); RBC, URINE AUTO 6 /HPF (0-3); SPECIFIC GRAVITY URINE AUTO 1.014 (1.002-1.035); SQUAMOUS EPITHELIAL CELL UR AU 2 /HPF (0-6); UROBILINOGEN, URINE AUTO 0.2 mg/dL (0.0-2.0); WBC, URINE AUTO TNTC /HPF (0-3)
== END ==
LOC: M SHH 16:07
PROVIDERS: ATTEND Family Medicine
DX: R30.0 Dysuria (principal)

== ENCOUNTER 2020-02-04 12:10 | Inpatient (IN) | payer MEDICARE ==
[~2020-02-04] VITALS: Ht 180.3 cm; Wt 82.7 kg
[~2020-02-04 12:10] MED LIST changes: +CLOPIDOGREL 75 MG TAB PO SCH
[2020-02-04 12:58] LABS: BASO # 0.1 10^3/uL (0.0-0.2); BASO % 0.6 % (0.0-1.0); EOS # 0.1 10^3/uL (0.0-0.5); EOS % 1.1 % (0.0-3.0); HEMATOCRIT 37.8 % (42.0-52.0); LYMPH # 1.8 10^3/uL (1.5-5.0); LYMPH % 21.1 % (24.0-44.0); MEAN CORPUSCULAR HEMOGLOBIN 27.6 pg (27.0-33.0); MEAN CORPUSCULAR HGB CONC 31.7 g/dl (32.0-36.5); MEAN CORPUSCULAR VOLUME 86.9 fl (80.0-96.0); MONO # 0.9 10^3/uL (0.0-0.8); NEUTROPHILS # 5.8 10^3/uL (1.5-8.5); NEUTROPHILS % 66.9 % (36.0-66.0); RED BLOOD COUNT 4.35 10^6/uL (4.30-6.10); WHITE BLOOD COUNT 8.7 10^3/uL (4.0-10.0)
[2020-02-04] MEDS ORDERED: LIDOCAINE 2% 5ML JELLY UROJET TOP ONE (13:15)
[2020-02-04 13:41] LABS: ALBUMIN 3.1 GM/DL (3.2-5.2); ALT/SGPT 22 U/L (12-78); BILIRUBIN,DIRECT 0.2 MG/DL (0.0-0.2); BILIRUBIN,TOTAL 0.5 MG/DL (0.2-1.0); BLOOD UREA NITROGEN 17 MG/DL (7-18); CALCIUM LEVEL 9.3 MG/DL (8.8-10.2); CARBON DIOXIDE LEVEL 31 MEQ/L (21-32); CHLORIDE LEVEL 104 MEQ/L (98-107); CK-MB VALUE MASS 4.7 NG/ML (<3.6); CPK CREATINE PHOSPHOKINASE 1052 U/L (39-308); CREATININE FOR GFR 1.29 MG/DL (0.70-1.30); GLOMERULAR FILTRATION RATE 57.2 (>42); GLUCOSE, FASTING 193 MG/DL (70-100); MB/CK RELATIVE INDEX 0.45 (< OR =4); SODIUM LEVEL 140 MEQ/L (136-145); TOTAL PROTEIN 6.9 GM/DL (6.4-8.2); TROPONIN I < 0.02 NG/ML (< 0.10)
--- NOTE | 2020-02-04 13:45 | REP ---
CHEST, SINGLE VIEW: Single view of the chest is performed and compared to a prior study of 11/01/2019. There is no acute infiltrate or pulmonary edema. The heart is not significantly enlarged. There is mild calcification of the thoracic aorta. Mediastinal silhouette is unchanged. Multiple sternal wires are present. IMPRESSION: No evidence of acute pulmonary disease. Electronically Signed by Silvio Etienne MD 02/05/2020 09:07 A
[2020-02-04 13:46] LABS: PLATELET COUNT, AUTOMATED 14 10^3/uL (150-450)
[2020-02-04] MEDS ORDERED: VANCOMYCIN HCL 750 MG, VIAL MATE ADAPTER 1 EACH in D5W 250 ML IV ONE (14:00)
[2020-02-04] MEDS ORDERED: VANCOMYCIN HCL 1,000 MG, VIAL MATE ADAPTER 1 EACH in D5W 250 ML IV ONE (14:00)
[2020-02-04] MEDS ORDERED: VANCOMYCIN HCL 1,750 MG in D5W 250 ML IV ONE (14:00)
[2020-02-04] MEDS ORDERED: ALPRAZolam 0.5 MG TAB PO ONE (15:15)
[2020-02-04] MEDS ORDERED: GLUCOSE 4 GM CHEW TABLET PO PRN (15:30)
[2020-02-04] MEDS ORDERED: CEFTAROLINE FOSAMIL 400 MG in D5W MINI-BAG PLUS 50 ML IV SCH (15:30)
[2020-02-04] MEDS ORDERED: DEXTROSE 50% 50 ML SYRINGE IV PRN (15:30)
[2020-02-04] MEDS ORDERED: GLUCAGON FOR INJ 1 MG VIAL (J1610) SC PRN (15:30)
[2020-02-04] MEDS ORDERED: LEVE250T5 PO (15:44)
[2020-02-04] MEDS ORDERED: FINA5TAB2 PO (15:44)
[2020-02-04] MEDS ORDERED: FURO40TA2 PO (15:44)
[2020-02-04] MEDS ORDERED: FLUC100T PO (15:44)
[2020-02-04] MEDS ORDERED: BIMA01SOL OU (15:44)
[2020-02-04] MEDS ORDERED: ALPR0.5T3 PO (15:44)
[2020-02-04] MEDS ORDERED: FLOM0.4C39 PO (15:44)
[2020-02-04 16:48] LABS: INR 1.14; PROTHROMBIN TIME 14.3 SECONDS (11.8-14.0)
[2020-02-04 16:49] LABS: PARTIAL THROMBOPLASTIN TIME 34.4 SECONDS (25.0-38.4)
[2020-02-04 16:51] LABS: D-DIMER QUANT 2366.9 ng/ml (<500)
[2020-02-04 17:00] VITALS: BP 136/51
--- NOTE | 2020-02-04 17:26 | REP ---
HISTORY: Leg ulcer. COMPARISON: None. FINDINGS: No acute fracture or destructive osseous lesion. Degenerative changes seen involving the knee. Electronically Signed by Shaheed Kline DO 02/04/2020 05:53 P
--- NOTE | 2020-02-04 17:26 | HPE ---
DATE OF ADMISSION: 02/04/2020 PRIMARY CARE PROVIDER: Dr. Blaine Byrd CHIEF COMPLAINT: Generalized weakness for 2 days, left lower extremity ulcer with underlying redness and tenderness. HISTORY OF PRESENT ILLNESS: This is a 79-year-old male with a history of idiopathic thrombocytopenic purpura (ITP), moderately differentiated adenocarcinoma of the colon, right hemicolectomy, who receives Romiplostim and followed by Dr. Reddy. The patient's platelet count was thought to be due to adverse effect from a drug Tavalisse. The patient's generalized weakness occurred about 2 days ago when he woke up unable to sit up in bed by himself, usually walks with a cane and walker. He denies any dysuria, but has had some urgency and frequency without fever or chills. He was treated for urinary tract infection (UTI) with antibiotic. According to the patient, this started with a "C," and he developed an allergic reaction. Urine culture grew out yeast-like organism, and he was given Diflucan. He denied any nausea, vomiting, abdominal pain. He has had two episodes of loose stools at home, as well as an initial skin abrasion of the left louise due to running into his walker when he walks and falls down. The patient has had increasing redness, tenderness and swelling of the left lower extremity for the past 2 days and pain when he walks, usually it comes in spurts, about 3 out of 10 when the pain is controlled and about 5 out of 10 when it is uncontrolled. THe patient currently takes hydrocodone for pain, which alleviates the pain entirely. He continues to take all of his home medications, including Plavix, but he has had no unusual bleeding, bright red blood per rectum, melena, or black tarry stools. He has a history of cardiac stenting in the past and aortic valve repair by Dr. Oliva in 2007, along with carotid endarterectomy. At this time, the patient is afebrile, no complaints of chills. He was found to have normal urinalysis. The hospitalist was called to admit for left lower extremity cellulitis, as well as a urinary tract infection (UTI), along with findings of severe thrombocytopenia with a platelet count of 14,000 with no signs of any active bleeding or neurological symptoms. He otherwise denies any changes in diet, weight gain, weight loss. PAST MEDICAL HISTORY: 1. 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 2. Spinal stenosis. 3. KRAS positive colon cancer, status post right hemicolectomy. 4. Diabetes. 5. Benign prostatic hypertrophy (BPH). 6. Idiopathic thrombocytopenic purpura (ITP). 7. Gastrointestinal bleed. 8. Insomnia. 9. Anxiety. 10. Congestive heart failure (CHF) with preserved ejection fraction. 11. AICD with stent. 12. Hyperlipidemia. 13. Peripheral vascular disease. 14. Hypertension with hypertensive heart disease. 15. Urinary tract infection (UTI), as well as yeast in the urine culture. PAST SURGICAL HISTORY: 1. Bone marrow biopsy in 2018. 2. Right hemicolectomy. 3. Carotid endarterectomy 2007. 4. Catheterization with PTCA in 2003, stent placement in right coronary artery times two. 5. Aortic valve repair for aortic stenosis in 2007. 6. Appendectomy. 7. Carpal tunnel release bilaterally in 2001. 8. Left shoulder surgery in 2002. ALLERGIES: PENICILLIN causes swelling, PROCAINE causes difficulty breathing. HOME MEDICATIONS: - Xanax 0.5 mg twice a day - bisoprolol 10 mg daily - Plavix 75 mg daily - famotidine 40 mg daily - finasteride 5 mg daily - fluconazole 100 mg daily - Lasix 40 mg daily - hydrocodone two tablets every 6 hours as needed for pain - Levemir insulin 24 units daily - Keppra 500 mg at night and 250 mg in the morning - magnesium chloride 64 mg twice a day - Protonix 40 mg at night - potassium 10 mEq at night - pravastatin 20 mg daily - risperidone 1 mg twice a day - tamsulosin 0.4 mg daily - Lumigan one drop OU at night - melatonin 10 mg at night REVIEW OF SYSTEMS: As per history of present illness. 12-point system otherwise negative. SOCIAL HISTORY: The patient lives at home. The patient smoked cigarettes, quit October 2019. The patient states that he smoked 1-1/2 packs per day for over 60 years. He uses a cane and walker at home. Lives at home with his spouse. No alcohol use. No recreational drug use. Retired. FAMILY HISTORY: Father from cancer and cardiac disease. Mother from cardiac disease. Five brothers and two sons and five daughter. Two brothers with cardiac issues. Another brother of lung cancer. Another with colon cancer. PHYSICAL EXAMINATION: VITAL SIGNS: Temperature 97.9, pulse 74, respiratory rate 18, blood pressure 115/57, 99% on room air. GENERAL: The patient is disoriented, only awake, alert and oriented to himself. Face is symmetric. Tongue is midline. Dry mucous membranes. No jugular venous distention (JVD) or thyromegaly. LUNGS: Clear to auscultation. No wheezing or rales. HEART: S1, S2. Sinus rhythm. 3/6 systolic murmur in the right sternal border. No history S3 or S4. There is slight displacement of the point of maximum impulse (PMI). ABDOMEN: Soft, nontender, nondistended. Positive bowel sounds. EXTREMITIES: The patient has chronic venous stasis changes in the right lower extremity. Left has 10cm skin tear on the louise with some erythema, tenderness, and 1+ edema. LABORATORY DATA: White count 8.7, hemoglobin 12, hematocrit 37, previous hemoglobin 11, hematocrit 35, platelet count 14,000, previous platelet count of 107, neutrophils 66, lymphocytes 21. Sodium 140, potassium 4, chloride 104, bicarbonate 31, BUN 17, creatinine 1.29, glucose of 193. Lactic acid of 3.2, calcium 9.3, magnesium 2, total bilirubin 0.5, direct bilirubin 0.2, AST 44, ALT 22, alkaline phosphatase 92, total CK 1052, MB fraction 4.7, troponin less than 0.02. Urine culture on 01/28/2020 showed yeast-like organism. Right leg coag negative Staphylococcus in November. Previous urine culture on 12/10/2019 with Proteus, resistant to ampicillin, nitrofurantoin, tigecycline and sensitive to ceftriaxone. IMAGING STUDIES: Chest x-ray showed no acute disease. Heart is not enlarged. Mild calcification of thoracic aorta. Mediastinal silhouette is unchanged. Multiple sternal wires are present. ASSESSMENT AND PLAN: This is a 79-year-old male with a history of CVA with multi infarct dementia, hypertension, aortic stenosis, status post cardiac stent, aortic valve replacement, gastrointestinal bleed, colon cancer with mucinous features, idiopathic thrombocytopenic purpura (ITP), spinal stenosis, hyperlipidemia, endocarditis with septic emboli in 2019, stent to the right coronary artery, coronary artery disease, carotid endarterectomy, peripheral vascular disease with recurrent urinary tract infection (UTI), cellulitis of the lower extremity and type 2 diabetes who presents with 2-day history of generalized weakness and was found to have a urinary tract infection, abrasion of the right lower extremity with cellulitis and severe thrombocytopenia from idiopathic thrombocytopenic purpura (ITP). CURRENT ISSUES: 1. Urinary tract infection (UTI), currently on ceftaroline. The patient is continued on Diflucan for yeast in the urine. Await urine culture results. 2. Right lower extremity cellulitis. The patient has a skin tear and will need wound care. Physical therapy (PT) has been consulted. The patient has received intravenous vancomycin but due to two episodes of loose stools, we will check for Clostridium (C.) difficile PCR and Bacid will be given, one tablets with meals and at hour of sleep. 3. idiopathic thrombocytopenic purpura (ITP). No signs of active bleeding. According to family, at baseline mentation. Dr. Reddy has been consulted for further management. Monitor for mental status changes, as well as signs of bleeding. In light of acute infection, I have recommended IVIg and steroids, but refused until Dr. Reddy sees the patient. Consent could not be obtained for IVIg infusion. Pt's refused steroids. 4. History of benign prostatic hypertrophy (BPH). On Flomax, Proscar. 5. History of CVA and multi infarct dementia. Requiring a sitter, per RN at the bedside. 6. Type 2 diabetes. On consistent carbohydrate diet, insulin sliding scale. Check A1/c in the morning. 7. Deep vein thrombosis (DVT) prophylaxis. Compression stocking on the right lower extremity. Hold off on Lovenox or heparin for now. 8. Hyperlipidemia. On chronic pravastatin. CODE STATUS: The patient is DO NOT RESUSCITATE, trial of intubation. Late Entry Addendum 6:21pm: unable to reach the for IVIG consent. She refused steroids earlier this afternoon, and wanted the patient to be seen by Dr. Reddy first. [phone] contact number-left message to call [address] [place] [address] -Dr. Reddy called back and recommended IVIg and steroids to be given, and will see the patient this evening. I have encouraged him to call the patient's , in light of her refusal to give consent earlier. [facility]
[2020-02-04] MEDS: NS 1,000 ML IV SCH (17:45)
[2020-02-04] MEDS ORDERED: IMMUNE GLOBULIN 10% 0 GM in IV 1 EA IV SCH (18:00)
[2020-02-04] MEDS: FLUCONAZOLE 100 MG TAB PO SCH (18:21)
[2020-02-04] MEDS: LACTOBACILLUS ACIDOPHILUS CAP (BACID) PO SCH ×2 (18:21→21:14)
[2020-02-04] MEDS: bisoproloL fumarate 10 MG TAB PO SCH (18:21)
[2020-02-04] MEDS: CEFTAROLINE FOSAMIL 600 MG in D5W MINI-BAG PLUS 50 ML IV SCH (18:43)
[2020-02-04] MEDS: HumaLOG INSULIN (NovoLOG) PER UNIT SC SCH ×2 (18:44→21:00)
[2020-02-04] MEDS ORDERED: IMMUNE GLOBULIN 10% 80 GM in IV 1 EA IV ONE (19:00)
--- NOTE | 2020-02-04 20:15 | ECGEPIP ---
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
--- NOTE | 2020-02-04 20:50 | CR ---
DATE OF CONSULTATION: 02/04/2020 INDICATION FOR CONSULTATION: Profound thrombocytopenia. IDENTIFICATION AND CHIEF COMPLAINT: Augie Samano is a 79-year-old gentleman with a history of chronic immune thrombocytopenic purpura, seen at the request of Josephine Perez M.D., for management recommendations regarding recurrent thrombocytopenia in the setting of cellulitis. The patient reports "I feel okay." HISTORY OF PRESENT ILLNESS: Augie Samano is a 79-year-old gentleman with a history of present illness that dates to June 2018, when he presented with rectal bleeding. He was found to have severe thrombocytopenia, and was initially treated using prednisone and intravenous immunoglobulin with subsequent normalization of the platelet count. This response documented immune thrombocytopenia. The patient relapsed after taper of corticosteroids over the course of the following month. Bone marrow biopsy and aspirate was performed in 07/05/2018, and this showed active trilinear hematopoiesis with increased numbers of megakaryocytes, consistent with peripheral destruction of platelets. At the time, the patient underwent colonoscopy to evaluate the rectal bleeding, with findings of moderately differentiated adenocarcinoma of the colon with mucinous features, in the ascending colon. He subsequently underwent right hemicolectomy under the care of Dr. Carvalho at [facility], with findings of stage I disease, [id number]. Multiple colonic polyps were identified, including tubulovillous adenomas, without high-grade dysplasia; these were excised. Mr. aSmano subsequently came under the care of Geeta Zimmer M.D. and Ange Lamb M.D. in the Medical Oncology practice. He was placed on the oral SYK tyrosine kinase inhibitor Tavalisse, and tolerated this well. However, he had obtained this medication through a director financial services program, which in November 2019. Treatment was therefore changed to weekly romiplostim. Two days prior to this admission, the patient's noted that Mr. Samano had become profoundly lethargic over the course of 2 days, and was somnolent and difficult to arouse from sleep. This was accompanied by development of lower extremity swelling and redness. Urinary frequency was also noted. He was treated empirically using an oral antimicrobial but developed an allergic reaction. A recent urine specimen reportedly showed a yeastlike organism, and he was treated using fluconazole. Lower extremity redness, tenderness, and swelling worsened, and the patient's had him brought to the emergency department at [facility] earlier today, on 02/04/2020. Complete blood count showed thrombocytopenia, with platelet count of 14,000 per microliter, and the patient was admitted for management. He is aware of no active bleeding in the past week but on exam is not oriented to time or place. He reports feeling well at this time, although he is speaking in monosyllables and phrases rather than complete sentences. ALLERGIES: The patient has history of allergies to PROCAINE and to PENICILLINS. MEDICATIONS IN HOSPITAL: - famotidine 20 mg daily - Keppra 250 mg by mouth every morning - tamsulosin 0.4 mg by mouth daily - finasteride 5 mg by mouth daily - risperidone 1 mg by mouth at bedtime - pravastatin 20 mg by mouth at bedtime - pantoprazole 40 mg by mouth at bedtime - potassium chloride 10 mEq by mouth at bedtime - Levemir insulin 22 units subcutaneously every evening - insulin lispro on sliding scale - magnesium chloride 64 mg by mouth twice a day - ceftaroline 600 mg intravenous (IV) every 12 hours - hydrocodone/acetaminophen two tablets by mouth every 4 hours prn pain - fluconazole 100 mg by mouth daily PAST MEDICAL HISTORY: Mr. Samano has a longstanding history of hypertension, as well as non-insulin dependent diabetes mellitus. These, in turn, have been complicated by organic heart disease, with atherosclerotic coronary artery disease, and placement of coronary artery stents. There is a history of aortic valve disease with stenosis, for which he underwent porcine valve replacement in 2007. Heart disease has been complicated by congestive heart failure syndrome in the past. The patient has gastroesophageal reflux disease, and a history of adenocarcinoma of the colon, stage I, as noted above, status post resection only. There is history of spinal stenosis, which impairs his mobility. There is a history of appendicitis at the age of 12, for which he underwent appendectomy, and the patient underwent additional abdominal surgery in . There is history of carpal tunnel syndrome with carpal tunnel release surgery bilaterally in the year 2001, and history of degenerative joint disease and injury of the shoulder with left shoulder surgery in 2002. There is history of atherosclerotic vascular disease of the brain, and the patient underwent carotid endarterectomy in 2007. SOCIAL HISTORY: Tobacco: The patient has smoked one-half to two-thirds pack per day in recent years but reports having quit approximately 5 months ago. Alcohol: There is history of alcohol use in the past but none recently. Illicit drugs: No history of illicit drug use. FAMILY HISTORY: The patient's father from complications of organic heart disease and malignancy. The patient's mother from organic heart disease. One brother of lung cancer, and another brother had colon cancer. REVIEW OF SYSTEMS: NEUROLOGIC: History of atherosclerotic cerebrovascular disease. No seizures at this time. No focal neurologic deficits. The patient does have spinal stenosis with back pain and leg discomfort exacerbated by walking. RESPIRATORY: No history of tuberculosis. No cough. No shortness of breath at rest. No chest pain. No hemoptysis. CARDIAC: History of organic heart disease with congestive heart failure syndrome in the past. No exertional chest pressure. No palpitations. The patient has chronic lower extremity edema. GASTROINTESTINAL: History of colon cancer. No recent jaundice. No vomiting. No nausea. No abdominal pain. The patient did have loose stools over the past week. GENITOURINARY: History of urinary hesitancy. No recent hematuria. No history of nephrolithiases. CONSTITUTIONAL: The patient has been somnolent over the past several days as noted above. No significant change in weight. No documented fevers, chills, or sweats. The remainder of review of systems was obtained was negative. PHYSICAL EXAMINATION: The patient is a well-developed, well-nourished gentleman, awake, alert, but oriented only to self in no acute distress and pleasant in demeanor. Temperature 97.8, pulse 71, respirations 19, blood pressure 136/51, oxygen saturation 97% on room air. SKIN: Full turgor. Anicteric. There is erythema of both distal legs, with chronic venous stasis changes. The left leg has an abrasion with tenderness. HEENT: Normocephalic, atraumatic. Pupils round and reactive. Extra muscles intact. Sclerae anicteric. Oropharynx without lesions. No petechiae noted. Edentulous. NECK: Supple without thyromegaly. LYMPHATICS: No pathologic lymphadenopathy noted. CARDIAC: Regular rhythm. Point of maximal impulse displaced laterally, S1, S2, with a 3/6 systolic murmur at the upper sternal borders. No S3, no S4, and no rub appreciated. ABDOMEN: Active bowel sounds, soft, nontender without appreciable organomegaly. No guarding or rebound elicited. RECTAL: Deferred. EXTREMITIES: Brawny edema 1+ of lower extremities with erythema, with abrasion of the left lower extremity. NEUROLOGIC: Mental status remarkable for the patient being unable to identify the date and location. Cranial nerves grossly intact. Motor and sensory grossly intact. LABORATORY DATA: Laboratory studies dated 02/04/2020 include the following: White blood count 8700 per microliter, hemoglobin 12 grams per deciliter, hematocrit 37.8%, platelet count 14,000. BUN 17, creatinine 1.29 mg per deciliter, glucose 193 mg per deciliter. Lactate elevated at 3.2 micro mole per liter. Total bilirubin 0.5 mg per deciliter, albumin 3.1 grams per deciliter. lood cultures and urine culture pending at this time. Urinalysis shows 3+ leukocyte esterase with white blood cells too many to count, urine protein 1+. IMPRESSION: 1. Thrombocytopenia. The patient has chronic immune thrombocytopenic purpura with severe thrombocytopenia at this time. Although he is not bleeding, he has an open wound and is at risk for bleeding complications. Intervention is certainly required for this problem. The patient and his family are reluctant to use corticosteroids due to complications in the past. He has responded well to intravenous immunoglobulin previously, although the volume and solute load from IVIG can potentially precipitate congestive heart failure syndrome. Thus, intravenous immunoglobulin will need to be given relatively slowly. The patient responds to romiplostim, but this is difficult to administer as an inpatient logistically. 2. Cellulitis. The patient clinically has cellulitis and has been started on empiric antimicrobial therapy. Infection often exacerbates flares of immune thrombocytopenic purpura, and the current infection may be contributing to the depth of thrombocytopenia. 3. Urinary tract infection. The patient has an overt urinary tract infection and, again, is receiving antimicrobial therapy. RECOMMENDATIONS: It was recommended the patient begin intravenous immunoglobulin 20 grams intravenously daily, administered daily until the platelet count is above 30,000 per microliter. Once the patient is discharged from hospital, he should resume romiplostim injections. If it is not feasible for him to come to the hospital clinic for romiplostim injections, treatment can be changed to the oral agent eltrombopag. Management recommendations were discussed by telephone with Dr. Perez at the time of consultation. Additional management recommendations will be forthcoming based on the patient's clinical status as it evolves.
[2020-02-04] MEDS ORDERED: LEVEMIR (INSULIN DETEMIR) 1 UNITS/0.01ML SC SCH (21:00)
[2020-02-04] MEDS ORDERED: risperiDONE 1 MG TAB PO SCH (21:00)
[2020-02-04] MEDS ORDERED: levETIRAcetam 250MG TABLET (KEPPRA) PO SCH (21:00)
[2020-02-04] MEDS: risperiDONE 1 MG TAB PO SCH (21:14)
[2020-02-04] MEDS: MAGNESIUM CHLORIDE 64 MG TABCR (SLO MAG) PO SCH (21:14)
[2020-02-04] MEDS: FINASTERIDE 5 MG TAB PO SCH (21:14)
[2020-02-04] MEDS: POTASSIUM CHLORIDE 10 MEQ SR TABLET PO SCH (21:15)
[2020-02-04] MEDS: PRAVASTATIN 20 MG TAB PO SCH (21:15)
[2020-02-04] MEDS: PANTOPRAZOLE 40MG TAB (PROTONIX) PO SCH (21:15)
[2020-02-04] MEDS: levETIRAcetam 250MG TABLET (KEPPRA) PO SCH (21:15)
[2020-02-04 21:27] LABS: INR 1.21
[2020-02-04 21:28] LABS: PARTIAL THROMBOPLASTIN TIME 35.5 SECONDS (25.0-38.4)
[2020-02-04 21:31] LABS: D-DIMER QUANT 2342.97 ng/ml (<500)
[2020-02-04 21:45] VITALS: BP 126/56
[2020-02-04 22:00] VITALS: BP 136/80
[2020-02-04 22:15] VITALS: BP 123/57
[2020-02-04] MEDS: ALPRAZolam 0.5 MG TAB PO PRN (22:15)
[2020-02-04 22:45] VITALS: BP 150/56
[2020-02-04 23:15] VITALS: BP 133/85
[2020-02-05 03:40] VITALS: BP 137/52
[2020-02-05] MEDS: CEFTAROLINE FOSAMIL 600 MG in D5W MINI-BAG PLUS 50 ML IV SCH ×2 (05:42→17:25)
[2020-02-05 06:00] VITALS: BP 132/82
[2020-02-05] MEDS: HumaLOG INSULIN (NovoLOG) PER UNIT SC SCH ×4 (07:30→21:00)
[2020-02-05] MEDS: LACTOBACILLUS ACIDOPHILUS CAP (BACID) PO SCH ×5 (08:00→22:33)
[2020-02-05 08:33] LABS: BASO % 0.4 % (0.0-1.0); EOS # 0.1 10^3/uL (0.0-0.5); EOS % 2.2 % (0.0-3.0); HEMATOCRIT 31.3 % (42.0-52.0); HEMOGLOBIN 9.8 g/dl (13.5-17.5); LYMPH # 0.9 10^3/uL (1.5-5.0); LYMPH % 16.8 % (24.0-44.0); MEAN CORPUSCULAR HEMOGLOBIN 27.3 pg (27.0-33.0); MEAN CORPUSCULAR HGB CONC 31.3 g/dl (32.0-36.5); MEAN CORPUSCULAR VOLUME 87.2 fl (80.0-96.0); MONO # 0.9 10^3/uL (0.0-0.8); MONO % 15.6 % (0.0-5.0); NEUTROPHILS # 3.6 10^3/uL (1.5-8.5); NEUTROPHILS % 64.6 % (36.0-66.0); RED BLOOD COUNT 3.59 10^6/uL (4.30-6.10); WHITE BLOOD COUNT 5.5 10^3/uL (4.0-10.0)
[2020-02-05 08:36] LABS: PLATELET COUNT, AUTOMATED 10 10^3/uL (150-450)
[2020-02-05 08:46] LABS: BLOOD UREA NITROGEN 16 MG/DL (7-18); CARBON DIOXIDE LEVEL 29 MEQ/L (21-32); CHLORIDE LEVEL 109 MEQ/L (98-107); CREATININE FOR GFR 1.03 MG/DL (0.70-1.30); GLOMERULAR FILTRATION RATE > 60.0 (>42); GLUCOSE, FASTING 98 MG/DL (70-100); POTASSIUM SERUM 3.6 MEQ/L (3.5-5.1); SODIUM LEVEL 140 MEQ/L (136-145)
[2020-02-05] MEDS ORDERED: TAMSULOSIN 0.4 MG CAP PO SCH (09:00)
[2020-02-05] MEDS: NS 1,000 ML IV SCH (09:57)
[2020-02-05] MEDS: MAGNESIUM CHLORIDE 64 MG TABCR (SLO MAG) PO SCH ×3 (10:10→22:32)
[2020-02-05] MEDS: risperiDONE 1 MG TAB PO SCH ×3 (10:10→22:32)
[2020-02-05] MEDS: FLUCONAZOLE 100 MG TAB PO SCH (10:10)
[2020-02-05] MEDS: TAMSULOSIN 0.4 MG CAP PO SCH (10:10)
[2020-02-05] MEDS: FAMOTIDINE 20 MG TAB PO SCH (10:10)
[2020-02-05] MEDS: bisoproloL fumarate 10 MG TAB PO SCH (10:10)
[2020-02-05] MEDS: levETIRAcetam 250MG TABLET (KEPPRA) PO SCH ×3 (10:10→22:34)
[2020-02-05] MEDS: ALPRAZolam 0.5 MG TAB PO PRN ×2 (11:28→22:34)
[2020-02-05] MEDS ORDERED: IMMUNE GLOBULIN 10% 0 GM in IV 1 EA IV SCH (11:45)
--- NOTE | 2020-02-05 12:49 | IPN ---
DATE OF SERVICE: 02/05/2020 Augie is seen in [address] [place] [address]. He has dementia with behavioral disturbance, as well as a host of medical problems. The most pressing at this point being chronic immune thrombocytopenic purpura. He was seen by Dr. Reddy from [facility]. Appreciate his thorough consultation. He advises using intravenous immunoglobulin, as the patient's family is declining steroids. Also having a cellulitis which is being treated. The plan was to have intravenous immunoglobulin 20 grams intravenous daily until platelet count is over 30,000 (today it is 10) and after discharge restart his romiplostim injections which we cannot give in the hospital. PHYSICAL EXAMINATION: 144/82, pulse is 76. General appearance: He looks much less cushingoid than the last time I saw him. He is alert. He recognizes me. Answers questions appropriately, though his content is vague and lacks content. Lungs clear. Heart: Regular rate and rhythm. Abdomen: Soft, nontender. Trace peripheral edema. LABORATORIES: White count 5.5, hemoglobin 9.8, platelets are 10. Sodium 144, potassium 3.6, BUN 16, creatinine 1.0, glucose 98. IMPRESSION: 1. Chronic immune thrombocytopenic purpura. Continue his IVIg daily until platelet count is over 300. The family is refusing steroids. 2. Behavioral disturbance. He has Risperdal and Ativan ordered, but the family is refusing to have that given to him. If his behavior disturbance puts staff at risk, will need to revisit that decision. 3. Diabetes. I am reducing of his detemir insulin. Typically, he needs much less insulin in the hospital on an enforced diabetic diet. 4. Seizure disorder. Continue his current dose of Keppra. 5. Benign prostatic hypertrophy (BPH). At risk of urinary obstruction, particularly while at bedrest. Continue Proscar and tamsulosin. 6. History of diastolic congestive heart failure. Will stop the saline he is receiving. Watch his volume status with immunoglobulin. 7. Cellulitis. Continue ceftaroline 600 mg every 12 hours. I am waiting to meet with family today. It helps to keep them in the loop on plans. ADDENDUM: Bruno from pharmacy verified with Dr. Reddy the IVIG regimen, which is actually a single 80 gram dose given yesterday with no plans for repeat dose today. Therefore, we will be departing from the dictated recommendation of intravenous immunoglobulin 20 grams daily until platelet counts over 30,000 per Bruno's discussion with Dr. Reddy. I did have a telephone call with the patient's , Vida today so we did get a change to communicate. Edited [facility] 02/05/2020 at 1241
[2020-02-05] MEDS ORDERED: IMMUNE GLOBULIN 10% 80 GM in IV 1 EA IV ONE (19:00)
[2020-02-05] MEDS: FINASTERIDE 5 MG TAB PO SCH ×2 (21:00→22:32)
[2020-02-05] MEDS: POTASSIUM CHLORIDE 10 MEQ SR TABLET PO SCH ×2 (21:00→22:34)
[2020-02-05] MEDS: PRAVASTATIN 20 MG TAB PO SCH ×2 (21:00→22:33)
[2020-02-05] MEDS: PANTOPRAZOLE 40MG TAB (PROTONIX) PO SCH ×2 (21:00→22:33)
[2020-02-05] MEDS: LEVEMIR (INSULIN DETEMIR) 1 UNITS/0.01ML SC SCH (21:00)
[2020-02-06] MEDS: CEFTAROLINE FOSAMIL 600 MG in D5W MINI-BAG PLUS 50 ML IV SCH ×2 (05:06→17:02)
[2020-02-06 06:00] VITALS: BP 124/51
[2020-02-06 06:17] LABS: BASO % 0.9 % (0.0-1.0); EOS # 0.1 10^3/uL (0.0-0.5); EOS % 1.9 % (0.0-3.0); HEMATOCRIT 29.6 % (42.0-52.0); HEMOGLOBIN 9.4 g/dl (13.5-17.5); LYMPH # 0.9 10^3/uL (1.5-5.0); LYMPH % 20.1 % (24.0-44.0); MEAN CORPUSCULAR HEMOGLOBIN 27.6 pg (27.0-33.0); MEAN CORPUSCULAR HGB CONC 31.8 g/dl (32.0-36.5); MEAN CORPUSCULAR VOLUME 86.8 fl (80.0-96.0); MONO # 0.5 10^3/uL (0.0-0.8); MONO % 11.7 % (0.0-5.0); NEUTROPHILS % 65.2 % (36.0-66.0); RED BLOOD COUNT 3.41 10^6/uL (4.30-6.10); WHITE BLOOD COUNT 4.6 10^3/uL (4.0-10.0)
[2020-02-06 06:19] LABS: PLATELET COUNT, AUTOMATED 18 10^3/uL (150-450)
[2020-02-06 06:34] LABS: BLOOD UREA NITROGEN 14 MG/DL (7-18); CALCIUM LEVEL 8.7 MG/DL (8.8-10.2); CARBON DIOXIDE LEVEL 25 MEQ/L (21-32); CHLORIDE LEVEL 110 MEQ/L (98-107); CREATININE FOR GFR 0.96 MG/DL (0.70-1.30); GLOMERULAR FILTRATION RATE > 60.0 (>42); GLUCOSE, FASTING 117 MG/DL (70-100); POTASSIUM SERUM 3.5 MEQ/L (3.5-5.1); SODIUM LEVEL 140 MEQ/L (136-145)
[2020-02-06] MEDS: HumaLOG INSULIN (NovoLOG) PER UNIT SC SCH ×4 (07:30→20:39)
[2020-02-06] MEDS: LACTOBACILLUS ACIDOPHILUS CAP (BACID) PO SCH ×5 (08:00→20:15)
[2020-02-06] MEDS: levETIRAcetam 250MG TABLET (KEPPRA) PO SCH ×2 (09:00→19:59)
[2020-02-06] MEDS: TAMSULOSIN 0.4 MG CAP PO SCH (09:00)
[2020-02-06] MEDS: FAMOTIDINE 20 MG TAB PO SCH (09:00)
[2020-02-06] MEDS: risperiDONE 1 MG TAB PO SCH ×2 (09:00→20:00)
[2020-02-06] MEDS: FLUCONAZOLE 100 MG TAB PO SCH (09:00)
[2020-02-06] MEDS: bisoproloL fumarate 10 MG TAB PO SCH (09:00)
[2020-02-06] MEDS: MAGNESIUM CHLORIDE 64 MG TABCR (SLO MAG) PO SCH ×3 (09:00→20:16)
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
[2020-02-06] MEDS: KCL 20MEQ IN 0.45NS 1000ML 1,000 ML IV SCH (15:50)
[2020-02-06] MEDS: FLUCONAZOLE 200 MG in IV 1 EA IV SCH (15:50)
[2020-02-06] MEDS: PANTOPRAZOLE 40MG TAB (PROTONIX) PO SCH ×2 (19:59→20:15)
[2020-02-06] MEDS: FINASTERIDE 5 MG TAB PO SCH (19:59)
[2020-02-06] MEDS: PRAVASTATIN 20 MG TAB PO SCH (19:59)
[2020-02-06] MEDS: POTASSIUM CHLORIDE 10 MEQ SR TABLET PO SCH ×2 (20:00→20:15)
[2020-02-06] MEDS: LEVEMIR (INSULIN DETEMIR) 1 UNITS/0.01ML SC SCH (20:39)
[2020-02-06] MEDS: NORCO, ANEXSIA 5/325MG TABLET (HYDROcodone/ACETAMINOPHEN) PO PRN (21:42)
[2020-02-06 22:00] VITALS: BP 147/59
[2020-02-07] MEDS: KCL 20MEQ IN 0.45NS 1000ML 1,000 ML IV SCH ×2 (02:55→17:22)
[2020-02-07] MEDS: CEFTAROLINE FOSAMIL 600 MG in D5W MINI-BAG PLUS 50 ML IV SCH ×2 (04:44→17:21)
[2020-02-07 05:56] LABS: BASO % 1.1 % (0.0-1.0); EOS # 0.1 10^3/uL (0.0-0.5); EOS % 2.7 % (0.0-3.0); HEMATOCRIT 29.4 % (42.0-52.0); HEMOGLOBIN 9.5 g/dl (13.5-17.5); MEAN CORPUSCULAR HEMOGLOBIN 28.1 pg (27.0-33.0); MEAN CORPUSCULAR HGB CONC 32.3 g/dl (32.0-36.5); MONO # 0.5 10^3/uL (0.0-0.8); MONO % 14.2 % (0.0-5.0); NEUTROPHILS % 54.5 % (36.0-66.0); RED BLOOD COUNT 3.38 10^6/uL (4.30-6.10); WHITE BLOOD COUNT 3.7 10^3/uL (4.0-10.0)
[2020-02-07 05:57] LABS: PLATELET COUNT, AUTOMATED 41 10^3/uL (150-450)
[2020-02-07 06:00] VITALS: BP 127/62
[2020-02-07 06:17] LABS: BLOOD UREA NITROGEN 13 MG/DL (7-18); C REACTIVE PROTEIN QUANTITATIV 7.17 MG/DL (0.00-0.30); CALCIUM LEVEL 8.6 MG/DL (8.8-10.2); CARBON DIOXIDE LEVEL 25 MEQ/L (21-32); CHLORIDE LEVEL 110 MEQ/L (98-107); CREATININE FOR GFR 0.98 MG/DL (0.70-1.30); GLOMERULAR FILTRATION RATE > 60.0 (>42); GLUCOSE, FASTING 115 MG/DL (70-100); POTASSIUM SERUM 3.7 MEQ/L (3.5-5.1); SODIUM LEVEL 139 MEQ/L (136-145)
[2020-02-07 06:19] LABS: ERYTHROCYTE SEDIMENTATION RATE 71 mm/hr (0-20)
[2020-02-07] MEDS: HumaLOG INSULIN (NovoLOG) PER UNIT SC SCH ×5 (07:30→21:00)
[2020-02-07] MEDS: LACTOBACILLUS ACIDOPHILUS CAP (BACID) PO SCH ×6 (08:00→21:42)
[2020-02-07] MEDS: risperiDONE 1 MG TAB PO SCH ×3 (09:00→21:41)
[2020-02-07] MEDS: levETIRAcetam 250MG TABLET (KEPPRA) PO SCH ×3 (09:00→21:40)
[2020-02-07] MEDS: TAMSULOSIN 0.4 MG CAP PO SCH ×2 (09:00→14:18)
[2020-02-07] MEDS: bisoproloL fumarate 10 MG TAB PO SCH ×2 (09:00→14:17)
[2020-02-07] MEDS: MAGNESIUM CHLORIDE 64 MG TABCR (SLO MAG) PO SCH ×2 (09:00→21:56)
[2020-02-07] MEDS: FAMOTIDINE 20 MG TAB PO SCH ×2 (09:00→14:17)
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
[2020-02-07 14:00] VITALS: BP 151/64
[2020-02-07] MEDS: FLUCONAZOLE 200 MG in IV 1 EA IV SCH (15:49)
[2020-02-07] MEDS: ACETAMINOPHEN TAB 650MG DOSE (2X325MG) PO PRN (21:39)
[2020-02-07] MEDS: PANTOPRAZOLE 40MG TAB (PROTONIX) PO SCH (21:41)
[2020-02-07] MEDS: PRAVASTATIN 20 MG TAB PO SCH (21:41)
[2020-02-07] MEDS: FINASTERIDE 5 MG TAB PO SCH (21:41)
[2020-02-07] MEDS: LEVEMIR (INSULIN DETEMIR) 1 UNITS/0.01ML SC SCH (21:52)
[2020-02-07] MEDS: POTASSIUM CHLORIDE 10 MEQ SR TABLET PO SCH (21:57)
[2020-02-07 22:00] VITALS: BP 150/63
[2020-02-07] MEDS: NORCO, ANEXSIA 5/325MG TABLET (HYDROcodone/ACETAMINOPHEN) PO PRN (23:32)
[2020-02-08] MEDS: HALOPERIDOL 5 MG/ML VIAL (J1630) IM PRN ×2 (00:17→14:51)
[2020-02-08] MEDS: CEFTAROLINE FOSAMIL 600 MG in D5W MINI-BAG PLUS 50 ML IV SCH ×2 (05:59→17:55)
[2020-02-08] MEDS: KCL 20MEQ IN 0.45NS 1000ML 1,000 ML IV SCH ×2 (05:59→21:46)
[2020-02-08 06:00] VITALS: BP 156/66
[2020-02-08 06:35] LABS: BASO % 0.7 % (0.0-1.0); EOS # 0.1 10^3/uL (0.0-0.5); EOS % 3.2 % (0.0-3.0); HEMATOCRIT 31.4 % (42.0-52.0); LYMPH # 1.1 10^3/uL (1.5-5.0); LYMPH % 27.7 % (24.0-44.0); MEAN CORPUSCULAR HEMOGLOBIN 27.3 pg (27.0-33.0); MEAN CORPUSCULAR HGB CONC 31.8 g/dl (32.0-36.5); MEAN CORPUSCULAR VOLUME 85.8 fl (80.0-96.0); MONO # 0.7 10^3/uL (0.0-0.8); MONO % 17.6 % (0.0-5.0); NEUTROPHILS % 50.6 % (36.0-66.0); RED BLOOD COUNT 3.66 10^6/uL (4.30-6.10)
[2020-02-08 06:36] LABS: PLATELET COUNT, AUTOMATED 56 10^3/uL (150-450)
[2020-02-08 06:49] LABS: BLOOD UREA NITROGEN 13 MG/DL (7-18); CALCIUM LEVEL 8.7 MG/DL (8.8-10.2); CARBON DIOXIDE LEVEL 24 MEQ/L (21-32); CHLORIDE LEVEL 110 MEQ/L (98-107); CREATININE FOR GFR 0.99 MG/DL (0.70-1.30); GLOMERULAR FILTRATION RATE > 60.0 (>42); GLUCOSE, FASTING 110 MG/DL (70-100); POTASSIUM SERUM 3.9 MEQ/L (3.5-5.1); SODIUM LEVEL 139 MEQ/L (136-145)
[2020-02-08] MEDS: HumaLOG INSULIN (NovoLOG) PER UNIT SC SCH ×4 (07:30→21:00)
[2020-02-08 07:37] LABS: ERYTHROCYTE SEDIMENTATION RATE 72 mm/hr (0-20)
[2020-02-08] MEDS: FAMOTIDINE 20 MG TAB PO SCH (11:19)
[2020-02-08] MEDS: MAGNESIUM CHLORIDE 64 MG TABCR (SLO MAG) PO SCH ×3 (11:19→21:46)
[2020-02-08] MEDS: LACTOBACILLUS ACIDOPHILUS CAP (BACID) PO SCH ×5 (11:20→21:47)
[2020-02-08] MEDS: TAMSULOSIN 0.4 MG CAP PO SCH (11:20)
[2020-02-08] MEDS: risperiDONE 1 MG TAB PO SCH ×3 (11:21→21:47)
[2020-02-08] MEDS: levETIRAcetam 250MG TABLET (KEPPRA) PO SCH ×3 (11:21→21:47)
[2020-02-08] MEDS: ALPRAZolam 0.5 MG TAB PO PRN (11:21)
[2020-02-08] MEDS: bisoproloL fumarate 10 MG TAB PO SCH (11:29)
[2020-02-08] MEDS: ACETAMINOPHEN TAB 650MG DOSE (2X325MG) PO PRN (11:33)
[2020-02-08 14:00] VITALS: BP 138/64
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
[2020-02-08 14:11] LABS: HEPARIN INDUCED PLATELET ABY 0.062 OD (0.000-0.400); PARVOVIRUS B19 QUANT PCR Negative copies/mL (Negative)
[2020-02-08] MEDS: FLUCONAZOLE 200 MG in IV 1 EA IV SCH (16:58)
[2020-02-08] MEDS: POTASSIUM CHLORIDE 10 MEQ SR TABLET PO SCH ×2 (21:00→21:48)
[2020-02-08] MEDS: PRAVASTATIN 20 MG TAB PO SCH ×2 (21:00→21:47)
[2020-02-08] MEDS: PANTOPRAZOLE 40MG TAB (PROTONIX) PO SCH ×2 (21:00→21:47)
[2020-02-08] MEDS: FINASTERIDE 5 MG TAB PO SCH ×2 (21:00→21:47)
[2020-02-08] MEDS: LEVEMIR (INSULIN DETEMIR) 1 UNITS/0.01ML SC SCH (21:48)
[2020-02-08 22:00] VITALS: BP 141/54
[2020-02-09] VITALS: BP 141/54
[2020-02-09 04:35] VITALS: BP 173/72
[2020-02-09] MEDS ORDERED: MAALOX 30 ML SUSP *UDC PO ONE (04:45)
[2020-02-09] MEDS: CEFTAROLINE FOSAMIL 600 MG in D5W MINI-BAG PLUS 50 ML IV SCH ×2 (05:01→16:25)
[2020-02-09 06:00] VITALS: BP 146/61
[2020-02-09 06:24] LABS: BASO % 0.8 % (0.0-1.0); EOS # 0.2 10^3/uL (0.0-0.5); EOS % 3.9 % (0.0-3.0); HEMATOCRIT 32.2 % (42.0-52.0); HEMOGLOBIN 10.6 g/dl (13.5-17.5); LYMPH # 1.3 10^3/uL (1.5-5.0); LYMPH % 26.6 % (24.0-44.0); MEAN CORPUSCULAR HEMOGLOBIN 27.8 pg (27.0-33.0); MEAN CORPUSCULAR HGB CONC 32.9 g/dl (32.0-36.5); MEAN CORPUSCULAR VOLUME 84.5 fl (80.0-96.0); MONO # 0.6 10^3/uL (0.0-0.8); MONO % 12.4 % (0.0-5.0); NEUTROPHILS # 2.7 10^3/uL (1.5-8.5); NEUTROPHILS % 55.9 % (36.0-66.0); PLATELET COUNT, AUTOMATED 53 10^3/uL (150-450); RED BLOOD COUNT 3.81 10^6/uL (4.30-6.10); WHITE BLOOD COUNT 4.9 10^3/uL (4.0-10.0)
[2020-02-09 06:25] LABS: BLOOD UREA NITROGEN 10 MG/DL (7-18); C REACTIVE PROTEIN QUANTITATIV 3.76 MG/DL (0.00-0.30); CALCIUM LEVEL 8.6 MG/DL (8.8-10.2); CARBON DIOXIDE LEVEL 23 MEQ/L (21-32); CHLORIDE LEVEL 111 MEQ/L (98-107); CREATININE FOR GFR 0.92 MG/DL (0.70-1.30); GLOMERULAR FILTRATION RATE > 60.0 (>42); GLUCOSE, FASTING 161 MG/DL (70-100); POTASSIUM SERUM 3.9 MEQ/L (3.5-5.1); SODIUM LEVEL 140 MEQ/L (136-145)
[2020-02-09 07:05] LABS: ERYTHROCYTE SEDIMENTATION RATE 66 mm/hr (0-20)
[2020-02-09] MEDS: HumaLOG INSULIN (NovoLOG) PER UNIT SC SCH ×4 (07:30→20:55)
[2020-02-09] MEDS: LACTOBACILLUS ACIDOPHILUS CAP (BACID) PO SCH ×4 (08:00→20:44)
[2020-02-09] MEDS: HALOPERIDOL 5 MG/ML VIAL (J1630) IM PRN (08:57)
[2020-02-09] MEDS: risperiDONE 1 MG TAB PO SCH ×2 (09:00→20:45)
[2020-02-09] MEDS: TAMSULOSIN 0.4 MG CAP PO SCH (09:00)
[2020-02-09] MEDS: levETIRAcetam 250MG TABLET (KEPPRA) PO SCH ×2 (09:00→20:44)
[2020-02-09] MEDS: bisoproloL fumarate 10 MG TAB PO SCH (09:00)
[2020-02-09] MEDS: MAGNESIUM CHLORIDE 64 MG TABCR (SLO MAG) PO SCH ×2 (09:00→21:00)
[2020-02-09] MEDS: FAMOTIDINE 20 MG TAB PO SCH (09:00)
[2020-02-09] MEDS: KCL 20MEQ IN 0.45NS 1000ML 1,000 ML IV SCH ×2 (09:55→22:18)
--- NOTE | 2020-02-09 13:42 | ECGEPIP ---
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 ATRIAL FIBRILLATION WITH SLOW VENTRICULAR RESPONSE BORDERLINE LEFT AXIS DEVIATION ABNORMAL RHYTHM ECG Decreased heart rate and rhythm change compared with 10/15/2019. Electronically Signed on 02-09-2020 13:42:02 EDT by Shankar Chester
[2020-02-09 14:00] VITALS: BP 149/60
[2020-02-09] MEDS: FLUCONAZOLE 200 MG in IV 1 EA IV SCH (15:10)
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
[2020-02-09] MEDS: POTASSIUM CHLORIDE 10 MEQ SR TABLET PO SCH (20:45)
[2020-02-09] MEDS: PANTOPRAZOLE 40MG TAB (PROTONIX) PO SCH (20:45)
[2020-02-09] MEDS: PRAVASTATIN 20 MG TAB PO SCH (20:45)
[2020-02-09] MEDS: FINASTERIDE 5 MG TAB PO SCH (20:45)
[2020-02-09] MEDS: NORCO, ANEXSIA 5/325MG TABLET (HYDROcodone/ACETAMINOPHEN) PO PRN (20:45)
[2020-02-09] MEDS: LEVEMIR (INSULIN DETEMIR) 1 UNITS/0.01ML SC SCH (20:55)
[2020-02-09 22:00] VITALS: BP 147/83
[2020-02-10] MEDS: CEFTAROLINE FOSAMIL 600 MG in D5W MINI-BAG PLUS 50 ML IV SCH ×2 (05:26→17:57)
[2020-02-10 06:00] VITALS: BP 142/67
[2020-02-10 06:22] LABS: BASO % 0.6 % (0.0-1.0); EOS # 0.2 10^3/uL (0.0-0.5); EOS % 4.1 % (0.0-3.0); HEMATOCRIT 32.1 % (42.0-52.0); HEMOGLOBIN 10.2 g/dl (13.5-17.5); LYMPH # 1.4 10^3/uL (1.5-5.0); LYMPH % 28.5 % (24.0-44.0); MEAN CORPUSCULAR HEMOGLOBIN 27.3 pg (27.0-33.0); MEAN CORPUSCULAR HGB CONC 31.8 g/dl (32.0-36.5); MEAN CORPUSCULAR VOLUME 85.8 fl (80.0-96.0); MONO # 0.6 10^3/uL (0.0-0.8); MONO % 12.7 % (0.0-5.0); NEUTROPHILS # 2.6 10^3/uL (1.5-8.5); NEUTROPHILS % 53.9 % (36.0-66.0); RED BLOOD COUNT 3.74 10^6/uL (4.30-6.10); WHITE BLOOD COUNT 4.9 10^3/uL (4.0-10.0)
[2020-02-10 06:41] LABS: BLOOD UREA NITROGEN 10 MG/DL (7-18); CALCIUM LEVEL 8.9 MG/DL (8.8-10.2); CARBON DIOXIDE LEVEL 24 MEQ/L (21-32); CHLORIDE LEVEL 112 MEQ/L (98-107); CREATININE FOR GFR 1.07 MG/DL (0.70-1.30); GLOMERULAR FILTRATION RATE > 60.0 (>42); GLUCOSE, FASTING 124 MG/DL (70-100); POTASSIUM SERUM 4.2 MEQ/L (3.5-5.1); SODIUM LEVEL 142 MEQ/L (136-145)
[2020-02-10 06:48] LABS: PLATELET COUNT, AUTOMATED 70 10^3/uL (150-450)
[2020-02-10 07:14] LABS: ERYTHROCYTE SEDIMENTATION RATE 67 mm/hr (0-20)
[2020-02-10] MEDS: HumaLOG INSULIN (NovoLOG) PER UNIT SC SCH ×4 (07:30→20:28)
[2020-02-10] MEDS: MAGNESIUM CHLORIDE 64 MG TABCR (SLO MAG) PO SCH ×2 (09:12→20:27)
[2020-02-10] MEDS: risperiDONE 1 MG TAB PO SCH ×2 (09:12→20:27)
[2020-02-10] MEDS: TAMSULOSIN 0.4 MG CAP PO SCH (09:13)
[2020-02-10] MEDS: LACTOBACILLUS ACIDOPHILUS CAP (BACID) PO SCH ×4 (09:13→20:27)
[2020-02-10] MEDS: FAMOTIDINE 20 MG TAB PO SCH (09:13)
[2020-02-10] MEDS: bisoproloL fumarate 10 MG TAB PO SCH (09:13)
[2020-02-10] MEDS: levETIRAcetam 250MG TABLET (KEPPRA) PO SCH ×2 (09:13→20:28)
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
[2020-02-10] MEDS: KCL 20MEQ IN 0.45NS 1000ML 1,000 ML IV SCH (12:37)
[2020-02-10 14:00] VITALS: BP 117/51
[2020-02-10] MEDS: FLUCONAZOLE 200 MG in IV 1 EA IV SCH (15:46)
[2020-02-10] MEDS: POTASSIUM CHLORIDE 10 MEQ SR TABLET PO SCH (20:27)
[2020-02-10] MEDS: PANTOPRAZOLE 40MG TAB (PROTONIX) PO SCH (20:27)
[2020-02-10] MEDS: FINASTERIDE 5 MG TAB PO SCH (20:27)
[2020-02-10] MEDS: PRAVASTATIN 20 MG TAB PO SCH (20:27)
[2020-02-10] MEDS: LEVEMIR (INSULIN DETEMIR) 1 UNITS/0.01ML SC SCH (20:28)
[2020-02-10] MEDS: ALPRAZolam 0.5 MG TAB PO PRN (20:28)
[2020-02-10 22:00] VITALS: BP 144/63
[2020-02-11] MEDS: CEFTAROLINE FOSAMIL 600 MG in D5W MINI-BAG PLUS 50 ML IV SCH (04:14)
[2020-02-11] MEDS: KCL 20MEQ IN 0.45NS 1000ML 1,000 ML IV SCH (04:15)
[2020-02-11 05:55] LABS: BASO % 0.8 % (0.0-1.0); EOS # 0.2 10^3/uL (0.0-0.5); EOS % 4.3 % (0.0-3.0); HEMATOCRIT 32.8 % (42.0-52.0); HEMOGLOBIN 10.5 g/dl (13.5-17.5); LYMPH # 1.5 10^3/uL (1.5-5.0); LYMPH % 29.6 % (24.0-44.0); MEAN CORPUSCULAR HEMOGLOBIN 27.5 pg (27.0-33.0); MEAN CORPUSCULAR VOLUME 85.9 fl (80.0-96.0); MONO # 0.5 10^3/uL (0.0-0.8); MONO % 10.3 % (0.0-5.0); NEUTROPHILS # 2.8 10^3/uL (1.5-8.5); NEUTROPHILS % 54.8 % (36.0-66.0); RED BLOOD COUNT 3.82 10^6/uL (4.30-6.10); WHITE BLOOD COUNT 5.1 10^3/uL (4.0-10.0)
[2020-02-11 05:57] LABS: PLATELET COUNT, AUTOMATED 71 10^3/uL (150-450)
[2020-02-11 06:00] VITALS: BP 134/58
[2020-02-11 06:16] LABS: BLOOD UREA NITROGEN 11 MG/DL (7-18); CALCIUM LEVEL 9.5 MG/DL (8.8-10.2); CARBON DIOXIDE LEVEL 25 MEQ/L (21-32); CHLORIDE LEVEL 110 MEQ/L (98-107); CREATININE FOR GFR 1.04 MG/DL (0.70-1.30); GLOMERULAR FILTRATION RATE > 60.0 (>42); GLUCOSE, FASTING 113 MG/DL (70-100); POTASSIUM SERUM 3.9 MEQ/L (3.5-5.1); SODIUM LEVEL 141 MEQ/L (136-145)
[2020-02-11] MEDS: HumaLOG INSULIN (NovoLOG) PER UNIT SC SCH ×4 (07:30→21:00)
[2020-02-11] MEDS: bisoproloL fumarate 10 MG TAB PO SCH (09:48)
[2020-02-11] MEDS: FAMOTIDINE 20 MG TAB PO SCH (09:48)
[2020-02-11] MEDS: LACTOBACILLUS ACIDOPHILUS CAP (BACID) PO SCH ×4 (09:48→21:29)
[2020-02-11] MEDS: risperiDONE 1 MG TAB PO SCH ×2 (09:48→21:25)
[2020-02-11] MEDS: MAGNESIUM CHLORIDE 64 MG TABCR (SLO MAG) PO SCH ×2 (09:48→21:30)
[2020-02-11] MEDS: TAMSULOSIN 0.4 MG CAP PO SCH (09:49)
[2020-02-11] MEDS: levETIRAcetam 250MG TABLET (KEPPRA) PO SCH ×2 (09:49→21:26)
[2020-02-11 14:00] VITALS: BP 138/66
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
[2020-02-11] MEDS: FINASTERIDE 5 MG TAB PO SCH (21:25)
[2020-02-11] MEDS: PRAVASTATIN 20 MG TAB PO SCH (21:27)
[2020-02-11] MEDS: PANTOPRAZOLE 40MG TAB (PROTONIX) PO SCH (21:27)
[2020-02-11] MEDS: POTASSIUM CHLORIDE 10 MEQ SR TABLET PO SCH (21:29)
[2020-02-11] MEDS: LEVEMIR (INSULIN DETEMIR) 1 UNITS/0.01ML SC SCH (21:30)
[2020-02-11 22:00] VITALS: BP 136/58
[2020-02-12] MEDS: ALPRAZolam 0.5 MG TAB PO PRN (00:03)
[2020-02-12 06:00] VITALS: BP 134/60
[2020-02-12 06:12] LABS: HEMOGLOBIN 10.9 g/dl (13.5-17.5); MEAN CORPUSCULAR HEMOGLOBIN 27.5 pg (27.0-33.0); MEAN CORPUSCULAR HGB CONC 32.1 g/dl (32.0-36.5); MEAN CORPUSCULAR VOLUME 85.6 fl (80.0-96.0); RED BLOOD COUNT 3.97 10^6/uL (4.30-6.10); WHITE BLOOD COUNT 5.7 10^3/uL (4.0-10.0)
[2020-02-12 06:37] LABS: BLOOD UREA NITROGEN 13 MG/DL (7-18); CALCIUM LEVEL 9.6 MG/DL (8.8-10.2); CARBON DIOXIDE LEVEL 24 MEQ/L (21-32); CHLORIDE LEVEL 109 MEQ/L (98-107); CREATININE FOR GFR 1.06 MG/DL (0.70-1.30); GLOMERULAR FILTRATION RATE > 60.0 (>42); GLUCOSE, FASTING 100 MG/DL (70-100); POTASSIUM SERUM 4.1 MEQ/L (3.5-5.1); SODIUM LEVEL 140 MEQ/L (136-145)
[2020-02-12] MEDS: HumaLOG INSULIN (NovoLOG) PER UNIT SC SCH ×4 (07:30→21:00)
[2020-02-12] MEDS: risperiDONE 1 MG TAB PO SCH ×2 (09:33→21:35)
[2020-02-12] MEDS: FAMOTIDINE 20 MG TAB PO SCH (09:33)
[2020-02-12] MEDS: levETIRAcetam 250MG TABLET (KEPPRA) PO SCH ×2 (09:33→21:35)
[2020-02-12] MEDS: MAGNESIUM CHLORIDE 64 MG TABCR (SLO MAG) PO SCH ×2 (09:33→21:39)
[2020-02-12] MEDS: LACTOBACILLUS ACIDOPHILUS CAP (BACID) PO SCH ×4 (09:33→21:39)
[2020-02-12] MEDS: TAMSULOSIN 0.4 MG CAP PO SCH (09:33)
[2020-02-12] MEDS: bisoproloL fumarate 10 MG TAB PO SCH (09:54)
--- NOTE | 2020-02-12 12:06 | IPNPDOC ---
Date Seen The patient was seen on 02/12/20. Progress Note SUBJECTIVE: Urinary retention, >900 at times throughout the day on 02/11/20 requiring several straight catheterizations. Urology consulted today, will f/u recs. Patient had an out patient cystoscopy scheduled for the near future and was seeing a urologist in [place] previously. There were some concerns brought up in morning meeting about the patient's ambulating status, currently requiring max assistance and unsteady on feet. I discussed the patient's case with his who agreed that the patient should stay to get both the urological issues addressed and for additional rehabilitation needed. The patient was not very communicative this morning and therefore had no complaints to address with me directly. OBJECTIVE: VITAL SIGNS: Please see below PHYSICAL EXAMINATION: CONSTITUTIONAL: No acute distress, resting comfortably, noncommunicative this AM, awakend at times but not engaging. EYES: PERRLA, EOM intact HENT, MOUTH: Normocephalic, atraumatic, moist mucous membranes NECK: SUPPLE, no JVD, no lymphadenopathy, no carotid bruit CV: Regular rate and rhythm, S1S2 normal, no murmurs/rubs/gallops RESPIRATORY: Clear to auscultation bilaterally, no rales/rhonchi/wheezes GI: BS positive in 4 quadrants, soft, nontender, nondistended, no rebound or guarding, no organomegaly : Deferred MUSCULOSKELETAL: Normal ROM. No cyanosis, clubbing, swelling, joint deformity, extremity edema INTEGUMENTARY: Intact, no rashes. Left le x 4 cm grade 2 skin tear c foam dressing NEUROLOGIC: Cranial Nerves II-XII are intact, no focal deficits PSYCHIATRIC: Mood and affect are normal CURRENT MEDICATIONS: Please see below LABORATORY DATA: Please see below IMAGING: F/u US bladder ASSESSMENT: Patient is a 79 y/o male treated for urinary retention, ITP, physical deconditioning. PLAN: 1. Benign prostatic hyperplasia with urinary retention, chronic. On tamsulosin. >900 cc on bladder scan this AM, solis catheter ordered. Urology consult in place. C/w tamsulosin, finasteride. F/u urology recommendations and US bladder. 2. UTI, proteus mirabilis. Completed treatment. 3. ITP (idiopathic thrombocytopenia). No signs of acute bleeding. Baseline PLTs 150K, currently 71. On 02/04/20, plt 9 + IVIG 80 gm QD x 2D per Dr. Reddy. Patient of Dr. Zimmer and Ange Lamb M.D. in the Medical Oncology practice. He was placed on the oral SYK tyrosine kinase inhibitor Tavaliss and tolerated this well. However, he had obtained this medication through a financial services specialist program, which in November 2019. Treatment was therefore changed to weekly romiplostim. 4. Physical deconditioning, chronic. Well known to service. Would benefit from continued rehab service. C/w PT/OT while here. 5. Vascular dementia, chronic. Behaviors include aggression at times. risperdal, Haldol PRN 6. Seizure disorder, chronic. Stable. C/w keppra. 7. Primary adenocarcinoma of ascending colon and hepatic flexure. diagnosed 06/2018. F/u with specialists. 8. HTN (hypertension). Stable. C/w meds. 9. CAD S/P percutaneous coronary angioplasty. Stable. C/w current medications. 10. Paroxysmal atrial fibrillation, chronic. Stable. C/w rate control medications, not on anticoagulation due to ITP. 9. DM2 (diabetes mellitus, type 2), chronic. Stable. ISS, detemir HS. Consistent carb diet. 10. GERD. PPI, famotidine. 11. DVT px. avoid anticoag due to ITP, SCDs. DISPOSITION: Admitted under inpatient status. His would like patient to return home when medically improved. She states she has a lot of equipment at home to do so, will need home services. VS, I&O, 24H, Fishbone Vital Signs/I&O Vital Signs Date Time Temp Pulse Resp B/P (MAP) Pulse Ox O2 Delivery O2 Flow Rate FiO2 02/12/20 06:00 97.7 54 18 134/60 (84) 97 Room Air 02/10/20 14:00 99.0 I&O- Last 24 Hours up to 6 AM 02/12/20 06:00 Intake Total 630 ml Output Total 2525 ml Balance -1895 ml Laboratory Data 24H LABS Laboratory Tests 2 02/11/20 16:52: Bedside Glucose (Misc Panel) 149H 02/11/20 20:43: Bedside Glucose (Misc Panel) 136H 02/12/20 05:19: Nucleated Red Blood Cells % (auto) 0.0, Anion Gap 7L, Glomerular Filtration Rate > 60.0, Calcium Level 9.6 CBC/BMP Laboratory Tests 02/12/20 05:19 Microbiology Microbiology 02/08/20 Respiratory Virus Panel (PCR) (JORGE) - Final, Complete 02/04/20 Urine Culture - Final, Complete 02/04/20 Blood Culture - Final, Complete NO GROWTH AFTER 5 DAYS 02/04/20 Blood Culture - Final, Complete NO GROWTH AFTER 5 DAYS Lorna Agrawal MD Feb 12, 2020 12:06
[2020-02-12 14:00] VITALS: BP 131/58
[2020-02-12] MEDS: LEVEMIR (INSULIN DETEMIR) 1 UNITS/0.01ML SC SCH (21:00)
[2020-02-12] MEDS: FINASTERIDE 5 MG TAB PO SCH (21:35)
[2020-02-12] MEDS: POTASSIUM CHLORIDE 10 MEQ SR TABLET PO SCH (21:38)
[2020-02-12] MEDS: PRAVASTATIN 20 MG TAB PO SCH (21:38)
[2020-02-12] MEDS: PANTOPRAZOLE 40MG TAB (PROTONIX) PO SCH (21:39)
[2020-02-12 22:00] VITALS: BP 132/57
[2020-02-13] MEDS: ALPRAZolam 0.5 MG TAB PO PRN ×2 (00:58→17:30)
[2020-02-13 06:00] VITALS: BP 135/61
[2020-02-13 06:20] LABS: HEMATOCRIT 33.5 % (42.0-52.0); HEMOGLOBIN 10.7 g/dl (13.5-17.5); MEAN CORPUSCULAR HEMOGLOBIN 27.5 pg (27.0-33.0); MEAN CORPUSCULAR HGB CONC 31.9 g/dl (32.0-36.5); MEAN CORPUSCULAR VOLUME 86.1 fl (80.0-96.0); PLATELET COUNT, AUTOMATED 105 10^3/uL (150-450); RED BLOOD COUNT 3.89 10^6/uL (4.30-6.10)
[2020-02-13 06:58] LABS: BLOOD UREA NITROGEN 14 MG/DL (7-18); CALCIUM LEVEL 9.1 MG/DL (8.8-10.2); CARBON DIOXIDE LEVEL 25 MEQ/L (21-32); CHLORIDE LEVEL 107 MEQ/L (98-107); CREATININE FOR GFR 1.17 MG/DL (0.70-1.30); GLOMERULAR FILTRATION RATE > 60.0 (>42); GLUCOSE, FASTING 138 MG/DL (70-100); POTASSIUM SERUM 3.8 MEQ/L (3.5-5.1); SODIUM LEVEL 140 MEQ/L (136-145)
[2020-02-13] MEDS: MAGNESIUM CHLORIDE 64 MG TABCR (SLO MAG) PO SCH ×2 (09:00→22:14)
[2020-02-13] MEDS: FAMOTIDINE 20 MG TAB PO SCH (10:58)
[2020-02-13] MEDS: levETIRAcetam 250MG TABLET (KEPPRA) PO SCH ×2 (10:58→22:15)
[2020-02-13] MEDS: TAMSULOSIN 0.4 MG CAP PO SCH (10:58)
[2020-02-13] MEDS: HumaLOG INSULIN (NovoLOG) PER UNIT SC SCH ×4 (10:58→21:00)
[2020-02-13] MEDS: risperiDONE 1 MG TAB PO SCH ×2 (10:59→22:15)
[2020-02-13] MEDS: bisoproloL fumarate 10 MG TAB PO SCH (10:59)
[2020-02-13] MEDS: LACTOBACILLUS ACIDOPHILUS CAP (BACID) PO SCH ×4 (10:59→22:14)
[2020-02-13 14:00] VITALS: BP 134/60
--- NOTE | 2020-02-13 16:44 | IPNPDOC ---
Date Seen The patient was seen on 02/13/20. Progress Note SUBJECTIVE: Acstro catheter in place, awaiting urology suggestions/input. More sleepy in the AM than normal as per staff, will look into medications to see if over sedating. Patient was not communicative today and is not eating well. Refused PT/OT 02/12/20. No acute events overnight. OBJECTIVE: VITAL SIGNS: Please see below PHYSICAL EXAMINATION: CONSTITUTIONAL: No acute distress, resting comfortably, noncommunicative again this AM, awakend at times but not engaging. EYES: PERRLA, EOM intact HENT, MOUTH: Normocephalic, atraumatic, moist mucous membranes NECK: SUPPLE, no JVD, no lymphadenopathy, no carotid bruit CV: Regular rate and rhythm, S1S2 normal, no murmurs/rubs/gallops RESPIRATORY: Clear to auscultation bilaterally, no rales/rhonchi/wheezes GI: BS positive in 4 quadrants, soft, nontender, nondistended, no rebound or guarding, no organomegaly : Deferred MUSCULOSKELETAL: Normal ROM. No cyanosis, clubbing, swelling, joint deformity, extremity edema INTEGUMENTARY: Intact, no rashes. Left le x 4 cm grade 2 skin tear c foam dressing NEUROLOGIC: Cranial Nerves II-XII are intact, no focal deficits PSYCHIATRIC: Mood and affect are normal CURRENT MEDICATIONS: Please see below LABORATORY DATA: Please see below IMAGING: F/u US bladder ASSESSMENT: Patient is a 79 y/o male treated for urinary retention, ITP, physical deconditioning. PLAN: 1. Benign prostatic hyperplasia with urinary retention, chronic. Castro in place. C/w tamsulosin, finasteride. F/u urology recommendations and US bladder. 2. Increased somnolence. Given dose of ativan last evening, decreased to 0.25 PRN for anxiety. Monitor closely. 3. ITP (idiopathic thrombocytopenia). No signs of acute bleeding. Baseline PLTs 150K, currently 105 and improved. 4. Physical deconditioning, chronic. Well known to service. refusing as of 02/12/20. Would benefit from continued rehab service. C/w PT/OT if allows. 5. Vascular dementia, chronic. Behaviors include aggression at times. risperdal, Haldol PRN 6. Seizure disorder, chronic. Stable. C/w keppra. 7. Primary adenocarcinoma of ascending colon and hepatic flexure. diagnosed 06/2018. F/u with specialists. 8. HTN (hypertension). Stable. C/w meds. 9. CAD S/P percutaneous coronary angioplasty. Stable. C/w current medications. 10. Paroxysmal atrial fibrillation, chronic. Stable. C/w rate control medications, not on anticoagulation due to ITP. 9. DM2 (diabetes mellitus, type 2), chronic. Stable. ISS, detemir HS. Consistent carb diet. 10. GERD. PPI, famotidine. 11. DVT px. avoid anticoag due to ITP, SCDs. DISPOSITION: Admitted under inpatient status. His would like patient to return home when medically improved. VS, I&O, 24H, Fishbone Vital Signs/I&O Vital Signs Date Time Temp Pulse Resp B/P (MAP) Pulse Ox O2 Delivery O2 Flow Rate FiO2 02/13/20 14:00 98.4 50 17 134/60 (84) 95 Room Air 02/10/20 14:00 99.0 I&O- Last 24 Hours up to 6 AM 02/13/20 06:00 Intake Total 350 ml Output Total 2275 ml Balance -1925 ml Laboratory Data 24H LABS Laboratory Tests 2 02/12/20 20:19: Bedside Glucose (Misc Panel) 136H 02/13/20 05:32: Nucleated Red Blood Cells % (auto) 0.0, Anion Gap 8, Glomerular Filtration Rate > 60.0, Calcium Level 9.1 02/13/20 11:33: Bedside Glucose (Misc Panel) 129H CBC/BMP Laboratory Tests 02/13/20 05:32 Microbiology Microbiology 02/08/20 Respiratory Virus Panel (PCR) ([facility]) - Final, Complete 02/04/20 Urine Culture - Final, Complete 02/04/20 Blood Culture - Final, Complete NO GROWTH AFTER 5 DAYS 02/04/20 Blood Culture - Final, Complete NO GROWTH AFTER 5 DAYS Current Medications Current Medications Medications (Trade) Dose Ordered Sig/[place] Route PRN Reason Start Time Stop Time Status Last Admin Dose Admin Acetaminophen (Tylenol Tab) 650 mg Q6HP PRN PO PAIN / FEVER 02/07/20 21:15 02/08/20 11:33 Acetaminophen/ Hydrocodone Bitart ([place], Anexsia 5/325) 2 tab Q6H PRN PO PAIN 3/17/20 16:30 02/09/20 20:45 Alprazolam (Xanax) 0.5 mg BIDP PRN PO ANXIETY 02/04/20 15:30 02/13/20 00:58 Bisoprolol Fumarate (Zebeta) 10 mg DAILY PO 02/04/20 09:00 02/13/20 10:59 Ceftaroline Fosamil 400 mg/ Dextrose 50 ml @ 50 mls/hr Q12H IV 02/04/20 15:30 02/04/20 16:13 DC Ceftaroline Fosamil 600 mg/ Dextrose 50 ml @ 50 mls/hr Q12H IV 02/04/20 17:00 02/11/20 12:00 DC 02/11/20 04:14 Clopidogrel Bisulfate (PLAVix) 75 mg DAILY PO 02/04/20 09:00 02/04/20 16:27 DC Dextrose (Dextrose 50%) 25 ml ASDIRECTED PRN IV SEE LABEL COMMENTS 02/04/20 15:30 Famotidine (Pepcid) 20 mg DAILY PO 02/05/20 09:00 02/13/20 10:58 Finasteride (Proscar) 5 mg QHS PO 02/04/20 21:00 02/12/20 21:35 Fluconazole (Diflucan Tablet) 100 mg DAILY PO 02/04/20 09:00 02/06/20 13:54 DC 02/05/20 10:10 Fluconazole 200 mg/IV Miscellaneous Supplies 100 ml @ 100 mls/hr Q24H IV 02/06/20 16:00 02/10/20 23:50 DC 02/10/20 15:46 Glucagon (Glucagon) 1 mg ASDIRECTED PRN SC SEE LABEL COMMENTS 02/04/20 15:30 Glucose (Glucose) 16 GM ASDIRECTED PRN PO SEE LABEL COMMENTS 02/04/20 15:30 Haloperidol (Haldol) 2 mg Q4HP PRN IM AGITATION 02/06/20 14:15 02/09/20 08:57 Home Med (Med Rec Complete!) ASDIRECTED XX 02/04/20 15:45 02/04/20 16:00 DC Immune Globulin / IV Miscellaneous Supplies 0 ml @ 0 mls/hr ASDIRECTED IV 02/04/20 18:00 UNV Immune Globulin / IV Miscellaneous Supplies 0 ml @ 0 mls/hr ASDIRECTED IV 02/05/20 11:45 UNV Insulin Detemir (Levemir Insulin) 5 units QHS SC 02/07/20 21:00 02/11/20 21:30 Insulin Detemir (Levemir Insulin) 12 units QHS SC 02/05/20 21:00 02/07/20 14:10 DC Insulin Detemir (Levemir Insulin) 22 units QHS SC 02/04/20 21:00 02/05/20 11:36 DC 02/04/20 21:15 Insulin Human Lispro (HumaLOG INSULIN) SEE PROTOCOL TABLE AC SC 02/04/20 17:30 02/13/20 10:58 Insulin Human Lispro (HumaLOG INSULIN) SEE PROTOCOL TABLE QHS SC 02/04/20 21:00 Lactobacillus Acidophilus (Bacid) 1 ea WMHS PO 02/04/20 18:00 02/13/20 13:11 Levetiracetam (Keppra) 250 mg QAM PO 02/05/20 09:00 02/13/20 10:58 Levetiracetam (Keppra) 500 mg BID PO 02/04/20 21:00 02/04/20 16:22 DC Levetiracetam (Keppra) 500 mg QHS PO 02/04/20 21:00 02/12/20 21:35 Magnesium Chloride (Slow-Mag) 64 mg BID PO 02/04/20 21:00 02/12/20 21:39 Miscellaneous (Unresolved Clarification Entry) SEE LABEL COMMENTS DAILY XX 02/08/20 09:00 02/09/20 08:49 DC Miscellaneous (Unresolved Clarification Entry) SEE LABEL COMMENTS DAILY XX 02/09/20 09:00 02/09/20 11:15 DC Pantoprazole Sodium (Protonix) 40 mg QHS PO 02/04/20 21:00 02/12/20 21:39 Potassium Chloride/Sodium Chloride 1,000 ml @ 75 mls/hr [id number] IV 02/06/20 15:00 02/11/20 19:15 DC 02/11/20 04:15 Potassium Chloride (Micro-K Extencaps) 10 meq QHS PO 02/04/20 21:00 02/12/20 21:38 Pravastatin Sodium (Pravachol) 20 mg QHS PO 02/04/20 21:00 02/12/20 21:38 Risperidone (RisperDAL) 1 mg BID PO 02/04/20 21:00 02/13/20 10:59 Risperidone (RisperDAL) 1 mg QHS PO 02/04/20 21:00 02/04/20 16:22 DC Sodium Chloride 1,000 ml @ 75 mls/hr [id number] IV 02/04/20 17:00 02/05/20 11:36 DC 02/05/20 09:57 Tamsulosin HCl (Flomax) 0.4 mg DAILY PO 02/05/20 09:00 02/13/20 10:58 Tamsulosin HCl (Flomax) 0.8 mg DAILY PO 02/05/20 09:00 02/04/20 16:22 DC Allergies Coded Allergies: procaine (Verified Allergy, Severe, difficulty breathing, 02/04/20) Penicillins (Verified Allergy, Intermediate, swelling, 02/04/20) Lorna Agrawal MD Feb 13, 2020 16:44
[2020-02-13] MEDS: LEVEMIR (INSULIN DETEMIR) 1 UNITS/0.01ML SC SCH (21:00)
[2020-02-13 22:00] VITALS: BP 134/60
[2020-02-13] MEDS: FINASTERIDE 5 MG TAB PO SCH (22:14)
[2020-02-13] MEDS: PANTOPRAZOLE 40MG TAB (PROTONIX) PO SCH (22:15)
[2020-02-13] MEDS: POTASSIUM CHLORIDE 10 MEQ SR TABLET PO SCH (22:15)
[2020-02-13] MEDS: PRAVASTATIN 20 MG TAB PO SCH (22:15)
[2020-02-14 05:58] LABS: HEMATOCRIT 33.5 % (42.0-52.0); HEMOGLOBIN 10.6 g/dl (13.5-17.5); MEAN CORPUSCULAR HEMOGLOBIN 27.2 pg (27.0-33.0); MEAN CORPUSCULAR HGB CONC 31.6 g/dl (32.0-36.5); MEAN CORPUSCULAR VOLUME 85.9 fl (80.0-96.0); PLATELET COUNT, AUTOMATED 116 10^3/uL (150-450); WHITE BLOOD COUNT 6.4 10^3/uL (4.0-10.0)
[2020-02-14 06:00] VITALS: BP 153/81
[2020-02-14 06:19] LABS: BLOOD UREA NITROGEN 15 MG/DL (7-18); CALCIUM LEVEL 9.4 MG/DL (8.8-10.2); CARBON DIOXIDE LEVEL 24 MEQ/L (21-32); CHLORIDE LEVEL 108 MEQ/L (98-107); CREATININE FOR GFR 1.14 MG/DL (0.70-1.30); GLOMERULAR FILTRATION RATE > 60.0 (>42); GLUCOSE, FASTING 138 MG/DL (70-100); POTASSIUM SERUM 3.9 MEQ/L (3.5-5.1); SODIUM LEVEL 141 MEQ/L (136-145)
[2020-02-14] MEDS: MAGNESIUM CHLORIDE 64 MG TABCR (SLO MAG) PO SCH ×2 (09:22→19:58)
[2020-02-14] MEDS: HumaLOG INSULIN (NovoLOG) PER UNIT SC SCH ×4 (09:22→19:58)
[2020-02-14] MEDS: risperiDONE 1 MG TAB PO SCH ×2 (09:23→20:00)
[2020-02-14] MEDS: FAMOTIDINE 20 MG TAB PO SCH (09:23)
[2020-02-14] MEDS: LACTOBACILLUS ACIDOPHILUS CAP (BACID) PO SCH ×4 (09:23→19:58)
[2020-02-14] MEDS: TAMSULOSIN 0.4 MG CAP PO SCH (09:23)
[2020-02-14] MEDS: levETIRAcetam 250MG TABLET (KEPPRA) PO SCH ×2 (09:23→19:57)
[2020-02-14] MEDS: bisoproloL fumarate 10 MG TAB PO SCH (09:24)
[2020-02-14 14:00] VITALS: BP 137/54
--- NOTE | 2020-02-14 18:26 | IPNPDOC ---
Date Seen The patient was seen on 02/14/20. Progress Note SUBJECTIVE: More cooperative with PT/OT and patient is more awake in the morning after decreasing PRN med. Patient is on contact and droplet precautions for encounter with +COVID 19 employee. Patient has no symptoms: no cough, fever, chills, shortness of breath, abdominal pain. Discussed case with urology and at this time they are recommending to c/w solis catheter and o/p cystoscopy. No acute events overnight. OBJECTIVE: VITAL SIGNS: Please see below PHYSICAL EXAMINATION: CONSTITUTIONAL: No acute distress, resting comfortably, communicating well this AM, AAOx1 EYES: PERRLA, EOM intact HENT, MOUTH: Normocephalic, atraumatic, moist mucous membranes NECK: SUPPLE, no JVD, no lymphadenopathy, no carotid bruit CV: Regular rate and rhythm, S1S2 normal, no murmurs/rubs/gallops RESPIRATORY: Clear to auscultation bilaterally, no rales/rhonchi/wheezes GI: BS positive in 4 quadrants, soft, nontender, nondistended, no rebound or guarding, no organomegaly : Solis catheter in place MUSCULOSKELETAL: Normal ROM. No cyanosis, clubbing, swelling, joint deformity, extremity edema INTEGUMENTARY: Intact, no rashes. Left le x 4 cm grade 2 skin tear c foam dressing NEUROLOGIC: Cranial Nerves II-XII are intact, no focal deficits PSYCHIATRIC: Mood and affect are normal CURRENT MEDICATIONS: Please see below LABORATORY DATA: Please see below IMAGING: None ASSESSMENT: Patient is a 79 y/o male treated for urinary retention, ITP, physical deconditioning. PLAN: 1. Benign prostatic hyperplasia with urinary retention, chronic. As per urology, patient should keep solis at discharge and f/u in office. Will need o/p cystoscopy. C/w tamsulosin, finasteride at current doses. 2. COVID 19 exposure. Employee who took care of him tested positive, precautions in place to monitor closely. Asymptomatic. Droplet and contact precautions in place. 3. ITP (idiopathic thrombocytopenia). No signs of acute bleeding. Baseline PLTs 150K, currently 105 and improving. 4. Physical deconditioning, chronic. Participating with PT/OT intermittently. Would benefit from continued rehab service. C/w PT/OT if allows. 5. Vascular dementia, chronic. Behaviors include aggression at times. risperdal, Haldol PRN 6. Seizure disorder, chronic. Stable. C/w keppra. 7. Primary adenocarcinoma of ascending colon and hepatic flexure. diagnosed 06/2018. F/u with specialists o/o. 8. HTN (hypertension). Stable. C/w meds. 9. CAD S/P percutaneous coronary angioplasty. Stable. C/w current medications. 10. Paroxysmal atrial fibrillation, chronic. Stable. C/w rate control medications, not on anticoagulation due to ITP. 9. DM2 (diabetes mellitus, type 2), chronic. Stable. ISS, detemir HS. Consistent carb diet. 10. GERD. PPI, famotidine. 11. DVT px. avoid anticoag due to ITP, SCDs. DISPOSITION: Admitted under inpatient status. His would like patient to return home when medically improved. VS, I&O, 24H, Fishbone Vital Signs/I&O Vital Signs Date Time Temp Pulse Resp B/P (MAP) Pulse Ox O2 Delivery O2 Flow Rate FiO2 02/14/20 14:00 98.3 62 17 137/54 (81) 98 Room Air 02/10/20 14:00 99.0 I&O- Last 24 Hours up to 6 AM 02/14/20 06:00 Intake Total 260 ml Output Total 975 ml Balance -715 ml Laboratory Data 24H LABS Laboratory Tests 2 02/13/20 20:23: Bedside Glucose (Misc Panel) 146H 02/14/20 05:42: Nucleated Red Blood Cells % (auto) 0.0, Anion Gap 9, Glomerular Filtration Rate > 60.0, Calcium Level 9.4 02/14/20 11:27: Bedside Glucose (Misc Panel) 150H 02/14/20 16:33: Bedside Glucose (Misc Panel) 103 CBC/BMP Laboratory Tests 02/14/20 05:42 Microbiology Microbiology 02/08/20 Respiratory Virus Panel (PCR) ([facility]) - Final, Complete 02/04/20 Urine Culture - Final, Complete 02/04/20 Blood Culture - Final, Complete NO GROWTH AFTER 5 DAYS 02/04/20 Blood Culture - Final, Complete NO GROWTH AFTER 5 DAYS Current Medications Current Medications Medications (Trade) Dose Ordered Sig/[place] Route PRN Reason Start Time Stop Time Status Last Admin Dose Admin Acetaminophen (Tylenol Tab) 650 mg Q6HP PRN PO PAIN / FEVER 02/07/20 21:15 02/08/20 11:33 Acetaminophen/ Hydrocodone Bitart ([place], Anexsia 5/325) 2 tab Q6H PRN PO PAIN 02/04/20 16:30 02/09/20 20:45 Alprazolam (Xanax) 0.25 mg BIDP PRN PO ANXIETY 02/13/20 17:00 02/13/20 17:30 Alprazolam (Xanax) 0.5 mg BIDP PRN PO ANXIETY 02/04/20 15:30 02/13/20 16:47 DC 02/13/20 00:58 Bisoprolol Fumarate (Zebeta) 10 mg DAILY PO 02/04/20 09:00 02/14/20 09:24 Ceftaroline Fosamil 400 mg/ Dextrose 50 ml @ 50 mls/hr Q12H IV 02/04/20 15:30 02/04/20 16:13 DC Ceftaroline Fosamil 600 mg/ Dextrose 50 ml @ 50 mls/hr Q12H IV 02/04/20 17:00 02/11/20 12:00 DC 02/11/20 04:14 Clopidogrel Bisulfate (PLAVix) 75 mg DAILY PO 02/04/20 09:00 02/04/20 16:27 DC Dextrose (Dextrose 50%) 25 ml ASDIRECTED PRN IV SEE LABEL COMMENTS 02/04/20 15:30 Famotidine (Pepcid) 20 mg DAILY PO 02/05/20 09:00 02/14/20 09:23 Finasteride (Proscar) 5 mg QHS PO 02/04/20 21:00 02/13/20 22:14 Fluconazole (Diflucan Tablet) 100 mg DAILY PO 02/04/20 09:00 02/06/20 13:54 DC 02/05/20 10:10 Fluconazole 200 mg/IV Miscellaneous Supplies 100 ml @ 100 mls/hr Q24H IV 02/06/20 16:00 02/10/20 23:50 DC 02/10/20 15:46 Glucagon (Glucagon) 1 mg ASDIRECTED PRN SC SEE LABEL COMMENTS 02/04/20 15:30 Glucose (Glucose) 16 GM ASDIRECTED PRN PO SEE LABEL COMMENTS 02/04/20 15:30 Haloperidol (Haldol) 2 mg Q4HP PRN IM AGITATION 02/06/20 14:15 02/09/20 08:57 Home Med (Med Rec Complete!) ASDIRECTED XX 02/04/20 15:45 02/04/20 16:00 DC Immune Globulin / IV Miscellaneous Supplies 0 ml @ 0 mls/hr ASDIRECTED IV 02/04/20 18:00 UNV Immune Globulin / IV Miscellaneous Supplies 0 ml @ 0 mls/hr ASDIRECTED IV 02/05/20 11:45 UNV Insulin Detemir (Levemir Insulin) 5 units QHS SC 02/07/20 21:00 02/11/20 21:30 Insulin Detemir (Levemir Insulin) 12 units QHS SC 02/05/20 21:00 02/07/20 14:10 DC Insulin Detemir (Levemir Insulin) 22 units QHS SC 02/04/20 21:00 02/05/20 11:36 DC 02/04/20 21:15 Insulin Human Lispro (HumaLOG INSULIN) SEE PROTOCOL TABLE AC SC 02/04/20 17:30 02/14/20 12:44 Insulin Human Lispro (HumaLOG INSULIN) SEE PROTOCOL TABLE QHS SC 02/04/20 21:00 Lactobacillus Acidophilus (Bacid) 1 ea WMHS PO 02/04/20 18:00 02/14/20 18:09 Levetiracetam (Keppra) 250 mg QAM PO 02/05/20 09:00 02/14/20 09:23 Levetiracetam (Keppra) 500 mg BID PO 02/04/20 21:00 02/04/20 16:22 DC Levetiracetam (Keppra) 500 mg QHS PO 02/04/20 21:00 02/13/20 22:15 Magnesium Chloride (Slow-Mag) 64 mg BID PO 02/04/20 21:00 02/14/20 09:22 Miscellaneous (Unresolved Clarification Entry) SEE LABEL COMMENTS DAILY XX 02/08/20 09:00 02/09/20 08:49 DC Miscellaneous (Unresolved Clarification Entry) SEE LABEL COMMENTS DAILY XX 02/09/20 09:00 02/09/20 11:15 DC Pantoprazole Sodium (Protonix) 40 mg QHS PO 02/04/20 21:00 02/13/20 22:15 Potassium Chloride/Sodium Chloride 1,000 ml @ 75 mls/hr [id number] IV 02/06/20 15:00 02/11/20 19:15 DC 02/11/20 04:15 Potassium Chloride (Micro-K Extencaps) 10 meq QHS PO 02/04/20 21:00 02/13/20 22:15 Pravastatin Sodium (Pravachol) 20 mg QHS PO 02/04/20 21:00 02/13/20 22:15 Risperidone (RisperDAL) 1 mg BID PO 02/04/20 21:00 02/14/20 09:23 Risperidone (RisperDAL) 1 mg QHS PO 02/04/20 21:00 02/04/20 16:22 DC Sodium Chloride 1,000 ml @ 75 mls/hr [id number] IV 02/04/20 17:00 02/05/20 11:36 DC 02/05/20 09:57 Tamsulosin HCl (Flomax) 0.4 mg DAILY PO 02/05/20 09:00 02/14/20 09:23 Tamsulosin HCl (Flomax) 0.8 mg DAILY PO 02/05/20 09:00 02/04/20 16:22 DC Allergies Coded Allergies: procaine (Verified Allergy, Severe, difficulty breathing, 02/04/20) Penicillins (Verified Allergy, Intermediate, swelling, 02/04/20) Lorna Agrawal MD Feb 14, 2020 18:26
[2020-02-14] MEDS: PANTOPRAZOLE 40MG TAB (PROTONIX) PO SCH (19:55)
[2020-02-14] MEDS: FINASTERIDE 5 MG TAB PO SCH (19:55)
[2020-02-14] MEDS: PRAVASTATIN 20 MG TAB PO SCH (19:57)
[2020-02-14] MEDS: POTASSIUM CHLORIDE 10 MEQ SR TABLET PO SCH (19:57)
[2020-02-14] MEDS: ALPRAZolam 0.5 MG TAB PO PRN (19:58)
[2020-02-14] MEDS: LEVEMIR (INSULIN DETEMIR) 1 UNITS/0.01ML SC SCH ×2 (20:00→20:01)
[2020-02-14 22:00] VITALS: BP 140/57
[2020-02-15 05:58] LABS: HEMATOCRIT 35.6 % (42.0-52.0); HEMOGLOBIN 11.4 g/dl (13.5-17.5); MEAN CORPUSCULAR HEMOGLOBIN 27.5 pg (27.0-33.0); MEAN CORPUSCULAR VOLUME 85.8 fl (80.0-96.0); PLATELET COUNT, AUTOMATED 112 10^3/uL (150-450); RED BLOOD COUNT 4.15 10^6/uL (4.30-6.10); WHITE BLOOD COUNT 5.8 10^3/uL (4.0-10.0)
[2020-02-15 06:00] VITALS: BP 132/51
[2020-02-15 06:16] LABS: BLOOD UREA NITROGEN 16 MG/DL (7-18); CALCIUM LEVEL 9.2 MG/DL (8.8-10.2); CARBON DIOXIDE LEVEL 25 MEQ/L (21-32); CHLORIDE LEVEL 109 MEQ/L (98-107); CREATININE FOR GFR 1.09 MG/DL (0.70-1.30); GLOMERULAR FILTRATION RATE > 60.0 (>42); GLUCOSE, FASTING 113 MG/DL (70-100); POTASSIUM SERUM 3.9 MEQ/L (3.5-5.1); SODIUM LEVEL 141 MEQ/L (136-145)
[2020-02-15] MEDS: HumaLOG INSULIN (NovoLOG) PER UNIT SC SCH ×4 (07:30→20:19)
[2020-02-15] MEDS: LACTOBACILLUS ACIDOPHILUS CAP (BACID) PO SCH ×4 (08:00→20:16)
[2020-02-15] MEDS: levETIRAcetam 250MG TABLET (KEPPRA) PO SCH ×2 (09:00→20:17)
[2020-02-15] MEDS: TAMSULOSIN 0.4 MG CAP PO SCH (09:00)
[2020-02-15] MEDS: risperiDONE 1 MG TAB PO SCH ×2 (09:00→20:17)
[2020-02-15] MEDS: bisoproloL fumarate 10 MG TAB PO SCH (09:00)
[2020-02-15] MEDS: MAGNESIUM CHLORIDE 64 MG TABCR (SLO MAG) PO SCH ×2 (09:00→20:17)
[2020-02-15] MEDS: FAMOTIDINE 20 MG TAB PO SCH (09:00)
[2020-02-15 14:00] VITALS: BP_SYST 127; BP_SYST 154; BP_DIAS 58; BP_DIAS 65
--- NOTE | 2020-02-15 17:31 | IPNPDOC ---
Date Seen The patient was seen on 02/15/20. Progress Note SUBJECTIVE: No acute complaints overnight. Denies cough, fever, chills, shortness of breath, abdominal pain. OBJECTIVE: VITAL SIGNS: Please see below PHYSICAL EXAMINATION: CONSTITUTIONAL: No acute distress, resting comfortably, communicating well this AM, AAOx1 EYES: PERRLA, EOM intact HENT, MOUTH: Normocephalic, atraumatic, moist mucous membranes NECK: SUPPLE, no JVD, no lymphadenopathy, no carotid bruit CV: Regular rate and rhythm, S1S2 normal, no murmurs/rubs/gallops RESPIRATORY: Clear to auscultation bilaterally, no rales/rhonchi/wheezes GI: BS positive in 4 quadrants, soft, nontender, nondistended, no rebound or guarding, no organomegaly : Solis catheter in place MUSCULOSKELETAL: Normal ROM. No cyanosis, clubbing, swelling, joint deformity, extremity edema INTEGUMENTARY: Intact, no rashes. Left and right le x 4 cm grade 2 skin tear with foam dressing NEUROLOGIC: Cranial Nerves II-XII are intact, no focal deficits PSYCHIATRIC: Mood and affect are normal CURRENT MEDICATIONS: Please see below LABORATORY DATA: Please see below IMAGING: None ASSESSMENT: Patient is a 79 y/o male treated for urinary retention, ITP, physical deconditioning. PLAN: 1. Benign prostatic hyperplasia with urinary retention, chronic. As per urology, patient should keep solis at discharge and f/u in office. Will need o/p cystoscopy. C/w tamsulosin, finasteride at current doses. 2. COVID 19 exposure. Employee who took care of him tested positive, precautions in place to monitor closely. Asymptomatic. Droplet and contact precautions in place. 3. ITP (idiopathic thrombocytopenia). No signs of acute bleeding. Baseline PLTs 150K, stable 4. Physical deconditioning, chronic. Participating with PT/OT intermittently. Would benefit from continued rehab service. C/w PT/OT if allows. 5. Vascular dementia, chronic. Behaviors include aggression at times. risperdal, Haldol PRN 6. Seizure disorder, chronic. Stable. C/w keppra. 7. Primary adenocarcinoma of ascending colon and hepatic flexure. diagnosed 06/2018. F/u with specialists o/o. 8. HTN (hypertension). Stable. C/w meds. 9. CAD S/P percutaneous coronary angioplasty. Stable. C/w current medications. 10. Paroxysmal atrial fibrillation, chronic. Stable. C/w rate control medications, not on anticoagulation due to ITP. 9. DM2 (diabetes mellitus, type 2), chronic. Stable. ISS, detemir HS. Consistent carb diet. 10. GERD. PPI, famotidine. 11. DVT px. avoid anticoag due to ITP, SCDs. DISPOSITION: Admitted under inpatient status. His would like patient to return home when medically improved. VS, I&O, 24H, Fishbone Vital Signs/I&O Vital Signs Date Time Temp Pulse Resp B/P (MAP) Pulse Ox O2 Delivery O2 Flow Rate FiO2 02/15/20 14:00 98.4 61 18 154/65 (94) 97 Room Air 02/10/20 14:00 99.0 I&O- Last 24 Hours up to 6 AM 02/15/20 05:59 Intake Total 440 ml Output Total 750 ml Balance -310 ml Laboratory Data 24H LABS Laboratory Tests 2 02/14/20 19:56: Bedside Glucose (Misc Panel) 105 02/15/20 05:12: Nucleated Red Blood Cells % (auto) 0.0, Anion Gap 7L, Glomerular Filtration Rate > 60.0, Calcium Level 9.2 02/15/20 11:21: Bedside Glucose (Misc Panel) 168H 02/15/20 17:09: Bedside Glucose (Misc Panel) 114H CBC/BMP Laboratory Tests 02/15/20 05:12 Microbiology Microbiology 02/08/20 Respiratory Virus Panel (PCR) ([facility]) - Final, Complete Lorna Agrawal MD Feb 15, 2020 17:31
[2020-02-15] MEDS: POTASSIUM CHLORIDE 10 MEQ SR TABLET PO SCH (20:16)
[2020-02-15] MEDS: ALPRAZolam 0.5 MG TAB PO PRN (20:16)
[2020-02-15] MEDS: FINASTERIDE 5 MG TAB PO SCH (20:16)
[2020-02-15] MEDS: PRAVASTATIN 20 MG TAB PO SCH (20:17)
[2020-02-15] MEDS: PANTOPRAZOLE 40MG TAB (PROTONIX) PO SCH (20:17)
[2020-02-15] MEDS: ACETAMINOPHEN TAB 650MG DOSE (2X325MG) PO PRN (20:18)
[2020-02-15] MEDS: LEVEMIR (INSULIN DETEMIR) 1 UNITS/0.01ML SC SCH (20:18)
[2020-02-15 22:00] VITALS: BP 152/73
[2020-02-16] MEDS: NORCO, ANEXSIA 5/325MG TABLET (HYDROcodone/ACETAMINOPHEN) PO PRN ×2 (03:17→09:59)
[2020-02-16 06:00] VITALS: BP 147/63
[2020-02-16 06:24] LABS: HEMATOCRIT 35.7 % (42.0-52.0); HEMOGLOBIN 11.4 g/dl (13.5-17.5); MEAN CORPUSCULAR HEMOGLOBIN 27.3 pg (27.0-33.0); MEAN CORPUSCULAR HGB CONC 31.9 g/dl (32.0-36.5); MEAN CORPUSCULAR VOLUME 85.6 fl (80.0-96.0); RED BLOOD COUNT 4.17 10^6/uL (4.30-6.10); WHITE BLOOD COUNT 7.4 10^3/uL (4.0-10.0)
[2020-02-16 06:35] LABS: BLOOD UREA NITROGEN 18 MG/DL (7-18); CALCIUM LEVEL 9.4 MG/DL (8.8-10.2); CARBON DIOXIDE LEVEL 24 MEQ/L (21-32); CHLORIDE LEVEL 106 MEQ/L (98-107); CREATININE FOR GFR 1.14 MG/DL (0.70-1.30); GLOMERULAR FILTRATION RATE > 60.0 (>42); GLUCOSE, FASTING 153 MG/DL (70-100); POTASSIUM SERUM 3.8 MEQ/L (3.5-5.1); SODIUM LEVEL 138 MEQ/L (136-145)
[2020-02-16] MEDS: HumaLOG INSULIN (NovoLOG) PER UNIT SC SCH ×5 (09:55→21:00)
[2020-02-16] MEDS: LACTOBACILLUS ACIDOPHILUS CAP (BACID) PO SCH ×4 (09:55→22:24)
[2020-02-16] MEDS: levETIRAcetam 250MG TABLET (KEPPRA) PO SCH ×2 (09:55→22:25)
[2020-02-16] MEDS: FAMOTIDINE 20 MG TAB PO SCH (09:55)
[2020-02-16] MEDS: TAMSULOSIN 0.4 MG CAP PO SCH (09:56)
[2020-02-16] MEDS: MAGNESIUM CHLORIDE 64 MG TABCR (SLO MAG) PO SCH ×2 (09:56→22:25)
[2020-02-16] MEDS: risperiDONE 1 MG TAB PO SCH ×2 (09:56→22:26)
[2020-02-16] MEDS: bisoproloL fumarate 10 MG TAB PO SCH (10:00)
--- NOTE | 2020-02-16 12:52 | IPNPDOC ---
Date Seen The patient was seen on 02/16/20. Progress Note SUBJECTIVE: No acute complaints overnight. Ordered repeat PLT test EDTA free, no signs of bleeding. Denies cough, fever, chills, shortness of breath, abdominal pain. OBJECTIVE: VITAL SIGNS: Please see below PHYSICAL EXAMINATION: CONSTITUTIONAL: No acute distress, resting comfortably, communicating well this AM, AAOx1 EYES: PERRLA, EOM intact HENT, MOUTH: Normocephalic, atraumatic, moist mucous membranes NECK: SUPPLE, no JVD, no lymphadenopathy, no carotid bruit CV: Regular rate and rhythm, S1S2 normal, no murmurs/rubs/gallops RESPIRATORY: Clear to auscultation bilaterally, no rales/rhonchi/wheezes GI: BS positive in 4 quadrants, soft, nontender, nondistended, no rebound or guarding, no organomegaly : Solis catheter in place MUSCULOSKELETAL: Normal ROM. No cyanosis, clubbing, swelling, joint deformity, extremity edema INTEGUMENTARY: Intact, no rashes. Left and right le x 4 cm grade 2 skin tear with foam dressing NEUROLOGIC: RUE weakness-chronic and due to shoulder issues. Strength with silo worker 5/5 bilateral upper ext. LUE, RLE, LLE 4/5 strength- baseline. Cranial Nerves II-XII are intact, no focal deficits PSYCHIATRIC: Mood and affect are normal CURRENT MEDICATIONS: Please see below LABORATORY DATA: Please see below IMAGING: None ASSESSMENT: Patient is a 79 y/o male treated for urinary retention, ITP, physical deconditioning. PLAN: 1. Benign prostatic hyperplasia with urinary retention, chronic. As per urology, patient should keep solis at discharge and f/u in office. Will need o/p cystoscopy. C/w tamsulosin, finasteride at current doses. 2. COVID 19 exposure. + employee exposure. Asymptomatic. Droplet and contact precautions in place. 3. ITP (idiopathic thrombocytopenia). No signs of acute bleeding. Baseline PLTs 150K, repeating PLTs today with EDTA free tube. As per , this EDTA free tube needs to be used often to check platelets. 4. Physical deconditioning, chronic. Participating with PT/OT intermittently. Would benefit from continued rehab service. C/w PT/OT 5. Vascular dementia, chronic. Behaviors include aggression at times. Risperdal, Haldol PRN 6. Seizure disorder, chronic. Stable. C/w keppra. 7. Primary adenocarcinoma of ascending colon and hepatic flexure. Diagnosed 06/2018. F/u with specialists o/o. 8. HTN (hypertension). Stable. C/w meds. 9. CAD S/P percutaneous coronary angioplasty. Stable. C/w current medications. 10. Paroxysmal atrial fibrillation, chronic. Stable. C/w rate control medications, not on anticoagulation due to ITP. 9. DM2 (diabetes mellitus, type 2), chronic. Stable. ISS, detemir HS. Consistent carb diet. 10. GERD. PPI, famotidine. 11. DVT px. avoid anticoag due to ITP, SCDs. DISPOSITION: Admitted under inpatient status. His would like patient to return home when medically improved. VS, I&O, 24H, Fishbone Vital Signs/I&O Vital Signs Date Time Temp Pulse Resp B/P (MAP) Pulse Ox O2 Delivery O2 Flow Rate FiO2 02/16/20 10:29 16 02/16/20 10:00 60 139/60 02/16/20 06:00 97.9 96 Room Air 02/10/20 14:00 99.0 I&O- Last 24 Hours up to 6 AM 02/16/20 06:00 Intake Total 120 ml Output Total 900 ml Balance -780 ml Laboratory Data 24H LABS Laboratory Tests 2 02/15/20 17:09: Bedside Glucose (Misc Panel) 114H 02/15/20 20:12: Bedside Glucose (Misc Panel) 114H 02/16/20 05:15: Nucleated Red Blood Cells % (auto) 0.0, Anion Gap 8, Glomerular Filtration Rate > 60.0, Calcium Level 9.4 02/16/20 11:49: Bedside Glucose (Misc Panel) 143H CBC/BMP Laboratory Tests 02/16/20 05:15 Microbiology Microbiology 02/08/20 Respiratory Virus Panel (PCR) (JORGE) - Final, Complete Current Medications Current Medications Medications (Trade) Dose Ordered Sig/Bradford Route PRN Reason Start Time Stop Time Status Last Admin Dose Admin Acetaminophen (Tylenol Tab) 650 mg Q6HP PRN PO PAIN / FEVER 02/07/20 21:15 02/15/20 20:18 Acetaminophen/ Hydrocodone Bitart ([place], Anexsia 5/325) 2 tab Q6H PRN PO PAIN 02/04/20 16:30 02/16/20 09:59 Alprazolam (Xanax) 0.25 mg BIDP PRN PO ANXIETY 02/13/20 17:00 02/15/20 20:16 Alprazolam (Xanax) 0.5 mg BIDP PRN PO ANXIETY 02/04/20 15:30 02/13/20 16:47 DC 02/13/20 00:58 Bisoprolol Fumarate (Zebeta) 10 mg DAILY PO 02/04/20 09:00 02/16/20 10:00 Ceftaroline Fosamil 400 mg/ Dextrose 50 ml @ 50 mls/hr Q12H IV 02/04/20 15:30 02/04/20 16:13 DC Ceftaroline Fosamil 600 mg/ Dextrose 50 ml @ 50 mls/hr Q12H IV 02/04/20 17:00 02/11/20 12:00 DC 02/11/20 04:14 Clopidogrel Bisulfate (PLAVix) 75 mg DAILY PO 02/04/20 09:00 02/04/20 16:27 DC Dextrose (Dextrose 50%) 25 ml ASDIRECTED PRN IV SEE LABEL COMMENTS 02/04/20 15:30 Famotidine (Pepcid) 20 mg DAILY PO 02/05/20 09:00 02/16/20 09:55 Finasteride (Proscar) 5 mg QHS PO 02/04/20 21:00 02/15/20 20:16 Fluconazole (Diflucan Tablet) 100 mg DAILY PO 02/04/20 09:00 02/06/20 13:54 DC 02/05/20 10:10 Fluconazole 200 mg/IV Miscellaneous Supplies 100 ml @ 100 mls/hr Q24H IV 02/06/20 16:00 02/10/20 23:50 DC 02/10/20 15:46 Glucagon (Glucagon) 1 mg ASDIRECTED PRN SC SEE LABEL COMMENTS 02/04/20 15:30 Glucose (Glucose) 16 GM ASDIRECTED PRN PO SEE LABEL COMMENTS 02/04/20 15:30 Haloperidol (Haldol) 2 mg Q4HP PRN IM AGITATION 02/06/20 14:15 02/09/20 08:57 Home Med (Med Rec Complete!) ASDIRECTED XX 02/04/20 15:45 02/04/20 16:00 DC Immune Globulin / IV Miscellaneous Supplies 0 ml @ 0 mls/hr ASDIRECTED IV 02/04/20 18:00 UNV Immune Globulin / IV Miscellaneous Supplies 0 ml @ 0 mls/hr ASDIRECTED IV 02/05/20 11:45 UNV Insulin Detemir (Levemir Insulin) 5 units QHS SC 02/07/20 21:00 02/11/20 21:30 Insulin Detemir (Levemir Insulin) 12 units QHS SC 02/05/20 21:00 02/07/20 14:10 DC Insulin Detemir (Levemir Insulin) 22 units QHS SC 02/04/20 21:00 02/05/20 11:36 DC 02/04/20 21:15 Insulin Human Lispro (HumaLOG INSULIN) SEE PROTOCOL TABLE AC SC 02/04/20 17:30 02/16/20 09:55 Insulin Human Lispro (HumaLOG INSULIN) SEE PROTOCOL TABLE QHS SC 02/04/20 21:00 Lactobacillus Acidophilus (Bacid) 1 ea WMHS PO 02/04/20 18:00 02/16/20 09:55 Levetiracetam (Keppra) 250 mg QAM PO 02/05/20 09:00 02/16/20 09:55 Levetiracetam (Keppra) 500 mg BID PO 02/04/20 21:00 02/04/20 16:22 DC Levetiracetam (Keppra) 500 mg QHS PO 02/04/20 21:00 02/15/20 20:17 Magnesium Chloride (Slow-Mag) 64 mg BID PO 02/04/20 21:00 02/16/20 09:56 Miscellaneous (Unresolved Clarification Entry) SEE LABEL COMMENTS DAILY XX 02/08/20 09:00 02/09/20 08:49 DC Miscellaneous (Unresolved Clarification Entry) SEE LABEL COMMENTS DAILY XX 02/09/20 09:00 02/09/20 11:15 DC Pantoprazole Sodium (Protonix) 40 mg QHS PO 02/04/20 21:00 02/15/20 20:17 Potassium Chloride/Sodium Chloride 1,000 ml @ 75 mls/hr [id number] IV 02/06/20 15:00 02/11/20 19:15 DC 02/11/20 04:15 Potassium Chloride (Micro-K Extencaps) 10 meq QHS PO 02/04/20 21:00 02/15/20 20:16 Pravastatin Sodium (Pravachol) 20 mg QHS PO 02/04/20 21:00 02/15/20 20:17 Risperidone (RisperDAL) 1 mg BID PO 02/04/20 21:00 02/16/20 09:56 Risperidone (RisperDAL) 1 mg QHS PO 02/04/20 21:00 02/04/20 16:22 DC Sodium Chloride 1,000 ml @ 75 mls/hr [id number] IV 02/04/20 17:00 02/05/20 11:36 DC 02/05/20 09:57 Tamsulosin HCl (Flomax) 0.4 mg DAILY PO 02/05/20 09:00 02/16/20 09:56 Tamsulosin HCl (Flomax) 0.8 mg DAILY PO 02/05/20 09:00 02/04/20 16:22 DC Allergies Coded Allergies: procaine (Verified Allergy, Severe, difficulty breathing, 02/04/20) Penicillins (Verified Allergy, Intermediate, swelling, 02/04/20) Lonra Agrawal MD Feb 16, 2020 12:52
[2020-02-16 14:00] VITALS: BP 154/73
[2020-02-16] MEDS: LEVEMIR (INSULIN DETEMIR) 1 UNITS/0.01ML SC SCH (21:00)
[2020-02-16 22:00] VITALS: BP 137/61
[2020-02-16] MEDS: PANTOPRAZOLE 40MG TAB (PROTONIX) PO SCH (22:25)
[2020-02-16] MEDS: PRAVASTATIN 20 MG TAB PO SCH (22:25)
[2020-02-16] MEDS: FINASTERIDE 5 MG TAB PO SCH (22:25)
[2020-02-16] MEDS: POTASSIUM CHLORIDE 10 MEQ SR TABLET PO SCH (22:26)
[2020-02-16] MEDS: ALPRAZolam 0.5 MG TAB PO PRN (22:38)
[2020-02-17 06:00] VITALS: BP 138/60
[2020-02-17 06:09] LABS: HEMATOCRIT 37.4 % (42.0-52.0); HEMOGLOBIN 11.9 g/dl (13.5-17.5); MEAN CORPUSCULAR HEMOGLOBIN 27.2 pg (27.0-33.0); MEAN CORPUSCULAR HGB CONC 31.8 g/dl (32.0-36.5); MEAN CORPUSCULAR VOLUME 85.6 fl (80.0-96.0); PLATELET COUNT, AUTOMATED 103 10^3/uL (150-450); RED BLOOD COUNT 4.37 10^6/uL (4.30-6.10); WHITE BLOOD COUNT 7.6 10^3/uL (4.0-10.0)
[2020-02-17 06:23] LABS: BLOOD UREA NITROGEN 21 MG/DL (7-18); CALCIUM LEVEL 9.3 MG/DL (8.8-10.2); CARBON DIOXIDE LEVEL 25 MEQ/L (21-32); CHLORIDE LEVEL 106 MEQ/L (98-107); CREATININE FOR GFR 1.06 MG/DL (0.70-1.30); GLOMERULAR FILTRATION RATE > 60.0 (>42); GLUCOSE, FASTING 122 MG/DL (70-100); SODIUM LEVEL 140 MEQ/L (136-145)
[2020-02-17] MEDS: HumaLOG INSULIN (NovoLOG) PER UNIT SC SCH ×4 (07:30→21:00)
[2020-02-17] MEDS: LACTOBACILLUS ACIDOPHILUS CAP (BACID) PO SCH ×4 (09:30→20:34)
[2020-02-17] MEDS: MAGNESIUM CHLORIDE 64 MG TABCR (SLO MAG) PO SCH ×2 (10:00→20:35)
[2020-02-17] MEDS: risperiDONE 1 MG TAB PO SCH ×2 (10:00→20:34)
[2020-02-17] MEDS: levETIRAcetam 250MG TABLET (KEPPRA) PO SCH ×2 (10:00→20:34)
[2020-02-17] MEDS: bisoproloL fumarate 10 MG TAB PO SCH (10:00)
[2020-02-17] MEDS: TAMSULOSIN 0.4 MG CAP PO SCH (10:00)
[2020-02-17] MEDS: FAMOTIDINE 20 MG TAB PO SCH (10:00)
[2020-02-17] MEDS ORDERED: MIRALAX *UNIT DOSE* 17GM PACKET PO PRN (10:15)
[2020-02-17] MEDS: DOCUSATE SODIUM 100 MG CAP PO SCH ×2 (12:00→20:34)
[2020-02-17 14:00] VITALS: BP 137/60
--- NOTE | 2020-02-17 16:05 | IPNPDOC ---
Date Seen The patient was seen on 02/17/20. Progress Note SUBJECTIVE: No acute complaints overnight. Denies cough, fever, chills, shortness of breath, abdominal pain. OBJECTIVE: VITAL SIGNS: Please see below PHYSICAL EXAMINATION: CONSTITUTIONAL: No acute distress, resting comfortably, communicating well this AM, AAOx1 EYES: PERRLA, EOM intact HENT, MOUTH: Normocephalic, atraumatic, moist mucous membranes NECK: SUPPLE, no JVD, no lymphadenopathy, no carotid bruit CV: Regular rate and rhythm, S1S2 normal, no murmurs/rubs/gallops RESPIRATORY: Clear to auscultation bilaterally, no rales/rhonchi/wheezes GI: BS positive in 4 quadrants, soft, nontender, nondistended, no rebound or guarding, no organomegaly : Solis catheter in place MUSCULOSKELETAL: Normal ROM. No cyanosis, clubbing, swelling, joint deformity, extremity edema INTEGUMENTARY: Intact, no rashes. Left and right le x 4 cm grade 2 skin tear with foam dressing NEUROLOGIC: RUE weakness-chronic and due to shoulder issues. Strength with literacy tutor 5/5 bilateral upper ext. LUE, RLE, LLE 4/5 strength- baseline. Cranial Nerves II-XII are intact, no focal deficits PSYCHIATRIC: Mood and affect are normal CURRENT MEDICATIONS: Please see below LABORATORY DATA: Please see below IMAGING: None ASSESSMENT: Patient is a 79 y/o male treated for urinary retention, ITP, physica l deconditioning. PLAN: 1. Physical deconditioning, chronic. Participating with PT/OT intermittently. Would benefit from continued rehab service, as PT/OT believe he is more deconditioned now than prior visits. Will need to discuss with family if they are comfortable with him going to [facility] or if they would like him to go home. At this time, home is too unsafe. Case management to discuss with . For now, c/w inpatient PT/OT. 2. Benign prostatic hyperplasia with urinary retention, chronic. As per urology, patient should keep solis at discharge and f/u in office. Will need o/p cystoscopy. C/w tamsulosin, finasteride at current doses. 3. COVID 19 exposure. + employee exposure. Asymptomatic. Droplet and contact precautions in place. 4. ITP (idiopathic thrombocytopenia). No signs of acute bleeding. Baseline PLTs 150K, today 103. As per , this EDTA free tube needs to be used often to check platelets. 5. Vascular dementia, chronic. Behaviors include aggression at times. Risperdal, Haldol PRN 6. Seizure disorder, chronic. Stable. C/w keppra. 7. Primary adenocarcinoma of ascending colon and hepatic flexure. Diagnosed 06/2018. F/u with specialists o/p. 8. HTN (hypertension). Stable. C/w meds. 9. CAD S/P percutaneous coronary angioplasty. Stable. C/w current medications. 10. Paroxysmal atrial fibrillation, chronic. Stable. C/w rate control medications, not on anticoagulation due to ITP. 9. DM2 (diabetes mellitus, type 2), chronic. Stable. ISS, detemir HS. Consistent carb diet. 10. GERD. PPI, famotidine. 11. DVT px. avoid anticoag due to ITP, SCDs. DISPOSITION: Admitted under inpatient status. His would like patient to return home when medically improved. Case management to discuss with his and see what options they are ok with. Home is too unsafe for discharge at this time. VS, I&O, 24H, [place] Vital Signs/I&O Vital Signs Date Time Temp Pulse Resp B/P (MAP) Pulse Ox O2 Delivery O2 Flow Rate FiO2 02/17/20 14:00 98.1 65 19 137/60 (85) 98 Room Air I&O- Last 24 Hours up to 6 AM 02/17/20 05:59 Intake Total 590 ml Output Total 850 ml Balance -260 ml Laboratory Data 24H LABS Laboratory Tests 2 02/16/20 16:33: Bedside Glucose (Misc Panel) 122H 02/16/20 20:17: Bedside Glucose (Misc Panel) 119H 02/17/20 05:39: Nucleated Red Blood Cells % (auto) 0.0, Anion Gap 9, Glomerular Filtration Rate > 60.0, Calcium Level 9.3 02/17/20 11:40: Bedside Glucose (Misc Panel) 142H CBC/BMP Laboratory Tests 02/17/20 05:39 Microbiology Microbiology 02/08/20 Respiratory Virus Panel (PCR) (JORGE) - Final, Complete Current Medications Current Medications Medications (Trade) Dose Ordered Sig/[place] Route PRN Reason Start Time Stop Time Status Last Admin Dose Admin Acetaminophen (Tylenol Tab) 650 mg Q6HP PRN PO PAIN / FEVER 02/07/20 21:15 02/15/20 20:18 Acetaminophen/ Hydrocodone Bitart ([place], Anexsia 5/325) 2 tab Q6H PRN PO PAIN 02/04/20 16:30 02/16/20 09:59 Alprazolam (Xanax) 0.25 mg BIDP PRN PO ANXIETY 02/13/20 17:00 02/16/20 22:38 Alprazolam (Xanax) 0.5 mg BIDP PRN PO ANXIETY 02/04/20 15:30 02/13/20 16:47 DC 02/13/20 00:58 Bisoprolol Fumarate (Zebeta) 10 mg DAILY PO 02/04/20 09:00 02/17/20 10:00 Ceftaroline Fosamil 400 mg/ Dextrose 50 ml @ 50 mls/hr Q12H IV 02/04/20 15:30 02/04/20 16:13 DC Ceftaroline Fosamil 600 mg/ Dextrose 50 ml @ 50 mls/hr Q12H IV 02/04/20 17:00 02/11/20 12:00 DC 02/11/20 04:14 Clopidogrel Bisulfate (PLAVix) 75 mg DAILY PO 02/04/20 09:00 02/04/20 16:27 DC Dextrose (Dextrose 50%) 25 ml ASDIRECTED PRN IV SEE LABEL COMMENTS 02/04/20 15:30 Docusate Sodium (Colace) 100 mg BID PO 02/17/20 09:00 02/17/20 12:00 Famotidine (Pepcid) 20 mg DAILY PO 02/05/20 09:00 02/17/20 10:00 Finasteride (Proscar) 5 mg QHS PO 02/04/20 21:00 02/16/20 22:25 Fluconazole (Diflucan Tablet) 100 mg DAILY PO 02/04/20 09:00 02/06/20 13:54 DC 02/05/20 10:10 Fluconazole 200 mg/IV Miscellaneous Supplies 100 ml @ 100 mls/hr Q24H IV 02/06/20 16:00 02/10/20 23:50 DC 02/10/20 15:46 Glucagon (Glucagon) 1 mg ASDIRECTED PRN SC SEE LABEL COMMENTS 02/04/20 15:30 Glucose (Glucose) 16 GM ASDIRECTED PRN PO SEE LABEL COMMENTS 02/04/20 15:30 Haloperidol (Haldol) 2 mg Q4HP PRN IM AGITATION 02/06/20 14:15 02/09/20 08:57 Home Med (Med Rec Complete!) ASDIRECTED XX 02/04/20 15:45 02/04/20 16:00 DC Immune Globulin / IV Miscellaneous Supplies 0 ml @ 0 mls/hr ASDIRECTED IV 02/04/20 18:00 UNV Immune Globulin / IV Miscellaneous Supplies 0 ml @ 0 mls/hr ASDIRECTED IV 02/05/20 11:45 UNV Insulin Detemir (Levemir Insulin) 5 units QHS SC 02/07/20 21:00 02/11/20 21:30 Insulin Detemir (Levemir Insulin) 12 units QHS SC 02/05/20 21:00 02/07/20 14:10 DC Insulin Detemir (Levemir Insulin) 22 units QHS SC 02/04/20 21:00 02/05/20 11:36 DC 02/04/20 21:15 Insulin Human Lispro (HumaLOG INSULIN) SEE PROTOCOL TABLE AC SC 02/04/20 17:30 02/17/20 12:07 Insulin Human Lispro (HumaLOG INSULIN) SEE PROTOCOL TABLE QHS SC 02/04/20 21:00 Lactobacillus Acidophilus (Bacid) 1 ea WMHS PO 02/04/20 18:00 02/17/20 13:12 Levetiracetam (Keppra) 250 mg QAM PO 02/05/20 09:00 02/17/20 10:00 Levetiracetam (Keppra) 500 mg BID PO 02/04/20 21:00 02/04/20 16:22 DC Levetiracetam (Keppra) 500 mg QHS PO 02/04/20 21:00 02/16/20 22:25 Magnesium Chloride (Slow-Mag) 64 mg BID PO 02/04/20 21:00 02/17/20 10:00 Miscellaneous (Unresolved Clarification Entry) SEE LABEL COMMENTS DAILY XX 02/08/20 09:00 02/09/20 08:49 DC Miscellaneous (Unresolved Clarification Entry) SEE LABEL COMMENTS DAILY XX 02/09/20 09:00 02/09/20 11:15 DC Pantoprazole Sodium (Protonix) 40 mg QHS PO 02/04/20 21:00 02/16/20 22:25 Polyethylene Glycol (Miralax) 1 pkt DAILYPRN PRN PO CONSTIPATION 02/17/20 10:15 02/17/20 12:00 Potassium Chloride/Sodium Chloride 1,000 ml @ 75 mls/hr [id number] IV 02/06/20 15:00 02/11/20 19:15 DC 02/11/20 04:15 Potassium Chloride (Micro-K Extencaps) 10 meq QHS PO 02/04/20 21:00 02/16/20 22:26 Pravastatin Sodium (Pravachol) 20 mg QHS PO 02/04/20 21:00 02/16/20 22:25 Risperidone (RisperDAL) 1 mg BID PO 02/04/20 21:00 02/17/20 10:00 Risperidone (RisperDAL) 1 mg QHS PO 02/04/20 21:00 02/04/20 16:22 DC Sodium Chloride 1,000 ml @ 75 mls/hr [id number] IV 02/04/20 17:00 02/05/20 11:36 DC 02/05/20 09:57 Tamsulosin HCl (Flomax) 0.4 mg DAILY PO 02/05/20 09:00 02/17/20 10:00 Tamsulosin HCl (Flomax) 0.8 mg DAILY PO 02/05/20 09:00 02/04/20 16:22 DC Allergies Coded Allergies: procaine (Verified Allergy, Severe, difficulty breathing, 02/04/20) Penicillins (Verified Allergy, Intermediate, swelling, 02/04/20) Lorna Agrawal MD Feb 17, 2020 16:05
[2020-02-17] MEDS: FINASTERIDE 5 MG TAB PO SCH (20:33)
[2020-02-17] MEDS: PANTOPRAZOLE 40MG TAB (PROTONIX) PO SCH (20:34)
[2020-02-17] MEDS: PRAVASTATIN 20 MG TAB PO SCH (20:34)
[2020-02-17] MEDS: POTASSIUM CHLORIDE 10 MEQ SR TABLET PO SCH (20:34)
[2020-02-17] MEDS: LEVEMIR (INSULIN DETEMIR) 1 UNITS/0.01ML SC SCH (20:35)
[2020-02-17 22:00] VITALS: BP 137/61
[2020-02-18 06:00] VITALS: BP 130/73
[2020-02-18 06:03] LABS: HEMATOCRIT 36.3 % (42.0-52.0); HEMOGLOBIN 11.6 g/dl (13.5-17.5); MEAN CORPUSCULAR HEMOGLOBIN 27.2 pg (27.0-33.0); PLATELET COUNT, AUTOMATED 102 10^3/uL (150-450); RED BLOOD COUNT 4.27 10^6/uL (4.30-6.10); WHITE BLOOD COUNT 6.7 10^3/uL (4.0-10.0)
[2020-02-18 06:28] LABS: ALBUMIN 2.8 GM/DL (3.2-5.2); BILIRUBIN,TOTAL 0.4 MG/DL (0.2-1.0); CALCIUM LEVEL 9.7 MG/DL (8.8-10.2); CREATININE FOR GFR 1.27 MG/DL (0.70-1.30); GLOMERULAR FILTRATION RATE 58.2 (>42); TOTAL PROTEIN 7.2 GM/DL (6.4-8.2)
[2020-02-18] MEDS: HumaLOG INSULIN (NovoLOG) PER UNIT SC SCH ×4 (07:30→20:27)
[2020-02-18] MEDS: risperiDONE 1 MG TAB PO SCH ×2 (08:59→20:25)
[2020-02-18] MEDS: TAMSULOSIN 0.4 MG CAP PO SCH (08:59)
[2020-02-18] MEDS: DOCUSATE SODIUM 100 MG CAP PO SCH ×2 (08:59→20:24)
[2020-02-18] MEDS: FAMOTIDINE 20 MG TAB PO SCH (08:59)
[2020-02-18] MEDS: bisoproloL fumarate 10 MG TAB PO SCH (08:59)
[2020-02-18] MEDS: MAGNESIUM CHLORIDE 64 MG TABCR (SLO MAG) PO SCH ×2 (08:59→20:25)
[2020-02-18] MEDS: LACTOBACILLUS ACIDOPHILUS CAP (BACID) PO SCH ×4 (08:59→20:25)
[2020-02-18] MEDS: levETIRAcetam 250MG TABLET (KEPPRA) PO SCH ×2 (08:59→20:25)
--- NOTE | 2020-02-18 11:36 | IPNPDOC ---
Subjective Date Seen The patient was seen on 02/18/20. Subjective Chief Complaint/HPI Patient comfortable in no distress. Offers no new complaints, awaiting COVID test as patient was exposed General: Denies: ROS Unobtainable, Chills, Night Sweats, Fatigue, Malaise, Normal Appetite, Other Symptoms Skin: Denies: Rash, Lesions, Jaundice, Bruising, Itching, Dry, Breakdown, Nail Changes, Other Pulmonary: Denies: Dyspnea, Cough, Pleuritic Chest Pain, Other Symptoms Cardiovascular: Denies: Chest Pain, Palpitations, Orthopnea, Paroxysmal Noc. Dy spnea, Edema, Lt Headedness, Other Symptoms Gastrointestinal: Denies: Nausea, Vomiting, Abdominal Pain, Diarrhea, Constipation, Melena, Hematochezia, Other Symptoms Endocrine: Denies: Polydipsia, Polyphagia, Polyuria, Heat Intolerance, Cold Intolerance, Other Endocrine Sx Musculoskeletal: Denies: Neck Pain, Back Pain, Shoulder Pain, Arm Pain, Hand Pain, Leg Pain, Foot Pain, Joint Pain, Muscle Pain, Spasms, Other Symptoms Neurological: Denies: Weakness, Numbness, Incoordination, Change in speech, Confusion, Seizures, Other Symptoms Objective Physical Examination ENT Exam: Positive: Atraumatic, Mucous membr. moist/pink Chest Exam: Positive: Clear to auscultation, Normal air movement Heart Exam: Positive: Rate Normal, Normal S1, Normal S2 Abdomen Exam: Positive: Normal bowel sounds, Soft Skin Exam: Positive: Nl turgor and temperature, Other skin issue (, flaky eczema noted on the face) Assessment /Plan Problems (1) Viral disease exposure Status: Acute Problem Text: Possible exposure to COVID19 virus Will order Covid 19. Testing to rule out infection Contact and droplet isolation , Tylenol when necessary (2) UTI (urinary tract infection) Status: Resolved Problem Text: Patient treated for UTI Asymptomatic at the present time , Status post Castro placement secondary to urinary retention (3) Cellulitis of left leg Status: Resolved Response to Treatment: Improving Problem Text: Can finished his treatment for cellulitis with IV antibiotics Continue observation (4) Benign prostatic hyperplasia with urinary retention Status: Chronic Problem Text: , Status post Castro catheter placement by urology secondary to urinary retention Further workup with urology as an outpatient, maintain Castro catheter in as per urology recommendations (5) Chronic ITP (idiopathic thrombocytopenia) Onset Date: ~ 2017 Status: Chronic Response to Treatment: Worse Problem Text: Patient's serum platelets 102 Recently received IVIG by Dr. Reddy for low platelets He was placed on the oral SYK tyrosine kinase inhibitor Tavalisse, and tolerated this well. 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 Treatment was therefore changed to weekly romiplostim. (6) Physical deconditioning Status: Chronic Problem Text: Once patient rules out Covid 19 infection. 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 Zimmer (10) HTN (hypertension) Status: Chronic Problem Text: stable on HD biso 10 (11) CAD S/P percutaneous coronary angioplasty Status: Chronic Response to Treatment: Stable Problem Text: no active symptoms on HD biso/clopid (12) Paroxysmal atrial fibrillation Status: Chronic Problem Text: biso for RC clopid as AP-held until plt >50 (13) DM2 (diabetes mellitus, type 2) Status: Chronic Response to Treatment: Stable Problem Text: Fingerstick blood sugar every before meals and at bedtime with coverage Continue present meds Plan/VTE VTE Prophylaxis Ordered?: No VTE Exclusion Mechanical Proph: Other (behavioral) VTE Exclusion Pharmacological: Thrombocytopenia Plan Anticipated Discharge: Home (on 02/12/20) VS, I&O, 24H, Fishbone Vital Signs/I&O Vital Signs Date Time Temp Pulse Resp B/P (MAP) Pulse Ox O2 Delivery O2 Flow Rate FiO2 02/18/20 06:00 98.3 63 18 130/73 (92) 99 Room Air I&O- Last 24 Hours up to 6 AM 02/18/20 05:59 Intake Total 1290 ml Output Total 725 ml Balance 565 ml Laboratory Data 24H LABS Laboratory Tests 2 02/17/20 11:40: Bedside Glucose (Misc Panel) 142H 02/17/20 16:23: Bedside Glucose (Misc Panel) 189H 02/17/20 20:18: Bedside Glucose (Misc Panel) 120H 02/18/20 05:48: Nucleated Red Blood Cells % (auto) 0.0, Anion Gap 8, Glomerular Filtration Rate 58.2, Calcium Level 9.7, Total Bilirubin 0.4, Aspartate Amino Transf (AST/SGOT) 16, Alanine Aminotransferase (ALT/SGPT) 14, Alkaline Phosphatase 105, Total Protein 7.2, Albumin 2.8L, Albumin/Globulin Ratio 0.64L 02/18/20 10:56: Bedside Glucose (Misc Panel) 148H CBC/BMP Laboratory Tests 02/18/20 05:48 Microbiology Microbiology 02/18/20 Respiratory Panel (PCR), Received Pending 02/08/20 Respiratory Virus Panel (PCR) (JORGE) - Final, Complete MYAH HAMMOND MD Feb 18, 2020 11:36
[2020-02-18 14:00] VITALS: BP 150/66
[2020-02-18] MEDS: PRAVASTATIN 20 MG TAB PO SCH (20:24)
[2020-02-18] MEDS: FINASTERIDE 5 MG TAB PO SCH (20:25)
[2020-02-18] MEDS: POTASSIUM CHLORIDE 10 MEQ SR TABLET PO SCH (20:25)
[2020-02-18] MEDS: PANTOPRAZOLE 40MG TAB (PROTONIX) PO SCH (20:25)
[2020-02-18] MEDS: ACETAMINOPHEN TAB 650MG DOSE (2X325MG) PO PRN (20:28)
[2020-02-18] MEDS: LEVEMIR (INSULIN DETEMIR) 1 UNITS/0.01ML SC SCH (20:29)
[2020-02-18 22:00] VITALS: BP 127/59
[2020-02-19] MEDS: ALPRAZolam 0.5 MG TAB PO PRN (03:48)
[2020-02-19] MEDS: ACETAMINOPHEN TAB 650MG DOSE (2X325MG) PO PRN ×2 (04:21→18:16)
[2020-02-19 06:00] VITALS: BP 129/59
[2020-02-19] MEDS: HumaLOG INSULIN (NovoLOG) PER UNIT SC SCH ×4 (07:30→21:00)
[2020-02-19] MEDS: MAGNESIUM CHLORIDE 64 MG TABCR (SLO MAG) PO SCH ×2 (08:48→22:16)
[2020-02-19] MEDS: risperiDONE 1 MG TAB PO SCH ×2 (08:48→22:17)
[2020-02-19] MEDS: LACTOBACILLUS ACIDOPHILUS CAP (BACID) PO SCH ×4 (08:48→22:16)
[2020-02-19] MEDS: DOCUSATE SODIUM 100 MG CAP PO SCH ×2 (08:48→22:18)
[2020-02-19] MEDS: FAMOTIDINE 20 MG TAB PO SCH (08:48)
[2020-02-19] MEDS: levETIRAcetam 250MG TABLET (KEPPRA) PO SCH ×2 (08:48→22:17)
[2020-02-19] MEDS: TAMSULOSIN 0.4 MG CAP PO SCH (08:48)
[2020-02-19] MEDS: bisoproloL fumarate 10 MG TAB PO SCH (08:51)
--- NOTE | 2020-02-19 09:51 | IPNPDOC ---
Subjective Date Seen The patient was seen on 02/19/20. Subjective Chief Complaint/HPI Patient is lethargic today. A small solid to painful stimuli, but opens his eyes, does not response to vocal command, patient gets these periods of catatonia on and off General: Reports: ROS Unobtainable Objective Physical Examination Chest Exam: Positive: Clear to auscultation, Normal air movement Heart Exam: Positive: Rate Normal, Normal S1, Normal S2 Abdomen Exam: Positive: Normal bowel sounds, Soft Skin Exam: Positive: Nl turgor and temperature, Other skin issue (, flaky eczema noted on the face) Assessment /Plan Problems (1) Viral disease exposure Status: Acute Problem Text: Possible exposure to COVID19 virus, doubt acute infection Covid 19 Testing has been ordered. Awaiting report Will DC contact and droplet isolation. 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 Reddy for low platelets He was placed on the oral SYK tyrosine kinase inhibitor Tavalisse, and tolerated this well. However, he had obtained this medication through a financial services manager program, which in November 2019. Treatment was therefore changed to weekly romiplostim. (6) Physical deconditioning Status: Chronic Problem Text: Once patient rules out Covid 19 infection. 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 Zimmer (10) HTN (hypertension) Status: Chronic Problem Text: stable on HD biso 10 (11) CAD S/P percutaneous coronary angioplasty Status: Chronic Response to Treatment: Stable Problem Text: no active symptoms on HD biso/clopid (12) Paroxysmal atrial fibrillation Status: Chronic Problem Text: biso for RC clopid as AP-held until plt >50 (13) DM2 (diabetes mellitus, type 2) Status: Chronic Response to Treatment: Stable Problem Text: Fingerstick blood sugar every before meals and at bedtime with coverage Continue present meds Plan/VTE VTE Prophylaxis Ordered?: Yes VTE Exclusion Mechanical Proph: Other (behavioral) VTE Exclusion Pharmacological: Thrombocytopenia Plan Anticipated Discharge: Home (on 02/12/20) VS, I&O, 24H, Fishbone Vital Signs/I&O Vital Signs Date Time Temp Pulse Resp B/P (MAP) Pulse Ox O2 Delivery O2 Flow Rate FiO2 02/19/20 08:51 64 158/92 02/19/20 06:00 98.0 18 99 Room Air I&O- Last 24 Hours up to 6 AM 02/19/20 06:00 Intake Total 786 ml Output Total 1050 ml Balance -264 ml Laboratory Data 24H LABS Laboratory Tests 2 02/18/20 10:56: Bedside Glucose (Misc Panel) 148H 02/18/20 16:29: Bedside Glucose (Misc Panel) 170H 02/18/20 20:27: Bedside Glucose (Misc Panel) 132H 02/19/20 07:44: Bedside Glucose (Misc Panel) 159H Microbiology Microbiology 02/18/20 Coronavirus COVID-19 PCR (JORGE), Received Pending 02/18/20 Respiratory Panel (PCR) - Final, Complete MYAH HAMMOND MD Feb 19, 2020 09:51
[2020-02-19 14:00] VITALS: BP 155/70
[2020-02-19 22:00] VITALS: BP 164/67
[2020-02-19] MEDS: LEVEMIR (INSULIN DETEMIR) 1 UNITS/0.01ML SC SCH (22:16)
[2020-02-19] MEDS: FINASTERIDE 5 MG TAB PO SCH (22:17)
[2020-02-19] MEDS: PANTOPRAZOLE 40MG TAB (PROTONIX) PO SCH (22:18)
[2020-02-19] MEDS: PRAVASTATIN 20 MG TAB PO SCH (22:18)
[2020-02-19] MEDS: POTASSIUM CHLORIDE 10 MEQ SR TABLET PO SCH (22:18)
[2020-02-20] MEDS: ALPRAZolam 0.5 MG TAB PO PRN ×2 (02:34→20:15)
[2020-02-20] MEDS: NORCO, ANEXSIA 5/325MG TABLET (HYDROcodone/ACETAMINOPHEN) PO PRN (04:45)
[2020-02-20 05:50] LABS: HEMATOCRIT 34.2 % (42.0-52.0); MEAN CORPUSCULAR HEMOGLOBIN 27.6 pg (27.0-33.0); MEAN CORPUSCULAR HGB CONC 32.2 g/dl (32.0-36.5); MEAN CORPUSCULAR VOLUME 85.7 fl (80.0-96.0); RED BLOOD COUNT 3.99 10^6/uL (4.30-6.10); WHITE BLOOD COUNT 5.5 10^3/uL (4.0-10.0)
[2020-02-20 06:00] VITALS: BP 163/68
[2020-02-20 06:03] LABS: ALBUMIN 2.9 GM/DL (3.2-5.2); ALT/SGPT 15 U/L (12-78); BILIRUBIN,TOTAL 0.4 MG/DL (0.2-1.0); BLOOD UREA NITROGEN 20 MG/DL (7-18); CALCIUM LEVEL 9.2 MG/DL (8.8-10.2); CARBON DIOXIDE LEVEL 24 MEQ/L (21-32); CHLORIDE LEVEL 108 MEQ/L (98-107); CREATININE FOR GFR 1.12 MG/DL (0.70-1.30); GLOMERULAR FILTRATION RATE > 60.0 (>42); GLUCOSE, FASTING 158 MG/DL (70-100); POTASSIUM SERUM 3.8 MEQ/L (3.5-5.1); SODIUM LEVEL 140 MEQ/L (136-145)
[2020-02-20 06:09] LABS: PLATELET COUNT, AUTOMATED 59 10^3/uL (150-450)
[2020-02-20] MEDS: HumaLOG INSULIN (NovoLOG) PER UNIT SC SCH ×4 (07:30→21:00)
[2020-02-20] MEDS: LACTOBACILLUS ACIDOPHILUS CAP (BACID) PO SCH ×4 (08:00→20:15)
[2020-02-20] MEDS: levETIRAcetam 250MG TABLET (KEPPRA) PO SCH ×2 (09:00→20:15)
[2020-02-20] MEDS: risperiDONE 1 MG TAB PO SCH ×2 (09:00→20:15)
[2020-02-20] MEDS: MAGNESIUM CHLORIDE 64 MG TABCR (SLO MAG) PO SCH ×2 (09:00→20:16)
[2020-02-20] MEDS: bisoproloL fumarate 10 MG TAB PO SCH (09:00)
[2020-02-20] MEDS: DOCUSATE SODIUM 100 MG CAP PO SCH ×2 (09:00→20:15)
[2020-02-20] MEDS: TAMSULOSIN 0.4 MG CAP PO SCH (09:00)
[2020-02-20] MEDS: FAMOTIDINE 20 MG TAB PO SCH (09:00)
--- NOTE | 2020-02-20 10:34 | IPNPDOC ---
Subjective Date Seen The patient was seen on 02/20/20. Subjective Chief Complaint/HPI Patient is stable, comfortable, in no distress General: Reports: ROS Unobtainable Objective Physical Examination Chest Exam: Positive: Clear to auscultation, Normal air movement Heart Exam: Positive: Rate Normal, Normal S1, Normal S2 Abdomen Exam: Positive: Normal bowel sounds, Soft Skin Exam: Positive: Nl turgor and temperature, Other skin issue (, flaky eczema noted on the face) Assessment /Plan Problems (1) Viral disease exposure Status: Acute Problem Text: Possible exposure to COVID19 virus, doubt acute infection Awaiting report. for COVID-19 test Will DC contact and droplet isolation. 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 Reddy for low platelets He was placed on the oral SYK tyrosine kinase inhibitor Tavalisse, and tolerated this well. However, he had obtained this medication through a referral and information aide program, which in November 2019. Treatment was therefore changed to weekly romiplostim. Patient's platelet count today is 59,000. Will call Dr. Reddy for further recommendations (6) Physical deconditioning Status: Chronic Problem Text: Once patient rules out Covid 19 infection. He possibly will be candidate for placement of home with home care depends on PT evaluation (7) Vascular dementia Status: Chronic Problem Text: Patient is currently not aggressive Continue present meds (8) Seizure disorder Status: Chronic Response to Treatment: Stable Problem Text: on active sz on HD leve 250/500 ( admits often refuses to take at home) 02/03 wilmer 6 (9) Primary adenocarcinoma of ascending colon and hepatic flexure Onset Date: ~ 06/2018 Status: Acute Problem Text: Follow with Dr. Zimmer (10) HTN (hypertension) Status: Chronic Problem Text: stable on HD biso 10 (11) CAD S/P percutaneous coronary angioplasty Status: Chronic Response to Treatment: Stable Problem Text: no active symptoms on HD biso/clopid (12) Paroxysmal atrial fibrillation Status: Chronic Problem Text: biso for RC clopid as AP-held until plt >50 (13) DM2 (diabetes mellitus, type 2) Status: Chronic Response to Treatment: Stable Problem Text: Fingerstick blood sugar every before meals and at bedtime with coverage Continue present meds Plan/VTE VTE Prophylaxis Ordered?: Yes VTE Exclusion Mechanical Proph: Other (behavioral) VTE Exclusion Pharmacological: Thrombocytopenia Plan Anticipated Discharge: Home (on 02/12/20) VS, I&O, 24H, Fishbone Vital Signs/I&O Vital Signs Date Time Temp Pulse Resp B/P (MAP) Pulse Ox O2 Delivery O2 Flow Rate FiO2 02/20/20 06:00 98.6 68 16 163/68 (99) 98 Room Air I&O- Last 24 Hours up to 6 AM 02/20/20 06:00 Intake Total 840 ml Output Total 1000 ml Balance -160 ml Laboratory Data 24H LABS Laboratory Tests 2 02/19/20 11:21: Bedside Glucose (Misc Panel) 152H 02/19/20 17:01: Bedside Glucose (Misc Panel) 161H 02/19/20 21:28: Bedside Glucose (Misc Panel) 152H 02/20/20 05:12: Nucleated Red Blood Cells % (auto) 0.0, Immature Platelet Fraction 13.0H, Anion Gap 8, Glomerular Filtration Rate > 60.0, Calcium Level 9.2, Total Bilirubin 0 .4, Aspartate Amino Transf (AST/SGOT) 15, Alanine Aminotransferase (ALT/SGPT) 15, Alkaline Phosphatase 96, Total Protein 7.0, Albumin 2.9L, Albumin/Globulin Ratio 0.71L CBC/BMP Laboratory Tests 02/20/20 05:12 Microbiology Microbiology 02/18/20 Coronavirus COVID-19 PCR (JORGE), Received Pending 02/18/20 Respiratory Panel (PCR) - Final, Complete MYAH HAMMOND MD Feb 20, 2020 10:34
[2020-02-20] MEDS: HALOPERIDOL 5 MG/ML VIAL (J1630) IM PRN (10:42)
[2020-02-20] MEDS ORDERED: IMMUNE GLOBULIN 10% 20 GM in IV 1 EA IV SCH (11:45)
[2020-02-20] MEDS ORDERED: IMMUNE GLOBULIN 10% 20 GM in IV 1 EA IV ONE (13:00)
[2020-02-20] MEDS ORDERED: LORazepam 2 MG/ML VIAL (J2060) As Ordered ONE (13:58)
[2020-02-20] MEDS ORDERED: LORazepam 2 MG/ML VIAL (J2060) IM PRN (14:00)
[2020-02-20 17:06] VITALS: BP 149/72
[2020-02-20 17:36] VITALS: BP 146/72
[2020-02-20] MEDS ORDERED: LORazepam 2 MG/ML VIAL (J2060) IV PRN (20:00)
[2020-02-20 20:15] VITALS: BP 132/72
[2020-02-20] MEDS: LEVEMIR (INSULIN DETEMIR) 1 UNITS/0.01ML SC SCH (20:15)
[2020-02-20] MEDS: FINASTERIDE 5 MG TAB PO SCH (20:15)
[2020-02-20] MEDS: PRAVASTATIN 20 MG TAB PO SCH (20:15)
[2020-02-20] MEDS: PANTOPRAZOLE 40MG TAB (PROTONIX) PO SCH (20:16)
[2020-02-20] MEDS: ACETAMINOPHEN TAB 650MG DOSE (2X325MG) PO PRN (20:16)
[2020-02-20] MEDS: POTASSIUM CHLORIDE 10 MEQ SR TABLET PO SCH (20:16)
[2020-02-20 20:48] LABS: CK-MB VALUE MASS 2.6 NG/ML (<3.6); CPK CREATINE PHOSPHOKINASE 76 U/L (39-308); MB/CK RELATIVE INDEX 3.42 (< OR =4); TROPONIN I < 0.02 NG/ML (< 0.10)
[2020-02-20 22:00] VITALS: BP 131/72
[2020-02-21 03:31] LABS: HEMATOCRIT 33.1 % (42.0-52.0); HEMOGLOBIN 10.5 g/dl (13.5-17.5); MEAN CORPUSCULAR HEMOGLOBIN 26.9 pg (27.0-33.0); MEAN CORPUSCULAR HGB CONC 31.7 g/dl (32.0-36.5); MEAN CORPUSCULAR VOLUME 84.9 fl (80.0-96.0); WHITE BLOOD COUNT 5.4 10^3/uL (4.0-10.0)
[2020-02-21 03:33] LABS: PLATELET COUNT, AUTOMATED 57 10^3/uL (150-450)
[2020-02-21 03:46] LABS: ALBUMIN 2.8 GM/DL (3.2-5.2); ALT/SGPT 16 U/L (12-78); BILIRUBIN,TOTAL 0.4 MG/DL (0.2-1.0); BLOOD UREA NITROGEN 18 MG/DL (7-18); CALCIUM LEVEL 9.3 MG/DL (8.8-10.2); CARBON DIOXIDE LEVEL 25 MEQ/L (21-32); CHLORIDE LEVEL 108 MEQ/L (98-107); CREATININE FOR GFR 0.93 MG/DL (0.70-1.30); GLOMERULAR FILTRATION RATE > 60.0 (>42); GLUCOSE, FASTING 104 MG/DL (70-100); POTASSIUM SERUM 3.9 MEQ/L (3.5-5.1); SODIUM LEVEL 140 MEQ/L (136-145); TOTAL PROTEIN 7.4 GM/DL (6.4-8.2)
[2020-02-21 03:56] LABS: CK-MB VALUE MASS 1.6 NG/ML (<3.6); CPK CREATINE PHOSPHOKINASE 60 U/L (39-308); MB/CK RELATIVE INDEX 2.67 (< OR =4); TROPONIN I < 0.02 NG/ML (< 0.10)
[2020-02-21 06:00] VITALS: BP 142/64
--- NOTE | 2020-02-21 06:53 | ECGEPIP ---
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
[2020-02-21] MEDS: HumaLOG INSULIN (NovoLOG) PER UNIT SC SCH ×4 (07:30→21:00)
[2020-02-21] MEDS: LACTOBACILLUS ACIDOPHILUS CAP (BACID) PO SCH ×4 (08:00→21:00)
[2020-02-21] MEDS: FAMOTIDINE 20 MG TAB PO SCH (09:00)
[2020-02-21] MEDS: DOCUSATE SODIUM 100 MG CAP PO SCH ×2 (09:00→21:00)
[2020-02-21] MEDS: TAMSULOSIN 0.4 MG CAP PO SCH ×2 (09:00→14:03)
[2020-02-21] MEDS: bisoproloL fumarate 10 MG TAB PO SCH ×2 (09:00→14:04)
[2020-02-21] MEDS: levETIRAcetam 250MG TABLET (KEPPRA) PO SCH ×3 (09:00→21:00)
[2020-02-21] MEDS: risperiDONE 1 MG TAB PO SCH ×3 (09:00→21:00)
[2020-02-21] MEDS: MAGNESIUM CHLORIDE 64 MG TABCR (SLO MAG) PO SCH ×2 (09:00→21:00)
--- NOTE | 2020-02-21 09:27 | IPNPDOC ---
Subjective Date Seen The patient was seen on 02/21/20. Subjective Chief Complaint/HPI Patient is sleeping comfortably in no apparent distress has been agitated since last 2 days General: Reports: ROS Unobtainable Objective Physical Examination Chest Exam: Positive: Clear to auscultation, Normal air movement Heart Exam: Positive: Rate Normal, Normal S1, Normal S2 Abdomen Exam: Positive: Normal bowel sounds, Soft Skin Exam: Positive: Nl turgor and temperature, Other skin issue (, flaky eczema noted on the face) Assessment /Plan Problems (1) Viral disease exposure Status: Acute Problem Text: Possible exposure to COVID19 virus, doubt acute infection COVID-19 test report is still pending Will DC contact and droplet isolation. 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 Reddy for low platelets He was placed on the oral SYK tyrosine kinase inhibitor Tavalisse, and tolerated this well. However, he had obtained this medication through a financial aid coordinator program, which in November 2019. Treatment was therefore changed to weekly romiplostim. Patient's platelet count is 57,000 after transfusion of IVIG after speaking with Dr. Reddy yesterday . We'll continue monitoring patient's platelets and will call hematology if n eeded (6) Physical deconditioning Status: Chronic Problem Text: Once patient rules out Covid 19 infection. 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 Zimmer (10) HTN (hypertension) Status: Chronic Problem Text: stable on HD biso 10 (11) CAD S/P percutaneous coronary angioplasty Status: Chronic Response to Treatment: Stable Problem Text: no active symptoms on HD biso/clopid (12) Paroxysmal atrial fibrillation Status: Chronic Problem Text: biso for RC clopid as AP-held until plt >50 (13) DM2 (diabetes mellitus, type 2) Status: Chronic Response to Treatment: Stable Problem Text: Fingerstick blood sugar every before meals and at bedtime with coverage Continue present meds Plan/VTE VTE Prophylaxis Ordered?: Yes VTE Exclusion Mechanical Proph: Other (behavioral) VTE Exclusion Pharmacological: Thrombocytopenia Plan Anticipated Discharge: Home (on 02/12/20) VS, I&O, 24H, [facility] Vital Signs/I&O Vital Signs Date Time Temp Pulse Resp B/P (MAP) Pulse Ox O2 Delivery O2 Flow Rate FiO2 02/21/20 06:00 98.4 67 17 142/64 (90) 97 Room Air I&O- Last 24 Hours up to 6 AM 02/21/20 06:00 Intake Total 480 ml Output Total 425 ml Balance 55 ml Laboratory Data 24H LABS Laboratory Tests 2 02/20/20 11:30: Bedside Glucose (Misc Panel) 133H 02/20/20 17:00: Bedside Glucose (Misc Panel) 125H 02/20/20 20:00: Bedside Glucose (Misc Panel) 152H 02/20/20 20:09: Total Creatine Kinase 76, Creatine Kinase MB 2.6, Creatine Kinase MB Relative Index 3.42, Troponin I < 0.02 02/21/20 03:09: Nucleated Red Blood Cells % (auto) 0.0, Anion Gap 7L, Glomerular Filtration Rate > 60.0, Calcium Level 9.3, Total Bilirubin 0.4, Aspartate Amino Transf (AST/SGOT) 18, Alanine Aminotransferase (ALT/SGPT) 16, Alkaline Phosphatase 82, Total Creatine Kinase 60, Creatine Kinase MB 1.6, Creatine Kinase MB Relative Index 2.67, Troponin I < 0.02, Total Protein 7.4, Albumin 2.8L, Albumin/Globulin Ratio 0.61L 02/21/20 05:45: Bedside Glucose (Misc Panel) 138H CBC/BMP Laboratory Tests 02/21/20 03:09 Microbiology Microbiology 02/18/20 Coronavirus COVID-19 PCR (JORGE), Received Pending 02/18/20 Respiratory Panel (PCR) - Final, Complete MYAH HAMMOND MD Feb 21, 2020 09:27
[2020-02-21 12:51] LABS: PLTBLUE- EDTA FREE CALC 57 K/mm3 (172-450)
[2020-02-21 13:15] LABS: PLATELET COUNT, AUTOMATED 63 10^3/uL (150-450)
[2020-02-21 13:16] LABS: PLTBLUE- EDTA FREE MACHINE 52 10^3/uL (172-450)
[2020-02-21 14:00] VITALS: BP 139/64
[2020-02-21] MEDS: FINASTERIDE 5 MG TAB PO SCH (21:00)
[2020-02-21] MEDS: LEVEMIR (INSULIN DETEMIR) 1 UNITS/0.01ML SC SCH (21:00)
[2020-02-21] MEDS: PANTOPRAZOLE 40MG TAB (PROTONIX) PO SCH (21:00)
[2020-02-21] MEDS: POTASSIUM CHLORIDE 10 MEQ SR TABLET PO SCH (21:00)
[2020-02-21] MEDS: PRAVASTATIN 20 MG TAB PO SCH (21:00)
[2020-02-21 22:00] VITALS: BP 131/74
[2020-02-22 06:00] VITALS: BP 124/68
[2020-02-22 06:36] LABS: BASO # 0.1 10^3/uL (0.0-0.2); BASO % 0.9 % (0.0-1.0); EOS # 0.1 10^3/uL (0.0-0.5); EOS % 1.1 % (0.0-3.0); HEMATOCRIT 34.3 % (42.0-52.0); LYMPH # 1.4 10^3/uL (1.5-5.0); LYMPH % 24.8 % (24.0-44.0); MEAN CORPUSCULAR HEMOGLOBIN 27.4 pg (27.0-33.0); MEAN CORPUSCULAR HGB CONC 32.1 g/dl (32.0-36.5); MEAN CORPUSCULAR VOLUME 85.3 fl (80.0-96.0); MONO # 0.6 10^3/uL (0.0-0.8); MONO % 10.4 % (0.0-5.0); NEUTROPHILS # 3.4 10^3/uL (1.5-8.5); NEUTROPHILS % 62.6 % (36.0-66.0); RED BLOOD COUNT 4.02 10^6/uL (4.30-6.10); WHITE BLOOD COUNT 5.5 10^3/uL (4.0-10.0)
[2020-02-22 06:54] LABS: PLATELET COUNT, AUTOMATED 48 10^3/uL (150-450)
[2020-02-22 06:56] LABS: ALBUMIN 2.8 GM/DL (3.2-5.2); ALT/SGPT 16 U/L (12-78); BILIRUBIN,TOTAL 0.6 MG/DL (0.2-1.0); BLOOD UREA NITROGEN 17 MG/DL (7-18); CALCIUM LEVEL 9.5 MG/DL (8.8-10.2); CARBON DIOXIDE LEVEL 25 MEQ/L (21-32); CHLORIDE LEVEL 107 MEQ/L (98-107); CREATININE FOR GFR 1.05 MG/DL (0.70-1.30); GLOMERULAR FILTRATION RATE > 60.0 (>42); GLUCOSE, FASTING 111 MG/DL (70-100); POTASSIUM SERUM 3.6 MEQ/L (3.5-5.1); SODIUM LEVEL 137 MEQ/L (136-145); TOTAL PROTEIN 7.1 GM/DL (6.4-8.2)
[2020-02-22] MEDS: HumaLOG INSULIN (NovoLOG) PER UNIT SC SCH ×4 (07:30→21:00)
[2020-02-22] MEDS: LACTOBACILLUS ACIDOPHILUS CAP (BACID) PO SCH ×4 (08:00→19:53)
[2020-02-22] MEDS: MAGNESIUM CHLORIDE 64 MG TABCR (SLO MAG) PO SCH ×2 (09:00→19:54)
[2020-02-22] MEDS: DOCUSATE SODIUM 100 MG CAP PO SCH ×2 (09:00→19:54)
[2020-02-22] MEDS: risperiDONE 1 MG TAB PO SCH ×2 (09:01→19:53)
[2020-02-22] MEDS: levETIRAcetam 250MG TABLET (KEPPRA) PO SCH ×2 (09:01→19:53)
[2020-02-22] MEDS: TAMSULOSIN 0.4 MG CAP PO SCH (09:02)
[2020-02-22] MEDS: bisoproloL fumarate 10 MG TAB PO SCH (09:02)
[2020-02-22] MEDS: FAMOTIDINE 20 MG TAB PO SCH (09:05)
--- NOTE | 2020-02-22 09:26 | IPNPDOC ---
Subjective Date Seen The patient was seen on 02/22/20. Subjective Chief Complaint/HPI Patient is awake, alert, very pleasant, offers no new complaints General: Denies: ROS Unobtainable, Chills, Night Sweats, Fatigue, Malaise, Normal Appetite, Other Symptoms Constitutional: Denies: Chills, Fever, Malaise, Night Sweats, Weakness, Fatigue, Weight Loss, Lethargy, Other Pulmonary: Denies: Dyspnea, Cough, Pleuritic Chest Pain, Other Symptoms Cardiovascular: Denies: Chest Pain, Palpitations, Orthopnea, Paroxysmal Noc. Dyspnea, Edema, Lt Headedness, Other Symptoms Gastrointestinal: Denies: Nausea, Vomiting, Abdominal Pain, Diarrhea, Constipation, Melena, Hematochezia, Other Symptoms Musculoskeletal: Denies: Neck Pain, Back Pain, Shoulder Pain, Arm Pain, Hand Pain, Leg Pain, Foot Pain, Joint Pain, Muscle Pain, Spasms, Other Symptoms Neurological: Denies: Weakness, Numbness, Incoordination, Change in speech, Confusion, Seizures, Other Symptoms Objective Physical Examination General Exam: Positive: Alert, Cooperative Chest Exam: Positive: Clear to auscultation, Normal air movement Heart Exam: Positive: Rate Normal, Normal S1, Normal S2 Abdomen Exam: Positive: Normal bowel sounds, Soft Extremity Exam: Positive: Normal pulses Skin Exam: Positive: Nl turgor and temperature, Other skin issue (, flaky eczema noted on the face) Neuro Exam: Positive: Strength at 5/5 X4 ext, Sensation Intact Assessment /Plan Problems (1) Viral disease exposure Status: Acute Problem Text: COVID-19 ruled out Isolation has been DC'd Discussed with patient's , Charline over the phone and updated on patient's medical status was provided to her She wishes patient to be discharged as soon as possible, I discussed with her that I spoke with Dr. Luna from hematology and as per Dr. Andre IVIG can take up to 2 weeks to work, he advised me to follow patient for one more day and repeat platelets level in a.m. 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 Reddy for low platelets He was placed on the oral SYK tyrosine kinase inhibitor Tavalisse, and tolerated this well. However, he had obtained this medication through a financial foundations representative program, which in November 2019. Treatment was therefore changed to weekly romiplostim. Discussed with Dr Nguyễn today Will monitor platelet levels and if there is stable no evidence of bleeding, then he will be discharged home tomorrow and further follow-up with Dr. Reddy as an outpatient (6) Physical deconditioning Status: Chronic Problem Text: Once patient rules out Covid 19 infection. 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 Zimmer (10) HTN (hypertension) Status: Chronic Problem Text: stable on HD biso 10 (11) CAD S/P percutaneous coronary angioplasty Status: Chronic Response to Treatment: Stable Problem Text: no active symptoms on HD biso/clopid (12) Paroxysmal atrial fibrillation Status: Chronic Problem Text: biso for RC clopid as AP-held until plt >50 (13) DM2 (diabetes mellitus, type 2) Status: Chronic Response to Treatment: Stable Problem Text: Fingerstick blood sugar every before meals and at bedtime with coverage Continue present meds Plan/VTE VTE Prophylaxis Ordered?: Yes VTE Exclusion Mechanical Proph: Other (behavioral) VTE Exclusion Pharmacological: Thrombocytopenia Plan Anticipated Discharge: Home (on 02/12/20) VS, I&O, 24H, Fishbone Vital Signs/I&O Vital Signs Date Time Temp Pulse Resp B/P (MAP) Pulse Ox O2 Delivery O2 Flow Rate FiO2 02/22/20 09:02 70 124/68 02/22/20 06:00 98.9 18 98 Room Air I&O- Last 24 Hours up to 6 AM 02/22/20 05:59 Intake Total 610 ml Output Total 850 ml Balance -240 ml Laboratory Data 24H LABS Laboratory Tests 2 02/21/20 12:00: Bedside Glucose (Misc Panel) 114H 02/21/20 12:02: Bedside Glucose (Misc Panel) 125H 02/21/20 12:26: Platelet Count, EDTA Free 57L 02/21/20 12:33: Immature Platelet Fraction 02/21/20 22:43: Bedside Glucose (Misc Panel) 128H 02/22/20 06:09: Immature Granulocyte % (Auto) 0.2, Neutrophils (%) (Auto) 62.6, Lymphocytes (%) (Auto) 24.8, Monocytes (%) (Auto) 10.4H, Eosinophils (%) (Auto) 1.1, Basophils (%) (Auto) 0.9, Neutrophils # (Auto) 3.4, Lymphocytes # (Auto) 1.4L, Monocytes # (Auto) 0.6, Eosinophils # (Auto) 0.1, Basophils # (Auto) 0.1, Nucleated Red Blood Cells % (auto) 0.0, Anion Gap 5L, Glomerular Filtration Rate > 60.0, Calcium Level 9.5, Total Bilirubin 0.6, Aspartate Amino Transf (AST/SGOT) 20, Alanine Aminotransferase (ALT/SGPT) 16, Alkaline Phosphatase 84, Total Protein 7.1, Albumin 2.8L, Albumin/Globulin Ratio 0.65L CBC/BMP Laboratory Tests 02/21/20 12:33 02/22/20 06:09 Microbiology Microbiology 02/18/20 Coronavirus COVID-19 PCR (JORGE) - Final, Complete 02/18/20 Respiratory Panel (PCR) - Final, Complete MYAH HAMMOND MD Feb 22, 2020 09:26
--- NOTE | 2020-02-22 09:26 | MEDONCTEEN ---
Date/Time of Encounter Date of Encounter: Feb 22, 2020 Time of Encounter: 09:00 Telephone Encounter Hematology/Oncology Case discussed with Dr. Gongora Laboratory data and treatment history for biopsy proven (2017) chronic ITP reviewed Responds to IV IgG. Just had 2 grams/kg administered. Can take more than 2 weeks to see full effect Steroid responsive Was on weekly romiplostim as outpatient Responded to fostamatinib but unable to obtain more Eltrombopag also an option While an inpatient, would continue to follow platelet count Would not give any addition treatments at this time unless has active, uncontrolled, life threatening bleeding or if platelet count drops below 15-20K Incidence of increased bleeding does not increase in this setting until platelet count less than 10K or really less than 5K. Still fatal bleeding is rare as the young platelets present in patients body are very "sticky" If additional treatment need and no active bacterial infection present, can use decadron 40mg PO daily x 4 days Call back with any questions SEAN CRAMER MD Feb 22, 2020 09:26
[2020-02-22] MEDS: ACETAMINOPHEN TAB 650MG DOSE (2X325MG) PO PRN (11:57)
[2020-02-22 14:00] VITALS: BP 140/65
[2020-02-22] MEDS: POTASSIUM CHLORIDE 10 MEQ SR TABLET PO SCH (19:53)
[2020-02-22] MEDS: PRAVASTATIN 20 MG TAB PO SCH (19:53)
[2020-02-22] MEDS: FINASTERIDE 5 MG TAB PO SCH (19:53)
[2020-02-22] MEDS: PANTOPRAZOLE 40MG TAB (PROTONIX) PO SCH (19:53)
[2020-02-22] MEDS: LEVEMIR (INSULIN DETEMIR) 1 UNITS/0.01ML SC SCH (21:00)
[2020-02-22 22:00] VITALS: BP 110/63
[2020-02-22] MEDS: ALPRAZolam 0.5 MG TAB PO PRN (23:13)
[2020-02-23 06:00] VITALS: BP 130/64
[2020-02-23] MEDS: HumaLOG INSULIN (NovoLOG) PER UNIT SC SCH ×4 (07:30→20:38)
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
[2020-02-23] MEDS: LACTOBACILLUS ACIDOPHILUS CAP (BACID) PO SCH ×4 (10:30→20:25)
[2020-02-23] MEDS: risperiDONE 1 MG TAB PO SCH ×2 (10:32→20:25)
[2020-02-23] MEDS: levETIRAcetam 250MG TABLET (KEPPRA) PO SCH ×2 (10:34→20:25)
[2020-02-23] MEDS: FAMOTIDINE 20 MG TAB PO SCH (10:34)
[2020-02-23] MEDS: DOCUSATE SODIUM 100 MG CAP PO SCH ×2 (12:41→20:25)
[2020-02-23] MEDS: MAGNESIUM CHLORIDE 64 MG TABCR (SLO MAG) PO SCH ×2 (12:42→20:24)
[2020-02-23] MEDS: TAMSULOSIN 0.4 MG CAP PO SCH (12:42)
[2020-02-23] MEDS: bisoproloL fumarate 10 MG TAB PO SCH (12:52)
[2020-02-23 18:51] LABS: PLTBLUE- EDTA FREE CALC 29 K/mm3 (172-450)
[2020-02-23 18:52] LABS: PLTBLUE- EDTA FREE MACHINE 26 10^3/uL (172-450)
[2020-02-23] MEDS: FINASTERIDE 5 MG TAB PO SCH (20:24)
[2020-02-23] MEDS: ALPRAZolam 0.5 MG TAB PO PRN (20:24)
[2020-02-23] MEDS: PRAVASTATIN 20 MG TAB PO SCH (20:25)
[2020-02-23] MEDS: PANTOPRAZOLE 40MG TAB (PROTONIX) PO SCH (20:25)
[2020-02-23] MEDS: POTASSIUM CHLORIDE 10 MEQ SR TABLET PO SCH (20:25)
[2020-02-23] MEDS: LEVEMIR (INSULIN DETEMIR) 1 UNITS/0.01ML SC SCH (20:36)
[2020-02-24] VITALS (9 sets, daily range): BP systolic 107–142; BP diastolic 59–67
[2020-02-24 06:11] LABS: BASO # 0.1 10^3/uL (0.0-0.2); BASO % 0.9 % (0.0-1.0); EOS # 0.1 10^3/uL (0.0-0.5); EOS % 2.3 % (0.0-3.0); HEMATOCRIT 34.4 % (42.0-52.0); HEMOGLOBIN 10.8 g/dl (13.5-17.5); LYMPH % 34.2 % (24.0-44.0); MEAN CORPUSCULAR HEMOGLOBIN 26.8 pg (27.0-33.0); MEAN CORPUSCULAR HGB CONC 31.4 g/dl (32.0-36.5); MEAN CORPUSCULAR VOLUME 85.4 fl (80.0-96.0); MONO # 0.6 10^3/uL (0.0-0.8); MONO % 10.5 % (0.0-5.0); NEUTROPHILS % 51.9 % (36.0-66.0); RED BLOOD COUNT 4.03 10^6/uL (4.30-6.10); WHITE BLOOD COUNT 5.7 10^3/uL (4.0-10.0)
[2020-02-24 06:16] LABS: PLTBLUE- EDTA FREE CALC 23 K/mm3 (172-450)
[2020-02-24 06:41] LABS: PLATELET COUNT, AUTOMATED 21 10^3/uL (150-450)
[2020-02-24 06:45] LABS: PLTBLUE- EDTA FREE MACHINE 21 10^3/uL (172-450)
[2020-02-24] MEDS: HumaLOG INSULIN (NovoLOG) PER UNIT SC SCH ×4 (08:45→21:00)
[2020-02-24] MEDS: MAGNESIUM CHLORIDE 64 MG TABCR (SLO MAG) PO SCH ×2 (08:46→21:44)
[2020-02-24] MEDS: levETIRAcetam 250MG TABLET (KEPPRA) PO SCH ×2 (08:46→21:45)
[2020-02-24] MEDS: FAMOTIDINE 20 MG TAB PO SCH (08:46)
[2020-02-24] MEDS: LACTOBACILLUS ACIDOPHILUS CAP (BACID) PO SCH ×4 (08:46→21:46)
[2020-02-24] MEDS: TAMSULOSIN 0.4 MG CAP PO SCH (08:46)
[2020-02-24] MEDS: DOCUSATE SODIUM 100 MG CAP PO SCH ×2 (08:46→21:45)
[2020-02-24] MEDS: ALPRAZolam 0.5 MG TAB PO PRN (08:50)
[2020-02-24] MEDS: risperiDONE 1 MG TAB PO SCH ×2 (08:51→21:45)
[2020-02-24] MEDS: bisoproloL fumarate 10 MG TAB PO SCH (08:53)
--- NOTE | 2020-02-24 10:14 | IPNPDOC ---
Subjective Date Seen The patient was seen on 02/24/20. Subjective Chief Complaint/HPI Patient alert, oriented 2, in no apparent distress and no agitation comfortable wants to go home General: Denies: ROS Unobtainable, Chills, Night Sweats, Fatigue, Malaise, Normal Appetite, Other Symptoms Constitutional: Denies: Chills, Fever, Malaise, Night Sweats, Weakness, Fatigue, Weight Loss, Lethargy, Other Skin: Denies: Rash, Lesions, Jaundice, Bruising, Itching, Dry, Breakdown, Nail Changes, Other Pulmonary: Denies: Dyspnea, Cough, Pleuritic Chest Pain, Other Symptoms Cardiovascular: Denies: Chest Pain, Palpitations, Orthopnea, Paroxysmal Noc. Dyspnea, Edema, Lt Headedness, Other Symptoms Gastrointestinal: Denies: Nausea, Vomiting, Abdominal Pain, Diarrhea, Constipation, Melena, Hematochezia, Other Symptoms Endocrine: Denies: Polydipsia, Polyphagia, Polyuria, Heat Intolerance, Cold Intolerance, Other Endocrine Sx Musculoskeletal: Denies: Neck Pain, Back Pain, Shoulder Pain, Arm Pain, Hand Pain, Leg Pain, Foot Pain, Joint Pain, Muscle Pain, Spasms, Other Symptoms Neurological: Denies: Weakness, Numbness, Incoordination, Change in speech, Confusion, Seizures, Other Symptoms Objective Physical Examination General Exam: Positive: Alert, Cooperative, Other (, oriented 2) Eye Exam: Positive: PERRLA, Conjunctiva & lids normal Chest Exam: Positive: Clear to auscultation, Normal air movement Heart Exam: Positive: Rate Normal, Normal S1, Normal S2 Abdomen Exam: Positive: Normal bowel sounds, Soft Extremity Exam: Positive: Normal pulses Skin Exam: Positive: Nl turgor and temperature, Other skin issue (, flaky eczema noted on the face) Neuro Exam: Positive: Strength at 5/5 X4 ext, Sensation Intact Assessment /Plan Problems (1) Chronic ITP (idiopathic thrombocytopenia) Onset Date: ~ 2017 Status: Chronic Response to Treatment: Worse Problem Text: Recently received IVIG by Dr. Reddy for low platelets He was placed on the oral SYK tyrosine kinase inhibitor Tavalisse, and tolerated this well. However, he had obtained this medication through a senior financial reporting accountant program, which in November 2019. Treatment was therefore changed to weekly romiplostim. Patient, platelet count is still 23,000. Checked with EDTA free tube Discussed with Dr. Cordova this morning who is commissioned sales associate for oncology group She later called me back after speaking with Dr. Reddy and recommended to continue IVIG till the platelet level are normal I will ordered IVIG 20 g IV 1 dose today and recheck platelets in the EDTA free tube after transfusion and in a.m. Also patient's Crissy was called at her phone #[phone], and she was informed that patient is medically stable to be discharged pending his platelet count. Once it improves. Patient can be discharged home. All arrangements have been made. 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 Zimmer (10) HTN (hypertension) Status: Chronic Problem Text: stable on HD biso 10 (11) CAD S/P percutaneous coronary angioplasty Status: Chronic Response to Treatment: Stable Problem Text: no active symptoms on HD biso/clopid (12) Paroxysmal atrial fibrillation Status: Chronic Problem Text: biso for RC clopid as AP-held until plt >50 (13) DM2 (diabetes mellitus, type 2) Status: Chronic Response to Treatment: Stable Problem Text: Fingerstick blood sugar every before meals and at bedtime with coverage Continue present meds Plan/VTE VTE Prophylaxis Ordered?: Yes VTE Exclusion Mechanical Proph: Other (behavioral) VTE Exclusion Pharmacological: Thrombocytopenia Plan Anticipated Discharge: Home (on 02/12/20) VS, I&O, 24H, Fishbone Vital Signs/I&O Vital Signs Date Time Temp Pulse Resp B/P (MAP) Pulse Ox O2 Delivery O2 Flow Rate FiO2 02/24/20 08:53 66 134/58 02/24/20 06:00 98.2 19 100 Room Air I&O- Last 24 Hours up to 6 AM 02/24/20 06:00 Intake Total 300 ml Output Total 1150 ml Balance -850 ml Laboratory Data 24H LABS Laboratory Tests 2 02/23/20 11:44: Bedside Glucose (Misc Panel) 177H 02/23/20 16:26: Bedside Glucose (Misc Panel) 142H 02/23/20 18:39: Platelet Count, EDTA Free 29*L 02/23/20 20:34: Bedside Glucose (Misc Panel) 191H 02/24/20 05:14: Bedside Glucose (Misc Panel) 133H 02/24/20 05:15: Immature Granulocyte % (Auto) 0.2, Neutrophils (%) (Auto) 51.9, Lymphocytes (%) (Auto) 34.2, Monocytes (%) (Auto) 10.5H, Eosinophils (%) (Auto) 2.3, Basophils (%) (Auto) 0.9, Neutrophils # (Auto) 3.0, Lymphocytes # (Auto) 2.0, Monocytes # (Auto) 0.6, Eosinophils # (Auto) 0.1, Basophils # (Auto) 0.1, Nucleated Red Blood Cells % (auto) 0.0, Platelet Count, EDTA Free 23*L, Immature Platelet Fraction 18.8H CBC/BMP Laboratory Tests 02/24/20 05:15 Microbiology Microbiology 02/18/20 Coronavirus COVID-19 PCR (JORGE) - Final, Complete 02/18/20 Respiratory Panel (PCR) - Final, Complete MYAH HAMMOND MD Feb 24, 2020 10:14
[2020-02-24] MEDS ORDERED: IMMUNE GLOBULIN 10% 20 GM in IV 1 EA IV ONE (11:00)
[2020-02-24] MEDS: ACETAMINOPHEN TAB 650MG DOSE (2X325MG) PO PRN (16:57)
[2020-02-24] MEDS: LEVEMIR (INSULIN DETEMIR) 1 UNITS/0.01ML SC SCH (21:44)
[2020-02-24] MEDS: FINASTERIDE 5 MG TAB PO SCH (21:45)
[2020-02-24] MEDS: POTASSIUM CHLORIDE 10 MEQ SR TABLET PO SCH (21:46)
[2020-02-24] MEDS: PANTOPRAZOLE 40MG TAB (PROTONIX) PO SCH (21:46)
[2020-02-24] MEDS: PRAVASTATIN 20 MG TAB PO SCH (21:46)
[2020-02-25] MEDS: ALPRAZolam 0.5 MG TAB PO PRN ×2 (02:13→09:56)
[2020-02-25 06:00] VITALS: BP 137/73
[2020-02-25 06:18] LABS: PLTBLUE- EDTA FREE CALC 22 K/mm3 (172-450)
[2020-02-25 06:20] LABS: PLTBLUE- EDTA FREE MACHINE 20 10^3/uL (172-450)
[2020-02-25] MEDS: HumaLOG INSULIN (NovoLOG) PER UNIT SC SCH ×4 (09:55→21:00)
[2020-02-25] MEDS: DOCUSATE SODIUM 100 MG CAP PO SCH ×2 (09:56→21:23)
[2020-02-25] MEDS: levETIRAcetam 250MG TABLET (KEPPRA) PO SCH ×2 (09:56→21:24)
[2020-02-25] MEDS: LACTOBACILLUS ACIDOPHILUS CAP (BACID) PO SCH ×4 (09:56→21:23)
[2020-02-25] MEDS: MAGNESIUM CHLORIDE 64 MG TABCR (SLO MAG) PO SCH ×2 (09:56→21:23)
[2020-02-25] MEDS: risperiDONE 1 MG TAB PO SCH ×2 (09:56→21:23)
[2020-02-25] MEDS: TAMSULOSIN 0.4 MG CAP PO SCH (09:56)
[2020-02-25] MEDS: FAMOTIDINE 20 MG TAB PO SCH (09:56)
[2020-02-25] MEDS: bisoproloL fumarate 10 MG TAB PO SCH (10:00)
[2020-02-25 14:00] VITALS: BP 145/71
--- NOTE | 2020-02-25 18:46 | IPNPDOC ---
Date Seen The patient was seen on 02/25/20. Progress Note SUBJECTIVE: Patient had no complaints today. Participating intermittently with PT/OT. As per heme, they would like PLTs to > or at 75K before discharge. They were to see today, will f/u their recommendations going forward. Patient denies chest pain, shortness of breath, n/v/d. OBJECTIVE: VITAL SIGNS: Please see below PHYSICAL EXAMINATION: CONSTITUTIONAL: No acute distress, resting comfortably, communicating well , AAOx2 EYES: PERRLA, EOM intact HENT, MOUTH: Normocephalic, atraumatic, moist mucous membranes NECK: SUPPLE, no JVD, no lymphadenopathy, no carotid bruit CV: Regular rate and rhythm, S1S2 normal, no murmurs/rubs/gallops RESPIRATORY: Clear to auscultation bilaterally, no rales/rhonchi/wheezes GI: BS positive in 4 quadrants, soft, nontender, nondistended, no rebound or guarding, no organomegaly : Solis catheter in place MUSCULOSKELETAL: Normal ROM. No cyanosis, clubbing, swelling, joint deformity, extremity edema INTEGUMENTARY: Intact, no rashes. Left and right le x 4 cm grade 2 skin tear with foam dressing NEUROLOGIC: RUE weakness-chronic and due to shoulder issues. Strength with grey iron molder 5/5 bilateral upper ext. LUE, RLE, LLE 4/5 strength- baseline. Cranial Nerves II-XII are intact, no focal deficits CURRENT MEDICATIONS: Please see below LABORATORY DATA: Please see below IMAGING: None ASSESSMENT: Patient is a 79 y/o male treated for urinary retention, ITP, physical deconditioning. PLAN: 1. Chronic ITP (idiopathic thrombocytopenia). PLTs 22K, 02/25/20 was 23 K. To f/u with heme/onc, s/p IV IG on 02/24/20. Once PLTs improves, patient can be discharged home. No signs of acute bleeding. 2. Benign prostatic hyperplasia with urinary retention, chronic. S/p solis catheter placement secondary to urinary retention. Further workup with urology as an outpatient, maintain Solis catheter in as per urology recommendations 3. Physical deconditioning, chronic. NH vs. home return. To discuss with CM and team. 4. Vascular dementia, chronic. Patient is currently not aggressive. Continue present meds 5. Seizure disorder,chronic and stable. 6. Primary adenocarcinoma of ascending colon and hepatic flexure. Onset Date: ~ 06/2018. Follows with oncology. 7. HTN (hypertension),chronic. Stable on current meds. 8. CAD S/P percutaneous coronary angioplasty. Stable. No active symptoms on HD biso/clopid 9. Paroxysmal atrial fibrillation, chronic. Bisoprolol for RC. 10. DM2 (diabetes mellitus, type 2), chronic. Fingerstick blood sugar every before meals and at bedtime with coverage. Continue present meds DISPOSITION: Currently patient is either awaiting placement or home, pending PLTs improving and heme suggestions. Attempted to update family, left message. W ill reach out to heme/onc to discuss plan further in AM. VS, I&O, 24H, Fishbone Vital Signs/I&O Vital Signs Date Time Temp Pulse Resp B/P (MAP) Pulse Ox O2 Delivery O2 Flow Rate FiO2 02/25/20 14:00 97.6 60 17 145/71 (95) 99 Room Air I&O- Last 24 Hours up to 6 AM 02/25/20 06:00 Intake Total 1120 ml Output Total 900 ml Balance 220 ml Laboratory Data 24H LABS Laboratory Tests 2 02/24/20 20:14: Bedside Glucose (Misc Panel) 140H 02/25/20 05:28: Bedside Glucose (Misc Panel) 125H, Platelet Count, EDTA Free 22*L 02/25/20 11:44: Bedside Glucose (Misc Panel) 125H 02/25/20 16:38: Bedside Glucose (Misc Panel) 106 Microbiology Microbiology 02/18/20 Coronavirus COVID-19 PCR (JORGE) - Final, Complete 02/18/20 Respiratory Panel (PCR) - Final, Complete Current Medications Current Medications Medications (Trade) Dose Ordered Sig/[place] Route PRN Reason Start Time Stop Time Status Last Admin Dose Admin Acetaminophen (Tylenol Tab) 650 mg Q6HP PRN PO PAIN / FEVER 02/07/20 21:15 02/24/20 16:57 Acetaminophen/ Hydrocodone Bitart ([place], Anexsia 5/325) 2 tab Q6H PRN PO PAIN 02/04/20 16:30 02/20/20 04:45 Alprazolam (Xanax) 0.25 mg BIDP PRN PO ANXIETY 02/13/20 17:00 02/25/20 09:56 Alprazolam (Xanax) 0.5 mg BIDP PRN PO ANXIETY 02/04/20 15:30 02/13/20 16:47 DC 02/13/20 00:58 Bisoprolol Fumarate (Zebeta) 10 mg DAILY PO 02/04/20 09:00 02/25/20 10:00 Ceftaroline Fosamil 400 mg/ Dextrose 50 ml @ 50 mls/hr Q12H IV 02/04/20 15:30 02/04/20 16:13 DC Ceftaroline Fosamil 600 mg/ Dextrose 50 ml @ 50 mls/hr Q12H IV 02/04/20 17:00 02/11/20 12:00 DC 02/11/20 04:14 Clopidogrel Bisulfate (PLAVix) 75 mg DAILY PO 02/04/20 09:00 02/04/20 16:27 DC Dextrose (Dextrose 50%) 25 ml ASDIRECTED PRN IV SEE LABEL COMMENTS 02/04/20 15:30 Docusate Sodium (Colace) 100 mg BID PO 02/17/20 09:00 02/25/20 09:56 Famotidine (Pepcid) 20 mg DAILY PO 02/05/20 09:00 02/25/20 09:56 Finasteride (Proscar) 5 mg QHS PO 02/04/20 21:00 02/24/20 21:45 Fluconazole (Diflucan Tablet) 100 mg DAILY PO 02/04/20 09:00 02/06/20 13:54 DC 02/05/20 10:10 Fluconazole 200 mg/IV Miscellaneous Supplies 100 ml @ 100 mls/hr Q24H IV 02/06/20 16:00 02/10/20 23:50 DC 02/10/20 15:46 Glucagon (Glucagon) 1 mg ASDIRECTED PRN SC SEE LABEL COMMENTS 02/04/20 15:30 Glucose (Glucose) 16 GM ASDIRECTED PRN PO SEE LABEL COMMENTS 02/04/20 15:30 Haloperidol (Haldol) 2 mg Q4HP PRN IM AGITATION 02/06/20 14:15 02/20/20 10:42 Home Med (Med Rec Complete!) ASDIRECTED XX 02/04/20 15:45 02/04/20 16:00 DC Immune Globulin 20 gm/IV Miscellaneous Supplies 200 ml @ 0 mls/hr ASDIRECTED IV 02/20/20 11:45 02/20/20 11:46 DC Immune Globulin / IV Miscellaneous Supplies 0 ml @ 0 mls/hr ASDIRECTED IV 02/04/20 18:00 UNV Immune Globulin / IV Miscellaneous Supplies 0 ml @ 0 mls/hr ASDIRECTED IV 02/05/20 11:45 UNV Insulin Detemir (Levemir Insulin) 5 units QHS SC 02/07/20 21:00 02/24/20 21:44 Insulin Detemir (Levemir Insulin) 12 units QHS SC 02/05/20 21:00 02/07/20 14:10 DC Insulin Detemir (Levemir Insulin) 22 units QHS SC 02/04/20 21:00 02/05/20 11:36 DC 02/04/20 21:15 Insulin Human Lispro (HumaLOG INSULIN) SEE PROTOCOL TABLE AC SC 02/04/20 17:30 02/25/20 13:24 Insulin Human Lispro (HumaLOG INSULIN) SEE PROTOCOL TABLE QHS SC 02/04/20 21:00 Lactobacillus Acidophilus (Bacid) 1 ea WMHS PO 02/04/20 18:00 02/25/20 13:25 Levetiracetam (Keppra) 250 mg QAM PO 02/05/20 09:00 02/25/20 09:56 Levetiracetam (Keppra) 500 mg BID PO 02/04/20 21:00 02/04/20 16:22 DC Levetiracetam (Keppra) 500 mg QHS PO 02/04/20 21:00 02/24/20 21:45 Lorazepam (Ativan) 2 mg Q6HP PRN IM AGITATION 02/20/20 14:00 02/20/20 14:38 DC 02/20/20 14:04 Lorazepam (Ativan) 2 mg Q6HP PRN IV AGITATION 02/20/20 20:00 Magnesium Chloride (Slow-Mag) 64 mg BID PO 02/04/20 21:00 02/25/20 09:56 Miscellaneous (Unresolved Clarification Entry) SEE LABEL COMMENTS DAILY XX 02/08/20 09:00 02/09/20 08:49 DC Miscellaneous (Unresolved Clarification Entry) SEE LABEL COMMENTS DAILY XX 02/09/20 09:00 02/09/20 11:15 DC Pantoprazole Sodium (Protonix) 40 mg QHS PO 02/04/20 21:00 02/24/20 21:46 Polyethylene Glycol (Miralax) 1 pkt DAILYPRN PRN PO CONSTIPATION 02/17/20 10:15 02/17/20 12:00 Potassium Chloride/Sodium Chloride 1,000 ml @ 75 mls/hr [id number] IV 02/06/20 15:00 02/11/20 19:15 DC 02/11/20 04:15 Potassium Chloride (Micro-K Extencaps) 10 meq QHS PO 02/04/20 21:00 02/24/20 21:46 Pravastatin Sodium (Pravachol) 20 mg QHS PO 02/04/20 21:00 02/24/20 21:46 Risperidone (RisperDAL) 1 mg BID PO 02/04/20 21:00 02/25/20 09:56 Risperidone (RisperDAL) 1 mg QHS PO 02/04/20 21:00 02/04/20 16:22 DC Sodium Chloride 1,000 ml @ 75 mls/hr [id number] IV 02/04/20 17:00 02/05/20 11:36 DC 02/05/20 09:57 Tamsulosin HCl (Flomax) 0.4 mg DAILY PO 02/05/20 09:00 02/25/20 09:56 Tamsulosin HCl (Flomax) 0.8 mg DAILY PO 02/05/20 09:00 02/04/20 16:22 DC Allergies Coded Allergies: procaine (Verified Allergy, Severe, difficulty breathing, 02/04/20) Penicillins (Verified Allergy, Intermediate, swelling, 02/04/20) Lorna Agrawal MD Feb 25, 2020 18:46
[2020-02-25] MEDS: PRAVASTATIN 20 MG TAB PO SCH (21:23)
[2020-02-25] MEDS: FINASTERIDE 5 MG TAB PO SCH (21:23)
[2020-02-25] MEDS: POTASSIUM CHLORIDE 10 MEQ SR TABLET PO SCH (21:24)
[2020-02-25] MEDS: PANTOPRAZOLE 40MG TAB (PROTONIX) PO SCH (21:24)
[2020-02-25] MEDS: LEVEMIR (INSULIN DETEMIR) 1 UNITS/0.01ML SC SCH (21:25)
[2020-02-25 22:00] VITALS: BP 136/74
[2020-02-26 06:00] VITALS: BP 145/67
[2020-02-26 06:04] LABS: BASO % 0.7 % (0.0-1.0); EOS # 0.1 10^3/uL (0.0-0.5); EOS % 1.9 % (0.0-3.0); HEMATOCRIT 33.6 % (42.0-52.0); HEMOGLOBIN 10.9 g/dl (13.5-17.5); LYMPH # 1.9 10^3/uL (1.5-5.0); MEAN CORPUSCULAR HEMOGLOBIN 27.5 pg (27.0-33.0); MEAN CORPUSCULAR HGB CONC 32.4 g/dl (32.0-36.5); MEAN CORPUSCULAR VOLUME 84.8 fl (80.0-96.0); MONO # 0.7 10^3/uL (0.0-0.8); MONO % 11.4 % (0.0-5.0); NEUTROPHILS % 52.7 % (36.0-66.0); RED BLOOD COUNT 3.96 10^6/uL (4.30-6.10); WHITE BLOOD COUNT 5.7 10^3/uL (4.0-10.0)
[2020-02-26 06:05] LABS: PLATELET COUNT, AUTOMATED 14 10^3/uL (150-450)
[2020-02-26 06:22] LABS: ALBUMIN 2.8 GM/DL (3.2-5.2); ALT/SGPT 23 U/L (12-78); BILIRUBIN,TOTAL 0.3 MG/DL (0.2-1.0); BLOOD UREA NITROGEN 17 MG/DL (7-18); CARBON DIOXIDE LEVEL 27 MEQ/L (21-32); CHLORIDE LEVEL 109 MEQ/L (98-107); CREATININE FOR GFR 1.04 MG/DL (0.70-1.30); GLOMERULAR FILTRATION RATE > 60.0 (>42); GLUCOSE, FASTING 135 MG/DL (70-100); POTASSIUM SERUM 3.5 MEQ/L (3.5-5.1); SODIUM LEVEL 140 MEQ/L (136-145); TOTAL PROTEIN 6.9 GM/DL (6.4-8.2)
[2020-02-26] MEDS: ALPRAZolam 0.5 MG TAB PO PRN ×2 (08:45→21:50)
[2020-02-26] MEDS: levETIRAcetam 250MG TABLET (KEPPRA) PO SCH ×3 (08:45→21:50)
[2020-02-26] MEDS: MAGNESIUM CHLORIDE 64 MG TABCR (SLO MAG) PO SCH ×3 (08:45→21:52)
[2020-02-26] MEDS: FAMOTIDINE 20 MG TAB PO SCH (08:45)
[2020-02-26] MEDS: TAMSULOSIN 0.4 MG CAP PO SCH (08:45)
[2020-02-26] MEDS: LACTOBACILLUS ACIDOPHILUS CAP (BACID) PO SCH ×5 (08:45→21:51)
[2020-02-26] MEDS: bisoproloL fumarate 10 MG TAB PO SCH (08:47)
[2020-02-26] MEDS: risperiDONE 1 MG TAB PO SCH ×3 (08:48→21:50)
[2020-02-26] MEDS: DOCUSATE SODIUM 100 MG CAP PO SCH ×3 (08:48→21:51)
[2020-02-26] MEDS: HumaLOG INSULIN (NovoLOG) PER UNIT SC SCH ×4 (08:49→21:00)
[2020-02-26] MEDS ORDERED: ROMIPLOSTIM 250MCG VIAL (NPLATE) (J2796 PER 10MCG) (FOR ONCOLOGY) SC ONE (13:00)
[2020-02-26 14:00] VITALS: BP 153/63
--- NOTE | 2020-02-26 14:15 | IPNPDOC ---
Date Seen The patient was seen on 02/26/20. Progress Note SUBJECTIVE: Patient was awake, communicative and in a great mood this AM. Ate >75% of breakfast. As per Dr. Andre, hematology, patient was given 40 mg PO decadron today. Later was decided to romiplastin SC today and hopefully discharge 02/27/20. PLTS will not be >75 prior to discharge if that was the case; however, Dr. Andre explained it could take 10-14 days to see a response. No signs of acute bleeding. Patient denies chest pain, shortness of breath, n/v/d. OBJECTIVE: VITAL SIGNS: Please see below PHYSICAL EXAMINATION: CONSTITUTIONAL: No acute distress, resting comfortably, communicating well , AAOx2 EYES: PERRLA, EOM intact HENT, MOUTH: Normocephalic, atraumatic, moist mucous membranes NECK: SUPPLE, no JVD, no lymphadenopathy, no carotid bruit CV: Regular rate and rhythm, S1S2 normal, no murmurs/rubs/gallops RESPIRATORY: Clear to auscultation bilaterally, no rales/rhonchi/wheezes GI: BS positive in 4 quadrants, soft, nontender, nondistended, no rebound or guarding, no organomegaly : Solis catheter in place MUSCULOSKELETAL: Normal ROM. No cyanosis, clubbing, swelling, joint deformity, extremity edema INTEGUMENTARY: Intact, no rashes. Left and right le x 4 cm grade 2 skin tear with foam dressing NEUROLOGIC: RUE weakness-chronic and due to shoulder issues. Strength with community coordinator for high school 5/5 bilateral upper ext. LUE, RLE, LLE 4/5 strength- baseline. Cranial Nerves II-XII are intact, no focal deficits CURRENT MEDICATIONS: Please see below LABORATORY DATA: Please see below IMAGING: None ASSESSMENT: Patient is a 79 y/o male treated for Chronic ITP, urinary retention, physical deconditioning. PLAN: 1. Chronic ITP (idiopathic thrombocytopenia). PLTs worse today at 14, no signs of bleeding. S/p IVIG 02/24/2020, given one dose of decadron 40 mg and will be giv en romiplastin 125 mcg SC today as per heme today. Hopefully see increase in PLTS by 02/27/2020 and it will take some time for romiplastin to show improvements. Hematology feels the patient's can be safely discharged after receiving romiplastin with close management and repeat injections continue week ly as before. F/u CBC in the AM, watch for petechial rashes. Goal to transfuse PLTs is 5-10 or with bleeding. 2. Benign prostatic hyperplasia with urinary retention, chronic. S/p solis catheter placement secondary to urinary retention. Patient will need to keep indwelling solis catheter at discharge. Will need o/p urology f/u and cystoscopy. 3. Physical deconditioning, chronic. Ange hicks arrived at home, patient has home health arranged. Plan is home when medically stable with PT/OT o/p. 4. Vascular dementia, chronic. 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 . Continue present meds 5. Seizure disorder,chronic and stable. 6. Primary adenocarcinoma of ascending colon and hepatic flexure. Onset Date: ~ 06/2018. Follows with oncology. 7. HTN (hypertension),chronic. Stable on current meds. 8. CAD S/P percutaneous coronary angioplasty. Stable. No active symptoms on HD biso/clopid 9. Paroxysmal atrial fibrillation, chronic. Bisoprolol for RC. 10. DM2 (diabetes mellitus, type 2), chronic. Fingerstick blood sugar every before meals and at bedtime with coverage. Continue present meds DISPOSITION: Depending on what this patient's platelets look like on 02/27/2020 will determine if the patient can return home with outpatient physical therapy. Our goal is to send him home before the weekend and make follow-up appointments with hematology/oncology, PCP and urology. His was updated on his treatments today. She agrees with the current plan. VS, I&O, 24H, Fishbone Vital Signs/I&O Vital Signs Date Time Temp Pulse Resp B/P (MAP) Pulse Ox O2 Delivery O2 Flow Rate FiO2 02/26/20 08:47 71 154/66 02/26/20 06:00 97.6 18 99 Room Air I&O- Last 24 Hours up to 6 AM 02/26/20 06:00 Intake Total 700 ml Output Total 975 ml Balance -275 ml Laboratory Data 24H LABS Laboratory Tests 2 02/25/20 16:38: Bedside Glucose (Misc Panel) 106 02/25/20 21:14: Bedside Glucose (Misc Panel) 160H 02/26/20 05:10: Immature Granulocyte % (Auto) 0.3, Neutrophils (%) (Auto) 52.7, Lymphocytes (%) (Auto) 33.0, Monocytes (%) (Auto) 11.4H, Eosinophils (%) (Auto) 1.9, Basophils (%) (Auto) 0.7, Neutrophils # (Auto) 3.0, Lymphocytes # (Auto) 1.9, Monocytes # (Auto) 0.7, Eosinophils # (Auto) 0.1, Basophils # (Auto) 0.0, Nucleated Red Blood Cells % (auto) 0.0, Immature Platelet Fraction 16.6H, Anion Gap 4L, Gl omerular Filtration Rate > 60.0, Calcium Level 9.0, Total Bilirubin 0.3, Aspartate Amino Transf (AST/SGOT) 21, Alanine Aminotransferase (ALT/SGPT) 23, Alkaline Phosphatase 113, Total Protein 6.9, Albumin 2.8L, Albumin/Globulin Ratio 0.68L 02/26/20 11:28: Bedside Glucose (Misc Panel) 176H CBC/BMP Laboratory Tests 02/26/20 05:10 Microbiology Microbiology 02/18/20 Coronavirus COVID-19 PCR ([facility]ORGE) - Final, Complete 02/18/20 Respiratory Panel (PCR) - Final, Complete Current Medications Current Medications Medications (Trade) Dose Ordered Sig/[place] Route PRN Reason Start Time Stop Time Status Last Admin Dose Admin Acetaminophen (Tylenol Tab) 650 mg Q6HP PRN PO PAIN / FEVER 02/07/20 21:15 02/24/20 16:57 Acetaminophen/ Hydrocodone Bitart ([place], Anexsia 5/325) 2 tab Q6H PRN PO PAIN 02/04/20 16:30 02/20/20 04:45 Alprazolam (Xanax) 0.25 mg BIDP PRN PO ANXIETY 02/13/20 17:00 02/26/20 08:45 Alprazolam (Xanax) 0.5 mg BIDP PRN PO ANXIETY 02/04/20 15:30 02/13/20 16:47 DC 02/13/20 00:58 Bisoprolol Fumarate (Zebeta) 10 mg DAILY PO 02/04/20 09:00 02/26/20 08:47 Ceftaroline Fosamil 400 mg/ Dextrose 50 ml @ 50 mls/hr Q12H IV 02/04/20 15:30 02/04/20 16:13 DC Ceftaroline Fosamil 600 mg/ Dextrose 50 ml @ 50 mls/hr Q12H IV 02/04/20 17:00 02/11/20 12:00 DC 02/11/20 04:14 Clopidogrel Bisulfate (PLAVix) 75 mg DAILY PO 02/04/20 09:00 02/04/20 16:27 DC Dexamethasone (Decadron) 40 mg DAILY PO 02/26/20 09:00 03/01/20 12:00 02/26/20 09:13 Dextrose (Dextrose 50%) 25 ml ASDIRECTED PRN IV SEE LABEL COMMENTS 02/04/20 15:30 Docusate Sodium (Colace) 100 mg BID PO 02/17/20 09:00 02/26/20 08:48 Famotidine (Pepcid) 20 mg DAILY PO 02/05/20 09:00 02/26/20 08:45 Finasteride (Proscar) 5 mg QHS PO 02/04/20 21:00 02/25/20 21:23 Fluconazole (Diflucan Tablet) 100 mg DAILY PO 02/04/20 09:00 02/06/20 13:54 DC 02/05/20 10:10 Fluconazole 200 mg/IV Miscellaneous Supplies 100 ml @ 100 mls/hr Q24H IV 02/06/20 16:00 02/10/20 23:50 DC 02/10/20 15:46 Glucagon (Glucagon) 1 mg ASDIRECTED PRN SC SEE LABEL COMMENTS 02/04/20 15:30 Glucose (Glucose) 16 GM ASDIRECTED PRN PO SEE LABEL COMMENTS 02/04/20 15:30 Haloperidol (Haldol) 2 mg Q4HP PRN IM AGITATION 02/06/20 14:15 02/20/20 10:42 Home Med (Med Rec Complete!) ASDIRECTED XX 02/04/20 15:45 02/04/20 16:00 DC Immune Globulin 20 gm/IV Miscellaneous Supplies 200 ml @ 0 mls/hr ASDIRECTED IV 02/20/20 11:45 02/20/20 11:46 DC Immune Globulin / IV Miscellaneous Supplies 0 ml @ 0 mls/hr ASDIRECTED IV 02/04/20 18:00 UNV Immune Globulin / IV Miscellaneous Supplies 0 ml @ 0 mls/hr ASDIRECTED IV 02/05/20 11:45 UNV Insulin Detemir (Levemir Insulin) 5 units QHS SC 02/07/20 21:00 02/25/20 21:25 Insulin Detemir (Levemir Insulin) 12 units QHS SC 02/05/20 21:00 02/07/20 14:10 DC Insulin Detemir (Levemir Insulin) 22 units QHS SC 02/04/20 21:00 02/05/20 11:36 DC 02/04/20 21:15 Insulin Human Lispro (HumaLOG INSULIN) SEE PROTOCOL TABLE AC SC 02/04/20 17:30 02/26/20 12:30 Insulin Human Lispro (HumaLOG INSULIN) SEE PROTOCOL TABLE QHS SC 02/04/20 21:00 Lactobacillus Acidophilus (Bacid) 1 ea WMHS PO 02/04/20 18:00 02/26/20 12:30 Levetiracetam (Keppra) 250 mg QAM PO 02/05/20 09:00 02/26/20 08:45 Levetiracetam (Keppra) 500 mg BID PO 02/04/20 21:00 02/04/20 16:22 DC Levetiracetam (Keppra) 500 mg QHS PO 02/04/20 21:00 02/25/20 21:24 Lorazepam (Ativan) 2 mg Q6HP PRN IM AGITATION 02/20/20 14:00 02/20/20 14:38 DC 02/20/20 14:04 Lorazepam (Ativan) 2 mg Q6HP PRN IV AGITATION 02/20/20 20:00 Magnesium Chloride (Slow-Mag) 64 mg BID PO 02/04/20 21:00 02/26/20 08:45 Miscellaneous (Unresolved Clarification Entry) SEE LABEL COMMENTS DAILY XX 02/08/20 09:00 02/09/20 08:49 DC Miscellaneous (Unresolved Clarification Entry) SEE LABEL COMMENTS DAILY XX 02/09/20 09:00 02/09/20 11:15 DC Pantoprazole Sodium (Protonix) 40 mg QHS PO 02/04/20 21:00 02/25/20 21:24 Polyethylene Glycol (Miralax) 1 pkt DAILYPRN PRN PO CONSTIPATION 02/17/20 10:15 02/17/20 12:00 Potassium Chloride/Sodium Chloride 1,000 ml @ 75 mls/hr [id number] IV 02/06/20 15:00 02/11/20 19:15 DC 02/11/20 04:15 Potassium Chloride (Micro-K Extencaps) 10 meq QHS PO 02/04/20 21:00 02/25/20 21:24 Pravastatin Sodium (Pravachol) 20 mg QHS PO 02/04/20 21:00 02/25/20 21:23 Risperidone (RisperDAL) 1 mg BID PO 02/04/20 21:00 02/26/20 08:48 Risperidone (RisperDAL) 1 mg QHS PO 02/04/20 21:00 02/04/20 16:22 DC Sodium Chloride 1,000 ml @ 75 mls/hr [id number] IV 02/04/20 17:00 02/05/20 11:36 DC 02/05/20 09:57 Tamsulosin HCl (Flomax) 0.4 mg DAILY PO 02/05/20 09:00 02/26/20 08:45 Tamsulosin HCl (Flomax) 0.8 mg DAILY PO 02/05/20 09:00 02/04/20 16:22 DC Allergies Coded Allergies: procaine (Verified Allergy, Severe, difficulty breathing, 02/04/20) Penicillins (Verified Allergy, Intermediate, swelling, 02/04/20) Lorna Agrawal MD Feb 26, 2020 14:15
--- NOTE | 2020-02-26 16:12 | MEDONCTEEN ---
Date/Time of Encounter Date of Encounter: Feb 26, 2020 Time of Encounter: 11:00 Telephone Encounter Hematology Case discussed with Dr. Agrawal Reinstitution Nplate Dose will be 125 mg every week Patient tendency be scheduled next week in the cancer center with weekly blood work done Proceed with Decadron 40 mg today as discussed Suspect that platelet count will be high enough for potential discharge tomorrow SEAN CRAMER MD Feb 26, 2020 16:12
[2020-02-26] MEDS: FINASTERIDE 5 MG TAB PO SCH ×2 (21:00→21:50)
[2020-02-26] MEDS: PANTOPRAZOLE 40MG TAB (PROTONIX) PO SCH ×2 (21:00→21:50)
[2020-02-26] MEDS: POTASSIUM CHLORIDE 10 MEQ SR TABLET PO SCH ×2 (21:00→21:51)
[2020-02-26] MEDS: PRAVASTATIN 20 MG TAB PO SCH ×2 (21:00→21:50)
[2020-02-26] MEDS: LEVEMIR (INSULIN DETEMIR) 1 UNITS/0.01ML SC SCH (21:52)
[2020-02-26 22:00] VITALS: BP 137/69
[2020-02-27 06:00] VITALS: BP 130/70
[2020-02-27 06:08] LABS: HEMATOCRIT 36.1 % (42.0-52.0); HEMOGLOBIN 11.6 g/dl (13.5-17.5); LYMPH # 0.9 10^3/uL (1.5-5.0); MEAN CORPUSCULAR HEMOGLOBIN 26.9 pg (27.0-33.0); MEAN CORPUSCULAR HGB CONC 32.1 g/dl (32.0-36.5); MEAN CORPUSCULAR VOLUME 83.8 fl (80.0-96.0); MONO # 0.2 10^3/uL (0.0-0.8); MONO % 3.4 % (0.0-5.0); NEUTROPHILS # 3.8 10^3/uL (1.5-8.5); NEUTROPHILS % 77.2 % (36.0-66.0); RED BLOOD COUNT 4.31 10^6/uL (4.30-6.10); WHITE BLOOD COUNT 4.9 10^3/uL (4.0-10.0)
[2020-02-27 06:11] LABS: PLATELET COUNT, AUTOMATED 23 10^3/uL (150-450)
[2020-02-27 06:33] LABS: ALT/SGPT 26 U/L (12-78); BILIRUBIN,TOTAL 0.4 MG/DL (0.2-1.0); BLOOD UREA NITROGEN 23 MG/DL (7-18); CALCIUM LEVEL 9.3 MG/DL (8.8-10.2); CARBON DIOXIDE LEVEL 26 MEQ/L (21-32); CHLORIDE LEVEL 107 MEQ/L (98-107); CREATININE FOR GFR 0.99 MG/DL (0.70-1.30); GLOMERULAR FILTRATION RATE > 60.0 (>42); GLUCOSE, FASTING 169 MG/DL (70-100); SODIUM LEVEL 140 MEQ/L (136-145); TOTAL PROTEIN 7.7 GM/DL (6.4-8.2)
[2020-02-27] MEDS ORDERED: DOCU100C16 PO (07:50)
[2020-02-27] MEDS ORDERED: ALPR0.5T3 PO ×2 (07:50→07:54)
[2020-02-27] MEDS: ALPRAZolam 0.5 MG TAB PO PRN (07:55)
[2020-02-27] MEDS: TAMSULOSIN 0.4 MG CAP PO SCH (07:56)
[2020-02-27] MEDS: risperiDONE 1 MG TAB PO SCH (07:56)
[2020-02-27] MEDS: levETIRAcetam 250MG TABLET (KEPPRA) PO SCH (07:56)
[2020-02-27 07:57] VITALS: BP 130/70
[2020-02-27] MEDS: FAMOTIDINE 20 MG TAB PO SCH (07:57)
[2020-02-27] MEDS: bisoproloL fumarate 10 MG TAB PO SCH (07:57)
[2020-02-27] MEDS: HumaLOG INSULIN (NovoLOG) PER UNIT SC SCH (07:59)
[2020-02-27] MEDS: MAGNESIUM CHLORIDE 64 MG TABCR (SLO MAG) PO SCH (07:59)
[2020-02-27] MEDS: LACTOBACILLUS ACIDOPHILUS CAP (BACID) PO SCH (07:59)
[2020-02-27] MEDS: DOCUSATE SODIUM 100 MG CAP PO SCH (08:04)
--- NOTE | 2020-02-27 14:20 | DS.PDOC ---
Discharge Summary General Date of Admission Feb 04, 2020 at 15:21 Date of Discharge 02/27/20 Primary Care Physician: Blaine Byrd MD Attending Physician: Lorna Agrawal MD Specialist/Consultants Involve: REGINE REDDY MD Discharge Summary HISTORY OF PRESENT ILLNESS: This is a 79-year-old male with a history of idiopathic thrombocytopenic purpura (ITP), moderately differentiated adenocarcinoma of the colon, right hemicolectomy, who receives Romiplostim and followed by Dr. Reddy. The patient's platelet count was thought to be due to adverse effect from a drug Tavalisse. The patient's generalized weakness occurred about 2 days ago when he woke up unable to sit up in bed by himself, usually walks with a cane and walker. He denies any dysuria, but has had some urgency and frequency without fever or chills. He was treated for urinary tract infection (UTI) with antibiotic. According to the patient, this started with a "C," and he developed an allergic reaction. Urine culture grew out yeast-like organism, and he was given Diflucan. He denied any nausea, vomiting, abdominal pain. He has had two episodes of loose stools at home, as well as an initial skin abrasion of the left louise due to running into his walker when he walks and falls down. The patient has had increasing redness, tenderness and swelling of the left lower extremity for the past 2 days and pain when he walks, usually it comes in spurts, about 3 out of 10 when the pain is controlled and about 5 out of 10 when it is uncontrolled. The patient currently takes hydrocodone for pain, which alleviates the pain entirely. He continues to take all of his home medications, including Plavix, but he has had no unusual bleeding, bright red blood per rectum, melena, or black tarry stools. He has a history of cardiac stenting in the past and aortic valve repair by Dr. Oliva in 2007, along with carotid endarterectomy. HOSPITAL COURSE: During the patient's hospital course he was treated for lower extremity cellulitis, UTI, worsened chronic idiopathic thrombocytopenia. He was evaluated by PT/OT who worked with him extensively during this stay. He was found to be increasingly more weak than prior visits and would, at times, refuse PT. was t reated with antibiotics over the course of several weeks for cellulitis and UTI. For his worsened chronic idiopathic thrombocytopenia the patient was treated with steroids along with romiplastin. Hematology/oncology had been following this hospital stay. The patient had urinary retention which worsened likely due to his BPH. Urology was consult it and suggested to leave a chronic indwelling Solis catheter for now, will need a cystoscopy after discharge and follow-up with their office. Creatinine is within normal limits. The patient was discharged on 02/27/2020 with follow-ups with hematology/oncology, urology, PCP. He has been eating 75-100% of his meals and is eager to go home. His is his caregiver and recently they had a sera study delivered to their home. He receives home health care and she is his full-time health caregiver. At the time of discharge the patient had no complaints, he denied chest pain, nausea, vomiting, shortness of breath, fevers or chills. REVIEW OF SYSTEMS: Negative except for what is mentioned above. PAST MEDICAL HISTORY: 1. 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 2. Spinal stenosis. 3. KRAS positive colon cancer, status post right hemicolectomy. 4. Diabetes. 5. Benign prostatic hypertrophy (BPH). 6. Idiopathic thrombocytopenic purpura (ITP). 7. Gastrointestinal bleed. 8. Insomnia. 9. Anxiety. 10. Congestive heart failure (CHF) with preserved ejection fraction. 11. AICD with stent. 12. Hyperlipidemia. 13. Peripheral vascular disease. 14. Hypertension with hypertensive heart disease. 15. Urinary tract infection (UTI), as well as yeast in the urine culture. PAST SURGICAL HISTORY: 1. Bone marrow biopsy in 2017. 2. Right hemicolectomy. 3. Carotid endarterectomy 2007. 4. Catheterization with PTCA in 2003, stent placement in right coronary artery times two. 5. Aortic valve repair for aortic stenosis in 2007. 6. Appendectomy. 7. Carpal tunnel release bilaterally in 2001. 8. Left shoulder surgery in 2002. SOCIAL HISTORY: The patient lives at home. The patient smoked cigarettes, quit October 2019. The patient states that he smoked 1-1/2 packs per day for over 60 years. He uses a cane and walker at home. Lives at home with his spouse. No alcohol use. No recreational drug use. Retired. FAMILY HISTORY: Father from cancer and cardiac disease. Mother from cardiac disease. Five brothers and two sons and five daughter. Two brothers with cardiac issues. Another brother of lung cancer. Another with colon cancer. PHYSICAL EXAMINATION: CONSTITUTIONAL: No acute distress, resting comfortably, communicating well , AAOx2 EYES: PERRLA, EOM intact HENT, MOUTH: Normocephalic, atraumatic, moist mucous membranes NECK: SUPPLE, no JVD, no lymphadenopathy, no carotid bruit CV: Regular rate and rhythm, S1S2 normal, no murmurs/rubs/gallops RESPIRATORY: Clear to auscultation bilaterally, no rales/rhonchi/wheezes GI: BS positive in 4 quadrants, soft, nontender, nondistended, no rebound or guarding, no organomegaly : Solis catheter in place MUSCULOSKELETAL: Normal ROM. No cyanosis, clubbing, swelling, joint deformity, extremity edema INTEGUMENTARY: Intact, no rashes. Left and right le x 4 cm grade 2 skin tear with foam dressing NEUROLOGIC: RUE weakness-chronic and due to shoulder issues. 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 LUE, RLE, LLE 4/5 strength- baseline. Cranial Nerves II-XII are intact, no focal deficits CURRENT MEDICATIONS: Please see below LABORATORY DATA: Please see below IMAGING: Please see Imaging this stay ASSESSMENT: Patient is a 79 y/o male treated for Chronic ITP, urinary retention, physical deconditioning. PLAN: 1. Chronic ITP (idiopathic thrombocytopenia). PLTs improved to 23 s/p 40 decadron and rompilastin 02/26/20. No signs of bleeding. Hematology feels the patient's can be safely discharged with close f/u in their office to continue weekly romiplastin injections. F/u arranged. 2. Benign prostatic hyperplasia with urinary retention, chronic. S/p solis catheter placement secondary to urinary retention. Patient will need to keep indwelling solis catheter at discharge. Will need o/p urology f/u and cystoscopy. 3. Physical deconditioning, chronic. Ange hicks arrived at home, patient has home health arranged. 4. Vascular dementia, chronic. Continue present meds. 5. Seizure disorder,chronic. Stable. 6. Primary adenocarcinoma of ascending colon and hepatic flexure. Onset Date: ~ 06/2018. Follows with oncology. 7. HTN (hypertension),chronic. Stable on current meds. 8. CAD S/P percutaneous coronary angioplasty. Stable. No active symptoms on HD biso/clopid. Stopped plavix due to low PLTs. Can discuss with PCP when to resume. 9. Paroxysmal atrial fibrillation, chronic. Bisoprolol for RC. 10. DM2 (diabetes mellitus, type 2), chronic. Continue home meds. DISPOSITION: Discharge home in improved condition with f/u appointments as mentioned above. His was updated in detail. TIME SPENT ON DISCHARGE: Greater 30 minutes. Vital Signs/I&Os Vital Signs Date Time Temp Pulse Resp B/P (MAP) Pulse Ox O2 Delivery O2 Flow Rate FiO2 02/27/20 07:57 130/70 02/27/20 06:00 97.8 69 18 96 02/26/20 14:00 Room Air I&O- Last 24 Hours up to 6 AM 02/27/20 06:00 Intake Total 900 ml Output Total 1000 ml Balance -100 ml Laboratory Data Labs 24H Laboratory Tests 2 02/26/20 16:33: Bedside Glucose (Misc Panel) 158H 02/26/20 20:36: Bedside Glucose (Misc Panel) 214H 02/27/20 05:19: Immature Granulocyte % (Auto) 0.4, Neutrophils (%) (Auto) 77.2H, Lymphocytes (%) (Auto) 19.0L, Monocytes (%) (Auto) 3.4, Eosinophils (%) (Auto) 0.0, Basophils (%) (Auto) 0.0, Neutrophils # (Auto) 3.8, Lymphocytes # (Auto) 0.9L, Monocytes # (Auto) 0.2, Eosinophils # (Auto) 0.0, Basophils # (Auto) 0.0, Nucleated Red Blood Cells % (auto) 0.0, Immature Platelet Fraction 19.0H, Anion Gap 7L, Glomerular Filtration Rate > 60.0, Calcium Level 9.3, Total Bilirubin 0.4, Aspartate Amino Transf (AST/SGOT) 13, Alanine Aminotransferase (ALT/SGPT) 26, Alkaline Phosphatase 98, Total Protein 7.7, Albumin 3.0L, Albumin/Globulin Ratio 0.64L 02/27/20 11:44: Bedside Glucose (Misc Panel) 170H CBC/BMP Laboratory Tests 02/27/20 05:19 FSBS Laboratory Tests Test 02/26/20 16:33 02/26/20 20:36 02/27/20 11:44 Range/Units Bedside Glucose (Misc Panel) 158 214 170 83-110 MG/DL Microbiology Microbiology 02/18/20 Coronavirus COVID-19 PCR ([facility]) - Final, Complete 02/18/20 Respiratory Panel (PCR) - Final, Complete Discharge Medications Scheduled Bimatoprost (Lumigan) 0.01% 2.5ML Drops, 1 DROP OU QHS, (Reported) Bisoprolol Fumarate (Bisoprolol Fumarate) 10 Mg Tablet, 10 MG PO DAILY, (Reported) Clopidogrel Bisulfate (Plavix) 75 Mg Tablet, 75 MG PO DAILY, (Reported) Docusate Sodium (Docusate Sodium) 100 Mg Capsule, 100 MG PO BID Famotidine (Famotidine) 40 Mg Tablet, 40 MG PO DAILY, (Reported) Finasteride (Finasteride) 5 Mg Tablet, 5 MG PO DAILY, (Reported) Fluconazole (Fluconazole) 100 Mg Tablet, 100 MG PO DAILY, (Reported) STARTED 01/29/2020 FOR 14 DAYS Furosemide (Furosemide) 40 Mg Tablet, 40 MG PO DAILY, (Reported) Insulin Glargine,Hum.rec.anlog (Lantus Solostar) 100 Unit/1 Ml Insuln.pen, 24 UNITS SC DAILY, (Reported) Levetiracetam (Levetiracetam) 250 Mg Tablet, 250 MG PO QAM, (Reported) Levetiracetam (Levetiracetam) 250 Mg Tablet, 500 MG PO QHS, (Reported) Magnesium Chloride (Mag64) 64 Mg Tablet.dr, 64 MG PO BID, (Reported) Melatonin (Melatonin) 10 Mg Capsule, 10 MG PO QHS, (Reported) Pantoprazole Sodium (Pantoprazole Sodium) 40 Mg Tablet.dr, 40 MG PO QHS, (Reported) Potassium Chloride (K-Tab ER) 10 Meq Tablet.er, 10 MEQ PO QHS, (Reported) Pravastatin Sodium (Pravastatin Sodium) 20 Mg Tablet, 20 MG PO DAILY, (Reported) Risperidone (Risperidone) 0.5 Mg Tablet, 1 MG PO BID, (Reported) Tamsulosin HCl (Flomax) 0.4 Mg Capsule, 0.4 MG PO DAILY, (Reported) Scheduled PRN Alprazolam (Alprazolam) 0.5 Mg Tablet, 0.25 MG PO BIDP PRN for ANXIETY Hydrocodone/Acetaminophen (Hydrocodone-Acetamin 5-325 mg) 1 Each Tablet, 2 TAB PO Q6H PRN for PAIN, (Reported) Allergies Coded Allergies: procaine (Verified Allergy, Severe, difficulty breathing, 02/04/20) Penicillins (Verified Allergy, Intermediate, swelling, 02/04/20) Lorna Agrawal MD Feb 27, 2020 14:20
== END 2020-02-27 12:16 | disposition home health service (06) | DRG 813 ==
LOC: M ED 12:10 → EDBD 12:10 → M ED INP 15:21 → ENRESERV 15:48 → ENRESERVDT 16:02 → ENRESERVTM 16:02 → M MSPAV 17:39
PROVIDERS: ADMIT General Practice; ATTEND Internal Medicine
DX: D69.3 Immune thrombocytopenic purpura (principal); L03.116 Cellulitis of left lower limb; N39.0 Urinary tract infection, site not specified; I50.32 Chronic diastolic (congestive) heart failure; F01.51 Vascular dementia, unspecified severity, with behavioral disturbance; K21.9 Gastro-esophageal reflux disease without esophagitis; E78.5 Hyperlipidemia, unspecified; E11.51 Type 2 diabetes mellitus with diabetic peripheral angiopathy without gangrene; N40.0 Benign prostatic hyperplasia without lower urinary tract symptoms; G47.00 Insomnia, unspecified; F41.9 Anxiety disorder, unspecified; Z95.2 Presence of prosthetic heart valve; I11.0 Hypertensive heart disease with heart failure; Z85.038 Personal history of other malignant neoplasm of large intestine; Z87.891 Personal history of nicotine dependence; G40.909 Epilepsy, unspecified, not intractable, without status epilepticus; I25.10 Atherosclerotic heart disease of native coronary artery without angina pectoris; I48.0 Paroxysmal atrial fibrillation; Z79.899 Other long term (current) drug therapy; Z88.0 Allergy status to penicillin; Z88.8 Allergy status to other drugs, medicaments and biological substances; Z79.4 Long term (current) use of insulin; Z66 Do not resuscitate; B96.4 Proteus (mirabilis) (morganii) as the cause of diseases classified elsewhere; E86.0 Dehydration; Z11.59 Encounter for screening for other viral diseases

== ENCOUNTER → 2020-03-05 | Outpatient (REF) | payer MEDICARE ==
[~2020-03-05] MED LIST changes: -CLOPIDOGREL 75 MG TAB PO SCH; +DOCU100C16 PO; +FURO40TA2 PO
[2020-03-05 14:35] LABS: HEMOGLOBIN A1c 7.2 %
[2020-03-05 14:40] LABS: ALBUMIN 3.1 GM/DL (3.2-5.2); BILIRUBIN,TOTAL 0.4 MG/DL (0.2-1.0); CALCIUM LEVEL 9.1 MG/DL (8.8-10.2); CREATININE FOR GFR 1.29 MG/DL (0.70-1.30); GLOMERULAR FILTRATION RATE 57.2 (>42); MAGNESIUM LEVEL 1.8 MG/DL (1.8-2.4); POTASSIUM SERUM 3.3 MEQ/L (3.5-5.1); TOTAL PROTEIN 7.3 GM/DL (6.4-8.2)
== END ==
LOC: M LAB REF 13:33
PROVIDERS: ATTEND Family Medicine
DX: E11.9 Type 2 diabetes mellitus without complications (principal); E83.42 Hypomagnesemia

== ENCOUNTER → 2020-03-17 | Outpatient (REF) | payer MEDICARE ==
[2020-03-17 14:52] LABS: HEMATOCRIT 35.1 % (42.0-52.0); HEMOGLOBIN 10.8 g/dl (13.5-17.5); MEAN CORPUSCULAR HEMOGLOBIN 26.8 pg (27.0-33.0); MEAN CORPUSCULAR HGB CONC 30.8 g/dl (32.0-36.5); MEAN CORPUSCULAR VOLUME 87.1 fl (80.0-96.0); RED BLOOD COUNT 4.03 10^6/uL (4.30-6.10); WHITE BLOOD COUNT 5.6 10^3/uL (4.0-10.0)
[2020-03-17 15:32] LABS: PLATELET COUNT, AUTOMATED 42 10^3/uL (150-450)
== END ==
LOC: M SHH 14:43
PROVIDERS: ATTEND Internal Medicine Hematology
DX: D69.3 Immune thrombocytopenic purpura (principal)

== ENCOUNTER → 2020-03-24 | Outpatient (REF) | payer MEDICARE ==
[2020-03-24 13:00] LABS: HEMATOCRIT 33.6 % (42.0-52.0); HEMOGLOBIN 10.3 g/dl (13.5-17.5); MEAN CORPUSCULAR HEMOGLOBIN 26.7 pg (27.0-33.0); MEAN CORPUSCULAR HGB CONC 30.7 g/dl (32.0-36.5); RED BLOOD COUNT 3.86 10^6/uL (4.30-6.10); WHITE BLOOD COUNT 5.9 10^3/uL (4.0-10.0)
[2020-03-24 13:03] LABS: PLTBLUE- EDTA FREE CALC 58 K/mm3 (172-450)
[2020-03-24 13:17] LABS: PLATELET COUNT, AUTOMATED 54 10^3/uL (150-450)
[2020-03-24 13:18] LABS: PLTBLUE- EDTA FREE MACHINE 53 10^3/uL (172-450)
== END ==
LOC: M SHH 12:28
PROVIDERS: ATTEND Internal Medicine Medical Oncology
DX: Z01.89 Encounter for other specified special examinations (principal); D64.9 Anemia, unspecified

== ENCOUNTER → 2020-03-31 | Outpatient (REF) | payer MEDICARE ==
[2020-03-31 17:17] LABS: HEMATOCRIT 35.7 % (42.0-52.0); MEAN CORPUSCULAR HEMOGLOBIN 26.6 pg (27.0-33.0); MEAN CORPUSCULAR HGB CONC 30.8 g/dl (32.0-36.5); MEAN CORPUSCULAR VOLUME 86.2 fl (80.0-96.0); RED BLOOD COUNT 4.14 10^6/uL (4.30-6.10); WHITE BLOOD COUNT 5.8 10^3/uL (4.0-10.0)
[2020-03-31 17:20] LABS: PLATELET COUNT, AUTOMATED 98 10^3/uL (150-450)
== END ==
LOC: M SHH 16:21
PROVIDERS: ATTEND Internal Medicine Medical Oncology
DX: D69.8 Other specified hemorrhagic conditions (principal)

== ENCOUNTER → 2020-04-20 | Outpatient (REF) | payer MEDICARE ==
[~2020-04-20] MED LIST changes: +CETI-36 PO
[2020-04-20 17:56] LABS: PERCENT SATURATION 11.7 % (19.7-50.0)
[2020-04-20 17:58] LABS: BASO # 0.1 10^3/uL (0.0-0.2); BASO % 1.1 % (0.0-1.0); EOS # 0.2 10^3/uL (0.0-0.5); EOS % 2.4 % (0.0-3.0); HEMOGLOBIN 11.5 g/dl (13.5-17.5); LYMPH # 1.8 10^3/uL (1.5-5.0); LYMPH % 28.7 % (24.0-44.0); MEAN CORPUSCULAR HEMOGLOBIN 26.9 pg (27.0-33.0); MEAN CORPUSCULAR HGB CONC 31.1 g/dl (32.0-36.5); MEAN CORPUSCULAR VOLUME 86.4 fl (80.0-96.0); MONO # 0.6 10^3/uL (0.0-0.8); MONO % 8.7 % (0.0-5.0); NEUTROPHILS # 3.7 10^3/uL (1.5-8.5); NEUTROPHILS % 58.8 % (36.0-66.0); RED BLOOD COUNT 4.28 10^6/uL (4.30-6.10); WHITE BLOOD COUNT 6.3 10^3/uL (4.0-10.0)
[2020-04-20 18:19] LABS: FOLATE 12.1 NG/ML
[2020-04-20 18:47] LABS: PLATELET COUNT, AUTOMATED 32 10^3/uL (150-450)
[2020-04-23 15:09] LABS: HOMOCYST(E)INE SERUM 17.7 umol/L (0.0-19.2)
== END ==
LOC: M SHH 16:56
PROVIDERS: ATTEND Internal Medicine Hematology & Oncology
DX: D69.6 Thrombocytopenia, unspecified (principal)

== ENCOUNTER → 2020-04-27 | Outpatient (REF) | payer MEDICARE ==
[2020-04-27 17:09] LABS: BASO % 0.7 % (0.0-1.0); EOS # 0.2 10^3/uL (0.0-0.5); EOS % 2.7 % (0.0-3.0); HEMATOCRIT 34.6 % (42.0-52.0); HEMOGLOBIN 10.7 g/dl (13.5-17.5); LYMPH # 1.9 10^3/uL (1.5-5.0); LYMPH % 31.9 % (24.0-44.0); MEAN CORPUSCULAR HEMOGLOBIN 26.4 pg (27.0-33.0); MEAN CORPUSCULAR HGB CONC 30.9 g/dl (32.0-36.5); MEAN CORPUSCULAR VOLUME 85.4 fl (80.0-96.0); MONO # 0.6 10^3/uL (0.0-0.8); MONO % 9.7 % (0.0-5.0); NEUTROPHILS # 3.3 10^3/uL (1.5-8.5); NEUTROPHILS % 54.8 % (36.0-66.0); RED BLOOD COUNT 4.05 10^6/uL (4.30-6.10)
[2020-04-27 17:13] LABS: PLATELET COUNT, AUTOMATED 45 10^3/uL (150-450)
== END ==
LOC: M SHH 15:26
PROVIDERS: ATTEND Internal Medicine Hematology & Oncology
DX: D69.6 Thrombocytopenia, unspecified (principal)

== ENCOUNTER → 2020-05-01 | Outpatient (REF) | payer MEDICARE | LOC: M SFHCCLAY 09:49 | PROVIDERS: ATTEND Family Medicine | DX: T83.511D Infection and inflammatory reaction due to indwelling urethral catheter, subsequent encounter (principal) ==

== ENCOUNTER → 2020-05-05 | Outpatient (REF) | payer MEDICARE ==
[~2020-05-05] MED LIST changes: +ALPR0.25 PO; +CEPH500C PO; +CETI-24 PO; +CVS10CAP7 PO; +DEXA4TA PO; +FLUC200T2 PO; +GABA-282 PO; -GABA-843 PO; +K-TA10TA PO; -LISI-538 PO; +LISI20TA33 PO; -LISI40TA PO; +LISI40TA4 PO; +MM S100C PO; +PANT40TA29 PO; -PANT40TA3 PO; +PEPC40TA12 PO; +PRED20TA PO; -QUET1TAB7 PO; +QUET25TA3 PO; +RISP-7 PO; -RISP0.5T3 PO; +VOLT1GEL15 TOP; +[UNRECOGNIZED DRUG - CODE] PO
[2020-05-05 14:59] LABS: BASO # 0.1 10^3/uL (0.0-0.2); BASO % 0.7 % (0.0-1.0); EOS # 0.2 10^3/uL (0.0-0.5); EOS % 2.4 % (0.0-3.0); HEMATOCRIT 35.8 % (42.0-52.0); LYMPH # 1.3 10^3/uL (1.5-5.0); MEAN CORPUSCULAR HEMOGLOBIN 26.5 pg (27.0-33.0); MEAN CORPUSCULAR HGB CONC 30.7 g/dl (32.0-36.5); MEAN CORPUSCULAR VOLUME 86.3 fl (80.0-96.0); MONO # 0.6 10^3/uL (0.0-0.8); MONO % 8.5 % (0.0-5.0); NEUTROPHILS # 4.9 10^3/uL (1.5-8.5); NEUTROPHILS % 70.1 % (36.0-66.0); RED BLOOD COUNT 4.15 10^6/uL (4.30-6.10); WHITE BLOOD COUNT 7.1 10^3/uL (4.0-10.0)
[2020-05-05 15:00] LABS: PLATELET COUNT, AUTOMATED 36 10^3/uL (150-450)
[2020-05-05 15:14] LABS: PLTBLUE- EDTA FREE CALC 78 K/mm3 (172-450); PLTBLUE- EDTA FREE MACHINE 71 10^3/uL (172-450)
== END ==
LOC: M SHH 14:25
PROVIDERS: ATTEND Internal Medicine Medical Oncology
DX: Z01.89 Encounter for other specified special examinations (principal); D64.9 Anemia, unspecified

== ENCOUNTER → 2020-05-20 | Outpatient (REF) | payer MEDICARE ==
[~2020-05-20] MED LIST changes: -ALPR0.25 PO; -CEPH500C PO; -CETI-24 PO; -CVS10CAP7 PO; -DEXA4TA PO; -FLUC200T2 PO; -GABA-282 PO; +GABA-843 PO; -K-TA10TA PO; +LISI-538 PO; -LISI20TA33 PO; +LISI40TA PO; -LISI40TA4 PO; -MM S100C PO; -PANT40TA29 PO; +PANT40TA3 PO; -PEPC40TA12 PO; -PRED20TA PO; +QUET1TAB7 PO; -QUET25TA3 PO; -RISP-7 PO; +RISP0.5T3 PO; -VOLT1GEL15 TOP; -[UNRECOGNIZED DRUG - CODE] PO
[2020-05-20 14:00] LABS: BASO # 0.1 10^3/uL (0.0-0.2); BASO % 0.7 % (0.0-1.0); EOS # 0.2 10^3/uL (0.0-0.5); EOS % 2.3 % (0.0-3.0); HEMATOCRIT 34.8 % (42.0-52.0); HEMOGLOBIN 10.7 g/dl (13.5-17.5); LYMPH # 1.6 10^3/uL (1.5-5.0); LYMPH % 21.8 % (24.0-44.0); MEAN CORPUSCULAR HEMOGLOBIN 26.4 pg (27.0-33.0); MEAN CORPUSCULAR HGB CONC 30.7 g/dl (32.0-36.5); MEAN CORPUSCULAR VOLUME 85.9 fl (80.0-96.0); MONO # 0.7 10^3/uL (0.0-0.8); MONO % 9.1 % (0.0-5.0); NEUTROPHILS # 4.8 10^3/uL (1.5-8.5); NEUTROPHILS % 65.7 % (36.0-66.0); PLTBLUE- EDTA FREE CALC 121 K/mm3 (172-450); RED BLOOD COUNT 4.05 10^6/uL (4.30-6.10); WHITE BLOOD COUNT 7.4 10^3/uL (4.0-10.0)
[2020-05-20 14:01] LABS: PLATELET COUNT, AUTOMATED 73 10^3/uL (150-450)
[2020-05-20 14:18] LABS: PLTBLUE- EDTA FREE MACHINE 110 10^3/uL (172-450)
== END ==
LOC: M LABDRAWC 11:31
PROVIDERS: ATTEND Internal Medicine Hematology & Oncology
DX: D69.3 Immune thrombocytopenic purpura (principal)

== ENCOUNTER → 2020-06-02 | Outpatient (REF) | payer MEDICARE ==
[~2020-06-02] MED LIST changes: +ALPR0.25 PO; +CEPH500C PO; +CETI-24 PO; +CVS10CAP7 PO; +DEXA4TA PO; +K-TA10TA PO; +MM S100C PO; +PANT40TA29 PO; -PANT40TA3 PO; +PEPC40TA12 PO; +PRED20TA PO; +VOLT1GEL15 TOP
[2020-06-02 16:21] LABS: BASO # 0.1 10^3/uL (0.0-0.2); EOS # 0.2 10^3/uL (0.0-0.5); EOS % 2.6 % (0.0-3.0); HEMATOCRIT 36.6 % (42.0-52.0); HEMOGLOBIN 11.3 g/dl (13.5-17.5); LYMPH # 1.6 10^3/uL (1.5-5.0); LYMPH % 25.4 % (24.0-44.0); MEAN CORPUSCULAR HEMOGLOBIN 26.2 pg (27.0-33.0); MEAN CORPUSCULAR HGB CONC 30.9 g/dl (32.0-36.5); MEAN CORPUSCULAR VOLUME 84.7 fl (80.0-96.0); MONO # 0.5 10^3/uL (0.0-0.8); MONO % 8.5 % (0.0-5.0); NEUTROPHILS # 3.8 10^3/uL (1.5-8.5); NEUTROPHILS % 62.2 % (36.0-66.0); RED BLOOD COUNT 4.32 10^6/uL (4.30-6.10); WHITE BLOOD COUNT 6.1 10^3/uL (4.0-10.0)
== END ==
LOC: M LABDRAWC 15:48
PROVIDERS: ATTEND Internal Medicine Medical Oncology
DX: D69.6 Thrombocytopenia, unspecified (principal)

== ENCOUNTER → 2020-06-05 | Outpatient (REF) | payer MEDICARE ==
[2020-06-05 19:01] LABS: APPEARANCE, URINE HAZY (CLEAR); BACTERIA, URINE AUTO NEGATIVE (NEGATIVE); BILIRUBIN, URINE AUTO NEGATIVE (NEGATIVE); BLOOD, URINE BLOOD 1+ (NEGATIVE); COLOR, URINE YELLOW (YELLOW); GLUCOSE, URINE (UA) AUTO NEGATIVE (NEGATIVE); KETONE, URINE AUTO NEGATIVE (NEGATIVE); LEUKOCYTE ESTERASE, URINE AUTO 3+ (NEGATIVE); MUCUS, URINE SMALL (NEGATIVE); NITRITE, URINE AUTO NEGATIVE (NEGATIVE); PROTEIN, URINE AUTO NEGATIVE (NEGATIVE); RBC, URINE AUTO 11 /HPF (0-3); SPECIFIC GRAVITY URINE AUTO 1.015 (1.002-1.035); SQUAMOUS EPITHELIAL CELL UR AU 1 /HPF (0-6); UROBILINOGEN, URINE AUTO 0.2 mg/dL (0.0-2.0); WBC, URINE AUTO 58 /HPF (0-3)
== END ==
LOC: M SMT 16:56
PROVIDERS: ATTEND Nurse Practitioner Family
DX: N39.0 Urinary tract infection, site not specified (principal)

== ENCOUNTER 2020-06-28 14:30 | Emergency (ER) | payer MEDICARE ==
[~2020-06-28 14:30] MED LIST changes: -ALPR0.25 PO; -CEPH500C PO; -CETI-24 PO; -CVS10CAP7 PO; -DEXA4TA PO; -K-TA10TA PO; -MM S100C PO; -PEPC40TA12 PO; -PRED20TA PO; -VOLT1GEL15 TOP
[2020-08-13 10:03] LABS: APPEARANCE, URINE CLOUDY (CLEAR); BACTERIA, URINE AUTO 1+ (NEGATIVE); BILIRUBIN, URINE AUTO NEGATIVE (NEGATIVE); BLOOD, URINE BLOOD NEGATIVE (NEGATIVE); COLOR, URINE YELLOW (YELLOW); GLUCOSE, URINE (UA) AUTO NEGATIVE (NEGATIVE); KETONE, URINE AUTO NEGATIVE (NEGATIVE); LEUKOCYTE ESTERASE, URINE AUTO 3+ (NEGATIVE); MUCUS, URINE SMALL (NEGATIVE); NITRITE, URINE AUTO NEGATIVE (NEGATIVE); PROTEIN, URINE AUTO 1+ mg/dL (NEGATIVE); RBC, URINE AUTO 18 /HPF (0-3); SPECIFIC GRAVITY URINE AUTO 1.015 (1.002-1.035); SQUAMOUS EPITHELIAL CELL UR AU 0 /HPF (0-6); UROBILINOGEN, URINE AUTO 0.2 mg/dL (0.0-2.0); WBC, URINE AUTO TNTC /HPF (0-3)
== END 2020-06-28 14:43 | disposition home or self-care (01) ==
LOC: M ED 14:30
DX: T83.098A Other mechanical complication of other urinary catheter, initial encounter (principal); C18.9 Malignant neoplasm of colon, unspecified; F02.80 Dementia in other diseases classified elsewhere, unspecified severity, without behavioral disturbance, psychotic disturbance, mood disturbance, and anxiety; N40.1 Benign prostatic hyperplasia with lower urinary tract symptoms; Z88.0 Allergy status to penicillin; Z88.8 Allergy status to other drugs, medicaments and biological substances; Z79.899 Other long term (current) drug therapy

== ENCOUNTER 2020-07-08 08:35 | Inpatient (IN) | payer MEDICARE ==
[2020-07-08] VITALS (11 sets, daily range): BP systolic 114–177; BP diastolic 59–85
[~2020-07-08] VITALS: Ht 177.8 cm; Wt 82.5 kg
[2020-07-08] MEDS ORDERED: ACETAMINOPHEN TAB 650MG DOSE (2X325MG) PO ONE (08:45)
[2020-07-08] MEDS ORDERED: TETANUS/DIPHTHERIA TOX ADSORB ADULT 0.5ML SYR/VIAL (90714) IM ONE (08:45)
--- NOTE | 2020-07-08 09:56 | REPVR ---
PROCEDURE INFORMATION: Exam: CT Head Without Contrast Exam date and time: 07/08/2020 9:39 AM Age: 80 years old Clinical indication: Injury or trauma; Fall; Initial encounter; Blunt trauma (contusions or hematomas); Prior surgery; Additional info: Altered mental status TECHNIQUE: Imaging protocol: Computed tomography of the head without contrast. Radiation optimization: All CT scans at this facility use at least one of these dose optimization techniques: automated exposure control; mA and/or kV adjustment per patient size (includes targeted exams where dose is matched to clinical indication); or iterative reconstruction. COMPARISON: CT Head without contrast 07/08/2019 4:08 PM FINDINGS: Brain: Generalized atrophy and evidence ischemic disease involving periventricular subcortical white matter bilaterally. Ventricles: Normal. No ventriculomegaly. Bones/joints: Unremarkable. No acute fracture. Sinuses: Mild paranasal sinus disease. Mastoid air cells: Visualized mastoid air cells are well aerated. Soft tissues: Unremarkable. IMPRESSION: No acute intracranial pathology. Electronically signed by: Jonnie Grande On 07/08/2020 09:55:50 AM
--- NOTE | 2020-07-08 09:58 | REPVR ---
PROCEDURE INFORMATION: Exam: CT Cervical Spine Without Contrast Exam date and time: 07/08/2020 9:39 AM Age: 80 years old Clinical indication: Injury or trauma; Fall; Initial encounter; Blunt trauma TECHNIQUE: Imaging protocol: Computed tomography images of the cervical spine without contrast. Radiation optimization: All CT scans at this facility use at least one of these dose optimization techniques: automated exposure control; mA and/or kV adjustment per patient size (includes targeted exams where dose is matched to clinical indication); or iterative reconstruction. COMPARISON: CT Spine,cervical w/o contrast 06/08/2019 9:17 PM FINDINGS: Vertebrae: No acute fracture. Normal alignment. Discs/Spinal canal/Neural foramina: Multilevel degenerative disease and facet hypertrophy. Stenosis of the spinal canal at multiple levels most pronounced at C6-C7. Neural foraminal stenosis at several levels. Soft tissues: Unremarkable. Lungs: Mild centrilobular emphysema. Vasculature: Atherosclerotic disease. IMPRESSION: No acute fractures. Electronically signed by: Jonnie Grande On 07/08/2020 09:58:03 AM
--- NOTE | 2020-07-08 10:43 | REPVR ---
PROCEDURE INFORMATION: Exam: XR Chest, 1 View Exam date and time: 07/08/2020 8:42 AM Age: 80 years old Clinical indication: Injury or trauma; Fall; Initial encounter; Sprain or strain; Injury details: AMS; Additional info: Altered mental status TECHNIQUE: Imaging protocol: XR of the chest Views: 1 view. COMPARISON: CR Chest, 1 view 02/04/2020 12:44 PM FINDINGS: Lungs: Low lung volumes with mild elevation of the left hemidiaphragm. No evidence of airspace consolidation. Pleural space: No significant pleural effusions. No pneumothorax. Heart/Mediastinum: Cardiac size is normal and mediastinal contour stable. Thoracic atherosclerosis. Postoperative change from sternotomy and cardiac surgery. Bones/joints: Bones are stable. Degenerative changes. IMPRESSION: No acute abnormalities are identified. Electronically signed by: Sergio Lewis On 07/08/2020 10:43:29 AM
[2020-07-08] MEDS ORDERED: NS 1,000 ML IV ONE (10:45)
--- NOTE | 2020-07-08 10:48 | REPVR ---
PROCEDURE INFORMATION: Exam: XR Left Humerus Exam date and time: 07/08/2020 8:42 AM Age: 80 years old Clinical indication: Pain; Upper arm; Left; Additional info: Altered mental status TECHNIQUE: Imaging protocol: XR Left humerus Views: 2 or more views. COMPARISON: No relevant prior studies available. FINDINGS: Bones/joints: Bone mineralization is normal. Widening of the acromioclavicular joint appears postsurgical. Degenerative change involving the glenohumeral joint. No acute fracture. No dislocation. Soft tissues: Soft tissues are unremarkable. IMPRESSION: No acute bony abnormality is identified. Electronically signed by: Sergio Lewis On 07/08/2020 10:48:36 AM
[2020-07-08 10:52] LABS: BASO % 0.3 % (0.0-1.0); EOS % 0.1 % (0.0-3.0); HEMATOCRIT 40.3 % (42.0-52.0); HEMOGLOBIN 13.2 g/dl (13.5-17.5); LYMPH # 0.9 10^3/uL (1.5-5.0); LYMPH % 8.8 % (24.0-44.0); MEAN CORPUSCULAR HEMOGLOBIN 27.9 pg (27.0-33.0); MEAN CORPUSCULAR HGB CONC 32.8 g/dl (32.0-36.5); MEAN CORPUSCULAR VOLUME 85.2 fl (80.0-96.0); MONO # 0.7 10^3/uL (0.0-0.8); MONO % 7.1 % (0.0-5.0); NEUTROPHILS # 8.5 10^3/uL (1.5-8.5); NEUTROPHILS % 83.3 % (36.0-66.0); RED BLOOD COUNT 4.73 10^6/uL (4.30-6.10); WHITE BLOOD COUNT 10.1 10^3/uL (4.0-10.0)
--- NOTE | 2020-07-08 10:55 | REPVR ---
PROCEDURE INFORMATION: Exam: XR Left Forearm Exam date and time: 07/08/2020 8:42 AM Age: 80 years old Clinical indication: Pain; Lower or forearm; Left; Additional info: Altered mental status TECHNIQUE: Imaging protocol: XR Left forearm. Views: 2 views. COMPARISON: No relevant prior studies available. FINDINGS: Bones/joints: Bone mineralization is normal. No acute fracture or dislocation. Mild degenerative changes. Soft tissues: Soft tissues are unremarkable. IMPRESSION: No acute bony abnormality is identified. Electronically signed by: Sergio Lewis On 07/08/2020 10:55:13 AM
[2020-07-08 11:00] LABS: INR 1.12; PROTHROMBIN TIME 14.7 SECONDS (11.8-14.0)
[2020-07-08 11:01] LABS: PARTIAL THROMBOPLASTIN TIME 29.6 SECONDS (25.0-38.4)
[2020-07-08 11:08] LABS: PLATELET COUNT, AUTOMATED 1 10^3/uL (150-450)
[2020-07-08] MEDS ORDERED: CIPROFLOXACIN 400 MG in IV 1 EA IV ONE (11:30)
[2020-07-08 11:31] LABS: ALBUMIN 2.8 GM/DL (3.2-5.2); ALT/SGPT 33 U/L (12-78); BILIRUBIN,DIRECT 0.4 MG/DL (0.0-0.2); BILIRUBIN,TOTAL 1.1 MG/DL (0.2-1.0); BLOOD UREA NITROGEN 18 MG/DL (7-18); CALCIUM LEVEL 8.7 MG/DL (8.8-10.2); CARBON DIOXIDE LEVEL 25 MEQ/L (21-32); CHLORIDE LEVEL 108 MEQ/L (98-107); CK-MB VALUE MASS 20.6 NG/ML (<3.6); CPK CREATINE PHOSPHOKINASE 2134 U/L (39-308); GLOMERULAR FILTRATION RATE > 60.0 (>35); GLUCOSE, FASTING 168 MG/DL (70-100); MB/CK RELATIVE INDEX 0.97 (< OR =4); POTASSIUM SERUM 3.5 MEQ/L (3.5-5.1); SODIUM LEVEL 142 MEQ/L (136-145); THYROID STIMULATING HORMONE 0.843 uIU/ML (0.358-3.740); TOTAL PROTEIN 6.2 GM/DL (6.4-8.2); TROPONIN I < 0.02 NG/ML (< 0.10)
[2020-07-08] MEDS ORDERED: K-TA10TA PO (11:56)
[2020-07-08] MEDS ORDERED: PEPC40TA12 PO (11:56)
[2020-07-08] MEDS ORDERED: BISO10TA14 PO (11:56)
[2020-07-08] MEDS ORDERED: MM S100C PO (11:56)
[2020-07-08] MEDS ORDERED: KEPP250T5 PO ×2 (12:11→12:21)
[2020-07-08] MEDS ORDERED: CETI-24 PO (12:11)
[2020-07-08] MEDS ORDERED: PRAV20TA2 PO (12:11)
[2020-07-08] MEDS ORDERED: PANT40TA29 PO (12:11)
[2020-07-08] MEDS ORDERED: RISP0.5T3 PO (12:11)
[2020-07-08] MEDS ORDERED: NORC1TAB7 PO (12:11)
[2020-07-08] MEDS ORDERED: ALPR0.25 PO (12:11)
[2020-07-08] MEDS ORDERED: LANTINJ4 SC (12:11)
[2020-07-08] MEDS ORDERED: [UNRECOGNIZED DRUG - CODE] PO (12:11)
[2020-07-08] MEDS ORDERED: CVS10CAP7 PO (12:11)
[2020-07-08] MEDS ORDERED: MAGN64TASA PO (12:26)
[2020-07-08] MEDS ORDERED: ACETAMINOPHEN TAB 650MG DOSE (2X325MG) PO PRN (12:30)
[2020-07-08] MEDS ORDERED: IMMUNE GLOBULIN 10% 0 GM in IV 1 EA IV SCH (13:00)
[2020-07-08] MEDS: predniSONE 20 MG TAB PO SCH ×2 (13:36→20:23)
[2020-07-08] MEDS: IMMUNE GLOBULIN 10% 20 GM in IV 1 EA IV SCH (15:01)
[2020-07-08] MEDS ORDERED: GLUCOSE 4GM CHEW TABLET PO PRN (18:00)
[2020-07-08] MEDS ORDERED: DEXTROSE 50% 50 ML SYRINGE IV PRN (18:00)
[2020-07-08] MEDS ORDERED: GLUCAGON INJ 1MG VIAL SC PRN (18:00)
[2020-07-08] MEDS ORDERED: NORCO, ANEXSIA 5/325MG TABLET (HYDROcodone/ACETAMINOPHEN) PO PRN (18:00)
[2020-07-08] MEDS: IMMUNE GLOBULIN 10% 10 GM in IV 1 EA IV SCH (18:14)
--- NOTE | 2020-07-08 18:18 | HPEPDOC ---
General Date of Admission Jul 08, 2020 at 13:05 Date of Service: Jul 08, 2020 Chief Complaint The patient is a 80-year-old male admitted with a reason for visit of Acute Itp. Source: Family Exam Limitations: Dementia Timing/Duration: 4-6 hours Severity: Severe Associated Symptoms: Unobtainable History of Present Illness 80 y.o M with PMH of stage 1 colon cancer s/p resection and know hx of ITP presented for further assessment after the daughter found him on the floor besides his arm chair. SHe noticed him on the floor earlier this AM and subsequently brought him to the ER. She noted seeing new forehead and left arm bruising that was not present last night. She noted patient has history of dementia and denied notcing any changes from baseline. She denied being aware of any fevers, chills, SOB. She denied patient expressing any abdmonal discomfort or change in urinary symptoms recently. of note, he follows with Dr. Quiroz for ITP and had noticeable platelet decline over the last two checks. She expressed some financial difficulty with a previous regimen and she expressed platelets were declining since the change. No other concerns at this time. ED course: no acute fracture. Home Medications Scheduled Alprazolam (Alprazolam) 0.25 Mg Tablet, 0.25 MG PO BID, (Reported) Bisoprolol Fumarate (Bisoprolol Fumarate) 10 Mg Tablet, 10 MG PO DAILY, (Reported) Cetirizine HCl (Cetirizine HCl) 10 Mg Tablet, 10 MG PO DAILY, (Reported) Docusate Sodium (Stool Softener) 100 Mg Capsule, 100 MG PO BID, (Reported) Famotidine (Pepcid) 40 Mg Tablet, 40 MG PO DAILY, (Reported) Fostamatinib Disodium (Tavalisse) 150 Mg Tablet, 150 MG PO BID, (Reported) Insulin Glargine,Hum.rec.anlog (Lantus Solostar) 100 Unit/1 Ml Insuln.pen, 26 UNITS SC DAILY, (Reported) Levetiracetam (Keppra) 250 Mg Tablet, 250 MG PO QAM, (Reported) Levetiracetam (Keppra) 250 Mg Tablet, 500 MG PO QHS, (Reported) Magnesium Chloride (Mag64) 64 Mg Tablet.dr, 64 MG PO BID, (Reported) Melatonin (Melatonin) 10 Mg Capsule, 10 MG PO QHS, (Reported) Pantoprazole Sodium (Pantoprazole Sodium) 40 Mg Tablet.dr, 40 MG PO QHS, (Reported) Potassium Chloride (K-Tab ER) 10 Meq Tablet.er, 10 MEQ PO BID, (Reported) Pravastatin Sodium (Pravastatin Sodium) 20 Mg Tablet, 20 MG PO QHS, (Reported) Risperidone (Risperidone) 0.5 Mg Tablet, 1 MG PO QHS, (Reported) Scheduled PRN Hydrocodone/Acetaminophen ([place] 5-325 Tablet) 1 Each Tablet, 1 TAB PO Q6H PRN for PAIN, (Reported) Allergies Coded Allergies: procaine (Verified Allergy, Severe, difficulty breathing, 02/04/20) Penicillins (Verified Allergy, Intermediate, swelling, 02/04/20) Past Medical History Medical History ITP Aortic Valve replacement KIMANI s/p stent Surgical History no recent surgery bowl resection - stage 1 colon cancer coronary stent Aortic Valve replacement Family History Significant Family History: No pertinent family hx, Noncontributory Social History * Smoker: less than 1 pack/day Alcohol: Denies Drugs: denies Psychosocial History: Dementia A-FIB/CHADSVASC A-FIB History Current/History of A-Fib/PAF?: No Current PO Anticoag Therapy: No Review of Systems Constitutional: Denies: Chills, Fever, Night Sweats Eyes: Denies: Pain, Vision change ENT: Denies: Head Aches, Ear Pain, Dysphagia Skin: Reports: Bruising; Denies: Lesions, Breakdown Pulmonary: Denies: Dyspnea, Cough Cardiovascular: Denies: Chest Pain, Palpitations, Orthopnea, Paroxysmal Noc. Dyspnea, Lt Headedness Gastrointestinal: Denies: Nausea, Vomiting, Abdominal Pain, Diarrhea Genitourinary: Denies: Dysuria, Frequency, Incontinence, Retention Hematologic: Reports: Bruising, Petecchia; Denies: Bleeding Excessively Musculoskeletal: Denies: Neck Pain, Back Pain, Joint Pain, Muscle Pain, Spasms Neurological: Denies: Weakness, Numbness, Change in speech, Confusion Physical Examination General Exam: Positive: No Acute Distress Eye Exam: Positive: PERRLA, Conjunctiva & lids normal ENT Exam: Positive: Atraumatic Neck Exam: Positive: Supple Chest Exam: Positive: Clear to auscultation, Normal air movement Heart Exam: Positive: Rate Normal, Regular Rhythm Telemetry: Positive: Sinus Abdomen Exam: Positive: Normal bowel sounds, Soft Extremity Exam: Positive: Edema (no pitting edema), Normal pulses Skin Exam: Positive: Other skin issue (petechia present) Neuro Exam: Positive: Sensation Intact Vital Signs Vital Signs Date Time Temp Pulse Resp B/P (MAP) Pulse Ox O2 Delivery O2 Flow Rate FiO2 07/08/20 16:56 97.4 68 18 138/74 (95) 99 Room Air Laboratory Data Labs 24H Laboratory Tests 2 07/08/20 08:55: Urine Color VIKI, Urine Appearance CLOUDYH, Urine pH 8.0, Urine Specific [place] 1.024, Urine Protein 2+H, Urine Glucose (UA) 2+H, Urine Ketones NEGATIVE, Urine Blood 2+H, Urine Nitrite NEGATIVE, Urine Bilirubin NEGATIVE, Urine Urobilinogen 2.0H, Urine Leukocyte Esterase 3+H, Urine WBC (Auto) 75H, Urine RBC (Auto) 13H, Urine Hyaline Casts (Auto) 0, Urine Bacteria (Auto) 3+H, Urine Squamous Epithelial Cells 1, Urine Triple Phosphate Cryst (Auto) SMALL, Urine Amorphous Sediment SMALLH, Urine Mucus (Auto) SMALL, Urine Sperm (Auto) 07/08/20 09:00: Lactic Acid Level 2.4*H, Ammonia 29 07/08/20 10:30: Immature Granulocyte % (Auto) 0.4, Neutrophils (%) (Auto) 83.3H, Lymphocytes (%) (Auto) 8.8L, Monocytes (%) (Auto) 7.1H, Eosinophils (%) (Auto) 0.1, Basophils (%) (Auto) 0.3, Neutrophils # (Auto) 8.5, Lymphocytes # (Auto) 0.9L, Monocytes # (Auto) 0.7, Eosinophils # (Auto) 0.0, Basophils # (Auto) 0.0, Nucleated Red Blood Cells % (auto) 0.0, Immature Platelet Fraction 19.0H, Prothrombin Time 14.7H, Prothromb Time International Ratio 1.12, Activated Partial Thromboplast Time 29.6, Anion Gap 9, Glomerular Filtration Rate > 60.0, Calcium Level 8.7L, Total Bilirubin 1.1H, Direct Bilirubin 0.4H, Aspartate Amino Transf (AST/SGOT) 67H, Alanine Aminotransferase (ALT/SGPT) 33, Alkaline Phosphatase 130H, Total Creatine Kinase 2134H, Creatine Kinase MB 20.6H, Creatine Kinase MB Relative Index 0.97, Troponin I < 0.02, Total Protein 6.2L, Albumin 2.8L, Albumin/Globu carmelita Ratio 0.8, Thyroid Stimulating Hormone (TSH) 0.843 07/08/20 13:17: Lactic Acid Followup at 4 Hours 1.5 CBC/BMP Laboratory Tests 07/08/20 10:30 Microbiology Microbiology 07/08/20 Blood Culture, Received Pending 07/08/20 Blood Culture, Received Pending 07/08/20 Urine Culture, Received Pending Assessment/Plan 1. Thrombocytopenia - acute on chronic - hx of ITP. reviwed case with hem/on - recommends to start IVIG and prednisone. orders in place. heme/onc following 2. Sepsis: source complicated UTI - UA suggestive of infection. initial LA elevated, normalized on repeat check. received Cipro in ED -will switch to rocephin; renal US ordered to r/o obstruction - will f/u on cultures 3. Hx of dementia - continue home Meds 4. Hx of insulin dependent DM-II -continue insulin regimen with SSI Plan / VTE VTE Prophylaxis Ordered?: No VTE Exclusion Pharmacological: Thrombocytopenia Plan Anticipated Discharge: Home With Services Advanced Directives: Do Not Resuscitate (DNR), Do Not Intubate (DNI) PERFECTO RODRIGUEZ DO Jul 08, 2020 18:18
--- NOTE | 2020-07-08 18:27 | CR.PDOC ---
General Date of Consultation: Jul 08, 2020 Referring Provider: PERFECTO RODRIGUEZ DO Primary Care Physician: Blaine Byrd MD Attending Physician: PERFECTO RODRIGUEZ DO Consultation REASON FOR CONSULTATION/CHIEF COMPLAINT: ITP. HISTORY OF PRESENT ILLNESS: Mr. Augie Samano is an 80-year-old man diagnosed with ITP 06/2018. At that time he presented with anemia and significant thrombocytopenia with bone marrow aspiration and biopsy 07/05/2018 showing a high normocellular bone marrow with slightly increased number of mature looking megakaryocytes suggestive of peripheral destruction or sequestration of platelets. No evidence of hematological malignancy. He was also found to have platelet clumping in addition to ITP. Since then he has had treatment with IVIG, high-dose steroids, rituximab, and eventually Fostamatinib (Tavalisse) which was started December 2018. In November 2019 he was switched to Romiplostim after [employer] consultant to cover co-pay for Fostamatinib (Tavalisse) ran out. He was on Romiplostim from November to May of this year with adequate platelet counts, although he did receive IVIG in January and February of this year for acute drop in platelet counts. He was switched back to Fostamatinib as requested by him and his last month when co-pay for Fostamatinib became affordable. His reports that he was compliant with taking Fostamatinib, although he did miss yesterday's dose and today's dose. His noticed that Mr. Samano was laying down on the floor all night refusing to get up with petechiae and ecchymosis on the left side of his face and he was brought to the ER for this. His reports that Mr. Samano did not fall but slid down to the floor. He had a CT head in the ER which showed no acute intracranial pathology, no acute fracture in bones and unremarkable soft tissues. Left humeral x-ray, left radial/ulnar x-rays and cervical spine CT did not show any fracture. Platelet count was noted to be 1 x 10-3/UL. He has been started on IVIG and prednisone. ALLERGIES: Please see below. HOME MEDICATIONS: Please see below. PAST MEDICAL HISTORY: Hypertension. Diabetes mellitus. Coronary artery disease with coronary stent placement. Aortic valve disease with stenosis for which he underwent porcine valve replacement. Congestive heart failure. GERD. Stage I colon cancer 2017 for which he underwent resection. Spinal stenosis. Aortic valve repair. Appendectomy. Carpal tunnel syndrome. Degenerative joint disease. Carotid endarterectomy 2007. PAST SURGICAL HISTORY: As above in past medical history FAMILY HISTORY: The patient's father had an unknown malignancy. One brother had lung cancer. Another brother had colon cancer. SOCIAL HISTORY: . Lives with his who holds healthcare proxy. Former smoker. Former alcohol use, but no recent alcohol use. REVIEW OF SYSTEMS: General: Reports: Fatigue Constitutional: Denies: Chills, Weight Loss Eyes: Denies: Vision change HEENT: Denies: Head Aches, Dysphagia, Sore Throat, Epistaxis Skin: Denies: Rash, Lesions, Jaundice. Reports: Bruising and petechia. Pulmonary: Denies: Dyspnea, Cough Cardiovascular: Denies: Chest Pain, Palpitations, Orthopnea, Edema Gastrointestinal: Denies: Nausea, Vomiting, Diarrhea Genitourinary: Denies: Dysuria, Frequency, Incontinence Hematologic: Reports: Bruising, Petecchia. Denies: Rectal bleeding, urinary bleeding, gum bleeding and epistaxis. Musculoskeletal: Reports: Muscle pain, Muscle stiffness Neurological: Reports: Weakness, Incoordination Psych: Reports: Mood Normal PHYSICAL EXAMINATION: VITAL SIGNS: Please see below. GENERAL APPEARANCE: Awake, answered simple questions appropriately, chronically ill-looking. HEENT: Ecchymosis and petechiae on left side of face. Slightly dry oral mucosa. No palpable cervical lymph nodes. RESPIRATORY: Fair entry. No rales no rhonchi, no wheeze. CARDIOVASCULAR: S1, S2 regular. No murmur. No gallop. ABDOMEN: Soft. No guarding. No palpable masses. Positive bowel sounds. EXTREMITIES: Ecchymosis on left upper extremities. Mild pedal edema bilaterally. Mild erythema on both lower extremities from chronic venous stasis. NEUROLOGICAL: Alert. Oriented to place and person, and partly to time. PSYCHIATRIC: Mood normal. LABORATORY DATA: Please see below. ASSESSMENT/PLAN: Chronic ITP with acute decrease in platelet count. Currently on Fostamatinib (Tavalisse). The reports compliance to medication. Agree with IVIG 1 mg/kg per day for 2 days. Agree with prednisone 80 mg daily. The is requesting decreased dose once patient is discharged. Mr. Samano also has known pseudothrombocytopenia/platelet clumping so please also send EDTA free platelet count daily in addition to normal tube CBC. EDTA free platelet count would be a more accurate assessment of platelet counts. Platelet transfusion to be considered if the patient shows evidence of active bleeding. The patient should continue own supply of Fostamatinib (Tavalisse) while in hospital. We have advised the patient's to bring in the patient's supply of Fostamatinib (Tavalisse) from home. Once discharged, we'll consider reinstituting Romiplostim. Thank you for informing us of Mr. Augie Samano's admission. Vital Signs/I&O Vital Signs Date Time Temp Pulse Resp B/P (MAP) Pulse Ox O2 Delivery O2 Flow Rate FiO2 07/08/20 16:30 97.5 65 16 164/85 (111) 99 07/08/20 15:30 Room Air Laboratory Data Labs 24H Laboratory Tests 2 07/08/20 08:55: Urine Color VIKI, Urine Appearance CLOUDYH, Urine pH 8.0, Urine Specific [place] 1.024, Urine Protein 2+H, Urine Glucose (UA) 2+H, Urine Ketones NEGATIVE, Urine Blood 2+H, Urine Nitrite NEGATIVE, Urine Bilirubin NEGATIVE, Urine Urobilinogen 2.0H, Urine Leukocyte Esterase 3+H, Urine WBC (Auto) 75H, Urine RBC (Auto) 13H, Urine Hyaline Casts (Auto) 0, Urine Bacteria (Auto) 3+H, Urine Squamous Epithelial Cells 1, Urine Triple Phosphate Cryst (Auto) SMALL, Urine Amorphous Sediment SMALLH, Urine Mucus (Auto) SMALL, Urine Sperm (Auto) 07/08/20 09:00: Lactic Acid Level 2.4*H, Ammonia 29 07/08/20 10:30: Immature Granulocyte % (Auto) 0.4, Neutrophils (%) (Auto) 83.3H, Lymphocytes (%) (Auto) 8.8L, Monocytes (%) (Auto) 7.1H, Eosinophils (%) (Auto) 0.1, Basophils (%) (Auto) 0.3, Neutrophils # (Auto) 8.5, Lymphocytes # (Auto) 0.9L, Monocytes # (Auto) 0.7, Eosinophils # (Auto) 0.0, Basophils # (Auto) 0.0, Nucleated Red Blood Cells % (auto) 0.0, Immature Platelet Fraction 19.0H, Prothrombin Time 14.7H, Prothromb Time International Ratio 1.12, Activated Partial Thromboplast Time 29.6, Anion Gap 9, Glomerular Filtration Rate > 60.0, Calcium Level 8.7L, Total Bilirubin 1.1H, Direct Bilirubin 0.4H, Aspartate Amino Transf (AST/SGOT) 67H, Alanine Aminotransferase (ALT/SGPT) 33, Alkaline Phosphatase 130H, Total Creatine Kinase 2134H, Creatine Kinase MB 20.6H, Creatine Kinase MB Relative Index 0.97, Troponin I < 0.02, Total Protein 6.2L, Albumin 2.8L, Albumin/Globulin Ratio 0.8, Thyroid Stimulating Hormone (TSH) 0.843 07/08/20 13:17: Lactic Acid Followup at 4 Hours 1.5 CBC/BMP Laboratory Tests 07/08/20 10:30 Microbiology Microbiology 07/08/20 Blood Culture, Received Pending 07/08/20 Blood Culture, Received Pending 07/08/20 Urine Culture, Received Pending Allergies Coded Allergies: procaine (Verified Allergy, Severe, difficulty breathing, 02/04/20) Penicillins (Verified Allergy, Intermediate, swelling, 02/04/20) Home Medications Scheduled Alprazolam (Alprazolam) 0.25 Mg Tablet, 0.25 MG PO BID, (Reported) Bisoprolol Fumarate (Bisoprolol Fumarate) 10 Mg Tablet, 10 MG PO DAILY, (Reported) Cetirizine HCl (Cetirizine HCl) 10 Mg Tablet, 10 MG PO DAILY, (Reported) Docusate Sodium (Stool Softener) 100 Mg Capsule, 100 MG PO BID, (Reported) Famotidine (Pepcid) 40 Mg Tablet, 40 MG PO DAILY, (Reported) Fostamatinib Disodium (Tavalisse) 150 Mg Tablet, 150 MG PO BID, (Reported) Insulin Glargine,Hum.rec.anlog (Lantus Solostar) 100 Unit/1 Ml Insuln.pen, 26 UNITS SC DAILY, (Reported) Levetiracetam (Keppra) 250 Mg Tablet, 250 MG PO QAM, (Reported) Levetiracetam (Keppra) 250 Mg Tablet, 500 MG PO QHS, (Reported) Magnesium Chloride (Mag64) 64 Mg Tablet.dr, 64 MG PO BID, (Reported) Melatonin (Melatonin) 10 Mg Capsule, 10 MG PO QHS, (Reported) Pantoprazole Sodium (Pantoprazole Sodium) 40 Mg Tablet.dr, 40 MG PO QHS, (Reported) Potassium Chloride (K-Tab ER) 10 Meq Tablet.er, 10 MEQ PO BID, (Reported) Pravastatin Sodium (Pravastatin Sodium) 20 Mg Tablet, 20 MG PO QHS, (Reported) Risperidone (Risperidone) 0.5 Mg Tablet, 1 MG PO QHS, (Reported) Scheduled PRN Hydrocodone/Acetaminophen ([place] 5-325 Tablet) 1 Each Tablet, 1 TAB PO Q6H PRN for PAIN, (Reported) JOAN DUCKWORTH MD Jul 08, 2020 18:18
--- NOTE | 2020-07-08 19:07 | REPVR ---
PROCEDURE INFORMATION: Exam: US Retroperitoneal Limited, Kidneys Exam date and time: 07/08/2020 6:51 PM Age: 80 years old Clinical indication: Other: R/O renal obstruction TECHNIQUE: Imaging protocol: Real-time ultrasound of the retroperitoneum with image documentation. Examination was focused on the kidneys. COMPARISON: RENAL US 05/16/2016 7:51 AM FINDINGS: Right kidney measures 13.3 cm in length. Left kidney measures 11.5 cm in length. Renal parenchymal echotexture and cortical thickness are normal. No solid renal mass. Upper pole 13 mm right renal cyst. No hydronephrosis. No shadowing, echogenic foci suggestive of stones. Bladder is decompressed with a urinary catheter and not visualized. IMPRESSION: No evidence of renal obstruction or medical renal disease. Upper pole simple fluid right renal cyst, incidental Electronically signed by: Fabiano George On 07/08/2020 19:07:43 PM
[2020-07-08] MEDS: cefTRIAXone SOD 1 GM in D5W MINI-BAG PLUS 50 ML IV SCH (20:10)
[2020-07-08] MEDS: DOCUSATE SODIUM 100 MG CAP PO SCH (20:22)
[2020-07-08] MEDS: MAGNESIUM CHLORIDE 64 MG TABCR (SLO MAG) PO SCH (20:22)
[2020-07-08] MEDS: PANTOPRAZOLE 40MG TAB (PROTONIX) PO SCH (20:23)
[2020-07-08] MEDS: ALPRAZolam 0.25 MG TAB PO SCH (20:23)
[2020-07-08] MEDS: risperiDONE 0.5 MG TAB PO SCH (20:23)
[2020-07-08] MEDS: levETIRAcetam 250MG TABLET (KEPPRA) PO SCH (20:24)
[2020-07-08] MEDS: PRAVASTATIN 20 MG TAB PO SCH (20:24)
[2020-07-08] MEDS: POTASSIUM CHLORIDE 10 MEQ SR TABLET PO SCH (20:24)
[2020-07-08] MEDS: IMMUNE GLOBULIN 10% 5 GM in IV 1 EA IV SCH (20:27)
[2020-07-09] VITALS (19 sets, daily range): BP systolic 117–155; BP diastolic 59–74
[2020-07-09 06:55] LABS: HEMOGLOBIN 12.2 g/dl (13.5-17.5); MEAN CORPUSCULAR HEMOGLOBIN 28.6 pg (27.0-33.0); MEAN CORPUSCULAR HGB CONC 33.9 g/dl (32.0-36.5); MEAN CORPUSCULAR VOLUME 84.3 fl (80.0-96.0); RED BLOOD COUNT 4.27 10^6/uL (4.30-6.10); WHITE BLOOD COUNT 9.6 10^3/uL (4.0-10.0)
[2020-07-09 06:56] LABS: PLATELET COUNT, AUTOMATED 7 10^3/uL (150-450)
[2020-07-09] MEDS: POTASSIUM CHLORIDE 10 MEQ SR TABLET PO SCH ×3 (09:00→20:55)
[2020-07-09] MEDS: predniSONE 20 MG TAB PO SCH ×2 (09:00→10:03)
[2020-07-09] MEDS: FAMOTIDINE 20 MG TAB PO SCH ×2 (09:00→10:02)
[2020-07-09] MEDS: TAVALISSE PO SCH ×2 (09:00→20:55)
[2020-07-09] MEDS: MAGNESIUM CHLORIDE 64 MG TABCR (SLO MAG) PO SCH ×3 (09:00→20:54)
[2020-07-09] MEDS: bisoproloL fumarate 10 MG TAB PO SCH ×2 (09:00→10:02)
[2020-07-09] MEDS: ALPRAZolam 0.25 MG TAB PO SCH ×3 (09:00→20:55)
[2020-07-09] MEDS: DOCUSATE SODIUM 100 MG CAP PO SCH ×3 (09:00→20:54)
[2020-07-09] MEDS: CETIRIZINE (ZyrTEC) 10 MG TAB PO SCH ×2 (09:00→10:02)
[2020-07-09 09:54] LABS: ALBUMIN 2.2 GM/DL (3.2-5.2); ALT/SGPT 29 U/L (12-78); BILIRUBIN,TOTAL 0.6 MG/DL (0.2-1.0); BLOOD UREA NITROGEN 17 MG/DL (7-18); CALCIUM LEVEL 8.4 MG/DL (8.8-10.2); CARBON DIOXIDE LEVEL 23 MEQ/L (21-32); CHLORIDE LEVEL 109 MEQ/L (98-107); GLOMERULAR FILTRATION RATE > 60.0 (>35); GLUCOSE, FASTING 222 MG/DL (70-100); POTASSIUM SERUM 3.8 MEQ/L (3.5-5.1); SODIUM LEVEL 137 MEQ/L (136-145); TOTAL PROTEIN 6.8 GM/DL (6.4-8.2)
[2020-07-09] MEDS: LEVEMIR (INSULIN DETEMIR) 1 UNITS/0.01ML SC SCH (09:59)
[2020-07-09] MEDS: HumaLOG INSULIN (NovoLOG) PER UNIT SC SCH ×4 (10:00→20:24)
--- NOTE | 2020-07-09 10:53 | REPVR ---
PROCEDURE INFORMATION: Exam: CT Head Without Contrast Exam date and time: 07/09/2020 10:35 AM Age: 80 years old Clinical indication: Altered mental status/memory loss; Additional info: [place] TECHNIQUE: Imaging protocol: Computed tomography of the head without contrast. Radiation optimization: All CT scans at this facility use at least one of these dose optimization techniques: automated exposure control; mA and/or kV adjustment per patient size (includes targeted exams where dose is matched to clinical indication); or iterative reconstruction. Other technique: STROKE PROTOCOL was implemented. COMPARISON: CT Head without contrast 07/08/2020 9:35 AM FINDINGS: Brain: There is moderate to severe small vessel ischemic disease with moderate to severe atrophy. There is no hemorrhage. There is intracranial blood. Ventricles: Normal. No ventriculomegaly. Bones/joints: Unremarkable. No acute fracture. Sinuses: Mild mucous membrane thickening involving the left maxillary sinus. Similar to previous exam.. No fluid levels. Mastoid air cells: Visualized mastoid air cells are well aerated. Soft tissues: There is a focal area of soft tissue swelling posterior right parietal/occipital region the scalp possibly sequelae of trauma this needs clinical correlation. IMPRESSION: 1. Stable examination intracranially. 2. Questionable scalp hematoma right posterior parietal/occipital region. ASSESSMENT: ASPECTS ([place] Stroke Program Early CT Score) is 10. Electronically signed by: Nikolas Blake On 07/09/2020 10:53:50 AM
[2020-07-09] MEDS ORDERED: ISOVUE-370 76% 100ML VIAL As Ordered ONE (11:14)
[2020-07-09 11:28] LABS: ABG PARTIAL PRESSURE CO2 34.4 mmHg (35.0-45.0); ABG PARTIAL PRESSURE O2 84.6 mmHg (75.0-100.0); ABG pH (ARTERIAL) 7.464 UNITS (7.350-7.450)
[2020-07-09 11:29] LABS: ABG BASE EXCESS 0.9 (-2.0-2.0); ABG HCO3 24.1 MEQ/L (22.0-26.0); ABG STANDARD HCO3 25.2 MEQ/L (22.0-26.0); ABG TOTAL CO2 25.2 MEQ/L (23.0-31.0)
--- NOTE | 2020-07-09 11:57 | REPVR ---
PROCEDURE INFORMATION: Exam: CT Angiography Neck With Contrast Exam date and time: 07/09/2020 11:31 AM Age: 80 years old Clinical indication: Other: Stroke TECHNIQUE: Imaging protocol: Computed tomography angiography of the neck with intravenous contrast. 3D rendering (Not supervised by radiologist): MIP and/or 3D reconstructed images were created by the technologist. Radiation optimization: All CT scans at this facility use at least one of these dose optimization techniques: automated exposure control; mA and/or kV adjustment per patient size (includes targeted exams where dose is matched to clinical indication); or iterative reconstruction. Contrast material: ISOVUE 370; Contrast volume: 100 ml; Contrast route: INTRAVENOUS (IV); COMPARISON: MRA CAROTID WITHOUT CONTRAST 06/13/2019 8:21 PM FINDINGS: Right common carotid artery: There is a 50-70% stenosis of the distal right common carotid artery. In the mid common carotid artery there is 30-50% narrowing. Right internal carotid artery: There is a 50-70% stenosis of the proximal right internal carotid artery. Right external carotid artery: There is a 70-99% focal stenosis of the proximal right external carotid artery. Right vertebral artery: There is a possible 50-70% stenosis involving the origin of the right vertebral artery then quickly occludes. Reconstruction approximately the C3/4 level. Left common carotid artery: There is a 50-70% stenosis involving the origin of the left common carotid artery. Left internal carotid artery: There may be a small amount of fluid seen within the left major fissure in the superior aspect. Left external carotid artery: No occlusion or stenosis of the origin. Left vertebral artery: The left vertebral artery is occluded its origin to the level of C5 there reconstitutes. Bones/joints: No acute fracture. Soft tissues: Normal. No significant soft tissue swelling. Other findings: CTA of the head will be discussed on a separate dictation. There are sternal sutures. IMPRESSION: 1. Moderate stenosis involving the distal right common and proximal internal carotid arteries. 2. 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 3. Occlusion of proximal left vertebral artery with reconstitution. REFERENCES: NASCET CRITERIA. The degree of internal carotid artery stenosis is based on NASCET criteria. Normal is no stenosis. Mild is less than 50% stenosis. Moderate is 50-69% stenosis. Severe is 70% to 99% stenosis. Total occlusion is no detectable patent lumen. Electronically signed by: Nikolas Blake On 07/09/2020 11:57:34 AM
--- NOTE | 2020-07-09 12:03 | REPVR ---
PROCEDURE INFORMATION: Exam: CT Angiography Head With Contrast Exam date and time: 07/09/2020 11:31 AM Age: 80 years old Clinical indication: Other: Stroke TECHNIQUE: Imaging protocol: Computed tomography angiography of the head with intravenous contrast. 3D rendering (Not supervised by radiologist): MIP and/or 3D reconstructed images were created by the technologist. Radiation optimization: All CT scans at this facility use at least one of these dose optimization techniques: automated exposure control; mA and/or kV adjustment per patient size (includes targeted exams where dose is matched to clinical indication); or iterative reconstruction. Contrast material: ISOVUE 370; Contrast volume: 100 ml; Contrast route: INTRAVENOUS (IV); COMPARISON: CT Head without contrast 07/09/2020 10:47 AM FINDINGS: ANTERIOR CIRCULATION: Right internal carotid artery: Atherosclerotic disease seen within the right distal internal carotid artery with areas of up to 50-70% stenosis. There may be 1 area of 70-90% stenosis especially image 403/49. Right middle cerebral artery: Unremarkable. No occlusion or significant stenosis. No aneurysm. Right anterior cerebral artery: The A1 segment is hypoplastic. The A2 segment appears normal. Left internal carotid artery: Atherosclerotic disease is noted involving the internal carotid artery on the left distally. There is a least 1 area of suspected 50-70% stenosis. Left middle cerebral artery: Unremarkable. No occlusion or significant stenosis. No aneurysm. Left anterior cerebral artery: Unremarkable. No occlusion or significant stenosis. No aneurysm. POSTERIOR CIRCULATION: Right vertebral artery: Unremarkable. No occlusion or significant stenosis. No aneurysm. Left vertebral artery: Unremarkable. No occlusion or significant stenosis. No aneurysm. Basilar artery: Unremarkable. No occlusion or significant stenosis. No aneurysm. Right posterior cerebral artery: Unremarkable. No occlusion or significant stenosis. No aneurysm. Left posterior cerebral artery: Unremarkable. No occlusion or significant stenosis. No aneurysm. IMPRESSION: The cerebral arteries appear unremarkable. There is atherosclerotic disease of the cavernous portion of the distal internal carotid arteries extending mildly into the supraclinoid portions with moderate stenosis on the left and moderate possibly severe stenosis on the right. Electronically signed by: Nikolas Blake On 07/09/2020 12:03:55 PM
--- NOTE | 2020-07-09 12:41 | REPVR ---
PROCEDURE INFORMATION: Exam: MR Head Without Contrast Exam date and time: 07/09/2020 11:50 AM Age: 80 years old Clinical indication: Other: Stroke; Patient HX: Unresponsive TECHNIQUE: Imaging protocol: MR of the head without contrast. COMPARISON: MRI-Brain without Contrast 06/23/2019 1:09 PM FINDINGS: Brain: There is no extra-axial collection or intra-axial mass. Moderate diffuse volume loss is within the range of normal for patient age. There is increased T2/FLAIR hyperintensity within the periventricular and subcortical white matter, nonspecific but typically small-vessel ischemia in this age group. There is no diffusion restriction. Ventricles: Prominence of the ventricular system is commensurate with volume loss. Bones/joints: Unremarkable. Sinuses: There is mild ethmoid and left maxillary sinus mucosal thickening. Mastoid air cells: Normal as visualized. No mastoid effusion. Orbits: Unremarkable. Soft tissues: Unremarkable. IMPRESSION: No acute intracranial abnormality. Chronic changes. Electronically signed by: Marissa Hidalgo On 07/09/2020 12:42:00 PM
[2020-07-09] MEDS: IMMUNE GLOBULIN 10% 20 GM in IV 1 EA IV SCH (13:24)
[2020-07-09] MEDS: dexameTHASONE 4 MG/ML 1ML VIAL (J1100 PER 1MG) IV SCH (14:09)
[2020-07-09 15:08] LABS: PROTHROMBIN TIME 13.4 SECONDS (11.8-14.0)
--- NOTE | 2020-07-09 15:46 | IPNPDOC ---
Subjective Date Seen The patient was seen on 07/09/20. Subjective Chief Complaint/HPI presumed fall Events since last encounter acute mental status change per and nursing - confirmed change. Stroke alert called. MRI head negative for acute stroke. General: Reports: ROS Unobtainable (change in mental staus) Objective Physical Examination General Exam: Positive: Other (lethargic; eyes open but not responsive) Eye Exam: Positive: PERRLA, Conjunctiva & lids normal ENT Exam: Positive: Atraumatic Neck Exam: Positive: Supple Chest Exam: Positive: Clear to auscultation, Normal air movement Heart Exam: Positive: Rate Normal, Regular Rhythm Telemetry: Positive: Sinus Abdomen Exam: Positive: Normal bowel sounds, Soft Extremity Exam: Positive: Edema (no pitting edema), Normal pulses Skin Exam: Positive: Other skin issue (petechia present) Neuro Exam: Positive: Other (requires repeated stimuli to arouse, aphasic, does not follow commands, no horizontal gaze palsy, no visual loss, normal symmetry, no biateral extremity movement, ataxia - did not understand, no response to sensory assesment, mute speech, ) Psych Exam: Positive: Other (mental status - lethragic; does not follow commands) Assessment /Plan Assessment 1) altered mental status: acute change this a.m. - acute mental status change, woke up with mentation changes. Given acute findings, stroke alert was called. MRI had negative for acute ischemia. CTA neck and head showed significant stenosis but likely chronic in the current setting. Will continue to monitor patient with Nuro checks every four hours. Neurology consulted - EEG ordered. Repeat ua and blood cultures. 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 continue IVIG 3) Sepsis: source complicated UTI - UA suggestive of infection. initial LA elevated, normalized on repeat check. -on rocephin, continue -repeat LA ordered 4) Hx of dementia - home Meds held as patient is NPO until mentation improves 5) Hx of insulin dependent DM-II -continue insulin regimen with SS Plan/VTE VTE Prophylaxis Ordered?: No VTE Exclusion Pharmacological: Thrombocytopenia Plan Diet: Make NPO Medications: Change to IV VS, I&O, 24H, Fishbone Vital Signs/I&O Vital Signs Date Time Temp Pulse Resp B/P (MAP) Pulse Ox O2 Delivery O2 Flow Rate FiO2 07/09/20 12:00 97.9 60 18 117/59 (78) 97 Room Air I&O- Last 24 Hours up to 6 AM 07/09/20 06:00 Intake Total 1200 ml Output Total 1200 ml Balance 0 ml Laboratory Data 24H LABS Laboratory Tests 2 07/09/20 06:10: Nucleated Red Blood Cells % (auto) 0.0 07/09/20 07:46: Anion Gap 5L, Glomerular Filtration Rate > 60.0, Calcium Level 8.4L, Total Bilirubin 0.6, Aspartate Amino Transf (AST/SGOT) 55H, Alanine Aminotransferase (ALT/SGPT) 29, Alkaline Phosphatase 105, Total Protein 6.8, Albumin 2.2#L, Albumin/Globulin Ratio 0.5 07/09/20 11:14: Blood Gas Bicarbonate Standard 25.2, Arterial Blood pH 7.464H, Arterial Blood Partial Pressure CO2 34.4L, Arterial Blood Partial Pressure O2 84.6, Arterial Blood Total CO2 25.2, Arterial Blood HCO3 24.1, Arterial Blood Base Excess 0.9, Arterial Blood Oxygen Saturation 97.0 07/09/20 14:30: Prothrombin Time 13.4, Prothromb Time International Ratio 1.00 CBC/BMP Laboratory Tests 07/09/20 06:10 07/09/20 07:46 Microbiology Microbiology 07/08/20 Blood Culture - Preliminary, Resulted No growth after 24 hours . All specim... 07/08/20 Blood Culture - Preliminary, Resulted No growth after 24 hours . All specim... 07/08/20 Urine Culture, Received Pending PERFECTO RODRIGUEZ DO Jul 09, 2020 15:46
[2020-07-09 15:50] LABS: CREATININE FOR GFR 0.88 MG/DL (0.70-1.30); GLOMERULAR FILTRATION RATE > 60.0 (>35)
[2020-07-09] MEDS: IMMUNE GLOBULIN 10% 10 GM in IV 1 EA IV SCH (16:09)
[2020-07-09] MEDS: cefTRIAXone SOD 1 GM in D5W MINI-BAG PLUS 50 ML IV SCH (17:51)
[2020-07-09] MEDS: IMMUNE GLOBULIN 10% 5 GM in IV 1 EA IV SCH (17:51)
[2020-07-09] MEDS: levETIRAcetam 250MG TABLET (KEPPRA) PO SCH (20:55)
[2020-07-09] MEDS: PRAVASTATIN 20 MG TAB PO SCH (20:55)
[2020-07-09] MEDS: PANTOPRAZOLE 40MG TAB (PROTONIX) PO SCH (20:55)
[2020-07-09] MEDS: risperiDONE 0.5 MG TAB PO SCH (20:56)
[2020-07-10] VITALS (12 sets, daily range): BP systolic 111–150; BP diastolic 56–68
[2020-07-10 05:25] LABS: ALT/SGPT 26 U/L (12-78); BILIRUBIN,TOTAL 0.3 MG/DL (0.2-1.0); BLOOD UREA NITROGEN 19 MG/DL (7-18); CALCIUM LEVEL 8.2 MG/DL (8.8-10.2); CARBON DIOXIDE LEVEL 24 MEQ/L (21-32); CHLORIDE LEVEL 113 MEQ/L (98-107); CREATININE FOR GFR 0.79 MG/DL (0.70-1.30); GLOMERULAR FILTRATION RATE > 60.0 (>35); GLUCOSE, FASTING 146 MG/DL (70-100); POTASSIUM SERUM 3.5 MEQ/L (3.5-5.1); SODIUM LEVEL 137 MEQ/L (136-145); TOTAL PROTEIN 6.8 GM/DL (6.4-8.2)
[2020-07-10] MEDS: HumaLOG INSULIN (NovoLOG) PER UNIT SC SCH ×4 (08:38→21:44)
[2020-07-10] MEDS: LEVEMIR (INSULIN DETEMIR) 1 UNITS/0.01ML SC SCH (08:39)
[2020-07-10] MEDS: CETIRIZINE (ZyrTEC) 10 MG TAB PO SCH (08:39)
[2020-07-10] MEDS: FAMOTIDINE 20 MG TAB PO SCH (08:39)
[2020-07-10] MEDS: POTASSIUM CHLORIDE 10 MEQ SR TABLET PO SCH ×2 (08:40→21:45)
[2020-07-10] MEDS: dexameTHASONE 4 MG/ML 1ML VIAL (J1100 PER 1MG) IV SCH (08:40)
[2020-07-10] MEDS: DOCUSATE SODIUM 100 MG CAP PO SCH ×2 (08:40→21:45)
[2020-07-10] MEDS: MAGNESIUM CHLORIDE 64 MG TABCR (SLO MAG) PO SCH ×2 (08:41→21:44)
[2020-07-10] MEDS: TAVALISSE PO SCH ×2 (08:41→21:44)
[2020-07-10] MEDS: bisoproloL fumarate 10 MG TAB PO SCH (08:43)
[2020-07-10 09:09] LABS: HEMATOCRIT 32.9 % (42.0-52.0); LYMPH # 0.8 10^3/uL (1.5-5.0); LYMPH % 12.8 % (24.0-44.0); MEAN CORPUSCULAR HEMOGLOBIN 28.4 pg (27.0-33.0); MEAN CORPUSCULAR HGB CONC 33.4 g/dl (32.0-36.5); MEAN CORPUSCULAR VOLUME 84.8 fl (80.0-96.0); MONO # 0.4 10^3/uL (0.0-0.8); MONO % 5.4 % (0.0-5.0); NEUTROPHILS # 5.3 10^3/uL (1.5-8.5); NEUTROPHILS % 81.5 % (36.0-66.0); RED BLOOD COUNT 3.88 10^6/uL (4.30-6.10); WHITE BLOOD COUNT 6.5 10^3/uL (4.0-10.0)
[2020-07-10 09:10] LABS: PLATELET COUNT, AUTOMATED 29 10^3/uL (150-450)
[2020-07-10] MEDS: IMMUNE GLOBULIN 10% 5 GM in IV 1 EA IV SCH (12:15)
[2020-07-10] MEDS: IMMUNE GLOBULIN 10% 10 GM in IV 1 EA IV SCH (13:30)
[2020-07-10] MEDS: SLF 3 ML SYR IV SCH ×2 (14:00→21:46)
--- NOTE | 2020-07-10 14:15 | IPNPDOC ---
Subjective Date Seen The patient was seen on 07/10/20. Subjective Chief Complaint/HPI AMS Events since last encounter significant improvement in mental status General: Reports: Normal Appetite; Denies: Chills, Night Sweats, Fatigue, Malaise Constitutional: Denies: Chills, Fever, Night Sweats Eyes: Denies: Pain, Vision change Pulmonary: Denies: Dyspnea, Cough Cardiovascular: Denies: Chest Pain, Palpitations, Orthopnea, Paroxysmal Noc. Dyspnea, Lt Headedness Gastrointestinal: Denies: Nausea, Vomiting, Abdominal Pain, Diarrhea, Constipation Hematologic: Reports: Petecchia Musculoskeletal: Denies: Neck Pain, Back Pain, Joint Pain, Muscle Pain, Spasms Neurological: Denies: Weakness, Numbness, Change in speech, Confusion Objective Physical Examination General Exam: Positive: Other (lethargic; eyes open but not responsive) Eye Exam: Positive: PERRLA, Conjunctiva & lids normal ENT Exam: Positive: Atraumatic Neck Exam: Positive: Supple Chest Exam: Positive: Clear to auscultation, Normal air movement Heart Exam: Positive: Rate Normal, Regular Rhythm Telemetry: Positive: Sinus Abdomen Exam: Positive: Normal bowel sounds, Soft Extremity Exam: Positive: Edema (no pitting edema), Normal pulses Skin Exam: Positive: Other skin issue (petechia present) Neuro Exam: Positive: Other (imrpved mentation - responsive) Psych Exam: Positive: Other (improved mentation from yesterday) Assessment /Plan Assessment 1) altered mental status: imprved from yesterday -likely delirium induced. 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 will stop IVIG tomorrow and discharge with prednisone taper 3) Sepsis: source complicated UTI - urine cultures reviewed. antibiotic switched to Keflex 500mg TID 4) Hx of dementia - home meds resumed 5) Hx of insulin dependent DM-II -continue insulin regimen with SS Plan/VTE VTE Prophylaxis Ordered?: No VTE Exclusion Pharmacological: Thrombocytopenia Plan Diet: Make NPO Therapy: PT, OT, Home Safety Eval Pt and Family Services: Home Care, Insurance / Financial Medications: Change to IV Anticipated Discharge: Home With Services Disposition discharge tomorrow likely VS, I&O, 24H, Fishbone Vital Signs/I&O Vital Signs Date Time Temp Pulse Resp B/P (MAP) Pulse Ox O2 Delivery O2 Flow Rate FiO2 8/21/20 13:30 97.2 59 18 123/57 (79) 96 Room Air I&O- Last 24 Hours up to 6 AM 07/10/20 05:59 Intake Total 50 ml Output Total 1650 ml Balance -1600 ml Laboratory Data 24H LABS Laboratory Tests 2 07/09/20 14:30: Prothrombin Time 13.4, Prothromb Time International Ratio 1.00, Glomerular Filtration Rate > 60.0, Lactic Acid Level 1.9 07/10/20 04:35: Glomerular Filtration Rate > 60.0, Anion Gap 0L, Calcium Level 8.2L, Total Bilirubin 0.3, Aspartate Amino Transf (AST/SGOT) 34, Alanine Aminotransferase (ALT/SGPT) 26, Alkaline Phosphatase 89, Total Protein 6.8, Albumin 2.0L, Albumin/Globulin Ratio 0.4 07/10/20 08:33: Immature Granulocyte % (Auto) 0.3, Neutrophils (%) (Auto) 81.5H, Lymphocytes (%) (Auto) 12.8L, Monocytes (%) (Auto) 5.4H, Eosinophils (%) (Auto) 0.0, Basophils (%) (Auto) 0.0, Neutrophils # (Auto) 5.3, Lymphocytes # (Auto) 0.8L, Monocytes # (Auto) 0.4, Eosinophils # (Auto) 0.0, Basophils # (Auto) 0.0, Nucleated Red Blood Cells % (auto) 0.0, Immature Platelet Fraction 13.5H CBC/BMP Laboratory Tests 07/09/20 14:30 07/10/20 04:35 07/10/20 08:33 Microbiology Microbiology 07/08/20 Blood Culture - Preliminary, Resulted No Growth after 48 hours. All Specime... 07/08/20 Blood Culture - Preliminary, Resulted No Growth after 48 hours. All Specime... 07/08/20 Urine Culture - Final, Complete Proteus Mirabilis PERFECTO RODRIGUEZ DO Jul 10, 2020 14:15
[2020-07-10] MEDS: CEPHALEXIN 500 MG CAP PO SCH ×3 (14:30→21:45)
[2020-07-10] MEDS: IMMUNE GLOBULIN 10% 20 GM in IV 1 EA IV SCH (14:33)
[2020-07-10] MEDS ORDERED: SLF 3 ML SYR IV PRN (16:00)
[2020-07-10] MEDS: PANTOPRAZOLE 40MG TAB (PROTONIX) PO SCH (21:45)
[2020-07-10] MEDS: levETIRAcetam 250MG TABLET (KEPPRA) PO SCH (21:45)
[2020-07-10] MEDS: risperiDONE 0.5 MG TAB PO SCH (21:45)
[2020-07-10] MEDS: PRAVASTATIN 20 MG TAB PO SCH (21:45)
[2020-07-11] VITALS: BP 129/58
[2020-07-11 04:00] VITALS: BP 160/90
[2020-07-11] MEDS: SLF 3 ML SYR IV SCH ×2 (05:03→12:53)
[2020-07-11 07:57] VITALS: BP 161/73
[2020-07-11] MEDS: HumaLOG INSULIN (NovoLOG) PER UNIT SC SCH ×2 (09:37→12:53)
[2020-07-11] MEDS: dexameTHASONE 4 MG/ML 1ML VIAL (J1100 PER 1MG) IV SCH (09:38)
[2020-07-11] MEDS: LEVEMIR (INSULIN DETEMIR) 1 UNITS/0.01ML SC SCH (09:38)
[2020-07-11] MEDS: CETIRIZINE (ZyrTEC) 10 MG TAB PO SCH (09:40)
[2020-07-11] MEDS: DOCUSATE SODIUM 100 MG CAP PO SCH (09:41)
[2020-07-11] MEDS: FAMOTIDINE 20 MG TAB PO SCH (09:41)
[2020-07-11] MEDS: POTASSIUM CHLORIDE 10 MEQ SR TABLET PO SCH (09:41)
[2020-07-11 09:42] VITALS: BP 161/73
[2020-07-11] MEDS: TAVALISSE PO SCH (09:42)
[2020-07-11] MEDS: MAGNESIUM CHLORIDE 64 MG TABCR (SLO MAG) PO SCH (09:42)
[2020-07-11] MEDS: CEPHALEXIN 500 MG CAP PO SCH ×2 (09:42→12:53)
[2020-07-11] MEDS: bisoproloL fumarate 10 MG TAB PO SCH (09:42)
[2020-07-11 09:48] LABS: BASO % 0.2 % (0.0-1.0); HEMATOCRIT 35.1 % (42.0-52.0); HEMOGLOBIN 11.4 g/dl (13.5-17.5); LYMPH # 0.7 10^3/uL (1.5-5.0); LYMPH % 11.4 % (24.0-44.0); MEAN CORPUSCULAR HEMOGLOBIN 28.2 pg (27.0-33.0); MEAN CORPUSCULAR HGB CONC 32.5 g/dl (32.0-36.5); MEAN CORPUSCULAR VOLUME 86.9 fl (80.0-96.0); MONO # 0.4 10^3/uL (0.0-0.8); MONO % 6.8 % (0.0-5.0); NEUTROPHILS # 5.2 10^3/uL (1.5-8.5); NEUTROPHILS % 81.3 % (36.0-66.0); RED BLOOD COUNT 4.04 10^6/uL (4.30-6.10); WHITE BLOOD COUNT 6.3 10^3/uL (4.0-10.0)
[2020-07-11 10:08] LABS: PLATELET COUNT, AUTOMATED 45 10^3/uL (150-450)
[2020-07-11 10:30] LABS: ALT/SGPT 38 U/L (12-78); BILIRUBIN,TOTAL 0.3 MG/DL (0.2-1.0); BLOOD UREA NITROGEN 23 MG/DL (7-18); CALCIUM LEVEL 8.5 MG/DL (8.8-10.2); CARBON DIOXIDE LEVEL 24 MEQ/L (21-32); CHLORIDE LEVEL 115 MEQ/L (98-107); CREATININE FOR GFR 0.94 MG/DL (0.70-1.30); GLOMERULAR FILTRATION RATE > 60.0 (>35); GLUCOSE, FASTING 194 MG/DL (70-100); POTASSIUM SERUM 3.6 MEQ/L (3.5-5.1); SODIUM LEVEL 140 MEQ/L (136-145); TOTAL PROTEIN 7.1 GM/DL (6.4-8.2)
[2020-07-11] MEDS ORDERED: PRED20TA PO (10:49)
[2020-07-11] MEDS ORDERED: CEPH500C PO (10:49)
[2020-07-11 12:00] VITALS: BP 169/75
[2020-07-11] MEDS: IMMUNE GLOBULIN 10% 20 GM in IV 1 EA IV SCH (12:00)
[2020-07-11] MEDS: IMMUNE GLOBULIN 10% 5 GM in IV 1 EA IV SCH (12:00)
[2020-07-11] MEDS: IMMUNE GLOBULIN 10% 10 GM in IV 1 EA IV SCH (12:00)
--- NOTE | 2020-07-21 10:11 | CR ---
DATE: 07/10/2020 REQUESTING PHYSICIAN: Dr. Umanzor REASON FOR CONSULTATION: Altered mental status. HISTORY OF PRESENT ILLNESS: The patient is an 80-year-old man with history of colon cancer and history of ITP, who presented to [facility] after found by his daughter on the floor beside his armed chair. The patient had bruises of his forehead and left arm. The patient also has a history of dementia. The patient was treated with prednisone and intravenous immunoglobulin for his ITP. His platelet count was 1000 and increased to 7000. The patient went to sleep last night in the hospital and was at his baseline state of health and he was difficult to arouse this morning. The patient was found to have altered mental status and comatose. He did not follow any commands. He did not wake up to verbal painful stimuli or sternal rub. I was called by Dr. Umanzor due to patients unresponsiveness. She assessed that patients NIH stroke scale was 25. I explained that it will be difficult to assess NIH stroke scale on a patient who is unresponsive. Stroke protocol was initiated. CT scan of the head was unremarkable on a stat basis. CT angiogram of head and neck showed moderate bilateral common carotid artery stenosis and occlusion of bilateral vertebral arteries and intracranial atherosclerosis of bilateral internal carotid arteries. The patient is DO NOT RESUSCITATE AND DO NOT INTUBATE status. The patient had MRI scan of the brain, which ruled out any acute disease. This showed extensive small vessel ischemic disease of the brain. His urinalysis showed 3+ bacteria and 3+ leukocyte esterase with normal metabolic profile. Platelet count increased from 1000 to 7000. PAST MEDICAL HISTORY: Dyslipidemia, ITP, hypertension, dementia, aortic valve replacement, coronary artery disease, status post stent. HOME MEDICATIONS: - Xanax 0.25 mg p.o. b.i.d. - bisoprolol 10 mg p.o. daily - cetirizine 10 mg p.o. daily - Pepcid 40 mg p.o. daily - Tavalisse 150 mg p.o. b.i.d. - insulin Lantus 26 units subcutaneously daily - Keppra 250 plus 500 mg daily - melatonin 10 mg p.o. at bedtime - Protonix 40 mg p.o. daily - potassium chloride 10 mEq p.o. b.i.d. - pravastatin 20 mg p.o. daily - risperidone 1 mg p.o. at bedtime - Vicodin 5/325 mg p.o. q. 6 hours p.r.n. ALLERGIES: PENICILLIN, PROCAINE. SOCIAL HISTORY: He smokes less than one pack per day. No alcohol or illicit drugs. Social history was obtained from electronic medical records. Patient is unable to provide any history. FAMILY HISTORY: Non-contributory. REVIEW OF SYSTEMS: Could not be obtained due to patients altered mental status. PHYSICAL EXAMINATION: VITAL SIGNS: Temperature 97.8, pulse 78, respiratory rate 18, blood pressure 135/62. HEART: Regular rate and rhythm. LUNGS: Clear to auscultation. ABDOMEN: Soft, nontender, and nondistended. EXTREMITIES: No pedal edema. MUSCULOSKELETAL: No abnormalities. No rash. No signs of meningeal irritation. NEUROLOGIC: Patient is drowsy, open his eyes. Looks at me, but does not respond to verbal stimuli. He responds periodically to nurses request. Speech could not be assessed. Memory could not be assessed. Patient lifted both of his hands to verbal stimuli periodically. He was able to wiggle his toes bilaterally and legs. He lifted both his arms simultaneously against gravity. Sensory and cerebellar testing could not be performed. Gait could not be tested. ASSESSMENT: Stupor and altered mental status likely metabolic and infectious encephalopathy. Urinary tract infection. ITP/idiopathic thrombocytopenic purpura. 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 PLAN: EEG. Ceftriaxone 1 gram q. 24 hours. Avoid aspirin and Plavix. MTDD
--- NOTE | 2020-07-29 14:17 | ECGEPIP ---
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
--- NOTE | 2020-08-24 14:50 | EEG ---
DATE: 07/10/2020 DIAGNOSIS: Altered mental status. EEG# [id number]. REFERRING PHYSICIAN: Noé HISTORY: Patient is an 80-year-old man who was admitted at [facility] due to ITP, urinary tract infection, and altered mental status. This EEG was done to rule out encephalopathy and seizures. He is currently on ceftriaxone, prednisone, Xanax, Pepcid, Keppra, bisoprolol, intravenous immunoglobulin, risperidone, pravastatin, Protonix, melatonin, Vicodin. TECHNICAL DESCRIPTION: This baseline EEG was recorded by 21-scalp, ear, and two EKG electrodes and was reviewed in bipolar and referential montages following reformatting in 10-20 international electrode placement system. INTERPRETATION: Patient was noted to be in awake and drowsy states during this EEG. Resting and awake background rhythm consisted of well-formed posterior dominant rhythm with anterior-posterior gradient comprising of 7 Hz alpha activity measuring 15-40 microvolts in amplitude, which was symmetric bilaterally. Hypoventilation could not be performed. No sleep was achieved. Photic stimulation remained unremarkable. EKG revealed normal sinus rhythm with PACs. No focal, lateralizing, or epileptiform abnormalities were seen. No relevant clinical activity was noted. CONCLUSION: This EEG in awake and drowsy states is abnormal due to the presence of mild generalized snoring consistent with mild nonspecific diffuse cerebellar dysfunction suggesting encephalopathy due to multiple potential causes including toxic, metabolic, infectious,B medication related, and structural brain abnormality. No epileptiform abnormalities were seen. Clinical correlation is recommended. MTDD
== END 2020-07-11 14:10 | disposition home health service (06) | DRG 813 ==
LOC: M ED 08:35 → M ED INP 13:05 → M PCU 16:18
PROVIDERS: ADMIT Internal Medicine; ATTEND Internal Medicine
PROC: 30233R1 Transfusion of Nonautologous Platelets into Peripheral Vein, Percutaneous Approach (ICD-10-PCS; principal; 2020-07-08)
DX: D69.3 Immune thrombocytopenic purpura (principal); A41.9 Sepsis, unspecified organism; N39.0 Urinary tract infection, site not specified; Z79.899 Other long term (current) drug therapy; Z79.4 Long term (current) use of insulin; Z88.0 Allergy status to penicillin; Z88.8 Allergy status to other drugs, medicaments and biological substances; Z95.2 Presence of prosthetic heart valve; F17.200 Nicotine dependence, unspecified, uncomplicated; F03.90 Unspecified dementia, unspecified severity, without behavioral disturbance, psychotic disturbance, mood disturbance, and anxiety; E11.9 Type 2 diabetes mellitus without complications; I25.10 Atherosclerotic heart disease of native coronary artery without angina pectoris; K21.9 Gastro-esophageal reflux disease without esophagitis; I50.9 Heart failure, unspecified; Z85.038 Personal history of other malignant neoplasm of large intestine; Z66 Do not resuscitate; E78.5 Hyperlipidemia, unspecified

== ENCOUNTER → 2020-08-06 | Outpatient (REF) | payer MEDICARE ==
[~2020-08-06] MED LIST changes: +ALPR0.25 PO; +CEPH500C PO; +CETI-24 PO; +CVS10CAP7 PO; +DEXA4TA PO; +K-TA10TA PO; +MM S100C PO; +PEPC40TA12 PO; +PRED20TA PO; +VOLT1GEL15 TOP
[2020-08-06 18:21] LABS: APPEARANCE, URINE CLEAR (CLEAR); BACTERIA, URINE AUTO NEGATIVE (NEGATIVE); BILIRUBIN, URINE AUTO NEGATIVE (NEGATIVE); BLOOD, URINE BLOOD 2+ (NEGATIVE); COLOR, URINE YELLOW (YELLOW); GLUCOSE, URINE (UA) AUTO NEGATIVE (NEGATIVE); KETONE, URINE AUTO NEGATIVE (NEGATIVE); LEUKOCYTE ESTERASE, URINE AUTO TRACE (NEGATIVE); MUCUS, URINE SMALL (NEGATIVE); NITRITE, URINE AUTO NEGATIVE (NEGATIVE); PROTEIN, URINE AUTO NEGATIVE (NEGATIVE); RBC, URINE AUTO 33 /HPF (0-3); SPECIFIC GRAVITY URINE AUTO 1.008 (1.002-1.035); SQUAMOUS EPITHELIAL CELL UR AU 0 /HPF (0-6); UROBILINOGEN, URINE AUTO 0.2 mg/dL (0.0-2.0); WBC, URINE AUTO 12 /HPF (0-3)
== END ==
LOC: M SMT 16:55
PROVIDERS: ATTEND Urology
DX: N39.0 Urinary tract infection, site not specified (principal)

== ENCOUNTER → 2020-08-27 | Outpatient (REF) | payer MEDICARE ==
[~2020-08-27] MED LIST changes: -DEXA4TA PO
== END ==
LOC: M SFHCADAM 14:29
PROVIDERS: ATTEND Family Medicine
DX: N30.01 Acute cystitis with hematuria (principal)

== ENCOUNTER → 2020-09-02 | Outpatient (REF) | payer MEDICARE, MEDICAID ==
[~2020-09-02] MED LIST changes: +DEXA4TA PO
== END ==
LOC: M SFHCCLAY 15:12
PROVIDERS: ATTEND Family Medicine
DX: R31.0 Gross hematuria (principal)
CPT/HCPCS: 87086; G0463

== ENCOUNTER 2020-09-17 14:11 | Inpatient (IN) | payer MEDICARE, MEDICAID ==
[~2020-09-17] VITALS: Ht 175.3 cm; Wt 94.6 kg
[2020-09-17] VITALS (7 sets, daily range): BP systolic 117–144; BP diastolic 44–86
[~2020-09-17 14:11] MED LIST changes: -DEXA4TA PO; -VOLT1GEL15 TOP
[2020-09-17 14:52] LABS: BASO % 0.5 % (0.0-1.0); EOS # 0.1 10^3/uL (0.0-0.5); EOS % 1.3 % (0.0-3.0); LYMPH # 1.7 10^3/uL (1.5-5.0); LYMPH % 22.2 % (24.0-44.0); MEAN CORPUSCULAR HEMOGLOBIN 30.8 pg (27.0-33.0); MEAN CORPUSCULAR HGB CONC 31.3 g/dl (32.0-36.5); MEAN CORPUSCULAR VOLUME 98.5 fl (80.0-96.0); MONO # 0.6 10^3/uL (0.0-0.8); MONO % 7.7 % (0.0-5.0); NEUTROPHILS % 66.7 % (36.0-66.0); RED BLOOD COUNT 1.98 10^6/uL (4.30-6.10); WHITE BLOOD COUNT 7.5 10^3/uL (4.0-10.0)
[2020-09-17 14:55] LABS: HEMATOCRIT 19.5 % (42.0-52.0)
[2020-09-17 14:57] LABS: PLATELET COUNT, AUTOMATED 1 10^3/uL (150-450)
[2020-09-17 14:58] LABS: HEMOGLOBIN 6.1 g/dl (13.5-17.5)
--- NOTE | 2020-09-17 14:58 | REP ---
INDICATION: CHEST PAIN. COMPARISON: July 08, 2020.. TECHNIQUE: Sitting AP view. FINDINGS: Patient is status post prior median sternotomy. Heart is mildly enlarged unchanged. The lungs are symmetrically aerated and clear. Pleural angles are sharp. No infiltrate is seen. Pulmonary vasculature is not increased. IMPRESSION: No active disease. <Electronically signed by Aditya Delacruz > 09/17/20 [id number]
[2020-09-17 15:09] LABS: INR 1.02; PROTHROMBIN TIME 13.6 SECONDS (12.5-14.3)
[2020-09-17 15:25] LABS: ALBUMIN 2.7 GM/DL (3.2-5.2); ALT/SGPT 11 U/L (12-78); BILIRUBIN,DIRECT 0.1 MG/DL (0.0-0.2); BILIRUBIN,TOTAL 0.4 MG/DL (0.2-1.0); BLOOD UREA NITROGEN 27 MG/DL (7-18); CALCIUM LEVEL 8.6 MG/DL (8.8-10.2); CARBON DIOXIDE LEVEL 25 MEQ/L (21-32); CHLORIDE LEVEL 110 MEQ/L (98-107); CK-MB VALUE MASS 1.9 NG/ML (<3.6); CPK CREATINE PHOSPHOKINASE 51 U/L (39-308); CREATININE FOR GFR 0.94 MG/DL (0.70-1.30); FREE T4 0.96 NG/DL (0.76-1.46); GLOMERULAR FILTRATION RATE > 60.0 (>35); GLUCOSE, FASTING 162 MG/DL (70-100); LIPASE 100 U/L (73-393); MB/CK RELATIVE INDEX 3.73 (< OR =4); NT-PRO BNP 1354 PG/ML (<450); POTASSIUM SERUM 3.6 MEQ/L (3.5-5.1); SODIUM LEVEL 143 MEQ/L (136-145); TOTAL PROTEIN 5.7 GM/DL (6.4-8.2); TROPONIN I < 0.02 NG/ML (< 0.10)
[2020-09-17] MEDS ORDERED: LEVE250T5 PO (16:14)
[2020-09-17] MEDS ORDERED: VOLT1GEL15 TOP (16:15)
--- NOTE | 2020-09-17 17:37 | HPEPDOC ---
[facility] Medical History & Physical Date of Admission Sep 17, 2020 Date of Service: Sep 17, 2020 History and Physical CHIEF COMPLAINT: generalized weakness HISTORY OF PRESENT ILLNESS: 80 M with a hx of dementia, ITP, CAD s/p stenting, DM2, colon ca s/p resection/chemo, presents to [facility] ER with a 2 day hx of progressively worsening generalized weakness. He is a poor historian. He follows with oncology at [facility], last seen in 07/2020. He gets frequent IVIG infusions. On arrival, vitals stable. Hgb 6.1. Hct 19.5. PLT 1 (EDTA-free: 1). She denies chest pain, shortness of breath or any gross bleeding. Discussed with Dr. Alfred ibrahim, who sees the patient in clinic, recommend starting pulse of dexamethasone 40 mg by mouth 4 days as well as IVIG infusion of 1 g/kg for 2 days. Last colonoscopy 06/[address] Ruvalcaba, when 2 cm mass was bx (adenoca), along with numerous polyps. patient underwent extended R hemicolectomy in 07/2018. PAST MEDICAL HISTORY: ITP Aortic valve replacement CAD s/p stenting Colon cancer Dementia DM2 PAST SURGICAL HISTORY: bowl resection - stage 1 colon cancer cardiac stent Aortic Valve replacement SOCIAL HISTORY: Smokes less than 1 pack per day Patient denies etoh use Patient denies illicit drug use FAMILY HISTORY: Patient denies contributing history, no prior records available ALLERGIES: Please see below. REVIEW OF SYSTEMS: CONSTITUTIONAL: Generalized weakness HEENT: patient denies blurred vision, loss of vision, headache,. CARDIOVASCULAR: patient denies chest pain, palpitations. RESPIRATORY: patient denies shortness of breath, cough, hemoptysis. GASTROINTESTINAL: patient denies abdominal pain, n/v/d, blood in stool. GENITOURINARY: patient denies dysuria, discharge. MUSCULOSKELETAL: patient denies joint pain, neck pain. NEUROLOGICAL: patient denies focal weakness, numbness, seizures. PSYCHIATRIC: patient denies SI/HI. ENDOCRINE: patient denies polyuria, heat intolerance, cold intolerance. HEMATOLOGIC/LYMPHATIC: Patient reports easy bruising HOME MEDICATIONS: Please see below. PHYSICAL EXAMINATION: VITAL SIGNS: please see below General: NAD, comfortable HEENT: PERRLA, EOMI, sclerae clear Neck: supple, normal ROM, no JVD Respiratory: lungs CTAB, no wheeze, no rales, no crackles CVS: RRR, normal S1, S2, no murmurs Abdo: soft, no masses, no hepatosplenomegaly, BS+, no rebound tenderness. Large midline laparotomy, large midline thoracotomy scar Extremities: biateral LE swelling, non pitting edema, chronic venous stasis changes. MSK: no joint deformities, normal ROM Neuro: no focal neuro deficits, moving all 4 extremities, CN2-12 intact. Strength 5/5 in all 4 extremities. No nystagmus. Psych: calm, cooperative, AAO x 3 LABORATORY DATA: See below. IMAGING: CXR 09/17/20: No active disease MICROBIOLOGY: Please see below. ASSESSMENT: 80-year-old male with a history of dementia, DM2, ITP, coronary artery disease status post stenting, colon cancer status post resection and chemotherapy, presenting with a generalized weakness, worsening for the past 2 days, found to be anemic of 8 with hemoglobin of 6.1 as well as thrombocytopenic with plan with count of 1. Discussed with oncology, Dr. Quiroz on consult. Recommended starting dexamethasone 40 mg by mouth for 4 days as well as IVIG infusion. Transfuse pRBC and PLT. PLAN: #acute on chronic ITP: Hgb 6.1. PLT (EDTA-free) 1. Hematology consult. Dw Dr. Quiroz. Transfusing 2 units pRBC. 1 pack PLT. Maintain Hgb > 7. Prednisone pulse 40 mg PO daily for 4 days. IVIG 1 g/kg for 2 days. Monitor CBC. Monitor for bleeding. Per records review, patient has failed multiple courses of steroids and IVIG. Romiplostim per heme. #anemia: Hgb 6.1. no hx of melena, no hematuria. check FOBT. check ferritin. #DM2: ISS, FSBS AC & HS, hypoglycemic precautions. Check a1c. Trend h/h q8h.hh #Dementia: continue home meds. Melatonin (Rozeram while inpt) Risperidone. #B12 deficiency: receives month B12 injections with hematology clinic #HTN: bisoprolol 10 mg PO daily #Seizure disorder: continue keppra #Intertrigo: below abdominal and inguinal fold. Nystatin powder. #BLE: suspect chronic venous insufficiency. Elevated BLE. Medigrip stocking. Bilateral venous dupplex. #Elevated BNP: last echo 06/2019. LVEF 70%. G1DD. Small pericardial effusion. AVR. Does not appear fluid overloaded. CXR clear. Trial low dose lasix 20 mg PO for LE edema, although is suspect it is mostly venous insufficiency related. #urinary retention: indwelling solis, follows with Dr. Torres, no suspicion for UTI (hx of UTIs in past) Dispo: spoke with , Charline Samano ([phone]), she provides 24/7 care. Anxious for patient to return home. PT for HSE given weakness. DVT PPX: TEDs, SCDs. Avoid chemo ppx due to acute ITP. Vital Signs Vital Signs Date Time Temp Pulse Resp B/P (MAP) Pulse Ox O2 Delivery O2 Flow Rate FiO2 09/17/20 16:45 98.1 65 18 119/62 (81) 99 Room Air Laboratory Data Labs 24H Laboratory Tests 2 09/17/20 14:36: Immature Granulocyte % (Auto) 1.6, Neutrophils (%) (Auto) 66.7H, Lymphocytes (%) (Auto) 22.2L, Monocytes (%) (Auto) 7.7H, Eosinophils (%) (Auto) 1.3, Basophils (%) (Auto) 0.5, Neutrophils # (Auto) 5.0, Lymphocytes # (Auto) 1.7, Monocytes # (Auto) 0.6, Eosinophils # (Auto) 0.1, Basophils # (Auto) 0.0, Nucleated Red Blood Cells % (auto) 1.1H, Prothrombin Time 13.6, Prothromb Time International Ratio 1.02, Activated Partial Thromboplast Time 26.0 09/17/20 14:38: Anion Gap 8, Glomerular Filtration Rate > 60.0, Calcium Level 8.6L, Total Bilirubin 0.4, Direct Bilirubin 0.1, Aspartate Amino Transf (AST/SGOT) 11, Alanine Aminotransferase (ALT/SGPT) 11L, Alkaline Phosphatase 88, Total Creatine Kinase 51, Creatine Kinase MB 1.9, Creatine Kinase MB Relative Index 3.73, Tr oponin I < 0.02, TA-Qji-[id number]-Type Natriuretic Peptide 1354H, Total Protein 5.7L, Albumin 2.7L, Albumin/Globulin Ratio 0.9, Lipase 100, Thyroid Stimulating Hormone (TSH) 1.630, Free Thyroxine 0.96 CBC/BMP Laboratory Tests 09/17/20 14:36 09/17/20 14:38 Home Medications Scheduled Alprazolam (Alprazolam) 0.25 Mg Tablet, 0.25 MG PO BID Bisoprolol Fumarate (Bisoprolol Fumarate) 10 Mg Tablet, 10 MG PO DAILY Cetirizine HCl (Cetirizine HCl) 10 Mg Tablet, 10 MG PO DAILY Dexamethasone (Dexamethasone) 4 Mg Tablet, 40 TAB PO ONCE Docusate Sodium (Stool Softener) 100 Mg Capsule, 100 MG PO BID Insulin Glargine,Hum.rec.anlog (Lantus Solostar) 100 Unit/1 Ml Insuln.pen, 26 UNITS SC DAILY Levetiracetam (Keppra) 250 Mg Tablet, 250 MG PO QAM Levetiracetam (Levetiracetam) 250 Mg Tablet, 500 MG PO QHS Magnesium Chloride (Mag64) 64 Mg Tablet.dr, 64 MG PO DAILY Melatonin (Melatonin) 10 Mg Capsule, 10 MG PO QHS Pantoprazole Sodium (Pantoprazole Sodium) 40 Mg Tablet.dr, 40 MG PO QHS Potassium Chloride (K-Tab ER) 10 Meq Tablet.er, 10 MEQ PO DAILY Risperidone (Risperidone) 0.5 Mg Tablet, 1 MG PO QHS Scheduled PRN Acetaminophen (Acetaminophen) 325 Mg Tablet, 650 MG PO Q4H PRN for PAIN OR FEVER Diclofenac Sodium (Voltaren) 100 Gm Gel..gram., 1 GRAM TOP QID PRN for PAIN APPLY TO RIGHT SHOULDER Hydrocodone/Acetaminophen ([place] 5-325 Tablet) 1 Each Tablet, 2 TAB PO QID PRN for PAIN Allergies Coded Allergies: procaine (Verified Allergy, Severe, difficulty breathing, 02/04/20) Penicillins (Verified Allergy, Intermediate, swelling, 02/04/20) ULYSSES RODRIGUEZ MD Sep 17, 2020 17:37
[2020-09-17] MEDS ORDERED: IMMUNE GLOBULIN 10% 0 GM in IV 1 EA IV SCH (17:45)
[2020-09-17] MEDS ORDERED: NORCO, ANEXSIA 5/325MG TABLET (HYDROcodone/ACETAMINOPHEN) PO PRN (18:15)
--- NOTE | 2020-09-17 19:58 | REP ---
INDICATION: swelling COMPARISON: 06/10/2019. TECHNIQUE: Etienne scale and color Doppler evaluation of the bilateral lower extremities using linear high frequency transducer. FINDINGS: Ultrasound examination of the right and left lower extremity deep venous structures from the common femoral vein to the popliteal vein demonstrates normal compressibility flow and wave patterns in response to respiration and augmentation. There is no evidence for deep venous thrombosis. IMPRESSION: No evidence for deep venous thrombosis. <Electronically signed by Sergio Olmedo > 09/17/201953
[2020-09-17] MEDS ORDERED: PANTOPRAZOLE 40MG TAB (PROTONIX) PO SCH (21:00)
[2020-09-17] MEDS: risperiDONE 1 MG TAB PO SCH (21:17)
[2020-09-17] MEDS: ALPRAZolam 0.25 MG TAB PO SCH (21:17)
[2020-09-17] MEDS: NYSTATIN 100,000 UNITS/GM TOPICAL PWD 15 GM TOP SCH (21:17)
[2020-09-17] MEDS: levETIRAcetam 250MG TABLET (KEPPRA) PO SCH (21:18)
[2020-09-17] MEDS: RAMELTEON 8 MG TAB (ROZEREM) PO SCH (21:18)
[2020-09-17] MEDS: DOCUSATE SODIUM 100 MG CAP PO SCH (21:18)
[2020-09-17] MEDS: IMMUNE GLOBULIN 10% 80 GM in IV 1 EA IV SCH (22:34)
[2020-09-18] VITALS (30 sets, daily range): BP systolic 111–137; BP diastolic 42–65
[2020-09-18] MEDS: ACETAMINOPHEN TAB 650MG DOSE (2X325MG) PO PRN ×2 (02:02→18:47)
[2020-09-18] MEDS ORDERED: GLUCAGON INJ 1MG VIAL SC PRN (04:45)
[2020-09-18] MEDS ORDERED: DEXTROSE 50% 50 ML SYRINGE IV PRN (04:45)
[2020-09-18] MEDS ORDERED: GLUCOSE 4GM CHEW TABLET PO PRN (04:45)
--- NOTE | 2020-09-18 07:19 | ECGEPIP ---
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
[2020-09-18] MEDS: HumaLOG INSULIN (NovoLOG) PER UNIT SC SCH ×4 (07:30→18:48)
[2020-09-18] MEDS: FAMOTIDINE 20 MG TAB PO SCH (08:28)
[2020-09-18] MEDS: ALPRAZolam 0.25 MG TAB PO SCH ×2 (08:28→22:25)
[2020-09-18] MEDS: levETIRAcetam 250MG TABLET (KEPPRA) PO SCH ×2 (08:28→22:25)
[2020-09-18] MEDS: DOCUSATE SODIUM 100 MG CAP PO SCH ×2 (08:28→22:25)
[2020-09-18] MEDS: POTASSIUM CHLORIDE 10 MEQ SR TABLET PO SCH (08:28)
[2020-09-18] MEDS: MAGNESIUM CHLORIDE 64 MG TABCR (SLO MAG) PO SCH (08:28)
[2020-09-18] MEDS: CETIRIZINE (ZyrTEC) 10 MG TAB PO SCH (08:29)
[2020-09-18] MEDS: bisoproloL fumarate 10 MG TAB PO SCH (08:29)
--- NOTE | 2020-09-18 08:44 | IPNPDOC ---
Date Seen The patient was seen on 09/18/20. Progress Note SUBJECTIVE: Patient was seen and examined at bedside. She is alert to place, person and time. However, he is confused with a flat affect. He has refused blood work this morning. Second unit of packed red blood cells infusing. OBJECTIVE PHYSICAL EXAMINATION: VITAL SIGNS: please see below General: NAD, comfortable HEENT: PERRLA, EOMI, sclerae clear Neck: supple, normal ROM, no JVD Respiratory: lungs CTAB, no wheeze, no rales, no crackles CVS: RRR, normal S1, S2, no murmurs Abdo: soft, no masses, no hepatosplenomegaly, BS+, no rebound tenderness. Large midline laparotomy, large midline thoracotomy scar Extremities: biateral LE swelling, non pitting edema, chronic venous stasis changes. MSK: no joint deformities, normal ROM Neuro: no focal neuro deficits, moving all 4 extremities, CN2-12 intact. Strength 5/5 in all 4 extremities. No nystagmus. Psych: calm, cooperative, AAO x 3 LABORATORY DATA, IMAGING STUDIES, MICROBIOLOGY: Please see below. DVT prophylaxis ordered?: SCDs, TEDs ASSESSMENT: 80-year-old male with a history of dementia, DM2, ITP, coronary artery disease status post stenting, colon cancer status post resection and chemotherapy, presenting with a generalized weakness, worsening for the past 2 days, found to be anemic of 8 with hemoglobin of 6.1 as well as thrombocytopenic with plan with count of 1. Discussed with oncology, Dr. Quiroz on consult. Recommended starting dexamethasone 40 mg by mouth for 4 days as well as IVIG infusion. Transfuse pRBC and PLT. PLAN: #acute on chronic ITP: Hgb 6.1. PLT (EDTA-free) 1. Hematology consult. Dw Dr. Quiroz. Transfusing 2 units pRBC. 1 pack PLT. Maintain Hgb > 7. Patient refused labs, attempt another lab draw. Prednisone pulse 40 mg PO daily for 4 days. IVIG 1 g/kg for 2 days. Monitor CBC. Monitor for bleeding. Per records review, patient has failed multiple courses of steroids and IVIG. Romiplostim per heme. #anemia: Hgb 6.1. no hx of melena, no hematuria. check FOBT. check ferritin. #DM2: ISS, FSBS AC & HS, hypoglycemic precautions. Check a1c. Trend h/h q8h.hh #Dementia: continue home meds. Melatonin (Rozeram while inpt) Risperidone. #B12 deficiency: receives month B12 injections with hematology clinic #HTN: bisoprolol 10 mg PO daily #Seizure disorder: continue keppra #Intertrigo: below abdominal and inguinal fold. Nystatin powder. #BLE: suspect chronic venous insufficiency. Elevated BLE. Medigrip stocking. Bilateral venous dupplex. #Elevated BNP: last echo 06/2019. LVEF 70%. G1DD. Small pericardial effusion. AVR. Does not appear fluid overloaded. CXR clear. Trial low dose lasix 20 mg PO for LE edema, although is suspect it is mostly venous insufficiency related. #urinary retention: indwelling solis, follows with Dr. Torres, no suspicion for UTI (hx of UTIs in past) Dispo: spoke with , Charline Samano ([phone]), she provides 12/06 care. Anxious for patient to return home. PT for HSE given weakness. DVT PPX: TEDs, SCDs. Avoid chemo ppx due to acute ITP. VS, I&O, 24H, Fishbone Vital Signs/I&O Vital Signs Date Time Temp Pulse Resp B/P (MAP) Pulse Ox O2 Delivery O2 Flow Rate FiO2 09/18/20 08:29 65 123/45 09/18/20 08:02 97.4 17 91 Room Air I&O- Last 24 Hours up to 6 AM 09/18/20 06:00 Intake Total 1370 ml Output Total 700 ml Balance 670 ml Laboratory Data 24H LABS Laboratory Tests 2 09/17/20 14:36: Immature Granulocyte % (Auto) 1.6, Neutrophils (%) (Auto) 66.7H, Lymphocytes (%) (Auto) 22.2L, Monocytes (%) (Auto) 7.7H, Eosinophils (%) (Auto) 1.3, Basophils (%) (Auto) 0.5, Neutrophils # (Auto) 5.0, Lymphocytes # (Auto) 1.7, Monocytes # (Auto) 0.6, Eosinophils # (Auto) 0.1, Basophils # (Auto) 0.0, Nucleated Red Blood Cells % (auto) 1.1H, Prothrombin Time 13.6, Prothromb Time International Ratio 1.02, Activated Partial Thromboplast Time 26.0 09/17/20 14:38: Anion Gap 8, Glomerular Filtration Rate > 60.0, Calcium Level 8.6L, Total Bilirubin 0.4, Direct Bilirubin 0.1, Aspartate Amino Transf (AST/SGOT) 11, Alanine Aminotransferase (ALT/SGPT) 11L, Alkaline Phosphatase 88, Total Creatine Kinase 51, Creatine Kinase MB 1.9, Creatine Kinase MB Relative Index 3.73, Troponin I < 0.02, FJ-Rjb-K-Type Natriuretic Peptide 1354H, Total Protein 5.7L, Albumin 2.7L, Albumin/Globulin Ratio 0.9, Lipase 100, Thyroid Stimulating Hormone (TSH) 1.630, Free Thyroxine 0.96 09/18/20 07:30: Bedside Glucose (Misc Panel) 114H CBC/BMP Laboratory Tests 09/17/20 14:36 09/17/20 14:38 ULYSSES RODRIGUEZ MD Sep 18, 2020 08:44
[2020-09-18] MEDS ORDERED: FUROSEMIDE 20 MG TAB PO SCH (09:00)
[2020-09-18] MEDS: NYSTATIN 100,000 UNITS/GM TOPICAL PWD 15 GM TOP SCH ×2 (10:18→22:29)
[2020-09-18] MEDS: LEVEMIR (INSULIN DETEMIR) 1 UNITS/0.01ML SC SCH (11:18)
[2020-09-18 11:44] LABS: BASO % 0.4 % (0.0-1.0); EOS # 0.1 10^3/uL (0.0-0.5); EOS % 1.3 % (0.0-3.0); HEMOGLOBIN 7.3 g/dl (13.5-17.5); LYMPH # 0.7 10^3/uL (1.5-5.0); LYMPH % 10.3 % (24.0-44.0); MEAN CORPUSCULAR HEMOGLOBIN 30.3 pg (27.0-33.0); MEAN CORPUSCULAR HGB CONC 31.7 g/dl (32.0-36.5); MEAN CORPUSCULAR VOLUME 95.4 fl (80.0-96.0); MONO # 0.4 10^3/uL (0.0-0.8); MONO % 6.4 % (0.0-5.0); NEUTROPHILS # 5.5 10^3/uL (1.5-8.5); NEUTROPHILS % 80.1 % (36.0-66.0); PLATELET COUNT, AUTOMATED 9 10^3/uL (150-450); RED BLOOD COUNT 2.41 10^6/uL (4.30-6.10); WHITE BLOOD COUNT 6.9 10^3/uL (4.0-10.0)
[2020-09-18 12:20] LABS: ALBUMIN 2.3 GM/DL (3.2-5.2); ALT/SGPT 10 U/L (12-78); BILIRUBIN,TOTAL 0.4 MG/DL (0.2-1.0); BLOOD UREA NITROGEN 23 MG/DL (7-18); CALCIUM LEVEL 7.9 MG/DL (8.8-10.2); CARBON DIOXIDE LEVEL 24 MEQ/L (21-32); CHLORIDE LEVEL 112 MEQ/L (98-107); CREATININE FOR GFR 0.86 MG/DL (0.70-1.30); FERRITIN 353 NG/ML (26-388); GLOMERULAR FILTRATION RATE > 60.0 (>35); GLUCOSE, FASTING 168 MG/DL (70-100); MAGNESIUM LEVEL 1.6 MG/DL (1.8-2.4); POTASSIUM SERUM 3.6 MEQ/L (3.5-5.1); SODIUM LEVEL 142 MEQ/L (136-145); TOTAL PROTEIN 6.1 GM/DL (6.4-8.2)
[2020-09-18] MEDS: PANTOPRAZOLE 40MG TAB (PROTONIX) PO SCH ×3 (14:11→22:25)
[2020-09-18] MEDS: MAG SULF 1GM/100ML (MAG RUN) 1 GM in IV 1 EA IV SCH ×2 (14:11→15:03)
[2020-09-18 15:24] LABS: APPEARANCE, URINE CLEAR (CLEAR); BACTERIA, URINE AUTO 1+ (NEGATIVE); BILIRUBIN, URINE AUTO NEGATIVE (NEGATIVE); BLOOD, URINE BLOOD NEGATIVE (NEGATIVE); COLOR, URINE STRAW (YELLOW); GLUCOSE, URINE (UA) AUTO 1+ mg/dL (NEGATIVE); KETONE, URINE AUTO NEGATIVE (NEGATIVE); LEUKOCYTE ESTERASE, URINE AUTO NEGATIVE (NEGATIVE); NITRITE, URINE AUTO NEGATIVE (NEGATIVE); PROTEIN, URINE AUTO NEGATIVE (NEGATIVE); RBC, URINE AUTO 2 /HPF (0-3); SPECIFIC GRAVITY URINE AUTO 1.009 (1.002-1.035); SQUAMOUS EPITHELIAL CELL UR AU 0 /HPF (0-6); UROBILINOGEN, URINE AUTO 0.2 mg/dL (0.0-2.0); WBC, URINE AUTO 0 /HPF (0-3)
[2020-09-18 16:36] LABS: HEMATOCRIT 25.1 % (42.0-52.0); HEMOGLOBIN 8.3 g/dl (13.5-17.5); MEAN CORPUSCULAR HEMOGLOBIN 29.9 pg (27.0-33.0); MEAN CORPUSCULAR HGB CONC 33.1 g/dl (32.0-36.5); MEAN CORPUSCULAR VOLUME 90.3 fl (80.0-96.0); RED BLOOD COUNT 2.78 10^6/uL (4.30-6.10)
[2020-09-18 16:43] LABS: PLATELET COUNT, AUTOMATED 37 10^3/uL (150-450)
[2020-09-18 18:40] LABS: LDH LACTATE DEHYDROGENASE 167 U/L (87-241)
[2020-09-18] MEDS: FUROSEMIDE 20MG/2ML VIAL (J1940) IV SCH (18:47)
--- NOTE | 2020-09-18 20:07 | CR.PDOC ---
General Date of Consultation: Sep 18, 2020 Referring Provider: ULYSSES RODRIGUEZ MD Primary Care Physician: Blaine Byrd MD Attending Physician: ULYSSES RODRIGUEZ MD Consultation REASON FOR CONSULTATION/CHIEF COMPLAINT: ITP. HISTORY OF PRESENT ILLNESS: Mr. Augie Samano is an 80-year-old man diagnosed with ITP 06/2018. At that time he presented with anemia and significant thrombocytopenia with bone marrow aspiration and biopsy 07/05/2018 showing a high normocellular bone marrow with slightly increased number of mature looking megakaryocytes suggestive of periphe ral destruction or sequestration of platelets. No evidence of hematological malignancy. He was also found to have platelet clumping in addition to ITP. Since then he has had treatment with IVIG, high-dose steroids, rituximab, and Fostamatinib (Tavalisse) which was started December 2018. In November 2019 he was switched to Romiplostim for financial reasons. He was on Romiplostim from November of this year with adequate platelet counts. Intermittently, his platelet counts would go down and he has also received IVIG for acute drops in platelet counts. Most recent IVIG infusion was given when he was admitted in June 2020 to [facility] for acute decrease in platelet count. Mr. Samano was scheduled for a CBC check and Romiplostim injection yesterday at the [facility] for cancer care. His reported that he had been lethargic and weak. CBC showed hemoglobin level 6.2 G/DL and platelet count 1 K/UL. Received a dose of Romiplostim yesterday at the [facility]. He was advised to go to [facility] ER where a repeat CBC confirmed significant anemia and significant thrombocytopenia. On admission, he was transfused 2 units of packed red cells and he also received platelet transfusion. He was started on pulse dexamethasone 40 mg by mouth daily. This is to be taken for 4 days. He was also started on IV IgG. Today's CBC showed an improvement in blood counts with hemoglobin 8.3 and platelet count 37. The patient reports feeling reasonably well when he was seen at bedside. He reports in particular that his energy levels have improved since admission. He reports no overt bleeding issues. ALLERGIES: Please see below. HOME MEDICATIONS: Please see below. PAST MEDICAL HISTORY: Hypertension. Diabetes mellitus. Coronary artery disease with coronary stent placement. Aortic valve disease with stenosis for which he underwent porcine valve replacement. Congestive heart failure. GERD. Stage I colon cancer 2017 for which he underwent resection. Spinal stenosis. Aortic valve repair. Appendectomy. Carpal tunnel syndrome. Degenerative joint disease. Carotid endarterectomy 2007. PAST SURGICAL HISTORY: As above in past medical history FAMILY HISTORY: The patient's father had an unknown malignancy. One brother had lung cancer. Another brother had colon cancer. SOCIAL HISTORY: . Lives with his who holds healthcare proxy. Former smoker. Former alcohol use, but no recent alcohol use. REVIEW OF SYSTEMS: General: Reports: Fatigue Constitutional: Denies: Chills, Weight Loss Eyes: Denies: Vision change HEENT: Denies: Head Aches, Dysphagia, Sore Throat, Epistaxis Skin: Denies: Rash, Lesions, Jaundice, Bruising and petechia. Pulmonary: Denies: Dyspnea, Cough Cardiovascular: Denies: Chest Pain, Palpitations, Orthopnea, Edema Gastrointestinal: Denies: Nausea, Vomiting, Diarrhea Genitourinary: Denies: Dysuria, Frequency, Incontinence Hematologic: Denies: Rectal bleeding, urinary bleeding, gum bleeding and epistaxis, Bruising, Petecchia. Musculoskeletal: Reports: Muscle pain, Muscle stiffness Neurological: Reports: Weakness, Incoordination Psych: Reports: Mood Normal PHYSICAL EXAMINATION: VITAL SIGNS: Please see below. GENERAL APPEARANCE: Awake, comfortable. Seated in bed, not in distress. Answered questions appropriately, chronically ill-looking. HEENT: Atraumatic, normocephalic, moist oral mucosa, no gum bleeding. Pinkish conjunctiva, anicteric. RESPIRATORY: Fair entry. No rales no rhonchi, no wheeze. CARDIOVASCULAR: S1, S2 regular. No murmur. No gallop. ABDOMEN: Soft. No guarding. No palpable masses. Positive bowel sounds. EXTREMITIES: Mild pedal edema bilaterally, No cyanosis. NEUROLOGICAL: Alert. Oriented to time, place and person. PSYCHIATRIC: Mood normal. Not agitated. LABORATORY DATA: Please see below. ASSESSMENT/PLAN: 1. Chronic ITP with acute decrease in platelet count. Acute drop in platelet count of unclear etiology, but may signify refractory ITP. Currently on Romiplostim for chronic ITP. IVIG 1 mg/kg per day for 2 days. Dexamethasone pulsed dose 40 mg daily for 4 days only. Transfuse platelets for platelet count 10 or less. Continue monitoring platelet counts daily. 2. Significant anemia. Would rule out GI bleed and hemolysis. Transfuse packed red cells for hemoglobin less than 7 or higher cutoff if symptomatic. If hemoglobin level and platelet counts remain stable in the next few days, the patient may be discharged home. To have a follow-up appointment with me in 1-2 weeks. Thank you for requesting a consult on Mr. Augie Samano. Vital Signs/I&O Vital Signs Date Time Temp Pulse Resp B/P (MAP) Pulse Ox O2 Delivery O2 Flow Rate FiO2 09/18/20 14:40 97.2 53 17 129/55 95 Room Air I&O- Last 24 Hours up to 6 AM 09/18/20 06:00 Intake Total 1370 ml Output Total 700 ml Balance 670 ml Laboratory Data Labs 24H Laboratory Tests 2 09/18/20 07:30: Bedside Glucose (Misc Panel) 114H 09/18/20 11:08: Immature Granulocyte % (Auto) 1.5, Neutrophils (%) (Auto) 80.1H, Lymphocytes (%) (Auto) 10.3L, Monocytes (%) (Auto) 6.4H, Eosinophils (%) (Auto) 1.3, Basophils (%) (Auto) 0.4, Neutrophils # (Auto) 5.5, Lymphocytes # (Auto) 0.7L, Monocytes # (Auto) 0.4, Eosinophils # (Auto) 0.1, Basophils # (Auto) 0.0, Nucleated Red Blood Cells % (auto) 1.5H, Anion Gap 6L, Glomerular Filtration Rate > 60.0, Calcium Level 7.9L, Magnesium Level 1.6L, Ferritin 353, Total Bilirubin 0.4, Aspartate Amino Transf (AST/SGOT) 14, Alanine Aminotransferase (ALT/SGPT) 10L, Alkaline Phosphatase 76, Lactate Dehydrogenase 167, Total Protein 6.1L, Albumin 2.3L, Albumin/Globulin Ratio 0.6 09/18/20 11:34: Bedside Glucose (Misc Panel) 177H 09/18/20 15:07: Urine Color STRAW, Urine Appearance CLEAR, Urine pH 5.0, Urine Specific [place] 1.009, Urine Protein NEGATIVE, Urine Glucose (Auto)(UA) 1+H, Urine Ketones (Auto) NEGATIVE, Urine Blood NEGATIVE, Urine Nitrite NEGATIVE, Urine Bilirubin NEGATIVE, Urine Urobilinogen 0.2, Urine Leukocyte Esterase (Auto) NEGATIVE, Urine WBC (Auto) 0, Urine RBC (Auto) 2, Urine Hyaline Casts (Auto) 0, Urine Bacteria (Auto) 1+H, Urine Squamous Epithelial Cells 0, Urine Sperm (Auto) 09/18/20 16:09: Bedside Glucose (Misc Panel) 254H 09/18/20 16:14: Nucleated Red Blood Cells % (auto) 1.0H, Immature Platelet Fraction 14.1H CBC/BMP Laboratory Tests 09/18/20 11:08 09/18/20 16:14 Allergies Coded Allergies: procaine (Verified Allergy, Severe, difficulty breathing, 02/04/20) Penicillins (Verified Allergy, Intermediate, swelling, 02/04/20) Home Medications Scheduled Alprazolam (Alprazolam) 0.25 Mg Tablet, 0.25 MG PO BID, (Reported) Bisoprolol Fumarate (Bisoprolol Fumarate) 10 Mg Tablet, 10 MG PO DAILY, (Reported) Cetirizine HCl (Cetirizine HCl) 10 Mg Tablet, 10 MG PO DAILY, (Reported) Docusate Sodium (Stool Softener) 100 Mg Capsule, 100 MG PO BID, (Reported) Famotidine (Pepcid) 40 Mg Tablet, 40 MG PO DAILY, (Reported) Insulin Glargine,Hum.rec.anlog (Lantus Solostar) 100 Unit/1 Ml Insuln.pen, 26 UNITS SC DAILY, (Reported) Levetiracetam (Keppra) 250 Mg Tablet, 250 MG PO QAM, (Reported) Levetiracetam (Levetiracetam) 250 Mg Tablet, 500 MG PO QHS, (Reported) Magnesium Chloride (Mag64) 64 Mg Tablet.dr, 64 MG PO DAILY, (Reported) Melatonin (Melatonin) 10 Mg Capsule, 10 MG PO QHS, (Reported) Pantoprazole Sodium (Pantoprazole Sodium) 40 Mg Tablet.dr, 40 MG PO QHS, (Reported) Potassium Chloride (K-Tab ER) 10 Meq Tablet.er, 10 MEQ PO DAILY, (Reported) Risperidone (Risperidone) 0.5 Mg Tablet, 1 MG PO QHS, (Reported) Scheduled PRN Diclofenac Sodium (Voltaren) 100 Gm Gel..gram., 1 GRAM TOP QID PRN for PAIN, (Reported) APPLY TO RIGHT SHOULDER Hydrocodone/Acetaminophen ([place] 5-325 Tablet) 1 Each Tablet, 2 TAB PO QID PRN for PAIN, (Reported) JOAN DUCKWORTH MD Sep 18, 2020 20:07
[2020-09-18] MEDS ORDERED: HumaLOG INSULIN (NovoLOG) PER UNIT SC SCH (21:00)
[2020-09-18] MEDS: risperiDONE 1 MG TAB PO SCH (22:25)
[2020-09-18] MEDS: RAMELTEON 8 MG TAB (ROZEREM) PO SCH (22:25)
[2020-09-18] MEDS: IMMUNE GLOBULIN 10% 80 GM in IV 1 EA IV SCH (22:27)
[2020-09-19] VITALS (26 sets, daily range): BP systolic 108–123; BP diastolic 45–54
[2020-09-19 06:06] LABS: BASO % 0.1 % (0.0-1.0); HEMATOCRIT 21.6 % (42.0-52.0); LYMPH # 0.7 10^3/uL (1.5-5.0); LYMPH % 8.8 % (24.0-44.0); MEAN CORPUSCULAR HEMOGLOBIN 29.3 pg (27.0-33.0); MEAN CORPUSCULAR VOLUME 94.3 fl (80.0-96.0); MONO # 0.5 10^3/uL (0.0-0.8); MONO % 6.1 % (0.0-5.0); NEUTROPHILS # 6.6 10^3/uL (1.5-8.5); NEUTROPHILS % 83.9 % (36.0-66.0); RED BLOOD COUNT 2.29 10^6/uL (4.30-6.10); WHITE BLOOD COUNT 7.8 10^3/uL (4.0-10.0)
[2020-09-19 06:12] LABS: PLATELET COUNT, AUTOMATED 58 10^3/uL (150-450)
[2020-09-19 06:16] LABS: HEMOGLOBIN 6.7 g/dl (13.5-17.5)
[2020-09-19 06:48] LABS: ALBUMIN 2.2 GM/DL (3.2-5.2); ALT/SGPT 11 U/L (12-78); BILIRUBIN,TOTAL 0.3 MG/DL (0.2-1.0); BLOOD UREA NITROGEN 27 MG/DL (7-18); CARBON DIOXIDE LEVEL 22 MEQ/L (21-32); CHLORIDE LEVEL 109 MEQ/L (98-107); GLOMERULAR FILTRATION RATE > 60.0 (>35); GLUCOSE, FASTING 178 MG/DL (70-100); POTASSIUM SERUM 3.7 MEQ/L (3.5-5.1); SODIUM LEVEL 139 MEQ/L (136-145); TOTAL PROTEIN 7.4 GM/DL (6.4-8.2)
[2020-09-19] MEDS: HumaLOG INSULIN (NovoLOG) PER UNIT SC SCH ×4 (07:08→17:59)
[2020-09-19] MEDS: MAGNESIUM CHLORIDE 64 MG TABCR (SLO MAG) PO SCH (09:27)
[2020-09-19 09:28] LABS: LDH LACTATE DEHYDROGENASE 194 U/L (87-241)
[2020-09-19] MEDS: LEVEMIR (INSULIN DETEMIR) 1 UNITS/0.01ML SC SCH (09:28)
[2020-09-19] MEDS: ALPRAZolam 0.25 MG TAB PO SCH ×2 (09:30→20:13)
[2020-09-19] MEDS: FAMOTIDINE 20 MG TAB PO SCH (09:30)
[2020-09-19] MEDS: bisoproloL fumarate 10 MG TAB PO SCH (09:30)
[2020-09-19] MEDS: FUROSEMIDE 20MG/2ML VIAL (J1940) IV SCH ×2 (09:31→18:00)
[2020-09-19] MEDS: PANTOPRAZOLE 40MG TAB (PROTONIX) PO SCH ×2 (09:31→20:13)
[2020-09-19] MEDS: POTASSIUM CHLORIDE 10 MEQ SR TABLET PO SCH (09:31)
[2020-09-19] MEDS: NYSTATIN 100,000 UNITS/GM TOPICAL PWD 15 GM TOP SCH ×2 (09:31→20:13)
[2020-09-19] MEDS: DOCUSATE SODIUM 100 MG CAP PO SCH ×2 (09:31→20:13)
[2020-09-19] MEDS: levETIRAcetam 250MG TABLET (KEPPRA) PO SCH ×2 (09:31→20:13)
[2020-09-19] MEDS: CETIRIZINE (ZyrTEC) 10 MG TAB PO SCH (09:31)
--- NOTE | 2020-09-19 09:44 | IPNPDOC ---
Date Seen The patient was seen on 09/19/20. Progress Note SUBJECTIVE: Patient was seen and examined at bedside. H is alert to place, person and time. However, he has a flat affect. denies bleeding, melena. denies headache, vision changes, chest pain, abdo pain, or thigh pain. No fevers or chills. OBJECTIVE PHYSICAL EXAMINATION: VITAL SIGNS: please see below General: NAD, comfortable HEENT: PERRLA, EOMI, sclerae clear Neck: supple, normal ROM, no JVD Respiratory: lungs CTAB, no wheeze, no rales, no crackles CVS: RRR, normal S1, S2, no murmurs Abdo: soft, no masses, no hepatosplenomegaly, BS+, no rebound tenderness. Large midline laparotomy, large midline thoracotomy scar Extremities: bilateral LE swelling, non pitting edema, chronic venous stasis changes. MSK: no joint deformities, normal ROM Neuro: no focal neuro deficits, moving all 4 extremities, CN2-12 intact. Strength 5/5 in all 4 extremities. No nystagmus. Psych: calm, cooperative, AAO x 3 LABORATORY DATA, IMAGING STUDIES, MICROBIOLOGY: Please see below. DVT prophylaxis ordered?: SCDs, TEDs ASSESSMENT: 80-year-old male with a history of dementia, DM2, ITP, coronary artery disease status post stenting, colon cancer status post resection and chemotherapy, presenting with a generalized weakness, worsening for the past 2 days, found to be anemic of 8 with hemoglobin of 6.1 as well as thrombocytopenic with plan with count of 1. Discussed with oncology, Dr. Quiroz on consult. Recommended starting dexamethasone 40 mg by mouth for 4 days as well as IVIG infusion. Transfuse pRBC and PLT. 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 Quiroz. Transfused 1 pack PLT. Transfuse for PLT <10. Prednisone pulse 40 mg PO daily for 4 days. IVIG 1 g/kg for 2 days. Monitor CBC. Monitor for bleeding. Per records review, patient has failed multiple courses of steroids and IVIG. Romiplostim per heme. #anemia: Hgb 6.1, improved to 8.3 after 2 pRBC. Dropped on 09/19 6.7. Ordered additional 2 untis pRBC. no hx of melena per , no hemoptysis, no recent falls, no hematuria (UA clean). Ferritin 353. check FOBT. Bleeding vs hemolysis. LDH 164. Retic count 182.8. Peripheral smear ordered. #DM2: ISS, FSBS AC & HS, hypoglycemic precautions. Check a1c. Trend h/h q8h.hh #Dementia: continue home meds. Melatonin (Rozeram while inpt) Risperidone. #B12 deficiency: receives month B12 injections with hematology clinic #HTN: bisoprolol 10 mg PO daily #Seizure disorder: continue keppra #Intertrigo: below abdominal and inguinal fold. Nystatin powder. #BLE: suspect chronic venous insufficiency. Elevated BLE. Medigrip stocking. Bilateral venous dupplex negative for DVT. #Elevated BNP: last echo 06/2019. LVEF 70%. G1DD. Small pericardial effusion. AVR. Does not appear fluid overloaded. CXR clear. Daily weights, increaed by 2 kg. lasix 20 mg IV bid, titrate to daily on 09/20 #urinary retention: indwelling solis, follows with Dr. Torres, UA no sign infection. Dispo: spoke with , Charline Samano ([phone]), she provides 12/06 care. Anxious for patient to return home. PT for HSE given weakness. DVT PPX: TEDs, SCDs. Avoid chemo ppx due to acute ITP. VS, I&O, 24H, Fishbone Vital Signs/I&O Vital Signs Date Time Temp Pulse Resp B/P (MAP) Pulse Ox O2 Delivery O2 Flow Rate FiO2 09/19/20 09:30 65 115/50 09/19/20 05:31 97.7 18 98 Room Air I&O- Last 24 Hours up to 6 AM 09/19/20 05:59 Intake Total 1102 ml Output Total 3250 ml Balance -2148 ml Laboratory Data 24H LABS Laboratory Tests 2 09/18/20 11:08: Immature Granulocyte % (Auto) 1.5, Neutrophils (%) (Auto) 80.1H, Lymphocytes (%) (Auto) 10.3L, Monocytes (%) (Auto) 6.4H, Eosinophils (%) (Auto) 1.3, Basophils (%) (Auto) 0.4, Neutrophils # (Auto) 5.5, Lymphocytes # (Auto) 0.7L, Monocytes # (Auto) 0.4, Eosinophils # (Auto) 0.1, Basophils # (Auto) 0.0, Nucleated Red Blood Cells % (auto) 1.5H, Anion Gap 6L, Glomerular Filtration Rate > 60.0, Calcium Level 7.9L, Magnesium Level 1.6L, Ferritin 353, Total Bilirubin 0.4, Aspartate Amino Transf (AST/SGOT) 14, Alanine Aminotransferase (ALT/SGPT) 10L, Alkaline Phosphatase 76, Lactate Dehydrogenase 167, Total Protein 6.1L, Albumin 2.3L, Albumin/Globulin Ratio 0.6 09/18/20 11:34: Bedside Glucose (Misc Panel) 177H 09/18/20 15:07: Urine Color STRAW, Urine Appearance CLEAR, Urine pH 5.0, Urine Specific [place] 1.009, Urine Protein NEGATIVE, Urine Glucose (Auto)(UA) 1+H, Urine Ketones (Auto) NEGATIVE, Urine Blood NEGATIVE, Urine Nitrite NEGATIVE, Urine Bilirubin NEGATIVE, Urine Urobilinogen 0.2, Urine Leukocyte Esterase (Auto) NEGATIVE, Urine WBC (Auto) 0, Urine RBC (Auto) 2, Urine Hyaline Casts (Auto) 0, Urine Bacteria (Auto) 1+H, Urine Squamous Epithelial Cells 0, Urine Sperm (Auto) 09/18/20 16:09: Bedside Glucose (Misc Panel) 254H 09/18/20 16:14: Nucleated Red Blood Cells % (auto) 1.0H, Immature Platelet Fraction 14.1H 09/18/20 19:47: Bedside Glucose (Misc Panel) 250H 09/18/20 23:40: Bedside Glucose (Misc Panel) 188H 09/19/20 05:51: Nucleated Red Blood Cells % (auto) 0.5H, Immature Granulocyte % (Auto) 1.1, Neutrophils (%) (Auto) 83.9H, Lymphocytes (%) (Auto) 8.8L, Monocytes (%) (Auto) 6.1H, Eosinophils (%) (Auto) 0.0, Basophils (%) (Auto) 0.1, Neutrophils # (Auto) 6.6, Lymphocytes # (Auto) 0.7L, Monocytes # (Auto) 0.5, Eosinophils # (Auto) 0.0, Basophils # (Auto) 0.0, Reticulocyte # (auto) 182.8H, Differential Slide Review Report, Peripheral Blood Smear Path Consult PERIPHERAL SMEAR, Percent Reticulocyte Count 8.2H, Reticulocyte Hemoglobin Equivalent 35.3, Anion Gap 8, Glomerular Filtration Rate > 60.0, Calcium Level 8.0L, Magnesium Level 2.0, Total Bilirubin 0.3, Aspartate Amino Transf (AST/SGOT) 12, Alanine Aminotransferase (ALT/SGPT) 11L, Alkaline Phosphatase 57, Lactate Dehydrogenase 194, Total Protein 7.4#, Albumin 2.2L, Albumin/Globulin Ratio 0.4 CBC/BMP Laboratory Tests 09/18/20 11:08 09/18/20 16:14 09/19/20 05:51 Microbiology Microbiology 09/18/20 Stool Occult Blood (JORGE), Ordered Pending ULYSSES RODRIGUEZ MD Sep 19, 2020 09:44
[2020-09-19] MEDS ORDERED: QUEtiapine FUMARATE 25 MG TAB PO PRN (19:15)
[2020-09-19] MEDS: RAMELTEON 8 MG TAB (ROZEREM) PO SCH (20:13)
[2020-09-19] MEDS: risperiDONE 1 MG TAB PO SCH (20:13)
[2020-09-19 21:11] LABS: BASO % 0.1 % (0.0-1.0); HEMATOCRIT 28.5 % (42.0-52.0); HEMOGLOBIN 9.3 g/dl (13.5-17.5); LYMPH # 0.4 10^3/uL (1.5-5.0); LYMPH % 4.8 % (24.0-44.0); MEAN CORPUSCULAR HEMOGLOBIN 30.3 pg (27.0-33.0); MEAN CORPUSCULAR HGB CONC 32.6 g/dl (32.0-36.5); MEAN CORPUSCULAR VOLUME 92.8 fl (80.0-96.0); MONO # 0.3 10^3/uL (0.0-0.8); MONO % 3.8 % (0.0-5.0); NEUTROPHILS # 8.1 10^3/uL (1.5-8.5); NEUTROPHILS % 90.6 % (36.0-66.0); RED BLOOD COUNT 3.07 10^6/uL (4.30-6.10); WHITE BLOOD COUNT 8.9 10^3/uL (4.0-10.0)
[2020-09-19 21:16] LABS: PLATELET COUNT, AUTOMATED 81 10^3/uL (150-450)
[2020-09-20] MEDS: HumaLOG INSULIN (NovoLOG) PER UNIT SC SCH ×2 (01:09→06:00)
[2020-09-20 06:00] VITALS: BP 122/57
[2020-09-20 06:10] LABS: BASO % 0.1 % (0.0-1.0); HEMATOCRIT 28.2 % (42.0-52.0); HEMOGLOBIN 9.3 g/dl (13.5-17.5); LYMPH # 0.7 10^3/uL (1.5-5.0); LYMPH % 8.2 % (24.0-44.0); MEAN CORPUSCULAR HEMOGLOBIN 30.9 pg (27.0-33.0); MEAN CORPUSCULAR VOLUME 93.7 fl (80.0-96.0); MONO # 0.6 10^3/uL (0.0-0.8); MONO % 7.3 % (0.0-5.0); NEUTROPHILS # 6.8 10^3/uL (1.5-8.5); NEUTROPHILS % 83.7 % (36.0-66.0); RED BLOOD COUNT 3.01 10^6/uL (4.30-6.10); WHITE BLOOD COUNT 8.1 10^3/uL (4.0-10.0)
[2020-09-20 06:22] LABS: PLATELET COUNT, AUTOMATED 68 10^3/uL (150-450)
[2020-09-20 06:39] LABS: ALBUMIN 2.2 GM/DL (3.2-5.2); ALT/SGPT 13 U/L (12-78); BILIRUBIN,TOTAL 0.4 MG/DL (0.2-1.0); BLOOD UREA NITROGEN 28 MG/DL (7-18); CALCIUM LEVEL 8.4 MG/DL (8.8-10.2); CARBON DIOXIDE LEVEL 24 MEQ/L (21-32); CHLORIDE LEVEL 112 MEQ/L (98-107); CREATININE FOR GFR 0.98 MG/DL (0.70-1.30); GLOMERULAR FILTRATION RATE > 60.0 (>35); GLUCOSE, FASTING 139 MG/DL (70-100); MAGNESIUM LEVEL 2.1 MG/DL (1.8-2.4); POTASSIUM SERUM 3.9 MEQ/L (3.5-5.1); SODIUM LEVEL 140 MEQ/L (136-145); TOTAL PROTEIN 7.1 GM/DL (6.4-8.2)
[2020-09-20] MEDS: FUROSEMIDE 20MG/2ML VIAL (J1940) IV SCH (08:59)
[2020-09-20] MEDS: MAGNESIUM CHLORIDE 64 MG TABCR (SLO MAG) PO SCH (08:59)
[2020-09-20] MEDS: LEVEMIR (INSULIN DETEMIR) 1 UNITS/0.01ML SC SCH (08:59)
[2020-09-20 09:00] VITALS: BP 119/50
[2020-09-20] MEDS: NYSTATIN 100,000 UNITS/GM TOPICAL PWD 15 GM TOP SCH (09:00)
[2020-09-20] MEDS: bisoproloL fumarate 10 MG TAB PO SCH (09:00)
[2020-09-20] MEDS: FAMOTIDINE 20 MG TAB PO SCH (09:00)
[2020-09-20] MEDS: CETIRIZINE (ZyrTEC) 10 MG TAB PO SCH (09:01)
[2020-09-20] MEDS: ALPRAZolam 0.25 MG TAB PO SCH (09:01)
[2020-09-20] MEDS: POTASSIUM CHLORIDE 10 MEQ SR TABLET PO SCH (09:01)
[2020-09-20] MEDS: PANTOPRAZOLE 40MG TAB (PROTONIX) PO SCH (09:01)
[2020-09-20] MEDS: DOCUSATE SODIUM 100 MG CAP PO SCH (09:01)
[2020-09-20] MEDS: levETIRAcetam 250MG TABLET (KEPPRA) PO SCH (09:01)
[2020-09-20] MEDS ORDERED: PANT40TA29 PO (10:45)
[2020-09-20] MEDS ORDERED: ACET1TAB55 PO (10:45)
[2020-09-20] MEDS ORDERED: DEXA4TA PO (10:58)
--- NOTE | 2020-09-20 11:24 | DS.PDOC ---
Discharge Summary General Date of Admission Sep 18, 2020 at 14:43 Date of Discharge 09/20/20 Discharge Summary PROCEDURES PERFORMED DURING STAY: None ADMITTING DIAGNOSES: acute on chronic ITP acute blood loss anemia DM2 Dementia B12 deficiency HTN Seizure disorder Intertrigo BLE edema Urinary retention DISCHARGE DIAGNOSES: acute on chronic ITP acute blood loss anemia DM2 Dementia B12 deficiency HTN Seizure disorder Intertrigo BLE edema Urinary retention COMPLICATIONS/CHIEF COMPLAINT: Acute Itp Chronic Itp. HISTORY OF PRESENT ILLNESS: 80 M with a hx of dementia, ITP, CAD s/p stenting, DM2, colon ca s/p resection/chemo, presents to [facility] ER with a 2 day hx of progressively worsening generalized weakness. He is a poor historian. He follows with oncology at [facility], last seen in 07/2020. He gets frequent IVIG infusions. On arrival, vitals stable. Hgb 6.1. Hct 19.5. PLT 1 (EDTA-free: 1). She denies chest pain, shortness of breath or any gross bleeding. Discussed with Dr. Duckworth, who sees the patient in clinic, recommend starting pulse of dexamethasone 40 mg by mouth 4 days as well as IVIG infusion of 1 g/kg for 2 days. Last colonoscopy 06/[address] Ruvalcaba, when 2 cm mass was bx (adenoca), along with numerous polyps. patient underwent extended R hemicolectomy in 07/2018. HOSPITAL COURSE: #acute on chronic ITP: Hematology consulted, Dr. Dr. Duckworth. Transfuse for PLT <10. Recived 1 pack PLT. Prednisone pulse 40 mg PO daily for 4 days. IVIG 1 g/kg for 2 days. Monitor CBC. Monitor for bleeding. Per records review, patient has failed multiple courses of steroids and IVIG. Romiplostim per heme. #anemia: Hgb 6.1, improved to 8.3 after 2 pRBC. Dropped on 09/19 6.7. Ordered additional 2 units pRBC, and Hgb remained stable > 9. Per RN, stool was dark, with no gross bleeding/melena. no hx of melena per , no hemoptysis, no recent falls, no hematuria (UA clean). Ferritin 353. Bleeding vs hemolysis. LDH 164. Retic count 182.8. Haptoglobin wnl. Do not suspect hemolysis. Peripheral smear ordered. Patient has refused inpatient colonoscopy, all risks were explained. Discussed with Dr. Tena, it is appropriate to purse outpatient colonoscopy in timely fashion. Patient's informed by telephone and agrees with patient's decision. Instructions to f/u with Dr. Ruvalcaba and Dr. Carvalho within 1-2 weeks for outpatient workup. #Hx colon ca: extended R hemicolectomy in 07/[address] Carvalho. Needs repeat surveillance c-scope. #DM2: ISS, FSBS AC & HS, hypoglycemic precautions. takes lantus 26 units daily at home. #Dementia: continue home meds. Melatonin (Rozeram while inpt) Risperidone. #B12 deficiency: receives month B12 injections with hematology clinic #HTN: bisoprolol 10 mg PO daily #Seizure disorder: continue keppra #Intertrigo: below abdominal and inguinal fold. Nystatin powder. #BLE: suspect chronic venous insufficiency. Elevated BLE. Medigrip stocking. Bilateral venous dupplex negative for DVT. #Elevated BNP: last echo 06/2019. LVEF 70%. G1DD. Small pericardial effusion. AVR. Does not appear fluid overloaded. CXR clear. Daily weights, increased by 2 kg. lasix 20 mg IV bid for 1 days given increased fluid intake in IVIG. D/c with 20 mg lasix PO daily home dose. #urinary retention: indwelling solis, follows with Dr. Torres, UA no sign infection. Dispo: home safety eval by PT complete, safe to return home with 24/7 care provided by his spouse. DISCHARGE MEDICATIONS: Please see below. ALLERGIES: Please see below. PHYSICAL EXAMINATION ON DISCHARGE: VITAL SIGNS: please see below General: NAD, comfortable HEENT: PERRLA, EOMI, sclerae clear Neck: supple, normal ROM, no JVD Respiratory: lungs CTAB, no wheeze, no rales, no crackles CVS: RRR, normal S1, S2, no murmurs Abdo: soft, no masses, no hepatosplenomegaly, BS+, no rebound tenderness. Large midline laparotomy, large midline thoracotomy scar Extremities: bilateral LE swelling, non pitting edema, chronic venous stasis changes. MSK: no joint deformities, normal ROM Neuro: no focal neuro deficits, moving all 4 extremities, CN2-12 intact. Strength 5/5 in all 4 extremities. No nystagmus. Psych: calm, cooperative, AAO x 3 LABORATORY DATA: Please see below. IMAGING: Bilateral venous duplex (09/17/20): No evidence for deep venous thrombosis. CXR (09/17/20): no active pulmonary disease. ACTIVITY: [As tolerated]. DIET: CC DISCHARGE PLAN: home with 24/7 support from family, with PCP and specialist f/u. Needs repeat CBC within 3-5 days and colonoscopy. To f/u with Dr. Ruvalcaba and Dr. Carvalho. DISCHARGE INSTRUCTIONS: PLEASE FOLLOW UP WITH YOUR PRIMARY CARE DOCTOR WITHIN 3-5 DAYS, TO HAVE REPEAT MEASUREMENT OF YOUR BLOOD COUNTS PLEASE FOLLOW UP WITH DR. DUCKWORTH IN HEMATOLOGY CLINIC WITHIN 1 WEEK. PLEASE FOLLOW UP WITH MEDICAL SCREENER DR. RUVALCABA WITHIN 1-2 WEEKS FOR POSSIBLE COLONOSCOPY. PLEASE FOLLOW UP WITH DR. CARVALHO IN 1-2 WEEKS FOR FOLLOW UP OF PRIOR COLON RESECTION/POSSIBLE GI BLEEDING SOURCE, NOW STABLE PLEASE TAKE YOUR MEDICATIONS PRESCRIBED IF YOU DEVELOP BLEEDING, FATIGUE, CHEST PAIN, SHORTNESS OF BREATH, FEVERS, CHILLS, BLEEDING OR OTHERWISE WORSENING OF YOUR SYMPTOMS, PLEASE CALL 911 OR RETURN TO THE EMERGENCY DEPARTMENT. ITEMS TO FOLLOWUP ON ON OUTPATIENT: 1. Repeat CBC 2. Colonoscopy DISCHARGE CONDITION: [Stable]. TIME SPENT ON DISCHARGE: Greater than 30 minutes. Vital Signs/I&Os Vital Signs Date Time Temp Pulse Resp B/P (MAP) Pulse Ox O2 Delivery O2 Flow Rate FiO2 09/20/20 09:00 58 119/50 09/20/20 06:00 96.8 18 93 Room Air I&O- Last 24 Hours up to 6 AM 09/20/20 06:00 Intake Total 1330 ml Output Total 2325 ml Balance -995 ml Laboratory Data Labs 24H Laboratory Tests 2 09/19/20 11:22: Bedside Glucose (Misc Panel) 175H 09/19/20 16:34: Bedside Glucose (Misc Panel) 226H 09/19/20 20:35: Bedside Glucose (Misc Panel) 194H 09/19/20 20:57: Immature Granulocyte % (Auto) 0.7, Neutrophils (%) (Auto) 90.6H, Lymphocytes (%) (Auto) 4.8L, Monocytes (%) (Auto) 3.8, Eosinophils (%) (Auto) 0.0, Basophils (%) (Auto) 0.1, Neutrophils # (Auto) 8.1, Lymphocytes # (Auto) 0.4L, Monocytes # (Auto) 0.3, Eosinophils # (Auto) 0.0, Basophils # (Auto) 0.0, Nucleated Red Blood Cells % (auto) 0.3H, Immature Platelet Fraction 13.2H 09/20/20 00:57: Bedside Glucose (Misc Panel) 208H 09/20/20 05:39: Bedside Glucose (Misc Panel) 140H 09/20/20 05:48: Immature Granulocyte % (Auto) 0.7, Neutrophils (%) (Auto) 83.7H, Lymphocytes (%) (Auto) 8.2L, Monocytes (%) (Auto) 7.3H, Eosinophils (%) (Auto) 0.0, Basophils (%) (Auto) 0.1, Neutrophils # (Auto) 6.8, Lymphocytes # (Auto) 0.7L, Monocytes # (Auto) 0.6, Eosinophils # (Auto) 0.0, Basophils # (Auto) 0.0, Nucleated Red Blood Cells % (auto) 0.4H, Anion Gap 4L, Glomerular Filtration Rate > 60.0, Calcium Level 8.4L, Magnesium Level 2.1, Total Bilirubin 0.4, Aspartate Amino Transf (AST/SGOT) 17, Alanine Aminotransferase (ALT/SGPT) 13, Alkaline Phosphatase 61, Total Protein 7.1, Albumin 2.2L, Albumin/Globulin Ratio 0.4 CBC/BMP Laboratory Tests 09/19/20 20:57 09/20/20 05:48 FSBS Laboratory Tests Test 09/19/20 11:22 09/19/20 16:34 09/19/20 20:35 09/20/20 00:57 Range/Units Bedside Glucose (Misc Panel) 175 226 194 208 83-110 MG/DL Test 09/20/20 05:39 Range/Units Bedside Glucose (Misc Panel) 140 83-110 MG/DL Microbiology Microbiology 09/19/20 Stool Occult Blood (JORGE) - Final, Complete 09/18/20 Stool Occult Blood (JORGE), Ordered Pending Discharge Medications Scheduled Alprazolam (Alprazolam) 0.25 Mg Tablet, 0.25 MG PO BID, (Reported) Bisoprolol Fumarate (Bisoprolol Fumarate) 10 Mg Tablet, 10 MG PO DAILY, (Reported) Cetirizine HCl (Cetirizine HCl) 10 Mg Tablet, 10 MG PO DAILY, (Reported) Docusate Sodium (Stool Softener) 100 Mg Capsule, 100 MG PO BID, (Reported) Insulin Glargine,Hum.rec.anlog (Lantus Solostar) 100 Unit/1 Ml Insuln.pen, 26 UNITS SC DAILY, (Reported) Levetiracetam (Keppra) 250 Mg Tablet, 250 MG PO QAM, (Reported) Levetiracetam (Levetiracetam) 250 Mg Tablet, 500 MG PO QHS, (Reported) Magnesium Chloride (Mag64) 64 Mg Tablet.dr, 64 MG PO DAILY, (Reported) Melatonin (Melatonin) 10 Mg Capsule, 10 MG PO QHS, (Reported) Pantoprazole Sodium (Pantoprazole Sodium) 40 Mg Tablet.dr, 40 MG PO QHS Potassium Chloride (K-Tab ER) 10 Meq Tablet.er, 10 MEQ PO DAILY, (Reported) Risperidone (Risperidone) 0.5 Mg Tablet, 1 MG PO QHS, (Reported) Scheduled PRN Acetaminophen (Acetaminophen) 325 Mg Tablet, 650 MG PO Q4H PRN for PAIN OR FEVER Diclofenac Sodium (Voltaren) 100 Gm Gel..gram., 1 GRAM TOP QID PRN for PAIN, (Reported) APPLY TO RIGHT SHOULDER Hydrocodone/Acetaminophen ([place] 5-325 Tablet) 1 Each Tablet, 2 TAB PO QID PRN for PAIN, (Reported) Allergies Coded Allergies: procaine (Verified Allergy, Severe, difficulty breathing, 02/04/20) Penicillins (Verified Allergy, Intermediate, swelling, 02/04/20) ULYSSES RODRIGUEZ MD Sep 20, 2020 11:24
== END 2020-09-20 12:45 | disposition home or self-care (01) | DRG 813 ==
LOC: M ED 14:11 → M ED INP 17:41 → ENRESERV 19:08 → M MSPAV 19:54 → OBSVTOIN 09-18 14:43
PROVIDERS: ADMIT Family Medicine; ATTEND Family Medicine
PROC: 30233N1 Transfusion of Nonautologous Red Blood Cells into Peripheral Vein, Percutaneous Approach (ICD-10-PCS; principal; 2020-09-17)
DX: D69.3 Immune thrombocytopenic purpura (principal); D62 Acute posthemorrhagic anemia; E11.9 Type 2 diabetes mellitus without complications; F03.90 Unspecified dementia, unspecified severity, without behavioral disturbance, psychotic disturbance, mood disturbance, and anxiety; E53.8 Deficiency of other specified B group vitamins; I11.0 Hypertensive heart disease with heart failure; G40.909 Epilepsy, unspecified, not intractable, without status epilepticus; R33.9 Retention of urine, unspecified; L30.4 Erythema intertrigo; I25.10 Atherosclerotic heart disease of native coronary artery without angina pectoris; Z85.038 Personal history of other malignant neoplasm of large intestine; Z79.899 Other long term (current) drug therapy; Z88.0 Allergy status to penicillin; Z88.5 Allergy status to narcotic agent; Z95.2 Presence of prosthetic heart valve; F17.200 Nicotine dependence, unspecified, uncomplicated; I50.9 Heart failure, unspecified; K21.9 Gastro-esophageal reflux disease without esophagitis

== ENCOUNTER 2021-03-18 12:04 | Inpatient (IN) | payer MEDICAID, MEDICARE ==
[~2021-03-18] VITALS: Ht 180.3 cm; Wt 101.0 kg
[2021-03-18] VITALS (17 sets, daily range): BP systolic 96–145; BP diastolic 43–84
[2021-03-18] MEDS: bisoproloL fumarate 10 MG TAB PO SCH (09:00)
[~2021-03-18 12:04] MED LIST changes: +ACYC1TAB PO; -ACYC400T PO; +ASPI-569 PO; -ASPI81TAEC PO; +CLOT1CRE56 TOP; -CVS10CAP8 PO; +DEXA4TA PO; +FLUC200T2 PO; +GABA-282 PO; -GABA-843 PO; -LISI-538 PO; +LISI20TA33 PO; -LISI40TA PO; +LISI40TA4 PO; +MELA10CA6 PO; -QUET1TAB7 PO; +QUET25TA3 PO; +RISP-7 PO; -RISP0.5T3 PO; +VOLT1GEL15 TOP; +[UNRECOGNIZED DRUG - CODE] PO
[2021-03-18] MEDS ORDERED: PANTOPRAZOLE 40MG VIAL (C9113 PER 1) IV ONE (12:25)
--- NOTE | 2021-03-18 12:35 | REP ---
INDICATION: SOB earlier now resolved. COMPARISON: 09/17/2020. TECHNIQUE: Single portable AP view of the chest was performed. FINDINGS: There is no acute infiltrate or pulmonary edema. Lungs are clear. The heart is not significantly enlarged. The mediastinal silhouette is unremarkable. The visualized osseous structures are intact.Multiple sternal wires are present. IMPRESSION: No acute pulmonary disease. <Electronically signed by Silvio Etienne > 03/18/21 1230
[2021-03-18 12:39] LABS: BASO % 0.4 % (0.0-1.0); EOS % 0.1 % (0.0-3.0); LYMPH # 2.1 10^3/uL (1.5-5.0); LYMPH % 22.5 % (24.0-44.0); MEAN CORPUSCULAR HEMOGLOBIN 31.8 pg (27.0-33.0); MEAN CORPUSCULAR HGB CONC 33.3 g/dl (32.0-36.5); MEAN CORPUSCULAR VOLUME 95.5 fl (80.0-96.0); MONO # 0.6 10^3/uL (0.0-0.8); MONO % 6.1 % (2.0-8.0); NEUTROPHILS # 6.6 10^3/uL (1.5-8.5); NEUTROPHILS % 69.9 % (36.0-66.0); RED BLOOD COUNT 1.54 10^6/uL (4.30-6.10); WHITE BLOOD COUNT 9.4 10^3/uL (4.0-10.0)
[2021-03-18 12:41] LABS: HEMATOCRIT 14.7 % (42.0-52.0); HEMOGLOBIN 4.9 g/dl (13.5-17.5); PLATELET COUNT, AUTOMATED 1 10^3/uL (150-450)
[2021-03-18 12:56] LABS: INR 1.1; PROTHROMBIN TIME 14.5 SECONDS (12.5-14.3)
[2021-03-18 12:57] LABS: PARTIAL THROMBOPLASTIN TIME 24.9 SECONDS (24.2-38.5)
[2021-03-18 13:05] LABS: ALBUMIN 2.9 GM/DL (3.2-5.2); ALT/SGPT 36 U/L (12-78); BILIRUBIN,DIRECT 0.2 MG/DL (0.0-0.2); BILIRUBIN,TOTAL 0.5 MG/DL (0.2-1.0); BLOOD UREA NITROGEN 58 MG/DL (7-18); CALCIUM LEVEL 7.2 MG/DL (8.8-10.2); CARBON DIOXIDE LEVEL 24 MEQ/L (21-32); CHLORIDE LEVEL 102 MEQ/L (98-107); CK-MB VALUE MASS 2.5 NG/ML (<3.6); CPK CREATINE PHOSPHOKINASE 133 U/L (39-308); CREATININE FOR GFR 1.46 MG/DL (0.70-1.30); GLOMERULAR FILTRATION RATE 49.5 (>35); GLUCOSE, FASTING 202 MG/DL (70-100); LIPASE 166 U/L (73-393); MB/CK RELATIVE INDEX 1.88 (< OR =4); POTASSIUM SERUM 3.1 MEQ/L (3.5-5.1); SODIUM LEVEL 138 MEQ/L (136-145); TROPONIN I < 0.02 NG/ML (< 0.10)
[2021-03-18 13:26] LABS: RSV AMPLIFICATION NEGATIVE (NEGATIVE)
[2021-03-18] MEDS ORDERED: BACT800T5 PO (13:36)
[2021-03-18] MEDS ORDERED: POTA10CA32 PO (13:36)
[2021-03-18] MEDS ORDERED: PANT-23 PO (13:36)
[2021-03-18] MEDS ORDERED: LEVE250T5 PO (13:36)
[2021-03-18] MEDS ORDERED: FURO20TA2 PO (13:36)
[2021-03-18] MEDS ORDERED: RISP-8 PO (13:36)
[2021-03-18] MEDS ORDERED: POTASSIUM CHLORIDE 10 MEQ SR TABLET PO ONE (14:00)
[2021-03-18] MEDS ORDERED: NORCO, ANEXSIA 5/325MG TABLET (HYDROcodone/ACETAMINOPHEN) PO PRN (14:05)
[2021-03-18] MEDS ORDERED: DOCUSATE SODIUM 100MG CAPSULE PO PRN (14:05)
[2021-03-18] MEDS ORDERED: IMMUNE GLOBULIN 10% 0 GM in IV 1 EA IV SCH (14:05)
--- NOTE | 2021-03-18 14:24 | HPEPDOC ---
[facility] Medical History & Physical Date of Admission Mar 18, 2021 Date of Service: Mar 18, 2021 History and Physical CHIEF COMPLAINT: black stools HISTORY OF PRESENT ILLNESS: 80-year-old male with past medical history as ind icated presents for one day history of black stools. Patient also notes dizziness and lightheadedness. He states roughly one week ago, he did have a fall, however, he attributes this fall to losing his balance. Most of history was obtained from his at bedside. This morning he denies chest pain, abdominal pain, nausea or vomiting. 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 # History of stage I [id number] carcinoma of the ascending colon status post right hemicolectomy Dr. Carvalho 2017 # History of B12 deficiency on monthly B12 shot #pseudothrombocytopenia, needs EDTA free tube for platelet counts #anxiety # HTN/HTN heart disease # HFpEF - last echo on record 2018 #DM #GERD #aortic valve stenosis s/p bioprosthetic aortic valve replacement, subsequent repair? #carotid artery disease s/p CEA 2007 #CAD/stents #HLD #spinal stenosis #hx endocarditis with septic emboli ALLERGIES: Please see below. REVIEW OF SYSTEMS: Negative except as per HPI. HOME MEDICATIONS: Please see below. PHYSICAL EXAMINATION: VITAL SIGNS: See below General: NAD, lying comfortably in bed HEENT: NC/AT, EOMI Lungs: CTA B/L Heart: +S1S2, RRR, systolic murmur Abd: soft, NT, +BS Ext: chronic venous stasis changes LABORATORY DATA: See below. MICROBIOLOGY: Please see below. A/P: 80 yo male for symptomatic acute blood loss anemia, likely secondary to gi bleed, with PMHx of ITP. #ABLA - transfuse to keep Hg >8 - clear liquids - surgical consultation - possible colonoscopy #ITP - heme c/s pending - IVIG 1g/kg qd x 2 days - patient refusing dexamethasone due to severe yeast infection from previous treatment #anxiety - continue 0.25 xanax BID as per home dosing #stage I [id number] carcinoma of the ascending colon status post right hemicole ctomy Dr. Carvalho 2017 # HTN/HTN heart disease # HFpEF - last echo on record 2018 #DM - clear liquid diet for now - sliding scale insulin #GERD #aortic valve stenosis s/p bioprosthetic aortic valve replacement, subsequent repair? #carotid artery disease s/p CEA 2007 #CAD/stents #HLD #spinal stenosis #hx endocarditis with septic emboli #DVT prophylaxis - mechanical Code Status: discussed at bedside, is HCP, DNR/DNI as per patient and Vital Signs Vital Signs Date Time Temp Pulse Resp B/P (MAP) Pulse Ox O2 Delivery O2 Flow Rate FiO2 03/18/21 13:49 97.5 88 18 118/60 100 Room Air Laboratory Data Labs 24H Laboratory Tests 2 03/18/21 12:24: Immature Granulocyte % (Auto) 1.0, Neutrophils (%) (Auto) 69.9H, Lymphocytes (%) (Auto) 22.5L, Monocytes (%) (Auto) 6.1, Eosinophils (%) (Auto) 0.1, Basophils (%) (Auto) 0.4, Neutrophils # (Auto) 6.6, Lymphocytes # (Auto) 2.1, Monocytes # (Auto) 0.6, Eosinophils # (Auto) 0.0, Basophils # (Auto) 0.0, Nucleated Red Blood Cells % (auto) 2.7H, Immature Platelet Fraction 9.6, Anion Gap 12, Glomerular Filtration Rate 49.5, Calcium Level 7.2L, Total Bilirubin 0.5, Direct Bilirubin 0.2, Aspartate Amino Transf (AST/SGOT) 23, Alanine Aminotransferase (ALT/SGPT) 36, Alkaline Phosphatase 56, Total Creatine Kinase 133, Creatine Kinase MB 2.5, Creatine Kinase MB Relative Index 1.88, Troponin I < 0.02, Total Protein 5.0L, Albumin 2.9L, Albumin/Globulin Ratio 1.4, Lipase 166 03/18/21 12:25: Prothrombin Time 14.5H, Prothromb Time International Ratio 1.10, Activated Partial Thromboplast Time 24.9L 03/18/21 12:29: Coronavirus (COVID-19)(PCR) NEGATIVE, Influenza Type A (RT-PCR) NEGATIVE, Influenza Type B (RT-PCR) NEGATIVE, Respiratory Syncytial Virus (PCR) NEGATIVE CBC/BMP Laboratory Tests 03/18/21 12:24 Home Medications Scheduled Alprazolam (Alprazolam) 0.25 Mg Tablet, 0.25 MG PO BID Bisoprolol Fumarate (Bisoprolol Fumarate) 10 Mg Tablet, 10 MG PO DAILY Cetirizine HCl (Cetirizine HCl) 10 Mg Tablet, 10 MG PO DAILY Fostamatinib Disodium (Tavalisse) 150 Mg Tablet, 150 MG PO BID Insulin Glargine,Hum.rec.anlog (Lantus Solostar) 100 Unit/1 Ml Insuln.pen, 26 UNITS SC DAILY Levetiracetam (Levetiracetam) 250 Mg Tablet, 500 MG PO QHS Levetiracetam (Levetiracetam) 250 Mg Tablet, 250 MG PO QAM Magnesium Chloride (Mag64) 64 Mg Tablet.dr, 64 MG PO DAILY Melatonin (Melatonin) 10 Mg Capsule, 10 MG PO QHS Pantoprazole Sodium (Pantoprazole Sodium) 40 Mg Tablet.dr, 40 MG PO DAILY Potassium Chloride (Potassium Chloride) 10 Meq Capsule.er, 10 MEQ PO QHS Risperidone (Risperidone) 1 Mg Tablet, 2 MG PO QHS Scheduled PRN Diclofenac Sodium (Voltaren) 100 Gm Gel..gram., 1 GRAM TOP QID PRN for PAIN APPLY TO RIGHT SHOULDER Docusate Sodium (Stool Softener) 100 Mg Capsule, 100 MG PO BID PRN for CONSTIPATION Furosemide (Furosemide) 20 Mg Tablet, 20 MG PO DAILY PRN for EDEMA Hydrocodone/Acetaminophen (Hydrocodone-Acetamin 5-325 mg) 1 Each Tablet, 2 TAB PO QID PRN for PAIN Sulfamethoxazole/Trimethoprim (Bactrim Ds Tablet) 1 Each Tablet, 1 TAB PO BID PRN for UTI Allergies Coded Allergies: cephalexin (Verified Allergy, Severe, made his face peel, 11/04/20) procaine (Verified Allergy, Severe, difficulty breathing, 02/04/20) Penicillins (Verified Allergy, Intermediate, swelling, 02/04/20) A-FIB/CHADSVASC A-FIB History Current/History of A-Fib/PAF?: No DEJAH CR MD Mar 18, 2021 14:24
--- NOTE | 2021-03-18 15:27 | CR.PDOC ---
General Date of Consultation: Mar 18, 2021 Referring Provider: DEJAH CR MD Primary Care Physician: Blaine Byrd MD Consultation REASON FOR CONSULTATION/CHIEF COMPLAINT: ITP with acute anemia HISTORY OF PRESENT ILLNESS: Augie Samano is an 80 year old male with a history of ITP diagnosed in 2017. He presented at that time with anemia and thrombocytopenia. Bone marrow aspiration and biopsy in 06/2018 revealed high normocellular bone marrow with slightly increased number of mature looking megakaryocytes suggestive of peripheral destruction or sequestration of platelets. In December 2018 he started on treatment which has involved IVIG, high-dose steroids, rituximab, and Fostamatinib (Tavalisse). Due to insurance/financial reason, he was switched to Romiplostim (Nplate). He has had multiple admissions for ITP with low platelet count which have required IVIG and dexamethasone, most recently in August 2020. His platelet counts did improve on Nplate, but due to side effects of a facial rash the medication was stopped. Last Nplate was given on 02/25/2021. Today, the patient presented to the ED due to dark stools noticed by his . He states he has been constipated without a bowel movement for the past three days. This morning, the patient was able to have a large bowel movement. His noticed the dark stools and was concerned he may have a GI bleed and they reported to the ED for care. He states he has had dark stools previously and at that time was diagnosed with colon cancer. He states that since his colon resection in 2017 he had not had any dark stool or blood in the stool that he was aware of. He denies abdominal pain, nausea, vomiting, diarrhea, or bright red blood in the stool. He does note some lightheadedness recently, especially when standing. He reports one fall about a week ago, which he states was due to loss of balance. He did have a minor scrape on his arm from this. His state this clotted well and they were not concerned for any excessive bleeding after his fall. He denies hitting his head or injuring any other areas during the fall. History is provided by the patient and his who is present at bedside. ALLERGIES: Please see below. HOME MEDICATIONS: Please see below. PAST MEDICAL HISTORY: Hypertension. Diabetes mellitus. Coronary artery disease s/p stent placement. Aortic valve disease with stenosis s/p porcine replacement. Congestive heart failure. GERD. Stage I colon cancer 2018 s/p resection. Spinal stenosis. Carpal tunnel syndrome. Degenerative joint disease. Hx endocarditis with septic emboli. B12 deficiency. Refractory ITP. PAST SURGICAL HISTORY: Colon resection. Aortic valve replacement, porcine Appendectomy. Carotid endarterectomy. FAMILY HISTORY: The patient's father had an unknown malignancy. One brother had lung cancer. Another brother had colon cancer. SOCIAL HISTORY: . Lives with his who holds healthcare proxy. Former smoker. Former alcohol use, but no recent alcohol use. No illicit s ubstance use. REVIEW OF SYSTEMS: CONSTITUTIONAL: Endorses fatigue. Denies fevers, chills, night sweats, unexpected change in weight. HEENT: Denies change in vision, change in hearing. CARDIOVASCULAR: Denies chest pain, palpitations, shortness of breath. RESPIRATORY: Denies dyspnea, cough, wheezing. GASTROINTESTINAL: Denies nausea, vomiting, abdominal pain, diarrhea, constipation. GENITOURINARY: Endorses chronic solis catheter in place. Denies suprapubic pressure. SKIN: Denies new rash, lesions. MUSCULOSKELETAL: Endorses muscle stiffness NEUROLOGICAL: Endorses chronic weakness. Denies headache. HEME/LYMPH: Endorses easy bruising. Denies recent bleeding episodes. PSYCHIATRIC: Denies change in mood. PHYSICAL EXAMINATION: VITAL SIGNS: Please see below. GENERAL: Alert, comfortable, in no acute distress HEENT: Normocephalic, atraumatic, PERRLA, EOMI, moist mucous membranes NECK: Supple, trachea midline, no lymphadenopathy CARDIOVASCULAR: Regular rate and rhythm, normal S1 and S2. No murmurs, rubs, or gallops RESPIRATORY: Clear to auscultation bilaterally with equal air entry bilaterally. No wheezing, rhonchi, or rales. ABDOMEN: Soft, nontender, nondistended, bowel sounds present. EXTREMITIES: 2+ pitting edema on bilateral lower extremities with venous stasis dermatitis bilaterally. SKIN: Bruising apparent on the extremities. No open wounds appreciated. NEUROLOGIC: Alert and oriented x3 to person, place and time. PSYCHIATRIC: Mood and affect appropriate, although he is somewhat frustrated with needing to be in the hospital. LABORATORY DATA: Please see below. ASSESSMENT/PLAN: 1. Acute on chronic ITP - recommend IVIG 1 mg/kg per day for 2 days. - recommend pulse dose dexamethasone 40mg daily for 4 days. However, pt refusing dexamethasone due to yeast infection after his last admission for ITP which he attributes to the steroid treatment. - if patient would take prednisone instead for steroid treatment, recommend starting at 1mg/kg p.o. - platelet transfusion for platelet count less than 10,000 and actively bleeding. - monitor daily for platelet count and would also obtain EDTA free platelet counts. 2. Acute on chronic anemia suspected 2/2 GI bleed - management per primary team for GI bleed - currently ordered for PRBC transfusion for Hg 4.9 - recommend to transfuse for Hg below 8.0 due to hx of coronary artery disease Thank you for this consult. We are happy to participate in the care of Mr. Samano. Vital Signs/I&O Vital Signs Date Time Temp Pulse Resp B/P (MAP) Pulse Ox O2 Delivery O2 Flow Rate FiO2 03/18/21 14:31 97.0 89 18 105/53 99 Room Air Laboratory Data Labs 24H Laboratory Tests 2 03/18/21 12:24: Immature Granulocyte % (Auto) 1.0, Neutrophils (%) (Auto) 69.9H, Lymphocytes (%) (Auto) 22.5L, Monocytes (%) (Auto) 6.1, Eosinophils (%) (Auto) 0.1, Basophils (%) (Auto) 0.4, Neutrophils # (Auto) 6.6, Lymphocytes # (Auto) 2.1, Monocytes # (Auto) 0.6, Eosinophils # (Auto) 0.0, Basophils # (Auto) 0.0, Nucleated Red Blood Cells % (auto) 2.7H, Immature Platelet Fraction 9.6, Anion Gap 12, Glomerular Filtration Rate 49.5, Calcium Level 7.2L, Total Bilirubin 0.5, Direct Bilirubin 0.2, Aspartate Amino Transf (AST/SGOT) 23, Alanine Aminotransferase (ALT/SGPT) 36, Alkaline Phosphatase 56, Total Creatine Kinase 133, Creatine Kinase MB 2.5, Creatine Kinase MB Relative Index 1.88, Troponin I < 0.02, Total Protein 5.0L, Albumin 2.9L, Albumin/Globulin Ratio 1.4, Lipase 166 03/18/21 12:25: Prothrombin Time 14.5H, Prothromb Time International Ratio 1.10, Activated Partial Thromboplast Time 24.9L 03/18/21 12:29: Coronavirus (COVID-19)(PCR) NEGATIVE, Influenza Type A (RT-PCR) NEGATIVE, Influenza Type B (RT-PCR) NEGATIVE, Respiratory Syncytial Virus (PCR) NEGATIVE CBC/BMP Laboratory Tests 03/18/21 12:24 Allergies Coded Allergies: cephalexin (Verified Allergy, Severe, made his face peel, 11/04/20) procaine (Verified Allergy, Severe, difficulty breathing, 02/04/20) Penicillins (Verified Allergy, Intermediate, swelling, 02/04/20) Home Medications Scheduled Alprazolam (Alprazolam) 0.25 Mg Tablet, 0.25 MG PO BID, (Reported) Bisoprolol Fumarate (Bisoprolol Fumarate) 10 Mg Tablet, 10 MG PO DAILY, (Reported) Cetirizine HCl (Cetirizine HCl) 10 Mg Tablet, 10 MG PO DAILY, (Reported) Fostamatinib Disodium (Tavalisse) 150 Mg Tablet, 150 MG PO BID, (Reported) Insulin Glargine,Hum.rec.anlog (Lantus Solostar) 100 Unit/1 Ml Insuln.pen, 26 UNITS SC DAILY, (Reported) Levetiracetam (Levetiracetam) 250 Mg Tablet, 500 MG PO QHS, (Reported) Levetiracetam (Levetiracetam) 250 Mg Tablet, 250 MG PO QAM, (Reported) Magnesium Chloride (Mag64) 64 Mg Tablet.dr, 64 MG PO DAILY, (Reported) Melatonin (Melatonin) 10 Mg Capsule, 10 MG PO QHS, (Reported) Pantoprazole Sodium (Pantoprazole Sodium) 40 Mg Tablet.dr, 40 MG PO DAILY, (Reported) Potassium Chloride (Potassium Chloride) 10 Meq Capsule.er, 10 MEQ PO QHS, (Reported) Risperidone (Risperidone) 1 Mg Tablet, 2 MG PO QHS, (Reported) Scheduled PRN Diclofenac Sodium (Voltaren) 100 Gm Gel..gram., 1 GRAM TOP QID PRN for PAIN, (Reported) APPLY TO RIGHT SHOULDER Docusate Sodium (Stool Softener) 100 Mg Capsule, 100 MG PO BID PRN for CONSTIPATION, (Reported) Furosemide (Furosemide) 20 Mg Tablet, 20 MG PO DAILY PRN for EDEMA, (Reported) Hydrocodone/Acetaminophen (Hydrocodone-Acetamin 5-325 mg) 1 Each Tablet, 2 TAB PO QID PRN for PAIN, (Reported) Sulfamethoxazole/Trimethoprim (Bactrim Ds Tablet) 1 Each Tablet, 1 TAB PO BID PRN for UTI, (Reported) GME ATTESTATION GME ATTESTATION My faculty preceptor for this patient encounter was physically present during the encounter and was fully available. All aspects of the patient interview, examination, medical decision making process, and medical care plan development were reviewed and approved by the faculty preceptor. The faculty preceptor is aware and concurs with the plan as stated in the body of this note and will attest to such by his/her cosignature. HONEY DE GUZMAN D.O. Mar 18, 2021 15:27 JOAN DUCKWORTH MD Mar 18, 2021 17:33
[2021-03-18] MEDS: ALPRAZolam 0.25 MG TAB PO SCH ×2 (16:51→20:44)
[2021-03-18] MEDS: risperiDONE 1 MG TAB PO SCH (20:43)
[2021-03-18] MEDS: levETIRAcetam 250MG TABLET (KEPPRA) PO SCH (20:44)
[2021-03-18] MEDS: TAVALISSE PO SCH (20:45)
[2021-03-18] MEDS ORDERED: POTASSIUM CHLORIDE 10 MEQ SR TABLET PO SCH (21:00)
[2021-03-18 21:54] LABS: HEMATOCRIT 17.9 % (42.0-52.0); HEMOGLOBIN 6.1 g/dl (13.5-17.5)
[2021-03-18] MEDS: IMMUNE GLOBULIN 10% 10 GM in IV 1 EA IV SCH ×2 (22:18→23:58)
[2021-03-19] VITALS (34 sets, daily range): BP systolic 85–113; BP diastolic 47–76
[2021-03-19] MEDS: IMMUNE GLOBULIN 10% 80 GM in IV 1 EA IV SCH ×2 (00:35→02:26)
[2021-03-19] MEDS ORDERED: PANTOPRAZOLE 40MG TAB (PROTONIX) PO SCH (09:00)
[2021-03-19] MEDS: levETIRAcetam 250MG TABLET (KEPPRA) PO SCH ×2 (09:00→21:22)
[2021-03-19] MEDS: TAVALISSE PO SCH ×2 (09:00→21:23)
[2021-03-19] MEDS: PANTOPRAZOLE 40MG VIAL (C9113 PER 1) IV SCH (09:03)
[2021-03-19] MEDS: ALPRAZolam 0.25 MG TAB PO SCH ×2 (09:05→21:22)
--- NOTE | 2021-03-19 09:32 | ECGEPIP ---
[facility] - ED Test Date: 2021-03-18 Pat Name: OMID JACKSON Department: Room: - Gender: Male Physician Primary Care Sports Medicine: irene : 1940 Requested By: RAY Kaplan Order Number: [id number] Reading MD: Carmen Wang Measurements Intervals [place] Rate: 97 P: -11 MS: 138 QRS: -24 QRSD: 82 T: 81 QT: 396 QTc: 502 Interpretive Statements Sinus rhythm with occasional premature ventricular complexes and premature atrial complexes baseline artifact may affect interpretation Nonspecific ST and T wave abnormality increased ectopy/rate 09/17/20 Electronically Signed on 03-19-2021 9:32:41 EDT by Carmen Wang
--- NOTE | 2021-03-19 09:51 | IPNPDOC ---
Text Note Date of Service The patient was seen on 03/19/21. NOTE Subjective: Patient seen and examined at bedside. No acute overnight events reported. Patient has no new medical complaints this morning. He is grumpy and not interested in answering any questions. Objective: VITAL SIGNS: See below General: NAD, lying comfortably in bed HEENT: NC/AT, EOMI Lungs: CTA B/L Heart: +S1S2, RRR, systolic murmur Abd: soft, NT, +BS Ext: chronic venous stasis changes CHIEF COMPLAINT: black stools HISTORY OF PRESENT ILLNESS: 80-year-old male with past medical history as indicated presents for one day history of black stools. Patient also notes dizziness and lightheadedness. He states roughly one week ago, he did have a fall, however, he attributes this fall to losing his balance. Most of history was obtained from his at bedside. This morning he denies chest pain, abdominal pain, nausea or vomiting. A/P: 80 yo male presents for one day history of black stools, with dizziness and light-headedness. Admitted for symptomatic acute blood loss anemia, likely secondary to gi bleed, with PMHx of ITP, colon cancer s/p hemicolectomy. #ABLA - transfuse to keep Hg >8 - clear liquids - surgical consultation appreciated - pending scoping today #ITP - heme c/s appreciated - IVIG 1g/kg qd x 2 days - patient refusing dexamethasone due to severe yeast infection from previous treatment #anxiety - continue 0.25 xanax BID as per home dosing #stage I [id number] carcinoma of the ascending colon status post right hemicolectomy Dr. Carvalho 2017 # HTN/HTN heart disease # HFpEF - last echo on record 2019 #DM - NPO today - sliding scale insulin #GERD #aortic valve stenosis s/p bioprosthetic aortic valve replacement, subsequent repair? #carotid artery disease s/p CEA 2007 #CAD/stents #HLD #spinal stenosis #hx endocarditis with septic emboli #DVT prophylaxis - mechanical Code Status: DNR/DNI Dispo: pending scope today, continue to monitor H/H, transfuse as needed VS,Fishbone, I+O VS, Fishbone, I+O Laboratory Tests 03/18/21 12:24 03/18/21 21:36 Vital Signs Date Time Temp Pulse Resp B/P (MAP) Pulse Ox O2 Delivery O2 Flow Rate FiO2 03/19/21 08:59 97.9 75 18 113/56 99 Room Air I&O- Last 24 Hours up to 6 AM 03/19/21 06:00 Intake Total 1607 ml Output Total 1125 ml Balance 482 ml DEJAH CR MD Mar 19, 2021 09:51
[2021-03-19 10:48] LABS: HEMATOCRIT 22.1 % (42.0-52.0); HEMOGLOBIN 7.4 g/dl (13.5-17.5); MEAN CORPUSCULAR HEMOGLOBIN 30.3 pg (27.0-33.0); MEAN CORPUSCULAR HGB CONC 33.5 g/dl (32.0-36.5); MEAN CORPUSCULAR VOLUME 90.6 fl (80.0-96.0); RED BLOOD COUNT 2.44 10^6/uL (4.30-6.10); WHITE BLOOD COUNT 6.8 10^3/uL (4.0-10.0)
[2021-03-19 10:50] LABS: PLTBLUE- EDTA FREE CALC 4 K/mm3 (172-450)
[2021-03-19 11:04] LABS: PLATELET COUNT, AUTOMATED 4 10^3/uL (150-450)
[2021-03-19 11:05] LABS: PLTBLUE- EDTA FREE MACHINE 4 10^3/uL (172-450)
--- NOTE | 2021-03-19 11:10 | CR.PDOC ---
General Surgery Consultation Date of Consultation 03/19/21 History and Physical CONSULT REPORT FOR: Dr. Alonzo REASON FOR CONSULTATION: GI bleed HISTORY OF PRESENT ILLNESS: I was asked to help evaluate Mr. guillen who is an 80-year-old male with advanced dementia, prior history of colon cancer status post extended right colectomy back in 2018 and has a long-standing history of ITP. He lives at home with his . I interviewed his on the phone with regards to his ongoing problems. She reports that he has been constipated a few days prior to Monday and last Monday he started having loose black-colored tarry stool. He remained hemodynamically stable was concerned that the he was having some GI bleed similar to what he had back in 2018 where an ascending colon cancer was found. She brought him to the emergency room and he was found to be profoundly anemic with a hemoglobin of 4.9, Hct of 14.7 and plt of 1. Overnight he received 2 units of packed RBC and on recheck the hemoglobin and hematocrit is at 6.1 and 17.9. He is order to have 2 more units of packed RBCs. He also received a bag of pheresed platelets. Per nursing reports he had a small black stool smear and no melanotic stools overnight. PAST MEDICAL HISTORY: Hypertension. Diabetes mellitus. Coronary artery disease s/p stent placement. Aortic valve disease with stenosis s/p porcine replacement. Congestive heart failure. GERD. Stage I colon cancer 2018 s/p resection. Spinal stenosis. Carpal tunnel syndrome. Degenerative joint disease. Hx endocarditis with septic emboli. B12 deficiency. Refractory ITP. PAST SURGICAL HISTORY: Colon resection. Aortic valve replacement, porcine Appendectomy. Carotid endarterectomy. FAMILY HISTORY: The patient's father had an unknown malignancy. One brother had lung cancer. Another brother had colon cancer. ALLERGIES: Please see below. HOME MEDICATIONS: Please see below. REVIEW OF SYSTEMS: Patient is totally depended on his for care due to advanced dementia. No fevers, chills, unexplained weight loss. He had open colon surgery for T1N0M0 moderately differentiated adenocarcinoma. Due to advance dementia with discussion with his loss prevention guard (per ), it was decided not to pursue surveillance colonoscopy. He has never had problems with ulcers, gastritis before and has never had upper endoscopy done. PHYSICAL EXAMINATION: VITALS SIGNS: Please see below. GENERAL APPEARANCE:Patient asleep, easy to wake up, comfortable not oriented to time, place. SKIN: warm and dry. HEENT: normocephalic, pale palpebral conjunctivae. NECK: Supple, no thyromegaly. No obvious jugular venous distention. LUNGS: Clear to auscultation bilaterally. No wheezing appreciated. HEART: No chest wall abnormalities. Regular rate and rhythm with no murmurs appreciated. ABDOMEN: Abdomen is moderately rounded, obese, soft, nondistended. midline incision healed, nontender on palpation. EXTREMITIES: no significant extremity edema ANCILLARIES:. LABORATORY DATA: Please see below. IMAGING STUDIES: IMPRESSION AND PLAN: Anemia ITP, thrombocytopenia Patient admitted for possible GI bleeding, possible melanotic stools per the 's account so most likely an upper GI source of bleeding. He is getting blood transfusion and has already gotten platelet transfusion. I'm awaiting for the repeat of those. Went ahead and scheduled him for an upper endoscopy today. I have spoken to the with regards to the procedure and obtained consent from her. Patient at home is on pantoprazole. I will switch this to IV for now. . Vital Signs Vital Signs Date Time Temp Pulse Resp B/P (MAP) Pulse Ox O2 Delivery O2 Flow Rate FiO2 03/19/21 08:59 97.9 75 18 113/56 99 Room Air I&Os I&O- Last 24 Hours up to 6 AM 03/19/21 06:00 Intake Total 1607 ml Output Total 1125 ml Balance 482 ml Laboratory Data Labs 24H Laboratory Tests 2 03/18/21 12:24: Immature Granulocyte % (Auto) 1.0, Neutrophils (%) (Auto) 69.9H, Lymphocytes (%) (Auto) 22.5L, Monocytes (%) (Auto) 6.1, Eosinophils (%) (Auto) 0.1, Basophils (%) (Auto) 0.4, Neutrophils # (Auto) 6.6, Lymphocytes # (Auto) 2.1, Monocytes # (Auto) 0.6, Eosinophils # (Auto) 0.0, Basophils # (Auto) 0.0, Nucleated Red Blood Cells % (auto) 2.7H, Immature Platelet Fraction 9.6, Anion Gap 12, Glomerular Filtration Rate 49.5, Calcium Level 7.2L, Total Bilirubin 0.5, Direct Bilirubin 0.2, Aspartate Amino Transf (AST/SGOT) 23, Alanine Aminotransferase (ALT/SGPT) 36, Alkaline Phosphatase 56, Total Creatine Kinase 133, Creatine Kinase MB 2.5, Creatine Kinase MB Relative Index 1.88, Troponin I < 0.02, Total Protein 5.0L, Albumin 2.9L, Albumin/Globulin Ratio 1.4, Lipase 166 03/18/21 12:25: Prothrombin Time 14.5H, Prothromb Time International Ratio 1.10, Activated Partial Thromboplast Time 24.9L 03/18/21 12:29: Coronavirus (COVID-19)(PCR) NEGATIVE, Influenza Type A (RT-PCR) NEGATIVE, Influenza Type B (RT-PCR) NEGATIVE, Respiratory Syncytial Virus (PCR) NEGATIVE 03/19/21 10:31: CBC/BMP Laboratory Tests 03/18/21 12:24 03/18/21 21:36 Home Medications Scheduled Alprazolam (Alprazolam) 0.25 Mg Tablet, 0.25 MG PO BID, (Reported) Bisoprolol Fumarate (Bisoprolol Fumarate) 10 Mg Tablet, 10 MG PO DAILY, (Reported) Cetirizine HCl (Cetirizine HCl) 10 Mg Tablet, 10 MG PO DAILY, (Reported) Fostamatinib Disodium (Tavalisse) 150 Mg Tablet, 150 MG PO BID, (Reported) Insulin Glargine,Hum.rec.anlog (Lantus Solostar) 100 Unit/1 Ml Insuln.pen, 26 UNITS SC DAILY, (Reported) Levetiracetam (Levetiracetam) 250 Mg Tablet, 500 MG PO QHS, (Reported) Levetiracetam (Levetiracetam) 250 Mg Tablet, 250 MG PO QAM, (Reported) Magnesium Chloride (Mag64) 64 Mg Tablet.dr, 64 MG PO DAILY, (Reported) Melatonin (Melatonin) 10 Mg Capsule, 10 MG PO QHS, (Reported) Pantoprazole Sodium (Pantoprazole Sodium) 40 Mg Tablet.dr, 40 MG PO DAILY, (Reported) Potassium Chloride (Potassium Chloride) 10 Meq Capsule.er, 10 MEQ PO QHS, (Reported) Risperidone (Risperidone) 1 Mg Tablet, 2 MG PO QHS, (Reported) Scheduled PRN Diclofenac Sodium (Voltaren) 100 Gm Gel..gram., 1 GRAM TOP QID PRN for PAIN, (Reported) APPLY TO RIGHT SHOULDER Docusate Sodium (Stool Softener) 100 Mg Capsule, 100 MG PO BID PRN for CONSTIPATION, (Reported) Furosemide (Furosemide) 20 Mg Tablet, 20 MG PO DAILY PRN for EDEMA, (Reported) Hydrocodone/Acetaminophen (Hydrocodone-Acetamin 5-325 mg) 1 Each Tablet, 2 TAB PO QID PRN for PAIN, (Reported) Sulfamethoxazole/Trimethoprim (Bactrim Ds Tablet) 1 Each Tablet, 1 TAB PO BID PRN for UTI, (Reported) Allergies Coded Allergies: cephalexin (Verified Allergy, Severe, made his face peel, 11/04/20) procaine (Verified Allergy, Severe, difficulty breathing, 02/04/20) Penicillins (Verified Allergy, Intermediate, swelling, 02/04/20) JOSUE MEAD MD Mar 19, 2021 11:10
[2021-03-19 11:19] LABS: ALBUMIN 2.1 GM/DL (3.2-5.2); ALT/SGPT 21 U/L (12-78); BILIRUBIN,TOTAL 1.1 MG/DL (0.2-1.0); BLOOD UREA NITROGEN 42 MG/DL (7-18); CALCIUM LEVEL 6.5 MG/DL (8.8-10.2); CARBON DIOXIDE LEVEL 26 MEQ/L (21-32); CHLORIDE LEVEL 108 MEQ/L (98-107); CREATININE FOR GFR 0.92 MG/DL (0.70-1.30); GLOMERULAR FILTRATION RATE > 60.0 (>35); GLUCOSE, FASTING 120 MG/DL (70-100); POTASSIUM SERUM 3.1 MEQ/L (3.5-5.1); SODIUM LEVEL 140 MEQ/L (136-145); TOTAL PROTEIN 5.8 GM/DL (6.4-8.2)
[2021-03-19] MEDS: bisoproloL fumarate 10 MG TAB PO SCH (12:05)
[2021-03-19] MEDS ORDERED: propofoL 200 MG/20 ML VIAL As Ordered ONE (14:00)
[2021-03-19] MEDS ORDERED: LIDOCAINE 2% 100MG/5ML SDV (FOR ANES.) As Ordered ONE (14:00)
--- NOTE | 2021-03-19 14:50 | ROOR ---
Patient Name: Augie Samano Procedure Date: 03/19/2021 2:18 PM Date of : 1940 Age: 80 Room: Main OR Gender: Male Note Status: Finalized Procedure: Upper GI endoscopy Indications: Melena Providers: Wade Mallory MD Referring MD: Jefry Alonzo MD Requesting Provider: Medicines: Monitored Anesthesia Care Complications: No immediate complications. Procedure: Pre-Anesthesia Assessment: - Prior to the procedure, a History and Physical was performed, and patient medications and allergies were reviewed. The patient is unable to give consent secondary to the patient being legally incompetent to consent. The risks and benefits of the procedure and the sedation options and risks were discussed with the patient's spouse. All questions were answered and informed consent was obtained. Patient identification and proposed procedure were verified by the nurse in the pre-procedure area in the endoscopy suite. Mental Status Examination: alert but confused. Airway Examination: normal oropharyngeal airway and neck mobility. Respiratory Examination: clear to auscultation. CV Examination: normal. Prophylactic Antibiotics: The patient does not require prophylactic antibiotics. Prior Anticoagulants: The patient has taken no previous anticoagulant or antiplatelet agents. ASA Grade Assessment: III - A patient with severe systemic disease. After reviewing the risks and benefits, the patient was deemed in satisfactory condition to undergo the procedure. The anesthesia plan was to use monitored anesthesia care (MAC). Immediately prior to administration of medications, the patient was re-assessed for adequacy to receive sedatives. The heart rate, respiratory rate, oxygen saturations, blood pressure, adequacy of pulmonary ventilation, and response to care were monitored throughout the procedure. The physical status of the patient was re-assessed after the procedure. The Endoscope was introduced through the mouth, and advanced to the duodenal bulb. The upper GI endoscopy was accomplished without difficulty. The patient tolerated the procedure fairly well. Findings: The examined esophagus was normal. Diffuse mild inflammation characterized by adherent blood, congestion (edema) and erythema was found in the gastric body. Estimated blood loss: none. The first portion of the duodenum was normal. Impression: - Normal esophagus. - Acute gastritis. - Normal first portion of the duodenum. - No specimens collected. Recommendation: - Admit the patient to hospital [facility] for ongoing care. - Clear liquid diet today. - Use Protonix (pantoprazole) 40 mg IV daily today. Procedure Code(s): --- Professional --- 93996, Esophagogastroduodenoscopy, flexible, transoral; diagnostic, including collection of specimen(s) by brushing or washing, when performed (separate procedure) Diagnosis Code(s): --- Professional --- K29.00, Acute gastritis without bleeding K92.1, Melena (includes Hematochezia) CPT copyright 2019 [employer]. All rights reserved. The codes documented in this report are preliminary and upon resource center teacher review may be revised to meet current compliance requirements. Attending Participation: I personally performed the entire procedure. Wade Mallory MD Wade Mallory MD 03/19/2021 2:50:20 PM Electronically signed by Wade Mallory MD Number of Addenda: 0 Note Initiated On: 03/19/2021 2:18 PM Estimated Blood Loss: Estimated blood loss: none.
[2021-03-19] MEDS: CETIRIZINE (ZyrTEC) 10 MG TAB PO SCH (15:21)
[2021-03-19 15:43] LABS: MAGNESIUM LEVEL 1.1 MG/DL (1.8-2.4)
[2021-03-19] MEDS ORDERED: LR 1,000 ML IV SCH (15:45)
[2021-03-19] MEDS ORDERED: fentaNYL 100 MCG/2 ML INJECTION (J3010) IV PRN (15:45)
[2021-03-19] MEDS ORDERED: MAG SULF 1GM/100ML (MAG RUN) 1 GM in IV 1 EA IV ONE (16:00)
[2021-03-19] MEDS ORDERED: GLUCOSE 4GM CHEW TABLET PO PRN (17:15)
[2021-03-19] MEDS ORDERED: DEXTROSE 50% 50 ML SYRINGE IV PRN (17:15)
[2021-03-19] MEDS ORDERED: GLUCAGON INJ 1MG VIAL SC PRN (17:15)
[2021-03-19] MEDS: HumaLOG INSULIN (NovoLOG) PER UNIT SC SCH ×2 (17:30→21:00)
[2021-03-19] MEDS ORDERED: POTASSIUM CHLORIDE 10 MEQ SR TABLET PO ONE (18:25)
[2021-03-19] MEDS: ACETAMINOPHEN TAB 650MG DOSE (2X325MG) PO PRN (18:41)
[2021-03-19 20:03] LABS: MEAN CORPUSCULAR HEMOGLOBIN 30.6 pg (27.0-33.0); MEAN CORPUSCULAR HGB CONC 33.8 g/dl (32.0-36.5); MEAN CORPUSCULAR VOLUME 90.4 fl (80.0-96.0); RED BLOOD COUNT 2.19 10^6/uL (4.30-6.10); WHITE BLOOD COUNT 6.3 10^3/uL (4.0-10.0)
[2021-03-19 20:05] LABS: HEMATOCRIT 19.8 % (42.0-52.0); HEMOGLOBIN 6.7 g/dl (13.5-17.5); PLATELET COUNT, AUTOMATED 26 10^3/uL (150-450)
[2021-03-19 20:26] LABS: BLOOD UREA NITROGEN 39 MG/DL (7-18); CALCIUM LEVEL 6.3 MG/DL (8.8-10.2); CARBON DIOXIDE LEVEL 26 MEQ/L (21-32); CHLORIDE LEVEL 108 MEQ/L (98-107); GLOMERULAR FILTRATION RATE > 60.0 (>35); GLUCOSE, FASTING 184 MG/DL (70-100); MAGNESIUM LEVEL 1.3 MG/DL (1.8-2.4); POTASSIUM SERUM 3.2 MEQ/L (3.5-5.1); SODIUM LEVEL 141 MEQ/L (136-145)
[2021-03-19] MEDS: risperiDONE 1 MG TAB PO SCH (21:22)
[2021-03-20] VITALS (12 sets, daily range): BP systolic 89–147; BP diastolic 48–62
[2021-03-20 06:11] LABS: BASO % 0.2 % (0.0-1.0); EOS % 0.7 % (0.0-3.0); LYMPH % 23.7 % (24.0-44.0); MEAN CORPUSCULAR HEMOGLOBIN 30.3 pg (27.0-33.0); MEAN CORPUSCULAR HGB CONC 33.5 g/dl (32.0-36.5); MEAN CORPUSCULAR VOLUME 90.5 fl (80.0-96.0); MONO # 0.2 10^3/uL (0.0-0.8); MONO % 5.9 % (2.0-8.0); NEUTROPHILS # 2.8 10^3/uL (1.5-8.5); NEUTROPHILS % 68.5 % (36.0-66.0); RED BLOOD COUNT 2.31 10^6/uL (4.30-6.10); WHITE BLOOD COUNT 4.1 10^3/uL (4.0-10.0)
[2021-03-20 06:30] LABS: ALT/SGPT 22 U/L (12-78); BILIRUBIN,TOTAL 0.6 MG/DL (0.2-1.0); BLOOD UREA NITROGEN 36 MG/DL (7-18); CALCIUM LEVEL 6.7 MG/DL (8.8-10.2); CARBON DIOXIDE LEVEL 26 MEQ/L (21-32); CHLORIDE LEVEL 112 MEQ/L (98-107); CREATININE FOR GFR 0.83 MG/DL (0.70-1.30); GLOMERULAR FILTRATION RATE > 60.0 (>35); GLUCOSE, FASTING 101 MG/DL (70-100); POTASSIUM SERUM 3.3 MEQ/L (3.5-5.1); SODIUM LEVEL 145 MEQ/L (136-145); TOTAL PROTEIN 5.2 GM/DL (6.4-8.2)
[2021-03-20 07:11] LABS: PLATELET COUNT, AUTOMATED 5 10^3/uL (150-450)
[2021-03-20 07:12] LABS: HEMATOCRIT 20.9 % (42.0-52.0)
[2021-03-20] MEDS: HumaLOG INSULIN (NovoLOG) PER UNIT SC SCH ×4 (07:30→20:54)
[2021-03-20 07:56] LABS: MAGNESIUM LEVEL 1.3 MG/DL (1.8-2.4)
[2021-03-20] MEDS: PANTOPRAZOLE 40MG VIAL (C9113 PER 1) IV SCH (08:27)
[2021-03-20] MEDS: TAVALISSE PO SCH ×2 (08:27→20:58)
[2021-03-20] MEDS: ALPRAZolam 0.25 MG TAB PO SCH ×2 (08:28→20:56)
[2021-03-20] MEDS: bisoproloL fumarate 10 MG TAB PO SCH (08:28)
[2021-03-20] MEDS: levETIRAcetam 250MG TABLET (KEPPRA) PO SCH ×2 (08:28→20:56)
[2021-03-20] MEDS: CETIRIZINE (ZyrTEC) 10 MG TAB PO SCH (08:28)
[2021-03-20] MEDS ORDERED: POTASSIUM CHLORIDE 10 MEQ SR TABLET PO ONE (09:00)
--- NOTE | 2021-03-20 09:34 | IPNPDOC ---
Text Note Date of Service The patient was seen on 03/20/21. NOTE Subjective: Patient seen and examined at bedside. No acute overnight events reported. Yesterday evening he had 9 beats of VT, asymptomatic. Patient has no new medical complaints this morning. Objective: VITAL SIGNS: See below General: NAD, lying comfortably in bed HEENT: NC/AT, EOMI Lungs: CTA B/L Heart: +S1S2, RRR, systolic murmur Abd: soft, NT, +BS Ext: chronic venous stasis changes A/P: 80 yo male presents for one day history of black stools, with dizziness and light-headedness. Admitted for symptomatic acute blood loss anemia, likely secondary to gi bleed, with PMHx of ITP, colon cancer s/p hemicolectomy. #ABLA - s/p 7 units PRBC - transfuse to keep Hg >8 - surgical c/s appreciated - severe gastritis - continue PPI, carafate - regular diet #ITP - heme c/s appreciated - s/p IVIG 1g/kg qd x 2 days - patient refusing dexamethasone due to severe yeast infection from previous treatment - s/p 3 units Plt #electrolyte abnormalities - hypokalemia, hypomagenesemia - continue to follow and replete as needed #anxiety - continue 0.25 xanax BID as per home dosing #stage I [id number] carcinoma of the ascending colon status post right hemicolectomy Dr. Carvalho 2017 # HTN/HTN heart disease # HFpEF - last echo on record 2019 #DM - sliding scale insulin #GERD #aortic valve stenosis s/p bioprosthetic aortic valve replacement #carotid artery disease s/p left CEA 2007 #CAD/stents #HLD #spinal stenosis #hx endocarditis with septic emboli #DVT prophylaxis - mechanical Code Status: DNR/DNI Dispo: pending stabilization of anemia, clinical improvement; extensive discussion with today, all questions answered VS,Justen, I+O VS, Kuldipe, I+O Laboratory Tests 03/19/21 10:31 03/19/21 19:44 03/20/21 05:12 Vital Signs Date Time Temp Pulse Resp B/P (MAP) Pulse Ox O2 Delivery O2 Flow Rate FiO2 03/20/21 08:28 74 93/55 03/20/21 07:26 97.5 22 95 Room Air 03/19/21 21:15 24.0 I&O- Last 24 Hours up to 6 AM 03/20/21 06:00 Intake Total 2660 ml Output Total 1825 ml Balance 835 ml DEJAH CR MD March 20, 2021 09:34
[2021-03-20] MEDS ORDERED: MAG SULF 1GM/100ML (MAG RUN) 1 GM in IV 1 EA IV ONE ×2 (10:00→18:00)
[2021-03-20] MEDS: ACETAMINOPHEN TAB 650MG DOSE (2X325MG) PO PRN ×2 (14:28→21:53)
[2021-03-20 16:26] LABS: HEMATOCRIT 26.5 % (42.0-52.0); HEMOGLOBIN 8.9 g/dl (13.5-17.5); MEAN CORPUSCULAR HEMOGLOBIN 30.3 pg (27.0-33.0); MEAN CORPUSCULAR HGB CONC 33.6 g/dl (32.0-36.5); MEAN CORPUSCULAR VOLUME 90.1 fl (80.0-96.0); RED BLOOD COUNT 2.94 10^6/uL (4.30-6.10); WHITE BLOOD COUNT 4.5 10^3/uL (4.0-10.0)
[2021-03-20 16:29] LABS: PLATELET COUNT, AUTOMATED 3 10^3/uL (150-450)
[2021-03-20 16:32] LABS: PLTBLUE- EDTA FREE CALC 4 K/mm3 (172-450); PLTBLUE- EDTA FREE MACHINE 4 10^3/uL (172-450)
[2021-03-20 17:00] LABS: MAGNESIUM LEVEL 1.5 MG/DL (1.8-2.4); POTASSIUM SERUM 4.1 MEQ/L (3.5-5.1)
[2021-03-20] MEDS: risperiDONE 2 MG TAB PO SCH (20:56)
[2021-03-21] VITALS (16 sets, daily range): BP systolic 100–135; BP diastolic 51–61
[2021-03-21 06:55] LABS: HEMATOCRIT 22.4 % (42.0-52.0); HEMOGLOBIN 7.3 g/dl (13.5-17.5); MEAN CORPUSCULAR HEMOGLOBIN 30.4 pg (27.0-33.0); MEAN CORPUSCULAR HGB CONC 32.6 g/dl (32.0-36.5); MEAN CORPUSCULAR VOLUME 93.3 fl (80.0-96.0); WHITE BLOOD COUNT 3.4 10^3/uL (4.0-10.0)
[2021-03-21 07:17] LABS: ALBUMIN 1.9 GM/DL (3.2-5.2); ALT/SGPT 21 U/L (12-78); BILIRUBIN,TOTAL 0.3 MG/DL (0.2-1.0); BLOOD UREA NITROGEN 37 MG/DL (7-18); CALCIUM LEVEL 7.3 MG/DL (8.8-10.2); CARBON DIOXIDE LEVEL 26 MEQ/L (21-32); CHLORIDE LEVEL 116 MEQ/L (98-107); CREATININE FOR GFR 0.74 MG/DL (0.70-1.30); GLOMERULAR FILTRATION RATE > 60.0 (>35); GLUCOSE, FASTING 123 MG/DL (70-100); MAGNESIUM LEVEL 1.9 MG/DL (1.8-2.4); POTASSIUM SERUM 3.9 MEQ/L (3.5-5.1); SODIUM LEVEL 146 MEQ/L (136-145); TOTAL PROTEIN 4.5 GM/DL (6.4-8.2)
[2021-03-21] MEDS: HumaLOG INSULIN (NovoLOG) PER UNIT SC SCH ×4 (07:30→21:00)
[2021-03-21 07:49] LABS: PLATELET COUNT, AUTOMATED 1 10^3/uL (150-450)
[2021-03-21] MEDS: levETIRAcetam 250MG TABLET (KEPPRA) PO SCH ×2 (08:23→21:11)
[2021-03-21] MEDS: PANTOPRAZOLE 40MG VIAL (C9113 PER 1) IV SCH ×2 (08:23→21:10)
[2021-03-21] MEDS: TAVALISSE PO SCH ×2 (08:23→21:13)
[2021-03-21] MEDS: ALPRAZolam 0.25 MG TAB PO SCH ×2 (08:23→21:11)
[2021-03-21] MEDS: CETIRIZINE (ZyrTEC) 10 MG TAB PO SCH (08:23)
[2021-03-21] MEDS: bisoproloL fumarate 10 MG TAB PO SCH (08:23)
--- NOTE | 2021-03-21 09:15 | IPNPDOC ---
Text Note Date of Service The patient was seen on 03/21/21. NOTE Subjective: Patient seen and examined at bedside. No acute overnight events reported. Patient has no new medical complaints this morning. Objective: VITAL SIGNS: See below General: NAD, lying comfortably in bed HEENT: NC/AT, EOMI Lungs: CTA B/L Heart: +S1S2, RRR, systolic murmur Abd: soft, NT, +BS Ext: chronic venous stasis changes A/P: 80 yo male presents for one day history of black stools, with dizziness and light-headedness. Admitted for symptomatic acute blood loss anemia, likely secondary to gi bleed, with PMHx of ITP, colon cancer s/p hemicolectomy. #ABLA - still anemic - transfuse 2 PRBC today - s/p 7 units PRBC - transfuse to keep Hg >8 - surgical c/s appreciated - severe gastritis - switched to BID PPI, carafate - carb consistent diet #ITP - heme c/s appreciated - s/p IVIG 1g/kg qd x 2 days - patient refusing dexamethasone due to severe yeast infection from previous treatment - s/p 3 units Plt - transfuse 1 unit Plt today #electrolyte abnormalities - hypokalemia, hypomagenesemia - continue to follow and replete as needed #anxiety - continue 0.25 xanax BID as per home dosing #stage I [id number] carcinoma of the ascending colon status post right hemicolectomy Dr. Carvalho 2017 # HTN/HTN heart disease # HFpEF - last echo on record 2019 #DM - sliding scale insulin #GERD #aortic valve stenosis s/p bioprosthetic aortic valve replacement #carotid artery disease s/p left CEA 2007 #CAD/stents #HLD #spinal stenosis #hx endocarditis with septic emboli #DVT prophylaxis - mechanical Code Status: DNR/DNI Dispo: pending stabilization of anemia - transfuse 2 units PRBC today, 1 Plt today; extensive discussion with today, all questions answered FAIZA,Justen, I+O VS, Justen, I+O Laboratory Tests 03/20/21 16:15 03/21/21 06:25 Vital Signs Date Time Temp Pulse Resp B/P (MAP) Pulse Ox O2 Delivery O2 Flow Rate FiO2 03/21/21 08:23 71 106/52 03/21/21 06:55 97.7 18 98 Room Air 03/19/21 21:15 24.0 I&O- Last 24 Hours up to 6 AM 03/21/21 06:00 Intake Total 1930 ml Output Total 1575 ml Balance 355 ml DEJAH CR MD March 21, 2021 09:15
[2021-03-21] MEDS: SUCRALFATE 1 GM TAB PO SCH ×3 (13:42→21:11)
[2021-03-21] MEDS: ACETAMINOPHEN TAB 650MG DOSE (2X325MG) PO PRN ×2 (13:42→21:11)
[2021-03-21] MEDS ORDERED: DICLOFENAC 1% TOP PRN (15:25)
[2021-03-21 19:28] LABS: HEMOGLOBIN 8.7 g/dl (13.5-17.5); MEAN CORPUSCULAR HEMOGLOBIN 30.5 pg (27.0-33.0); MEAN CORPUSCULAR HGB CONC 33.5 g/dl (32.0-36.5); MEAN CORPUSCULAR VOLUME 91.2 fl (80.0-96.0); RED BLOOD COUNT 2.85 10^6/uL (4.30-6.10); WHITE BLOOD COUNT 4.9 10^3/uL (4.0-10.0)
[2021-03-21 19:31] LABS: PLATELET COUNT, AUTOMATED 10 10^3/uL (150-450)
[2021-03-21] MEDS: risperiDONE 2 MG TAB PO SCH (21:12)
[2021-03-22] VITALS: BP 108/54
[2021-03-22 04:00] VITALS: BP 116/58
[2021-03-22 05:59] LABS: HEMATOCRIT 25.1 % (42.0-52.0); HEMOGLOBIN 8.1 g/dl (13.5-17.5); MEAN CORPUSCULAR HEMOGLOBIN 30.1 pg (27.0-33.0); MEAN CORPUSCULAR HGB CONC 32.3 g/dl (32.0-36.5); MEAN CORPUSCULAR VOLUME 93.3 fl (80.0-96.0); RED BLOOD COUNT 2.69 10^6/uL (4.30-6.10); WHITE BLOOD COUNT 4.5 10^3/uL (4.0-10.0)
[2021-03-22 06:01] LABS: PLATELET COUNT, AUTOMATED 7 10^3/uL (150-450)
[2021-03-22 06:23] LABS: BLOOD UREA NITROGEN 36 MG/DL (7-18); CALCIUM LEVEL 8.1 MG/DL (8.8-10.2); CARBON DIOXIDE LEVEL 24 MEQ/L (21-32); CHLORIDE LEVEL 112 MEQ/L (98-107); CREATININE FOR GFR 0.72 MG/DL (0.70-1.30); GLOMERULAR FILTRATION RATE > 60.0 (>35); GLUCOSE, FASTING 144 MG/DL (70-100); POTASSIUM SERUM 4.2 MEQ/L (3.5-5.1); SODIUM LEVEL 141 MEQ/L (136-145)
[2021-03-22] MEDS: ACETAMINOPHEN TAB 650MG DOSE (2X325MG) PO PRN (07:48)
[2021-03-22] MEDS: SUCRALFATE 1 GM TAB PO SCH ×4 (07:48→20:09)
[2021-03-22] MEDS: HumaLOG INSULIN (NovoLOG) PER UNIT SC SCH ×4 (07:49→20:10)
[2021-03-22 07:55] VITALS: BP 106/56
[2021-03-22] MEDS: PANTOPRAZOLE 40MG VIAL (C9113 PER 1) IV SCH ×2 (08:54→20:08)
[2021-03-22] MEDS: ALPRAZolam 0.25 MG TAB PO SCH ×2 (08:54→20:08)
[2021-03-22] MEDS: levETIRAcetam 250MG TABLET (KEPPRA) PO SCH ×2 (08:54→20:09)
[2021-03-22] MEDS: CETIRIZINE (ZyrTEC) 10 MG TAB PO SCH (08:54)
[2021-03-22] MEDS: bisoproloL fumarate 10 MG TAB PO SCH (08:55)
[2021-03-22] MEDS: TAVALISSE PO SCH ×2 (08:55→20:11)
--- NOTE | 2021-03-22 09:04 | IPNPDOC ---
Text Note Date of Service The patient was seen on 03/22/21. NOTE Subjective: Patient seen and examined at bedside. Overnight patient had short episode of NSVT, asymptomatic, VSS. Patient has no new medical complaints this morning. Informed patient of colonoscopy on Monday, he is hoping it can be done earlier. He states he is anxious to go back home. Objective: VITAL SIGNS: See below General: NAD, lying comfortably in bed HEENT: NC/AT, EOMI Lungs: CTA B/L Heart: +S1S2, RRR, systolic murmur Abd: soft, NT, +BS Ext: chronic venous stasis changes A/P: 80 yo male presents for one day history of black stools, with dizziness and light-headedness. Admitted for symptomatic acute blood loss anemia, likely secondary to gi bleed, with PMHx of ITP, colon cancer s/p hemicolectomy. #ABLA - still anemic - small drop in H/H from yesterday - s/p 9 units PRBC - transfuse to keep Hg >8 - surgical c/s appreciated - severe gastritis on endoscope - switched to BID PPI, carafate - plan for colonoscopy on Monday #ITP - heme c/s appreciated - s/p IVIG 1g/kg qd x 2 days - continue Tavalisse 150 BID - patient/ refusing dexamethasone due to severe yeast infection from previous treatment - s/p 4 units Plt #electrolyte abnormalities - hypokalemia, hypomagenesemia - continue to follow and replete as needed #anxiety - continue 0.25 xanax BID as per home dosing #stage I [id number] carcinoma of the ascending colon status post right hemicol ectomy Dr. Carvalho 2017 # HTN/HTN heart disease # HFpEF - last echo on record 2018 #DM - sliding scale insulin #GERD #aortic valve stenosis s/p bioprosthetic aortic valve replacement #carotid artery disease s/p left CEA 2007 #CAD/stents #HLD #spinal stenosis #hx endocarditis with septic emboli #DVT prophylaxis - mechanical Code Status: DNR/DNI Dispo: pending stabilization of anemia, colonoscopy on Monday, updated with plan of care VS,Fishbone, I+O VS, Fishbone, I+O Laboratory Tests 03/21/21 19:18 03/22/21 05:36 Vital Signs Date Time Temp Pulse Resp B/P (MAP) Pulse Ox O2 Delivery O2 Flow Rate FiO2 03/22/21 08:55 80 106/56 03/22/21 07:55 96.7 22 98 Room Air 03/19/21 21:15 24.0 I&O- Last 24 Hours up to 6 AM 03/22/21 06:00 Intake Total 1772 ml Output Total 900 ml Balance 872 ml DEJAH CR MD March 22, 2021 09:04
--- NOTE | 2021-03-22 10:01 | IPNPDOC ---
Text Note Date of Service The patient was seen on 03/22/21. NOTE Course over the weekend reviewed, discussed with Dr. Alonzo still reporting black?brownish (?marroon) colored stools over the weekend, still with some dips in his hgb and hct. Plt still below 10. Patient denies any abdominal pain I did an upper endoscopy last Monday due to the reports of black stool. There are some punctate petechiae, gastritis most likely secondary to the low platelets but no active bleeding to explain the continued black/maroon colored stools that he is passing. I spoke to his that afternoon and she reports that he had similar circumstances back in 2018 for which she had a colonoscopy done that found the colon cancer. The colon cancer on pathology seems to be an early stage. Due to his mental health, surveillance colonoscopy was decided not to be done unless he absolutely needs it. Due to persistence passage of black/maroon stool, a colon source may be feasible though my guess is it over the same as the findings in the upper endoscopy with punctate petechiae causing the bleeding which is not amenable to endoscopic or surgical but still l ocalizing the source of the medial family to predict likelihood that this. Were not. I will schedule him for colonoscopy plus or minus endoscopy on Monday. I will slow prep him and give him Dulcolax and MiraLAX today and tomorrow and start it bowel prep tomorrow evening. Full liquids today and clear liquids tomorrow. VS,Fishbone, I+O VS, Fishbone, I+O Laboratory Tests 03/21/21 19:18 03/22/21 05:36 Vital Signs Date Time Temp Pulse Resp B/P (MAP) Pulse Ox O2 Delivery O2 Flow Rate FiO2 03/22/21 08:55 80 106/56 03/22/21 07:55 96.7 22 98 Room Air 03/19/21 21:15 24.0 I&O- Last 24 Hours up to 6 AM 03/22/21 05:59 Intake Total 1772 ml Output Total 900 ml Balance 872 ml JOSUE MEAD MD March 22, 2021 10:01
[2021-03-22] MEDS: BISACODYL 5 MG TAB PO SCH (10:51)
[2021-03-22] MEDS: MIRALAX *UNIT DOSE* 17GM PACKET PO SCH ×2 (10:51→20:08)
[2021-03-22 12:00] VITALS: BP 115/56
[2021-03-22] MEDS ORDERED: BACTRIM 160MG/800MG DS TAB PO PRN (14:50)
[2021-03-22] MEDS: PERCOCET 5MG/325MG TAB PO PRN (15:45)
[2021-03-22 16:00] VITALS: BP 112/59
[2021-03-22] MEDS ORDERED: BACTRIM 160MG/800MG DS TAB PO SCH (17:30)
[2021-03-22] MEDS: BACTRIM 160MG/800MG DS TAB PO SCH (17:53)
[2021-03-22 19:19] LABS: HEMATOCRIT 25.7 % (42.0-52.0); HEMOGLOBIN 8.5 g/dl (13.5-17.5); MEAN CORPUSCULAR HEMOGLOBIN 30.5 pg (27.0-33.0); MEAN CORPUSCULAR HGB CONC 33.1 g/dl (32.0-36.5); MEAN CORPUSCULAR VOLUME 92.1 fl (80.0-96.0); RED BLOOD COUNT 2.79 10^6/uL (4.30-6.10); WHITE BLOOD COUNT 6.2 10^3/uL (4.0-10.0)
[2021-03-22 19:42] LABS: PLATELET COUNT, AUTOMATED 2 10^3/uL (150-450)
[2021-03-22 20:00] VITALS: BP 112/59
[2021-03-22] MEDS: risperiDONE 2 MG TAB PO SCH (20:09)
[2021-03-23] VITALS (12 sets, daily range): BP systolic 90–119; BP diastolic 46–56
[2021-03-23 05:40] LABS: HEMATOCRIT 22.2 % (42.0-52.0); HEMOGLOBIN 7.1 g/dl (13.5-17.5); MEAN CORPUSCULAR HEMOGLOBIN 30.5 pg (27.0-33.0); MEAN CORPUSCULAR VOLUME 95.3 fl (80.0-96.0); RED BLOOD COUNT 2.33 10^6/uL (4.30-6.10); WHITE BLOOD COUNT 5.2 10^3/uL (4.0-10.0)
[2021-03-23 05:43] LABS: PLATELET COUNT, AUTOMATED 2 10^3/uL (150-450)
[2021-03-23 05:45] LABS: BLOOD UREA NITROGEN 29 MG/DL (7-18); CALCIUM LEVEL 8.3 MG/DL (8.8-10.2); CARBON DIOXIDE LEVEL 24 MEQ/L (21-32); CHLORIDE LEVEL 111 MEQ/L (98-107); CREATININE FOR GFR 0.75 MG/DL (0.70-1.30); GLOMERULAR FILTRATION RATE > 60.0 (>35); GLUCOSE, FASTING 131 MG/DL (70-100); POTASSIUM SERUM 3.9 MEQ/L (3.5-5.1); SODIUM LEVEL 142 MEQ/L (136-145)
[2021-03-23] MEDS: HumaLOG INSULIN (NovoLOG) PER UNIT SC SCH ×4 (07:30→21:00)
[2021-03-23] MEDS: SUCRALFATE 1 GM TAB PO SCH ×4 (07:30→20:55)
[2021-03-23] MEDS ORDERED: NS 1,000 ML IV SCH (07:35)
[2021-03-23] MEDS: ALPRAZolam 0.25 MG TAB PO SCH ×2 (07:59→20:55)
[2021-03-23] MEDS: CETIRIZINE (ZyrTEC) 10 MG TAB PO SCH (07:59)
[2021-03-23] MEDS: bisoproloL fumarate 10 MG TAB PO SCH (07:59)
[2021-03-23] MEDS: levETIRAcetam 250MG TABLET (KEPPRA) PO SCH ×2 (07:59→20:55)
[2021-03-23] MEDS ORDERED: MAG SULF 1GM/100ML (MAG RUN) 1 GM in IV 1 EA IV SCH (08:00)
[2021-03-23] MEDS: BACTRIM 160MG/800MG DS TAB PO SCH ×2 (08:00→20:55)
[2021-03-23] MEDS: TAVALISSE PO SCH ×2 (08:00→20:56)
[2021-03-23] MEDS: MIRALAX *UNIT DOSE* 17GM PACKET PO SCH ×2 (08:01→20:56)
[2021-03-23] MEDS: PANTOPRAZOLE 40MG VIAL (C9113 PER 1) IV SCH ×2 (08:01→20:56)
[2021-03-23] MEDS: BISACODYL 5 MG TAB PO SCH (08:01)
[2021-03-23] MEDS ORDERED: POTASSIUM CHLORIDE 10 MEQ SR TABLET PO ONE (09:00)
[2021-03-23] MEDS ORDERED: GOLYTELY SOLN 4000 ML BTL PO ONE (11:00)
[2021-03-23] MEDS ORDERED: LIDOCAINE 1% MDV 20ML VIAL As Ordered ONE (16:01)
[2021-03-23] MEDS ORDERED: SODIUM CHLORIDE 0.9% INJ 10 ML SYR IV PRN (20:05)
[2021-03-23] MEDS: risperiDONE 2 MG TAB PO SCH (20:56)
--- NOTE | 2021-03-23 21:04 | IPNPDOC ---
Subjective Date Seen The patient was seen on 03/23/21. Subjective Chief Complaint/HPI Mr. Samano is an 80 year old male with refractory idiopathic thrombocytopenic purpura and colon carcinoma s/p right hemicolectomy who presents with black tarry stools. This morning, he was agitated. He lost his IV and did not want more pokes. He had refused several medications. Requested PICC line to be placed as he will need transfusions. This afternoon, he was seen with his . Patient was more pleasant. Denies chest pain, dyspnea, or abdominal pain. Reports fatigue. Objective Physical Examination General Exam: Positive: Cooperative Eye Exam: Negative: Sclera icteric Neck Exam: Positive: Supple Chest Exam: Positive: Clear to auscultation Heart Exam: Positive: Rate Normal, Regular Rhythm Abdomen Exam: Positive: Normal bowel sounds, Soft; Negative: Tenderness Extremity Exam: Positive: Edema Neuro Exam: Positive: Normal Speech Psych Exam: Positive: Other (More lethargic) Assessment /Plan Assessment Mr. Samano is an 80 year old male with refractory idiopathic thrombocytopenic purpura and colon carcinoma s/p right hemicolectomy who presents with black tarry stools. EGD was performed, demonstrated severe gastritis. General surgery to proceed with possible colonoscopy tomorrow. Otherwise, will repeat hemoglobin and platelets and needed. Plan/VTE VTE Prophylaxis Ordered?: Yes Disposition 1. Acute blood loss anemia -EGD demonstrated severe gastritis, on BID PPI and carafate -Possible colonoscopy tomorrow -Otherwise continue trending CBC and transfusing blood as needed 2. Refectory ITP -Heme consulted, recommendations appreciated -S/P IVIG 1g/kg qD for 2 days - refused dexamethasone due to history of severe yeast infection -Continue Tavalisse 150mg BID 3. Hypokalemia and hypomagnesemia -Continue to follow and trend 4. Anxiety -Continue Xanax 5. DM -Continue sliding scale insulin 6. AMS -Possibly due to UTI -Pending urine culture -Continue Bactrim 7. DVT ppx -TEDs Disposition: Pending colonoscopy on Monday. Pending stability of H&H. Patient will need to follow up outpatient with Heme/Onc about thrombocytopenia VS, I&O, 24H, Fishbone Vital Signs/I&O Vital Signs Date Time Temp Pulse Resp B/P (MAP) Pulse Ox O2 Delivery O2 Flow Rate FiO2 03/23/21 20:22 98.1 87 18 101/52 99 Room Air 03/19/21 21:15 24.0 I&O- Last 24 Hours up to 6 AM 03/23/21 06:00 Intake Total 300 ml Output Total 2500 ml Balance -2200 ml Laboratory Data 24H LABS Laboratory Tests 2 03/23/21 05:07: Nucleated Red Blood Cells % (auto) 1.0H, Immature Platelet Fraction 14.4H, Anion Gap 7L, Glomerular Filtration Rate > 60.0, Calcium Level 8.3L 03/23/21 18:19: Bedside Glucose (Misc Panel) 154H CBC/BMP Laboratory Tests 03/23/21 05:07 Microbiology Microbiology 03/22/21 Urine Culture, Received Pending HILARY MAYNARD DO March 23, 2021 21:04
[2021-03-23] MEDS: PERCOCET 5MG/325MG TAB PO PRN (21:39)
[2021-03-24] VITALS (22 sets, daily range): BP systolic 88–147; BP diastolic 50–91
[2021-03-24] MEDS: SODIUM CHLORIDE 0.9% INJ 10 ML SYR IV SCH ×2 (06:00→17:20)
[2021-03-24] MEDS: SUCRALFATE 1 GM TAB PO SCH ×5 (07:30→21:09)
[2021-03-24] MEDS: HumaLOG INSULIN (NovoLOG) PER UNIT SC SCH ×4 (07:30→20:58)
[2021-03-24 07:57] LABS: HEMATOCRIT 21.4 % (42.0-52.0); MEAN CORPUSCULAR HEMOGLOBIN 30.4 pg (27.0-33.0); MEAN CORPUSCULAR HGB CONC 32.2 g/dl (32.0-36.5); MEAN CORPUSCULAR VOLUME 94.3 fl (80.0-96.0); RED BLOOD COUNT 2.27 10^6/uL (4.30-6.10); WHITE BLOOD COUNT 4.5 10^3/uL (4.0-10.0)
[2021-03-24 08:00] LABS: HEMOGLOBIN 6.9 g/dl (13.5-17.5); PLATELET COUNT, AUTOMATED 2 10^3/uL (150-450)
[2021-03-24] MEDS ORDERED: DOXYCYCLINE HYCLATE 100 MG in D5W MINI-BAG PLUS 100 ML IV SCH (08:00)
[2021-03-24 08:12] LABS: BLOOD UREA NITROGEN 31 MG/DL (7-18); CARBON DIOXIDE LEVEL 26 MEQ/L (21-32); CHLORIDE LEVEL 114 MEQ/L (98-107); CREATININE FOR GFR 0.82 MG/DL (0.70-1.30); GLOMERULAR FILTRATION RATE > 60.0 (>35); GLUCOSE, FASTING 110 MG/DL (70-100); MAGNESIUM LEVEL 1.8 MG/DL (1.8-2.4); POTASSIUM SERUM 3.8 MEQ/L (3.5-5.1); SODIUM LEVEL 145 MEQ/L (136-145)
[2021-03-24] MEDS: TAVALISSE PO SCH ×3 (08:51→21:11)
[2021-03-24] MEDS: CETIRIZINE (ZyrTEC) 10 MG TAB PO SCH ×2 (08:51→09:00)
[2021-03-24] MEDS: PANTOPRAZOLE 40MG VIAL (C9113 PER 1) IV SCH ×2 (08:51→21:10)
[2021-03-24] MEDS: MIRALAX *UNIT DOSE* 17GM PACKET PO SCH ×3 (08:51→21:11)
[2021-03-24] MEDS: levETIRAcetam 250MG TABLET (KEPPRA) PO SCH ×2 (08:51→09:00)
[2021-03-24] MEDS: BISACODYL 5 MG TAB PO SCH ×2 (08:51→09:00)
[2021-03-24] MEDS: ALPRAZolam 0.25 MG TAB PO SCH ×3 (08:51→21:09)
[2021-03-24] MEDS: bisoproloL fumarate 10 MG TAB PO SCH (08:52)
[2021-03-24] MEDS ORDERED: levETIRAcetam INJection 250 MG in D5W MINI-BAG PLUS 100 ML IV SCH (09:00)
[2021-03-24] MEDS: levETIRAcetam INJection 250 MG in D5W 100 ML IV SCH (09:00)
[2021-03-24] MEDS ORDERED: GOLYTELY SOLN 4000 ML BTL PO ONE (11:00)
[2021-03-24 13:35] LABS: BILIRUBIN,TOTAL 0.5 MG/DL (0.2-1.0); LDH LACTATE DEHYDROGENASE 229 U/L (87-241)
--- NOTE | 2021-03-24 16:23 | REP ---
PROCEDURE NAME: PICC LINE INSERTION W/SITERITE CLINICAL INFORMATION: Will need frequent transfusions. COMPARISON: None. PROCEDURE DESCRIPTION: The procedure was performed by DANGELO Staples, under the direct supervision of Dr. Etienne. The risks and benefits of the procedure were explained to the patient and an informed consent was obtained both verbally and written. Directly prior to the start of the procedure a formal time-out was completed in the procedure room. The left basilic vein was localized using ultrasound guidance. The skin was prepped and draped in sterile fashion. Three mL of 1% lidocaine 10 mg/mL was used as a local anesthetic. Using ultrasound guidance the left basilic vein was cannulated, and a 0.018 guidewire was inserted and advanced to the level of SVC using fluoroscopic guidance. The needle was removed and a 5.5 Barbadian dilator and peel-away sheath was inserted over the guidewire. A 5.5 Barbadian dual lumen catheter was cut to a length of 45 cm. The dilator was removed and the catheter was inserted over the guidewire with the tip ending at the level of the SVC. The peel-away sheath was removed and the catheter was flushed with heparinized saline as per hospital protocol. The catheter was affixed to the skin and a sterile dressing was applied. The patient tolerated the procedure well and there were no immediate complications. CONCLUSION: PICC line insertion into the left basilic vein. 0.7 minutes of fluoroscopy time was utilized for this procedure. Some fluoroscopic images are performed with last image hold technology. These images require no additional radiation. <Electronically signed by Meghan Hernandez > 03/24/21 [id number] <Electronically signed by Silvio Etienne > 03/24/21 [id number]
[2021-03-24] MEDS ORDERED: VANCOMYCIN HCL 750 MG, VIAL MATE ADAPTER 1 EACH in NS 250 ML IV ONE ×3 (16:45→19:00)
[2021-03-24] MEDS: dexameTHASONE 20MG/5ML VIAL (J1100 PER 1MG) IV SCH (17:19)
[2021-03-24 17:58] LABS: INR 1.01; PROTHROMBIN TIME 13.5 SECONDS (12.5-14.3)
[2021-03-24 17:59] LABS: PARTIAL THROMBOPLASTIN TIME 27.3 SECONDS (24.2-38.5)
--- NOTE | 2021-03-24 20:28 | IPNPDOC ---
Subjective Date Seen The patient was seen on 03/24/21. Subjective Chief Complaint/HPI Mr. Samano is an 80 year old male with refractory idiopathic thrombocytopenic purpura and colon carcinoma s/p right hemicolectomy who presents with black tarry stools. He was seen this morning. He was sleepy. Overnight he did not have much sleep. Denies chest pain or dyspnea. Discussed case with oncology. Recommended steroids and working up for hemolysis as an alternative cause. This afternoon, was present and patient is more compliant with drinking the contrast. He had bowel movements that were dark and tarry. Hopeful to have colonoscopy tomorrow. Otherwise, spoke with . She agree to steroids if we monitor closely for yeast infection. Will start nystatin powder to try to prevent serious yeast infection in groin. Otherwise, patient will be receiving 2u pRBC and 1u platelets. Objective Physical Examination General Exam: Positive: Cooperative Eye Exam: Negative: Sclera icteric Neck Exam: Positive: Supple Chest Exam: Positive: Clear to auscultation Heart Exam: Positive: Rate Normal, Regular Rhythm Abdomen Exam: Positive: Normal bowel sounds, Soft; Negative: Tenderness Extremity Exam: Positive: Edema Neuro Exam: Positive: Normal Speech Psych Exam: Positive: Other (More lethargic) Assessment /Plan Assessment Mr. Samano is an 80 year old male with refractory idiopathic thrombocytopenic purpura and colon carcinoma s/p right hemicolectomy who presents with black tarry stools. EGD was performed, demonstrated severe gastritis. General surgery to proceed with possible colonoscopy tomorrow. Patient was drinking contrast today when was present. He had dark tarry stools when he drank the bowel prep. Otherwise, will repeat hemoglobin and platelets and needed. Discussed with and she was agreeable to steroids if we watch closely for fungal infection in groin. Will start dexamethasone and topical nystatin. Plan/VTE VTE Prophylaxis Ordered?: Yes Plan 1. Acute blood loss anemia -EGD demonstrated severe gastritis, on BID PPI and carafate -Possible colonoscopy tomorrow -Otherwise continue trending CBC and transfusing blood as needed 2. Refectory ITP -Heme consulted, recommendations appreciated -S/P IVIG 1g/kg qD for 2 days -Continue Tavalisse 150mg BID - agreed to steroids if we watch for severe yeast infection. Starting topical nystatin powder -Dexamethasone 40mg for 4 days, then prednisone taper 3. Hypokalemia and hypomagnesemia -Continue to follow and trend 4. Anxiety -Continue Xanax 5. DM -Continue sliding scale insulin 6. AMS -Possibly due to UTI -Urine culture grew Staph hominis resistant to Bactrim -Tried doxycycline, but patient developed rash -Now on vancomycin 7. DVT ppx -TEDs Disposition: Pending colonoscopy on . Pending stability of H&H. Patient will need to follow up outpatient with Heme/Onc about thrombocytopenia. Patient will be started on steroids inpatient. VS, I&O, 24H, Fishbone Vital Signs/I&O Vital Signs Date Time Temp Pulse Resp B/P (MAP) Pulse Ox O2 Delivery O2 Flow Rate FiO2 03/24/21 19:14 97.8 71 20 132/62 (85) 96 Room Air 03/19/21 21:15 24.0 I&O- Last 24 Hours up to 6 AM 03/24/21 06:00 Intake Total 2015 ml Output Total 575 ml Balance 1440 ml Laboratory Data 24H LABS Laboratory Tests 2 03/23/21 21:14: Bedside Glucose (Misc Panel) 144H 03/24/21 07:36: Nucleated Red Blood Cells % (auto) 0.7H, Immature Platelet Fraction 14.8H, Anion Gap 5L, Glomerular Filtration Rate > 60.0, Calcium Level 8.0L, Magnesium Level 1.8, Total Bilirubin 0.5, Lactate Dehydrogenase 229 03/24/21 11:24: Bedside Glucose (Misc Panel) 113H 03/24/21 16:35: Bedside Glucose (Misc Panel) 129H 03/24/21 17:24: Prothrombin Time 13.5, Prothromb Time International Ratio 1.01, Activated Partial Thromboplast Time 27.3 CBC/BMP Laboratory Tests 03/24/21 07:36 Microbiology Microbiology 03/22/21 Urine Culture - Final, Complete Staphylococcus Hominis Ssp Steven HILARY MAYNARD DO March 24, 2021 20:28
[2021-03-24] MEDS: NYSTATIN 100,000 UNITS/GM TOPICAL PWD 15 GM TOP SCH (21:09)
[2021-03-24] MEDS: risperiDONE 2 MG TAB PO SCH (21:09)
[2021-03-24] MEDS: levETIRAcetam INJection 500 MG in D5W MINI-BAG PLUS 100 ML IV SCH (21:12)
[2021-03-24 21:24] LABS: HEMATOCRIT 30.6 % (42.0-52.0); MEAN CORPUSCULAR HGB CONC 33.7 g/dl (32.0-36.5); MEAN CORPUSCULAR VOLUME 92.2 fl (80.0-96.0); RED BLOOD COUNT 3.32 10^6/uL (4.30-6.10)
[2021-03-24 21:26] LABS: HEMOGLOBIN 10.3 g/dl (13.5-17.5)
[2021-03-24 21:27] LABS: PLATELET COUNT, AUTOMATED 2 10^3/uL (150-450)
[2021-03-24 23:08] LABS: HEMATOCRIT 26.9 % (42.0-52.0); HEMOGLOBIN 9.2 g/dl (13.5-17.5); MEAN CORPUSCULAR HEMOGLOBIN 31.6 pg (27.0-33.0); MEAN CORPUSCULAR HGB CONC 34.2 g/dl (32.0-36.5); MEAN CORPUSCULAR VOLUME 92.4 fl (80.0-96.0); RED BLOOD COUNT 2.91 10^6/uL (4.30-6.10); WHITE BLOOD COUNT 7.2 10^3/uL (4.0-10.0)
[2021-03-24 23:16] LABS: PLATELET COUNT, AUTOMATED 13 10^3/uL (150-450)
[2021-03-25] VITALS (9 sets, daily range): BP systolic 109–166; BP diastolic 53–82
[2021-03-25 04:46] LABS: HEMATOCRIT 27.7 % (42.0-52.0); HEMOGLOBIN 9.4 g/dl (13.5-17.5); MEAN CORPUSCULAR HEMOGLOBIN 31.3 pg (27.0-33.0); MEAN CORPUSCULAR VOLUME 92.3 fl (80.0-96.0)
[2021-03-25 04:47] LABS: MEAN CORPUSCULAR HGB CONC 33.9 g/dl (32.0-36.5)
[2021-03-25 04:51] LABS: PLATELET COUNT, AUTOMATED 3 10^3/uL (150-450)
[2021-03-25 04:54] LABS: ABG BASE EXCESS -3.5 (-2.0-2.0); ABG HCO3 19.9 MEQ/L (22.0-26.0); ABG O2 SATURATION 95.3 % (95.0-99.0); ABG PARTIAL PRESSURE O2 76.1 mmHg (75.0-100.0); ABG STANDARD HCO3 21.5 MEQ/L (22.0-26.0); ABG TOTAL CO2 20.8 MEQ/L (23.0-31.0); ABG pH (ARTERIAL) 7.439 UNITS (7.350-7.450)
[2021-03-25 05:13] LABS: BLOOD UREA NITROGEN 35 MG/DL (7-18); CALCIUM LEVEL 8.1 MG/DL (8.8-10.2); CARBON DIOXIDE LEVEL 25 MEQ/L (21-32); CHLORIDE LEVEL 111 MEQ/L (98-107); CREATININE FOR GFR 0.86 MG/DL (0.70-1.30); GLOMERULAR FILTRATION RATE > 60.0 (>35); GLUCOSE, FASTING 244 MG/DL (70-100); MAGNESIUM LEVEL 1.8 MG/DL (1.8-2.4); POTASSIUM SERUM 4.4 MEQ/L (3.5-5.1); SODIUM LEVEL 142 MEQ/L (136-145)
[2021-03-25 05:34] LABS: ALBUMIN 2.1 GM/DL (3.2-5.2); ALT/SGPT 16 U/L (12-78); BILIRUBIN,DIRECT 0.2 MG/DL (0.0-0.2); BILIRUBIN,TOTAL 0.5 MG/DL (0.2-1.0); TOTAL PROTEIN 5.2 GM/DL (6.4-8.2)
[2021-03-25] MEDS: VANCOMYCIN HCL 1,000 MG, VIAL MATE ADAPTER 1 EACH in NS 250 ML IV SCH ×2 (06:04→17:22)
[2021-03-25] MEDS: SODIUM CHLORIDE 0.9% INJ 10 ML SYR IV SCH ×2 (06:04→17:22)
--- NOTE | 2021-03-25 07:18 | REPVR ---
PROCEDURE INFORMATION: Exam: CT Head Without Contrast Exam date and time: 03/25/2021 6:11 AM Age: 81 years old Clinical indication: Other: Lethargy TECHNIQUE: Imaging protocol: Computed tomography of the head without contrast. Radiation optimization: All CT scans at this facility use at least one of these dose optimization techniques: automated exposure control; mA and/or kV adjustment per patient size (includes targeted exams where dose is matched to clinical indication); or iterative reconstruction. COMPARISON: CT Head without contrast 07/09/2020 10:47 AM FINDINGS: Brain: The brain demonstrates diffuse volume loss. There is white matter hypodensity most consistent with chronic small vessel ischemic change. Cerebral ventricles: The ventricles and CSF spaces are prominent related to generalized volume loss unchanged. Bones/joints: No acute fracture. Paranasal sinuses: There are retention cysts/polyps in the left maxillary sinus. There is mucoperiosteal reaction involving the ethmoid air cells and left sphenoid sinus. Mastoid air cells: Visualized mastoid air cells are well aerated. Vasculature: There is atherosclerotic disease involving the vertebral basilar system and cavernous ICAs. Soft tissues: Unremarkable. IMPRESSION: 1. Atrophy and the sequela prior small vessel ischemia. 2. There is no acute intracranial abnormality. Electronically signed by: Faheem Villa On 03/25/2021 07:18:35 AM
[2021-03-25] MEDS: HumaLOG INSULIN (NovoLOG) PER UNIT SC SCH ×4 (07:30→21:57)
[2021-03-25] MEDS: SUCRALFATE 1 GM TAB PO SCH ×4 (07:30→20:48)
[2021-03-25] MEDS: PANTOPRAZOLE 40MG VIAL (C9113 PER 1) IV SCH ×2 (08:50→20:49)
[2021-03-25] MEDS: levETIRAcetam INJection 250 MG in D5W 100 ML IV SCH (08:50)
[2021-03-25] MEDS: dexameTHASONE 20MG/5ML VIAL (J1100 PER 1MG) IV SCH (08:50)
[2021-03-25] MEDS: NYSTATIN 100,000 UNITS/GM TOPICAL PWD 15 GM TOP SCH ×2 (08:51→20:49)
[2021-03-25] MEDS: bisoproloL fumarate 10 MG TAB PO SCH (09:00)
[2021-03-25] MEDS: MIRALAX *UNIT DOSE* 17GM PACKET PO SCH ×2 (09:00→20:48)
[2021-03-25] MEDS: BISACODYL 5 MG TAB PO SCH (09:00)
[2021-03-25] MEDS: CETIRIZINE (ZyrTEC) 10 MG TAB PO SCH (09:00)
[2021-03-25] MEDS: TAVALISSE PO SCH ×2 (09:00→20:48)
[2021-03-25 19:13] LABS: HEMATOCRIT 23.2 % (42.0-52.0); HEMOGLOBIN 7.6 g/dl (13.5-17.5); MEAN CORPUSCULAR HEMOGLOBIN 30.9 pg (27.0-33.0); MEAN CORPUSCULAR HGB CONC 32.8 g/dl (32.0-36.5); MEAN CORPUSCULAR VOLUME 94.3 fl (80.0-96.0); RED BLOOD COUNT 2.46 10^6/uL (4.30-6.10); WHITE BLOOD COUNT 3.3 10^3/uL (4.0-10.0)
[2021-03-25 19:21] LABS: PLATELET COUNT, AUTOMATED 2 10^3/uL (150-450)
--- NOTE | 2021-03-25 19:37 | IPNPDOC ---
Subjective Date Seen The patient was seen on 03/25/21. Subjective Chief Complaint/HPI Mr. Samano is an 80 year old male with refractory idiopathic thrombocytopenic purpura and colon carcinoma s/p right hemicolectomy who presents with black tarry stools. He was awake most of the night yelling out, but around 3 to 4 am he was non-responsive. CT head was negative. Later in the morning, he was awake and answering questions appropriately. He may have flipped his sleeping cycle. He is awake at night and sleeping in the day time. Otherwise, colonoscopy will be delayed to Monday. Nursing reports dark tarry stool with bowel prep. This evening, nurse was concerned with some bright red blood seen with stool. Repeated CBC. Hemoglobin dropped to 7.6 from 9.4. Will transfuse pRBC and platelets Objective Physical Examination General Exam: Positive: Cooperative Eye Exam: Negative: Sclera icteric Neck Exam: Positive: Supple Chest Exam: Positive: Clear to auscultation Heart Exam: Positive: Rate Normal, Regular Rhythm Abdomen Exam: Positive: Normal bowel sounds, Soft; Negative: Tenderness Extremity Exam: Positive: Edema Neuro Exam: Positive: Normal Speech Psych Exam: Positive: Other (More lethargic) Assessment /Plan Assessment Mr. Samano is an 80 year old male with refractory idiopathic thrombocytopenic purpura and colon carcinoma s/p right hemicolectomy who presents with black tarry stools. EGD was performed, demonstrated severe gastritis. General surgery to proceed with possible colonoscopy tomorrow. Patient was drinking contrast today when was present. He had dark tarry stools and some bright red blood per rectum when he drank the bowel prep. Otherwise, will repeat hemoglobin and platelets and needed. Discussed with and she was agreeable to steroids if we watch closely for fungal infection in groin. Will start dexamethasone and topical nystatin. Plan/VTE VTE Prophylaxis Ordered?: Yes Plan 1. Acute blood loss anemia -EGD demonstrated severe gastritis, on BID PPI and carafate -Possible colonoscopy on Monday -Otherwise continue trending CBC and transfusing blood as needed 2. Refectory ITP -Heme consulted, recommendations appreciated -S/P IVIG 1g/kg qD for 2 days -Continue Tavalisse 150mg BID - agreed to steroids if we watch for severe yeast infection. Starting topical nystatin powder -Dexamethasone 40mg for 4 days, then prednisone taper 3. Hypokalemia and hypomagnesemia -Continue to follow and trend 4. Anxiety -Continue Xanax 5. DM -Continue sliding scale insulin 6. AMS -Possibly due to UTI -Urine culture grew Staph hominis resistant to Bactrim -Tried doxycycline, but patient developed rash -Now on vancomycin day 1 7. DVT ppx -TEDs Disposition: Pending colonoscopy on Monday. Pending stability of H&H. Patient will need to follow up outpatient with Heme/Onc about thrombocytopenia. Patient will be started on steroids inpatient. VS, I&O, 24H, Fishbone Vital Signs/I&O Vital Signs Date Time Temp Pulse Resp B/P (MAP) Pulse Ox O2 Delivery O2 Flow Rate FiO2 03/25/21 16:00 97.6 89 20 116/53 (74) 99 Room Air 03/19/21 21:15 24.0 I&O- Last 24 Hours up to 6 AM 03/25/21 06:00 Intake Total 2468.5 ml Output Total 875 ml Balance 1593.5 ml Laboratory Data 24H LABS Laboratory Tests 2 03/24/21 20:48: Bedside Glucose (Misc Panel) 175H 03/24/21 21:00: Nucleated Red Blood Cells % (auto) 0.5H 03/24/21 23:03: Nucleated Red Blood Cells % (auto) 0.6H 03/25/21 04:07: Bedside Glucose (Misc Panel) 216H 03/25/21 04:27: Nucleated Red Blood Cells % (auto) 0.6H, Anion Gap 6L, Glomerular Filtration Rate > 60.0, Calcium Level 8.1L, Magnesium Level 1.8, Total Bilirubin 0.5, Direct Bilirubin 0.2, Aspartate Amino Transf (AST/SGOT) 24, Alanine Aminotransferase (ALT/SGPT) 16, Alkaline Phosphatase 49, Total Protein 5.2L, Albumin 2.1L, Albumin/Globulin Ratio 0.7 03/25/21 04:39: Blood Gas Bicarbonate Standard 21.5L, Arterial Blood pH 7.439, Arterial Blood Partial Pressure CO2 30.0L, Arterial Blood Partial Pressure O2 76.1, Arterial Blood Total CO2 20.8L, Arterial Blood HCO3 19.9L, Arterial Blood Base Excess -3.5L, Arterial Blood Oxygen Saturation 95.3 03/25/21 05:21: 03/25/21 08:50: Urine Color YELLOW, Urine Appearance CLEAR, Urine pH 5.0, Urine Specific [place] 1.019, Urine Protein NEGATIVE, Urine Glucose (UA) 1+H, Urine Ketones 1+H, Urine Blood NEGATIVE, Urine Nitrite NEGATIVE, Urine Bilirubin NEGATIVE, Urine Urobilinogen 0.2, Urine Leukocyte Esterase NEGATIVE, Urine WBC (Auto) 6H, Urine RBC (Auto) 8H, Urine Hyaline Casts (Auto) 0, Urine Bacteria (Auto) NEGATIVE, Urine Squamous Epithelial Cells 0, Urine Mucus (Auto) SMALL, Urine Yeast-Like Cells (Auto) SMALLH, Urine Sperm (Auto) 03/25/21 11:41: Bedside Glucose (Misc Panel) 202H 03/25/21 16:27: Bedside Glucose (Misc Panel) 241H 03/25/21 18:39: Nucleated Red Blood Cells % (auto) 0.0, Immature Platelet Fraction 3.2 CBC/BMP Laboratory Tests 03/24/21 21:00 03/24/21 23:03 03/25/21 04:27 03/25/21 18:39 Microbiology Microbiology 03/25/21 Blood Culture, Received Pending 03/25/21 Blood Culture, Received Pending 03/22/21 Urine Culture - Final, Complete Staphylococcus Hominis Ssp Steven HILARY MAYNARD DO March 25, 2021 19:37
[2021-03-25] MEDS: RAMELTEON 8 MG TAB (ROZEREM) PO SCH (20:48)
[2021-03-25] MEDS: risperiDONE 2 MG TAB PO SCH (20:48)
[2021-03-25] MEDS: levETIRAcetam INJection 500 MG in D5W MINI-BAG PLUS 100 ML IV SCH (20:49)
[2021-03-25] MEDS: ALPRAZolam 0.25 MG TAB PO SCH (21:00)
[2021-03-26] VITALS (12 sets, daily range): BP systolic 99–147; BP diastolic 50–87
[2021-03-26 04:27] LABS: HEMATOCRIT 25.8 % (42.0-52.0); HEMOGLOBIN 8.7 g/dl (13.5-17.5); MEAN CORPUSCULAR HEMOGLOBIN 32.2 pg (27.0-33.0); MEAN CORPUSCULAR HGB CONC 33.7 g/dl (32.0-36.5); MEAN CORPUSCULAR VOLUME 95.6 fl (80.0-96.0); WHITE BLOOD COUNT 3.2 10^3/uL (4.0-10.0)
[2021-03-26 04:29] LABS: PLATELET COUNT, AUTOMATED 2 10^3/uL (150-450)
[2021-03-26 04:55] LABS: BLOOD UREA NITROGEN 37 MG/DL (7-18); CALCIUM LEVEL 7.3 MG/DL (8.8-10.2); CARBON DIOXIDE LEVEL 25 MEQ/L (21-32); CHLORIDE LEVEL 114 MEQ/L (98-107); CREATININE FOR GFR 0.76 MG/DL (0.70-1.30); GLOMERULAR FILTRATION RATE > 60.0 (>35); GLUCOSE, FASTING 243 MG/DL (70-100); MAGNESIUM LEVEL 1.8 MG/DL (1.8-2.4); POTASSIUM SERUM 3.6 MEQ/L (3.5-5.1); SODIUM LEVEL 144 MEQ/L (136-145)
[2021-03-26] MEDS: SODIUM CHLORIDE 0.9% INJ 10 ML SYR IV SCH ×2 (05:08→18:29)
[2021-03-26] MEDS: VANCOMYCIN HCL 1,000 MG, VIAL MATE ADAPTER 1 EACH in NS 250 ML IV SCH (05:08)
[2021-03-26] MEDS: levETIRAcetam INJection 250 MG in D5W 100 ML IV SCH (08:27)
[2021-03-26] MEDS: PANTOPRAZOLE 40MG VIAL (C9113 PER 1) IV SCH ×2 (08:27→22:15)
[2021-03-26] MEDS: dexameTHASONE 20MG/5ML VIAL (J1100 PER 1MG) IV SCH (08:31)
[2021-03-26] MEDS: bisoproloL fumarate 10 MG TAB PO SCH (08:32)
[2021-03-26] MEDS: SUCRALFATE 1 GM TAB PO SCH ×4 (08:32→22:16)
[2021-03-26] MEDS: CETIRIZINE (ZyrTEC) 10 MG TAB PO SCH (08:32)
[2021-03-26] MEDS: TAVALISSE PO SCH ×2 (08:33→22:15)
[2021-03-26] MEDS: HumaLOG INSULIN (NovoLOG) PER UNIT SC SCH ×4 (08:33→21:00)
[2021-03-26] MEDS: NYSTATIN 100,000 UNITS/GM TOPICAL PWD 15 GM TOP SCH ×2 (08:34→21:00)
[2021-03-26] MEDS: MIRALAX *UNIT DOSE* 17GM PACKET PO SCH ×2 (08:39→09:00)
[2021-03-26] MEDS: ALPRAZolam 0.25 MG TAB PO SCH ×2 (09:10→22:15)
[2021-03-26] MEDS: NYSTATIN 500,000 U/5 ML SUSP UDC SS SCH ×2 (13:30→18:28)
[2021-03-26] MEDS ORDERED: GOLYTELY SOLN 4000 ML BTL PO ONE (14:00)
[2021-03-26 15:43] LABS: HEMATOCRIT 24.6 % (42.0-52.0); HEMOGLOBIN 8.1 g/dl (13.5-17.5); MEAN CORPUSCULAR HEMOGLOBIN 31.9 pg (27.0-33.0); MEAN CORPUSCULAR HGB CONC 32.9 g/dl (32.0-36.5); MEAN CORPUSCULAR VOLUME 96.9 fl (80.0-96.0); RED BLOOD COUNT 2.54 10^6/uL (4.30-6.10)
[2021-03-26 15:57] LABS: PLATELET COUNT, AUTOMATED 1 10^3/uL (150-450)
--- NOTE | 2021-03-26 15:58 | IPNPDOC ---
Subjective Date Seen The patient was seen on 03/26/21. Subjective Chief Complaint/HPI Mr. Samano is an 80 year old male with refractory idiopathic thrombocytopenic purpura and colon carcinoma s/p right hemicolectomy who presents with black tarry stools. This morning, he was awake and pleasant. Denies chest pain or dyspnea. He had stools saved. There was two different stool appearance. One was black and tary. The other was a liquid and dark maroon color. Will be checking CBC again later today. Objective Physical Examination General Exam: Positive: Cooperative Eye Exam: Negative: Sclera icteric Neck Exam: Positive: Supple Chest Exam: Positive: Clear to auscultation Heart Exam: Positive: Rate Normal, Regular Rhythm Abdomen Exam: Positive: Normal bowel sounds, Soft; Negative: Tenderness Extremity Exam: Positive: Edema Neuro Exam: Positive: Normal Speech Psych Exam: Positive: Other (More lethargic) Assessment /Plan Assessment Mr. Samano is an 80 year old male with refractory idiopathic thrombocytopenic purpura and colon carcinoma s/p right hemicolectomy who presents with black tarry stools. EGD was performed, demonstrated severe gastritis. General surgery to proceed with possible colonoscopy tomorrow. Patient was drinking contrast today when was present. He had dark tarry stools and some bright red blood per rectum when he drank the bowel prep. Otherwise, will repeat hemoglobin and platelets and needed. Discussed with and she was agreeable to steroids if we watch closely for fungal infection in groin. Will start dexamethasone and topical nystatin. Will also add oral nystatin Plan/VTE VTE Prophylaxis Ordered?: Yes Plan 1. Acute blood loss anemia -EGD demonstrated severe gastritis, on BID PPI and carafate -Possible colonoscopy on Monday -Otherwise continue trending CBC and transfusing blood as needed 2. Refectory ITP -Heme consulted, recommendations appreciated -S/P IVIG 1g/kg qD for 2 days -Continue Tavalisse 150mg BID - agreed to steroids if we watch for severe yeast infection. Starting topical nystatin powder -Dexamethasone 40mg for 4 days, then prednisone taper 3. Hypokalemia and hypomagnesemia -Continue to follow and trend 4. Anxiety -Continue Xanax 5. DM -Continue sliding scale insulin 6. AMS -Possibly due to UTI -Urine culture grew Staph hominis resistant to Bactrim -Tried doxycycline, but patient developed rash -Now on vancomycin day 2 7. DVT ppx -TEDs Disposition: Pending colonoscopy on Monday. Pending stability of H&H. Patient will need to follow up outpatient with Heme/Onc about thrombocytopenia. Patient will be started on steroids inpatient. VS, I&O, 24H, Fishbone Vital Signs/I&O Vital Signs Date Time Temp Pulse Resp B/P (MAP) Pulse Ox O2 Delivery O2 Flow Rate FiO2 03/26/21 11:33 98.7 63 18 121/58 (79) 99 Room Air 03/26/21 08:20 I&O- Last 24 Hours up to 6 AM 03/26/21 05:59 Intake Total 3112.5 ml Output Total 1525 ml Balance 1587.5 ml Laboratory Data 24H LABS Laboratory Tests 2 03/25/21 16:27: Bedside Glucose (Misc Panel) 241H 03/25/21 18:39: Nucleated Red Blood Cells % (auto) 0.0, Immature Platelet Fraction 3.2 03/25/21 20:59: Bedside Glucose (Misc Panel) 274H 03/26/21 04:08: Nucleated Red Blood Cells % (auto) 1.2H, Anion Gap 5L, Glomerular Filtration Rate > 60.0, Calcium Level 7.3L, Magnesium Level 1.8 03/26/21 12:16: Bedside Glucose (Misc Panel) 199H CBC/BMP Laboratory Tests 03/25/21 18:39 03/26/21 04:08 Microbiology Microbiology 03/26/21 Respiratory Virus Panel (PCR) (JORGE) - Final, Complete 03/25/21 Blood Culture - Preliminary, Resulted No growth after 24 hours . All specim... 03/25/21 Blood Culture - Preliminary, Resulted No growth after 24 hours . All specim... 03/22/21 Urine Culture - Final, Complete Staphylococcus Hominis Ssp Steven CAESARHILARY CaroJusten KRISHNA March 26, 2021 15:58
[2021-03-26] MEDS ORDERED: VANCOMYCIN HCL 750 MG, VIAL MATE ADAPTER 1 EACH in NS 250 ML IV ONE (20:00)
[2021-03-26] MEDS ORDERED: VANCOMYCIN HCL 500 MG in D5W MINI-BAG PLUS 100 ML IV ONE (20:00)
[2021-03-26] MEDS ORDERED: VANCOMYCIN HCL 750 MG, VIAL MATE ADAPTER 1 EACH in NS 250 ML IV SCH (20:00)
[2021-03-26] MEDS ORDERED: VANCOMYCIN HCL 1,000 MG, VIAL MATE ADAPTER 1 EACH in NS 250 ML IV SCH (20:00)
[2021-03-26] MEDS ORDERED: VANCOMYCIN HCL 500 MG in D5W MINI-BAG PLUS 100 ML IV SCH (21:00)
[2021-03-26] MEDS: RAMELTEON 8 MG TAB (ROZEREM) PO SCH (22:15)
[2021-03-27] VITALS (15 sets, daily range): BP systolic 85–116; BP diastolic 44–73
[2021-03-27] MEDS: levETIRAcetam INJection 500 MG in D5W MINI-BAG PLUS 100 ML IV SCH ×2 (00:23→22:05)
[2021-03-27] MEDS: NYSTATIN 500,000 U/5 ML SUSP UDC SS SCH ×4 (00:23→18:05)
[2021-03-27] MEDS: risperiDONE 2 MG TAB PO SCH ×2 (00:23→22:07)
[2021-03-27 01:31] LABS: MEAN CORPUSCULAR HEMOGLOBIN 31.9 pg (27.0-33.0); MEAN CORPUSCULAR HGB CONC 33.2 g/dl (32.0-36.5); MEAN CORPUSCULAR VOLUME 96.3 fl (80.0-96.0); RED BLOOD COUNT 1.91 10^6/uL (4.30-6.10); WHITE BLOOD COUNT 4.2 10^3/uL (4.0-10.0)
[2021-03-27 01:35] LABS: HEMATOCRIT 18.4 % (42.0-52.0); HEMOGLOBIN 6.1 g/dl (13.5-17.5); PLATELET COUNT, AUTOMATED 6 10^3/uL (150-450)
[2021-03-27] MEDS: ALPRAZolam 0.25 MG TAB PO SCH ×2 (07:03→22:07)
[2021-03-27] MEDS: HumaLOG INSULIN (NovoLOG) PER UNIT SC SCH ×4 (07:30→21:00)
[2021-03-27] MEDS: SUCRALFATE 1 GM TAB PO SCH ×4 (07:30→22:07)
[2021-03-27] MEDS ORDERED: fentaNYL 100 MCG/2 ML INJECTION (J3010) As Ordered ONE (07:31)
[2021-03-27] MEDS ORDERED: propofoL 200 MG/20 ML VIAL As Ordered ONE (07:31)
[2021-03-27] MEDS ORDERED: LIDOCAINE 2% 100MG/5ML SDV (FOR ANES.) As Ordered ONE (07:34)
[2021-03-27] MEDS: SODIUM CHLORIDE 0.9% INJ 10 ML SYR IV SCH ×2 (08:13→18:05)
--- NOTE | 2021-03-27 08:29 | IPNPDOC ---
Text Note Date of Service The patient was seen on 03/27/21. NOTE Patient was able to take his bowel prep yesterday, had several bms reportedly black and marroon colored. Continues to have severely low platelets, anemic with intermittent transfusions of platelets and prbc 16 VS,Fishbone, I+O VS, Fishbone, I+O Laboratory Tests 03/26/21 15:20 03/27/21 01:15 Vital Signs Date Time Temp Pulse Resp B/P (MAP) Pulse Ox O2 Delivery O2 Flow Rate FiO2 03/27/21 06:30 97.0 64 16 111/58 95 Room Air 03/26/21 08:20 I&O- Last 24 Hours up to 6 AM 03/27/21 06:00 Intake Total 4975 ml Output Total 1350 ml Balance 3625 ml JOSUE MEAD MD March 27, 2021 08:29
[2021-03-27] MEDS ORDERED: ePHEDrine SULFATE 25 MG/5 ML(5MG/ML) SYRINGE As Ordered ONE (08:53)
[2021-03-27] MEDS ORDERED: NS 1,000 ML IV SCH (10:15)
[2021-03-27] MEDS ORDERED: ONDANSETRON 4MG/2ML VIAL IV PRN (10:15)
[2021-03-27] MEDS: MIRALAX *UNIT DOSE* 17GM PACKET PO SCH ×2 (10:50→22:07)
[2021-03-27] MEDS: bisoproloL fumarate 10 MG TAB PO SCH (10:50)
[2021-03-27 10:51] LABS: HEMATOCRIT 21.2 % (42.0-52.0); MEAN CORPUSCULAR HEMOGLOBIN 31.4 pg (27.0-33.0); MEAN CORPUSCULAR VOLUME 95.1 fl (80.0-96.0); RED BLOOD COUNT 2.23 10^6/uL (4.30-6.10); WHITE BLOOD COUNT 2.8 10^3/uL (4.0-10.0)
[2021-03-27 10:53] LABS: PLATELET COUNT, AUTOMATED 1 10^3/uL (150-450)
[2021-03-27] MEDS: TAVALISSE PO SCH ×2 (11:30→22:08)
[2021-03-27] MEDS: dexameTHASONE 20MG/5ML VIAL (J1100 PER 1MG) IV SCH (11:30)
[2021-03-27] MEDS: CETIRIZINE (ZyrTEC) 10 MG TAB PO SCH (11:30)
[2021-03-27] MEDS: NYSTATIN 100,000 UNITS/GM TOPICAL PWD 15 GM TOP SCH ×2 (11:31→22:11)
[2021-03-27] MEDS: PANTOPRAZOLE 40MG VIAL (C9113 PER 1) IV SCH ×2 (11:31→22:08)
[2021-03-27] MEDS: levETIRAcetam INJection 250 MG in D5W 100 ML IV SCH (11:31)
[2021-03-27] MEDS: VANCOMYCIN HCL 1,000 MG, VIAL MATE ADAPTER 1 EACH in NS 250 ML IV SCH ×2 (11:32→23:34)
[2021-03-27 12:03] LABS: HEMATOCRIT 24.4 % (42.0-52.0); HEMOGLOBIN 8.1 g/dl (13.5-17.5); MEAN CORPUSCULAR HGB CONC 33.2 g/dl (32.0-36.5); MEAN CORPUSCULAR VOLUME 93.5 fl (80.0-96.0); RED BLOOD COUNT 2.61 10^6/uL (4.30-6.10); WHITE BLOOD COUNT 3.3 10^3/uL (4.0-10.0)
[2021-03-27 12:04] LABS: PLATELET COUNT, AUTOMATED 2 10^3/uL (150-450)
[2021-03-27 12:12] LABS: INR 1.1; PROTHROMBIN TIME 14.4 SECONDS (12.5-14.3)
[2021-03-27 12:46] LABS: ALBUMIN 1.9 GM/DL (3.2-5.2); ALT/SGPT 14 U/L (12-78); BILIRUBIN,TOTAL 0.4 MG/DL (0.2-1.0); BLOOD UREA NITROGEN 33 MG/DL (7-18); CARBON DIOXIDE LEVEL 25 MEQ/L (21-32); CHLORIDE LEVEL 114 MEQ/L (98-107); CREATININE FOR GFR 0.59 MG/DL (0.70-1.30); GLOMERULAR FILTRATION RATE > 60.0 (>35); GLUCOSE, FASTING 186 MG/DL (70-100); POTASSIUM SERUM 3.2 MEQ/L (3.5-5.1); SODIUM LEVEL 145 MEQ/L (136-145); TOTAL PROTEIN 3.7 GM/DL (6.4-8.2)
--- NOTE | 2021-03-27 14:19 | ROOR ---
Patient Name: Augie Samano Procedure Date: 03/27/2021 7:25 AM Date of : 1940 Age: 81 Room: [facility] [place] Gender: Male Note Status: Finalized Procedure: Upper GI endoscopy Indications: Hematochezia, Melena Providers: Wade Mallory MD Referring MD: Addison Quintana Do Requesting Provider: Medicines: Monitored Anesthesia Care Complications: No immediate complications. Procedure: Pre-Anesthesia Assessment: - Prior to the procedure, a History and Physical was performed, and patient medications and allergies were reviewed. The patient is unable to give consent secondary to the patient's altered mental status. The risks and benefits of the procedure and the sedation options and risks were discussed with the patient's spouse. All questions were answered and informed consent was obtained. Patient identification and proposed procedure were verified by the physician, the nurse and the anesthesiologist in the procedure room. Mental Status Examination: alert but confused. Airway Examination: normal oropharyngeal airway and neck mobility. Respiratory Examination: clear to auscultation. CV Examination: normal. Prophylactic Antibiotics: The patient does not require prophylactic antibiotics. Prior Anticoagulants: The patient has taken no previous anticoagulant or antiplatelet agents. ASA Grade Assessment: IV - A patient with severe systemic disease that is a constant threat to life. After reviewing the risks and benefits, the patient was deemed in satisfactory condition to undergo the procedure. The anesthesia plan was to use monitored anesthesia care (MAC). Immediately prior to administration of medications, the patient was re-assessed for adequacy to receive sedatives. The heart rate, respiratory rate, oxygen saturations, blood pressure, adequacy of pulmonary ventilation, and response to care were monitored throughout the procedure. The physical status of the patient was re-assessed after the procedure. The Endoscope was introduced through the mouth, and advanced to the second part of duodenum. The upper GI endoscopy was accomplished without difficulty. The patient tolerated the procedure fairly well. Findings: There is no endoscopic evidence of bleeding, areas of erosion or esophagitis in the entire esophagus. Scattered mild inflammation characterized by adherent blood and congestion (edema) was found in the cardia and in the gastric body. The first portion of the duodenum and second portion of the duodenum were normal. Impression: - Acute gastritis. - Normal first portion of the duodenum and second portion of the duodenum. - No specimens collected. Recommendation: - Admit the patient to pcu for ongoing care. Procedure Code(s): --- Professional --- 29023, Esophagogastroduodenoscopy, flexible, transoral; diagnostic, including collection of specimen(s) by brushing or washing, when performed (separate procedure) Diagnosis Code(s): --- Professional --- K29.00, Acute gastritis without bleeding K92.1, Melena (includes Hematochezia) CPT copyright 2019 [employer]. All rights reserved. The codes documented in this report are preliminary and upon warper tender review may be revised to meet current compliance requirements. Attending Participation: I personally performed the entire procedure. Wade Mallory MD Wade Mallory MD 03/27/2021 2:18:25 PM Electronically signed by Wade Mallory MD Number of Addenda: 0 Note Initiated On: 03/27/2021 7:25 AM Estimated Blood Loss: Estimated blood loss: none.
--- NOTE | 2021-03-27 14:33 | ROOR ---
Patient Name: Augie Samano Procedure Date: 03/27/2021 7:32 AM Date of : 1940 Age: 81 Room: [facility] Gender: Male Note Status: Finalized Procedure: Colonoscopy Indications: Hematochezia, Gastrointestinal bleeding Providers: Wade Mallory MD Referring MD: Addison Quintana Do Requesting Provider: Medicines: Monitored Anesthesia Care Complications: No immediate complications. Procedure: Pre-Anesthesia Assessment: - Prior to the procedure, a History and Physical was performed, and patient medications and allergies were reviewed. The patient is unable to give consent secondary to the patient's altered mental status. The risks and benefits of the procedure and the sedation options and risks were discussed with the patient's spouse. All questions were answered and informed consent was obtained. Patient identification and proposed procedure were verified by the physician, the nurse and the project management engineer in the procedure room. Mental Status Examination: alert but confused. Airway Examination: normal oropharyngeal airway and neck mobility. Respiratory Examination: clear to auscultation. CV Examination: normal. Prophylactic Antibiotics: The patient does not require prophylactic antibiotics. Prior Anticoagulants: The patient has taken no previous anticoagulant or antiplatelet agents. ASA Grade Assessment: IV - A patient with severe systemic disease that is a constant threat to life. After reviewing the risks and benefits, the patient was deemed in satisfactory condition to undergo the procedure. The anesthesia plan was to use monitored anesthesia care (MAC). Immediately prior to administration of medications, the patient was re-assessed for adequacy to receive sedatives. The heart rate, respiratory rate, oxygen saturations, blood pressure, adequacy of pulmonary ventilation, and response to care were monitored throughout the procedure. The physical status of the patient was re-assessed after the procedure. The Colonoscope was introduced through the anus and advanced to 20 cm into the ileum. The colonoscopy was technically difficult and complex due to excessive bleeding. Successful completion of the procedure was aided by lavage. The patient tolerated the procedure fairly well. The quality of the bowel preparation was adequate. Findings: Hemorrhoids were found on perianal exam. Colon wall is stained with red blood throughout its course, only small amount of clotted blood and hematin specks mostly in the rectum. Patient has had prior extended right colectomy and fairly short left over colon. Copious lavage was performed to inspect the colon wall for active bleeding. A few spots with small amunt of slow oozing near the enterocolonic anastomosis was burned with apc. Colonoscopy performed 20 cms past the anastomosis and still with blood past the reach of the colonoscope. No active bleeding at the visualized urbano of the small bowel. While I was at the anastomosis, after lavaging the small bowel another gush of relatively fresh blood returned to the colon. i went back to the small bowel and again did not see past 20 cms and again lavaged the urbano, and no active bleeding there. So main site of bleeding is small bowel and not able to be reached by the colonoscope. Coagulation for hemostasis using argon plasma at 0.3 liters/minute and 20 shore was Successful, but not the main site of bleeding. Red blood was found in the entire colon. The ileum, 20 cm from the ileocolonic anastomosis contained red blood. No additional abnormalities were found on retroflexion. Impression: - Hemorrhoids found on perianal exam. - Blood in the entire examined colon. - Blood in the ileum, 20 cm from the ileocolonic anastomosis. - No specimens collected. Recommendation: - Discussed the findings with his and with the hospitalist. I feel this is more a "medical bleed" due to the very low platelet count. I could not discount a specific lesion further upstream at the small bowel. Suggest doing a bleeding scan and speak to interventional radiology for possible angiogram. Though we also need to address more aggressively the very low platelet. If this is from the ITP, then may not be able to be managed by angiogram. Other options iclude transfer to a tertiary level care for enteroscopy Procedure Code(s): --- Professional --- 38039, Colonoscopy, flexible; with control of bleeding, any method Diagnosis Code(s): --- Professional --- K64.9, Unspecified hemorrhoids K92.2, Gastrointestinal hemorrhage, unspecified K92.1, Melena (includes Hematochezia) CPT copyright 2019 [employer]. All rights reserved. The codes documented in this report are preliminary and upon plater hot dip review may be revised to meet current compliance requirements. Wade Mallory MD Wade Mallory MD 03/27/2021 2:33:36 PM Electronically signed by Wade Mallory MD Number of Addenda: 0 Note Initiated On: 03/27/2021 7:32 AM Estimated Blood Loss: None from the procedure
[2021-03-27] MEDS ORDERED: NS 500 ML IV ONE (16:30)
[2021-03-27] MEDS: FUROSEMIDE 20 MG TAB PO SCH (17:16)
[2021-03-27 18:16] LABS: HEMATOCRIT 23.6 % (42.0-52.0); HEMOGLOBIN 7.8 g/dl (13.5-17.5); MEAN CORPUSCULAR HEMOGLOBIN 31.2 pg (27.0-33.0); MEAN CORPUSCULAR HGB CONC 33.1 g/dl (32.0-36.5); MEAN CORPUSCULAR VOLUME 94.4 fl (80.0-96.0); WHITE BLOOD COUNT 6.2 10^3/uL (4.0-10.0)
[2021-03-27 18:19] LABS: PLATELET COUNT, AUTOMATED 20 10^3/uL (150-450)
--- NOTE | 2021-03-27 18:44 | IPNPDOC ---
Subjective Date Seen The patient was seen on 03/27/21. Subjective Chief Complaint/HPI Mr. Samano is an 80 year old male with refractory idiopathic thrombocytopenic purpura and colon carcinoma s/p right hemicolectomy who presents with black tarry stools. This morning, he went to colonoscopy. There was blood in the colon but there was no source of bleeding. Most likely bleeding in the small intestine. I reached out to Heme/Onc. Recommended transfer. Discussed with and patient. would like patient to be transferred, but it would ultimately be decided by patient. Patient did not want to go to [place]. Other option woul d be hospice. Patient and to think about options. Objective Physical Examination General Exam: Positive: Cooperative Eye Exam: Negative: Sclera icteric Neck Exam: Positive: Supple Chest Exam: Positive: Clear to auscultation Heart Exam: Positive: Rate Normal, Regular Rhythm Abdomen Exam: Positive: Normal bowel sounds, Soft; Negative: Tenderness Extremity Exam: Positive: Edema Neuro Exam: Positive: Normal Speech Psych Exam: Positive: Other (More lethargic) Assessment /Plan Assessment Mr. Samano is an 80 year old male with refractory idiopathic thrombocytopenic purpura and colon carcinoma s/p right hemicolectomy who presents with black tarry stools. EGD was performed, demonstrated severe gastritis. General surgery to proceed with possible colonoscopy tomorrow. Patient was drinking contrast today when was present. He had dark tarry stools and some bright red blood per rectum when he drank the bowel prep. Otherwise, will repeat hemoglobin and platelets and needed. Discussed with and she was agreeable to steroids if we watch closely for fungal infection in groin. Will start dexamethasone and topical nystatin. Will also add oral nystatin Completed 4 days of dexamethasone. Will start 1mg/kg prednisone with taper Plan/VTE VTE Prophylaxis Ordered?: Yes Plan 1. Acute blood loss anemia -EGD demonstrated severe gastritis, on BID PPI and carafate -Colonoscopy demonstrated blood, but no source. Bleeding from small bowel -Otherwise continue trending CBC and transfusing blood and platelets as needed 2. Refectory ITP -Heme consulted, recommendations appreciated -S/P IVIG 1g/kg qD for 2 days -Continue Tavalisse 150mg BID - agreed to steroids if we watch for severe yeast infection. Starting topical nystatin powder -Dexamethasone 40mg for 4 days, then prednisone taper. Now on prednisone taper 3. Hypokalemia and hypomagnesemia -Continue to follow and trend 4. Anxiety -Continue Xanax 5. DM -Continue sliding scale insulin 6. AMS -Possibly due to UTI -Urine culture grew Staph hominis resistant to Bactrim -Tried doxycycline, but patient developed rash -Now on vancomycin day 2 7. DVT ppx -TEDs Disposition: Discussed transfer to [facility] or Hospice with patient and . They will think about it tonight VS, I&O, 24H, Fishbone Vital Signs/I&O Vital Signs Date Time Temp Pulse Resp B/P (MAP) Pulse Ox O2 Delivery O2 Flow Rate FiO2 03/27/21 16:45 97.3 74 15 95/45 92 Room Air 03/26/21 08:20 I&O- Last 24 Hours up to 6 AM 03/27/21 06:00 Intake Total 4975 ml Output Total 1350 ml Balance 3625 ml Laboratory Data 24H LABS Laboratory Tests 2 03/26/21 21:12: Bedside Glucose (Misc Panel) 197H 03/27/21 01:15: Nucleated Red Blood Cells % (auto) 0.5H 03/27/21 09:47: Bedside Glucose (Misc Panel) 175H 03/27/21 10:33: Nucleated Red Blood Cells % (auto) 0.7H 03/27/21 11:50: Nucleated Red Blood Cells % (auto) 0.0, Prothrombin Time 14.4H, Prothromb Time International Ratio 1.10, Activated Partial Thromboplast Time 24.0L, Anion Gap 6L, Glomerular Filtration Rate > 60.0, Calcium Level 7.0L, Total Bilirubin 0.4, Aspartate Amino Transf (AST/SGOT) 16, Alanine Aminotransferase (ALT/SGPT) 14, Alkaline Phosphatase 30L, Total Protein 3.7#L, Albumin 1.9L, Albumin/Globulin Ratio 1.1 03/27/21 12:30: Bedside Glucose (Misc Panel) 179H 03/27/21 17:25: Bedside Glucose (Misc Panel) 150H 03/27/21 18:00: Nucleated Red Blood Cells % (auto) 0.8H, Immature Platelet Fraction 2.1 CBC/BMP Laboratory Tests 03/27/21 01:15 03/27/21 10:33 03/27/21 11:50 03/27/21 18:00 Microbiology Microbiology 03/26/21 Respiratory Virus Panel (PCR) (JORGE) - Final, Complete 03/25/21 Blood Culture - Preliminary, Resulted No Growth after 48 hours. All Specime... 03/25/21 Blood Culture - Preliminary, Resulted No Growth after 48 hours. All Specime... 03/22/21 Urine Culture - Final, Complete Staphylococcus Hominis Ssp Steven HILARY MAYNARD DO March 27, 2021 18:44
[2021-03-27] MEDS: RAMELTEON 8 MG TAB (ROZEREM) PO SCH (22:07)
[2021-03-28] VITALS (18 sets, daily range): BP systolic 91–131; BP diastolic 50–68
[2021-03-28 01:03] LABS: MEAN CORPUSCULAR HEMOGLOBIN 31.6 pg (27.0-33.0); MEAN CORPUSCULAR HGB CONC 33.3 g/dl (32.0-36.5); MEAN CORPUSCULAR VOLUME 94.7 fl (80.0-96.0); RED BLOOD COUNT 2.09 10^6/uL (4.30-6.10)
[2021-03-28 01:04] LABS: HEMATOCRIT 19.8 % (42.0-52.0); HEMOGLOBIN 6.6 g/dl (13.5-17.5); PLATELET COUNT, AUTOMATED 2 10^3/uL (150-450)
[2021-03-28] MEDS: SODIUM CHLORIDE 0.9% INJ 10 ML SYR IV SCH ×2 (06:48→18:31)
[2021-03-28] MEDS: NYSTATIN 500,000 U/5 ML SUSP UDC SS SCH ×4 (06:48→18:31)
[2021-03-28 07:09] LABS: HEMATOCRIT 28.9 % (42.0-52.0); MEAN CORPUSCULAR HEMOGLOBIN 30.8 pg (27.0-33.0); MEAN CORPUSCULAR HGB CONC 32.9 g/dl (32.0-36.5); MEAN CORPUSCULAR VOLUME 93.8 fl (80.0-96.0); RED BLOOD COUNT 3.08 10^6/uL (4.30-6.10); WHITE BLOOD COUNT 4.6 10^3/uL (4.0-10.0)
[2021-03-28 07:13] LABS: HEMOGLOBIN 9.5 g/dl (13.5-17.5); PLATELET COUNT, AUTOMATED 2 10^3/uL (150-450)
[2021-03-28 07:32] LABS: BLOOD UREA NITROGEN 33 MG/DL (7-18); CALCIUM LEVEL 7.5 MG/DL (8.8-10.2); CARBON DIOXIDE LEVEL 24 MEQ/L (21-32); CHLORIDE LEVEL 115 MEQ/L (98-107); CREATININE FOR GFR 0.63 MG/DL (0.70-1.30); GLOMERULAR FILTRATION RATE > 60.0 (>35); GLUCOSE, FASTING 147 MG/DL (70-100); MAGNESIUM LEVEL 1.8 MG/DL (1.8-2.4); POTASSIUM SERUM 3.3 MEQ/L (3.5-5.1); SODIUM LEVEL 144 MEQ/L (136-145)
[2021-03-28] MEDS ORDERED: predniSONE 20 MG TAB PO SCH ×2 (09:00)
[2021-03-28] MEDS: MIRALAX *UNIT DOSE* 17GM PACKET PO SCH ×2 (09:00→21:00)
[2021-03-28] MEDS ORDERED: predniSONE 50 MG TAB PO ONE (09:00)
[2021-03-28] MEDS: PANTOPRAZOLE 40MG VIAL (C9113 PER 1) IV SCH ×2 (09:14→20:34)
[2021-03-28] MEDS: ALPRAZolam 0.25 MG TAB PO SCH ×2 (09:14→20:33)
[2021-03-28] MEDS: CETIRIZINE (ZyrTEC) 10 MG TAB PO SCH (09:14)
[2021-03-28] MEDS: SUCRALFATE 1 GM TAB PO SCH ×4 (09:15→20:33)
[2021-03-28] MEDS: FUROSEMIDE 20 MG TAB PO SCH (09:15)
[2021-03-28] MEDS: HumaLOG INSULIN (NovoLOG) PER UNIT SC SCH ×4 (09:16→21:00)
[2021-03-28] MEDS: TAVALISSE PO SCH ×2 (09:16→20:33)
[2021-03-28] MEDS: levETIRAcetam INJection 250 MG in D5W 100 ML IV SCH (09:17)
[2021-03-28] MEDS: VANCOMYCIN HCL 1,000 MG, VIAL MATE ADAPTER 1 EACH in NS 250 ML IV SCH ×2 (09:17→22:45)
[2021-03-28] MEDS: NYSTATIN 100,000 UNITS/GM TOPICAL PWD 15 GM TOP SCH ×2 (09:17→20:40)
[2021-03-28 14:21] LABS: HEMATOCRIT 27.7 % (42.0-52.0); HEMOGLOBIN 9.4 g/dl (13.5-17.5); MEAN CORPUSCULAR HEMOGLOBIN 31.9 pg (27.0-33.0); MEAN CORPUSCULAR HGB CONC 33.9 g/dl (32.0-36.5); MEAN CORPUSCULAR VOLUME 93.9 fl (80.0-96.0); RED BLOOD COUNT 2.95 10^6/uL (4.30-6.10); WHITE BLOOD COUNT 4.2 10^3/uL (4.0-10.0)
[2021-03-28 14:24] LABS: PLATELET COUNT, AUTOMATED 1 10^3/uL (150-450)
[2021-03-28] MEDS: risperiDONE 2 MG TAB PO SCH (20:33)
[2021-03-28] MEDS: RAMELTEON 8 MG TAB (ROZEREM) PO SCH (20:33)
--- NOTE | 2021-03-28 20:36 | IPNPDOC ---
Subjective Date Seen The patient was seen on 03/28/21. Subjective Chief Complaint/HPI Mr. Samano is an 80 year old male with refractory idiopathic thrombocytopenic purpura and colon carcinoma s/p right hemicolectomy who presents with black tarry stools. This morning, he denies any chest pain or dyspnea. This afternoon spoke with and patient. Agreed to transfer, but only in the [place] area. Called [facility]. No bed availability today. They don't do waiting list so would need to call back tomorrow. Called [facility]. They do not have transportation engineering technician IR or hematology. Called [place]. Spoke with their tobacco sweeper. Their tobacco sweeper spoke with our tobacco sweeper. Then they spoke with GI and round corner cutter operator. They all felt that patient would be better served at a larger institution such as [facility] or [facility]. Spoke with Dr. Mallory. Patient would not need IR on board for nuclear bleeding scan. H&H stable today. Will order when H&H dropping. Objective Physical Examination General Exam: Positive: Cooperative Eye Exam: Negative: Sclera icteric Neck Exam: Positive: Supple Chest Exam: Positive: Clear to auscultation Heart Exam: Positive: Rate Normal, Regular Rhythm Abdomen Exam: Positive: Normal bowel sounds, Soft; Negative: Tenderness Extremity Exam: Positive: Edema Neuro Exam: Positive: Normal Speech Psych Exam: Positive: Other (More lethargic) Assessment /Plan Assessment Mr. Samano is an 80 year old male with refractory idiopathic thrombocytopenic purpura and colon carcinoma s/p right hemicolectomy who presents with black tarry stools. EGD was performed, demonstrated severe gastritis. General surgery to proceed with possible colonoscopy tomorrow. Patient was drinking contrast today when was present. He had dark tarry stools and some bright red blood per rectum when he drank the bowel prep. Otherwise, will repeat hemoglobin and platelets and needed. Discussed with and she was agreeable to steroids if we watch closely for fungal infection in groin. Will start dexamethasone and topical nystatin. Will also add oral nystatin Completed 4 days of dexamethasone. Will start 1mg/kg prednisone with taper. Patient and agreeable to transfer. [facility] would not be able to take patient. Will need to call [facility] for bed availability. Plan/VTE VTE Prophylaxis Ordered?: Yes Plan 1. Acute blood loss anemia -EGD demonstrated severe gastritis, on BID PPI and carafate -Colonoscopy demonstrated blood, but no source. Bleeding from small bowel -Otherwise continue trending CBC and transfusing blood and platelets as needed 2. Refectory ITP -Heme consulted, recommendations appreciated -S/P IVIG 1g/kg qD for 2 days -Continue Tavalisse 150mg BID - agreed to steroids if we watch for severe yeast infection. Starting topical nystatin powder -Dexamethasone 40mg for 4 days, then prednisone taper. Now on prednisone taper 3. Hypokalemia and hypomagnesemia -Continue to follow and trend 4. Anxiety -Continue Xanax 5. DM -Continue sliding scale insulin 6. AMS -Possibly due to UTI -Urine culture grew Staph hominis resistant to Bactrim -Tried doxycycline, but patient developed rash -Now on vancomycin day 2 7. DVT ppx -TEDs Disposition: Patient and agreeable to transfer. Will need to call [facility] for bed availability. Otherwise, pending stability of H&H. VS, I&O, 24H, Fishbone Vital Signs/I&O Vital Signs Date Time Temp Pulse Resp B/P (MAP) Pulse Ox O2 Delivery O2 Flow Rate FiO2 03/28/21 19:43 98.2 98 18 106/58 95 Room Air 03/26/21 08:20 I&O- Last 24 Hours up to 6 AM 03/28/21 06:00 Intake Total 3174 ml Output Total 1750 ml Balance 1424 ml Laboratory Data 24H LABS Laboratory Tests 2 03/27/21 22:13: Bedside Glucose (Misc Panel) 178H 03/28/21 00:56: Nucleated Red Blood Cells % (auto) 0.8H 03/28/21 06:58: Nucleated Red Blood Cells % (auto) 0.9H, Anion Gap 5L, Glomerular Filtration Rate > 60.0, Calcium Level 7.5L, Magnesium Level 1.8 03/28/21 12:21: Bedside Glucose (Misc Panel) 196H 03/28/21 14:10: Nucleated Red Blood Cells % (auto) 1.4H 03/28/21 17:19: Bedside Glucose (Misc Panel) 329H CBC/BMP Laboratory Tests 03/28/21 00:56 03/28/21 06:58 03/28/21 14:10 Microbiology Microbiology 03/26/21 Respiratory Virus Panel (PCR) (JORGE) - Final, Complete 03/25/21 Blood Culture - Preliminary, Resulted No Growth after 72 hours. All specime... 03/25/21 Blood Culture - Preliminary, Resulted No Growth after 72 hours. All specime... 03/22/21 Urine Culture - Final, Complete Staphylococcus Hominis Ssp Steven HILARY MAYNARD DO March 28, 2021 20:36
[2021-03-28] MEDS: levETIRAcetam INJection 500 MG in D5W MINI-BAG PLUS 100 ML IV SCH (21:33)
[2021-03-28 22:48] LABS: HEMATOCRIT 22.4 % (42.0-52.0); HEMOGLOBIN 7.6 g/dl (13.5-17.5); MEAN CORPUSCULAR HEMOGLOBIN 31.8 pg (27.0-33.0); MEAN CORPUSCULAR HGB CONC 33.9 g/dl (32.0-36.5); MEAN CORPUSCULAR VOLUME 93.7 fl (80.0-96.0); RED BLOOD COUNT 2.39 10^6/uL (4.30-6.10); WHITE BLOOD COUNT 5.5 10^3/uL (4.0-10.0)
[2021-03-28 22:49] LABS: PLATELET COUNT, AUTOMATED 11 10^3/uL (150-450)
[2021-03-29] VITALS (16 sets, daily range): BP systolic 91–136; BP diastolic 46–63
[2021-03-29] MEDS: NYSTATIN 500,000 U/5 ML SUSP UDC SS SCH ×4 (01:06→17:30)
[2021-03-29 05:50] LABS: MEAN CORPUSCULAR HEMOGLOBIN 31.3 pg (27.0-33.0); MEAN CORPUSCULAR VOLUME 94.9 fl (80.0-96.0); RED BLOOD COUNT 2.14 10^6/uL (4.30-6.10); WHITE BLOOD COUNT 4.4 10^3/uL (4.0-10.0)
[2021-03-29 05:53] LABS: HEMATOCRIT 20.3 % (42.0-52.0); HEMOGLOBIN 6.7 g/dl (13.5-17.5); PLATELET COUNT, AUTOMATED 2 10^3/uL (150-450)
[2021-03-29 06:37] LABS: BLOOD UREA NITROGEN 36 MG/DL (7-18); CALCIUM LEVEL 7.5 MG/DL (8.8-10.2); CARBON DIOXIDE LEVEL 25 MEQ/L (21-32); CHLORIDE LEVEL 114 MEQ/L (98-107); CREATININE FOR GFR 0.64 MG/DL (0.70-1.30); GLOMERULAR FILTRATION RATE > 60.0 (>35); GLUCOSE, FASTING 150 MG/DL (70-100); POTASSIUM SERUM 3.3 MEQ/L (3.5-5.1); SODIUM LEVEL 144 MEQ/L (136-145)
[2021-03-29] MEDS: SODIUM CHLORIDE 0.9% INJ 10 ML SYR IV SCH ×2 (06:38→17:31)
[2021-03-29] MEDS: SUCRALFATE 1 GM TAB PO SCH ×4 (07:30→21:09)
[2021-03-29] MEDS: HumaLOG INSULIN (NovoLOG) PER UNIT SC SCH ×4 (07:30→21:10)
[2021-03-29] MEDS ORDERED: POTASSIUM CHLORIDE 10 MEQ SR TABLET PO ONE (09:00)
[2021-03-29] MEDS: MIRALAX *UNIT DOSE* 17GM PACKET PO SCH ×2 (09:00→21:00)
[2021-03-29] MEDS: FUROSEMIDE 20 MG TAB PO SCH (09:00)
[2021-03-29] MEDS: TAVALISSE PO SCH ×2 (09:26→21:09)
[2021-03-29] MEDS: PANTOPRAZOLE 40MG VIAL (C9113 PER 1) IV SCH ×2 (09:26→21:10)
[2021-03-29] MEDS: NYSTATIN 100,000 UNITS/GM TOPICAL PWD 15 GM TOP SCH ×2 (09:26→21:10)
[2021-03-29] MEDS: levETIRAcetam INJection 250 MG in D5W 100 ML IV SCH (09:27)
[2021-03-29] MEDS: predniSONE 20 MG TAB PO SCH (09:27)
[2021-03-29] MEDS: ALPRAZolam 0.25 MG TAB PO SCH ×2 (09:28→21:08)
[2021-03-29] MEDS: CETIRIZINE (ZyrTEC) 10 MG TAB PO SCH (09:28)
--- NOTE | 2021-03-29 15:40 | REP ---
INDICATION: Colonoscopy and EGD negative. Small bowel blood loss. COMPARISON: None. TECHNIQUE/RADIOTRACER AND DOSE: Following the intravenous administration of 27.2 mCi technetium 99 M tagged red blood cells, multiple images of the abdomen and pelvis are performed up to 60 minutes post injection. FINDINGS: There is focal radiotracer accumulation in the region of the right transverse colon. There is peristalsis and intermittent passage of radiotracer more distally through the left transverse colon and upper left colon. The findings are consistent with a focus of active GI bleeding in the right transverse colon. IMPRESSION: Findings consistent with a focus of active bleeding in the right transverse colon. <Electronically signed by Silvio Etienne > 03/29/21 [id number]
--- NOTE | 2021-03-29 19:55 | IPNPDOC ---
Subjective Date Seen The patient was seen on 03/29/21. Subjective Chief Complaint/HPI Mr. Samano is an 80 year old male with refractory idiopathic thrombocytopenic purpura and colon carcinoma s/p right hemicolectomy who presents with black tarry stools. This morning, hemoglobin dropped to 6.7. Patient transfused with 2u of blood and a 1u of platelet. Reached out to [facility]. Spoke with [employer]. Agreed to take patient, but no ICU beds available at this time. Recommended calling back later in the day. Called back around 6PM. Still no beds available. Trying to transfer for GI, IR, and hematology. Spoke with Dr. Mallory. Recommended trying NM bleeding scan. Demonstrates bleeding into right transverse colon. Contact Dr. Mallory. He was in there and did not find the source. Recommended having IR to perform angiogram procedure to identify which arterial branch is bleeding. May not be able to do procedure here as we do not have IR managed services consultant this week. Otherwise, IR might not be able to do this procedure and embolization if patient platelet count is low. Also we do not have GI here. Discussed with that patient may not be able to have this procedure down in [facility] with a platelet count of 2, but is hopeful that a custodial worker there may have another plan or option. Still prefer to be in [facility]. Objective Physical Examination General Exam: Positive: Cooperative Eye Exam: Negative: Sclera icteric Neck Exam: Positive: Supple Chest Exam: Positive: Clear to auscultation Heart Exam: Positive: Rate Normal, Regular Rhythm Abdomen Exam: Positive: Normal bowel sounds, Soft; Negative: Tenderness Extremity Exam: Positive: Edema Neuro Exam: Positive: Normal Speech Psych Exam: Positive: Other (More lethargic) Assessment /Plan Assessment Mr. Samano is an 80 year old male with refractory idiopathic thrombocytopenic purpura and colon carcinoma s/p right hemicolectomy who presents with black tarry stools. EGD was performed, demonstrated severe gastritis. General surgery to proceed with possible colonoscopy tomorrow. Patient was drinking contrast today when was present. He had dark tarry stools and some bright red blood per rectum when he drank the bowel prep. Otherwise, will repeat hemoglobin and platelets and needed. Discussed with and she was agreeable to steroids if we watch closely for fungal infection in roin. Will start dexamethasone and topical nystatin. Will also add oral nystatin Completed 4 days of dexamethasone. Will start 1mg/kg prednisone with taper. Patient and agreeable to transfer. [facility] and [facility] would not be able to take patient. Will need to call [facility] for bed availability. Of note, nuclear bleeding scan positive. Patient will need IR to perform angiogram with embolization of affected artery. May be difficult if patient has platelet count of 2. No IR managed services consultant this week. No vascular surgery managed services consultant this week. No GI managed services consultant this week. Would need transfer for IR, Vascular surgery, and GI. Would also need custodial worker at [facility]'s input. Plan/VTE VTE Prophylaxis Ordered?: Yes Plan 1. Acute blood loss anemia -EGD demonstrated severe gastritis, on BID PPI and carafate -Colonoscopy demonstrated blood, but no source. Bleeding from small bowel -Otherwise continue trending CBC and transfusing blood and platelets as needed -Bleeding scan positive with bleed into the right transverse colon 2. Refectory ITP -Heme consulted, recommendations appreciated -S/P IVIG 1g/kg qD for 2 days -Continue Tavalisse 150mg BID - agreed to steroids if we watch for severe yeast infection. Starting topical nystatin powder -Dexamethasone 40mg for 4 days, then prednisone taper. Now on prednisone taper 3. Hypokalemia and hypomagnesemia -Continue to follow and trend 4. Anxiety -Continue Xanax 5. DM -Continue sliding scale insulin 6. AMS -Possibly due to UTI -Urine culture grew Staph hominis resistant to Bactrim -Tried doxycycline, but patient developed rash -Now on vancomycin day 2 7. DVT ppx -TEDs Disposition: Patient and agreeable to transfer. Will need to call [facility] daily for bed availability. Otherwise, pending stability of H&H. VS, I&O, 24H, Fishbone Vital Signs/I&O Vital Signs Date Time Temp Pulse Resp B/P (MAP) Pulse Ox O2 Delivery O2 Flow Rate FiO2 03/29/21 17:24 97.2 87 117/56 99 Room Air 03/29/21 17:08 14 03/26/21 08:20 I&O- Last 24 Hours up to 6 AM 03/29/21 06:00 Intake Total 987 ml Output Total 3400 ml Balance -2413 ml Laboratory Data 24H LABS Laboratory Tests 2 03/28/21 21:13: Bedside Glucose (Misc Panel) 246H 03/28/21 21:26: Vancomycin Level Trough 14.3 03/28/21 22:30: Nucleated Red Blood Cells % (auto) 0.9H, Immature Platelet Fraction 6.8 03/29/21 05:40: Nucleated Red Blood Cells % (auto) 1.6H, Anion Gap 5L, Glomerular Filtration Rate > 60.0, Calcium Level 7.5L 03/29/21 12:38: Bedside Glucose (Misc Panel) 206H 03/29/21 17:15: Bedside Glucose (Misc Panel) 289H CBC/BMP Laboratory Tests 03/28/21 22:30 03/29/21 05:40 Microbiology Microbiology 03/26/21 Respiratory Virus Panel (PCR) (JORGE) - Final, Complete 03/25/21 Blood Culture - Preliminary, Resulted No Growth after 72 hours. All specime... 03/25/21 Blood Culture - Preliminary, Resulted No Growth after 72 hours. All specime... 03/22/21 Urine Culture - Final, Complete Staphylococcus Hominis Ssp Steven HILARY MAYNARD DO March 29, 2021 19:55
[2021-03-29] MEDS: risperiDONE 2 MG TAB PO SCH (21:08)
[2021-03-29] MEDS: RAMELTEON 8 MG TAB (ROZEREM) PO SCH (21:08)
[2021-03-29] MEDS: levETIRAcetam INJection 500 MG in D5W MINI-BAG PLUS 100 ML IV SCH (21:11)
[2021-03-29 21:18] LABS: HEMATOCRIT 24.4 % (42.0-52.0); HEMOGLOBIN 8.2 g/dl (13.5-17.5); MEAN CORPUSCULAR HEMOGLOBIN 31.4 pg (27.0-33.0); MEAN CORPUSCULAR HGB CONC 33.6 g/dl (32.0-36.5); MEAN CORPUSCULAR VOLUME 93.5 fl (80.0-96.0); PLATELET COUNT, AUTOMATED 20 10^3/uL (150-450); RED BLOOD COUNT 2.61 10^6/uL (4.30-6.10); WHITE BLOOD COUNT 5.6 10^3/uL (4.0-10.0)
[2021-03-30] VITALS (13 sets, daily range): BP systolic 88–145; BP diastolic 45–65
[2021-03-30] MEDS: NYSTATIN 500,000 U/5 ML SUSP UDC SS SCH ×5 (00:31→23:24)
[2021-03-30 04:13] LABS: HEMOGLOBIN 7.6 g/dl (13.5-17.5); MEAN CORPUSCULAR HEMOGLOBIN 30.8 pg (27.0-33.0); MEAN CORPUSCULAR VOLUME 93.1 fl (80.0-96.0); RED BLOOD COUNT 2.47 10^6/uL (4.30-6.10); WHITE BLOOD COUNT 5.3 10^3/uL (4.0-10.0)
[2021-03-30 04:14] LABS: PLATELET COUNT, AUTOMATED 6 10^3/uL (150-450)
[2021-03-30 04:36] LABS: BLOOD UREA NITROGEN 39 MG/DL (7-18); CALCIUM LEVEL 7.5 MG/DL (8.8-10.2); CARBON DIOXIDE LEVEL 28 MEQ/L (21-32); CHLORIDE LEVEL 115 MEQ/L (98-107); CREATININE FOR GFR 0.71 MG/DL (0.70-1.30); GLOMERULAR FILTRATION RATE > 60.0 (>35); GLUCOSE, FASTING 158 MG/DL (70-100); POTASSIUM SERUM 3.4 MEQ/L (3.5-5.1); SODIUM LEVEL 145 MEQ/L (136-145)
[2021-03-30] MEDS: SODIUM CHLORIDE 0.9% INJ 10 ML SYR IV SCH ×2 (05:18→18:08)
[2021-03-30] MEDS ORDERED: POTASSIUM CHLORIDE 10 MEQ SR TABLET PO ONE (08:15)
[2021-03-30] MEDS: PANTOPRAZOLE 40MG VIAL (C9113 PER 1) IV SCH ×2 (08:16→22:58)
[2021-03-30] MEDS: levETIRAcetam INJection 250 MG in D5W 100 ML IV SCH (08:16)
[2021-03-30] MEDS: HumaLOG INSULIN (NovoLOG) PER UNIT SC SCH ×4 (08:17→21:00)
[2021-03-30] MEDS: ALPRAZolam 0.25 MG TAB PO SCH ×2 (08:17→22:58)
[2021-03-30] MEDS: SUCRALFATE 1 GM TAB PO SCH ×4 (08:17→22:57)
[2021-03-30] MEDS: FUROSEMIDE 20 MG TAB PO SCH (08:17)
[2021-03-30] MEDS: CETIRIZINE (ZyrTEC) 10 MG TAB PO SCH (08:18)
[2021-03-30] MEDS: predniSONE 20 MG TAB PO SCH (08:18)
[2021-03-30] MEDS: TAVALISSE PO SCH ×2 (08:18→21:00)
[2021-03-30] MEDS: NYSTATIN 100,000 UNITS/GM TOPICAL PWD 15 GM TOP SCH ×2 (08:19→23:00)
[2021-03-30] MEDS: MIRALAX *UNIT DOSE* 17GM PACKET PO SCH ×2 (08:19→21:00)
[2021-03-30 16:27] LABS: EOS % 0.2 % (0.0-3.0); HEMATOCRIT 31.9 % (42.0-52.0); LYMPH # 0.3 10^3/uL (1.5-5.0); LYMPH % 5.9 % (24.0-44.0); MEAN CORPUSCULAR HGB CONC 32.9 g/dl (32.0-36.5); MEAN CORPUSCULAR VOLUME 91.1 fl (80.0-96.0); MONO # 0.1 10^3/uL (0.0-0.8); MONO % 1.8 % (2.0-8.0); NEUTROPHILS # 5.2 10^3/uL (1.5-8.5); NEUTROPHILS % 91.7 % (36.0-66.0); WHITE BLOOD COUNT 5.6 10^3/uL (4.0-10.0)
[2021-03-30 16:35] LABS: INR 1.02; PROTHROMBIN TIME 13.6 SECONDS (12.5-14.3)
[2021-03-30 16:36] LABS: PARTIAL THROMBOPLASTIN TIME 23.4 SECONDS (24.2-38.5)
[2021-03-30 16:37] LABS: HEMOGLOBIN 10.5 g/dl (13.5-17.5); PLATELET COUNT, AUTOMATED 3 10^3/uL (150-450)
[2021-03-30 16:39] LABS: D-DIMER QUANT 1702.43 ng/ml (<500)
--- NOTE | 2021-03-30 20:04 | IPNPDOC ---
Date Seen The patient was seen on 03/30/21. Progress Note Mr. Samano is an 80 year old male with refractory idiopathic thrombocytopenic purpura and colon carcinoma s/p right hemicolectomy who presents with black tarry stools. This morning, hemoglobin dropped to 6.7. Patient transfused with 2u of blood and a 1u of platelet. Reached out to [facility]. Spoke with [employer]. Agreed to take patient, but no ICU beds available at this time. Recommended calling back later in the day. Called back around 6PM. Still no beds available. Trying to transfer for GI, IR, and hematology. Spoke with Dr. Mallory. Recommended trying NM bleeding scan. Demonstrates bleeding into right transverse colon. Contact Dr. Mallory. He was in there and did not find the source. Recommended having IR to perform angiogram procedure to identify which arterial branch is bleeding. May not be able to do procedure here as we do not have IR component engineer this week. Otherwise, IR might not be able to do this procedure and embolization if patient platelet count is low. Also we do not have GI here. Discussed with that patient may not be able to have this procedure down in [facility] with a platelet count of 2, but is hopeful that a tester electronic scale there may have another plan or option. Still prefer to be in [facility]. Objective Physical Examination General Exam: Positive: Cooperative Eye Exam: Negative: Sclera icteric Neck Exam: Positive: Supple Chest Exam: Positive: Clear to auscultation Heart Exam: Positive: Rate Normal, Regular Rhythm Abdomen Exam: Positive: Normal bowel sounds, Soft; Negative: Tenderness Extremity Exam: Positive: Edema Neuro Exam: Positive: Normal Speech Psych Exam: Positive: Other (More lethargic) Assessment /Plan Assessment Mr. Samano is an 80 year old male with refractory idiopathic thrombocytopenic purpura and colon carcinoma s/p right hemicolectomy who presents with black tarry stools. EGD was performed, demonstrated severe gastritis. General surgery to proceed with possible colonoscopy tomorrow. Patient was drinking contrast today when was present. He had dark tarry stools and some bright red blood per rectum when he drank the bowel prep. Otherwise, will repeat hemoglobin and platelets and needed. Discussed with and she was agreeable to steroids if we watch closely for fungal infection in groin. Will start dexamethasone and topical nystatin. Will also add oral nystatin Completed 4 days of dexamethasone. Will start 1mg/kg prednisone with taper. Patient and agreeable to transfer. [facility] and [place] would not be able to take patient. Will need to call [facility] for bed availability. Of note, nuclear bleeding scan positive. Patient will need IR to perform angiogram with embolization of affected artery. May be difficult if patient has platelet count of 2. No IR component engineer this week. No vascular surgery component engineer this week. No GI component engineer this week. Would need transfer for IR, Vascular surgery, and GI. Would also need tester electronic scale at [facility]'s input. Plan/VTE VTE Prophylaxis Ordered?: Yes Plan 1. Acute blood loss anemia -EGD demonstrated severe gastritis, on BID PPI and carafate -Colonoscopy demonstrated blood, but no source. Bleeding from small bowel -Otherwise continue trending CBC and transfusing blood and platelets as needed -Bleeding scan positive with bleed into the right transverse colon 2. Refectory ITP -Heme consulted, recommendations appreciated -S/P IVIG 1g/kg qD for 2 days -Continue Tavalisse 150mg BID - agreed to steroids if we watch for severe yeast infection. Starting topical nystatin powder -Dexamethasone 40mg for 4 days, then prednisone taper. Now on prednisone taper 3. Hypokalemia and hypomagnesemia -Continue to follow and trend 4. Anxiety -Continue Xanax 5. DM -Continue sliding scale insulin 6. AMS -Possibly due to UTI -Urine culture grew Staph hominis resistant to Bactrim -Tried doxycycline, but patient developed rash -Now on vancomycin day 2 7. DVT ppx -TEDs Disposition: Patient and agreeable to transfer. Will need to call [facility] daily for bed availability. Otherwise, pending stability of H&H. VS, I&O, 24H, Fishbone Vital Signs/I&O Vital Signs Date Time Temp Pulse Resp B/P (MAP) Pulse Ox O2 Delivery O2 Flow Rate FiO2 03/30/21 16:00 97.3 83 18 119/58 (78) 98 Room Air 03/26/21 08:20 I&O- Last 24 Hours up to 6 AM0 03/30/21 06:00 Intake Total 1173 ml Output Total 1075 ml Balance 98 ml Laboratory Data 24H LABS Laboratory Tests 2 03/29/21 20:54: Bedside Glucose (Misc Panel) 303H 03/29/21 21:04: Nucleated Red Blood Cells % (auto) 0.5H 03/30/21 04:03: Nucleated Red Blood Cells % (auto) 0.6H, Immature Platelet Fraction 28.1H, Anion Gap 2L, Glomerular Filtration Rate > 60.0, Calcium Level 7.5L 03/30/21 11:49: Bedside Glucose (Misc Panel) 205H 03/30/21 16:02: Immature Granulocyte % (Auto) 0.4, Neutrophils (%) (Auto) 91.7H, Lymphocytes (%) (Auto) 5.9L, Monocytes (%) (Auto) 1.8L, Eosinophils (%) (Auto) 0.2, Basophils (%) (Auto) 0.0, Neutrophils # (Auto) 5.2, Lymphocytes # (Auto) 0.3L, Monocytes # (Auto) 0.1, Eosinophils # (Auto) 0.0, Basophils # (Auto) 0.0, Nucleated Red Blood Cells % (auto) 0.5H 03/30/21 16:15: Prothrombin Time 13.6, Prothromb Time International Ratio 1.02, Activated Partial Thromboplast Time 23.4L, Fibrinogen 199L, D-Dimer, Quantitative 1702.43H 03/30/21 18:02: Bedside Glucose (Misc Panel) 271H CBC/BMP Laboratory Tests 03/29/21 21:04 03/30/21 04:03 03/30/21 16:02 Microbiology Microbiology 03/26/21 Respiratory Virus Panel (PCR) (JORGE) - Final, Complete 03/25/21 Blood Culture - Final, Complete NO GROWTH AFTER 5 DAYS 03/25/21 Blood Culture - Final, Complete NO GROWTH AFTER 5 DAYS 03/22/21 Urine Culture - Final, Complete Staphylococcus Hominis Ssp Steven ULYSSES RODRIGUEZ MD March 30, 2021 20:04
[2021-03-30] MEDS: levETIRAcetam INJection 500 MG in D5W MINI-BAG PLUS 100 ML IV SCH (21:00)
[2021-03-30] MEDS: risperiDONE 2 MG TAB PO SCH (22:57)
[2021-03-30] MEDS: RAMELTEON 8 MG TAB (ROZEREM) PO SCH (22:57)
[2021-03-31] VITALS: BP 111/55
[2021-03-31 04:00] VITALS: BP 114/55
[2021-03-31] MEDS: NYSTATIN 500,000 U/5 ML SUSP UDC SS SCH ×2 (05:05→11:33)
[2021-03-31] MEDS: SODIUM CHLORIDE 0.9% INJ 10 ML SYR IV SCH (05:05)
[2021-03-31 05:33] LABS: HEMATOCRIT 26.2 % (42.0-52.0); HEMOGLOBIN 8.7 g/dl (13.5-17.5); MEAN CORPUSCULAR HEMOGLOBIN 30.4 pg (27.0-33.0); MEAN CORPUSCULAR HGB CONC 33.2 g/dl (32.0-36.5); MEAN CORPUSCULAR VOLUME 91.6 fl (80.0-96.0); RED BLOOD COUNT 2.86 10^6/uL (4.30-6.10); WHITE BLOOD COUNT 5.5 10^3/uL (4.0-10.0)
[2021-03-31 05:35] LABS: PLATELET COUNT, AUTOMATED 2 10^3/uL (150-450)
[2021-03-31 06:03] LABS: BLOOD UREA NITROGEN 47 MG/DL (7-18); CALCIUM LEVEL 8.3 MG/DL (8.8-10.2); CARBON DIOXIDE LEVEL 26 MEQ/L (21-32); CHLORIDE LEVEL 111 MEQ/L (98-107); GLOMERULAR FILTRATION RATE > 60.0 (>35); GLUCOSE, FASTING 142 MG/DL (70-100); POTASSIUM SERUM 3.4 MEQ/L (3.5-5.1); SODIUM LEVEL 143 MEQ/L (136-145)
[2021-03-31 07:27] VITALS: BP 98/51
[2021-03-31] MEDS ORDERED: POTASSIUM CHLORIDE 10 MEQ SR TABLET PO ONE (07:35)
[2021-03-31] MEDS: ALPRAZolam 0.25 MG TAB PO SCH (08:27)
[2021-03-31] MEDS: HumaLOG INSULIN (NovoLOG) PER UNIT SC SCH ×2 (08:27→11:33)
[2021-03-31] MEDS: TAVALISSE PO SCH (08:27)
[2021-03-31] MEDS: CETIRIZINE (ZyrTEC) 10 MG TAB PO SCH (08:28)
[2021-03-31] MEDS: FUROSEMIDE 20 MG TAB PO SCH (08:28)
[2021-03-31] MEDS: MIRALAX *UNIT DOSE* 17GM PACKET PO SCH (08:28)
[2021-03-31] MEDS: SUCRALFATE 1 GM TAB PO SCH ×2 (08:28→11:33)
[2021-03-31] MEDS: PANTOPRAZOLE 40MG VIAL (C9113 PER 1) IV SCH (08:29)
[2021-03-31] MEDS: levETIRAcetam INJection 250 MG in D5W 100 ML IV SCH (08:29)
[2021-03-31] MEDS: NYSTATIN 100,000 UNITS/GM TOPICAL PWD 15 GM TOP SCH (08:29)
[2021-03-31] MEDS ORDERED: predniSONE 20 MG TAB PO SCH (09:00)
[2021-03-31 12:00] VITALS: BP 106/51
--- NOTE | 2021-03-31 15:15 | DS.PDOC ---
Discharge Summary General Date of Admission Mar 18, 2021 at 13:55 Date of Discharge 03/31/21 Discharge Summary PROCEDURES PERFORMED DURING STAY: Upper GI endoscopy on 03/27/[address] Mallory Findings: There is no endoscopic evidence of bleeding, areas of erosion or esophagitis in the entire esophagus. Scattered mild inflammation characterized by adherent blood and congestion (edema) was found in the cardia and in the gastric body. The first portion of the duodenum and second portion of the duodenum were normal. Impression: - Acute gastritis. - Normal first portion of the duodenum and second portion of the duodenum. - No specimens collected. Colonoscopy (03/27/21) by Dr. Mallory: Findings: Hemorrhoids were found on perianal exam. Colon wall is stained with red blood throughout its course, only small amount of clotted blood and hematin specks mostly in the rectum. Patient has had prior extended right colectomy and fairly short left over colon. Copious lavage was performed to inspect the colon wall for active bleeding. A few spots with small amunt of slow oozing near the enterocolonic anastomosis was burned with apc. Colonoscopy performed 20 cms past the anastomosis and still with blood past the reach of the colonoscope. No active bleeding at the visualized urbano of the small bowel. While I was at the anastomosis, after lavaging the small bowel another gush of relatively fresh blood returned to the colon. i went back to the small bowel and again did not see past 20 cms and again lavaged the urbano, and no active bleeding there. So main site of bleeding is small bowel and not able to be reached by the colonoscope. Coagulation for hemostasis using argon plasma at 0.3 liters/minute and 20 shore was Successful, but not the main site of bleeding. Red blood was found in the entire colon. The ileum, 20 cm from the ileocolonic anastomosis contained red blood. No additional abnormalities were found on retroflexion. Impression: - Hemorrhoids found on perianal exam. - Blood in the entire examined colon. - Blood in the ileum, 20 cm from the ileocolonic anastomosis. - No specimens collected. Recommendation: - Discussed the findings with his and with the hospitalist. I feel this is more a "medical bleed" due to the very low platelet count. I could not discount a specific lesion further upstream at the small bowel. Suggest doing a bleeding scan and speak to interventional radiology for possible angiogram. Though we also need to address more aggressively the very low platelet. If this is from the ITP, then may not be able to be managed by angiogram. Other options iclude transfer to a tertiary level care for enteroscopy. COMPLICATIONS/CHIEF COMPLAINT: Itp,Severe Anemia, Gi Bleed. HISTORY OF PRESENT ILLNESS: 80-year-old male with past medical history as indicated presents for one day history of black stools. Patient also notes dizziness and lightheadedness. He states roughly one week ago, he did have a fall, however, he attributes this fall to losing his balance. Most of history was obtained from his at bedside. This morning he denies chest pain, abdominal pain, nausea or vomiting. 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 #Dementia #aortic valve stenosis s/p bioprosthetic aortic valve replacement, subsequent repair? #carotid artery disease s/p CEA 2007 #CAD/stents #HLD #spinal stenosis #hx endocarditis with septic emboli HOSPITAL COURSE: 1. Acute blood loss anemia -EGD demonstrated severe gastritis, on BID PPI and carafate -Colonoscopy demonstrated blood, but no source per Dr. Mallory (general surgery) -Bleeding scan positive with bleed into the right transverse colon - in total, patient requried 23 units of pRBC, and 12 units of PLTs. Last pRBC transfusion was on 03/30/21 for a Hgb of 7.6. After 2 units pRBC, hemoglobin improved to 10.5. Upon DC to [place]. -Per Dr. Mallory, it is unlikely that bleeding is coming from R colon given that the patient had a partial colectomy of the R transverse in 2018, and it is possible that the bleeding is coming from the small bowel. Recommended discussion with IR, Dr. Davis about possible embolization vs transfer to a larger center with GI abilities for advanced endoscopy. - I discussed the case with Dr. Davis on 5/12/21. She recommended I transfer patient to a larger facility, as the bleeding risk of IR procedure is very high given severe thrombocytopenia due to ITP. - I attempted to transfer patient to [facility] but they had not beds. Patient was previously attempted to be transferred to [facility] and after review by canteen manager, it was approved but not yet accepted by receiving MD. [facility] has had no available beds for the past 2 days. - I reached out to [facility] in [place], and discussed the need for transfer with hospitalist Dr. León and subsequently Dr. Almendarez in Intensive Care, who ultimately accepted the patient. The need for transfer was explained to be for hematology, interventional radiology and gastroenterology services, as the patient had required transfusion of 23 units of pRBC and 12 units of PLTs, without a clear source of GI bleeding, and further complicated by severe ITP with platelets ranging from 2 to 20. I explained need for higher level of care and patient was accepted by Dr. Almendarez. - Patient was accepted at [facility], and family decided to proceed with transfer given its proximity to [place], [place]. 2. Refectory ITP -Heme consulted, recommendations appreciated -S/P IVIG 1g/kg qD for 2 days -Continue Tavalisse 150mg BID (patient's home med) -per hematology, continuing prednisone 60 mg/day PO. - patient's platelet counts have not been responding to IVIG and prednisone,patient had previously been on Nplate and received last dose in 02/2021, which had some positive effect on PLT counts but was discontinued due to facial rash per hematology consult note. It is possible that Nplate could be attempted again per Dr. Quiroz, but is not available for inpatient use at [facility] per heme. - recommending transfer to larger center/higher level of care for ongoing hematology services 3. Hypokalemia and hypomagnesemia -continue to correct electrolyte abnormalities as need. 4. Anxiety -Continue Xanax 5. DM -Continue sliding scale insulin - FSBS AC and HS. 6. AMS/encephalopathy superimposed on likely underlying dementia -Possibly due to UTI vs acute blood loss anemia vs delirium 2/2 underlying dementia -Urine culture grew Staph hominis resistant to Bactrim, however < 100,000 colonies -Tried doxycycline, but patient developed rash - discontinued antibiotics 7. DVT ppx -TEDs, SCDs Disposition: Patient and are agreeable to transfer to [facility] given its proximity. DISCHARGE MEDICATIONS: Please see below. ALLERGIES: Please see below. PHYSICAL EXAMINATION ON DISCHARGE: VITAL SIGNS: please see below General: NAD, comfortable HEENT: PERRLA, EOMI, sclerae clear Neck: supple, normal ROM, no JVD Respiratory: lungs CTAB, no wheeze, no rales, no crackles CVS: RRR, normal S1, S2, no murmurs Abdo: soft, no masses, no hepatosplenomegaly, BS+, no rebound tenderness Extremities: 1+ edema MSK: no joint deformities, normal ROM Neuro: no focal neuro deficits, moving all 4 extremities, CN2-12 intact. Strength 5/5 in all 4 extremities. No nystagmus. Psych: calm, cooperative, AAO x 1-2 LABORATORY DATA: Please see below. IMAGING: NM GI Blood Loss Study (03/29/21): FINDINGS: There is focal radiotracer accumulation in the region of the right transverse colon. There is peristalsis and intermittent passage of radiotracer more distally through the left transverse colon and upper left colon. The findings are consistent with a focus of active GI bleeding in the right transverse colon. IMPRESSION: Findings consistent with a focus of active bleeding in the right transverse colon. Head CT wo contrast (03/25/21): FINDINGS: Brain: The brain demonstrates diffuse volume loss. There is white matter hypodensity most consistent with chronic small vessel ischemic change. Cerebral ventricles: The ventricles and CSF spaces are prominent related to generalized volume loss unchanged. Bones/joints: No acute fracture. Paranasal sinuses: There are retention cysts/polyps in the left maxillary sinus. There is mucoperiosteal reaction involving the ethmoid air cells and left sphenoid sinus. Mastoid air cells: Visualized mastoid air cells are well aerated. Vasculature: There is atherosclerotic disease involving the vertebral basilar system and cavernous ICAs. Soft tissues: Unremarkable. IMPRESSION: 1. Atrophy and the sequela prior small vessel ischemia. 2. There is no acute intracranial abnormality. CXR (03/18/21): FINDINGS: There is no acute infiltrate or pulmonary edema. Lungs are clear. The heart is not significantly enlarged. The mediastinal silhouette is unremarkable. The visualized osseous structures are intact.Multiple sternal wires are present. IMPRESSION: No acute pulmonary disease. PROGNOSIS: fair ACTIVITY: As tolerated DIET: as tolerated DISCHARGE PLAN: Transfer to [facility] for interventional radiology, gastroenterology and hematology services. Discussed with Dr. Almendarez, [facility], accepted patient for transfer to MICU. DISPOSITION: Transfer to higher level of care, [place], [place]. DISCHARGE CONDITION: Stable TIME SPENT ON DISCHARGE: 35 minutes Vital Signs/I&Os Vital Signs Date Time Temp Pulse Resp B/P (MAP) Pulse Ox O2 Delivery O2 Flow Rate FiO2 03/31/21 12:00 96.8 78 18 106/51 (69) 95 Room Air 03/26/21 08:20 I&O- Last 24 Hours up to 6 AM 03/31/21 05:59 Intake Total 1236 ml Output Total 2850 ml Balance -1614 ml Laboratory Data Labs 24H Laboratory Tests 2 03/30/21 16:02: Immature Granulocyte % (Auto) 0.4, Neutrophils (%) (Auto) 91.7H, Lymphocytes (%) (Auto) 5.9L, Monocytes (%) (Auto) 1.8L, Eosinophils (%) (Auto) 0.2, Basophils (%) (Auto) 0.0, Neutrophils # (Auto) 5.2, Lymphocytes # (Auto) 0.3L, Monocytes # (Auto) 0.1, Eosinophils # (Auto) 0.0, Basophils # (Auto) 0.0, Nucleated Red Blood Cells % (auto) 0.5H 03/30/21 16:15: Prothrombin Time 13.6, Prothromb Time International Ratio 1.02, Activated Partial Thromboplast Time 23.4L, Fibrinogen 199L, D-Dimer, Quantitative 1702.43H 03/30/21 18:02: Bedside Glucose (Misc Panel) 271H 03/30/21 22:50: Bedside Glucose (Misc Panel) 250H 03/31/21 05:15: Nucleated Red Blood Cells % (auto) 0.5H, Immature Platelet Fraction 25.7H, Anion Gap 6L, Glomerular Filtration Rate > 60.0, Calcium Level 8.3L 03/31/21 11:13: Bedside Glucose (Misc Panel) 254H 03/31/21 15:05: CBC/BMP Laboratory Tests 03/30/21 16:02 03/31/21 05:15 FSBS Laboratory Tests Test 03/30/21 18:02 03/30/21 22:50 03/31/21 11:13 Range/Units Bedside Glucose (Misc Panel) 271 250 254 83-110 MG/DL Microbiology Microbiology 03/26/21 Respiratory Virus Panel (PCR) (JORGE) - Final, Complete 03/25/21 Blood Culture - Final, Complete NO GROWTH AFTER 5 DAYS 03/25/21 Blood Culture - Final, Complete NO GROWTH AFTER 5 DAYS 03/22/21 Urine Culture - Final, Complete Staphylococcus Hominis Ssp Steven Discharge Medications Scheduled Alprazolam (Alprazolam) 0.25 Mg Tablet, 0.25 MG PO BID, (Reported) Bisoprolol Fumarate (Bisoprolol Fumarate) 10 Mg Tablet, 10 MG PO DAILY, (Reported) Cetirizine HCl (Cetirizine HCl) 10 Mg Tablet, 10 MG PO DAILY, (Reported) Fostamatinib Disodium (Tavalisse) 150 Mg Tablet, 150 MG PO BID, (Reported) Insulin Glargine,Hum.rec.anlog (Lantus Solostar) 100 Unit/1 Ml Insuln.pen, 26 UNITS SC DAILY, (Reported) Levetiracetam (Levetiracetam) 250 Mg Tablet, 500 MG PO QHS, (Reported) Levetiracetam (Levetiracetam) 250 Mg Tablet, 250 MG PO QAM, (Reported) Magnesium Chloride (Mag64) 64 Mg Tablet.dr, 64 MG PO DAILY, (Reported) Melatonin (Melatonin) 10 Mg Capsule, 10 MG PO QHS, (Reported) Nystatin (Nystop) 60 Gm Powder, 1 DOSE TOP BID Pantoprazole Sodium (Pantoprazole Sodium) 40 Mg Tablet.dr, 40 MG PO DAILY, (Reported) Potassium Chloride (Potassium Chloride) 10 Meq Capsule.er, 10 MEQ PO QHS, (Reported) Prednisone (Prednisone) 20 Mg Tablet, 60 MG PO DAILY Risperidone (Risperidone) 1 Mg Tablet, 2 MG PO QHS, (Reported) Sucralfate (Sucralfate) 1 Gm Tablet, 1 GM PO ACHS Scheduled PRN Diclofenac Sodium (Voltaren) 100 Gm Gel..gram., 1 GRAM TOP QID PRN for PAIN, (Reported) APPLY TO RIGHT SHOULDER Docusate Sodium (Stool Softener) 100 Mg Capsule, 100 MG PO BID PRN for CONSTIPA TION, (Reported) Furosemide (Furosemide) 20 Mg Tablet, 20 MG PO DAILY PRN for EDEMA, (Reported) Hydrocodone/Acetaminophen (Hydrocodone-Acetamin 5-325 mg) 1 Each Tablet, 2 TAB PO QID PRN for PAIN, (Reported) Oxycodone/Acetaminophen (Oxycodone-Acetaminophen 5-325) 1 Each Tablet, 2 TAB PO Q6HP PRN for SEVERE PAIN (PS 8-10) Allergies Coded Allergies: cephalexin (Verified Allergy, Severe, made his face peel, 11/04/20) procaine (Verified Allergy, Severe, difficulty breathing, 02/04/20) Penicillins (Verified Allergy, Intermediate, swelling, 02/04/20) ULYSSES RODRIGUEZ MD March 31, 2021 15:15
[2021-03-31 15:18] LABS: HEMATOCRIT 29.1 % (42.0-52.0); HEMOGLOBIN 9.6 g/dl (13.5-17.5); LYMPH # 0.5 10^3/uL (1.5-5.0); LYMPH % 8.7 % (24.0-44.0); MEAN CORPUSCULAR HEMOGLOBIN 30.2 pg (27.0-33.0); MEAN CORPUSCULAR VOLUME 91.5 fl (80.0-96.0); MONO # 0.1 10^3/uL (0.0-0.8); NEUTROPHILS # 4.8 10^3/uL (1.5-8.5); NEUTROPHILS % 88.7 % (36.0-66.0); RED BLOOD COUNT 3.18 10^6/uL (4.30-6.10); WHITE BLOOD COUNT 5.4 10^3/uL (4.0-10.0)
[2021-03-31 15:22] LABS: PLATELET COUNT, AUTOMATED 2 10^3/uL (150-450)
[2021-03-31 16:00] VITALS: BP 119/66
[2021-03-31] MEDS ORDERED: PERCOCET PO (17:09)
[2021-03-31] MEDS ORDERED: SUCR1TA PO (17:09)
[2021-03-31] MEDS ORDERED: PRED20TA PO (17:09)
[2021-03-31] MEDS ORDERED: NYST10006 TOP (17:09)
[2021-04-01] MEDS ORDERED: predniSONE 50 MG TAB PO ONE (09:00)
[2021-04-02] MEDS ORDERED: predniSONE 50 MG TAB PO ONE (09:00)
[2021-04-03] MEDS ORDERED: predniSONE 20 MG TAB PO SCH (09:00)
[2021-04-06] MEDS ORDERED: predniSONE 10 MG TAB PO ONE (09:00)
== END 2021-03-31 17:12 | disposition short-term general hospital (02) | DRG 813 ==
LOC: M ED 12:04 → EDBD 12:04 → M ED INP 13:55 → ENRESERV 15:05 → M PCU 15:27
PROVIDERS: ADMIT Internal Medicine; ATTEND Family Medicine
PROC: 30233N1 Transfusion of Nonautologous Red Blood Cells into Peripheral Vein, Percutaneous Approach (ICD-10-PCS; 2021-03-18)
PROC: 30233R1 Transfusion of Nonautologous Platelets into Peripheral Vein, Percutaneous Approach (ICD-10-PCS; 2021-03-18)
PROC: 0DJ08ZZ Inspection of Upper Intestinal Tract, Via Natural or Artificial Opening Endoscopic (ICD-10-PCS; principal; 2021-03-19 10:30)
PROC: 0DJD8ZZ Inspection of Lower Intestinal Tract, Via Natural or Artificial Opening Endoscopic (ICD-10-PCS; 2021-03-27)
PROC: 0DJ08ZZ Inspection of Upper Intestinal Tract, Via Natural or Artificial Opening Endoscopic (ICD-10-PCS; 2021-03-27)
DX: D69.3 Immune thrombocytopenic purpura (principal); D62 Acute posthemorrhagic anemia; K92.1 Melena; I50.32 Chronic diastolic (congestive) heart failure; I47.2 Ventricular tachycardia; G93.40 Encephalopathy, unspecified; N39.0 Urinary tract infection, site not specified; E11.9 Type 2 diabetes mellitus without complications; I11.0 Hypertensive heart disease with heart failure; K64.8 Other hemorrhoids; Z85.038 Personal history of other malignant neoplasm of large intestine; G40.909 Epilepsy, unspecified, not intractable, without status epilepticus; F03.90 Unspecified dementia, unspecified severity, without behavioral disturbance, psychotic disturbance, mood disturbance, and anxiety; K21.9 Gastro-esophageal reflux disease without esophagitis; I25.10 Atherosclerotic heart disease of native coronary artery without angina pectoris; Z95.2 Presence of prosthetic heart valve; E87.6 Hypokalemia; E83.42 Hypomagnesemia; F41.9 Anxiety disorder, unspecified; Z79.4 Long term (current) use of insulin; Z79.899 Other long term (current) drug therapy; Z88.0 Allergy status to penicillin; Z88.8 Allergy status to other drugs, medicaments and biological substances; E53.8 Deficiency of other specified B group vitamins; K29.00 Acute gastritis without bleeding; R21 Rash and other nonspecific skin eruption

== ENCOUNTER 2021-04-23 15:30 | Inpatient (IN) | payer MEDICARE, MEDICAID ==
[~2021-04-23] VITALS: Ht 180.3 cm; Wt 80.5 kg
[~2021-04-23 15:30] MED LIST changes: -HYDR-3781 PO; +HYDR-4966 PO; -NITR100C2 PO; -NYST1POW9 TOP
--- NOTE | 2021-04-23 18:18 | REP ---
INDICATION: weakness COMPARISON: 03/18/2021 TECHNIQUE: Portable AP view of the chest FINDINGS: The mediastinum and cardiac silhouette are stable and within normal limits for portable technique. The lung herrera demonstrate chronic changes without acute consolidation, effusion, or pneumothorax. Skeletal structures are intact. IMPRESSION: No acute cardiopulmonary process appreciated. <Electronically signed by Sergio Olmedo > 04/23/21 [id number]
[2021-04-23 19:41] LABS: RSV AMPLIFICATION NEGATIVE (NEGATIVE)
[2021-04-23] MEDS ORDERED: PRED20TA PO (19:47)
[2021-04-23] MEDS ORDERED: NYST1POW9 TOP (19:47)
--- NOTE | 2021-04-23 20:27 | REPVR ---
PROCEDURE INFORMATION: Exam: CT Head Without Contrast Exam date and time: 04/23/2021 7:53 PM Age: 81 years old Clinical indication: Altered mental status/memory loss; Confusion or disorientation TECHNIQUE: Imaging protocol: Computed tomography of the head without contrast. Radiation optimization: All CT scans at this facility use at least one of these dose optimization techniques: automated exposure control; mA and/or kV adjustment per patient size (includes targeted exams where dose is matched to clinical indication); or iterative reconstruction. COMPARISON: CT Head without contrast 03/25/2021 6:56 AM FINDINGS: Brain: No intracranial mass, focal mass effect or midline shift. No acute intracranial hemorrhage. Advanced decreased attenuation in periventricular/centrum semiovale white matter. No focal effacement of cortical sulci to indicate acute cortical infarct. Stable, prior right occipital infarct with volume loss, unchanged since CT angiogram of the head July 09, 2020. Prominent ventricles and CSF spaces suggest parenchymal volume loss. Paranasal sinuses: Visualized paranasal sinuses are unremarkable. Mastoid air cells: Mastoid air cells are normally aerated. Orbital cavity: Visualized globes and orbits are unremarkable. Bones/joints: No calvarial fracture or destructive process. Soft tissues: No focal extracranial soft tissue swelling. IMPRESSION: 1. No acute intracranial abnormality. 2. Atrophy, remote small distribution infarct and chronic microangiopathic change in supratentorial white matter. Electronically signed by: Fabiano George On 04/23/2021 20:26:45 PM
[2021-04-23] MEDS: DOCUSATE SODIUM 100MG CAPSULE PO SCH (21:00)
--- NOTE | 2021-04-23 21:40 | ECGEPIP ---
[facility] - ED Test Date: 2021-04-23 Pat Name: OMID JACKSON Department: Room: - Gender: Male Social Worker Masters: JARRED : 1940 Requested By: Russel Phillips Order Number: [id number] Reading MD: Russel Crum Measurements Intervals [place] Rate: 72 P: -5 HI: 138 QRS: -29 QRSD: 84 T: 67 QT: 386 QTc: 422 Interpretive Statements Sinus rhythm with premature atrial complexes Septal infarct , age undetermined INCOMPLETE RIGHT BUNDLE BRANCH BLOCK NONSPECIFIC T WAVE ABNORMALITY(S) SIMILAR TO 03/18/21 Electronically Signed on 04-23-2021 21:39:43 EDT by Russel Crum
[2021-04-23] MEDS ORDERED: bisoproloL fumarate 5 MG TAB PO ONE (22:25)
[2021-04-23 22:38] LABS: HEMATOCRIT 30.1 % (42.0-52.0); HEMOGLOBIN 9.5 g/dl (13.5-17.5); LYMPH # 0.6 10^3/uL (1.5-5.0); LYMPH % 5.7 % (24.0-44.0); MEAN CORPUSCULAR HEMOGLOBIN 28.8 pg (27.0-33.0); MEAN CORPUSCULAR HGB CONC 31.6 g/dl (32.0-36.5); MEAN CORPUSCULAR VOLUME 91.2 fl (80.0-96.0); MONO # 0.5 10^3/uL (0.0-0.8); MONO % 4.6 % (2.0-8.0); NEUTROPHILS # 9.6 10^3/uL (1.5-8.5); NEUTROPHILS % 89.1 % (36.0-66.0); WHITE BLOOD COUNT 10.8 10^3/uL (4.0-10.0)
[2021-04-23 22:40] LABS: PLATELET COUNT, AUTOMATED 74 10^3/uL (150-450)
[2021-04-23 22:47] LABS: INR 1.02; PROTHROMBIN TIME 13.6 SECONDS (12.5-14.3)
[2021-04-23 22:48] LABS: PARTIAL THROMBOPLASTIN TIME 21.3 SECONDS (24.2-38.5)
[2021-04-23] MEDS: CIPROFLOXACIN 400 MG in IV 1 EA IV SCH (22:48)
[2021-04-23 23:09] LABS: BILIRUBIN,TOTAL 0.3 MG/DL (0.2-1.0); CALCIUM LEVEL 9.1 MG/DL (8.8-10.2); CREATININE FOR GFR 1.26 MG/DL (0.70-1.30); GLOMERULAR FILTRATION RATE 58.5 (>35); MAGNESIUM LEVEL 1.3 MG/DL (1.8-2.4); POTASSIUM SERUM 4.2 MEQ/L (3.5-5.1); TOTAL PROTEIN 6.6 GM/DL (6.4-8.2)
--- NOTE | 2021-04-23 23:39 | HPEPDOC ---
General Date of Admission Apr 23, 2021 at 20:37 Date of Service: Apr 23, 2021 Chief Complaint The patient is a 81-year-old male admitted with a reason for visit of Acute Uti, Altered Mental Satus. Exam Limitations: Dementia, Hard of hearing, Mild cognitive slowing Timing/Duration: Unsure Severity: Moderate Associated Symptoms: Headaches, Loss of appetite, Syncope, Weakness History of Present Illness Mr. Samano, is a 81 year-old elderly male who has significant PMH of Chronic ITP, Dementia, Essential hypertension, Insulin Dependent Diabetes Mellitus, Congestive Heart Failure, CAD s/p stents, Left carotid endarterectomy; coronary artery stents x2, nicotine dependence, GERD, presents to [facility] ER with his reporting patient is experiencing alteration in his mental status, nausea, vomiting, with loss of appetite. Chest x-ray: clear, shows no acute disease process. *Head CT was ordered and it shows no acute disease process with stable infarct, laboratory results show elevated WBC 10.8; H&H 9.5/30.1; Platelets 74; absolute neutrophil 89.1; lactic acid 3.5, pro-BNP 1099; Magnesium 1.3; BUN 35, serum creatinine 1.26 with eGFR 58.5. Urinalysis: urine turbid, +1 protein, +2 blood, positive for nitrites and +3 leukocyte esterase, +2 urine bacteria. Mr. Samano will be admitted to Observation unit on IV antibiotics for Acute UTI with AMS. Home Medications Scheduled Alprazolam (Alprazolam) 0.25 Mg Tablet, 0.25 MG PO BID, (Reported) Bisoprolol Fumarate (Bisoprolol Fumarate) 10 Mg Tablet, 10 MG PO DAILY, (Reported) Cetirizine HCl (Cetirizine HCl) 10 Mg Tablet, 10 MG PO DAILY, (Reported) Folic Acid (Folic Acid) 1 Mg Tablet, 1 MG PO DAILY, (Reported) Insulin Glargine,Hum.rec.anlog (Lantus Solostar) 100 Unit/1 Ml Insuln.pen, 26 UNITS SC DAILY, (Reported) Levetiracetam (Levetiracetam) 250 Mg Tablet, 500 MG PO QHS, (Reported) Levetiracetam (Levetiracetam) 250 Mg Tablet, 250 MG PO QAM, (Reported) Magnesium Chloride (Mag64) 64 Mg Tablet.dr, 64 MG PO DAILY, (Reported) Melatonin (Melatonin) 10 Mg Capsule, 10 MG PO QHS, (Reported) Nystatin (Nystatin Powder) 15 Gm Powder, 1 APLCT TOP BID, (Reported) GROIN Pantoprazole Sodium (Pantoprazole Sodium) 40 Mg Tablet.dr, 40 MG PO DAILY, (Reported) Potassium Chloride (Potassium Chloride) 10 Meq Capsule.er, 10 MEQ PO QHS, (Reported) Prednisone (Prednisone) 20 Mg Tablet, 60 MG PO DAILY, (Reported) PT. STATES DOSE DECREASED TO 50MG STARTING 04/24/21 Risperidone (Risperidone) 1 Mg Tablet, 2 MG PO QHS, (Reported) Sulfamethoxazole/Trimethoprim (Bactrim Ds Tablet) 1 Each Tablet, 1 TAB PO PRN, (Reported) Scheduled PRN Diclofenac Sodium (Voltaren) 100 Gm Gel..gram., 1 GRAM TOP QID PRN for PAIN, (Reported) APPLY TO RIGHT SHOULDER Docusate Sodium (Stool Softener) 100 Mg Capsule, 100 MG PO BID PRN for CONSTIPATION, (Reported) Furosemide (Furosemide) 20 Mg Tablet, 20 MG PO DAILY PRN for EDEMA, (Reported) Hydrocodone/Acetaminophen (Hydrocodone-Acetamin 5-325 mg) 1 Each Tablet, 2 TAB PO QID PRN for PAIN, (Reported) Allergies Coded Allergies: cephalexin (Verified Allergy, Severe, made his face peel, 11/04/20) procaine (Verified Allergy, Severe, difficulty breathing, 02/04/20) Penicillins (Verified Allergy, Intermediate, swelling, 02/04/20) Past Medical History Medical History 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 History of stage I [id number] carcinoma of the ascending colon status post right hemicolectomy Dr. Carvalho 2017 History of B12 deficiency on monthly B12 shot pseudothrombocytopenia, needs EDTA free tube for platelet counts; anxiety; HTN/Hypertensive heart disease; HFpEF - last echo on record 2018; Insulin dependent-DM;GERD;Seizure disorder; Vascular Dementia; CAD s/p CEA 2007; CAD/stents; HLD; spinal stenosis and endocarditis with septic emboli Surgical History aortic valve stenosis s/p bioprosthetic aortic valve replacement, subsequent repair with 2 stents placed; Left carotid endarterectomy, colonoscopy; appendectomy, colon cancer with colon removed 07/2018., carpal tunnel surgical repair-bilateral, left rotator cuff repair Family History Significant Family History: No pertinent family hx Social History * Smoker: current smoker, cigarettes Alcohol: Denies (per ) Drugs: prescription drugs Psychosocial History: Anxiety (per and chart review), Dementia, Emotional problems, Other (Claustrophobic) A-FIB/CHADSVASC A-FIB History Current/History of A-Fib/PAF?: Yes Current PO Anticoag Therapy: No Age/Risk Factor Scoring CHADSVASC: CHADSVASC Response (Comments) Value Age Risk Factor Age >/= 75 years old 2 Gender Risk Factor Male 0 Hx of CHF Yes 1 Hx of HTN Yes 1 Hx of Stroke/TIA/or VTE Yes 2 Hx of Diabetes Yes 1 Hx of Vascular Disease Yes 1 Total 8 Treatment Treatment ordered: NONE Reason Anticoagulant not given: Other Other reason anticoagulant not: Patient has ITP and Colon cancer Review of Systems Constitutional: Reports: Malaise, Other (Unable to assess due to patients decreased cognition. Patients assisted with ROS and HPI); Denies: Chills, Fever, Night Sweats Eyes: Denies: Pain, Vision change ENT: Reports: Ear Pain (tinnitus), Other Symptoms (have dentures); Denies: Head Aches, Dysphagia Skin: Denies: Rash, Lesions, Breakdown Pulmonary: Denies: Dyspnea, Cough Cardiovascular: Denies: Chest Pain, Palpitations, Orthopnea, Paroxysmal Noc. Dyspnea, Lt Headedness Gastrointestinal: Reports: Diarrhea, Other Symptoms (loss of appetite); Denies: Nausea, Vomiting, Abdominal Pain Genitourinary: Reports: Retention (indwelling solis catheter changed before hospital discharge in [place] on 04/16); Denies: Dysuria, Frequency, Incontinence Hematologic: Denies: Bruising, Bleeding Excessively Musculoskeletal: Reports: Back Pain, Shoulder Pain, Leg Pain, Joint Pain, Muscle Pain; Denies: Neck Pain, Spasms Neurological: Reports: Weakness, Change in speech, Confusion (per ), Seiz ures; Denies: Numbness Psych: Reports: Anxiety, Memory Issues; Denies: Depression Physical Examination General Exam: Positive: Alert, Cooperative, No Acute Distress Eye Exam: Positive: PERRLA, Conjunctiva & lids normal ENT Exam: Positive: Atraumatic, Nares Patent Neck Exam: Positive: Supple Chest Exam: Positive: Diminished Heart Exam: Positive: Irregular Rhythm, Normal S1, Normal S2 Abdomen Exam: Positive: Normal bowel sounds, Soft Extremity Exam: Positive: Edema, Swelling Skin Exam: Positive: Other skin issue (multiple forearm skin tares with bandages clean, dry and intact) Neuro Exam: Positive: Other (non-verbal/not answering questions) Psych Exam: Positive: Other (unable to assess) Other physical findings Solis catheter intact with leg bag draining cloudy yellow urine. Vital Signs Vital Signs Date Time Temp Pulse Resp B/P (MAP) Pulse Ox O2 Delivery O2 Flow Rate FiO2 04/23/21 21:00 81 20 169/72 (104) 97 Room Air 04/23/21 19:00 98.3 Laboratory Data Labs 24H Laboratory Tests 2 04/23/21 14:27: Urine Color YELLOW, Urine Appearance TURBIDH, Urine pH 5.0, Urine Specific [place] 1.026, Urine Protein 1+H, Urine Glucose (UA) NEGATIVE, Urine Ketones NEGATIVE, Urine Blood 2+H, Urine Nitrite POSITIVEH, Urine Bilirubin NEGATIVE, Urine Urobilinogen 0.2, Urine Leukocyte Esterase 3+H, Urine WBC (Auto) 9H, Urine RBC (Auto) 5H, Urine Hyaline Casts (Auto) 0, Urine Bacteria (Auto) 2+H, Urine Squamous Epithelial Cells 0, Urine Uric Acid Crystals (Auto) LARGE, Urine Sperm (Auto) 04/23/21 18:52: Coronavirus (COVID-19)(PCR) NEGATIVE, Influenza Type A (RT-PCR) NEGATIVE, Influenza Type B (RT-PCR) NEGATIVE, Respiratory Syncytial Virus (PCR) NEGATIVE Microbiology Microbiology 04/23/21 Urine Culture, Received Pending Problems (1) Altered mental status Status: Acute Problem Text: Mr. 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 AMS secondary to Acute UTI-Acute Plan Admit to Observation unit on continuous pulse oximetry Monitor and re-check labs Urine culture pending Activity up with 2 person assist, high risk for fall (has fallen while hospitalized previously per ) IV antibiotics ciprofloxacin 400 mg q 8 hours Neurological checks q 4 hours Hypomagnesium-Acute Replace with 1 GM of Magnesium IV x 2 runs with one time dose of Mag-Ox 400 mg po due at 0900 Re-assess Mag level Lactic Acidosis-Acute IVF rehydration. Lactic Acid 3.5. Re-check labs. Urinary retention-Chronic Change out Solis catheter (sterile) Monitor I&O Dehydration vs sepsis-Acute Check Lactic acid (3.4) elevated, with no significant increase in total WBC Ordered Procalcitonin; Blood cultures IV F NS at 125ml/hr x 1L (rehydration) x 3 hours then reduce rate to 75ml/hr Hypertensive Heart disease with Compensated CHF-Chronic Monitor vitals q shift and daily weight Cardiac & diabetic diet Continue home medications: BNP is 1099- Lasix 40 mg po given x 1 dose. Insulin Dependent Diabetes Mellitus type 2-Chronic POC glucose AC & HS Initiate hypoglycemia protocol per [facility] hospital policy Continue home Insulin medication, Add Sliding scale insulin SQ AC &HS ITP-chronic Continue care with Toe Former History of GI Bleed-monitor H&H GERD-Chronic continue taking medication (home) Constipation -Chronic Continue home medication/initiate bowel regimen Degenerative Disk Disease-Chronic monitor patient pain Vascular Dementia with behavior disturbances-Chronic Patient can become combative. Am provider will see which mediation may be used as needed for patient if he becomes combative. Insomnia-chronic hold home medication: start Rozerem 8 mg po qhs Nicotine use-chronic Patch 21 mcg topically daily DNR/DNI, is his HCP PPI Prophylaxis: continue home medication , added prn Maalox as needed DVT Prophylaxis: no oral or SQ anti-coagulants due to patients ITP and low Platelet count 50-75. Discharge: pending clinical course (2) Hypomagnesemia Status: Acute (3) Acute UTI Status: Acute (4) Idiopathic thrombocytopenic purpura (ITP) Status: Chronic (5) Difficulty walking Status: Chronic (6) Seizure disorder Status: Chronic (7) Diabetes mellitus Status: Chronic (8) Vascular dementia Status: Chronic (9) Benign prostatic hyperplasia with urinary retention Status: Chronic (10) HTN (hypertension) Status: Chronic (11) Paroxysmal atrial fibrillation Status: Chronic Plan / VTE VTE Prophylaxis Ordered?: Yes VTE Exclusion Mechanical Proph: N/A:VTE Prophy Ordered VTE Exclusion Pharmacological: Bleeding Risk Plan / Urinary Catheter Urinary Catheter: Other Catheter: (admitted with Solis Catheter but needs replacement) Plan Activity: Continue Current (with ambulation assistance x 2) Medications: Bowel Regimen, Start Antibiotics Diagnostics: Check Labs, Repeat Labs in AM, Obtain Cultures Advanced Directives: Do Not Resuscitate (DNR), Do Not Intubate (DNI) (per , HCP), Health Care Proxy (HCP) () LUIS MENDES [facility] Apr 23, 2021 22:05
[2021-04-23 23:53] VITALS: BP 145/67
[2021-04-24] MEDS ORDERED: NS 1,000 ML IV ONE (00:05)
[2021-04-24] MEDS: MAG SULF 1GM/100ML (MAG RUN) 1 GM in IV 1 EA IV SCH ×2 (05:04→06:20)
[2021-04-24 06:00] VITALS: BP 154/87
[2021-04-24 06:14] LABS: ALBUMIN 2.8 GM/DL (3.2-5.2); ALT/SGPT 30 U/L (12-78); BILIRUBIN,TOTAL 0.4 MG/DL (0.2-1.0); BLOOD UREA NITROGEN 29 MG/DL (7-18); CALCIUM LEVEL 8.5 MG/DL (8.8-10.2); CARBON DIOXIDE LEVEL 23 MEQ/L (21-32); CHLORIDE LEVEL 110 MEQ/L (98-107); CREATININE FOR GFR 1.02 MG/DL (0.70-1.30); GLOMERULAR FILTRATION RATE > 60.0 (>35); GLUCOSE, FASTING 83 MG/DL (70-100); POTASSIUM SERUM 3.7 MEQ/L (3.5-5.1); SODIUM LEVEL 140 MEQ/L (136-145); TOTAL PROTEIN 6.5 GM/DL (6.4-8.2)
[2021-04-24] MEDS ORDERED: MAGNESIUM OXIDE 400MG TAB (MAG-OX) PO ONE (09:00)
[2021-04-24] MEDS ORDERED: LEVEMIR (INSULIN DETEMIR) 1 UNITS/0.01ML SC SCH (09:00)
[2021-04-24] MEDS: DOCUSATE SODIUM 100MG CAPSULE PO SCH ×2 (09:42→20:06)
[2021-04-24] MEDS: FUROSEMIDE 40 MG TAB PO SCH (09:42)
[2021-04-24] MEDS: ACETAMINOPHEN TAB 650MG DOSE (2X325MG) PO PRN (09:42)
[2021-04-24] MEDS: CIPROFLOXACIN 400 MG in IV 1 EA IV SCH ×2 (11:54→23:11)
[2021-04-24 14:00] VITALS: BP 151/64
[2021-04-24] MEDS ORDERED: ANALGESIC BALM CRM 3OZ TOP PRN (17:10)
--- NOTE | 2021-04-24 17:11 | IPNPDOC ---
Subjective Date Seen The patient was seen on 04/24/21. Subjective Chief Complaint/HPI Mr. Samano reports that he feels fine. He has no complaints. The caregiver that is with him reports that he is still having a hard time with finding words and forming sentences; basically he is still encephalopathic from her standpoint. General: Reports: ROS Unobtainable (2/2 dementia) Objective Physical Examination General Exam: Positive: Alert, Cooperative, No Acute Distress (he is being fed when I entered the room) Eye Exam: Positive: PERRLA; Negative: Sclera icteric ENT Exam: Positive: Atraumatic, Mucous membr. moist/pink, Nares Patent Neck Exam: Positive: Supple; Negative: Lymphadenopathy Chest Exam: Positive: Diminished Heart Exam: Positive: Irregular Rhythm, Normal S1, Normal S2, Murmurs (there is a 3/6 systolic cresc-decresc murmur noted at the cardiac base) Abdomen Exam: Positive: Normal bowel sounds, Soft; Negative: Tenderness Extremity Exam: Positive: Other (some changes of chronic stasis dermatitis); Negative: Edema Skin Exam: Positive: Other skin issue (multiple forearm skin tares with bandages clean, dry and intact) Neuro Exam: Negative: Normal Speech (he answers simple yes/no questions, but can't really engage in conversation or answer orientatino questions more than that) Psych Exam: Negative: Mental status NL, Memory Intact Assessment /Plan Problems (1) Altered mental status Status: Acute Response to Treatment: Improving Problem Specific Plan: Monitor Clinically Problem Text: His toxic-metabolic encephalopathy is improving, but it has not resolved yet. I think it is related to the UTI, though there isn't really a way to be certain of than until it resolves with treatment of the UTI. Neuro checks are no longer needed. (2) Acute UTI Status: Acute Problem Text: He is still on the IV Cipro. I had hoped that the UCx would be available by later in the afternoon, but it was not. His caregiver reported that she gave him 5 days of Bactrim that she had on hand before bringing him in, so I doubt that will be a viable oral option. We will have to wait to see what the C&S shows before changing him to an oral. (3) Vascular dementia Status: Chronic Problem Text: He currently has some delirium on top of his chronic dementia. Continue home regimen for the dementia. (4) Benign prostatic hyperplasia with urinary retention Status: Chronic Problem Text: He has a chronic catheter for this. This could be part of the issue with his UTI. (5) Hypomagnesemia Status: Acute Problem Text: He has been repleted with both IV and oral Mg. I will order a recheck of his level tomorrow Am. (6) Diabetes mellitus Status: Chronic Problem Text: His fasting glucose was 83 this morning, so I held his basal insulin and did ACHS FSBS as well as an ISS instead. He may resume his basal insulin when he goes home. I suspect his diet is different there than it is here. (7) Idiopathic thrombocytopenic purpura (ITP) Status: Chronic Problem Text: Will monitor his CBC. Continue home regimen for now. (8) Seizure disorder Status: Chronic Problem Text: Continue home regimen. (9) HTN (hypertension) Status: Chronic Problem Text: Continue home regimen. (10) Paroxysmal atrial fibrillation Status: Chronic Problem Text: Continue home regimen. Plan/VTE VTE Prophylaxis Ordered?: Yes VTE Exclusion Mechanical Proph: N/A:VTE Prophy Ordered VTE Exclusion Pharmacological: Bleeding Risk Plan/Urinary Catheter Urinary Catheter: Other Catheter: (admitted with Castro Catheter but needs replacement) Plan Diagnostics: Check Labs, Repeat Labs in AM, Obtain Cultures Anticipated Discharge: Home Disposition Anticipate home in 1-2 days when an adequate oral antibiotic can be identified and his encephalopathy has resolved. VS, I&O, 24H, Fishbone Vital Signs/I&O Vital Signs Date Time Temp Pulse Resp B/P (MAP) Pulse Ox O2 Delivery O2 Flow Rate FiO2 04/24/21 14:00 98.0 75 16 151/64 (93) 98 Room Air I&O- Last 24 Hours up to 6 AM 04/24/21 06:00 Intake Total 1093 ml Output Total 550 ml Balance 543 ml Laboratory Data 24H LABS Laboratory Tests 2 04/23/21 18:52: Coronavirus (COVID-19)(PCR) NEGATIVE, Influenza Type A (RT-PCR) NEGATIVE, Influ raissa Type B (RT-PCR) NEGATIVE, Respiratory Syncytial Virus (PCR) NEGATIVE 04/23/21 22:27: Immature Granulocyte % (Auto) 0.6, Neutrophils (%) (Auto) 89.1H, Lymphocytes (%) (Auto) 5.7L, Monocytes (%) (Auto) 4.6, Eosinophils (%) (Auto) 0.0, Basophils (%) (Auto) 0.0, Neutrophils # (Auto) 9.6H, Lymphocytes # (Auto) 0.6L, Monocytes # (Auto) 0.5, Eosinophils # (Auto) 0.0, Basophils # (Auto) 0.0, Nucleated Red Blood Cells % (auto) 0.2H, Prothrombin Time 13.6, Prothromb Time International Ratio 1.02, Activated Partial Thromboplast Time 21.3L, Anion Gap 10, Glomerular Filtration Rate 58.5, Lactic Acid Level 3.5*H, Calcium Level 9.1, Magnesium Level 1.3L, Total Bilirubin 0.3, Aspartate Amino Transf (AST/SGOT) 18, Alanine Aminotransferase (ALT/SGPT) 32, Alkaline Phosphatase 99, VR-Zsg-M-Type Natriuretic Peptide 1099H, Total Protein 6.6, Albumin 3.0L, Albumin/Globulin Ratio 0.8, Procalcitonin <0.05 04/24/21 05:34: Anion Gap 7L, Glomerular Filtration Rate > 60.0, Lactic Acid Level 1.2, Calcium Level 8.5L, Total Bilirubin 0.4, Aspartate Amino Transf (AST/SGOT) 18, Alanine Aminotransferase (ALT/SGPT) 30, Alkaline Phosphatase 83, Total Protein 6.5, Albumin 2.8L, Albumin/Globulin Ratio 0.8 CBC/BMP Laboratory Tests 04/23/21 22:27 04/24/21 05:34 Microbiology Microbiology 04/23/21 Blood Culture, Received Pending 04/23/21 Urine Culture, Received Pending Geronimo Ferrari MD Apr 24, 2021 17:10
[2021-04-24] MEDS: HumaLOG INSULIN (NovoLOG) PER UNIT SC SCH ×2 (17:30→20:06)
[2021-04-24] MEDS ORDERED: DEXTROSE 50% 50 ML SYRINGE IV PRN (17:35)
[2021-04-24] MEDS ORDERED: GLUCAGON INJ 1MG VIAL SC PRN (17:35)
[2021-04-24] MEDS ORDERED: GLUCOSE 4GM CHEW TABLET PO PRN (17:35)
[2021-04-24] MEDS: NYSTATIN 100,000 UNITS/GM TOPICAL PWD 15 GM TOP SCH (18:16)
[2021-04-24] MEDS: bisoproloL fumarate 10 MG TAB PO SCH (18:16)
[2021-04-24] MEDS: levETIRAcetam 250MG TABLET (KEPPRA) PO SCH ×2 (18:16→18:20)
[2021-04-24] MEDS: CETIRIZINE (ZyrTEC) 10 MG TAB PO SCH (18:17)
[2021-04-24] MEDS: FOLIC ACID 1 MG TAB PO SCH (18:17)
[2021-04-24] MEDS: PANTOPRAZOLE 40MG TAB (PROTONIX) PO SCH (18:17)
[2021-04-24] MEDS: predniSONE 20 MG TAB PO SCH (18:17)
[2021-04-24] MEDS: POTASSIUM CHLORIDE 10 MEQ SR TABLET PO SCH (18:20)
[2021-04-24] MEDS: risperiDONE 1 MG TAB PO SCH (18:20)
[2021-04-24] MEDS: ALPRAZolam 0.25 MG TAB PO SCH (18:22)
[2021-04-24] MEDS: RAMELTEON 8 MG TAB (ROZEREM) PO SCH (20:06)
[2021-04-24 22:00] VITALS: BP 138/64
[2021-04-24 22:43] LABS: CALCIUM LEVEL 8.6 MG/DL (8.8-10.2); CREATININE FOR GFR 1.34 MG/DL (0.70-1.30); GLOMERULAR FILTRATION RATE 54.5 (>35); POTASSIUM SERUM 3.3 MEQ/L (3.5-5.1)
[2021-04-25] VITALS (15 sets, daily range): BP systolic 124–158; BP diastolic 57–72
[2021-04-25] MEDS ORDERED: POTASSIUM CHLORIDE 10 MEQ SR TABLET PO ONE (01:00)
[2021-04-25] MEDS ORDERED: KCL 10MEQ/100ML SWI (KRUN) 10 MEQ in IV 1 EA IV ONE ×2 (03:00→07:00)
[2021-04-25 05:38] LABS: HEMATOCRIT 31.8 % (42.0-52.0); HEMOGLOBIN 9.9 g/dl (13.5-17.5); LYMPH # 0.5 10^3/uL (1.5-5.0); LYMPH % 7.4 % (24.0-44.0); MEAN CORPUSCULAR HEMOGLOBIN 28.3 pg (27.0-33.0); MEAN CORPUSCULAR HGB CONC 31.1 g/dl (32.0-36.5); MEAN CORPUSCULAR VOLUME 90.9 fl (80.0-96.0); MONO # 0.2 10^3/uL (0.0-0.8); MONO % 2.3 % (2.0-8.0); NEUTROPHILS # 5.9 10^3/uL (1.5-8.5); NEUTROPHILS % 89.5 % (36.0-66.0); WHITE BLOOD COUNT 6.6 10^3/uL (4.0-10.0)
[2021-04-25 05:40] LABS: PLATELET COUNT, AUTOMATED 26 10^3/uL (150-450)
[2021-04-25 06:18] LABS: ALBUMIN 2.9 GM/DL (3.2-5.2); ALT/SGPT 28 U/L (12-78); BILIRUBIN,TOTAL 0.3 MG/DL (0.2-1.0); BLOOD UREA NITROGEN 25 MG/DL (7-18); CALCIUM LEVEL 8.3 MG/DL (8.8-10.2); CARBON DIOXIDE LEVEL 27 MEQ/L (21-32); CHLORIDE LEVEL 107 MEQ/L (98-107); CREATININE FOR GFR 1.13 MG/DL (0.70-1.30); GLOMERULAR FILTRATION RATE > 60.0 (>35); GLUCOSE, FASTING 232 MG/DL (70-100); MAGNESIUM LEVEL 2.1 MG/DL (1.8-2.4); POTASSIUM SERUM 4.4 MEQ/L (3.5-5.1); SODIUM LEVEL 139 MEQ/L (136-145); TOTAL PROTEIN 6.5 GM/DL (6.4-8.2)
[2021-04-25] MEDS: HumaLOG INSULIN (NovoLOG) PER UNIT SC SCH ×4 (07:30→20:19)
[2021-04-25] MEDS: ALPRAZolam 0.25 MG TAB PO SCH ×2 (09:00→20:19)
[2021-04-25] MEDS: DOCUSATE SODIUM 100MG CAPSULE PO SCH ×2 (09:57→20:20)
[2021-04-25] MEDS: NITROFURANTOIN (MACROBID) 100 MG CAP PO SCH ×2 (09:57→20:19)
[2021-04-25] MEDS: PANTOPRAZOLE 40MG TAB (PROTONIX) PO SCH (09:57)
[2021-04-25] MEDS: predniSONE 20 MG TAB PO SCH (09:57)
[2021-04-25] MEDS: CETIRIZINE (ZyrTEC) 10 MG TAB PO SCH (09:58)
[2021-04-25] MEDS: bisoproloL fumarate 10 MG TAB PO SCH (09:58)
[2021-04-25] MEDS: NYSTATIN 100,000 UNITS/GM TOPICAL PWD 15 GM TOP SCH ×2 (09:58→20:20)
[2021-04-25] MEDS: levETIRAcetam 250MG TABLET (KEPPRA) PO SCH ×2 (09:58→20:19)
[2021-04-25] MEDS: FOLIC ACID 1 MG TAB PO SCH (09:59)
[2021-04-25] MEDS: FUROSEMIDE 40 MG TAB PO SCH (09:59)
--- NOTE | 2021-04-25 13:05 | ECGEPIP ---
[facility] Test Date: 2021-04-24 Pat Name: OMID JACKSON Department: Room: [place] [address] Gender: Male [employer]: juani : 1940 Requested By: LUIS BARFIELD Order Number: [id number] Reading MD: Suri Castro Measurements Intervals Gleason Rate: 70 P: 29 WI: 162 QRS: -34 QRSD: 90 T: 58 QT: 414 QTc: 447 Interpretive Statements Sinus rhythm with sinus arrhythmia with occasional premature ventricular complexes Left axis deviation Poor R wave progression Incomplete RBBB Minimal voltage criteria for LVH, may be normal variant Similar to 04/23/21, PVC's are new Electronically Signed on 04-25-2021 13:05:23 EDT by Suri Castro
--- NOTE | 2021-04-25 13:32 | IPNPDOC ---
Text Note Date of Service The patient was seen on 04/25/21. NOTE Subjective: Patient lethargic the morning, does not follow commands. Objective: GENERAL APPEARANCE: NAD HEENT: no scleral icterus, no JVD, EOMI CARDIOVASCULAR: S1S2 LUNGS: CTA ABDOMEN: soft & not tender w palpitation MUSCULOSKELETAL: no cyanosis, no swelling INTEGUMENT: no generalized pallor NEUROLOGICAL: cranial nerve function from 2-12 intact intact, follows commands, speech not dysarthric Assessment and plan Patient is 81 years old male with past history of advanced dementia, Primary adenocarcinoma ascending colon and hepatic flexure, severe anemia,, seizure disorder, CAD s/p percutaneous coronary angioplasty, CHF, paroxysmal atrial fibrillation, BPH, s/p aortic valve replacement, MSSA, Right cephalic vein thrombosis, 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 Patient was found to have pyuria. Also there is possibility of dementia progression. Continue to monitor Zyrtec on hold Deconditioning PT/OT UTI UA positive for Escherichia coli sensitive to nitrofurantoin Castro catheter was changed Nitrofurantoin by mouth Electrolytes abnormalities Replaced Thrombocytopenia/ITP Platelet count dropped to 26 Patient has a history of ITP. I talked to Dr Silva , IVIG infusion 1 g per kg recommended Continue prednisone by mouth Dementia Continue home meds BPH Continue chronic Castro catheter Type 2 diabetes Diabetes diet Insulin sliding scale Seizure disorder Continue home regimen. HTN (hypertension) Continue home regimen. Paroxysmal atrial fibrillation Patient not on the oral anticoagulation Heart rate under control VS,Justen, I+O VS, Kuldipe, I+O Laboratory Tests 04/24/21 22:04 04/25/21 05:27 Vital Signs Date Time Temp Pulse Resp B/P (MAP) Pulse Ox O2 Delivery O2 Flow Rate FiO2 04/25/21 09:58 59 136/69 04/25/21 06:00 97.2 17 96 Room Air I&O- Last 24 Hours up to 6 AM 04/25/21 06:00 Intake Total 1865 ml Output Total 3875 ml Balance -2009 ml VICTORINO BERNAL DO Apr 25, 2021 13:32
[2021-04-25] MEDS ORDERED: IMMUNE GLOBULIN 10% 80 GM in IV 1 EA IV ONE (15:00)
[2021-04-25] MEDS: RAMELTEON 8 MG TAB (ROZEREM) PO SCH (20:19)
[2021-04-25] MEDS: risperiDONE 1 MG TAB PO SCH (20:19)
[2021-04-25] MEDS: POTASSIUM CHLORIDE 10 MEQ SR TABLET PO SCH (20:20)
[2021-04-26] VITALS (7 sets, daily range): BP systolic 111–155; BP diastolic 57–93
[2021-04-26 06:12] LABS: HEMATOCRIT 32.3 % (42.0-52.0); HEMOGLOBIN 10.1 g/dl (13.5-17.5); MEAN CORPUSCULAR HEMOGLOBIN 28.6 pg (27.0-33.0); MEAN CORPUSCULAR HGB CONC 31.3 g/dl (32.0-36.5); MEAN CORPUSCULAR VOLUME 91.5 fl (80.0-96.0); RED BLOOD COUNT 3.53 10^6/uL (4.30-6.10); WHITE BLOOD COUNT 6.8 10^3/uL (4.0-10.0)
[2021-04-26 06:13] LABS: PLATELET COUNT, AUTOMATED 23 10^3/uL (150-450)
[2021-04-26 06:49] LABS: ALBUMIN 2.7 GM/DL (3.2-5.2); ALT/SGPT 22 U/L (12-78); BILIRUBIN,TOTAL 0.4 MG/DL (0.2-1.0); BLOOD UREA NITROGEN 33 MG/DL (7-18); CALCIUM LEVEL 8.6 MG/DL (8.8-10.2); CARBON DIOXIDE LEVEL 26 MEQ/L (21-32); CHLORIDE LEVEL 104 MEQ/L (98-107); CREATININE FOR GFR 1.02 MG/DL (0.70-1.30); GLOMERULAR FILTRATION RATE > 60.0 (>35); GLUCOSE, FASTING 126 MG/DL (70-100); POTASSIUM SERUM 3.5 MEQ/L (3.5-5.1); SODIUM LEVEL 137 MEQ/L (136-145); TOTAL PROTEIN 8.4 GM/DL (6.4-8.2)
[2021-04-26] MEDS: FOLIC ACID 1 MG TAB PO SCH (08:59)
[2021-04-26] MEDS: NITROFURANTOIN (MACROBID) 100 MG CAP PO SCH ×2 (08:59→20:57)
[2021-04-26] MEDS: levETIRAcetam 250MG TABLET (KEPPRA) PO SCH ×2 (09:00→20:57)
[2021-04-26] MEDS: DOCUSATE SODIUM 100MG CAPSULE PO SCH ×2 (09:00→20:56)
[2021-04-26] MEDS: FUROSEMIDE 40 MG TAB PO SCH (09:00)
[2021-04-26] MEDS: bisoproloL fumarate 10 MG TAB PO SCH (09:00)
[2021-04-26] MEDS: PANTOPRAZOLE 40MG TAB (PROTONIX) PO SCH (09:00)
[2021-04-26] MEDS: predniSONE 20 MG TAB PO SCH (09:00)
[2021-04-26] MEDS: HumaLOG INSULIN (NovoLOG) PER UNIT SC SCH ×4 (09:04→21:00)
[2021-04-26] MEDS: ALPRAZolam 0.25 MG TAB PO SCH ×2 (09:28→20:57)
[2021-04-26] MEDS: NYSTATIN 100,000 UNITS/GM TOPICAL PWD 15 GM TOP SCH ×2 (09:28→20:58)
[2021-04-26] MEDS: risperiDONE 1 MG TAB PO SCH (20:57)
[2021-04-26] MEDS: POTASSIUM CHLORIDE 10 MEQ SR TABLET PO SCH (20:57)
[2021-04-26] MEDS: RAMELTEON 8 MG TAB (ROZEREM) PO SCH (20:57)
[2021-04-26] MEDS: NORCO, ANEXSIA 5/325MG TABLET (HYDROcodone/ACETAMINOPHEN) PO PRN (20:59)
--- NOTE | 2021-04-26 21:47 | IPNPDOC ---
Date Seen The patient was seen on 04/26/21. Progress Note SUBJECTIVE: This is hospital day 4 for this patient. Patient, nursing staff did not report any overnight events. Patient was admitted for a UTI and altered mental status. However, the patient reports feeling better today. OBJECTIVE PHYSICAL EXAMINATION: VITAL SIGNS: Please see below. GENERAL: The patient is well-appearing, however, continues to stare at one focal point in the room, except if directed to move his gaze. HEENT: Normocephalic, atraumatic, watery eyes, conjunctiva and lids normal. CARDIOVASCULAR: Regular rate and rhythm, systolic ejection murmur appreciated at aortic area. RESPIRATORY: Clear to auscultation bilaterally. ABDOMINAL:, Soft, nontender, nondistended, bowel sounds present EXTREMITIES:. No swelling, no edema NEUROLOGICAL:. Patient able to lift appropriate leg and responds to commands. Patient is alert and oriented to self and place but not to time. PSYCHOLOGICAL: Patient continues to stare blankly at one focal point, but is able to engage in conversation when prompted. Patient does appear to be confused about who is feeding him. For example, when asked about the nurse who was feeding him. He stated that it was actually his , however, his was to c ome to the hospital at 2 PM, later today. LABORATORY DATA, IMAGING STUDIES, MICROBIOLOGY: Please see below. ASSESSMENT AND PLAN: Pt is a 81 YO M with a PMH of ITP with a history of hospitalizations requiring platelet transfusions in the past. He has an extensive medical history including UTI. #AMS, multifactorial, likely metabolic encephalopathy and progression of dementia Patient appears to have improved a little bit. #Indwelling solis catheter-related UTI -pt has chronic solis catheter UA positive for Escherichia coli sensitive to nitrofurantoin. Consider changing patient's antibiotics changing from considering the patient has been on nitrofurantoin in the past. However, patient has a severe allergy to cephalexin, therefore, cannot be changed over to ceftriaxone at this time. Solis catheter was changed earlier in the hospital course. #Deconditioning. PT/OT has already been ordered #Thrombocytopenia/ITP. Platelet count dropped to 23, even though he had IVIG treatment yesterday. Platelet transfusion 1 unit was given today, after consent was obtained. Continue prednisone by mouth #Dementia. Continue home medications: Alprazolam, and risperidone. #BPH Continue chronic Solis catheter. #Type 2 diabetes mellitus. Continue sliding scale insulin. #Seizure disorder. Continue home anti-seizure medication including Keppra 250 mg every day and 500 mg every night. #Paroxysmal atrial fibrillation. Patient is currently not on anticoagulation because he has thrombocytopenia. Continue bisoprolol fumarate 10 mg home dose GI prophylaxis: pantoprazole DVT prophylaxis ordered: TEDS and sequentials DISPOSITION: Consider discharging patient patient has met his new baseline status. VS, I&O, 24H, Fishbone Vital Signs/I&O Vital Signs Date Time Temp Pulse Resp B/P (MAP) Pulse Ox O2 Delivery O2 Flow Rate FiO2 04/26/21 20:59 20 Room Air 04/26/21 18:36 97.5 72 129/66 98 I&O- Last 24 Hours up to 6 AM 04/26/21 06:00 Intake Total 1000 ml Output Total 2400 ml Balance -1400 ml Laboratory Data 24H LABS Laboratory Tests 2 04/26/21 05:45: Nucleated Red Blood Cells % (auto) 0.0, Immature Platelet Fraction 16.5H, Anion Gap 7L, Glomerular Filtration Rate > 60.0, Calcium Level 8.6L, Total Bilirubin 0.4, Aspartate Amino Transf (AST/SGOT) 14, Alanine Aminotransferase (ALT/SGPT) 22, Alkaline Phosphatase 78, Total Protein 8.4#H, Albumin 2.7L, Albumin/Globulin Ratio 0.5 04/26/21 16:54: Bedside Glucose (Misc Panel) 460H CBC/BMP Laboratory Tests 04/26/21 05:45 Microbiology Microbiology 04/23/21 Blood Culture - Preliminary, Resulted No Growth after 48 hours. All Specime... 04/23/21 Urine Culture - Final, Complete Escherichia Coli GME ATTESTATION GME ATTESTATION My faculty preceptor for this patient encounter was physically present during the encounter and was fully available. All aspects of the patient interview, examination, medical decision making process, and medical care plan development were reviewed and approved by the faculty preceptor. The faculty preceptor is aware and concurs with the plan as stated in the body of this note and will attest to such by his/her cosignature. ATTENDING NOTE Attending Attestation: Patient independently seen and examined. I have discussed in detail with the resident the findings and plan of treatment as documented by the resident. I agree with their findings and treatment plan. I will continue to follow the patient during this hospital stay. Grayson Mandel DO Apr 26, 2021 21:47 DEJAH CR MD Apr 27, 2021 06:51
[2021-04-27 06:00] VITALS: BP 140/63
[2021-04-27 06:08] LABS: HEMATOCRIT 29.2 % (42.0-52.0); HEMOGLOBIN 9.3 g/dl (13.5-17.5); MEAN CORPUSCULAR HEMOGLOBIN 29.2 pg (27.0-33.0); MEAN CORPUSCULAR HGB CONC 31.8 g/dl (32.0-36.5); MEAN CORPUSCULAR VOLUME 91.8 fl (80.0-96.0); RED BLOOD COUNT 3.18 10^6/uL (4.30-6.10)
[2021-04-27 06:16] LABS: PLATELET COUNT, AUTOMATED 55 10^3/uL (150-450)
[2021-04-27 06:33] LABS: BLOOD UREA NITROGEN 38 MG/DL (7-18); CALCIUM LEVEL 8.8 MG/DL (8.8-10.2); CARBON DIOXIDE LEVEL 30 MEQ/L (21-32); CHLORIDE LEVEL 104 MEQ/L (98-107); CREATININE FOR GFR 0.91 MG/DL (0.70-1.30); GLOMERULAR FILTRATION RATE > 60.0 (>35); GLUCOSE, FASTING 151 MG/DL (70-100); POTASSIUM SERUM 3.5 MEQ/L (3.5-5.1); SODIUM LEVEL 139 MEQ/L (136-145)
[2021-04-27] MEDS: HumaLOG INSULIN (NovoLOG) PER UNIT SC SCH ×4 (09:48→23:44)
[2021-04-27] MEDS ORDERED: NITR100C2 PO (11:54)
[2021-04-27] MEDS: predniSONE 20 MG TAB PO SCH (12:53)
[2021-04-27] MEDS: NITROFURANTOIN (MACROBID) 100 MG CAP PO SCH (12:53)
[2021-04-27] MEDS: bisoproloL fumarate 10 MG TAB PO SCH (12:53)
[2021-04-27] MEDS: FOLIC ACID 1 MG TAB PO SCH (12:53)
[2021-04-27] MEDS: PANTOPRAZOLE 40MG TAB (PROTONIX) PO SCH (12:53)
[2021-04-27] MEDS: DOCUSATE SODIUM 100MG CAPSULE PO SCH ×2 (12:54→23:45)
[2021-04-27] MEDS: levETIRAcetam 250MG TABLET (KEPPRA) PO SCH ×2 (12:54→23:45)
[2021-04-27] MEDS: FUROSEMIDE 40 MG TAB PO SCH (12:54)
[2021-04-27] MEDS: NYSTATIN 100,000 UNITS/GM TOPICAL PWD 15 GM TOP SCH ×2 (12:54→23:46)
[2021-04-27] MEDS: ALPRAZolam 0.25 MG TAB PO SCH (12:57)
[2021-04-27 14:00] VITALS: BP 130/58
--- NOTE | 2021-04-27 20:29 | IPNPDOC ---
Date Seen The patient was seen on 04/27/21. Progress Note SUBJECTIVE: This is hospital day 5 for this patient. Patient, nursing staff did not report any overnight events. Patient was admitted for a UTI and altered mental status. However, the patient appears to be back to his baseline. PT will be assessing the patient today. OBJECTIVE PHYSICAL EXAMINATION: VITAL SIGNS: Please see below. GENERAL: The patient is asleep. Today on examination.. HEENT: Normocephalic, atraumatic, lids normal. CARDIOVASCULAR: Regular rate and rhythm, systolic ejection murmur appreciated at aortic area. RESPIRATORY: Clear to auscultation bilaterally. ABDOMINAL:, Soft, nontender, nondistended, bowel sounds present EXTREMITIES:. No swelling, no edema LABORATORY DATA, IMAGING STUDIES, MICROBIOLOGY: Please see below. ASSESSMENT AND PLAN: Pt is a 81 YO M with a PMH of ITP with a history of hospitalizations requiring platelet transfusions in the past. He has an extensi ve medical history including UTI with indwelling Solis catheter. #AMS, multifactorial, likely metabolic encephalopathy and progression of dementia Patient appears to have improved a little bit. #Indwelling solis catheter-related UTI -pt has chronic solis catheter UA positive for Escherichia coli sensitive to nitrofurantoin for 10 more days. Consider changing Solis catheter from 20-16 [place], after speaking with urology. #Deconditioning. PT/OT has already been ordered #Thrombocytopenia/ITP. Platelet count increased to 55 after receiving 1 unit of platelet transfusions yesterday. Continue prednisone by mouth #Dementia. Continue home medications: Alprazolam, and risperidone. #BPH Continue chronic Solis catheter. #Type 2 diabetes mellitus. Continue sliding scale insulin. #Seizure disorder. Continue home anti-seizure medication including Keppra 250 mg every day and 500 mg every night. #Paroxysmal atrial fibrillation. Patient is currently not on anticoagulation because he has thrombocytopenia. Continue bisoprolol fumarate 10 mg home dose GI prophylaxis: pantoprazole DVT prophylaxis ordered: TEDS and sequentials DISPOSITION: Consider discharging patient patient as he has met his new baseline status after physical therapy assessment has been complete. VS, I&O, 24H, Fishbone Vital Signs/I&O Vital Signs Date Time Temp Pulse Resp B/P (MAP) Pulse Ox O2 Delivery O2 Flow Rate FiO2 04/27/21 14:00 97.8 67 17 130/58 (82) 96 Room Air I&O- Last 24 Hours up to 6 AM 04/27/21 06:00 Intake Total 1588 ml Output Total 1025 ml Balance 563 ml Laboratory Data 24H LABS Laboratory Tests 2 04/26/21 21:59: Bedside Glucose (Misc Panel) 153H 04/27/21 05:34: Nucleated Red Blood Cells % (auto) 0.3H, Anion Gap 5L, Glomerular Filtration Rate > 60.0, Calcium Level 8.8 04/27/21 12:38: Bedside Glucose (Misc Panel) 130H 04/27/21 16:44: Bedside Glucose (Misc Panel) 359H CBC/BMP Laboratory Tests 04/27/21 05:34 Microbiology Microbiology 04/23/21 Blood Culture - Preliminary, Resulted No Growth after 72 hours. All specime... 04/23/21 Urine Culture - Final, Complete Escherichia Coli GME ATTESTATION GME ATTESTATION My faculty preceptor for this patient encounter was physically present during the encounter and was fully available. All aspects of the patient interview, examination, medical decision making process, and medical care plan development were reviewed and approved by the faculty preceptor. The faculty preceptor is aware and concurs with the plan as stated in the body of this note and will attest to such by his/her cosignature. ATTENDING NOTE Attending Attestation: Patient independently seen and examined. I have discussed in detail with the resident the findings and plan of treatment as documented by the resident. I agree with their findings and treatment plan. I will continue to follow the patient during this hospital stay. Grayson Mandel DO Apr 27, 2021 20:29 DEJAH CR MD Apr 28, 2021 06:39
[2021-04-27 22:00] VITALS: BP 130/62
[2021-04-27] MEDS: RAMELTEON 8 MG TAB (ROZEREM) PO SCH (23:45)
[2021-04-27] MEDS: POTASSIUM CHLORIDE 10 MEQ SR TABLET PO SCH (23:45)
[2021-04-27] MEDS: risperiDONE 1 MG TAB PO SCH (23:45)
[2021-04-28] MEDS: ALPRAZolam 0.25 MG TAB PO SCH ×3 (00:02→21:20)
[2021-04-28] MEDS: NITROFURANTOIN (MACROBID) 100 MG CAP PO SCH ×3 (01:31→21:20)
[2021-04-28 06:00] VITALS: BP 146/64
[2021-04-28 06:40] LABS: HEMATOCRIT 31.3 % (42.0-52.0); HEMOGLOBIN 9.9 g/dl (13.5-17.5); MEAN CORPUSCULAR HEMOGLOBIN 28.8 pg (27.0-33.0); MEAN CORPUSCULAR HGB CONC 31.6 g/dl (32.0-36.5); RED BLOOD COUNT 3.44 10^6/uL (4.30-6.10); WHITE BLOOD COUNT 8.6 10^3/uL (4.0-10.0)
[2021-04-28 07:07] LABS: BLOOD UREA NITROGEN 34 MG/DL (7-18); CALCIUM LEVEL 8.9 MG/DL (8.8-10.2); CARBON DIOXIDE LEVEL 30 MEQ/L (21-32); CHLORIDE LEVEL 105 MEQ/L (98-107); CREATININE FOR GFR 0.86 MG/DL (0.70-1.30); GLOMERULAR FILTRATION RATE > 60.0 (>35); GLUCOSE, FASTING 109 MG/DL (70-100); POTASSIUM SERUM 3.5 MEQ/L (3.5-5.1); SODIUM LEVEL 141 MEQ/L (136-145)
[2021-04-28 07:09] LABS: PLATELET COUNT, AUTOMATED 41 10^3/uL (150-450)
[2021-04-28] MEDS: HumaLOG INSULIN (NovoLOG) PER UNIT SC SCH ×4 (07:30→21:28)
[2021-04-28] MEDS: predniSONE 20 MG TAB PO SCH (10:32)
[2021-04-28] MEDS: levETIRAcetam 250MG TABLET (KEPPRA) PO SCH ×2 (10:32→21:19)
[2021-04-28] MEDS: PANTOPRAZOLE 40MG TAB (PROTONIX) PO SCH (10:33)
[2021-04-28] MEDS: FUROSEMIDE 40 MG TAB PO SCH (10:33)
[2021-04-28] MEDS: FOLIC ACID 1 MG TAB PO SCH (10:33)
[2021-04-28] MEDS: DOCUSATE SODIUM 100MG CAPSULE PO SCH ×2 (10:33→21:20)
[2021-04-28] MEDS: bisoproloL fumarate 10 MG TAB PO SCH (10:34)
[2021-04-28] MEDS: NYSTATIN 100,000 UNITS/GM TOPICAL PWD 15 GM TOP SCH ×2 (10:36→21:20)
[2021-04-28 14:00] VITALS: BP 112/57
--- NOTE | 2021-04-28 18:02 | IPNPDOC ---
Date Seen The patient was seen on 04/28/21. Progress Note SUBJECTIVE: This is hospital day 6 for this patient. Patient, nursing staff did not report any overnight events. Patient was admitted for a UTI and altered mental status. However, the patient appears to be back at his baseline. PT has stated that the patient will do well either home with home health services or in subacute rehabilitation. Patient's believes that patient needs to be taken to subacute rehabilitation. OBJECTIVE PHYSICAL EXAMINATION: VITAL SIGNS: Please see below. GENERAL: The patient is asleep. Today on examination.. HEENT: Normocephalic, atraumatic, lids normal. CARDIOVASCULAR: Regular rate and rhythm, systolic ejection murmur appreciated at aortic area. RESPIRATORY: Clear to auscultation bilaterally. ABDOMINAL:, Soft, nontender, nondistended, bowel sounds present EXTREMITIES:. No swelling, no edema LABORATORY DATA, IMAGING STUDIES, MICROBIOLOGY: Please see below. ASSESSMENT AND PLAN: Pt is a 81 YO M with a PMH of ITP with a history of hospitalizations requiring platelet transfusions in the past. He has an extensive medical history including UTI with indwelling Solis catheter. #AMS, multifactorial, likely metabolic encephalopathy and progression of demen tia Patient appears to have improved, likely baseline. #Indwelling solis catheter-related UTI -pt has chronic solis catheter UA positive for Escherichia coli sensitive to nitrofurantoin for 9 more days, last administration day of 05/07/2021. Consider changing Solis catheter from 20-16 Greek, after speaking with urology. #Deconditioning. PT/OT has already been ordered #Thrombocytopenia/ITP. Platelet count decreased to 41,000 after receiving 1 unit of platelet transfusions on 04/26/2021. Continue prednisone by mouth #Dementia. Continue home medications: Alprazolam, and risperidone. #BPH Continue chronic Solis catheter. #Type 2 diabetes mellitus. Continue sliding scale insulin. #Seizure disorder. Continue home anti-seizure medication including Keppra 250 mg every day and 500 mg every night. #Paroxysmal atrial fibrillation. Patient is currently not on anticoagulation because he has thrombocytopenia. Continue bisoprolol fumarate 10 mg home dose GI prophylaxis: pantoprazole DVT prophylaxis ordered: TEDS and sequentials DISPOSITION: Discharge pending due to placement. VS, I&O, 24H, Fishbone Vital Signs/I&O Vital Signs Date Time Temp Pulse Resp B/P (MAP) Pulse Ox O2 Delivery O2 Flow Rate FiO2 04/28/21 14:00 97.7 73 14 112/57 (75) 100 Room Air I&O- Last 24 Hours up to 6 AM 04/28/21 06:00 Intake Total 160 ml Output Total 1475 ml Balance -1315 ml Laboratory Data 24H LABS Laboratory Tests 2 04/27/21 21:20: Bedside Glucose (Misc Panel) 294H 04/28/21 05:36: Nucleated Red Blood Cells % (auto) 0.0, Immature Platelet Fraction 11.6H, Anion Gap 6L, Glomerular Filtration Rate > 60.0, Calcium Level 8.9 04/28/21 11:41: Bedside Glucose (Misc Panel) 147H 04/28/21 17:04: Bedside Glucose (Misc Panel) 467H CBC/BMP Laboratory Tests 04/28/21 05:36 Microbiology Microbiology 04/23/21 Blood Culture - Preliminary, Resulted No Growth after 72 hours. All specime... 04/23/21 Urine Culture - Final, Complete Escherichia Coli GME ATTESTATION GME ATTESTATION My faculty preceptor for this patient encounter was physically present during the encounter and was fully available. All aspects of the patient interview, examination, medical decision making process, and medical care plan development were reviewed and approved by the faculty preceptor. The faculty preceptor is a mooney and concurs with the plan as stated in the body of this note and will attest to such by his/her cosignature. ATTENDING NOTE Attending Attestation: Patient independently seen and examined. I have discussed in detail with the resident the findings and plan of treatment as documented by the resident. I agree with their findings and treatment plan. I will continue to follow the patient during this hospital stay. Grayson Mandel DO Apr 28, 2021 18:02 DEJAH CR MD Apr 29, 2021 09:53
[2021-04-28] MEDS: POTASSIUM CHLORIDE 10 MEQ SR TABLET PO SCH (21:20)
[2021-04-28] MEDS: RAMELTEON 8 MG TAB (ROZEREM) PO SCH (21:20)
[2021-04-28] MEDS: risperiDONE 1 MG TAB PO SCH (21:20)
[2021-04-28 22:00] VITALS: BP 135/65
[2021-04-29 06:00] VITALS: BP 142/68
[2021-04-29] MEDS: HumaLOG INSULIN (NovoLOG) PER UNIT SC SCH ×4 (07:30→20:19)
[2021-04-29] MEDS: ALPRAZolam 0.25 MG TAB PO SCH ×2 (09:48→21:00)
[2021-04-29] MEDS: bisoproloL fumarate 10 MG TAB PO SCH (09:50)
[2021-04-29] MEDS: levETIRAcetam 250MG TABLET (KEPPRA) PO SCH ×2 (09:50→20:18)
[2021-04-29] MEDS: NORCO, ANEXSIA 5/325MG TABLET (HYDROcodone/ACETAMINOPHEN) PO PRN (09:50)
[2021-04-29] MEDS: NITROFURANTOIN (MACROBID) 100 MG CAP PO SCH ×2 (09:50→20:17)
[2021-04-29] MEDS: predniSONE 20 MG TAB PO SCH (09:50)
[2021-04-29] MEDS: PANTOPRAZOLE 40MG TAB (PROTONIX) PO SCH (09:51)
[2021-04-29] MEDS: FUROSEMIDE 40 MG TAB PO SCH (09:51)
[2021-04-29] MEDS: NYSTATIN 100,000 UNITS/GM TOPICAL PWD 15 GM TOP SCH ×2 (09:51→21:01)
[2021-04-29] MEDS: DOCUSATE SODIUM 100MG CAPSULE PO SCH ×2 (09:51→20:18)
[2021-04-29] MEDS: FOLIC ACID 1 MG TAB PO SCH (09:51)
[2021-04-29 14:00] VITALS: BP 142/71
[2021-04-29 15:46] LABS: BASO % 0.1 % (0.0-1.0); HEMATOCRIT 37.5 % (42.0-52.0); HEMOGLOBIN 11.6 g/dl (13.5-17.5); LYMPH # 0.3 10^3/uL (1.5-5.0); LYMPH % 3.3 % (24.0-44.0); MEAN CORPUSCULAR HEMOGLOBIN 28.4 pg (27.0-33.0); MEAN CORPUSCULAR HGB CONC 30.9 g/dl (32.0-36.5); MEAN CORPUSCULAR VOLUME 91.7 fl (80.0-96.0); MONO # 0.2 10^3/uL (0.0-0.8); MONO % 1.9 % (2.0-8.0); NEUTROPHILS # 9.8 10^3/uL (1.5-8.5); NEUTROPHILS % 93.9 % (36.0-66.0); RED BLOOD COUNT 4.09 10^6/uL (4.30-6.10); WHITE BLOOD COUNT 10.4 10^3/uL (4.0-10.0)
[2021-04-29 15:47] LABS: PLATELET COUNT, AUTOMATED 68 10^3/uL (150-450)
--- NOTE | 2021-04-29 16:29 | IPNPDOC ---
Date Seen The patient was seen on 04/29/21. Progress Note SUBJECTIVE: This is hospital day 7 for this patient. Patient, nursing staff did not report any overnight events. Patient was admitted for a UTI and altered mental status. However, the patient appears to be back at his baseline. PT has stated that the patient will need subacute rehabilitation services, with which patient's agrees as she states that she will not be able to care for him at home. The patient is due to receive Nplate injection tomorrow. The patient's presented during visiting hours and requested CBC to be drawn. Dr. Quiroz was called and the patient's was informed about platelet threshold needing to be less than 20,000, before transfusion of platelets can be done, Dr. Quiroz agreed with this. The patient's insisted that the CBC was more for her own satisfaction. OBJECTIVE PHYSICAL EXAMINATION: VITAL SIGNS: Please see below. GENERAL: The patient was sitting up in the bedside chair in no acute distress. HEENT: Normocephalic, atraumatic, lids normal. CARDIOVASCULAR: Regular rate and rhythm, systolic ejection murmur appreciated at aortic area. RESPIRATORY: Clear to auscultation bilaterally. ABDOMINAL:, Soft, nontender, nondistended, bowel sounds present EXTREMITIES: No swelling, no edema LABORATORY DATA, IMAGING STUDIES, MICROBIOLOGY: Please see below. ASSESSMENT AND PLAN: Pt is an 81 YO M with a PMH of ITP with a history of hospitalizations requiring platelet transfusions in the past. He has an extensive medical history including UTI with indwelling Solis catheter. #AMS, multifactorial, likely metabolic encephalopathy and progression of dementia Patient appears to have improved, likely baseline. #Indwelling solis catheter-related UTI -pt has chronic solis catheter UA positive for Escherichia coli sensitive to nitrofurantoin for 9 more days, last administration day of 05/07/2021. Consider changing Solis catheter from 20-16 [place], after speaking with urology. #Deconditioning. PT/OT has already been ordered #Thrombocytopenia/ITP. Platelet count decreased to 41,000 after receiving 1 unit of platelet transfusions on 04/26/2021. Continue prednisone by mouth Patient's requested CBC count to be done again today. Dr. Quiroz, patient's top collar maker, was contacted to understand appropriate platelet transfusions for this patient. Dr. Quiroz informed us that her platelet transfusion would be platelets of less than 20,000 and/or an active bleed. Since both of these are not present. The patient does not qualify for platelet transfusion at this time. Dr. Quiroz also stated that the patient has an Nplate administration that is due tomorrow. Since the patient is still in the hospital and will be tomorrow due to not being able to find placement, the patient will receive this administration within the hospital, this was coordinated with the pharmacist at the [facility] and the hospital pharmacist. Dr. Quiroz also informed us that evening endplate administration from a rehabilitation center would be difficult. The patient may receive endplate administration more easily if he is discharged home. Dr. Quiroz has been consulted on this case, for administration of Nplate tomorrow. Will update her on the details of patients morning labs for appropriate Nplate administration. We'll consider speaking with PT tomorrow to discuss what services would need to be at home for the patient to be discharged home. Patient's will also need to be consulted to understand whether she is agreeable to plan of discharging patient home with health services. #Dementia. Continue home medications: Alprazolam, and risperidone. #BPH Continue chronic Solis catheter. #Type 2 diabetes mellitus. Continue sliding scale insulin. #Seizure disorder. Continue home anti-seizure medication including Keppra 250 mg every day and 500 mg every night. #Paroxysmal atrial fibrillation. Patient is currently not on anticoagulation because he has thrombocytopenia. Continue bisoprolol fumarate 10 mg home dose GI prophylaxis: pantoprazole DVT prophylaxis ordered: TEDS and sequentials DISPOSITION: Discharge pending due to placement. VS, I&O, 24H, [place] Vital Signs/I&O Vital Signs Date Time Temp Pulse Resp B/P (MAP) Pulse Ox O2 Delivery O2 Flow Rate FiO2 04/29/21 14:00 97.0 75 16 142/71 (94) 97 Room Air I&O- Last 24 Hours up to 6 AM 04/29/21 05:59 Intake Total 980 ml Output Total 1875 ml Balance -895 ml Laboratory Data 24H LABS Laboratory Tests 2 04/28/21 17:04: Bedside Glucose (Misc Panel) 467H 04/28/21 21:24: Bedside Glucose (Misc Panel) 346H 04/29/21 07:28: Bedside Glucose (Misc Panel) 125H 04/29/21 11:28: Bedside Glucose (Misc Panel) 186H 04/29/21 15:26: Immature Granulocyte % (Auto) 0.8, Neutrophils (%) (Auto) 93.9H, Lymphocytes (%) (Auto) 3.3L, Monocytes (%) (Auto) 1.9L, Eosinophils (%) (Auto) 0.0, Basophils (%) (Auto) 0.1, Neutrophils # (Auto) 9.8H, Lymphocytes # (Auto) 0.3L, Monocytes # (Auto) 0.2, Eosinophils # (Auto) 0.0, Basophils # (Auto) 0.0, Nucleated Red Blood Cells % (auto) 0.0, Immature Platelet Fraction 13.2H CBC/BMP Laboratory Tests 04/29/21 15:26 Microbiology Microbiology 04/23/21 Blood Culture - Final, Complete NO GROWTH AFTER 5 DAYS 04/23/21 Urine Culture - Final, Complete Escherichia Coli GME ATTESTATION GME ATTESTATION My faculty preceptor for this patient encounter was physically present during the encounter and was fully available. All aspects of the patient interview, examination, medical decision making process, and medical care plan development were reviewed and approved by the faculty preceptor. The faculty preceptor is aware and concurs with the plan as stated in the body of this note and will attest to such by his/her cosignature. Grayson Mandel DO Apr 29, 2021 16:29
[2021-04-29] MEDS: risperiDONE 1 MG TAB PO SCH (20:17)
[2021-04-29] MEDS: POTASSIUM CHLORIDE 10 MEQ SR TABLET PO SCH (20:18)
[2021-04-29] MEDS: RAMELTEON 8 MG TAB (ROZEREM) PO SCH (21:00)
[2021-04-29 22:00] VITALS: BP 140/76
[2021-04-30 05:18] LABS: BASO % 0.1 % (0.0-1.0); EOS % 0.1 % (0.0-3.0); HEMATOCRIT 32.7 % (42.0-52.0); HEMOGLOBIN 10.2 g/dl (13.5-17.5); LYMPH # 1.4 10^3/uL (1.5-5.0); MEAN CORPUSCULAR HEMOGLOBIN 28.2 pg (27.0-33.0); MEAN CORPUSCULAR HGB CONC 31.2 g/dl (32.0-36.5); MEAN CORPUSCULAR VOLUME 90.3 fl (80.0-96.0); MONO # 0.6 10^3/uL (0.0-0.8); MONO % 7.3 % (2.0-8.0); NEUTROPHILS # 6.5 10^3/uL (1.5-8.5); NEUTROPHILS % 75.5 % (36.0-66.0); RED BLOOD COUNT 3.62 10^6/uL (4.30-6.10); WHITE BLOOD COUNT 8.6 10^3/uL (4.0-10.0)
[2021-04-30 05:20] LABS: PLATELET COUNT, AUTOMATED 62 10^3/uL (150-450)
[2021-04-30 06:00] VITALS: BP 145/71
[2021-04-30] MEDS: HumaLOG INSULIN (NovoLOG) PER UNIT SC SCH ×4 (10:15→22:23)
[2021-04-30] MEDS: ALPRAZolam 0.25 MG TAB PO SCH ×2 (10:16→22:29)
[2021-04-30] MEDS: FUROSEMIDE 40 MG TAB PO SCH (10:16)
[2021-04-30] MEDS: DOCUSATE SODIUM 100MG CAPSULE PO SCH ×2 (10:16→22:28)
[2021-04-30] MEDS: bisoproloL fumarate 10 MG TAB PO SCH (10:16)
[2021-04-30] MEDS: NITROFURANTOIN (MACROBID) 100 MG CAP PO SCH ×2 (10:16→22:29)
[2021-04-30] MEDS: PANTOPRAZOLE 40MG TAB (PROTONIX) PO SCH (10:17)
[2021-04-30] MEDS: levETIRAcetam 250MG TABLET (KEPPRA) PO SCH ×2 (10:17→22:28)
[2021-04-30] MEDS: predniSONE 20 MG TAB PO SCH (10:17)
[2021-04-30] MEDS: FOLIC ACID 1 MG TAB PO SCH (10:17)
[2021-04-30] MEDS: NYSTATIN 100,000 UNITS/GM TOPICAL PWD 15 GM TOP SCH ×2 (10:20→22:29)
--- NOTE | 2021-04-30 13:52 | IPNPDOC ---
Date Seen The patient was seen on 04/30/21. Progress Note SUBJECTIVE: This is hospital day 8 for this patient. Patient, nursing staff did not report any overnight events. Patient was admitted for a UTI and altered mental status. However, the patient appears to be back at his baseline. PT has stated that the patient will need ongoing therapy in the hospital. The patient is due to receive Nplate injection today, which Dr. Quiroz, the patient's motorized squad sergeant has ordered. OBJECTIVE PHYSICAL EXAMINATION: VITAL SIGNS: Please see below. GENERAL: The patient was lying back in his bed this AM. HEENT: Normocephalic, atraumatic, lids normal. CARDIOVASCULAR: Regular rate and rhythm, systolic ejection murmur appreciated at aortic area. RESPIRATORY: Clear to auscultation bilaterally. ABDOMINAL:, Soft, nontender, nondistended, bowel sounds present EXTREMITIES: No swelling, no edema LABORATORY DATA, IMAGING STUDIES, MICROBIOLOGY: Please see below. ASSESSMENT AND PLAN: Pt is an 81 YO M with a PMH of ITP with a history of hospitalizations requiring platelet transfusions in the past. He has an extensive medical history including UTI with indwelling Solis catheter. #AMS, multifactorial, likely metabolic encephalopathy and progression of dementia Patient appears to have improved, likely baseline. #Indwelling solis catheter-related UTI -pt has chronic solis catheter UA positive for Escherichia coli sensitive to nitrofurantoin for 9 more days, last administration day of 05/07/2021. Consider changing Solis catheter from 20-16 [place], by outpatient urology. #Deconditioning. PT/OT has already been ordered #Thrombocytopenia/ITP. Platelet count decreased to 41,000 after receiving 1 unit of platelet transfusions on 04/26/2021. Continue prednisone by mouth Patient's requested CBC count to be done again today. Dr. Quiroz, patient's motorized squad sergeant, has ordered Nplate for today and has been consulted on the case. #Dementia. Continue home medications: Alprazolam, and risperidone. #BPH Continue chronic Solis catheter. #Type 2 diabetes mellitus. Continue sliding scale insulin. #Seizure disorder. Continue home anti-seizure medication including Keppra 250 mg every day and 500 mg every night. #Paroxysmal atrial fibrillation. Patient is currently not on anticoagulation because he has thrombocytopenia. Continue bisoprolol fumarate 10 mg home dose GI prophylaxis: pantoprazole DVT prophylaxis ordered: TEDS and sequentials DISPOSITION: Discharge pending due to placement. Attending Attestation: Patient independently seen and examined. I have discussed in detail with the resident the findings and plan of treatment as documented by the resident. I agree with their findings and treatment plan. I will continue to follow the patient during this hospital stay. VS, I&O, [facility] V[facility]O Vital Signs Date Time Temp Pulse Resp B/P (MAP) Pulse Ox O2 Delivery O2 Flow Rate FiO2 04/30/21 10:16 72 124/52 04/30/21 06:00 97.2 16 98 Room Air I&O- Last 24 Hours up to 6 AM 04/30/21 06:00 Intake Total 740 ml Output Total 1050 ml Balance -310 ml Laboratory Data 24H LABS Laboratory Tests 2 04/29/21 15:26: Immature Granulocyte % (Auto) 0.8, Neutrophils (%) (Auto) 93.9H, Lymphocytes (%) (Auto) 3.3L, Monocytes (%) (Auto) 1.9L, Eosinophils (%) (Auto) 0.0, Basophils (%) (Auto) 0.1, Neutrophils # (Auto) 9.8H, Lymphocytes # (Auto) 0.3L, Monocytes # (Auto) 0.2, Eosinophils # (Auto) 0.0, Basophils # (Auto) 0.0, Nucleated Red Blood Cells % (auto) 0.0, Immature Platelet Fraction 13.2H 04/29/21 16:31: Bedside Glucose (Misc Panel) 372H 04/29/21 21:16: Bedside Glucose (Misc Panel) 267H 04/29/21 23:38: Bedside Glucose (Misc Panel) 169H 04/30/21 03:05: Bedside Glucose (Misc Panel) 130H 04/30/21 04:42: Immature Granulocyte % (Auto) 1.0, Neutrophils (%) (Auto) 75.5H, Lymphocytes (%) (Auto) 16.0L, Monocytes (%) (Auto) 7.3, Eosinophils (%) (Auto) 0.1, Basophils (%) (Auto) 0.1, Neutrophils # (Auto) 6.5, Lymphocytes # (Auto) 1.4L, Monocytes # (Auto) 0.6, Eosinophils # (Auto) 0.0, Basophils # (Auto) 0.0, Nucleated Red Blood Cells % (auto) 0.0 04/30/21 06:02: Bedside Glucose (Misc Panel) 118H 04/30/21 12:06: Bedside Glucose (Misc Panel) 169H CBC/BMP Laboratory Tests 04/29/21 15:26 04/30/21 04:42 Microbiology Microbiology 04/23/21 Blood Culture - Final, Complete NO GROWTH AFTER 5 DAYS 04/23/21 Urine Culture - Final, Complete Escherichia Coli Grayson Mandel DO Apr 30, 2021 13:52 DEJAH CR MD May 01, 2021 06:29
[2021-04-30 14:00] VITALS: BP 141/68
[2021-04-30] MEDS: ROMIPLOSTIM SC SCH (16:04)
[2021-04-30 22:00] VITALS: BP 124/65
[2021-04-30] MEDS: RAMELTEON 8 MG TAB (ROZEREM) PO SCH (22:29)
[2021-04-30] MEDS: risperiDONE 1 MG TAB PO SCH (22:29)
[2021-04-30] MEDS: POTASSIUM CHLORIDE 10 MEQ SR TABLET PO SCH (22:29)
[2021-04-30] MEDS: MIRALAX *UNIT DOSE* 17GM PACKET PO PRN (22:29)
[2021-05-01 06:00] VITALS: BP 138/61
[2021-05-01 06:10] LABS: HEMATOCRIT 33.8 % (42.0-52.0); HEMOGLOBIN 10.7 g/dl (13.5-17.5); MEAN CORPUSCULAR HEMOGLOBIN 28.6 pg (27.0-33.0); MEAN CORPUSCULAR HGB CONC 31.7 g/dl (32.0-36.5); MEAN CORPUSCULAR VOLUME 90.4 fl (80.0-96.0); RED BLOOD COUNT 3.74 10^6/uL (4.30-6.10); WHITE BLOOD COUNT 8.5 10^3/uL (4.0-10.0)
[2021-05-01 06:16] LABS: PLATELET COUNT, AUTOMATED 55 10^3/uL (150-450)
[2021-05-01 06:19] LABS: BLOOD UREA NITROGEN 48 MG/DL (7-18); CALCIUM LEVEL 9.2 MG/DL (8.8-10.2); CARBON DIOXIDE LEVEL 33 MEQ/L (21-32); CHLORIDE LEVEL 103 MEQ/L (98-107); CREATININE FOR GFR 1.13 MG/DL (0.70-1.30); GLOMERULAR FILTRATION RATE > 60.0 (>35); GLUCOSE, FASTING 143 MG/DL (70-100); POTASSIUM SERUM 3.1 MEQ/L (3.5-5.1); SODIUM LEVEL 141 MEQ/L (136-145)
[2021-05-01] MEDS ORDERED: POTASSIUM CHLORIDE 10 MEQ SR TABLET PO ONE (06:45)
[2021-05-01 07:02] LABS: MAGNESIUM LEVEL 1.8 MG/DL (1.8-2.4)
[2021-05-01] MEDS: predniSONE 20 MG TAB PO SCH (10:15)
[2021-05-01] MEDS: HumaLOG INSULIN (NovoLOG) PER UNIT SC SCH ×4 (10:15→20:41)
[2021-05-01] MEDS: DOCUSATE SODIUM 100MG CAPSULE PO SCH ×2 (10:15→20:34)
[2021-05-01] MEDS: levETIRAcetam 250MG TABLET (KEPPRA) PO SCH ×2 (10:16→20:35)
[2021-05-01] MEDS: NITROFURANTOIN (MACROBID) 100 MG CAP PO SCH ×2 (10:16→20:35)
[2021-05-01] MEDS: FUROSEMIDE 40 MG TAB PO SCH (10:16)
[2021-05-01] MEDS: FOLIC ACID 1 MG TAB PO SCH (10:16)
[2021-05-01] MEDS: bisoproloL fumarate 10 MG TAB PO SCH (10:17)
[2021-05-01] MEDS: PANTOPRAZOLE 40MG TAB (PROTONIX) PO SCH (10:17)
[2021-05-01] MEDS: NYSTATIN 100,000 UNITS/GM TOPICAL PWD 15 GM TOP SCH ×2 (10:18→20:35)
[2021-05-01] MEDS: ALPRAZolam 0.25 MG TAB PO SCH ×2 (10:21→20:35)
[2021-05-01] MEDS: MIRALAX *UNIT DOSE* 17GM PACKET PO PRN (10:25)
[2021-05-01] MEDS: POTASSIUM CHLORIDE 10 MEQ SR TABLET PO SCH (20:35)
[2021-05-01] MEDS: risperiDONE 1 MG TAB PO SCH (20:35)
[2021-05-01] MEDS: RAMELTEON 8 MG TAB (ROZEREM) PO SCH (20:35)
[2021-05-01] MEDS: ACETAMINOPHEN TAB 650MG DOSE (2X325MG) PO PRN (20:36)
[2021-05-01 22:00] VITALS: BP 146/62
[2021-05-02 06:00] VITALS: BP 144/76
[2021-05-02 08:44] LABS: HEMATOCRIT 34.3 % (42.0-52.0); HEMOGLOBIN 10.6 g/dl (13.5-17.5); MEAN CORPUSCULAR HEMOGLOBIN 28.1 pg (27.0-33.0); MEAN CORPUSCULAR HGB CONC 30.9 g/dl (32.0-36.5); RED BLOOD COUNT 3.77 10^6/uL (4.30-6.10); WHITE BLOOD COUNT 8.9 10^3/uL (4.0-10.0)
[2021-05-02 08:54] LABS: PLATELET COUNT, AUTOMATED 58 10^3/uL (150-450)
[2021-05-02] MEDS: bisoproloL fumarate 10 MG TAB PO SCH ×2 (09:00→09:38)
[2021-05-02] MEDS: levETIRAcetam 250MG TABLET (KEPPRA) PO SCH ×2 (09:30→22:12)
[2021-05-02] MEDS: HumaLOG INSULIN (NovoLOG) PER UNIT SC SCH ×4 (09:30→22:04)
[2021-05-02] MEDS: FUROSEMIDE 40 MG TAB PO SCH (09:30)
[2021-05-02] MEDS: ALPRAZolam 0.25 MG TAB PO SCH ×2 (09:30→22:13)
[2021-05-02] MEDS: predniSONE 20 MG TAB PO SCH (09:30)
[2021-05-02] MEDS: PANTOPRAZOLE 40MG TAB (PROTONIX) PO SCH (09:30)
[2021-05-02] MEDS: DOCUSATE SODIUM 100MG CAPSULE PO SCH ×2 (09:30→22:12)
[2021-05-02] MEDS: FOLIC ACID 1 MG TAB PO SCH (09:30)
[2021-05-02] MEDS: NYSTATIN 100,000 UNITS/GM TOPICAL PWD 15 GM TOP SCH ×2 (09:33→22:13)
[2021-05-02] MEDS: MIRALAX *UNIT DOSE* 17GM PACKET PO PRN (09:38)
[2021-05-02 14:00] VITALS: BP 153/66
--- NOTE | 2021-05-02 18:12 | IPNPDOC ---
Text Note Date of Service The patient was seen on 05/02/21. NOTE Discussed at length with over telephone. All questions and concerns answ ered. She states in the past his confusion is a result of a UTI or thrombocytopenia. She expresses concerns regarding his WBC increasing from 8.6 yesterday to 8.9 today. Will repeat UA today, after changing his solis catheter. VS,Fishbone, I+O VS, Fishbone, I+O Laboratory Tests 05/02/21 08:15 Vital Signs Date Time Temp Pulse Resp B/P (MAP) Pulse Ox O2 Delivery O2 Flow Rate FiO2 05/02/21 14:00 97.7 67 16 153/66 (95) 99 Room Air I&O- Last 24 Hours up to 6 AM 05/02/21 06:00 Intake Total 1350 ml Output Total 1075 ml Balance 275 ml DEJAH CR MD May 02, 2021 18:12
[2021-05-02 22:00] VITALS: BP 161/77
[2021-05-02] MEDS: POTASSIUM CHLORIDE 10 MEQ SR TABLET PO SCH (22:13)
[2021-05-02] MEDS: risperiDONE 1 MG TAB PO SCH (22:13)
[2021-05-02] MEDS: RAMELTEON 8 MG TAB (ROZEREM) PO SCH (22:13)
[2021-05-02] MEDS: ACETAMINOPHEN TAB 650MG DOSE (2X325MG) PO PRN (22:14)
[2021-05-03 06:00] VITALS: BP 123/63
[2021-05-03] MEDS: PANTOPRAZOLE 40MG TAB (PROTONIX) PO SCH (09:55)
[2021-05-03] MEDS: FOLIC ACID 1 MG TAB PO SCH (09:55)
[2021-05-03] MEDS: ALPRAZolam 0.25 MG TAB PO SCH ×2 (09:55→22:17)
[2021-05-03] MEDS: predniSONE 20 MG TAB PO SCH (09:55)
[2021-05-03] MEDS: DOCUSATE SODIUM 100MG CAPSULE PO SCH ×2 (09:56→22:16)
[2021-05-03] MEDS: bisoproloL fumarate 10 MG TAB PO SCH (09:56)
[2021-05-03] MEDS: FUROSEMIDE 40 MG TAB PO SCH (09:56)
[2021-05-03] MEDS: levETIRAcetam 250MG TABLET (KEPPRA) PO SCH ×2 (09:57→22:16)
[2021-05-03] MEDS: HumaLOG INSULIN (NovoLOG) PER UNIT SC SCH ×4 (09:59→22:17)
[2021-05-03] MEDS: NYSTATIN 100,000 UNITS/GM TOPICAL PWD 15 GM TOP SCH ×2 (09:59→22:17)
[2021-05-03 14:06] LABS: HEMATOCRIT 36.3 % (42.0-52.0); HEMOGLOBIN 11.3 g/dl (13.5-17.5); MEAN CORPUSCULAR HEMOGLOBIN 28.3 pg (27.0-33.0); MEAN CORPUSCULAR HGB CONC 31.1 g/dl (32.0-36.5); MEAN CORPUSCULAR VOLUME 90.8 fl (80.0-96.0); WHITE BLOOD COUNT 13.4 10^3/uL (4.0-10.0)
[2021-05-03 14:08] LABS: PLATELET COUNT, AUTOMATED 73 10^3/uL (150-450)
[2021-05-03 15:01] LABS: CALCIUM LEVEL 9.1 MG/DL (8.8-10.2); CREATININE FOR GFR 1.3 MG/DL (0.70-1.30); GLOMERULAR FILTRATION RATE 56.4 (>35); POTASSIUM SERUM 3.7 MEQ/L (3.5-5.1)
[2021-05-03] MEDS ORDERED: cefTRIAXone SOD 1 GM in D5W MINI-BAG PLUS 50 ML IV ONE (19:15)
[2021-05-03] MEDS ORDERED: MEROPENEM INJ 1 GM in IV 1 EA IV SCH (19:55)
[2021-05-03 22:00] VITALS: BP 155/62
[2021-05-03] MEDS: risperiDONE 1 MG TAB PO SCH (22:16)
[2021-05-03] MEDS: POTASSIUM CHLORIDE 10 MEQ SR TABLET PO SCH (22:16)
[2021-05-03] MEDS: MEROPENEM INJ 1 GM in IV 1 EA IV SCH (22:16)
[2021-05-03] MEDS: RAMELTEON 8 MG TAB (ROZEREM) PO SCH (22:16)
[2021-05-04 06:11] LABS: HEMATOCRIT 37.4 % (42.0-52.0); HEMOGLOBIN 11.7 g/dl (13.5-17.5); MEAN CORPUSCULAR HEMOGLOBIN 28.3 pg (27.0-33.0); MEAN CORPUSCULAR HGB CONC 31.3 g/dl (32.0-36.5); MEAN CORPUSCULAR VOLUME 90.6 fl (80.0-96.0); RED BLOOD COUNT 4.13 10^6/uL (4.30-6.10); WHITE BLOOD COUNT 10.6 10^3/uL (4.0-10.0)
[2021-05-04 06:15] LABS: PLATELET COUNT, AUTOMATED 84 10^3/uL (150-450)
[2021-05-04 06:33] LABS: BLOOD UREA NITROGEN 51 MG/DL (7-18); CARBON DIOXIDE LEVEL 34 MEQ/L (21-32); CHLORIDE LEVEL 102 MEQ/L (98-107); CREATININE FOR GFR 1.09 MG/DL (0.70-1.30); GLOMERULAR FILTRATION RATE > 60.0 (>35); GLUCOSE, FASTING 120 MG/DL (70-100); POTASSIUM SERUM 3.5 MEQ/L (3.5-5.1); SODIUM LEVEL 140 MEQ/L (136-145)
[2021-05-04] MEDS: HumaLOG INSULIN (NovoLOG) PER UNIT SC SCH ×4 (07:30→21:00)
[2021-05-04] MEDS: predniSONE 50 MG TAB PO SCH (10:12)
[2021-05-04] MEDS: bisoproloL fumarate 10 MG TAB PO SCH (10:12)
[2021-05-04] MEDS: DOCUSATE SODIUM 100MG CAPSULE PO SCH ×2 (10:12→21:51)
[2021-05-04] MEDS: FOLIC ACID 1 MG TAB PO SCH (10:12)
[2021-05-04] MEDS: PANTOPRAZOLE 40MG TAB (PROTONIX) PO SCH (10:12)
[2021-05-04] MEDS: MEROPENEM INJ 1 GM in IV 1 EA IV SCH ×2 (10:12→17:44)
[2021-05-04] MEDS: ALPRAZolam 0.25 MG TAB PO SCH ×2 (10:12→21:51)
[2021-05-04] MEDS: levETIRAcetam 250MG TABLET (KEPPRA) PO SCH ×2 (10:12→21:51)
[2021-05-04] MEDS: FUROSEMIDE 40 MG TAB PO SCH (10:13)
[2021-05-04] MEDS: NYSTATIN 100,000 UNITS/GM TOPICAL PWD 15 GM TOP SCH ×2 (10:13→22:24)
--- NOTE | 2021-05-04 21:14 | IPNPDOC ---
Subjective Date Seen The patient was seen on 05/04/21. Subjective Chief Complaint/HPI Sitting up in bed being fed by staff. Watching TV. answered some yes no questions but slow resposes takes time to anwer a question. Objective Physical Examination General Exam: Positive: Alert, Cooperative, No Acute Distress (he is being fed when I entered the room) Eye Exam: Positive: PERRLA; Negative: Sclera icteric ENT Exam: Positive: Atraumatic, Mucous membr. moist/pink Neck Exam: Positive: Supple; Negative: Lymphadenopathy Chest Exam: Positive: Clear to auscultation, Diminished Heart Exam: Positive: Irregular Rhythm, Normal S1, Normal S2, Murmurs (there is a 3/6 systolic murmur at the cardiac base) Abdomen Exam: Positive: Normal bowel sounds, Soft; Negative: Tenderness Extremity Exam: Positive: Other (some changes of chronic stasis dermatitis); Negative: Edema Neuro Exam: Negative: Normal Speech (he answers simple yes/no questions, short sentences.but can't really engage in conversation or answer orientation questions more than that) Psych Exam: Negative: Mental status NL, Memory Intact Assessment /Plan Assessment This is a 81 year old with a PMH of Dementia, ITP, 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 He was found to have Ecoli UTI. It was felt he had metabolic encephalopathy with progressing dementia causing the alteration in his mental status. Metabolic encephalopathy with progression of dementia Likely due to UTI. Patient appears to have improved, likely baseline. Indwelling solis catheter-related UTI pt has chronic solis catheter, UC positive for Escherichia coli from 04/23/21 was treated with cipro followed by nitrofurantoin. However there was a rise in WBC inspite of the above. On 05/03/21 solis was changed an new UA sent , UC still pending. He was started on meropenem. ITP. Received IVIG on 04/25/21 and now on prednisone 50 mg. received 1 unit of platelet transfusions on 04/26/2021. Continue prednisone Had Nplate on 05/02/21 Dementia. Alprazolam, and risperidone. BPH with chronic urinary retension Continue chronic Solis catheter. Type 2 diabetes mellitus. Continue sliding scale insulin, levemir Seizure disorder. Continue home anti-seizure medication including Keppra 250 mg every day and 500 mg every night. Paroxysmal atrial fibrillation. Patient is currently not on anticoagulation because he has thrombocytopenia. Continue bisoprolol fumarate 10 mg home dose Deconditioning. will need Sub acute rehab GI prophylaxis: pantoprazole Plan/VTE VTE Prophylaxis Ordered?: Yes VTE Exclusion Mechanical Proph: N/A:VTE Prophy Ordered VTE Exclusion Pharmacological: Bleeding Risk VS, I&O, 24H, Fishbone Vital Signs/I&O Vital Signs Date Time Temp Pulse Resp B/P (MAP) Pulse Ox O2 Delivery O2 Flow Rate FiO2 05/04/21 10:12 82 137/66 05/03/21 22:00 97.7 18 93 Room Air I&O- Last 24 Hours up to 6 AM 05/04/21 07:00 Intake Total 890 ml Output Total 650 ml Balance 240 ml Laboratory Data 24H LABS Laboratory Tests 2 05/04/21 05:32: Nucleated Red Blood Cells % (auto) 0.2H, Anion Gap 4L, Glomerular Filtration Rate > 60.0, Calcium Level 9.0 05/04/21 12:25: Bedside Glucose (Misc Panel) 240H 05/04/21 16:24: Bedside Glucose (Misc Panel) 230H CBC/BMP Laboratory Tests 05/04/21 05:32 Microbiology Microbiology 05/02/21 Urine Culture, Received Pending SPARKLE WALKER MD May 04, 2021 21:14
[2021-05-04] MEDS: RAMELTEON 8 MG TAB (ROZEREM) PO SCH (21:51)
[2021-05-04] MEDS: LEVEMIR (INSULIN DETEMIR) 1 UNITS/0.01ML SC SCH (21:52)
[2021-05-04] MEDS: POTASSIUM CHLORIDE 10 MEQ SR TABLET PO SCH (21:52)
[2021-05-04] MEDS: risperiDONE 1 MG TAB PO SCH (21:52)
[2021-05-04 22:00] VITALS: BP 151/85
[2021-05-05] MEDS: MEROPENEM INJ 1 GM in IV 1 EA IV SCH ×2 (02:22→10:27)
[2021-05-05 06:00] VITALS: BP 119/71
[2021-05-05] MEDS: HumaLOG INSULIN (NovoLOG) PER UNIT SC SCH ×4 (07:30→22:04)
[2021-05-05 08:32] LABS: BASO % 0.3 % (0.0-1.0); EOS % 0.1 % (0.0-3.0); HEMATOCRIT 40.3 % (42.0-52.0); HEMOGLOBIN 12.4 g/dl (13.5-17.5); LYMPH # 1.6 10^3/uL (1.5-5.0); LYMPH % 13.8 % (24.0-44.0); MEAN CORPUSCULAR HEMOGLOBIN 27.8 pg (27.0-33.0); MEAN CORPUSCULAR HGB CONC 30.8 g/dl (32.0-36.5); MEAN CORPUSCULAR VOLUME 90.4 fl (80.0-96.0); MONO # 0.7 10^3/uL (0.0-0.8); MONO % 6.4 % (2.0-8.0); NEUTROPHILS # 8.8 10^3/uL (1.5-8.5); NEUTROPHILS % 77.9 % (36.0-66.0); PLATELET COUNT, AUTOMATED 126 10^3/uL (150-450); RED BLOOD COUNT 4.46 10^6/uL (4.30-6.10); WHITE BLOOD COUNT 11.3 10^3/uL (4.0-10.0)
[2021-05-05 08:42] LABS: BLOOD UREA NITROGEN 42 MG/DL (7-18); CALCIUM LEVEL 9.5 MG/DL (8.8-10.2); CARBON DIOXIDE LEVEL 32 MEQ/L (21-32); CHLORIDE LEVEL 104 MEQ/L (98-107); CREATININE FOR GFR 1.13 MG/DL (0.70-1.30); GLOMERULAR FILTRATION RATE > 60.0 (>35); GLUCOSE, FASTING 94 MG/DL (70-100); POTASSIUM SERUM 3.4 MEQ/L (3.5-5.1); SODIUM LEVEL 142 MEQ/L (136-145)
[2021-05-05] MEDS: ALPRAZolam 0.25 MG TAB PO SCH ×2 (09:00→18:15)
[2021-05-05] MEDS: FOLIC ACID 1 MG TAB PO SCH (10:34)
[2021-05-05] MEDS: bisoproloL fumarate 10 MG TAB PO SCH (10:35)
[2021-05-05] MEDS: FUROSEMIDE 40 MG TAB PO SCH (10:35)
[2021-05-05] MEDS: levETIRAcetam 250MG TABLET (KEPPRA) PO SCH ×2 (10:36→22:03)
[2021-05-05] MEDS: predniSONE 50 MG TAB PO SCH (10:36)
[2021-05-05] MEDS: DOCUSATE SODIUM 100MG CAPSULE PO SCH ×2 (10:36→22:03)
[2021-05-05] MEDS: PANTOPRAZOLE 40MG TAB (PROTONIX) PO SCH (10:36)
[2021-05-05] MEDS: NYSTATIN 100,000 UNITS/GM TOPICAL PWD 15 GM TOP SCH ×2 (10:37→22:04)
--- NOTE | 2021-05-05 11:56 | IPNPDOC ---
Subjective Date Seen The patient was seen on 05/05/21. Subjective Chief Complaint/HPI No issues overnight. Very somnolent this morning. difficult to wake up. Was having trouble swallowing and was coughing with thin liquids this morning. Will hold all sedating meds today and tonight. More awake in the afternoon and able to talk a one or two words , smile a little and appropriate nod head to questions. He did eat some pureed food in the late afternoon. Objective Physical Examination General Exam: Positive: Alert, Cooperative, No Acute Distress (he is being fed when I entered the room) Eye Exam: Positive: PERRLA; Negative: Sclera icteric ENT Exam: Positive: Atraumatic, Mucous membr. moist/pink Neck Exam: Positive: Supple; Negative: Lymphadenopathy Chest Exam: Positive: Clear to auscultation, Diminished Heart Exam: Positive: Irregular Rhythm, Normal S1, Normal S2, Murmurs (there is a 3/6 systolic murmur at the cardiac base) Abdomen Exam: Positive: Normal bowel sounds, Soft; Negative: Tenderness Extremity Exam: Positive: Other (some changes of chronic stasis dermatitis); Negative: Edema Neuro Exam: Negative: Normal Speech (he answers simple yes/no questions, short sentences.but can't really engage in conversation or answer orientation questions more than that) Psych Exam: Negative: Mental status NL, Memory Intact Assessment /Plan Assessment This is a 81 year old with a PMH of Dementia, ITP, 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 He was found to have Ecoli UTI. It was felt he had metabolic encephalopathy with progressing dementia causing the alteration in his mental status. Excessive somnolence today likely medication related will reduce dose of alprazolam, resperidal . Change rozirem to prn. for today will hold all sedating meds. If mental status still not improved by tomorrow will likely get an MRI. Metabolic encephalopathy with progression of dementia Likely due to UTI. Patient appears to have improved, likely baseline. Indwelling solis catheter-related UTI- treated. pt has chronic solis catheter, UC positive for Escherichia coli from 04/23/21 was treated with cipro followed by nitrofurantoin. However there was a rise in WBC inspite of the above. On 05/03/21 solis was changed an new UA sent , UC with only 30K CFu of ecoli and 30K CFU of yeast. Will dc meropenem. ITP. Received IVIG on 04/25/21 and now on prednisone 50 mg and gets romiplostim weekly. received 1 unit of platelet transfusions on 04/26/2021. Continue prednisone Had Nplate on 05/02/21 platelet up to 126. Dementia. Alprazolam, and risperidone. BPH with chronic urinary retension Continue chronic Solis catheter. Type 2 diabetes mellitus. Continue sliding scale insulin, levemir Seizure disorder. Continue home anti-seizure medication including Keppra 250 mg every day and 500 mg every night. Paroxysmal atrial fibrillation. Patient is currently not on anticoagulation because he has thrombocytopenia. Continue bisoprolol fumarate 10 mg home dose Deconditioning. will need Sub acute rehab H/O CHF He may be getting a little intravascularly depleted, this could raise the WBC also. will reduce lasix. GI prophylaxis: pantoprazole Plan/VTE VTE Prophylaxis Ordered?: Yes VTE Exclusion Mechanical Proph: N/A:VTE Prophy Ordered VS, I&O, 24H, Fishbone Vital Signs/I&O Vital Signs Date Time Temp Pulse Resp B/P (MAP) Pulse Ox O2 Delivery O2 Flow Rate FiO2 05/05/21 10:35 66 116/52 05/05/21 06:00 96.1 18 96 Room Air I&O- Last 24 Hours up to 6 AM 05/05/21 06:00 Intake Total 330 ml Output Total 1150 ml Balance -820 ml Laboratory Data 24H LABS Laboratory Tests 2 05/04/21 12:25: Bedside Glucose (Misc Panel) 240H 05/04/21 16:24: Bedside Glucose (Misc Panel) 230H 05/04/21 21:03: Bedside Glucose (Misc Panel) 236H 05/05/21 06:42: Bedside Glucose (Misc Panel) 105 05/05/21 07:49: Immature Granulocyte % (Auto) 1.5, Neutrophils (%) (Auto) 77.9H, Lymphocytes (%) (Auto) 13.8L, Monocytes (%) (Auto) 6.4, Eosinophils (%) (Auto) 0.1, Basophils (%) (Auto) 0.3, Neutrophils # (Auto) 8.8H, Lymphocytes # (Auto) 1.6, Monocytes # (Auto) 0.7, Eosinophils # (Auto) 0.0, Basophils # (Auto) 0.0, Nucleated Red Blood Cells % (auto) 0.3H, Anion Gap 6L, Glomerular Filtration Rate > 60.0, Calcium Level 9.5 05/05/21 11:36: Bedside Glucose (Misc Panel) 159H CBC/BMP Laboratory Tests 05/05/21 07:49 Microbiology Microbiology 05/02/21 Urine Culture - Final, Complete Escherichia Coli Yeast Like Organism SPARKLE WALKER MD May 05, 2021 11:56
[2021-05-05] MEDS ORDERED: POTASSIUM CHLORIDE 10 MEQ SR TABLET PO ONE (12:00)
[2021-05-05 14:00] VITALS: BP 136/62
[2021-05-05] MEDS ORDERED: NS 500 ML IV ONE (17:35)
[2021-05-05] MEDS: NYSTATIN 500,000 U/5 ML SUSP UDC SS SCH ×2 (17:47→22:03)
[2021-05-05] MEDS: ACETAMINOPHEN TAB 650MG DOSE (2X325MG) PO PRN (18:03)
[2021-05-05] MEDS: risperiDONE 1 MG TAB PO SCH (18:15)
[2021-05-05] MEDS ORDERED: RAMELTEON 8 MG TAB (ROZEREM) PO PRN (21:00)
[2021-05-05 22:00] VITALS: BP 135/73
[2021-05-05] MEDS: POTASSIUM CHLORIDE 10 MEQ SR TABLET PO SCH (22:03)
[2021-05-05] MEDS: LEVEMIR (INSULIN DETEMIR) 1 UNITS/0.01ML SC SCH (22:04)
[2021-05-06 06:00] VITALS: BP 125/67
[2021-05-06] MEDS: HumaLOG INSULIN (NovoLOG) PER UNIT SC SCH ×4 (07:05→23:59)
[2021-05-06] MEDS ORDERED: FUROSEMIDE 20 MG TAB PO SCH (09:00)
[2021-05-06] MEDS: NYSTATIN 100,000 UNITS/GM TOPICAL PWD 15 GM TOP SCH ×2 (09:17→21:00)
[2021-05-06] MEDS: FOLIC ACID 1 MG TAB PO SCH (09:18)
[2021-05-06] MEDS: levETIRAcetam 250MG TABLET (KEPPRA) PO SCH (09:18)
[2021-05-06] MEDS: NYSTATIN 500,000 U/5 ML SUSP UDC SS SCH ×3 (09:18→21:00)
[2021-05-06] MEDS: predniSONE 50 MG TAB PO SCH (09:18)
[2021-05-06] MEDS: DOCUSATE SODIUM 100MG CAPSULE PO SCH (09:18)
[2021-05-06] MEDS: PANTOPRAZOLE 40MG TAB (PROTONIX) PO SCH (09:19)
[2021-05-06] MEDS: bisoproloL fumarate 10 MG TAB PO SCH (09:20)
[2021-05-06 14:00] VITALS: BP 141/63
--- NOTE | 2021-05-06 19:07 | IPNPDOC ---
Subjective Date Seen The patient was seen on 05/06/21. Subjective Chief Complaint/HPI Patient much more awake today, ate a few bites fo muffin and banana, worked a bit with PT. Objective Physical Examination General Exam: Positive: Alert, Cooperative, No Acute Distress Eye Exam: Positive: PERRLA; Negative: Sclera icteric ENT Exam: Positive: Atraumatic, Mucous membr. moist/pink Neck Exam: Positive: Supple; Negative: Lymphadenopathy Chest Exam: Positive: Clear to auscultation, Diminished Heart Exam: Positive: Irregular Rhythm, Normal S1, Normal S2, Murmurs (there is a 3/6 systolic murmur at the cardiac base) Abdomen Exam: Positive: Normal bowel sounds, Soft; Negative: Tenderness Extremity Exam: Positive: Other (some changes of chronic stasis dermatitis); Negative: Edema Neuro Exam: Negative: Normal Speech (he answers simple yes/no questions, short sentences.but can't really engage in conversation or answer orientation questions more than that) Psych Exam: Negative: Mental status NL, Memory Intact Assessment /Plan Assessment This is a 81 year old with a PMH of Dementia, ITP, 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 He was found to have Ecoli UTI. It was felt he had metabolic encephalopathy with progressing dementia causing the alteration in his mental status. Metabolic encephalopathy with progression of dementia Initialy due to UTI then due to sedating medications. Patient appears to have improved today, More awake able to eat a little and taling few words. Alprazolam and respiridal reduced. rozirem stopped. Indwelling solis catheter-related UTI- treated. pt has chronic solis catheter, UC positive for Escherichia coli from 04/23/21 was treated with cipro followed by nitrofurantoin. However there was a rise in WBC inspite of the above. On 05/03/21 solis was changed an new UA sent , UC with only 30K CFu of ecoli and 30K CFU of yeast. dced meropenem. ITP. Received IVIG on 04/25/21 and now on prednisone 50 mg and gets romiplostim weekly. received 1 unit of platelet transfusions on 04/26/2021. Continue prednisone Had Nplate on 05/02/21 platelet up Dementia. Alprazolam, and risperidone sdosages reducd as causing too much somnolence. BPH with chronic urinary retension Continue chronic Solis catheter. Type 2 diabetes mellitus. Continue sliding scale insulin, levemir Seizure disorder. Continue home anti-seizure medication including Keppra 250 mg every day and 500 mg every night. Paroxysmal atrial fibrillation. Patient is currently not on anticoagulation because he has thrombocytopenia. Continue bisoprolol fumarate 10 mg home dose Deconditioning. will need Sub acute rehab H/O CHF He may be getting a little intravascularly depleted, this could raise the WBC also. lasix held for now as not adequete oral intake. GI prophylaxis: pantoprazole Plan/VTE VTE Prophylaxis Ordered?: Yes VS, I&O, 24H, Fishbone Vital Signs/I&O Vital Signs Date Time Temp Pulse Resp B/P (MAP) Pulse Ox O2 Delivery O2 Flow Rate FiO2 05/06/21 14:00 97.7 81 16 141/63 (89) 94 Room Air I&O- Last 24 Hours up to 6 AM 05/06/21 06:00 Intake Total 70 ml Output Total 500 ml Balance -430 ml Laboratory Data 24H LABS Laboratory Tests 2 05/05/21 20:09: Bedside Glucose (Misc Panel) 363H 05/06/21 06:55: Bedside Glucose (Misc Panel) 76L 05/06/21 11:19: Bedside Glucose (Misc Panel) 176H 05/06/21 16:24: Bedside Glucose (Misc Panel) 477H Microbiology Microbiology 05/02/21 Urine Culture - Final, Complete Escherichia Coli Yeast Like Organism SPARKLE WALKER MD May 06, 2021 19:07
[2021-05-06] MEDS: risperiDONE 1 MG TAB PO SCH (21:00)
[2021-05-06] MEDS: ALPRAZolam 0.25 MG TAB PO SCH (21:00)
[2021-05-06 22:00] VITALS: BP 109/67
[2021-05-07] MEDS: POTASSIUM CHLORIDE 10 MEQ SR TABLET PO SCH ×2 (00:01→21:40)
[2021-05-07 05:58] LABS: BASO % 0.1 % (0.0-1.0); EOS % 0.1 % (0.0-3.0); HEMATOCRIT 38.1 % (42.0-52.0); HEMOGLOBIN 11.8 g/dl (13.5-17.5); LYMPH # 1.8 10^3/uL (1.5-5.0); LYMPH % 14.4 % (24.0-44.0); MEAN CORPUSCULAR HEMOGLOBIN 27.7 pg (27.0-33.0); MEAN CORPUSCULAR VOLUME 89.4 fl (80.0-96.0); MONO # 0.9 10^3/uL (0.0-0.8); MONO % 6.9 % (2.0-8.0); NEUTROPHILS # 9.8 10^3/uL (1.5-8.5); NEUTROPHILS % 77.3 % (36.0-66.0); PLATELET COUNT, AUTOMATED 205 10^3/uL (150-450); RED BLOOD COUNT 4.26 10^6/uL (4.30-6.10); WHITE BLOOD COUNT 12.7 10^3/uL (4.0-10.0)
[2021-05-07 06:00] VITALS: BP 120/65
[2021-05-07 06:19] LABS: BLOOD UREA NITROGEN 45 MG/DL (7-18); CALCIUM LEVEL 9.4 MG/DL (8.8-10.2); CARBON DIOXIDE LEVEL 31 MEQ/L (21-32); CHLORIDE LEVEL 110 MEQ/L (98-107); CREATININE FOR GFR 1.23 MG/DL (0.70-1.30); GLOMERULAR FILTRATION RATE > 60.0 (>35); GLUCOSE, FASTING 87 MG/DL (70-100); POTASSIUM SERUM 3.7 MEQ/L (3.5-5.1); SODIUM LEVEL 145 MEQ/L (136-145)
[2021-05-07] MEDS: HumaLOG INSULIN (NovoLOG) PER UNIT SC SCH ×4 (07:30→21:39)
[2021-05-07] MEDS: NYSTATIN 500,000 U/5 ML SUSP UDC SS SCH ×3 (09:00→21:38)
[2021-05-07] MEDS: NYSTATIN 100,000 UNITS/GM TOPICAL PWD 15 GM TOP SCH ×2 (09:47→21:00)
[2021-05-07] MEDS: FOLIC ACID 1 MG TAB PO SCH (09:48)
[2021-05-07] MEDS: predniSONE 50 MG TAB PO SCH (09:48)
[2021-05-07] MEDS: PANTOPRAZOLE 40MG TAB (PROTONIX) PO SCH (09:48)
[2021-05-07] MEDS: ROMIPLOSTIM SC SCH (09:48)
[2021-05-07] MEDS: DOCUSATE SODIUM 100MG CAPSULE PO SCH ×3 (09:48→21:39)
[2021-05-07] MEDS: levETIRAcetam 250MG TABLET (KEPPRA) PO SCH ×3 (09:49→21:40)
[2021-05-07] MEDS: bisoproloL fumarate 10 MG TAB PO SCH (09:53)
[2021-05-07] MEDS ORDERED: NS 1,000 ML IV ONE (13:40)
[2021-05-07 14:00] VITALS: BP 130/60
--- NOTE | 2021-05-07 14:02 | IPNPDOC ---
Subjective Date Seen The patient was seen on 05/07/21. Subjective Chief Complaint/HPI Patient sitting in chair today. He was able to ambulate to the doo with 1 assist. Spoke to at bedside and rehab and she is ok with it. Requested COVID vaccine prior to discharge will order one. Labs from today suggest intravascular volume depletion with gradually rring BUN, rising Na, higher Hb than admission, much higher Platelet. will give 1 liter IVF bolus. Lasix has been discontinued. Objective Physical Examination General Exam: Positive: Alert, Cooperative, No Acute Distress Eye Exam: Positive: PERRLA; Negative: Sclera icteric ENT Exam: Positive: Atraumatic, Mucous membr. moist/pink Neck Exam: Positive: Supple; Negative: Lymphadenopathy Chest Exam: Positive: Clear to auscultation, Diminished Heart Exam: Positive: Irregular Rhythm, Normal S1, Normal S2, Murmurs (there is a 3/6 systolic murmur at the cardiac base) Abdomen Exam: Positive: Normal bowel sounds, Soft; Negative: Tenderness Extremity Exam: Positive: Other (some changes of chronic stasis dermatitis); Negative: Edema Neuro Exam: Negative: Normal Speech (he answers simple yes/no questions, short sentences.but can't really engage in conversation or answer orientation questions more than that) Psych Exam: Negative: Mental status NL, Memory Intact Assessment /Plan Assessment This is a 81 year old with a PMH of Dementia, ITP, 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 He was found to have Ecoli UTI. It wa s felt he had metabolic encephalopathy with progressing dementia causing the alteration in his mental status. Mild dehydration encourage oral free water intake about 800 cc / day will give NS 1 liter bolus today. Oral thrush continue nystatin. Metabolic encephalopathy with progression of dementia Initially due to UTI then due to sedating medications. Patient appears to have improved, close to baseline as per . Alprazolam and respiridal reduced. rozirem stopped. Indwelling solis catheter-related UTI- treated. pt has chronic solis catheter, UC positive for Escherichia coli from 04/23/21 was treated with cipro followed by nitrofurantoin. However there was a rise in WBC inspite of the above. On 05/03/21 solis was changed an new UA sent , UC with only 30K CFu of ecoli and 30K CFU of yeast. dced meropenem. ITP. Received IVIG on 04/25/21 and now on prednisone 50 mg and gets romiplostim weekly. received 1 unit of platelet transfusions on 04/26/2021. Continue prednisone Had Nplate on 05/02/21 platelet up to normal range. Dementia. Alprazolam, and risperidone dosages reduced as causing too much somnolence. BPH with chronic urinary retension Continue chronic Solis catheter. Type 2 diabetes mellitus. uncontrolled likely due to prednisone. Continue sliding scale insulin, levemir Seizure disorder. Continue home anti-seizure medication including Keppra 250 mg every day and 500 mg every night. Paroxysmal atrial fibrillation. Patient is currently not on anticoagulation because he has thrombocytopenia. Continue bisoprolol fumarate 10 mg home dose Deconditioning. will need Sub acute rehab H/O CHF He may be getting a little intravascularly depleted, this could raise the WBC also. lasix held for now as not adequete oral intake. GI prophylaxis: pantoprazole Plan/VTE VTE Prophylaxis Ordered?: Yes VS, I&O, [facility]H, [facility] Vital Signs/I&O Vital Signs Date Time Temp Pulse Resp B/P (MAP) Pulse Ox O2 Delivery O2 Flow Rate FiO2 05/07/21 09:53 89 111/52 05/07/21 06:00 96.5 15 97 Room Air I&O- Last 24 Hours up to 6 AM 05/07/21 06:00 Intake Total 540 ml Output Total 900 ml Balance -360 ml Laboratory Data 24H LABS Laboratory Tests 2 05/06/21 16:24: Bedside Glucose (Misc Panel) 477H 05/06/21 20:22: Bedside Glucose (Misc Panel) 386H 05/07/21 05:33: Immature Granulocyte % (Auto) 1.2, Neutrophils (%) (Auto) 77.3H, Lymphocytes (%) (Auto) 14.4L, Monocytes (%) (Auto) 6.9, Eosinophils (%) (Auto) 0.1, Basophils (%) (Auto) 0.1, Neutrophils # (Auto) 9.8H, Lymphocytes # (Auto) 1.8, Monocytes # (Auto) 0.9H, Eosinophils # (Auto) 0.0, Basophils # (Auto) 0.0, Nucleated Red Blood Cells % (auto) 0.0, Anion Gap 4L, Glomerular Filtration Rate > 60.0, Calcium Level 9.4 05/07/21 11:37: Bedside Glucose (Misc Panel) 227H CBC/BMP Laboratory Tests 05/07/21 05:33 Microbiology Microbiology 05/02/21 Urine Culture - Final, Complete Escherichia Coli Yeast Like Organism SPARKLE WALKER MD May 07, 2021 14:02
[2021-05-07] MEDS: risperiDONE 1 MG TAB PO SCH (21:00)
[2021-05-07] MEDS: ALPRAZolam 0.25 MG TAB PO SCH (21:00)
[2021-05-07] MEDS: ACETAMINOPHEN TAB 650MG DOSE (2X325MG) PO PRN (21:39)
[2021-05-07] MEDS: LEVEMIR (INSULIN DETEMIR) 1 UNITS/0.01ML SC SCH ×2 (21:39)
[2021-05-07 22:00] VITALS: BP 104/59
[2021-05-08 06:00] VITALS: BP 123/59
[2021-05-08] MEDS: HumaLOG INSULIN (NovoLOG) PER UNIT SC SCH ×4 (07:30→21:00)
[2021-05-08 08:15] LABS: BASO % 0.1 % (0.0-1.0); EOS % 0.3 % (0.0-3.0); HEMATOCRIT 33.4 % (42.0-52.0); HEMOGLOBIN 10.3 g/dl (13.5-17.5); LYMPH # 1.7 10^3/uL (1.5-5.0); LYMPH % 17.9 % (24.0-44.0); MEAN CORPUSCULAR HEMOGLOBIN 28.2 pg (27.0-33.0); MEAN CORPUSCULAR HGB CONC 30.8 g/dl (32.0-36.5); MEAN CORPUSCULAR VOLUME 91.5 fl (80.0-96.0); MONO # 0.5 10^3/uL (0.0-0.8); MONO % 5.6 % (2.0-8.0); NEUTROPHILS % 75.1 % (36.0-66.0); PLATELET COUNT, AUTOMATED 172 10^3/uL (150-450); RED BLOOD COUNT 3.65 10^6/uL (4.30-6.10); WHITE BLOOD COUNT 9.3 10^3/uL (4.0-10.0)
[2021-05-08 08:37] LABS: BLOOD UREA NITROGEN 41 MG/DL (7-18); CALCIUM LEVEL 8.7 MG/DL (8.8-10.2); CARBON DIOXIDE LEVEL 30 MEQ/L (21-32); CHLORIDE LEVEL 114 MEQ/L (98-107); CREATININE FOR GFR 0.96 MG/DL (0.70-1.30); GLOMERULAR FILTRATION RATE > 60.0 (>35); GLUCOSE, FASTING 101 MG/DL (70-100); POTASSIUM SERUM 3.7 MEQ/L (3.5-5.1); SODIUM LEVEL 147 MEQ/L (136-145)
[2021-05-08] MEDS: bisoproloL fumarate 10 MG TAB PO SCH (09:00)
[2021-05-08] MEDS: NYSTATIN 100,000 UNITS/GM TOPICAL PWD 15 GM TOP SCH ×2 (10:06→21:11)
[2021-05-08] MEDS: NYSTATIN 500,000 U/5 ML SUSP UDC SS SCH ×3 (10:12→21:05)
[2021-05-08] MEDS: predniSONE 50 MG TAB PO SCH (10:13)
[2021-05-08] MEDS: FOLIC ACID 1 MG TAB PO SCH (10:13)
[2021-05-08] MEDS: DOCUSATE SODIUM 100MG CAPSULE PO SCH ×2 (10:13→21:05)
[2021-05-08] MEDS: levETIRAcetam 250MG TABLET (KEPPRA) PO SCH ×2 (10:13→21:10)
[2021-05-08] MEDS: PANTOPRAZOLE 40MG TAB (PROTONIX) PO SCH (10:13)
--- NOTE | 2021-05-08 13:20 | IPNPDOC ---
Text Note Date of Service The patient was seen on 05/08/21. NOTE Patient seen at bedside . Somnolent in the morning more awake in the late mor ginger. Does need to be feed. comes for lunch and dinner. Physical Exam: vitals as below Awake and alert speaks a few words. chest clear to auscultation CVS regular, normal S1, S2. Abdomen soft nontender bowel sounds normal Extremities no edema labs reviewed. Plan: continue current management. Encourage and offer free water at leat 1000 ml / day has seems to be getting intravascularly depleted with Na at 147. He did get 1 liter of fluid yesterday with improvement of WBC. was requesting COVID vaccine. I discussed with Pharmacy but as he is on high dose steroids he is not a candidate at this time. Steroids or other immunosuppressants has be be held 2 weeks before and 2 weeks after the vaccine. Also vaccinations are done for 3 to 6 Patients at a time as the vial gets spoiled in 6 hours after opening and has 6 doses in it. This was communicated to patient's . VS,Justen, I+O VSJusten, I+O Laboratory Tests 05/08/21 07:51 Vital Signs Date Time Temp Pulse Resp B/P (MAP) Pulse Ox O2 Delivery O2 Flow Rate FiO2 05/08/21 09:00 60 110/54 05/08/21 06:00 96.8 16 99 Room Air I&O- Last 24 Hours up to 6 AM 05/08/21 06:00 Intake Total 2380 ml Output Total 800 ml Balance 1580 ml SPARKLE WALKER MD May 08, 2021 13:20
[2021-05-08 14:00] VITALS: BP 136/58
[2021-05-08] MEDS: risperiDONE 1 MG TAB PO SCH (21:04)
[2021-05-08] MEDS: POTASSIUM CHLORIDE 10 MEQ SR TABLET PO SCH (21:05)
[2021-05-08] MEDS: ALPRAZolam 0.25 MG TAB PO SCH (21:10)
[2021-05-08] MEDS: LEVEMIR (INSULIN DETEMIR) 1 UNITS/0.01ML SC SCH (21:11)
[2021-05-08 22:00] VITALS: BP 137/60
[2021-05-09 06:00] VITALS: BP 134/61
[2021-05-09] MEDS: NYSTATIN 500,000 U/5 ML SUSP UDC SS SCH ×3 (08:16→20:20)
[2021-05-09] MEDS: DOCUSATE SODIUM 100MG CAPSULE PO SCH ×2 (08:21→20:20)
[2021-05-09] MEDS: PANTOPRAZOLE 40MG TAB (PROTONIX) PO SCH (08:21)
[2021-05-09] MEDS: predniSONE 50 MG TAB PO SCH (08:21)
[2021-05-09] MEDS: FOLIC ACID 1 MG TAB PO SCH (08:21)
[2021-05-09] MEDS: bisoproloL fumarate 10 MG TAB PO SCH (08:21)
[2021-05-09] MEDS: HumaLOG INSULIN (NovoLOG) PER UNIT SC SCH ×4 (08:21→21:00)
[2021-05-09] MEDS: levETIRAcetam 250MG TABLET (KEPPRA) PO SCH ×2 (08:21→20:20)
[2021-05-09] MEDS: NYSTATIN 100,000 UNITS/GM TOPICAL PWD 15 GM TOP SCH (08:24)
[2021-05-09 14:00] VITALS: BP 141/71
[2021-05-09] MEDS: POTASSIUM CHLORIDE 10 MEQ SR TABLET PO SCH (20:20)
[2021-05-09] MEDS: risperiDONE 1 MG TAB PO SCH (20:20)
[2021-05-09] MEDS: ALPRAZolam 0.25 MG TAB PO SCH (20:20)
[2021-05-09] MEDS: LEVEMIR (INSULIN DETEMIR) 1 UNITS/0.01ML SC SCH (20:21)
[2021-05-09 22:00] VITALS: BP 117/54
[2021-05-10] MEDS: NYSTATIN 100,000 UNITS/GM TOPICAL PWD 15 GM TOP SCH ×3 (00:43→22:32)
[2021-05-10 06:00] VITALS: BP 134/71
[2021-05-10] MEDS: NYSTATIN 500,000 U/5 ML SUSP UDC SS SCH ×3 (08:35→22:31)
[2021-05-10] MEDS: DOCUSATE SODIUM 100MG CAPSULE PO SCH ×2 (08:35→22:32)
[2021-05-10] MEDS: FOLIC ACID 1 MG TAB PO SCH (08:35)
[2021-05-10] MEDS: PANTOPRAZOLE 40MG TAB (PROTONIX) PO SCH (08:35)
[2021-05-10] MEDS: HumaLOG INSULIN (NovoLOG) PER UNIT SC SCH ×4 (08:35→21:00)
[2021-05-10] MEDS: predniSONE 50 MG TAB PO SCH (08:35)
[2021-05-10] MEDS: levETIRAcetam 250MG TABLET (KEPPRA) PO SCH ×2 (08:35→22:31)
[2021-05-10] MEDS: bisoproloL fumarate 10 MG TAB PO SCH (08:36)
--- NOTE | 2021-05-10 09:54 | IPNPDOC ---
Subjective Date Seen The patient was seen on 05/09/21. Subjective Chief Complaint/HPI No complains today . Mental status at baseline. cannot get COVID vaccine explained to as he is on high dose steroids. Objective Physical Examination General Exam: Positive: Alert, Cooperative, No Acute Distress Eye Exam: Positive: PERRLA; Negative: Sclera icteric ENT Exam: Positive: Atraumatic, Mucous membr. moist/pink Neck Exam: Positive: Supple; Negative: Lymphadenopathy Chest Exam: Positive: Clear to auscultation, Diminished Heart Exam: Positive: Irregular Rhythm, Normal S1, Normal S2, Murmurs (there is a 3/6 systolic murmur at the cardiac base) Abdomen Exam: Positive: Normal bowel sounds, Soft; Negative: Tenderness Extremity Exam: Positive: Other (some changes of chronic stasis dermatitis); Negative: Edema Neuro Exam: Negative: Normal Speech (he answers simple yes/no questions, short sentences.but can't really engage in conversation or answer orientation questions more than that) Psych Exam: Negative: Mental status NL, Memory Intact Assessment /Plan Assessment This is a 81 year old with a PMH of Dementia, ITP, 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 He was found to have Ecoli UTI. It was felt he had metabolic encephalopathy with progressing dementia causing the alteration in his mental status. Metabolic encephalopathy with progression of dementia Initially due to UTI then due to sedating medications. Patient appears to have improved, Now at baseline as per . Alprazolam and respiridal reduced. rozirem stopped. Mild Hypernatremia due to free water deficit due to reduced oral intake and dehydration Offer oral free water at least about 1000 cc / day Coccygeal decubitii x 2 stage 2 present on admission Oral thrush continue nystatin. Indwelling solis catheter-related UTI- treated. pt has chronic solis catheter, UC positive for Escherichia coli from 04/23/21 was treated with cipro followed by nitrofurantoin. However there was a rise in WBC inspite of the above. On 05/03/21 solis was changed an new UA sent , UC with only 30K CFu of ecoli and 30K CFU of yeast. dced meropenem. ITP. Received IVIG on 04/25/21 and now on prednisone 50 mg and gets romiplostim weekly. received 1 unit of platelet transfusions on 04/26/2021. Continue prednisone Had Nplate on 05/02/21 platelet up to normal range. Dementia. Alprazolam, and risperidone dosages reduced as causing too much somnolence. BPH with chronic urinary retension Continue chronic Solis catheter. Type 2 diabetes mellitus. uncontrolled likely due to prednisone. Continue sliding scale insulin, levemir Seizure disorder. Continue home anti-seizure medication including Keppra 250 mg every day and 500 mg every night. Paroxysmal atrial fibrillation. Patient is currently not on anticoagulation because he has thrombocytopenia. Continue bisoprolol fumarate 10 mg home dose Deconditioning. will need Sub acute rehab H/O CHF He may be getting a little intravascularly depleted with elevated WBC, elevated Na lasix stopped as not adequete oral intake. GI prophylaxis: pantoprazole Plan/VTE VTE Prophylaxis Ordered?: Yes VS, I&O, 24H, [facility] Vital Signs/I&O Vital Signs Date Time Temp Pulse Resp B/P (MAP) Pulse Ox O2 Delivery O2 Flow Rate FiO2 05/10/21 08:36 74 142/68 05/10/21 06:00 97.4 18 98 Room Air I&O- Last 24 Hours up to 6 AM 05/10/21 06:00 Intake Total 1108 ml Output Total 1100 ml Balance 8 ml Laboratory Data 24H LABS Laboratory Tests 2 05/09/21 11:18: Bedside Glucose (Misc Panel) 195H 05/09/21 16:33: Bedside Glucose (Misc Panel) 292H 05/09/21 20:18: Bedside Glucose (Misc Panel) 195H 05/10/21 07:24: Bedside Glucose (Misc Panel) 106 Microbiology Microbiology 05/02/21 Urine Culture - Final, Complete Escherichia Coli Yeast Like Organism SPARKLE WALKER MD May 10, 2021 09:54
--- NOTE | 2021-05-10 10:19 | IPNPDOC ---
Subjective Date Seen The patient was seen on 05/10/21. Subjective Chief Complaint/HPI No overnight issues, awake and talking a few words this morning. Objective Physical Examination General Exam: Positive: Alert, Cooperative, No Acute Distress Eye Exam: Positive: PERRLA; Negative: Sclera icteric ENT Exam: Positive: Atraumatic, Mucous membr. moist/pink Neck Exam: Positive: Supple; Negative: Lymphadenopathy Chest Exam: Positive: Clear to auscultation, Diminished Heart Exam: Positive: Irregular Rhythm, Normal S1, Normal S2, Murmurs (there is a 3/6 systolic murmur at the cardiac base) Abdomen Exam: Positive: Normal bowel sounds, Soft; Negative: Tenderness Extremity Exam: Positive: Other (some changes of chronic stasis dermatitis); Negative: Edema Neuro Exam: Negative: Normal Speech (he answers simple yes/no questions, short sentences.but can't really engage in conversation or answer orientation questions more than that) Psych Exam: Negative: Mental status NL, Memory Intact Assessment /Plan Assessment This is a 81 year old with a PMH of Dementia, ITP, chronic indwelling solis due to BPH and obstruction, DM, seizure disorder, Paroxysmal A fib, Congestive Heart Failure, CAD s/p stents, Left carotid endarterectomy, GERD, presented to [facility] ER with his reporting patient had alteration in his mental status, nausea, vomiting, with loss of appetite on 04/23/21. He was found to have Ecoli UTI. It was felt he had metabolic encephalopathy with progressing dementia causing the alteration in his mental status. Metabolic encephalopathy with progression of dementia Initially due to UTI then due to sedating medications. Patient appears to have improved, Now at baseline as per . Alprazolam and respiridal reduced. rozirem stopped. Mild Hypernatremia due to free water deficit due to reduced oral intake and dehydration Offer oral free water at least about 1000 cc / day Coccygeal decubitii x 2 stage 2 present on admission Oral thrush continue nystatin. Indwelling solis catheter-related UTI- treated. pt has chronic solis catheter, UC positive for Escherichia coli from 04/23/21 was treated with cipro followed by nitrofurantoin. However there was a rise in WBC inspite of the above. On 05/03/21 solis was changed an new UA sent , UC with only 30K CFu of ecoli and 30K CFU of yeast. dced meropenem. Thrombocytopenia Chronic refractory ITP received multiple line treatments. Also has pseudothrombocytopenia. EDTA free tube for platelet counts Currently on Nplate weekly, Had Nplate on 05/02/21 Received IVIG on 04/25/21 and now on prednisone 50 mg received 1 unit of platelet transfusions on 04/26/2021. Continue prednisone . Reduced dose by 10 mg every week till completely off it as long as platelet counts remain above 50 K. Dementia. Alprazolam, and risperidone dosages reduced as causing too much somnolence. Patient tends to sleep late into the morning. More awake and responsive when is here in the afternoons. Rest of the day mostly sleeps. BPH with chronic urinary retention Continue chronic Solis catheter. Type 2 diabetes mellitus. uncontrolled likely due to prednisone. Continue sliding scale insulin, levemir Seizure disorder. Continue home anti-seizure medication including Keppra 250 mg every day and 500 mg every night. Paroxysmal atrial fibrillation. Patient is currently not on anticoagulation because he has thrombocytopenia. Continue bisoprolol fumarate 10 mg home dose Deconditioning. will need Sub acute rehab H/O CHF He may be getting a little intravascularly depleted with elevated WBC, elevated Na lasix stopped as not adequete oral intake. GI prophylaxis: pantoprazole History of stage I [id number] adenocarcinoma of the ascending colon ( hepatic flexure) Moderately differentiated adenocarcinoma with mucinous features Residual villous adenoma near distal resection margin. status post right hemicolectomy Dr. Carvalho 2017 History of B12 deficiency used to be on monthly B12 shot Last Vit B12 was 340 on 04/20/21 restart as needed. Plan/VTE VTE Prophylaxis Ordered?: Yes VS, I&O, 24H, [facility] Vital Signs/I&O Vital Signs Date Time Temp Pulse Resp B/P (MAP) Pulse Ox O2 Delivery O2 Flow Rate FiO2 05/10/21 08:36 74 142/68 05/10/21 06:00 97.4 18 98 Room Air I&O- Last 24 Hours up to 6 AM 05/10/21 06:00 Intake Total 1108 ml Output Total 1100 ml Balance 8 ml Laboratory Data 24H LABS Laboratory Tests 2 05/09/21 11:18: Bedside Glucose (Misc Panel) 195H 05/09/21 16:33: Bedside Glucose (Misc Panel) 292H 05/09/21 20:18: Bedside Glucose (Misc Panel) 195H 05/10/21 07:24: Bedside Glucose (Misc Panel) 106 Microbiology Microbiology 05/02/21 Urine Culture - Final, Complete Escherichia Coli Yeast Like Organism SPARKLE WALKER MD May 10, 2021 10:19
[2021-05-10] MEDS ORDERED: LANTINJ4 SC (11:32)
[2021-05-10] MEDS ORDERED: ALPR0.25 PO (11:32)
[2021-05-10] MEDS ORDERED: RISP-8 PO (11:32)
[2021-05-10] MEDS ORDERED: NYST50SS SS (11:32)
[2021-05-10] MEDS ORDERED: PRED20TA PO (11:32)
[2021-05-10 14:56] LABS: BASO % 0.1 % (0.0-1.0); HEMATOCRIT 36.7 % (42.0-52.0); HEMOGLOBIN 11.4 g/dl (13.5-17.5); LYMPH # 0.5 10^3/uL (1.5-5.0); MEAN CORPUSCULAR HEMOGLOBIN 28.1 pg (27.0-33.0); MEAN CORPUSCULAR HGB CONC 31.1 g/dl (32.0-36.5); MEAN CORPUSCULAR VOLUME 90.6 fl (80.0-96.0); MONO # 0.2 10^3/uL (0.0-0.8); MONO % 1.7 % (2.0-8.0); NEUTROPHILS # 8.8 10^3/uL (1.5-8.5); NEUTROPHILS % 92.5 % (36.0-66.0); PLATELET COUNT, AUTOMATED 111 10^3/uL (150-450); RED BLOOD COUNT 4.05 10^6/uL (4.30-6.10); WHITE BLOOD COUNT 9.5 10^3/uL (4.0-10.0)
[2021-05-10 15:59] LABS: BLOOD UREA NITROGEN 22 MG/DL (7-18); CALCIUM LEVEL 8.9 MG/DL (8.8-10.2); CARBON DIOXIDE LEVEL 24 MEQ/L (21-32); CHLORIDE LEVEL 106 MEQ/L (98-107); CREATININE FOR GFR 1.01 MG/DL (0.70-1.30); GLOMERULAR FILTRATION RATE > 60.0 (>35); GLUCOSE, FASTING 306 MG/DL (70-100); POTASSIUM SERUM 4.2 MEQ/L (3.5-5.1); SODIUM LEVEL 139 MEQ/L (136-145)
[2021-05-10] MEDS: risperiDONE 1 MG TAB PO SCH (21:00)
[2021-05-10] MEDS: ALPRAZolam 0.25 MG TAB PO SCH (21:00)
[2021-05-10] MEDS: POTASSIUM CHLORIDE 10 MEQ SR TABLET PO SCH (22:31)
[2021-05-10] MEDS: LEVEMIR (INSULIN DETEMIR) 1 UNITS/0.01ML SC SCH (22:32)
[2021-05-11 06:00] VITALS: BP 127/63
[2021-05-11] MEDS: HumaLOG INSULIN (NovoLOG) PER UNIT SC SCH ×2 (07:30→11:59)
[2021-05-11] MEDS: NYSTATIN 500,000 U/5 ML SUSP UDC SS SCH (09:47)
[2021-05-11 09:48] VITALS: BP 127/63
[2021-05-11] MEDS: predniSONE 50 MG TAB PO SCH (09:48)
[2021-05-11] MEDS: levETIRAcetam 250MG TABLET (KEPPRA) PO SCH (09:48)
[2021-05-11] MEDS: bisoproloL fumarate 10 MG TAB PO SCH (09:48)
[2021-05-11] MEDS: NYSTATIN 100,000 UNITS/GM TOPICAL PWD 15 GM TOP SCH (09:48)
[2021-05-11] MEDS: DOCUSATE SODIUM 100MG CAPSULE PO SCH (09:48)
[2021-05-11] MEDS: PANTOPRAZOLE 40MG TAB (PROTONIX) PO SCH (09:48)
[2021-05-11] MEDS: FOLIC ACID 1 MG TAB PO SCH (09:48)
[2021-05-11] MEDS ORDERED: HYDR-3713 PO (12:02)
[2021-05-11] MEDS ORDERED: ALPR0.25 PO (12:02)
[2021-05-11] MEDS ORDERED: NPLA500I SC (12:02)
[2021-05-11] MEDS ORDERED: PRED20TA PO (12:02)
--- NOTE | 2021-05-11 15:08 | DS.PDOC ---
Discharge Summary General Date of Admission Apr 26, 2021 at 09:53 Date of Discharge 05/11/21 Discharge Summary PROCEDURES PERFORMED DURING STAY: [None]. DISCHARGE DIAGNOSES: Acute metabolic encephalopathy due to UTI and medications on the back ground of dementia Progressing Dementia Chronic indwelling Catheter related UTI Dehydration with hypernatremia due to poor oral intake resolved Chronic refractory ITP Pseudothrombocytopenia needs EDTA free vial for platelet count Thrush Coccygeal decubiti BPH with indwelling solis Diabetes Adenocarcinoma of the ascending colon ( hepatic flexure) s/p right hemicolectomy 2017 H/o Vit B12 def. Seizure disorder Paroxysmal Afib not on anticoagulation Congestive Heart Failure, CAD s/p stents, Left carotid endarterectomy, GERD COMPLICATIONS/CHIEF COMPLAINT: Acute Uti, Altered Mental Satus. 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 He was found to have Ecoli UTI. It was felt he had metabolic encephalopathy with progressing dementia causing the alteration in his mental status. Metabolic encephalopathy with progression of dementia Initially due to UTI then due to sedating medications. Patient appears to have improved, Now at baseline as per . Alprazolam and respiridal reduced. rozirem stopped. Mild Hypernatremia due to free water deficit due to reduced oral intake and dehydration Offer oral free water at least about 1000 cc / day Coccygeal decubitii x 2 stage 2 present on admission Oral thrush continue nystatin. Indwelling solis catheter-related UTI- treated. pt has chronic solis catheter, UC positive for Escherichia coli from 04/23/21 was treated with cipro followed by nitrofurantoin. However there was a rise in WBC inspite of the above. On 05/03/21 solis was changed an new UA sent , UC with only 30K CFu of ecoli and 30K CFU of yeast. dced meropenem. Thrombocytopenia Chronic refractory ITP received multiple line treatments. Also has pseudothrombocytopenia. EDTA free tube for platelet counts Currently on Nplate weekly, Had Nplate on 6/13/21 Received IVIG on 04/25/21 and now on prednisone 50 mg received 1 unit of platelet transfusions on 04/26/2021. Continue prednisone . Reduced dose by 10 mg every week till completely off it as long as platelet counts remain above [address] K[address] Follow up with Dr Quiroz. Dementia. Alprazolam, and risperidone dosages reduced as causing too much somnolence. Patient tends to sleep late into the morning. More awake and responsive when is here in the afternoons. Rest of the day mostly sleeps. BPH with chronic urinary retention Continue chronic Solis catheter. Type 2 diabetes mellitus. Continue sliding scale insulin, levemir Seizure disorder. Keppra 250 mg every day and 500 mg every night. Paroxysmal atrial fibrillation. Patient is currently not on anticoagulation because he has thrombocytopenia. Continue bisoprolol fumarate 10 mg home dose Deconditioning. To Sub acute rehab H/O CHF He may be getting a little intravascularly depleted with elevated WBC, elevated Na lasix stopped as not adequete oral intake. GI prophylaxis: pantoprazole History of stage I [id number] adenocarcinoma of the ascending colon ( hepatic flexure) Moderately differentiated adenocarcinoma with mucinous features Residual villous adenoma near distal resection margin. status post right hemicolectomy Dr. Carvalho 2018 History of B12 deficiency used to be on monthly B12 shot Last Vit B12 was 340 on 04/20/21 restart as needed. DISCHARGE MEDICATIONS: Please see below. ALLERGIES: Please see below. PHYSICAL EXAMINATION ON DISCHARGE: VITAL SIGNS: Please see below. General Exam: Positive: Alert, Cooperative, No Acute Distress Eye Exam: Positive: PERRLA; Negative: Sclera icteric ENT Exam: Positive: Atraumatic, Mucous membr. moist/pink Neck Exam: Positive: Supple; Negative: Lymphadenopathy Chest Exam: Positive: Clear to auscultation, Diminished Heart Exam: Positive: Irregular Rhythm, Normal S1, Normal S2, Murmurs (there is a 3/6 systolic murmur at the cardiac base) Abdomen Exam: Positive: Normal bowel sounds, Soft; Negative: Tenderness Extremity Exam: Positive: Other (some changes of chronic stasis dermatitis); Negative: Edema Neuro Exam: Negative: Normal Speech (he answers simple yes/no questions, short sentences.but can't really engage in conversation or answer orientation questions more than that) Psych Exam: Negative: Mental status NL, Memory Intact LABORATORY DATA: Please see below. ACTIVITY: [As tolerated]. DIET: Pureed DISPOSITION: [facility] Keep Home. DISCHARGE INSTRUCTIONS: Follow up with Dr Quiroz in 1 to 2 weeks DISCHARGE CONDITION: [Stable]. TIME SPENT ON DISCHARGE: 35 minutes. Vital Signs/I&Os Vital Signs Date Time Temp Pulse Resp B/P (MAP) Pulse Ox O2 Delivery O2 Flow Rate FiO2 05/11/21 09:48 64 127/63 05/11/21 06:00 98.0 18 94 05/10/21 06:00 Room Air I&O- Last 24 Hours up to 6 AM 05/11/21 06:00 Intake Total 1330 ml Output Total 950 ml Balance 380 ml Laboratory Data Labs 24H Laboratory Tests 2 05/10/21 16:38: Bedside Glucose (Misc Panel) 308H 05/10/21 21:44: Bedside Glucose (Misc Panel) 160H 05/11/21 06:14: Bedside Glucose (Misc Panel) 85 05/11/21 11:11: Bedside Glucose (Misc Panel) 83 FSBS Laboratory Tests Test 05/10/21 16:38 05/10/21 21:44 05/11/21 06:14 05/11/21 11:11 Range/Units Bedside Glucose (Misc Panel) 308 160 85 83 83-110 MG/DL Microbiology Microbiology 05/02/21 Urine Culture - Final, Complete Escherichia Coli Yeast Like Organism Discharge Medications Scheduled Bisoprolol Fumarate (Bisoprolol Fumarate) 10 Mg Tablet, 10 MG PO DAILY, (Reported) Cetirizine HCl (Cetirizine HCl) 10 Mg Tablet, 10 MG PO DAILY, (Reported) Folic Acid (Folic Acid) 1 Mg Tablet, 1 MG PO DAILY, (Reported) Insulin Glargine,Hum.rec.anlog (Lantus Solostar) 100 Unit/1 Ml Insuln.pen, 15 UNITS SC DAILY Levetiracetam (Levetiracetam) 250 Mg Tablet, 500 MG PO QHS, (Reported) Levetiracetam (Levetiracetam) 250 Mg Tablet, 250 MG PO QAM, (Reported) Magnesium Chloride (Mag64) 64 Mg Tablet.dr, 64 MG PO DAILY, (Reported) Melatonin (Melatonin) 10 Mg Capsule, 10 MG PO QHS, (Reported) Nystatin (Nystatin Powder) 15 Gm Powder, 1 APLCT TOP BID, (Reported) GROIN Nystatin (Nystatin Oral Susp) 100,000 Unit/1 Ml Oral.susp, 5 ML SS TID Pantoprazole Sodium (Pantoprazole Sodium) 40 Mg Tablet.dr, 40 MG PO DAILY, (Reported) Potassium Chloride (Potassium Chloride) 10 Meq Capsule.er, 10 MEQ PO QHS, (Reported) Prednisone (Prednisone) 20 Mg Tablet, 40 MG PO DAILY Decrease by 10 mg Every week. Dose reduced from 50 mg to 40 mg to started on 05/12/21 Risperidone (Risperidone) 1 Mg Tablet, 1 MG PO QHS Romiplostim (Nplate) 500 Mcg Vial, 492 MCG SC Fr@0900 Scheduled PRN Alprazolam (Alprazolam) 0.25 Mg Tablet, 0.25 MG PO QHSP PRN for ANXIETY/AGITATION Diclofenac Sodium (Voltaren) 100 Gm Gel..gram., 1 GRAM TOP QID PRN for PAIN, (Reported) APPLY TO RIGHT SHOULDER Docusate Sodium (Stool Softener) 100 Mg Capsule, 100 MG PO BID PRN for CONSTIPATION, (Reported) Furosemide (Furosemide) 20 Mg Tablet, 20 MG PO DAILY PRN for EDEMA, (Reported) Hydrocodone/Acetaminophen (Hydrocodone-Acetamin 5-325 mg) 1 Each Tablet, 1 TAB PO QID PRN for PAIN Allergies Coded Allergies: cephalexin (Verified Allergy, Severe, made his face peel, 11/04/20) procaine (Verified Allergy, Severe, difficulty breathing, 02/04/20) Penicillins (Verified Allergy, Intermediate, swelling, 02/04/20) SPARKLE WALKER MD May 11, 2021 15:08
== END 2021-05-11 13:19 | DRG 698 ==
LOC: M ED 15:30 → M ED INP 20:37 → ENRESERV 23:12 → M MSPAV 23:51 → OBSVTOIN 04-26 09:53
PROVIDERS: ADMIT Family Medicine; ATTEND Internal Medicine Nephrology
DX: T83.511A Infection and inflammatory reaction due to indwelling urethral catheter, initial encounter (principal); G93.41 Metabolic encephalopathy; D69.3 Immune thrombocytopenic purpura; E87.2 Acidosis; I50.32 Chronic diastolic (congestive) heart failure; F01.51 Vascular dementia, unspecified severity, with behavioral disturbance; B37.0 Candidal stomatitis; N39.0 Urinary tract infection, site not specified; R41.82 Altered mental status, unspecified; E11.65 Type 2 diabetes mellitus with hyperglycemia; I25.10 Atherosclerotic heart disease of native coronary artery without angina pectoris; Z95.5 Presence of coronary angioplasty implant and graft; F17.210 Nicotine dependence, cigarettes, uncomplicated; K21.9 Gastro-esophageal reflux disease without esophagitis; Z79.899 Other long term (current) drug therapy; Z79.4 Long term (current) use of insulin; Z88.0 Allergy status to penicillin; Z88.1 Allergy status to other antibiotic agents; Z88.8 Allergy status to other drugs, medicaments and biological substances; Z20.822 Contact with and (suspected) exposure to COVID-19; Z66 Do not resuscitate; E83.42 Hypomagnesemia; R33.9 Retention of urine, unspecified; E86.0 Dehydration; I11.0 Hypertensive heart disease with heart failure; K59.09 Other constipation; G47.00 Insomnia, unspecified; I48.0 Paroxysmal atrial fibrillation; N40.1 Benign prostatic hyperplasia with lower urinary tract symptoms; G40.909 Epilepsy, unspecified, not intractable, without status epilepticus; R26.89 Other abnormalities of gait and mobility; B96.20 Unspecified Escherichia coli [E. coli] as the cause of diseases classified elsewhere; E87.8 Other disorders of electrolyte and fluid balance, not elsewhere classified; L89.159 Pressure ulcer of sacral region, unspecified stage

== ENCOUNTER → 2021-04-23 | Outpatient (REF) | payer MEDICARE ==
[~2021-04-23] MED LIST changes: +FOLI1TAB11 PO; +NITR100C2 PO; +NYST10006 TOP; +NYST1POW9 TOP; +PANT-23 PO; +PERCOCET PO; +POTA10CA32 PO; +RISP-8 PO; +SUCR1TA PO
== END ==
LOC: M LAB REF 14:41
PROVIDERS: ATTEND Family Medicine
DX: N30.00 Acute cystitis without hematuria (principal); Z86.79 Personal history of other diseases of the circulatory system

== ENCOUNTER → 2021-05-14 | Outpatient (REF) ==
[~2021-05-14] MED LIST changes: +CLAR10CA3 PO; +DICL1GEL3 TOP; +NITR100C2 PO; +NPLA500I SC; +NYST1POW9 TOP; +NYST50SS SS
[2021-05-14 10:40] LABS: BASO % 0.2 % (0.0-1.0); EOS % 0.2 % (0.0-3.0); HEMATOCRIT 37.7 % (42.0-52.0); HEMOGLOBIN 11.8 g/dl (13.5-17.5); LYMPH # 1.4 10^3/uL (1.5-5.0); LYMPH % 14.8 % (24.0-44.0); MEAN CORPUSCULAR HEMOGLOBIN 28.4 pg (27.0-33.0); MEAN CORPUSCULAR HGB CONC 31.3 g/dl (32.0-36.5); MEAN CORPUSCULAR VOLUME 90.6 fl (80.0-96.0); MONO # 0.5 10^3/uL (0.0-0.8); MONO % 5.2 % (2.0-8.0); NEUTROPHILS # 7.5 10^3/uL (1.5-8.5); NEUTROPHILS % 78.3 % (36.0-66.0); PLATELET COUNT, AUTOMATED 166 10^3/uL (150-450); RED BLOOD COUNT 4.16 10^6/uL (4.30-6.10); WHITE BLOOD COUNT 9.5 10^3/uL (4.0-10.0)
[2021-05-14 11:08] LABS: BLOOD UREA NITROGEN 22 MG/DL (7-18); CALCIUM LEVEL 9.1 MG/DL (8.8-10.2); CARBON DIOXIDE LEVEL 31 MEQ/L (21-32); CHLORIDE LEVEL 105 MEQ/L (98-107); CREATININE FOR GFR 1.07 MG/DL (0.70-1.30); GLOMERULAR FILTRATION RATE > 60.0 (>35); GLUCOSE, FASTING 212 MG/DL (70-100); MAGNESIUM LEVEL 1.8 MG/DL (1.8-2.4); POTASSIUM SERUM 3.6 MEQ/L (3.5-5.1); SODIUM LEVEL 141 MEQ/L (136-145)
== END ==
LOC: SKLAB2 10:01
PROVIDERS: ATTEND Internal Medicine Nephrology
DX: I50.9 Heart failure, unspecified (principal); E11.9 Type 2 diabetes mellitus without complications

== ENCOUNTER → 2021-05-17 | Outpatient (REF) ==
[2021-05-17 11:44] LABS: APPEARANCE, URINE CLOUDY (CLEAR); BACTERIA, URINE AUTO 3+ (NEGATIVE); BILIRUBIN, URINE AUTO NEGATIVE (NEGATIVE); BLOOD, URINE BLOOD NEGATIVE (NEGATIVE); COLOR, URINE YELLOW (YELLOW); GLUCOSE, URINE (UA) AUTO 1+ mg/dL (NEGATIVE); KETONE, URINE AUTO NEGATIVE (NEGATIVE); LEUKOCYTE ESTERASE, URINE AUTO 3+ (NEGATIVE); MUCUS, URINE SMALL (NEGATIVE); NITRITE, URINE AUTO NEGATIVE (NEGATIVE); PROTEIN, URINE AUTO 1+ mg/dL (NEGATIVE); RBC, URINE AUTO 23 /HPF (0-3); SPECIFIC GRAVITY URINE AUTO 1.019 (1.002-1.035); SQUAMOUS EPITHELIAL CELL UR AU 0 /HPF (0-6); UROBILINOGEN, URINE AUTO 0.2 mg/dL (0.0-2.0); WBC, URINE AUTO TNTC /HPF (0-3)
== END ==
LOC: SKLAB2 11:22
PROVIDERS: ATTEND Internal Medicine Nephrology
DX: R39.9 Unspecified symptoms and signs involving the genitourinary system (principal)

== ENCOUNTER → 2021-05-20 | Outpatient (REF) ==
[2021-05-20 09:51] LABS: BASO % 0.2 % (0.0-1.0); EOS % 0.4 % (0.0-3.0); HEMATOCRIT 36.7 % (42.0-52.0); HEMOGLOBIN 11.2 g/dl (13.5-17.5); LYMPH # 1.5 10^3/uL (1.5-5.0); LYMPH % 17.2 % (24.0-44.0); MEAN CORPUSCULAR HEMOGLOBIN 27.5 pg (27.0-33.0); MEAN CORPUSCULAR HGB CONC 30.5 g/dl (32.0-36.5); MEAN CORPUSCULAR VOLUME 90.2 fl (80.0-96.0); MONO # 0.6 10^3/uL (0.0-0.8); MONO % 7.2 % (2.0-8.0); NEUTROPHILS # 6.5 10^3/uL (1.5-8.5); NEUTROPHILS % 72.6 % (36.0-66.0); RED BLOOD COUNT 4.07 10^6/uL (4.30-6.10); WHITE BLOOD COUNT 8.9 10^3/uL (4.0-10.0)
[2021-05-20 10:19] LABS: BLOOD UREA NITROGEN 17 MG/DL (7-18); CALCIUM LEVEL 9.5 MG/DL (8.8-10.2); CARBON DIOXIDE LEVEL 30 MEQ/L (21-32); CHLORIDE LEVEL 104 MEQ/L (98-107); CREATININE FOR GFR 1.03 MG/DL (0.70-1.30); GLOMERULAR FILTRATION RATE > 60.0 (>35); GLUCOSE, FASTING 129 MG/DL (70-100); MAGNESIUM LEVEL 1.7 MG/DL (1.8-2.4); POTASSIUM SERUM 3.3 MEQ/L (3.5-5.1); SODIUM LEVEL 142 MEQ/L (136-145)
[2021-05-20 10:34] LABS: PLATELET COUNT, AUTOMATED 81 10^3/uL (150-450)
== END ==
LOC: SKLAB2 10:02
PROVIDERS: ATTEND Internal Medicine Nephrology
DX: I50.9 Heart failure, unspecified (principal)

== ENCOUNTER → 2021-05-27 | Outpatient (REF) ==
[2021-05-27 11:30] LABS: BASO % 0.3 % (0.0-1.0); EOS # 0.1 10^3/uL (0.0-0.5); EOS % 0.6 % (0.0-3.0); HEMATOCRIT 39.4 % (42.0-52.0); HEMOGLOBIN 12.1 g/dl (13.5-17.5); LYMPH # 1.8 10^3/uL (1.5-5.0); LYMPH % 12.7 % (24.0-44.0); MEAN CORPUSCULAR HEMOGLOBIN 27.5 pg (27.0-33.0); MEAN CORPUSCULAR HGB CONC 30.7 g/dl (32.0-36.5); MEAN CORPUSCULAR VOLUME 89.5 fl (80.0-96.0); MONO # 0.7 10^3/uL (0.0-0.8); MONO % 4.7 % (2.0-8.0); NEUTROPHILS # 11.4 10^3/uL (1.5-8.5); NEUTROPHILS % 79.2 % (36.0-66.0); PLATELET COUNT, AUTOMATED 138 10^3/uL (150-450); WHITE BLOOD COUNT 14.4 10^3/uL (4.0-10.0)
[2021-05-27 11:58] LABS: BLOOD UREA NITROGEN 21 MG/DL (7-18); CALCIUM LEVEL 9.5 MG/DL (8.8-10.2); CARBON DIOXIDE LEVEL 33 MEQ/L (21-32); CHLORIDE LEVEL 102 MEQ/L (98-107); CREATININE FOR GFR 1.14 MG/DL (0.70-1.30); GLOMERULAR FILTRATION RATE > 60.0 (>35); GLUCOSE, FASTING 200 MG/DL (70-100); POTASSIUM SERUM 4.1 MEQ/L (3.5-5.1); SODIUM LEVEL 138 MEQ/L (136-145)
--- NOTE | 2021-05-27 15:54 | REP ---
INDICATION: leukocytosis.. COMPARISON: None. TECHNIQUE: Single portable AP view of the chest was performed. FINDINGS: There is no acute infiltrate or pulmonary edema. Lungs are clear. The heart is not significantly enlarged. The mediastinal silhouette is unchanged, with some calcification of the thoracic aorta. Multiple sternal wires are present. The visualized osseous structures are intact. IMPRESSION: No acute pulmonary disease. <Electronically signed by Silvio Etienne > 05/27/21 [id number]
== END ==
LOC: SKLAB2 08:23
PROVIDERS: ATTEND Family Medicine
DX: D72.829 Elevated white blood cell count, unspecified (principal); I70.0 Atherosclerosis of aorta

== ENCOUNTER → 2021-05-28 | Outpatient (REF) ==
[2021-05-28 10:02] LABS: HEMATOCRIT 40.1 % (42.0-52.0); HEMOGLOBIN 12.2 g/dl (13.5-17.5); MEAN CORPUSCULAR HGB CONC 30.4 g/dl (32.0-36.5); MEAN CORPUSCULAR VOLUME 88.7 fl (80.0-96.0); PLATELET COUNT, AUTOMATED 221 10^3/uL (150-450); RED BLOOD COUNT 4.52 10^6/uL (4.30-6.10)
[2021-05-28 10:23] LABS: BLOOD UREA NITROGEN 21 MG/DL (7-18); CALCIUM LEVEL 9.3 MG/DL (8.8-10.2); CARBON DIOXIDE LEVEL 31 MEQ/L (21-32); CHLORIDE LEVEL 104 MEQ/L (98-107); CREATININE FOR GFR 1.07 MG/DL (0.70-1.30); GLOMERULAR FILTRATION RATE > 60.0 (>35); GLUCOSE, FASTING 198 MG/DL (70-100); SODIUM LEVEL 139 MEQ/L (136-145)
== END ==
LOC: SKLAB2 16:23
PROVIDERS: ATTEND Family Medicine
DX: N39.0 Urinary tract infection, site not specified (principal); D72.829 Elevated white blood cell count, unspecified

== ENCOUNTER → 2021-05-29 | Outpatient (REF) ==
[2021-05-29 09:28] LABS: BASO % 0.2 % (0.0-1.0); EOS # 0.1 10^3/uL (0.0-0.5); EOS % 0.7 % (0.0-3.0); HEMATOCRIT 38.1 % (42.0-52.0); HEMOGLOBIN 11.8 g/dl (13.5-17.5); LYMPH # 3.5 10^3/uL (1.5-5.0); LYMPH % 23.6 % (24.0-44.0); MEAN CORPUSCULAR HEMOGLOBIN 27.5 pg (27.0-33.0); MEAN CORPUSCULAR VOLUME 88.8 fl (80.0-96.0); MONO # 0.8 10^3/uL (0.0-0.8); MONO % 5.2 % (2.0-8.0); PLATELET COUNT, AUTOMATED 230 10^3/uL (150-450); RED BLOOD COUNT 4.29 10^6/uL (4.30-6.10); WHITE BLOOD COUNT 14.7 10^3/uL (4.0-10.0)
== END ==
LOC: SKLAB2 16:23
PROVIDERS: ATTEND Family Medicine
DX: N39.0 Urinary tract infection, site not specified (principal)

== ENCOUNTER → 2021-05-31 | Outpatient (REF) ==
[2021-05-31 13:33] LABS: BASO % 0.2 % (0.0-1.0); EOS % 0.2 % (0.0-3.0); HEMATOCRIT 37.1 % (42.0-52.0); HEMOGLOBIN 11.4 g/dl (13.5-17.5); LYMPH # 0.9 10^3/uL (1.5-5.0); LYMPH % 8.3 % (24.0-44.0); MEAN CORPUSCULAR HEMOGLOBIN 27.1 pg (27.0-33.0); MEAN CORPUSCULAR HGB CONC 30.7 g/dl (32.0-36.5); MEAN CORPUSCULAR VOLUME 88.3 fl (80.0-96.0); MONO # 0.5 10^3/uL (0.0-0.8); MONO % 4.2 % (2.0-8.0); NEUTROPHILS # 9.6 10^3/uL (1.5-8.5); PLATELET COUNT, AUTOMATED 185 10^3/uL (150-450); WHITE BLOOD COUNT 11.1 10^3/uL (4.0-10.0)
[2021-05-31 13:58] LABS: ALBUMIN 2.8 GM/DL (3.2-5.2); CALCIUM LEVEL 9.3 MG/DL (8.8-10.2); CREATININE FOR GFR 1.42 MG/DL (0.70-1.30); GLOMERULAR FILTRATION RATE 50.9 (>35); PHOSPHORUS LEVEL 3.1 MG/DL (2.5-4.9); POTASSIUM SERUM 4.8 MEQ/L (3.5-5.1)
== END ==
LOC: SKLAB2 12:16
PROVIDERS: ATTEND Family Medicine
DX: N39.0 Urinary tract infection, site not specified (principal)

== ENCOUNTER → 2021-06-02 | Outpatient (CLI) | payer MEDICARE ==
--- NOTE | 2021-06-02 16:27 | REP ---
INDICATION: DYSPHAGIA- WAITING IN THE CT AREA. COMPARISON: None. TECHNIQUE: The procedure was performed by Meghan Hernandez [facility], under the direct supervision of Dr. Delacruz. The procedure was performed with Liv Rabago and Letitia Mason from speech pathology present. 5 ml aliquots of thin, nectar thick, pudding, mixed fruit, soft food, hard food and pill consistency barium was administered. FINDINGS: Penetration was visualized with both thin and nectar thick consistency barium. The detailed report of this examination will be provided by speech pathology. IMPRESSION: Penetration was visualized during the exam, a detailed report will be provided by speech pathology. 3.2 minutes of fluoroscopy time was utilized for this procedure. Some fluoroscopic images are performed with last image hold technology. These images require no additional radiation <Electronically signed by Meghan Hernandez > 06/02/21 [id number] <Electronically signed by Aditya Delacruz > 06/02/21 [id number]
== END ==
LOC: M ST 14:23
PROVIDERS: ATTEND Nurse Practitioner Family
DX: R13.12 Dysphagia, oropharyngeal phase (principal)

== ENCOUNTER → 2021-06-04 | Outpatient (REF) | LOC: SKLAB2 12:20 | PROVIDERS: ATTEND Family Medicine | DX: N39.0 Urinary tract infection, site not specified (principal) ==

== ENCOUNTER → 2021-06-08 | Outpatient (REF) | payer MEDICARE ==
[2021-06-08 10:55] LABS: BLOOD UREA NITROGEN 14 MG/DL (7-18); CALCIUM LEVEL 8.7 MG/DL (8.8-10.2); CARBON DIOXIDE LEVEL 26 MEQ/L (21-32); CHLORIDE LEVEL 110 MEQ/L (98-107); CREATININE FOR GFR 0.94 MG/DL (0.70-1.30); GLOMERULAR FILTRATION RATE > 60.0 (>35); GLUCOSE, FASTING 231 MG/DL (70-100); POTASSIUM SERUM 3.7 MEQ/L (3.5-5.1); SODIUM LEVEL 144 MEQ/L (136-145)
== END ==
LOC: SKLAB2 12:24
PROVIDERS: ATTEND Family Medicine
DX: N18.9 Chronic kidney disease, unspecified (principal)

== ENCOUNTER → 2021-06-14 | Outpatient (REF) | payer MEDICARE ==
[~2021-06-14] MED LIST changes: +ACET-910 PO; +ALBU83IN NEB; +ANTI2TAB16 PO; +BACITAB PO; +CALCI50TA PO; +DULC10SU2 PR; +ENEMENE PR; +ERGO500029 PO; +INSU100I28 SC; +JUVEPOW4 PO; +LINE1TAB PO; +LORA-674 PO; +MAGN500T6 PO; +MAGN50TA PO; +MILKSUS3 PO; +POTA20TA6 PO; +QUET1TAB17 PO; -QUET25TA3 PO; +VITAD1000T PO; +[UNRECOGNIZED DRUG - CODE] PO; +[UNRECOGNIZED DRUG - CODE] PO
[2021-06-14 09:15] LABS: BLOOD UREA NITROGEN 18 MG/DL (7-18); CARBON DIOXIDE LEVEL 28 MEQ/L (21-32); CHLORIDE LEVEL 107 MEQ/L (98-107); CREATININE FOR GFR 1.16 MG/DL (0.70-1.30); GLOMERULAR FILTRATION RATE > 60.0 (>35); GLUCOSE, FASTING 117 MG/DL (70-100); POTASSIUM SERUM 3.7 MEQ/L (3.5-5.1); SODIUM LEVEL 144 MEQ/L (136-145)
--- NOTE | 2021-06-14 16:39 | REP ---
INDICATION: CONGESTION IN LUNGS. COMPARISON: 05/27/2021 TECHNIQUE: Portable FINDINGS: Possible increased interstitial markings in the left retrocardiac region seen in limited fashion on this portable exam with the patient tilted and rotated to the left. The cardiomediastinal silhouette is unchanged. Right lung is unchanged. The osseous structures are unchanged IMPRESSION: Possible developing left lower lobe pneumonia. <Electronically signed by Shaheed Kline > 06/14/21 [id number]
== END ==
LOC: SKLAB2 12:25
PROVIDERS: ATTEND Family Medicine
DX: R60.9 Edema, unspecified (principal); R09.89 Other specified symptoms and signs involving the circulatory and respiratory systems

== ENCOUNTER → 2021-06-15 | Outpatient (REF) | payer MEDICARE | LOC: SKLAB2 08:00 | PROVIDERS: ATTEND Family Medicine | DX: R19.5 Other fecal abnormalities (principal) ==

== ENCOUNTER → 2021-06-16 | Outpatient (REF) | payer MEDICARE ==
[~2021-06-16] MED LIST changes: -ACET-910 PO; -ALBU83IN NEB; -ANTI2TAB16 PO; -BACITAB PO; -CALCI50TA PO; -DULC10SU2 PR; -ENEMENE PR; -ERGO500029 PO; -INSU100I28 SC; -JUVEPOW4 PO; -LINE1TAB PO; -LORA-674 PO; -MAGN500T6 PO; -MAGN50TA PO; -MILKSUS3 PO; -POTA20TA6 PO; -QUET1TAB17 PO; +QUET25TA3 PO; -VITAD1000T PO; -[UNRECOGNIZED DRUG - CODE] PO; -[UNRECOGNIZED DRUG - CODE] PO
[2021-06-16 07:20] LABS: BASO # 0.1 10^3/uL (0.0-0.2); BASO % 0.7 % (0.0-1.0); EOS # 0.1 10^3/uL (0.0-0.5); EOS % 1.6 % (0.0-3.0); HEMATOCRIT 28.9 % (42.0-52.0); HEMOGLOBIN 8.8 g/dl (13.5-17.5); LYMPH # 1.7 10^3/uL (1.5-5.0); LYMPH % 23.7 % (24.0-44.0); MEAN CORPUSCULAR HGB CONC 30.4 g/dl (32.0-36.5); MEAN CORPUSCULAR VOLUME 88.7 fl (80.0-96.0); MONO # 0.5 10^3/uL (0.0-0.8); MONO % 7.6 % (2.0-8.0); NEUTROPHILS # 4.6 10^3/uL (1.5-8.5); NEUTROPHILS % 65.4 % (36.0-66.0); PLATELET COUNT, AUTOMATED 114 10^3/uL (150-450); RED BLOOD COUNT 3.26 10^6/uL (4.30-6.10)
[2021-06-16 07:47] LABS: ALBUMIN 2.4 GM/DL (3.2-5.2); ALT/SGPT 20 U/L (12-78); BILIRUBIN,TOTAL 0.3 MG/DL (0.2-1.0); BLOOD UREA NITROGEN 17 MG/DL (7-18); CALCIUM LEVEL 6.4 MG/DL (8.8-10.2); CARBON DIOXIDE LEVEL 26 MEQ/L (21-32); CHLORIDE LEVEL 112 MEQ/L (98-107); CREATININE FOR GFR 1.11 MG/DL (0.70-1.30); GLOMERULAR FILTRATION RATE > 60.0 (>35); GLUCOSE, FASTING 82 MG/DL (70-100); POTASSIUM SERUM 3.8 MEQ/L (3.5-5.1); SODIUM LEVEL 146 MEQ/L (136-145); TOTAL PROTEIN 5.2 GM/DL (6.4-8.2)
== END ==
LOC: SKLAB2 12:26
PROVIDERS: ATTEND Family Medicine
DX: R19.5 Other fecal abnormalities (principal)

== ENCOUNTER → 2021-06-17 | Outpatient (REF) | payer MEDICARE ==
[2021-06-17 11:34] LABS: BLOOD UREA NITROGEN 14 MG/DL (7-18); CALCIUM LEVEL 6.7 MG/DL (8.8-10.2); CARBON DIOXIDE LEVEL 27 MEQ/L (21-32); CHLORIDE LEVEL 114 MEQ/L (98-107); CREATININE FOR GFR 1.16 MG/DL (0.70-1.30); GLOMERULAR FILTRATION RATE > 60.0 (>35); GLUCOSE, FASTING 97 MG/DL (70-100); POTASSIUM SERUM 3.7 MEQ/L (3.5-5.1); SODIUM LEVEL 148 MEQ/L (136-145)
== END ==
LOC: SKLAB2 12:26
PROVIDERS: ATTEND Family Medicine
DX: J18.9 Pneumonia, unspecified organism (principal)

== ENCOUNTER → 2021-06-18 | Outpatient (REF) | payer MEDICARE ==
--- NOTE | 2021-06-18 09:59 | REP ---
INDICATION: Rule out Pneumonia. COMPARISON: Comparison chest x-ray June 14, 2021 and May 27, 2021.. TECHNIQUE: Sitting portable AP chest radiograph. Two views presented. FINDINGS: There increased interstitial lung markings overlying the left heart and in the left perihilar region consistent with pneumonitis. No other infiltrate is observed. Pleural angles are sharp. Prior sternotomy wires are seen. Borderline heart size. Pulmonary vasculature is not increased. IMPRESSION: Subtle left perihilar infiltrate consistent with pneumonitis. <Electronically signed by Aditya Delacruz > 06/18/21 [id number]
== END ==
LOC: SKLAB2 12:27
PROVIDERS: ATTEND Family Medicine
DX: J18.9 Pneumonia, unspecified organism (principal)

== ENCOUNTER 2021-06-22 10:57 | Inpatient (IN) | payer MEDICARE ==
[~2021-06-22] VITALS: Ht 170.2 cm; Wt 87.3 kg
[~2021-06-22 10:57] MED LIST changes: -ACET-910 PO; -ALBU83IN NEB; -ANTI2TAB16 PO; -BACITAB PO; -CALCI50TA PO; -DULC10SU2 PR; -ENEMENE PR; -ERGO500029 PO; -INSU100I28 SC; -JUVEPOW4 PO; -LINE1TAB PO; -LORA-674 PO; -MAGN500T6 PO; -MAGN50TA PO; -MILKSUS3 PO; -POTA-151 PO; -RISP0.5T62 PO; -RISP2TAB PO; -VITAD1000T PO
[2021-06-22] MEDS ORDERED: DULC10SU2 PR (11:39)
[2021-06-22] MEDS ORDERED: BACITAB PO (11:39)
[2021-06-22] MEDS ORDERED: ENEMENE PR (11:39)
[2021-06-22] MEDS ORDERED: RISP2TAB PO (11:39)
[2021-06-22] MEDS ORDERED: ACET-910 PO (11:39)
[2021-06-22] MEDS ORDERED: LORA-674 PO (11:39)
[2021-06-22] MEDS ORDERED: HYDR-3713 PO (11:39)
[2021-06-22] MEDS ORDERED: LINE1TAB PO (11:39)
[2021-06-22] MEDS ORDERED: ANTI2TAB16 PO (11:39)
[2021-06-22] MEDS ORDERED: ALPR0.25 PO (11:39)
[2021-06-22] MEDS ORDERED: MILKSUS3 PO (11:39)
[2021-06-22] MEDS ORDERED: HOME MED LIST COMPLETE! XX SCH (11:45)
[2021-06-22] MEDS ORDERED: NS 500 ML IV ONE (12:45)
[2021-06-22 14:38] LABS: BASO # 0.1 10^3/uL (0.0-0.2); BASO % 0.6 % (0.0-1.0); EOS # 0.1 10^3/uL (0.0-0.5); EOS % 1.5 % (0.0-3.0); HEMATOCRIT 31.3 % (42.0-52.0); HEMOGLOBIN 9.7 g/dl (13.5-17.5); LYMPH # 1.8 10^3/uL (1.5-5.0); LYMPH % 20.6 % (24.0-44.0); MEAN CORPUSCULAR HEMOGLOBIN 26.8 pg (27.0-33.0); MEAN CORPUSCULAR VOLUME 86.5 fl (80.0-96.0); MONO # 0.7 10^3/uL (0.0-0.8); MONO % 7.6 % (2.0-8.0); NEUTROPHILS % 68.5 % (36.0-66.0); PLATELET COUNT, AUTOMATED 145 10^3/uL (150-450); RED BLOOD COUNT 3.62 10^6/uL (4.30-6.10); WHITE BLOOD COUNT 8.8 10^3/uL (4.0-10.0)
[2021-06-22 15:36] LABS: ALBUMIN 2.4 GM/DL (3.2-5.2); ALT/SGPT 29 U/L (12-78); BILIRUBIN,DIRECT 0.1 MG/DL (0.0-0.2); BILIRUBIN,TOTAL 0.4 MG/DL (0.2-1.0); BLOOD UREA NITROGEN 18 MG/DL (7-18); CALCIUM LEVEL 5.9 MG/DL (8.8-10.2); CARBON DIOXIDE LEVEL 24 MEQ/L (21-32); CHLORIDE LEVEL 110 MEQ/L (98-107); CK-MB VALUE MASS 7.5 NG/ML (<3.6); CPK CREATINE PHOSPHOKINASE 1889 U/L (39-308); CREATININE FOR GFR 1.04 MG/DL (0.70-1.30); GLOMERULAR FILTRATION RATE > 60.0 (>35); GLUCOSE, FASTING 81 MG/DL (70-100); LIPASE 63 U/L (73-393); NT-PRO BNP 1400 PG/ML (<450); POTASSIUM SERUM 3.7 MEQ/L (3.5-5.1); SODIUM LEVEL 146 MEQ/L (136-145); TOTAL PROTEIN 5.9 GM/DL (6.4-8.2); TROPONIN I < 0.02 NG/ML (< 0.10)
[2021-06-22] MEDS ORDERED: NS 1,000 ML IV SCH (16:00)
[2021-06-22] MEDS ORDERED: NORCO, ANEXSIA 5/325MG TABLET (HYDROcodone/ACETAMINOPHEN) PO PRN (17:00)
[2021-06-22] MEDS ORDERED: ACETAMINOPHEN TAB 650MG DOSE (2X325MG) PO PRN (17:00)
[2021-06-22] MEDS ORDERED: BISACODYL 10 MG SUPP PR PRN (17:00)
[2021-06-22] MEDS ORDERED: GLUCAGON INJ 1MG VIAL SC PRN (17:05)
[2021-06-22] MEDS ORDERED: DEXTROSE 50% 50 ML SYRINGE IV PRN (17:05)
[2021-06-22] MEDS ORDERED: GLUCOSE 4GM CHEW TABLET PO PRN (17:05)
[2021-06-22 17:26] LABS: RSV AMPLIFICATION NEGATIVE (NEGATIVE)
[2021-06-22] MEDS: HumaLOG INSULIN (NovoLOG) PER UNIT SC SCH ×2 (17:30→19:47)
[2021-06-22 19:10] VITALS: BP 135/73
[2021-06-22] MEDS ORDERED: CALCIUM GLUCONATE 1,000 MG in D5W MINI-BAG PLUS 100 ML IV ONE (20:00)
[2021-06-22] MEDS: levETIRAcetam 250MG TABLET (KEPPRA) PO SCH (20:44)
[2021-06-22] MEDS: LINEZOLID 600MG TABLET (ZYVOX) PO SCH (20:44)
[2021-06-22] MEDS: ALPRAZolam 0.25 MG TAB PO SCH (20:44)
[2021-06-22] MEDS: POTASSIUM CHLORIDE 10MEQ SR TABLET PO SCH (20:44)
[2021-06-22] MEDS: NS 1,000 ML IV SCH (21:00)
[2021-06-22] MEDS: LOPERAMIDE 2 MG CAPLET PO PRN (23:27)
[2021-06-23 06:00] VITALS: BP 132/61
[2021-06-23] MEDS: NS 1,000 ML IV SCH (06:08)
[2021-06-23 06:15] LABS: HEMATOCRIT 28.6 % (42.0-52.0); HEMOGLOBIN 8.9 g/dl (13.5-17.5); MEAN CORPUSCULAR HEMOGLOBIN 26.9 pg (27.0-33.0); MEAN CORPUSCULAR HGB CONC 31.1 g/dl (32.0-36.5); MEAN CORPUSCULAR VOLUME 86.4 fl (80.0-96.0); PLATELET COUNT, AUTOMATED 131 10^3/uL (150-450); RED BLOOD COUNT 3.31 10^6/uL (4.30-6.10); WHITE BLOOD COUNT 6.9 10^3/uL (4.0-10.0)
[2021-06-23] MEDS: HumaLOG INSULIN (NovoLOG) PER UNIT SC SCH ×4 (07:30→20:56)
[2021-06-23 08:12] LABS: ALBUMIN 2.1 GM/DL (3.2-5.2); ALT/SGPT 23 U/L (12-78); BILIRUBIN,TOTAL 0.3 MG/DL (0.2-1.0); BLOOD UREA NITROGEN 19 MG/DL (7-18); CALCIUM LEVEL 5.5 MG/DL (8.8-10.2); CARBON DIOXIDE LEVEL 23 MEQ/L (21-32); CHLORIDE LEVEL 117 MEQ/L (98-107); GLOMERULAR FILTRATION RATE > 60.0 (>35); GLUCOSE, FASTING 65 MG/DL (70-100); POTASSIUM SERUM 3.2 MEQ/L (3.5-5.1); PTH INTACT 17.5 PG/ML (18.5-88.0); SODIUM LEVEL 149 MEQ/L (136-145); TOTAL 25(OH) VITAMIN D 17.1 NG/ML (30.0-100.0); TOTAL PROTEIN 5.1 GM/DL (6.4-8.2)
[2021-06-23] MEDS: LINEZOLID 600MG TABLET (ZYVOX) PO SCH ×2 (09:03→20:56)
[2021-06-23] MEDS: PANTOPRAZOLE 40MG TAB (PROTONIX) PO SCH (09:03)
[2021-06-23] MEDS: FOLIC ACID 1 MG TAB PO SCH (09:03)
[2021-06-23] MEDS: LORATADINE 10 MG TAB PO SCH (09:03)
[2021-06-23] MEDS: levETIRAcetam 250MG TABLET (KEPPRA) PO SCH ×2 (09:03→20:57)
[2021-06-23] MEDS: bisoproloL fumarate 10 MG TAB PO SCH (09:04)
[2021-06-23] MEDS: ALPRAZolam 0.25 MG TAB PO SCH ×2 (09:09→20:57)
[2021-06-23 11:34] LABS: CPK CREATINE PHOSPHOKINASE 1513 U/L (39-308); MAGNESIUM LEVEL 0.4 MG/DL (1.8-2.4)
[2021-06-23] MEDS: MAG SULF 1GM/100ML (MAG RUN) 1 GM in IV 1 EA IV SCH ×3 (11:48→14:20)
[2021-06-23 14:00] VITALS: BP 131/58
[2021-06-23] MEDS: [UNRECOGNIZED DRUG - OTHER] IV SCH ×2 (15:32)
[2021-06-23] MEDS: D5 IV SCH ×2 (15:32)
[2021-06-23] MEDS: KCL IV SCH ×2 (15:32)
[2021-06-23] MEDS: CALCIUM GLUCONATE IV SCH ×2 (15:32)
[2021-06-23] MEDS: VITAMIN D 1,000 INTERNATIONAL UNITS TABLET PO SCH (17:24)
[2021-06-23 18:56] LABS: ALBUMIN 2.2 GM/DL (3.2-5.2); BLOOD UREA NITROGEN 18 MG/DL (7-18); CALCIUM LEVEL 5.8 MG/DL (8.8-10.2); CARBON DIOXIDE LEVEL 23 MEQ/L (21-32); CHLORIDE LEVEL 116 MEQ/L (98-107); CREATININE FOR GFR 1.08 MG/DL (0.70-1.30); GLOMERULAR FILTRATION RATE > 60.0 (>35); GLUCOSE, FASTING 148 MG/DL (70-100); PHOSPHORUS LEVEL 3.8 MG/DL (2.5-4.9); POTASSIUM SERUM 3.7 MEQ/L (3.5-5.1); SODIUM LEVEL 149 MEQ/L (136-145)
[2021-06-23] MEDS: OYSTER SHELL CALCIUM 500 MG TAB PO SCH (20:57)
[2021-06-23] MEDS: POTASSIUM CHLORIDE 10MEQ SR TABLET PO SCH (20:57)
[2021-06-23] MEDS: LOPERAMIDE 2 MG CAPLET PO PRN (21:03)
[2021-06-23 22:00] VITALS: BP 137/56
[2021-06-24] MEDS: D5 IV SCH ×6 (03:04→18:08)
[2021-06-24] MEDS: [UNRECOGNIZED DRUG - OTHER] IV SCH ×6 (03:04→18:08)
[2021-06-24] MEDS: KCL IV SCH ×6 (03:04→18:08)
[2021-06-24] MEDS: CALCIUM GLUCONATE IV SCH ×6 (03:04→18:08)
[2021-06-24 06:00] VITALS: BP 140/61
[2021-06-24 07:10] LABS: HEMATOCRIT 27.7 % (42.0-52.0); HEMOGLOBIN 8.5 g/dl (13.5-17.5); MEAN CORPUSCULAR HEMOGLOBIN 26.5 pg (27.0-33.0); MEAN CORPUSCULAR HGB CONC 30.7 g/dl (32.0-36.5); MEAN CORPUSCULAR VOLUME 86.3 fl (80.0-96.0); PLATELET COUNT, AUTOMATED 128 10^3/uL (150-450); RED BLOOD COUNT 3.21 10^6/uL (4.30-6.10)
[2021-06-24 07:40] LABS: BLOOD UREA NITROGEN 16 MG/DL (7-18); CARBON DIOXIDE LEVEL 22 MEQ/L (21-32); CHLORIDE LEVEL 117 MEQ/L (98-107); CREATININE FOR GFR 0.93 MG/DL (0.70-1.30); GLOMERULAR FILTRATION RATE > 60.0 (>35); GLUCOSE, FASTING 147 MG/DL (70-100); MAGNESIUM LEVEL 0.9 MG/DL (1.8-2.4); PHOSPHORUS LEVEL 2.9 MG/DL (2.5-4.9); POTASSIUM SERUM 3.4 MEQ/L (3.5-5.1); SODIUM LEVEL 148 MEQ/L (136-145)
[2021-06-24] MEDS: MAG SULF 1GM/100ML (MAG RUN) 1 GM in IV 1 EA IV SCH ×4 (07:58→11:33)
[2021-06-24] MEDS: HumaLOG INSULIN (NovoLOG) PER UNIT SC SCH ×4 (08:40→21:00)
[2021-06-24] MEDS: OYSTER SHELL CALCIUM 500 MG TAB PO SCH ×3 (12:48→21:29)
[2021-06-24] MEDS: ALPRAZolam 0.25 MG TAB PO SCH ×2 (12:56→21:29)
[2021-06-24] MEDS: levETIRAcetam 250MG TABLET (KEPPRA) PO SCH ×2 (12:58→21:29)
[2021-06-24] MEDS: FOLIC ACID 1 MG TAB PO SCH (12:58)
[2021-06-24] MEDS: PANTOPRAZOLE 40MG TAB (PROTONIX) PO SCH (12:58)
[2021-06-24] MEDS: LORATADINE 10 MG TAB PO SCH (12:59)
[2021-06-24] MEDS: LINEZOLID 600MG TABLET (ZYVOX) PO SCH ×2 (12:59→21:29)
[2021-06-24] MEDS: VITAMIN D 1,000 INTERNATIONAL UNITS TABLET PO SCH (12:59)
[2021-06-24 13:02] VITALS: BP 135/57
[2021-06-24] MEDS: bisoproloL fumarate 10 MG TAB PO SCH (13:02)
[2021-06-24 14:00] VITALS: BP 115/56
[2021-06-24] MEDS: POTASSIUM CHLORIDE 10MEQ SR TABLET PO SCH (21:29)
[2021-06-24 22:00] VITALS: BP 136/56
[2021-06-25 06:00] VITALS: BP 129/51
[2021-06-25 07:05] LABS: HEMATOCRIT 27.2 % (42.0-52.0); HEMOGLOBIN 8.3 g/dl (13.5-17.5); MEAN CORPUSCULAR HEMOGLOBIN 26.7 pg (27.0-33.0); MEAN CORPUSCULAR HGB CONC 30.5 g/dl (32.0-36.5); MEAN CORPUSCULAR VOLUME 87.5 fl (80.0-96.0); PLATELET COUNT, AUTOMATED 100 10^3/uL (150-450); RED BLOOD COUNT 3.11 10^6/uL (4.30-6.10); WHITE BLOOD COUNT 6.6 10^3/uL (4.0-10.0)
[2021-06-25 07:11] LABS: BLOOD UREA NITROGEN 11 MG/DL (7-18); CALCIUM LEVEL 7.7 MG/DL (8.8-10.2); CARBON DIOXIDE LEVEL 21 MEQ/L (21-32); CHLORIDE LEVEL 117 MEQ/L (98-107); CREATININE FOR GFR 0.76 MG/DL (0.70-1.30); GLOMERULAR FILTRATION RATE > 60.0 (>35); GLUCOSE, FASTING 141 MG/DL (70-100); MAGNESIUM LEVEL 1.6 MG/DL (1.8-2.4); POTASSIUM SERUM 3.7 MEQ/L (3.5-5.1); SODIUM LEVEL 144 MEQ/L (136-145)
[2021-06-25] MEDS: HumaLOG INSULIN (NovoLOG) PER UNIT SC SCH (07:30)
[2021-06-25] MEDS ORDERED: MAG SULF 1GM/100ML (MAG RUN) 1 GM in IV 1 EA IV ONE (08:00)
[2021-06-25] MEDS ORDERED: MAGNESIUM GLUCONATE 500 MG TAB PO SCH (09:00)
[2021-06-25] MEDS ORDERED: VITAD1000T PO (09:11)
[2021-06-25] MEDS ORDERED: CALCI50TA PO (09:11)
[2021-06-25] MEDS ORDERED: MAGN50TA PO (09:11)
[2021-06-25] MEDS ORDERED: PILL CUTTER 1 EACH XX PRN (09:20)
[2021-07-16] MEDS ORDERED: RISP0.5T62 PO (19:55)
[2021-07-16] MEDS ORDERED: POTA-151 PO (19:55)
== END 2021-06-25 12:31 | DRG 641 ==
LOC: EDBD 10:57 → M ED 10:57 → M ED INP 16:33 → M MSPAV 19:10
PROVIDERS: ADMIT Internal Medicine; ATTEND Internal Medicine
DX: E83.51 Hypocalcemia (principal); D69.3 Immune thrombocytopenic purpura; M62.82 Rhabdomyolysis; E87.0 Hyperosmolality and hypernatremia; F03.90 Unspecified dementia, unspecified severity, without behavioral disturbance, psychotic disturbance, mood disturbance, and anxiety; N40.1 Benign prostatic hyperplasia with lower urinary tract symptoms; E11.9 Type 2 diabetes mellitus without complications; R19.7 Diarrhea, unspecified; G40.909 Epilepsy, unspecified, not intractable, without status epilepticus; R33.9 Retention of urine, unspecified; T83.098A Other mechanical complication of other urinary catheter, initial encounter; N48.5 Ulcer of penis; I48.0 Paroxysmal atrial fibrillation; Z66 Do not resuscitate; I50.9 Heart failure, unspecified; E87.6 Hypokalemia; I25.10 Atherosclerotic heart disease of native coronary artery without angina pectoris; K21.9 Gastro-esophageal reflux disease without esophagitis; E83.42 Hypomagnesemia; Z87.440 Personal history of urinary (tract) infections; Z90.49 Acquired absence of other specified parts of digestive tract; Z85.038 Personal history of other malignant neoplasm of large intestine; Z95.5 Presence of coronary angioplasty implant and graft; Z79.4 Long term (current) use of insulin; Z79.899 Other long term (current) drug therapy; Z88.0 Allergy status to penicillin; Z88.1 Allergy status to other antibiotic agents; Z88.8 Allergy status to other drugs, medicaments and biological substances; Z20.822 Contact with and (suspected) exposure to COVID-19; Y84.6 Urinary catheterization as the cause of abnormal reaction of the patient, or of later complication, without mention of misadventure at the time of the procedure

== ENCOUNTER → 2021-06-22 | Outpatient (REF) | payer MEDICARE ==
[~2021-06-22] MED LIST changes: +ACET-910 PO; +ALBU83IN NEB; +ANTI2TAB16 PO; +BACITAB PO; +CALCI50TA PO; +DULC10SU2 PR; +ENEMENE PR; +ERGO500029 PO; -FLUC100T PO; +FLUC100T3 PO; -FLUC200T2 PO; +FLUC200T4 PO; +INSU100I28 SC; +JUVEPOW4 PO; -KLOR10TA76 PO; +LINE1TAB PO; +LORA-674 PO; +MAGN500T6 PO; +MAGN50TA PO; +MILKSUS3 PO; +POTA-136 PO; +POTA-151 PO; +QUET1TAB17 PO; -QUET25TA3 PO; +RISP-68 PO; +RISP0.5T62 PO; +RISP2TAB PO; +VITAD1000T PO; -[UNRECOGNIZED DRUG - CODE] PO
[2021-06-22 09:40] LABS: BASO % 0.6 % (0.0-1.0); EOS # 0.1 10^3/uL (0.0-0.5); EOS % 1.6 % (0.0-3.0); HEMATOCRIT 28.9 % (42.0-52.0); HEMOGLOBIN 8.9 g/dl (13.5-17.5); LYMPH # 0.6 10^3/uL (1.5-5.0); LYMPH % 8.9 % (24.0-44.0); MEAN CORPUSCULAR HEMOGLOBIN 26.6 pg (27.0-33.0); MEAN CORPUSCULAR HGB CONC 30.8 g/dl (32.0-36.5); MEAN CORPUSCULAR VOLUME 86.3 fl (80.0-96.0); MONO # 0.6 10^3/uL (0.0-0.8); MONO % 8.2 % (2.0-8.0); NEUTROPHILS # 5.3 10^3/uL (1.5-8.5); NEUTROPHILS % 79.2 % (36.0-66.0); PLATELET COUNT, AUTOMATED 126 10^3/uL (150-450); RED BLOOD COUNT 3.35 10^6/uL (4.30-6.10); WHITE BLOOD COUNT 6.7 10^3/uL (4.0-10.0)
[2021-06-22 10:13] LABS: ALBUMIN 2.3 GM/DL (3.2-5.2); ALT/SGPT 26 U/L (12-78); BILIRUBIN,TOTAL 0.4 MG/DL (0.2-1.0); BLOOD UREA NITROGEN 19 MG/DL (7-18); CALCIUM LEVEL 5.9 MG/DL (8.8-10.2); CARBON DIOXIDE LEVEL 23 MEQ/L (21-32); CHLORIDE LEVEL 112 MEQ/L (98-107); CREATININE FOR GFR 1.03 MG/DL (0.70-1.30); GLOMERULAR FILTRATION RATE > 60.0 (>35); GLUCOSE, FASTING 107 MG/DL (70-100); POTASSIUM SERUM 3.7 MEQ/L (3.5-5.1); SODIUM LEVEL 147 MEQ/L (136-145); TOTAL PROTEIN 5.5 GM/DL (6.4-8.2)
== END ==
LOC: SKLAB2 08:26
PROVIDERS: ATTEND Family Medicine
DX: D64.9 Anemia, unspecified (principal)

== ENCOUNTER → 2021-06-29 | Outpatient (REF) | payer MEDICARE ==
[~2021-06-29] MED LIST changes: +ACET-910 PO; +ANTI2TAB16 PO; +BACITAB PO; +CALCI50TA PO; +DULC10SU2 PR; +ENEMENE PR; +FLUC100T PO; -FLUC100T3 PO; +FLUC200T2 PO; -FLUC200T4 PO; +KLOR10TA76 PO; +LINE1TAB PO; +LORA-674 PO; +MAGN50TA PO; +MILKSUS3 PO; -POTA-136 PO; -RISP-68 PO; +VITAD1000T PO; +[UNRECOGNIZED DRUG - CODE] PO; +[UNRECOGNIZED DRUG - CODE] PO
[2021-06-29 09:06] LABS: ALBUMIN 1.9 GM/DL (3.2-5.2); BLOOD UREA NITROGEN 10 MG/DL (7-18); CALCIUM LEVEL 9.3 MG/DL (8.8-10.2); CARBON DIOXIDE LEVEL 26 MEQ/L (21-32); CHLORIDE LEVEL 110 MEQ/L (98-107); GLOMERULAR FILTRATION RATE > 60.0 (>35); GLUCOSE, FASTING 84 MG/DL (70-100); MAGNESIUM LEVEL 1.1 MG/DL (1.8-2.4); PHOSPHORUS LEVEL 3.3 MG/DL (2.5-4.9); SODIUM LEVEL 142 MEQ/L (136-145)
== END ==
LOC: SKLAB2 07:00
PROVIDERS: ATTEND Family Medicine
DX: Z51.81 Encounter for therapeutic drug level monitoring (principal)

== ENCOUNTER → 2021-06-30 | Outpatient (REF) | payer MEDICARE ==
[2021-06-30 07:36] LABS: BASO % 0.5 % (0.0-1.0); EOS # 0.2 10^3/uL (0.0-0.5); EOS % 1.9 % (0.0-3.0); HEMATOCRIT 30.5 % (42.0-52.0); HEMOGLOBIN 9.4 g/dl (13.5-17.5); LYMPH # 2.2 10^3/uL (1.5-5.0); LYMPH % 27.7 % (24.0-44.0); MEAN CORPUSCULAR HEMOGLOBIN 26.1 pg (27.0-33.0); MEAN CORPUSCULAR HGB CONC 30.8 g/dl (32.0-36.5); MEAN CORPUSCULAR VOLUME 84.7 fl (80.0-96.0); MONO # 0.5 10^3/uL (0.0-0.8); MONO % 6.7 % (2.0-8.0); NEUTROPHILS # 4.8 10^3/uL (1.5-8.5); NEUTROPHILS % 61.3 % (36.0-66.0); WHITE BLOOD COUNT 7.8 10^3/uL (4.0-10.0)
[2021-06-30 07:48] LABS: PLATELET COUNT, AUTOMATED 78 10^3/uL (150-450)
[2021-06-30 07:56] LABS: ALBUMIN 2.1 GM/DL (3.2-5.2); ALT/SGPT 17 U/L (12-78); BILIRUBIN,TOTAL 0.3 MG/DL (0.2-1.0); BLOOD UREA NITROGEN 11 MG/DL (7-18); CALCIUM LEVEL 9.5 MG/DL (8.8-10.2); CARBON DIOXIDE LEVEL 28 MEQ/L (21-32); CHLORIDE LEVEL 109 MEQ/L (98-107); CREATININE FOR GFR 0.73 MG/DL (0.70-1.30); GLOMERULAR FILTRATION RATE > 60.0 (>35); GLUCOSE, FASTING 99 MG/DL (70-100); POTASSIUM SERUM 4.2 MEQ/L (3.5-5.1); SODIUM LEVEL 143 MEQ/L (136-145); TOTAL PROTEIN 5.3 GM/DL (6.4-8.2)
== END ==
LOC: SKLAB2 07:00
PROVIDERS: ATTEND Family Medicine
DX: I10 Essential (primary) hypertension (principal); E11.9 Type 2 diabetes mellitus without complications; D64.9 Anemia, unspecified

== ENCOUNTER → 2021-07-07 | Outpatient (REF) | payer MEDICARE ==
[2021-07-07 10:31] LABS: BASO # 0.1 10^3/uL (0.0-0.2); BASO % 0.7 % (0.0-1.0); EOS # 0.2 10^3/uL (0.0-0.5); EOS % 1.7 % (0.0-3.0); HEMATOCRIT 31.8 % (42.0-52.0); HEMOGLOBIN 9.6 g/dl (13.5-17.5); LYMPH # 1.7 10^3/uL (1.5-5.0); LYMPH % 14.3 % (24.0-44.0); MEAN CORPUSCULAR HGB CONC 30.2 g/dl (32.0-36.5); MEAN CORPUSCULAR VOLUME 86.2 fl (80.0-96.0); MONO % 8.1 % (2.0-8.0); NEUTROPHILS # 8.9 10^3/uL (1.5-8.5); NEUTROPHILS % 73.5 % (36.0-66.0); RED BLOOD COUNT 3.69 10^6/uL (4.30-6.10); WHITE BLOOD COUNT 12.1 10^3/uL (4.0-10.0)
[2021-07-07 10:35] LABS: PLATELET COUNT, AUTOMATED 93 10^3/uL (150-450)
[2021-07-07 11:23] LABS: ALBUMIN 2.1 GM/DL (3.2-5.2); ALT/SGPT 18 U/L (12-78); BILIRUBIN,TOTAL 0.3 MG/DL (0.2-1.0); BLOOD UREA NITROGEN 22 MG/DL (7-18); CALCIUM LEVEL 8.8 MG/DL (8.8-10.2); CARBON DIOXIDE LEVEL 29 MEQ/L (21-32); CHLORIDE LEVEL 109 MEQ/L (98-107); GLOMERULAR FILTRATION RATE > 60.0 (>35); GLUCOSE, FASTING 201 MG/DL (70-100); MAGNESIUM LEVEL 0.9 MG/DL (1.8-2.4); PHOSPHORUS LEVEL 2.7 MG/DL (2.5-4.9); POTASSIUM SERUM 3.6 MEQ/L (3.5-5.1); SODIUM LEVEL 144 MEQ/L (136-145); TOTAL PROTEIN 5.3 GM/DL (6.4-8.2)
== END ==
LOC: SKLAB2 15:55
PROVIDERS: ATTEND Family Medicine
DX: E83.42 Hypomagnesemia (principal); I10 Essential (primary) hypertension; E11.9 Type 2 diabetes mellitus without complications; D64.9 Anemia, unspecified

== ENCOUNTER → 2021-07-08 | Outpatient (REF) | payer MEDICARE ==
[2021-07-08 09:17] LABS: HEMATOCRIT 29.1 % (42.0-52.0); HEMOGLOBIN 8.6 g/dl (13.5-17.5); MEAN CORPUSCULAR HEMOGLOBIN 25.7 pg (27.0-33.0); MEAN CORPUSCULAR HGB CONC 29.6 g/dl (32.0-36.5); MEAN CORPUSCULAR VOLUME 87.1 fl (80.0-96.0); RED BLOOD COUNT 3.34 10^6/uL (4.30-6.10); WHITE BLOOD COUNT 13.5 10^3/uL (4.0-10.0)
[2021-07-08 09:18] LABS: PLATELET COUNT, AUTOMATED 98 10^3/uL (150-450)
--- NOTE | 2021-07-08 09:32 | REP ---
INDICATION: SOB LEUKOCYTOSIS. COMPARISON: 06/22/2021. TECHNIQUE: Single portable AP view of the chest was performed. FINDINGS: There is no acute infiltrate or pulmonary edema. Lungs are clear. The heart is not significantly enlarged. The mediastinal silhouette is unremarkable. The visualized osseous structures are intact.Multiple sternal wires are present. IMPRESSION: No acute pulmonary disease. <Electronically signed by Silvio Etienne > 07/08/21 0928
[2021-07-08 11:48] LABS: APPEARANCE, URINE CLOUDY (CLEAR); BACTERIA, URINE AUTO 1+ (NEGATIVE); BILIRUBIN, URINE AUTO NEGATIVE (NEGATIVE); BLOOD, URINE BLOOD NEGATIVE (NEGATIVE); COLOR, URINE YELLOW (YELLOW); GLUCOSE, URINE (UA) AUTO NEGATIVE (NEGATIVE); KETONE, URINE AUTO NEGATIVE (NEGATIVE); LEUKOCYTE ESTERASE, URINE AUTO 3+ (NEGATIVE); MUCUS, URINE SMALL (NEGATIVE); NITRITE, URINE AUTO POSITIVE (NEGATIVE); PROTEIN, URINE AUTO 1+ mg/dL (NEGATIVE); RBC, URINE AUTO 15 /HPF (0-3); SQUAMOUS EPITHELIAL CELL UR AU 0 /HPF (0-6); UROBILINOGEN, URINE AUTO 0.2 mg/dL (0.0-2.0); WBC, URINE AUTO TNTC /HPF (0-3)
== END ==
LOC: SKLAB2 15:56
PROVIDERS: ATTEND Family Medicine
DX: R06.02 Shortness of breath (principal); D72.829 Elevated white blood cell count, unspecified; Z79.899 Other long term (current) drug therapy

== ENCOUNTER → 2021-07-09 | Outpatient (REF) | payer MEDICARE ==
[2021-07-09 09:36] LABS: HEMATOCRIT 27.1 % (42.0-52.0); HEMOGLOBIN 8.2 g/dl (13.5-17.5); MEAN CORPUSCULAR HEMOGLOBIN 25.9 pg (27.0-33.0); MEAN CORPUSCULAR HGB CONC 30.3 g/dl (32.0-36.5); MEAN CORPUSCULAR VOLUME 85.5 fl (80.0-96.0); PLATELET COUNT, AUTOMATED 113 10^3/uL (150-450); RED BLOOD COUNT 3.17 10^6/uL (4.30-6.10)
[2021-07-09 10:13] LABS: BLOOD UREA NITROGEN 18 MG/DL (7-18); CALCIUM LEVEL 8.5 MG/DL (8.8-10.2); CARBON DIOXIDE LEVEL 25 MEQ/L (21-32); CHLORIDE LEVEL 114 MEQ/L (98-107); CREATININE FOR GFR 0.89 MG/DL (0.70-1.30); GLOMERULAR FILTRATION RATE > 60.0 (>35); GLUCOSE, FASTING 225 MG/DL (70-100); POTASSIUM SERUM 3.6 MEQ/L (3.5-5.1); SODIUM LEVEL 147 MEQ/L (136-145)
== END ==
LOC: SKLAB2 08:28
PROVIDERS: ATTEND Family Medicine
DX: D64.9 Anemia, unspecified (principal); I10 Essential (primary) hypertension; E11.9 Type 2 diabetes mellitus without complications

== ENCOUNTER → 2021-07-13 | Outpatient (REF) | payer MEDICARE ==
[2021-07-13 08:30] LABS: BASO # 0.1 10^3/uL (0.0-0.2); BASO % 0.5 % (0.0-1.0); EOS # 0.2 10^3/uL (0.0-0.5); EOS % 1.5 % (0.0-3.0); HEMATOCRIT 27.3 % (42.0-52.0); HEMOGLOBIN 8.2 g/dl (13.5-17.5); LYMPH # 1.6 10^3/uL (1.5-5.0); LYMPH % 16.5 % (24.0-44.0); MEAN CORPUSCULAR HEMOGLOBIN 25.9 pg (27.0-33.0); MEAN CORPUSCULAR VOLUME 86.4 fl (80.0-96.0); MONO # 0.7 10^3/uL (0.0-0.8); NEUTROPHILS % 72.4 % (36.0-66.0); RED BLOOD COUNT 3.16 10^6/uL (4.30-6.10); WHITE BLOOD COUNT 9.7 10^3/uL (4.0-10.0)
[2021-07-13 08:33] LABS: PLATELET COUNT, AUTOMATED 80 10^3/uL (150-450)
[2021-07-13 09:05] LABS: ALBUMIN 1.6 GM/DL (3.2-5.2); ALT/SGPT 19 U/L (12-78); BILIRUBIN,TOTAL 0.3 MG/DL (0.2-1.0); BLOOD UREA NITROGEN 32 MG/DL (7-18); CALCIUM LEVEL 8.9 MG/DL (8.8-10.2); CARBON DIOXIDE LEVEL 27 MEQ/L (21-32); CHLORIDE LEVEL 118 MEQ/L (98-107); CREATININE FOR GFR 0.95 MG/DL (0.70-1.30); GLOMERULAR FILTRATION RATE > 60.0 (>35); GLUCOSE, FASTING 210 MG/DL (70-100); MAGNESIUM LEVEL 0.7 MG/DL (1.8-2.4); POTASSIUM SERUM 3.6 MEQ/L (3.5-5.1); SODIUM LEVEL 152 MEQ/L (136-145); TOTAL PROTEIN 5.1 GM/DL (6.4-8.2)
--- NOTE | 2021-07-13 09:27 | REP ---
INDICATION: INCREASED RESP EFFORT COMPARISON: 07/08/2021 TECHNIQUE: Portable AP view of the chest FINDINGS: The mediastinum and cardiac silhouette are stable and within normal limits for portable technique. The lung herrera are clear without acute consolidation, effusion, or pneumothorax. Skeletal structures are intact. IMPRESSION: No acute cardiopulmonary process appreciated. <Electronically signed by Sergio Olmedo > 07/13/21 [id number]
== END ==
LOC: SKLAB2 07:00
PROVIDERS: ATTEND Family Medicine
DX: E86.0 Dehydration (principal); E87.8 Other disorders of electrolyte and fluid balance, not elsewhere classified; Z51.81 Encounter for therapeutic drug level monitoring; R09.89 Other specified symptoms and signs involving the circulatory and respiratory systems; D64.9 Anemia, unspecified; D69.6 Thrombocytopenia, unspecified

== ENCOUNTER → 2021-07-14 | Outpatient (REF) | payer MEDICARE ==
[~2021-07-14] MED LIST changes: +ALBU83IN NEB; +ERGO500029 PO; +INSU100I28 SC; +JUVEPOW4 PO; +MAGN500T6 PO; +POTA20TA6 PO; +[UNRECOGNIZED DRUG - CODE] PO
[2021-07-14 08:13] LABS: BLOOD UREA NITROGEN 33 MG/DL (7-18); CARBON DIOXIDE LEVEL 27 MEQ/L (21-32); CHLORIDE LEVEL 121 MEQ/L (98-107); CREATININE FOR GFR 0.98 MG/DL (0.70-1.30); GLOMERULAR FILTRATION RATE > 60.0 (>35); GLUCOSE, FASTING 212 MG/DL (70-100); POTASSIUM SERUM 3.2 MEQ/L (3.5-5.1); SODIUM LEVEL 152 MEQ/L (136-145)
[2021-07-14 08:14] LABS: CALCIUM LEVEL 8.7 MG/DL (8.8-10.2); MAGNESIUM LEVEL 0.7 MG/DL (1.8-2.4)
== END ==
LOC: SKLAB2 07:00
PROVIDERS: ATTEND Family Medicine
DX: E86.0 Dehydration (principal); E87.8 Other disorders of electrolyte and fluid balance, not elsewhere classified

== ENCOUNTER → 2021-07-15 | Outpatient (REF) | payer MEDICARE ==
[2021-07-15 14:20] LABS: BLOOD UREA NITROGEN 27 MG/DL (7-18); CALCIUM LEVEL 8.2 MG/DL (8.8-10.2); CARBON DIOXIDE LEVEL 26 MEQ/L (21-32); CHLORIDE LEVEL 119 MEQ/L (98-107); GLOMERULAR FILTRATION RATE > 60.0 (>35); GLUCOSE, FASTING 229 MG/DL (70-100); MAGNESIUM LEVEL 0.7 MG/DL (1.8-2.4); POTASSIUM SERUM 3.2 MEQ/L (3.5-5.1); SODIUM LEVEL 150 MEQ/L (136-145)
== END ==
LOC: SKLAB2 07:00
PROVIDERS: ATTEND Family Medicine
DX: E86.0 Dehydration (principal); E87.8 Other disorders of electrolyte and fluid balance, not elsewhere classified; D64.9 Anemia, unspecified; D69.6 Thrombocytopenia, unspecified

== ENCOUNTER 2021-07-16 17:06 | Inpatient (IN) | payer MEDICARE ==
[~2021-07-16] VITALS: Ht 170.2 cm; Wt 77.7 kg
[~2021-07-16 17:06] MED LIST changes: -ALBU83IN NEB; -ERGO500029 PO; -INSU100I28 SC; -JUVEPOW4 PO; -MAGN500T6 PO; -POTA20TA6 PO; -[UNRECOGNIZED DRUG - CODE] PO
[2021-07-16 17:58] LABS: BASO # 0.1 10^3/uL (0.0-0.2); BASO % 0.5 % (0.0-1.0); EOS # 0.4 10^3/uL (0.0-0.5); EOS % 3.4 % (0.0-3.0); HEMATOCRIT 28.9 % (42.0-52.0); HEMOGLOBIN 8.6 g/dl (13.5-17.5); LYMPH # 1.8 10^3/uL (1.5-5.0); LYMPH % 18.1 % (24.0-44.0); MEAN CORPUSCULAR HEMOGLOBIN 25.7 pg (27.0-33.0); MEAN CORPUSCULAR HGB CONC 29.8 g/dl (32.0-36.5); MEAN CORPUSCULAR VOLUME 86.3 fl (80.0-96.0); MONO # 0.6 10^3/uL (0.0-0.8); MONO % 5.7 % (2.0-8.0); NEUTROPHILS # 7.2 10^3/uL (1.5-8.5); NEUTROPHILS % 70.7 % (36.0-66.0); RED BLOOD COUNT 3.35 10^6/uL (4.30-6.10); WHITE BLOOD COUNT 10.2 10^3/uL (4.0-10.0)
[2021-07-16] MEDS ORDERED: MAG SULF 1GM/100ML (MAG RUN) 1 GM in IV 1 EA IV ONE (18:00)
[2021-07-16 18:26] LABS: BLOOD UREA NITROGEN 26 MG/DL (7-18); CALCIUM LEVEL 7.7 MG/DL (8.8-10.2); CARBON DIOXIDE LEVEL 25 MEQ/L (21-32); CHLORIDE LEVEL 116 MEQ/L (98-107); CREATININE FOR GFR 0.83 MG/DL (0.70-1.30); GLOMERULAR FILTRATION RATE > 60.0 (>35); GLUCOSE, FASTING 187 MG/DL (70-100); MAGNESIUM LEVEL 0.5 MG/DL (1.8-2.4); POTASSIUM SERUM 3.4 MEQ/L (3.5-5.1); SODIUM LEVEL 150 MEQ/L (136-145)
[2021-07-16] MEDS ORDERED: ACETAMINOPHEN TAB 650MG DOSE (2X325MG) PO PRN (18:45)
[2021-07-16] MEDS ORDERED: NS 0.45% 1,000 ML IV SCH (18:45)
[2021-07-16] MEDS ORDERED: POTASSIUM CHLORIDE 10% LIQ 20 MEQ/15 ML UDC PO ONE (18:45)
[2021-07-16] MEDS ORDERED: GLUCAGON INJ 1MG VIAL SC PRN (18:55)
[2021-07-16] MEDS ORDERED: GLUCOSE 4GM CHEW TABLET PO PRN (18:55)
[2021-07-16] MEDS ORDERED: DEXTROSE 50% 50 ML SYRINGE IV PRN (18:55)
[2021-07-16 19:21] LABS: RSV AMPLIFICATION NEGATIVE (NEGATIVE)
[2021-07-16] MEDS ORDERED: NYST1POW9 TOP (19:55)
[2021-07-16] MEDS ORDERED: ERGO500029 PO (19:55)
[2021-07-16] MEDS ORDERED: [UNRECOGNIZED DRUG - CODE] PO (19:55)
[2021-07-16] MEDS ORDERED: JUVEPOW4 PO (19:55)
[2021-07-16] MEDS ORDERED: INSU100I28 SC (19:55)
[2021-07-16] MEDS ORDERED: MAGN500T6 PO (19:55)
[2021-07-16] MEDS ORDERED: ALBU83IN NEB (19:55)
[2021-07-16] MEDS ORDERED: POTA20TA6 PO (19:55)
[2021-07-16] MEDS ORDERED: HOME MED LIST COMPLETE! XX SCH (20:00)
--- NOTE | 2021-07-16 20:00 | HPEPDOC ---
General Date of Admission 07/16/21 Date of Service: Jul 16, 2021 Chief Complaint The patient is a 81-year-old male admitted with a reason for visit of Abnormal Labs. 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 He has had multiple hospital admissions in the past year, most recently here 06/22-06/25 for similar presentation when he had rehydration and repletion of electrolytes. Nephrology and urology had seen pt given his chronic solis and penile ulcerations. Pt d/c'd june 25 and recommend to f/u with hematology for anemia and ITP. Pt returns today in no acute distress but chronically ill and laying on the right side curled up knees and arms bent, almost as of contracted. Unfortunately, poor historian and unable to give ROS or details, he is able to say his date of and denies pain or SOB. Patient is noted to have multiple decubitus ulcers and chronically ill, disheveled appearance. According to [place] paperwork, pt had some pedal edema and there was concern about rhonchi/ diminished lung bases as well. Of note, ekg sinus with PACs, Na 150, Cl 116, Creat 0.88, BUN 26, Hgb 8.6, wbc 10.2, Mag 0.5, K 3.4, Ca 7.7. CXR pend. Resp Panel Neg, lactic pend, bnp pend. Patient will be admitted for further evaluation management of presenting concerns Home Medications Scheduled Arginine/Glutamine/Calcium Bmb (Rell Packet) 1 Each Powd.pack, 1 POW PO DAILY, (Reported) Bisoprolol Fumarate (Bisoprolol Fumarate) 10 Mg Tablet, 10 MG PO DAILY, (Reported) Ergocalciferol (Vitamin D2) (Vitamin D2) 50,000 Units Cap, 50,000 UNITS PO QMONTH, (Reported) Folic Acid (Folic Acid) 1 Mg Tablet, 1 MG PO DAILY, (Reported) Insulin Glargine,Hum.rec.anlog (Semglee Pen) 100 Unit/Ml (3 Ml) Insuln.pen, 15 UNIT SC DAILY, (Reported) Levetiracetam (Levetiracetam) 250 Mg Tablet, 500 MG PO QHS, (Reported) Levetiracetam (Levetiracetam) 250 Mg Tablet, 250 MG PO QAM, (Reported) Loratadine (Loratadine) 10 Mg Tablet, 10 MG PO DAILY, (Reported) Magnesium Gluconate (Magnesium Gluconate) 27 Mg Tablet, 500 MG PO QID, (Reported) Melatonin (Melatonin) 10 Mg Capsule, 10 MG PO QHS, (Reported) Nystatin (Nystatin Powder) 15 Gm Powder, 1 APPLIC TOP BID, (Reported) WASH AREA WITH GAUZE AND NS THEN APPLY TO LESIONS ON PENIS Pantoprazole Sodium (Pantoprazole Sodium) 40 Mg Tablet.dr, 40 MG PO DAILY, (R eported) Potassium Chloride (Potassium Chloride) 20 Meq Tab.er.prt, 20 MEQ PO TID, (Reported) Risperidone (Risperidone Odt) 0.5 Mg Tab.rapdis, 0.5 MG PO QHS, (Reported) Scheduled PRN Acetaminophen (Acetaminophen) 325 Mg Tablet, 650 MG PO Q4H PRN for PAIN LEVEL 1- 6, (Reported) Albuterol Sulf (Albuterol Sulfate) 2.5 Mg/3 Ml Vial.neb, 1 VIAL NEB Q6H PRN for SOB/WHEEZING, (Reported) Diclofenac Sodium (Diclofenac Sodium) 1% 100GM Gel..gram., 1 APLCT TOP QID PRN for SHOULDER PAIN, (Reported) Magnesium Hydroxide (Milk of Magnesia) 400 Mg/5 Ml Oral.susp, 2,400 MG PO DAILY PRN for CONSTIPATION, (Reported) Sodium Phosphate,Phelps-Dibasic (Enema) 133 Ml Enema, 1 MABRIN [place] DAILY PRN for CONSTIPATION, (Reported) Allergies Coded Allergies: cephalexin (Verified Allergy, Severe, made his face peel, 11/04/20) procaine (Verified Allergy, Severe, difficulty breathing, 02/04/20) Penicillins (Verified Allergy, Intermediate, swelling, 02/04/20) ceftriaxone (Verified Adverse Reaction, Unknown, skin peeling, 06/22/21) Past Medical History Medical History multiple/chronic UTI, Dementia, Chronic refractory ITP, Pseudothrombocytopenia needs EDTA free vial for platelet count, Coccygeal decubiti, BPH with indwelling solis, Diabetes, Adenocarcinoma of the ascending colon ( hepatic flexure) s/p right hemicolectomy 2017, Seizure disorder, Paroxysmal Afib not on anticoagulation, Congestive Heart Failure, CAD s/p stents, GERD Surgical History CARDIAC CATH WITH PTCA 06/2004-STENTING RCA X2 VALVE REPAIR AORTIC VALVE 11/2007 APPENDECTOMY AGE 12 CARPAL TUNNEL RELEASE BILATERAL 2002 SHOULDER LEFT 2002 Left CAROTID ENDARTERECTOMY 2007 BONE MARROW Bx 06/2018 COLON SURGERY 09/2018 Family History Significant Family History: No pertinent family hx Social History * Smoker: former Smoker Alcohol: Denies Recent Travel/Sick Contacts: Denies: Recent travel, Recent sick contacts Psychosocial History: Dementia [facility] at [facility] A-FIB History Current/History of A-Fib/PAF?: Yes Current PO Anticoag Therapy: No Treatment Treatment ordered: NONE Reason Anticoagulant not given: Current bleeding Review of Systems Other systems Unable to obtain given pt limitations Physical Examination General Exam: Positive: Alert, No Acute Distress, Other (chronically ill) Eye Exam: Positive: PERRLA, Conjunctiva & lids normal, EOMI; Negative: Sclera icteric ENT Exam: Positive: Atraumatic, Mucous membr. moist/pink, Pharynx Normal Neck Exam: Positive: Supple; Negative: JVD, thyromegaly Chest Exam: Positive: Diminished Heart Exam: Positive: Rate Normal, Regular Rhythm, Normal S1, Normal S2; Negative: Murmurs, Rubs Telemetry: Positive: PACs Abdomen Exam: Positive: Normal bowel sounds, Soft; Negative: Tenderness, Hepatospenomegaly Extremity Exam: Positive: Edema (Hands and Feet. Left Foot 3+ greater than R foot ), Normal pulses; Negative: Clubbing, Cyanosis, Tenderness Skin Exam: Positive: Breakdown, Other skin issue (multiple ecchymotic areas superficial throughout upper/lower extremities; multiple sacral decubitus ulcers on admission, blister on bony prominence feet ) Neuro Exam: Positive: Cranial Nerves 3-12 NL Psych Exam: Positive: Mood NL, Other (ox1, follows some commands, slow to respond ) Other physical findings : Area of penile erosion/ small irritation penile head by catheter site Vital Signs Vital Signs Date Time Temp Pulse Resp B/P (MAP) Pulse Ox O2 Delivery O2 Flow Rate FiO2 07/16/21 18:09 97.1 07/16/21 17:21 88 16 97 Room Air 07/16/21 17:17 119/56 (77) Laboratory Data Labs 24H Laboratory Tests 2 07/16/21 17:24: Anion Gap 9, Glomerular Filtration Rate > 60.0, Calcium Level 7.7L, Magnesium Level 0.5*L 07/16/21 18:35: CBC/BMP Laboratory Tests 07/16/21 17:24 Assessment/Plan 1. Dehydration: Hypernatremia, hyperchloremia and elevated BUN in setting of presumed Poor PO intake and presumed continued GI losses -Rehydrate pt and monitor BMP with consideration for fluid balance as pt with hx of DHF -UOP and Is and Os -Recheck BMP to ensure Na trending down. 2. Hypocalcemia, hypomagnesemia, hypokalemia: In setting of presumed continued GI losses and PPI. -Monitor pt, tele -EKG QTC: 460 -Replete and recheck labs -Am labs -Continue pt supplements, Last admission nephrology recommended Mag gluconate 500mg PO BID and Calcium vitmain D supplement 3. Leukocytosis: wbc 10.2, last 9.4 three days ago. Could be refractory given patient's chronic conditions or potential for developing infection. Fortunately, he is afebrile, not tachycardic, not tachypneic. -Patient with cloudy urine and indwelling Solis to be changed. -Pt does have chronic wounds notably sacrum decubiti and heel/leg. -Chest x-ray pending. -Of note, patient does have pedal edema left greater than right there is some pinkness to his legs, however this could be from some moisture associated with how he is laying on the pillows/ with his boots. The area of coloration is not warm and nontender. -Will obtain BLE US. Consideration for developing cellulitis versus third spacing or DVT. Consider differentials. -Will hold off on antibiotics unless patient with systemic signs of infection and pending lactic/pro-Volodymyr. 4. ?diarrhea: Patient has been having diarrhea in the past month. He is unable to say if this is continuing and at what frequency. He is wearing an incontinence brief during exam. GI panel negative 2 weeks ago, laxatives stopped at that time. -Monitor patient output and consider resubmitting stool specimen accordingly. 5. Diabetes. Check A1c, ADA diet after bedside swallow eval. ACHS and SSI 6. Seizure disorder: Seizure precautions. Continue home medications. 7. Paroxysmal Afib not on anticoagulation: Patient with occasional PACs. He is rate controlled. Continue home medications once reconciled. Given his anemia and history of thrombocytopenia, patient is not on long-term AC. 8. Congestive Heart Failure: Chronic, grade 1 diastolic on last echo. Patient does not necessarily appear overloaded-his extremity edema could be dependent as he appears chronically ill and stiff with his positioning. -Will check BNP. Again, chest x-ray pending but he is tolerating room air 97%. -Given his hypernatremia, elevated BUN with Hemoccult negative and hyperchloremia-will opt for fluid trial and adjust plan accordingly from patient response-repeat BMP within 4 hours. 9. Sacral decubiti and pressure injury to heal: Air mattress, turn every 2h and heel boots. Wound care. 10. Penile ulceration: urology consulted june 23 and recommended no surgical treatment and importance of decreasing tension on the penis from the catheter. Unable to compare from previous level, continue to monitor and consider wound care consult accordingly. 11. Multiple/chronic UTI in pt with BPH and chronic indwelling solis: Pt afebrile, normotensive, not tachycardic. Mild leukocytosis noted. Patient does have cloudy urine. Opt for changing Solis in a.m. in case patient requires urological assistance as patient has a history of BPH. UA will be obtained per policy with change. 12. Chronic refractory ITP: stable 13. CAD s/p stents: No Asa given thrombocytopenia. Pt to be monitored on tele. 14. GERD: Protonix on hold given patient electrolyte disturbance above. 15. Dementia: Patient with very limited interaction. He is able to state his birthday and follow small commands but otherwise total assist for ADLs. Encourage patient expression. Courage family patient centered care with contacted patient's surrogate his , Charline. DVT Prophylaxis: SCDs, Pt is anemic with significant hx of thrombocytopenia CODE Status: DNR with trail Intubation according to [facility]. Pt with poor prognosis. Dispo: Return to [facility] Keep once electrolytes balanced and pt rehydrated Plan / VTE VTE Prophylaxis Ordered?: Yes EDITA PHAM NP Jul 16, 2021 19:11
--- NOTE | 2021-07-16 20:03 | REP ---
INDICATION: rhonchi, diminished COMPARISON: 07/13/2021 TECHNIQUE: Portable AP view of the chest FINDINGS: The mediastinum and cardiac silhouette are stable and cardiomegaly along with sternotomy again noted. The lung herrera demonstrate chronic appearing changes without acute consolidation, effusion, or pneumothorax. IMPRESSION: No obvious acute consolidation or effusion. <Electronically signed by Sergio Olmedo > 07/16/211958
[2021-07-16] MEDS ORDERED: RAMELTEON 8 MG TAB (ROZEREM) PO PRN (20:35)
[2021-07-16] MEDS ORDERED: LEVEMIR (INSULIN DETEMIR) 1 UNITS/0.01ML SC ONE (20:35)
[2021-07-16 20:50] LABS: CPK CREATINE PHOSPHOKINASE 129 U/L (39-308); FERRITIN 180 NG/ML (26-388); IRON (FE) 19 UG/DL (65-175); NT-PRO BNP 1426 PG/ML (<450); PERCENT SATURATION 12.2 % (19.7-50.0); TOTAL IRON BINDING CAPACITY 156 UG/DL (250-450)
[2021-07-16 20:55] LABS: VITAMIN B12 LEVEL 354 PG/ML (247-911)
[2021-07-16 20:56] LABS: FOLATE 21.1 NG/ML (>5.4)
[2021-07-16] MEDS ORDERED: HumaLOG INSULIN (NovoLOG) PER UNIT SC SCH (21:00)
[2021-07-16] MEDS ORDERED: MAGNESIUM GLUCONATE 500 MG TAB PO SCH (21:00)
--- NOTE | 2021-07-16 21:07 | REPVR ---
PROCEDURE INFORMATION: Exam: US Duplex Lower Extremity Veins, Bilateral Exam date and time: 07/16/2021 8:20 PM Age: 81 years old Clinical indication: Edema, localized; Lower extremity, bilateral; Additional info: Ble edema, l>r, redness TECHNIQUE: Imaging protocol: Real-time duplex ultrasound of the extremities with 2-D menjivar scale, color Doppler flow and spectral waveform analysis with image documentation. Complete exam focused on the bilateral lower extremity veins. COMPARISON: 1. US Duplex, Ext LOWER veins, bilat 2020-09-17 18:40 2. US Duplex, Ext LOWER veins, bilat 2019-05-20 21:29 FINDINGS: Limitations: Some segments of the left lower extremity were difficult to visualize as result of positioning. Right deep veins: Unremarkable. The common femoral, femoral, proximal profunda femoral and popliteal veins are patent without thrombus. Normal Doppler waveforms. Normal compressibility and/or augmentation response. Right superficial veins: Saphenofemoral junction is patent without thrombus. Left deep veins: Unremarkable. The common femoral, femoral, proximal profunda femoral and popliteal veins are patent without thrombus. Normal Doppler waveforms. Normal compressibility and/or augmentation response. Left superficial veins: Saphenofemoral junction is patent without thrombus. Soft tissues: Unremarkable. IMPRESSION: No evidence of deep vein thrombosis. Electronically signed by: Shankar Gutiérrez On 07/16/2021 21:07:08 PM
[2021-07-16] MEDS: risperiDONE 0.5 MG TAB PO SCH (21:51)
[2021-07-16] MEDS: levETIRAcetam 250MG TABLET (KEPPRA) PO SCH (21:52)
[2021-07-16] MEDS: POTASSIUM CHLORIDE 10 MEQ SR TABLET PO SCH (21:55)
[2021-07-16 22:27] LABS: ALBUMIN 1.7 GM/DL (3.2-5.2); ALT/SGPT 27 U/L (12-78); BILIRUBIN,TOTAL 0.4 MG/DL (0.2-1.0); BLOOD UREA NITROGEN 24 MG/DL (7-18); CARBON DIOXIDE LEVEL 27 MEQ/L (21-32); CHLORIDE LEVEL 117 MEQ/L (98-107); CREATININE FOR GFR 0.76 MG/DL (0.70-1.30); GLOMERULAR FILTRATION RATE > 60.0 (>35); GLUCOSE, FASTING 139 MG/DL (70-100); POTASSIUM SERUM 3.2 MEQ/L (3.5-5.1); SODIUM LEVEL 149 MEQ/L (136-145); TOTAL PROTEIN 5.8 GM/DL (6.4-8.2)
[2021-07-16 23:08] VITALS: BP 102/66
[2021-07-17 00:30] VITALS: BP 98/59
[2021-07-17] MEDS: NYSTATIN 100,000 UNITS/GM TOPICAL PWD 15 GM TOP SCH ×3 (00:43→20:16)
[2021-07-17 00:45] VITALS: BP 102/48
[2021-07-17] MEDS ORDERED: SODIUM CHLORIDE 0.9% 1000ML IV ONE (00:50)
[2021-07-17] MEDS: MAG SULF 1GM/100ML (MAG RUN) 1 GM in IV 1 EA IV SCH ×5 (01:25→13:28)
[2021-07-17 01:47] LABS: BLOOD UREA NITROGEN 25 MG/DL (7-18); CALCIUM LEVEL 7.7 MG/DL (8.8-10.2); CARBON DIOXIDE LEVEL 26 MEQ/L (21-32); CHLORIDE LEVEL 117 MEQ/L (98-107); GLOMERULAR FILTRATION RATE > 60.0 (>35); GLUCOSE, FASTING 165 MG/DL (70-100); POTASSIUM SERUM 3.8 MEQ/L (3.5-5.1); SODIUM LEVEL 150 MEQ/L (136-145)
[2021-07-17] MEDS ORDERED: ALBUTEROL SULFATE 2.5 MG/0.5 ML INH NEB SOLN NEB PRN (02:00)
[2021-07-17] MEDS ORDERED: D5W 1,000 ML IV SCH (02:15)
[2021-07-17 06:00] VITALS: BP 108/56
[2021-07-17] MEDS ORDERED: HumaLOG INSULIN (NovoLOG) PER UNIT SC SCH ×2 (06:00→07:30)
[2021-07-17 06:22] LABS: BASO # 0.1 10^3/uL (0.0-0.2); BASO % 0.8 % (0.0-1.0); EOS # 0.2 10^3/uL (0.0-0.5); EOS % 2.4 % (0.0-3.0); HEMATOCRIT 28.2 % (42.0-52.0); HEMOGLOBIN 8.3 g/dl (13.5-17.5); LYMPH # 1.5 10^3/uL (1.5-5.0); MEAN CORPUSCULAR HEMOGLOBIN 25.2 pg (27.0-33.0); MEAN CORPUSCULAR HGB CONC 29.4 g/dl (32.0-36.5); MEAN CORPUSCULAR VOLUME 85.5 fl (80.0-96.0); MONO # 0.6 10^3/uL (0.0-0.8); MONO % 6.4 % (2.0-8.0); NEUTROPHILS # 6.6 10^3/uL (1.5-8.5); NEUTROPHILS % 72.4 % (36.0-66.0); WHITE BLOOD COUNT 9.1 10^3/uL (4.0-10.0)
[2021-07-17 06:35] LABS: BLOOD UREA NITROGEN 22 MG/DL (7-18); CALCIUM LEVEL 7.7 MG/DL (8.8-10.2); CARBON DIOXIDE LEVEL 22 MEQ/L (21-32); CHLORIDE LEVEL 119 MEQ/L (98-107); CREATININE FOR GFR 0.71 MG/DL (0.70-1.30); GLOMERULAR FILTRATION RATE > 60.0 (>35); GLUCOSE, FASTING 158 MG/DL (70-100); POTASSIUM SERUM 3.8 MEQ/L (3.5-5.1); SODIUM LEVEL 149 MEQ/L (136-145)
[2021-07-17 08:27] LABS: PLTBLUE- EDTA FREE CALC 40 K/mm3 (172-450)
[2021-07-17 08:51] LABS: PLTBLUE- EDTA FREE MACHINE 36 10^3/uL (172-450)
[2021-07-17 09:00] VITALS: BP 114/53
[2021-07-17] MEDS ORDERED: FOLIC ACID 1 MG TAB PO SCH (09:00)
[2021-07-17] MEDS ORDERED: LORATADINE 10 MG TAB PO SCH (09:00)
[2021-07-17] MEDS ORDERED: bisoproloL fumarate 10 MG TAB PO SCH (09:00)
[2021-07-17] MEDS: levETIRAcetam 250MG TABLET (KEPPRA) PO SCH ×2 (10:34→20:16)
[2021-07-17] MEDS: POTASSIUM CHLORIDE 10 MEQ SR TABLET PO SCH ×3 (10:35→20:16)
[2021-07-17] MEDS: MAGNESIUM GLUCONATE 500 MG TAB PO SCH ×4 (10:36→20:16)
--- NOTE | 2021-07-17 11:48 | IPNPDOC ---
Subjective Date Seen The patient was seen on 07/17/21. Subjective Chief Complaint/HPI Patient somnolent this morning I try to wake him up calling and shaking did not open his eyes and then I applied some sternal pressure at that point he opened his eyes and then closed it again did not make any verbal noises or after any wards I tried to open his eyes however he was resisting it keeping his eyes tightly closed. Had 2 incontinent bowel movements overnight. No oral intake yet Objective Physical Examination General Exam: Positive: No Acute Distress, Other (somnolent) Eye Exam: Positive: PERRLA, Conjunctiva & lids normal, EOMI; Negative: Sclera icteric ENT Exam: Positive: Atraumatic, Mucous membr. moist/pink, Pharynx Normal Neck Exam: Positive: Supple; Negative: JVD, thyromegaly Chest Exam: Positive: Diminished Heart Exam: Positive: Rate Normal, Regular Rhythm, Normal S1, Normal S2, Murmurs (soft systolic murmur present); Negative: Rubs Telemetry: Positive: PACs Abdomen Exam: Positive: Normal bowel sounds, Soft; Negative: Tenderness Extremity Exam: Positive: Edema (Hands and Feet. Left Foot 3+ greater than R foot ), Other (both the legs are contracted at the knees); Negative: Clubbing, Cyanosis Skin Exam: Positive: Breakdown, Other skin issue (multiple ecchymotic areas superficial throughout upper/lower extremities; multiple sacral decubitus ulcers on admission, blister on bony prominence feet ) Assessment /Plan Assessment Augie Samano is an 81yo M PMH significant for dementia, urinary retention managed w/ a chronic catheter, DM2, seizure disorder, paroxysmal A fib, CAD, and refractory ITP, who arrives with abnormal labs from [place]. He has had multiple hospital admissions in the past year, most recently here 06/22-06/25 for similar presentation when he had rehydration and repletion of electrolytes. Nephrology and urology had seen pt given his chronic solis and penile ulcerations. Advanced dementia Says a few words as per admitting provider. Did not speak any words for me today. total assist for ADLs contracted at the knees. Sleeps most of the day Dehydration: Hypernatremia, hyperchloremia and elevated BUN in setting of Poor PO intake and presumed continued GI losses continue dex Hypocalcemia, hypomagnesemia, hypokalemia: getting IV replacements and po replacements Unsure if he will be taking po meds Diarrhea Patient has been having diarrhea in the past month GI panel negative 2 weeks ago, laxatives stopped at that time. Diabetes sugars controlled at this time lispro sliding scale, levemir Seizure disorder: Seizure precautions. Continue home medications. Paroxysmal Afib now in sinus with PACs. He is rate controlled. Given his anemia and history of thrombocytopenia, patient is not on long-term AC. Diastolic Heart Failure: Patient does not appear overloaded-his extremity edema is likely due to malnutrition and severe hypoalbuminemia. Sacral decubiti and pressure injury to heal: Air mattress, turn every 2h and heel boots. Wound care. Penile ulceration urology consulted june 23 and recommended no surgical treatment and importance of decreasing tension on the penis from the catheter. CAD s/p stents: No Asa given thrombocytopenia. 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 Also has pseudothrombocytopenia. EDTA free tube for platelet counts Currently on Nplate weekly EDTA free platelet [address] Quiroz. BPH with chronic urinary retention Continue chronic Solis catheter. History of stage I [id number] adenocarcinoma of the ascending colon ( hepatic flexure) Moderately differentiated adenocarcinoma with mucinous features Residual villous adenoma near distal resection margin. status post right hemicolectomy Dr. aCrvalho 2017 History of B12 deficiency on monthly B12 shot Vit B12 is 354 Plan/VTE VTE Prophylaxis Ordered?: Yes VS, I&O, 24H, Fishbone Vital Signs/I&O Vital Signs Date Time Temp Pulse Resp B/P (MAP) Pulse Ox O2 Delivery O2 Flow Rate FiO2 07/17/21 09:00 98 114/53 07/17/21 06:00 98.9 28 92 Room Air I&O- Last 24 Hours up to 6 AM 07/17/21 05:59 Intake Total 185 ml Balance 185 ml Laboratory Data 24H LABS Laboratory Tests 2 07/16/21 17:24: Immature Granulocyte % (Auto) 1.6, Neutrophils (%) (Auto) 70.7H, Lymphocytes (%) (Auto) 18.1L, Monocytes (%) (Auto) 5.7, Eosinophils (%) (Auto) 3.4H, Basophils (%) (Auto) 0.5, Neutrophils # (Auto) 7.2, Lymphocytes # (Auto) 1.8, Monocytes # (Auto) 0.6, Eosinophils # (Auto) 0.4, Basophils # (Auto) 0.1, Nucleated Red Blood Cells % (auto) 0.0, Anion Gap 9, Glomerular Filtration Rate > 60.0, Calcium Level 7.7L, Magnesium Level 0.5*L, Iron Level 19L, Total Iron Binding Capacity 156L, Transferrin % Saturation 12.2L, Ferritin 180, Total Creatine Kinase 129, AG-Tgj-[id number]-Type Natriuretic Peptide 1426H, Vitamin B12 Level 354, Folate 21.1 07/16/21 18:35: Coronavirus (COVID-19)(PCR) NEGATIVE, Influenza Type A (RT-PCR) NEGATIVE, Influenza Type B (RT-PCR) NEGATIVE, Respiratory Syncytial Virus (PCR) NEGATIVE 07/16/21 21:24: Bedside Glucose (Misc Panel) 139H 07/16/21 21:53: Anion Gap 5L, Glomerular Filtration Rate > 60.0, Calcium Level 8.0L, Lactic Acid Level 2.0, Total Bilirubin 0.4, Aspartate Amino Transf (AST/SGOT) 25, Alanine Aminotransferase (ALT/SGPT) 27, Alkaline Phosphatase 73, Total Protein 5.8L, Albumin 1.7L, Albumin/Globulin Ratio 0.4, Procalcitonin <0.05 07/17/21 01:14: Anion Gap 7L, Glomerular Filtration Rate > 60.0, Calcium Level 7.7L 07/17/21 06:00: Anion Gap 8, Glomerular Filtration Rate > 60.0, Calcium Level 7.7L, Immature Granulocyte % (Auto) 2.0, Neutrophils (%) (Auto) 72.4H, Lymphocytes (%) (Auto) 16.0L, Monocytes (%) (Auto) 6.4, Eosinophils (%) (Auto) 2.4, Basophils (%) (Auto) 0.8, Neutrophils # (Auto) 6.6, Lymphocytes # (Auto) 1.5, Monocytes # (Auto) 0.6, Eosinophils # (Auto) 0.2, Basophils # (Auto) 0.1, Nucleated Red Blood Cells % (auto) 0.2H, Lactic Acid Level 2.4*H 07/17/21 07:26: Bedside Glucose (Misc Panel) 158H 07/17/21 08:10: Platelet Count, EDTA Free 40L, Magnesium Level 1.4L CBC/BMP Laboratory Tests 07/16/21 17:24 07/16/21 21:53 07/17/21 01:14 07/17/21 06:00 Microbiology Microbiology 07/17/21 Blood Culture, Received Pending Elle Escamilla MD Jul 17, 2021 11:48
[2021-07-17 14:00] VITALS: BP 105/57
--- NOTE | 2021-07-17 20:08 | ECGEPIP ---
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
[2021-07-17] MEDS: risperiDONE 0.5 MG TAB PO SCH (20:16)
[2021-07-18 06:00] VITALS: BP 130/63
[2021-07-18 06:34] LABS: BASO # 0.1 10^3/uL (0.0-0.2); BASO % 0.6 % (0.0-1.0); EOS # 0.2 10^3/uL (0.0-0.5); EOS % 2.6 % (0.0-3.0); HEMATOCRIT 27.3 % (42.0-52.0); HEMOGLOBIN 8.3 g/dl (13.5-17.5); LYMPH # 1.3 10^3/uL (1.5-5.0); LYMPH % 14.8 % (24.0-44.0); MEAN CORPUSCULAR HEMOGLOBIN 25.9 pg (27.0-33.0); MEAN CORPUSCULAR HGB CONC 30.4 g/dl (32.0-36.5); MONO # 0.6 10^3/uL (0.0-0.8); NEUTROPHILS # 6.4 10^3/uL (1.5-8.5); NEUTROPHILS % 73.4 % (36.0-66.0); RED BLOOD COUNT 3.21 10^6/uL (4.30-6.10); WHITE BLOOD COUNT 8.7 10^3/uL (4.0-10.0)
[2021-07-18 06:47] LABS: BLOOD UREA NITROGEN 19 MG/DL (7-18); CALCIUM LEVEL 7.5 MG/DL (8.8-10.2); CARBON DIOXIDE LEVEL 22 MEQ/L (21-32); CHLORIDE LEVEL 120 MEQ/L (98-107); CREATININE FOR GFR 0.66 MG/DL (0.70-1.30); GLOMERULAR FILTRATION RATE > 60.0 (>35); GLUCOSE, FASTING 142 MG/DL (70-100); SODIUM LEVEL 149 MEQ/L (136-145)
[2021-07-18 06:52] VITALS: BP 130/63
[2021-07-18 07:12] LABS: PLATELET COUNT, AUTOMATED 32 10^3/uL (150-450)
[2021-07-18 07:56] LABS: ALBUMIN 1.6 GM/DL (3.2-5.2); ALT/SGPT 20 U/L (12-78); BILIRUBIN,DIRECT 0.1 MG/DL (0.0-0.2); BILIRUBIN,TOTAL 0.3 MG/DL (0.2-1.0); MAGNESIUM LEVEL 1.8 MG/DL (1.8-2.4); TOTAL PROTEIN 4.8 GM/DL (6.4-8.2)
[2021-07-18] MEDS: D5W 1,000 ML IV SCH ×2 (08:01→18:06)
[2021-07-18] MEDS: POTASSIUM CHLORIDE 10 MEQ SR TABLET PO SCH ×2 (09:33→20:46)
[2021-07-18] MEDS: NYSTATIN 100,000 UNITS/GM TOPICAL PWD 15 GM TOP SCH ×2 (09:34→20:46)
[2021-07-18] MEDS: levETIRAcetam 250MG TABLET (KEPPRA) PO SCH ×2 (09:34→20:45)
[2021-07-18] MEDS: MAGNESIUM GLUCONATE 500 MG TAB PO SCH ×4 (09:34→20:45)
--- NOTE | 2021-07-18 09:49 | IPNPDOC ---
Subjective Date Seen The patient was seen on 07/18/21. Subjective Chief Complaint/HPI Spoke with yesterday and discussed goals of care. says that she just wants the electrolytes acosta corrected and discharged back to [facility] on Monday. She has a meeting set up with Hospice on Monday at [facility]. She plans to take him home with hospice on Monday next week from [facility]. Updated MOLST form to DNR and DNI. Patients remains the same. Sleeping. Resists to being woken up. More responsive and interactive when is here. Electrolytes are being corrected. No acute overnight events. Objective Physical Examination General Exam: Positive: No Acute Distress, Other (somnolent) Eye Exam: Positive: PERRLA, Conjunctiva & lids normal, EOMI; Negative: Sclera icteric ENT Exam: Positive: Atraumatic, Mucous membr. moist/pink, Pharynx Normal Neck Exam: Positive: Supple; Negative: JVD, thyromegaly Chest Exam: Positive: Diminished Heart Exam: Positive: Rate Normal, Regular Rhythm, Normal S1, Normal S2, Murmurs (soft systolic murmur present); Negative: Rubs Telemetry: Positive: PACs Abdomen Exam: Positive: Normal bowel sounds, Soft; Negative: Tenderness Extremity Exam: Positive: Edema (Hands and Feet. Left Foot 3+ greater than R foot ), Other (both the legs are contracted at the knees); Negative: Clubbing, Cyanosis Skin Exam: Positive: Breakdown, Other skin issue (multiple ecchymotic areas superficial throughout upper/lower extremities; multiple sacral decubitus ulcers on admission, blister on bony prominence feet ) Assessment /Plan Assessment Augie Samano is an 81yo M PMH significant for dementia, urinary retention managed w/ a chronic catheter, DM2, seizure disorder, paroxysmal A fib, CAD, and refractory ITP, who arrives with abnormal labs from [place]. He has had multiple hospital admissions in the past year, most recently here 06/22-06/25 for similar presentation when he had rehydration and repletion of electrolytes. Nephrology and urology had seen pt given his chronic solis and penile ulcerations. Advanced dementia more interactive when is here. total assist for ADLs contracted at the knees. Sleeps most of the morning. wakes up around lunch time. Dehydration: Hypernatremia, hyperchloremia and elevated BUN in setting of Poor PO intake and presumed continued GI losses continue dex Hypocalcemia, hypomagnesemia, hypokalemia: getting IV replacements and po replacements Diarrhea Patient has been having diarrhea in the past month GI panel negative 2 weeks ago, laxatives stopped at that time. Diabetes sugars controlled at this time will dc insulin. Seizure disorder: Seizure precautions. Continue home medications. Paroxysmal Afib now in sinus with PACs. He is rate controlled. Given his anemia and history of thrombocytopenia, patient is not on long-term AC. Diastolic Heart Failure: Patient does not appear overloaded-his extremity edema is likely due to malnutrition and severe hypoalbuminemia. Sacral decubiti and pressure injury to heal: Air mattress, turn every 2h and heel boots. Wound care. Penile ulceration urology consulted june 23 and recommended no surgical treatment and importance of decreasing tension on the penis from the catheter. CAD s/p stents: No Asa given thrombocytopenia. 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 Also has pseudothrombocytopenia. EDTA free tube for platelet counts Currently on Nplate weekly EDTA free platelet 40 BPH with chronic urinary retention Continue chronic Solis catheter. History of stage I [id number] adenocarcinoma of the ascending colon ( hepatic flexure) Moderately differentiated adenocarcinoma with mucinous features Residual villous adenoma near distal resection margin. status post right hemicolectomy Dr. Carvalho 2017 History of B12 deficiency on monthly B12 shot Vit B12 is 354 Plan/VTE VTE Prophylaxis Ordered?: Yes VS, I&O, 24H, Fishbone Vital Signs/I&O Vital Signs Date Time Temp Pulse Resp B/P (MAP) Pulse Ox O2 Delivery O2 Flow Rate FiO2 07/18/21 06:52 98.7 94 16 130/63 (85) 91 Room Air I&O- Last 24 Hours up to 6 AM 07/18/21 06:00 Intake Total 1150 ml Output Total 975 ml Balance 175 ml Laboratory Data 24H LABS Laboratory Tests 2 07/17/21 07:26: Bedside Glucose (Misc Panel) 158H 07/17/21 08:10: Platelet Count, EDTA Free 40L, Magnesium Level 1.4L 07/17/21 11:09: Lactic Acid Followup at 4 Hours 1.8 07/17/21 11:24: Bedside Glucose (Misc Panel) 142H 07/17/21 17:04: Bedside Glucose (Misc Panel) 136H 07/17/21 20:35: Bedside Glucose (Misc Panel) 141H 07/18/21 06:02: Immature Granulocyte % (Auto) 1.6, Neutrophils (%) (Auto) 73.4H, Lymphocytes (%) (Auto) 14.8L, Monocytes (%) (Auto) 7.0, Eosinophils (%) (Auto) 2.6, Basophils (%) (Auto) 0.6, Neutrophils # (Auto) 6.4, Lymphocytes # (Auto) 1.3L, Monocytes # (Auto) 0.6, Eosinophils # (Auto) 0.2, Basophils # (Auto) 0.1, Nucleated Red Blood Cells % (auto) 0.6H, Immature Platelet Fraction 26.3H, Anion Gap 7L, Glomerular Filtration Rate > 60.0, Calcium Level 7.5L CBC/BMP Laboratory Tests 07/18/21 06:02 Microbiology Microbiology 07/17/21 Blood Culture - Preliminary, Resulted No growth after 24 hours . All specim... Elle Escamilla MD Jul 18, 2021 07:28
[2021-07-18 14:00] VITALS: BP 127/52
[2021-07-18 16:11] LABS: BLOOD UREA NITROGEN 18 MG/DL (7-18); CALCIUM LEVEL 7.5 MG/DL (8.8-10.2); CARBON DIOXIDE LEVEL 26 MEQ/L (21-32); CHLORIDE LEVEL 115 MEQ/L (98-107); CREATININE FOR GFR 0.85 MG/DL (0.70-1.30); GLOMERULAR FILTRATION RATE > 60.0 (>35); GLUCOSE, FASTING 265 MG/DL (70-100); MAGNESIUM LEVEL 1.8 MG/DL (1.8-2.4); POTASSIUM SERUM 4.1 MEQ/L (3.5-5.1); SODIUM LEVEL 146 MEQ/L (136-145)
[2021-07-18] MEDS: risperiDONE 0.5 MG TAB PO SCH (20:45)
[2021-07-18 22:00] VITALS: BP 132/54
[2021-07-19 06:00] VITALS: BP 109/51
[2021-07-19 07:53] LABS: BASO % 0.4 % (0.0-1.0); EOS # 0.2 10^3/uL (0.0-0.5); EOS % 2.3 % (0.0-3.0); HEMATOCRIT 26.3 % (42.0-52.0); LYMPH # 1.4 10^3/uL (1.5-5.0); LYMPH % 15.3 % (24.0-44.0); MEAN CORPUSCULAR HEMOGLOBIN 25.6 pg (27.0-33.0); MEAN CORPUSCULAR HGB CONC 30.4 g/dl (32.0-36.5); MEAN CORPUSCULAR VOLUME 84.3 fl (80.0-96.0); MONO # 0.6 10^3/uL (0.0-0.8); NEUTROPHILS # 6.5 10^3/uL (1.5-8.5); RED BLOOD COUNT 3.12 10^6/uL (4.30-6.10)
[2021-07-19] MEDS: D5W 1,000 ML IV SCH (07:57)
[2021-07-19 08:07] LABS: PLATELET COUNT, AUTOMATED 23 10^3/uL (150-450)
[2021-07-19 08:11] LABS: BLOOD UREA NITROGEN 16 MG/DL (7-18); CALCIUM LEVEL 7.7 MG/DL (8.8-10.2); CARBON DIOXIDE LEVEL 23 MEQ/L (21-32); CHLORIDE LEVEL 114 MEQ/L (98-107); CREATININE FOR GFR 0.78 MG/DL (0.70-1.30); GLOMERULAR FILTRATION RATE > 60.0 (>35); GLUCOSE, FASTING 224 MG/DL (70-100); POTASSIUM SERUM 3.8 MEQ/L (3.5-5.1); SODIUM LEVEL 143 MEQ/L (136-145)
--- NOTE | 2021-07-19 09:18 | DS.PDOC ---
Discharge Summary General Date of Admission Jul 16, 2021 at 18:49 Date of Discharge 07/19/21 Discharge Summary PROCEDURES PERFORMED DURING STAY: [None]. DISCHARGE DIAGNOSES: Advanced Dementia bed bound, dependent in all ADLS with contractures in legs. Hypomagnesemia Hypernatremia Dehydration Sacrococcygeal decubiti Chronic diarrhea Secondary diagnosis; Chronic refractory ITP Pseudothrombocytopenia needs EDTA free vial for platelet count BPH with indwelling solis Diabetes Adenocarcinoma of the ascending colon ( hepatic flexure) s/p right hemicolectomy 2017 H/o Vit B12 def. Seizure disorder Paroxysmal Afib not on anticoagulation Diastolic heart Failure, CAD s/p stents, Left carotid endarterectomy, GERD COMPLICATIONS/CHIEF COMPLAINT: Hypocalcemia,Hypokalemia,Hypomagnesemia. HOSPITAL COURSE: Augie Samano is an 81yo M PMH significant for dementia, urinary retention managed w/ a chronic catheter, DM2, seizure disorder, paroxysmal A fib, CAD, and refractory ITP, who arrives with abnormal labs from [place]. He has had multiple hospital admissions in the past year, most recently here 06/22-06/25 for similar presentation when he had rehydration and repletion of electrolytes. Nephrology and urology had seen pt given his chronic solis and penile ulcerations. He was admitted for severe hypomagnesemia hyper natremia and hypokalemia. He was felt to have intravascular dehydration with peripheral edema due to severe hypoalbuminemia. Goals of care was discussed with and patient's MOLST form was updated to DNR DNI status. tells me the plan is for him to go home with hospice later this week from [facility]. Patient is discharged back to [facility]. Advanced dementia more interactive when is here. total assist for ADLs contracted at the knees. Sleeps most of the morning. wakes up around lunch time. Dehydration: Hypernatremia, hyperchloremia and elevated BUN in setting of Poor PO intake and presumed continued GI losses Now corrected Hypomagnesemia, hypokalemia: Now corrected Diarrhea Patient has been having diarrhea in the past month GI panel negative 2 weeks ago, laxatives stopped at that time. Diabetes sugars controlled at this time Oral antidiabetic medication stopped. Seizure disorder: Seizure precautions. Continue home medications. Paroxysmal Afib now in sinus with PACs. He is rate controlled. Given his anemia and history of thrombocytopenia, patient is not on usp AC. Diastolic Heart Failure: Patient does not appear overloaded-his extremity edema is likely due to malnutrition and severe hypoalbuminemia. Sacral decubiti and pressure injury to heal: Air mattress, turn every 2h and heel boots. Wound care. Penile ulceration urology consulted june 23 and recommended no surgical treatment and importance of decreasing tension on the penis from the catheter. CAD s/p stents: No Asa given thrombocytopenia. 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 Also has pseudothrombocytopenia. EDTA free tube for platelet counts Currently on Nplate weekly EDTA free platelet 40 BPH with chronic urinary retention Continue chronic Solis catheter. History of stage I [id number] adenocarcinoma of the ascending colon ( hepatic flexu re) Moderately differentiated adenocarcinoma with mucinous features Residual villous adenoma near distal resection margin. status post right hemicolectomy Dr. Carvalho 2017 History of B12 deficiency on monthly B12 shot Vit B12 is 354 DISCHARGE MEDICATIONS: Please see below. ALLERGIES: Please see below. PHYSICAL EXAMINATION ON DISCHARGE: VITAL SIGNS: Please see below. General Exam: Positive: No Acute Distress, Other (somnolent) Eye Exam: Positive: PERRLA, Conjunctiva & lids normal, EOMI; Negative: Sclera icteric ENT Exam: Positive: Atraumatic, Mucous membr. moist/pink, Pharynx Normal Neck Exam: Positive: Supple; Negative: JVD, thyromegaly Chest Exam: Positive: Diminished Heart Exam: Positive: Rate Normal, Regular Rhythm, Normal S1, Normal S2, Murmurs (soft systolic murmur present); Negative: Rubs Telemetry: Positive: PACs Abdomen Exam: Positive: Normal bowel sounds, Soft; Negative: Tenderness Extremity Exam: Positive: Edema (Hands and Feet. Left Foot 3+ greater than R foot ), Other (both the legs are contracted at the knees); Negative: Clubbing, Cyanosis Skin Exam: Positive: Breakdown, Other skin issue (multiple ecchymotic areas superficial throughout upper/lower extremities; multiple sacral decubitus ulcers on admission, blister on bony prominence feet ) LABORATORY DATA: Please see below. ACTIVITY: [As tolerated]. DIET: Pured with nectar thick liquid DISCHARGE PLAN: [facility] DISCHARGE INSTRUCTIONS: Follow-up with hospice DISCHARGE CONDITION: [Stable]. TIME SPENT ON DISCHARGE: 35 minutes. Vital Signs/I&Os Vital Signs Date Time Temp Pulse Resp B/P (MAP) Pulse Ox O2 Delivery O2 Flow Rate FiO2 07/19/21 06:00 97.3 120 20 109/51 (70) 90 Room Air I&O- Last 24 Hours up to 6 AM 07/19/21 06:00 Intake Total 1580 ml Output Total 450 ml Balance 1130 ml Laboratory Data Labs 24H Laboratory Tests 2 07/18/21 11:49: Bedside Glucose (Misc Panel) 211H 07/18/21 15:27: Anion Gap 5L, Glomerular Filtration Rate > 60.0, Calcium Level 7.5L, Magnesium Level 1.8 07/18/21 16:32: Bedside Glucose (Misc Panel) 243H 07/18/21 21:27: Bedside Glucose (Misc Panel) 222H 07/19/21 07:26: Immature Granulocyte % (Auto) 2.0, Neutrophils (%) (Auto) 73.0H, Lymphocytes (%) (Auto) 15.3L, Monocytes (%) (Auto) 7.0, Eosinophils (%) (Auto) 2.3, Basophils (%) (Auto) 0.4, Neutrophils # (Auto) 6.5, Lymphocytes # (Auto) 1.4L, Monocytes # (Auto) 0.6, Eosinophils # (Auto) 0.2, Basophils # (Auto) 0.0, Nucleated Red Blood Cells % (auto) 0.3H, Immature Platelet Fraction 25.3H, Anion Gap 6L, Glomerular Filtration Rate > 60.0, Calcium Level 7.7L CBC/BMP Laboratory Tests 07/18/21 15:27 07/19/21 07:26 FSBS Laboratory Tests Test 07/18/21 11:49 07/18/21 16:32 07/18/21 21:27 Range/Units Bedside Glucose (Misc Panel) 211 243 222 83-110 MG/DL Microbiology Microbiology 07/17/21 Blood Culture - Preliminary, Resulted No Growth after 48 hours. All Specime... Discharge Medications Scheduled Arginine/Glutamine/Calcium Bmb (Rell Packet) 1 Each Powd.pack, 1 POW PO DAILY, (Reported) Bisoprolol Fumarate (Bisoprolol Fumarate) 10 Mg Tablet, 10 MG PO DAILY, (Reported) Insulin Glargine,Hum.rec.anlog (Semglee Pen) 100 Unit/Ml (3 Ml) Insuln.pen, 15 UNIT SC DAILY, (Reported) Levetiracetam (Levetiracetam) 250 Mg Tablet, 500 MG PO QHS, (Reported) Levetiracetam (Levetiracetam) 250 Mg Tablet, 250 MG PO QAM, (Reported) Magnesium Gluconate (Magnesium Gluconate) 27 Mg Tablet, 500 MG PO QID, (Reported) Nystatin (Nystatin Powder) 15 Gm Powder, 1 APPLIC TOP BID, (Reported) WASH AREA WITH GAUZE AND NS THEN APPLY TO LESIONS ON PENIS Potassium Chloride (Potassium Chloride) 20 Meq Tab.er.prt, 20 MEQ PO TID, (Reported) Risperidone (Risperidone Odt) 0.5 Mg Tab.rapdis, 0.5 MG PO QHS, (Reported) Scheduled PRN Acetaminophen (Acetaminophen) 325 Mg Tablet, 650 MG PO Q4H PRN for PAIN LEVEL 1- 6, (Reported) Albuterol Sulf (Albuterol Sulfate) 2.5 Mg/3 Ml Vial.neb, 1 VIAL NEB Q6H PRN for SOB/WHEEZING, (Reported) Diclofenac Sodium (Diclofenac Sodium) 1% 100GM Gel..gram., 1 APLCT TOP QID PRN for SHOULDER PAIN, (Reported) Magnesium Hydroxide (Milk of Magnesia) 400 Mg/5 Ml Oral.susp, 2,400 MG PO DAILY PRN for CONSTIPATION, (Reported) Sodium Phosphate,Whitfield-Dibasic (Enema) 133 Ml Enema, 1 MARBIN AL DAILY PRN for CONSTIPATION, (Reported) Allergies Coded Allergies: cephalexin (Verified Allergy, Severe, made his face peel, 11/04/20) procaine (Verified Allergy, Severe, difficulty breathing, 02/04/20) Penicillins (Verified Allergy, Intermediate, swelling, 02/04/20) ceftriaxone (Verified Adverse Reaction, Unknown, skin peeling, 06/22/21) Elle Escamilla MD Jul 19, 2021 09:16
[2021-07-19 09:26] LABS: MAGNESIUM LEVEL 1.7 MG/DL (1.8-2.4)
[2021-07-19] MEDS: MAGNESIUM GLUCONATE 500 MG TAB PO SCH ×4 (10:16→20:46)
[2021-07-19] MEDS: POTASSIUM CHLORIDE 10 MEQ SR TABLET PO SCH ×2 (10:16→20:46)
[2021-07-19] MEDS: levETIRAcetam 250MG TABLET (KEPPRA) PO SCH ×2 (10:16→20:45)
[2021-07-19] MEDS: NYSTATIN 100,000 UNITS/GM TOPICAL PWD 15 GM TOP SCH ×2 (10:17→21:10)
[2021-07-19] MEDS ORDERED: MAG SULF 1GM/100ML (MAG RUN) 1 GM in IV 1 EA IV ONE (12:50)
[2021-07-19] MEDS ORDERED: FUROSEMIDE 40MG/4ML VIAL (J1940) IV ONE (15:00)
[2021-07-19] MEDS: risperiDONE 0.5 MG TAB PO SCH (20:46)
[2021-07-19 22:00] VITALS: BP 125/55
[2021-07-20 06:00] VITALS: BP 122/69
[2021-07-20] MEDS: POTASSIUM CHLORIDE 10 MEQ SR TABLET PO SCH (08:22)
[2021-07-20] MEDS: MAGNESIUM GLUCONATE 500 MG TAB PO SCH (08:22)
[2021-07-20] MEDS: levETIRAcetam 250MG TABLET (KEPPRA) PO SCH (08:22)
[2021-07-20] MEDS: NYSTATIN 100,000 UNITS/GM TOPICAL PWD 15 GM TOP SCH (09:21)
--- NOTE | 2021-07-20 10:14 | IPNPDOC ---
Date Seen The patient was seen on 07/20/21. Progress Note SUBJECTIVE: Patient is a -year-old [RACE] [GENDER] with OBJECTIVE PHYSICAL EXAMINATION: VITAL SIGNS: Please see below. GENERAL: HEENT: CARDIOVASCULAR: . RESPIRATORY: . ABDOMINAL: EXTREMITIES: NEUROLOGICAL: PSYCHOLOGICAL: LABORATORY DATA, IMAGING STUDIES, MICROBIOLOGY: Please see below. Echocardiogram: . DVT prophylaxis ordered?: ASSESSMENT AND PLAN: This is a -year-old [RACE] [GENDER] with . PROBLEMS: 1. : . 2. : . 3. : . DISPOSITION: . VS, I&O, 24H, Fishbone Vital Signs/I&O Vital Signs Date Time Temp Pulse Resp B/P (MAP) Pulse Ox O2 Delivery O2 Flow Rate FiO2 07/20/21 06:00 97.6 105 19 122/69 (86) 91 Room Air I&O- Last 24 Hours up to 6 AM 07/20/21 05:59 Intake Total 360 ml Output Total 2400 ml Balance -2040 ml Laboratory Data 24H LABS Laboratory Tests 2 07/19/21 11:33: Bedside Glucose (Misc Panel) 155H 07/19/21 16:32: Bedside Glucose (Misc Panel) 208H 07/19/21 20:02: Bedside Glucose (Misc Panel) 187H 07/20/21 06:34: Bedside Glucose (Misc Panel) 155H 07/20/21 09:25: Microbiology Microbiology 07/17/21 Blood Culture - Preliminary, Resulted No Growth after 72 hours. All specime... ULYSSES RODRIGUEZ MD Jul 20, 2021 10:14
== END 2021-07-20 12:27 | DRG 640 ==
LOC: EDBD 17:06 → M ED 17:06 → M ED INP 18:49 → ENRESERV 21:26 → M MSPAV 23:08
PROVIDERS: ADMIT Family Medicine; ATTEND Internal Medicine Nephrology
DX: E87.0 Hyperosmolality and hypernatremia (principal); L89.153 Pressure ulcer of sacral region, stage 3; E46 Unspecified protein-calorie malnutrition; I50.32 Chronic diastolic (congestive) heart failure; D69.3 Immune thrombocytopenic purpura; E87.8 Other disorders of electrolyte and fluid balance, not elsewhere classified; E83.51 Hypocalcemia; E83.42 Hypomagnesemia; E87.6 Hypokalemia; E86.0 Dehydration; F03.90 Unspecified dementia, unspecified severity, without behavioral disturbance, psychotic disturbance, mood disturbance, and anxiety; E11.9 Type 2 diabetes mellitus without complications; N48.5 Ulcer of penis; I48.0 Paroxysmal atrial fibrillation; K21.9 Gastro-esophageal reflux disease without esophagitis; I25.10 Atherosclerotic heart disease of native coronary artery without angina pectoris; Z95.2 Presence of prosthetic heart valve; N40.0 Benign prostatic hyperplasia without lower urinary tract symptoms; G40.909 Epilepsy, unspecified, not intractable, without status epilepticus; Z85.038 Personal history of other malignant neoplasm of large intestine; Z79.4 Long term (current) use of insulin; Z79.899 Other long term (current) drug therapy; Z88.0 Allergy status to penicillin; Z88.8 Allergy status to other drugs, medicaments and biological substances; Z87.891 Personal history of nicotine dependence; Z66 Do not resuscitate

== ENCOUNTER → 2021-07-16 | Outpatient (REF) | payer MEDICARE | LOC: SKLAB2 16:12 | PROVIDERS: ATTEND Family Medicine | DX: D64.9 Anemia, unspecified (principal); D69.6 Thrombocytopenia, unspecified ==

== ENCOUNTER → 2021-07-16 | Outpatient (REF) | payer MEDICARE ==
[2021-07-16 13:19] LABS: BLOOD UREA NITROGEN 24 MG/DL (7-18); CALCIUM LEVEL 7.6 MG/DL (8.8-10.2); CARBON DIOXIDE LEVEL 25 MEQ/L (21-32); CHLORIDE LEVEL 117 MEQ/L (98-107); CREATININE FOR GFR 0.73 MG/DL (0.70-1.30); GLOMERULAR FILTRATION RATE > 60.0 (>35); GLUCOSE, FASTING 170 MG/DL (70-100); MAGNESIUM LEVEL 0.5 MG/DL (1.8-2.4); POTASSIUM SERUM 3.2 MEQ/L (3.5-5.1); SODIUM LEVEL 150 MEQ/L (136-145)
== END ==
LOC: SKLAB2 07:24
PROVIDERS: ATTEND Family Medicine
DX: E83.42 Hypomagnesemia (principal)